=== PATIENT | female | born 1985 | race Caucasian/White ===

== ENCOUNTER 2017-10-14 16:23 | Emergency (ER) | payer OTHER, SELFPAY ==
[2017-10-14 16:24] VITALS: BP 146/97; PULSE 110; RESP 16; TEMP 37.1; O2SAT 99; BMI 45.1
--- NOTE | 2017-10-14 16:32 | CT_ITS ---
STUDY: CT ABDOMEN AND PELVIS WITH CONTRAST REASON FOR EXAM: Female, 32 years old. Chest pain. History of breast cancer and uterine cancer. RADIATION DOSAGE (If Supplied By Facility): CTDIvol = ( 19.44 ) mGy, DLP = ( 1998.78 ) mGycm TECHNIQUE: Transaxial images were obtained from the dome of the diaphragm to the symphysis pubis without oral contrast. Intravenous contrast was administered. Sagittal and coronal images were reconstructed. Individualized dose optimization techniques were used for this CT. COMPARISON: 03/26/2017. FINDINGS: There are no calcified gallstones present. The liver is within normal limits. There are no suspicious hepatic lesions. The spleen is normal in size. The pancreas is within normal limits. The adrenal glands are within normal limits. There are no obstructing renal stones. There is no hydronephrosis. There are no focal renal lesions. Normal visualized stomach. There is no bowel obstruction or inflammation. The appendix is visualized and appears normal. The aorta is normal in caliber. There is no abdominal or pelvic free air, free fluid, fluid collection or lymphadenopathy. The patient is status post hysterectomy. There are no destructive osseous lesions. CT/Abdomen/Pelvis without Cont IMPRESSION: No acute abdominal or pelvic pathology. Fatty liver. Electronically Signed: Darci Velazquez, at 19:17 EST Tel , Service support ,
--- NOTE | 2017-10-14 16:41 | CT_ITS ---
STUDY: CTA CHEST REASON FOR EXAM: Female, 32 years old. Chest pain RADIATION DOSAGE (If Supplied By Facility): DLP = ( 1999 ) mGycm TECHNIQUE: The examination was performed with the intravenous administration of 100ML ml of Isovue 300 contrast material. Post-processing of the angiographic images was performed, with multiplanar reformation and 3D reconstruction. Individualized dose optimization techniques were used for this CT. COMPARISON: 03/10/2017 FINDINGS: There are no pulmonary infiltrates or pleural effusions. There is no pneumothorax. There are no filling defects within the pulmonary arteries to suggest pulmonary embolus. There is no evidence of thoracic aortic aneurysm or dissection. The heart and pericardium are within normal limits. There is no thoracic lymphadenopathy. Images through the upper abdomen demonstrate no significant abnormality. There are no destructive osseous lesions. CT/CTA Chest W/WO Contrast IMPRESSION: No evidence of pulmonary and was or other acute thoracic disease. Electronically Signed: Darci Velazquez, at 18:54 EST Tel , Service support ,
--- NOTE | 2017-10-14 16:41 | NURSING ---
ATTEMPTED TO CALL [facility] TO GET RESULTS OF URINE. NO ANSWER AFTER LETTING PHONE RING. HAD BUTT TRIMMER CONNECTED ME TO BACK LINE , SAME RESULT. AWARE
[2017-10-14] MEDS: 0.9% Normal Saline 1,000 ML 999 ML IV (16:50)
[2017-10-14] MEDS: Ondansetron 4 MG/2 ML Vial IV (16:50)
[2017-10-14 16:55] LABS: Absolute Neutrophil Count 4.2 X10^3/uL (2.0-7.7); Basophil# 0.03 X10^3/uL; Basophil% 0.4 % (0-1); Eosinophil# 0.28 X10^3/uL; Eosinophils% 3.4 % (0-5); Hematocrit 44.2 % (37-47); Hemoglobin 15.3 g/dl (12.0-15.0); Lymphocyte % 36.5 % (19-41); Mean Corp Hgb Conc 34.6 g/gl (32-36); Mean Corpuscular Hgb 29.6 pg (27.0-32.0); Mean Corpuscular Volume 85.5 fL (81-99); Mean Platelet Vol. 9.1 fl (6.2-12.0); Monocyte# 0.71 X10^3/uL; Monocyte% 8.6 % (0-10); Neutrophil # 4.17 X10^3/uL (2.7-7.7); Neutrophil % 50.9 % (47-70); Platelet Count 260 K/mm3 (150-450); RBC Distribution Width CV 12.7 % (11.6-14.6); RBC Distribution Width SD 39.5 fl (35.1-43.9); Red Blood Count 5.17 M/mm3 (4.2-5.4); White Blood Count 8.2 K/mm3 (4.4-11.0)
[2017-10-14 16:56] LABS: POSITIVE COUNT NO; POSITIVE DIFFERENTIAL NO; POSITIVE MORPHOLOGY NO
[2017-10-14] MEDS: MethylPREDNISolone 125 MG/2 ML Vial IV (17:09)
[2017-10-14] MEDS: DiphenhydrAMINE 50 MG/ML Syringe 25 MG IV (17:09)
[2017-10-14] MEDS: HYDROmorphone 1 MG/ML Syringe IV (17:27)
--- NOTE | 2017-10-14 17:28 | ED.DCSUM_ITS ---
- ER Visit Summary Date of Service: 10/14/17 Chief Complaint: Left flank pain History of Present Illness: The patient is a 32 F presenting with left flank pain. She states this started approximately 5 days ago and has progressively worsened. She noticed blood in her urine. She has had mild dysuria. She has had nausea and vomiting. She went to urgent care today. She states they tested her urine which had blood but no signs of infection. They were concerned about kidney stone and sent her to the ED. She has a history of breast cancer. She sees Dr. Marion. History of total hysterectomy. Physical Examination: Vitals are stable. Patient is afebrile. Alert no acute distress. HEENT exam is unremarkable. Neck is supple. Lungs are clear and equal bilaterally. Heart is regular rate and rhythm. Abdomen is soft nontender nondistended. No guarding or rebound Back: Left CVA tenderness and left mid back tenderness Extremities are unremarkable. Skin is warm and dry. Remainder of exam is unremarkable. Emergency Department Course and Treatment: She was given morphine and Zofran. She continues to have pain. She is given Dilaudid IV. She was given pretreatment for her CT scan with Solu-Medrol and Benadryl. CBC is unremarkable. Chemistries unremarkable. Urinalysis is normal. Her back pain is in the left mid back and left flank. With her history of cancer and hormone replacement, CTA chest was obtained which shows no evidence of PE. CT abdomen shows no evidence of kidney stone or acute process. On further discussion patient states that she was not sure if the bleeding was in her urine or vaginal bleeding. She denies any vaginal discharge or rash. Pelvic exam shows no evidence of bleeding, rash, discharge. On further discussion with the patient, she does have a 1-year-old who she carries frequently. She also notes that she lifted a mattress recently. I believe that she may have strained her back. She states that she also has used a new body soap and women's soap which may be contributing to her dysuria. She is advised to discontinue use of the new soaps. She was given Valium p.o. she is advised to follow-up with her primary care physician. Advised return to ED if worsening complaints. Disposition: Discharge home Impression: Back pain, dysuria This note was generated with [employer] software. It may contain incorrect words, spelling, and punctuation that were not noted in review of the chart prior to signing ED Disposition - Plan for ED Patient: Chief Complaint: Flank Pain Referrals: Grant Flynn RADIO ARTIST-C [Primary Care Provider] -
[2017-10-14 17:29] LABS: BUN 9 mg/dL (7-18); Creatinine, Serum 0.82 mg/dL (0.55-1.02); EST Glomerular Filtration Rate 86 mL/min (>60); Estimated Creatinine Clearance 81.48 ml/min; Glucose 104 mg/dL (74-106)
[2017-10-14 17:30] LABS: Anion Gap 9 (5-15); BUN/Creat Ratio 10.9 RATIO (10-20); Calcium,Total 9.1 mg/dL (8.5-10.1); Chloride 107 mmol/L (98-107); Est Glom Filt Rate - Afr Amer 103 mL/min (>60); Potassium 3.6 mmol/L (3.5-5.1); Sodium Level 141 mmol/L (136-145)
[2017-10-14 18:19] LABS: Bacteria 0 SEEN /hpf (None Seen); Mucous, Urine 0 SEEN /hpf (<or=2+); Red Blood Cells-Urine 0 SEEN /hpf (0-5)
[2017-10-14 18:27] LABS: Color, Urine Straw (Yellow); Glucose, Dipstick Normal (Normal); Ketone-Dipstick Negative (Negative); Leukocyte Esterase-Dipstick Negative /ul (Negative); Nitrite-Dipstick Negative (Negative); Occult Blood-Urine Negative /ul (Negative); Protein-Dipstick Negative (Negative); Urine Bilirubin Dipstick Negative (Negative); Urine Clarity Sl. Cloudy (Clear); Urine Urobilinogen Normal (Normal); Urine pH 6.5 (5.0 - 8.0)
[2017-10-14 18:42] LABS: Squamous Epithelial Cells - UA 0-5 SEEN /hpf (5-10)
[2017-10-14 18:43] LABS: White Blood Cells 0-5 SEEN /hpf (0-5)
[2017-10-14] MEDS: DiphenhydrAMINE 50 MG/ML Syringe 12.5 MG IV (18:46)
[2017-10-14 19:44] VITALS: BP 133/82; PULSE 89; RESP 16; O2SAT 96
[2017-10-14] MEDS: diazePAM 5 MG Tablet PO (19:44)
--- NOTE | 2017-10-14 20:02 | DCINST.ED_ITS ---
ED Disposition - Plan for ED Patient: Chief Complaint: Flank Pain Instructions: ED Spasm Back No Trauma, ED Dysuria Uncertain Cause Prescriptions: Phenazopyridine HCl [Pyridium] 200 mg PO BID PRN PRN #10 tablet PRN Reason: Pain Cyclobenzaprine [Flexeril] 10 mg PO TID PRN #20 tablet PRN Reason: Muscle Spasm Referrals: Grant Flynn, AMMUNITION OFFICER-C [Primary Care Provider] -
[2017-10-14 20:42] VITALS: BP 139/85; PULSE 72; RESP 17; O2SAT 93
--- NOTE | 2017-10-14 20:43 | ED.RN ---
PT EDUCATED ON DISCHARGE INSTRUCTIONS, AND HOME GOING PRESCRIPTIONS. PT VERBALIZES UNDERSTANDING. PT EDUCATED NOT TO DRIVE AFTER HAVING NARCOTIC MEDICATION, AND VERBALIZES UNDERSTANDING. IV D/C AND COVERED WITH 2X2 GAUZE DRESSING. MINIMAL BLEEDING NOTED. PT DRESSES SELF.
== END 2017-10-14 20:46 | disposition home or self-care (01) ==
LOC: ED 17:03
PROVIDERS: Emergency Provider Emergency Medicine; Family Provider Nurse Practitioner Family; PCP Nurse Practitioner Family
DX: R30.0 Dysuria (principal); M54.6 Pain in thoracic spine; Z85.3 Personal history of malignant neoplasm of breast; Z79.899 Other long term (current) drug therapy
CPT/HCPCS: 71275; 74176; 80048; 81001; 85025; 99284; J7030; Q9967; J2405

== ENCOUNTER → 2017-10-27 08:49 | Outpatient (CLI) | payer OTHER, SELFPAY ==
[2017-10-27 10:19] LABS: Absolute Lymphocyte Count 2.27 X10^3/ul (0.83-4.51); Absolute Neutrophil Count 5.7 X10^3/uL (2.0-7.7); Basophil# 0.03 X10^3/uL; Basophil% 0.3 % (0-1); Eosinophil# 0.22 X10^3/uL; Eosinophils% 2.5 % (0-5); Hematocrit 41.5 % (37-47); Hemoglobin 14.1 g/dl (12.0-15.0); Lymphocyte # 2.27 X10^3/ul (4.0); Mean Corpuscular Volume 85.2 fL (81-99); Mean Platelet Vol. 9.3 fl (6.2-12.0); Monocyte# 0.45 X10^3/uL; Monocyte% 5.2 % (0-10); Neutrophil # 5.74 X10^3/uL (2.7-7.7); Neutrophil % 65.8 % (47-70); Platelet Count 297 K/mm3 (150-450); RBC Distribution Width CV 12.4 % (11.6-14.6); Red Blood Count 4.87 M/mm3 (4.2-5.4); White Blood Count 8.7 K/mm3 (4.4-11.0)
[2017-10-27 10:20] LABS: POSITIVE COUNT NO; POSITIVE DIFFERENTIAL NO; POSITIVE MORPHOLOGY NO
[2017-10-27 10:45] LABS: ALB/GLOB Ratio 0.9 RATIO (0.9-2.4); AST(SGOT) 19 U/L (15-37); Alanine Aminotransfer ALT/SGPT 36 U/L (13-56); Albumin, Serum 3.7 g/dL (3.2-5.0); Alkaline Phosphatase 120 U/L (45-117); Anion Gap 7 (5-15); BUN 10 mg/dL (7-18); BUN/Creat Ratio 12.3 RATIO (10-20); Calcium,Total 8.7 mg/dL (8.5-10.1); Chloride 106 mmol/L (98-107); Cholesterol 180 mg/dL (200); Creatinine, Serum 0.82 mg/dL (0.55-1.02); EST Glomerular Filtration Rate 86 mL/min (>60); Est Glom Filt Rate - Afr Amer 105 mL/min (>60); Globulin 3.9 g/dL (2.2-4.2); Glucose 92 mg/dL (74-106); High Density Lipoprotein 45 mg/dL; Potassium 3.9 mmol/L (3.5-5.1); Protein, Total 7.6 g/dL (6.4-8.2); Sodium Level 142 mmol/L (136-145); Thyroid Stim Hormone (TSH) 1.43 uIU/mL (0.358-3.74); Triglycerides 112 mg/dL; Very Low Density Lipoprotein 22 mg/dL (5-40)
[2017-10-27 11:20] LABS: Vitamin B12 397 pg/mL (211-911); Vitamin D,25 Hydroxy 10.7 ng/mL (29.95-100.01)
== END ==
LOC: MTLAB 08:52
PROVIDERS: Family Provider Nurse Practitioner Family; PCP Nurse Practitioner Family; Visit Provider Internal Medicine
DX: G62.9 Polyneuropathy, unspecified (principal); C79.9 Secondary malignant neoplasm of unspecified site; C50.411 Malignant neoplasm of upper-outer quadrant of right female breast; Z17.0 Estrogen receptor positive status [ER+]; I10 Essential (primary) hypertension
CPT/HCPCS: 36415; 80053; 80061; 82306; 82607; 84443; 85025

== ENCOUNTER 2018-03-08 11:29 | Emergency (ER) | payer OTHER, SELFPAY ==
[2018-03-08 11:30] VITALS: BP 162/97; PULSE 116; RESP 18; TEMP 36.3; O2SAT 98; BMI 46.0
--- NOTE | 2018-03-08 11:58 | ED.DCSUM_ITS ---
- ER Visit Summary Date of Service: 03/08/18 Chief Complaint: Migraine, nausea vomiting History of Present Illness: The patient is a 32 F presents to the emergency department with headache and nausea and vomiting. The patient states that she cut her left fifth toe about a week ago. He states she cannot get it to stop bleeding. She went to urgent care on Monday. She had a tetanus shot was placed on Keflex. She states she has been taking the Keflex 3 times a day. Last night, after taking it, she became acutely nauseated. She states she had a few bouts of emesis. Since then, she has had a dull progressive headache. She has a history of migraine and states this feels similar. She is also having diffuse muscle pains. She denies any fevers or chills. She denies any trauma or carbon monoxide exposure. She denies any abdominal pain, just cramping with the vomiting. She states she has been on Keflex before and it did seem to tolerate it. Physical Examination: Well-appearing patient is in no acute distress. Head is normocephalic, atraumatic. Pupils equal round reactive, extraocular muscles intact. There is no temporal artery tenderness. There is no vesicular rash. Neck supple. Kernig's and Brudzinski's are negative. Heart regular rate and rhythm. Lungs clear, chest nontender. Abdomen soft, nontender, nondistended. Neuro exam displays no focal or lateralizing deficit. 2+ symmetric lower extremity reflexes. No clonus. No ataxia or gait abnormality. Test Results: [] Emergency Department Course and Treatment: The patient has benign neurologic examination. She is not encephalopathic. She is not meningitic. I do feel that this is more likely migraine that was caused by medication intolerance. There is no rigidity of the muscles. Compartments are soft. She really has no symptoms that are concerning for rhabdomyolysis. IV was established. Patient was treated with Toradol, Benadryl, and Compazine. She had significant improvement of her headache. I did obtain screening labs given her vomiting. These were unremarkable. On reevaluation she is resting comfortably. At this time, I do feel that she is safe for outpatient therapy. I am going to have her stop her Keflex as her foot wound is well healed without evidence of cellulitis. She will be treated with antiemetics. She will be discharged home , return with any worsening symptoms and she is comfortable with this. Treatment Plan: [] Disposition: Discharge Impression: 1. Headache 2. Medication reaction This note was generated with [employer] dictation software. It may contain incorrect words, spelling, and punctuation that were not noted in review of the chart prior to signing ED Disposition - Plan for ED Patient: Chief Complaint: Headache Instructions: ED Cephalgia Unspecified Prescriptions: Ondansetron [Zofran Odt] 4 mg PO Q8H PRN PRN #10 tab PRN Reason: Nausea Referrals: Alvaro Gonzalez MD [Primary Care Provider] -
[2018-03-08] MEDS: Ketorolac 30 MG/ML Syringe IV (12:07)
[2018-03-08] MEDS: DiphenhydrAMINE 50 MG/ML Syringe IV (12:07)
[2018-03-08] MEDS: 0.9% Normal Saline 1,000 ML 1000 ML IV (12:07)
[2018-03-08] MEDS: proCHLORPERazine 10 MG/2 ML Vial IV (12:07)
[2018-03-08 12:25] LABS: Absolute Lymphocyte Count 1.71 X10^3/ul (0.83-4.51); Absolute Neutrophil Count 5.4 X10^3/uL (2.0-7.7); Basophil# 0.02 X10^3/uL; Basophil% 0.3 % (0-1); Eosinophil# 0.23 X10^3/uL; Hematocrit 42.3 % (37-47); Hemoglobin 14.2 g/dl (12.0-15.0); Lymphocyte # 1.71 X10^3/ul (4.0); Lymphocyte % 22.1 % (19-41); Mean Corp Hgb Conc 33.6 g/gl (32-36); Mean Corpuscular Hgb 28.7 pg (27.0-32.0); Mean Corpuscular Volume 85.6 fL (81-99); Mean Platelet Vol. 9.3 fl (6.2-12.0); Monocyte% 5.2 % (0-10); Neutrophil # 5.37 X10^3/uL (2.7-7.7); Neutrophil % 69.3 % (47-70); Platelet Count 234 K/mm3 (150-450); RBC Distribution Width CV 12.6 % (11.6-14.6); RBC Distribution Width SD 39.6 fl (35.1-43.9); Red Blood Count 4.94 M/mm3 (4.2-5.4); White Blood Count 7.7 K/mm3 (4.4-11.0)
[2018-03-08 12:34] LABS: Anion Gap 9 (5-15); BUN 11 mg/dL (7-18); BUN/Creat Ratio 12.6 RATIO (10-20); Calcium,Total 8.6 mg/dL (8.5-10.1); Chloride 105 mmol/L (98-107); Creatinine, Serum 0.87 mg/dL (0.55-1.02); EST Glomerular Filtration Rate 80 mL/min (>60); Est Glom Filt Rate - Afr Amer 96 mL/min (>60); Estimated Creatinine Clearance 76.79 ml/min; Glucose 95 mg/dL (74-106); Potassium 3.5 mmol/L (3.5-5.1); Sodium Level 142 mmol/L (136-145)
[2018-03-08 12:37] LABS: POSITIVE COUNT NO; POSITIVE DIFFERENTIAL NO; POSITIVE MORPHOLOGY NO
== END 2018-03-08 13:01 | disposition home or self-care (01) ==
PROVIDERS: Emergency Provider Emergency Medicine; Family Provider Internal Medicine; PCP Internal Medicine
DX: G44.40 Drug-induced headache, not elsewhere classified, not intractable (principal); T36.1X5A Adverse effect of cephalosporins and other beta-lactam antibiotics, initial encounter; Y92.9 Unspecified place or not applicable; E66.9 Obesity, unspecified
CPT/HCPCS: 80048; 85025; 96374; 96375; 99284; J7030

== ENCOUNTER → 2018-04-20 13:58 | Outpatient (CLI) | payer OTHER, SELFPAY | PROVIDERS: Family Provider Internal Medicine; PCP Internal Medicine; Visit Provider Physician Assistant | DX: M25.561 Pain in right knee (principal) | CPT/HCPCS: 73564 ==

== ENCOUNTER 2018-05-26 23:39 | Emergency (ER) | payer OTHER, SELFPAY ==
[2018-05-26 23:40] VITALS: BP 157/110; PULSE 105; RESP 15; TEMP 36.8; O2SAT 97; BMI 44.2
[2018-05-27 00:35] VITALS: BP 161/110; PULSE 94; RESP 18; O2SAT 96
[2018-05-27] MEDS: Ketorolac 30 MG/ML Syringe IV (00:41)
[2018-05-27] MEDS: DiphenhydrAMINE 50 MG/ML Syringe 25 MG IV (00:42)
[2018-05-27] MEDS: 0.9% Normal Saline 1,000 ML 999 ML IV (00:42)
[2018-05-27] MEDS: proCHLORPERazine 10 MG/2 ML Vial IV (00:42)
[2018-05-27] MEDS: MethylPREDNISolone 125 MG/2 ML Vial IV (00:42)
--- NOTE | 2018-05-27 01:45 | ED.VISSUMM ---
- ER Visit Summary Date of Service: 05/27/18 Chief Complaint: Allergic reaction History of Present Illness: The patient is a 32 F with a possible allergic reaction. Patient has had ongoing headaches. She has a history of migraines. She was recently started on sumatriptan. She took a dose this past Monday and then another dose this evening. After the dose this evening she had some chest tightness, anxiety, and felt like something was in her throat. She has a history of multiple allergies and has required epinephrine for anaphylaxis in the past. She did not take epinephrine this evening, but did try Benadryl. It did not seem to help much. Denies any other new or different headache symptoms. No trauma. No blood thinners. Denies any confusion. Denies abdominal cramping or diarrhea. Denies any wheezing. Physical Examination: Blood pressure 157/110. Heart rate 105. Vital signs otherwise unremarkable. Afebrile. Patient is sitting in a dark room with her eyes covered. Head and neck atraumatic. HEENT exam on her [place]. Cranial nerves grossly intact. Heart tachycardic but regular. Lungs clear. No gross neurologic abnormalities. Alert and oriented. Test Results: None indicated Emergency Department Course and Treatment: Patient was treated with fluids, Toradol, Benadryl, Compazine, and Solu-Medrol. On reevaluation, the patient's allergy symptoms have resolved. Her headache is slightly better, but she does have some persistent headache. Her heart rate is 93. She feels comfortable going home. There is no indication for emergent diagnostic testing otherwise. No indication for hospitalization at this point. Patient was prescribed a course of Pepcid, Benadryl, and prednisone. She will discontinue sumatriptan. She has a referral to neurology. She will return for any new or worsening issues. Treatment Plan: As above Disposition: Discharged Impression: 1. Headache 2. Allergic reaction to sumatriptan This note was generated with [employer] dictation software. It may contain incorrect words, spelling, and punctuation that were not noted in review of the chart prior to signing ED Disposition - Plan for ED Patient: Chief Complaint: Allergic Reaction Referrals: Alvaro Gonzalez MD [Primary Care Provider] -
--- NOTE | 2018-05-27 01:48 | ED.DEP ---
ED Disposition - Plan for ED Patient: Chief Complaint: Allergic Reaction Instructions: ED Drug React Allergic Prescriptions: Prednisone [Deltasone] 60 mg PO DAILY #15 tab Famotidine [Pepcid] 20 mg PO BID #10 tab Diphenhydramine HCl [Benadryl Allergy] 25 mg PO TID #15 tab Referrals: Alvaro Gonzalez MD [Primary Care Provider] -
[2018-05-27 02:18] VITALS: BP 141/91; PULSE 89; RESP 15
== END 2018-05-27 02:21 | disposition home or self-care (01) ==
LOC: ED 05-27 00:30
PROVIDERS: Emergency Provider Emergency Medicine; Family Provider Internal Medicine; PCP Internal Medicine
DX: R51 Headache (principal); T39.8X5A Adverse effect of other nonopioid analgesics and antipyretics, not elsewhere classified, initial encounter; Y92.9 Unspecified place or not applicable; I10 Essential (primary) hypertension; Z85.3 Personal history of malignant neoplasm of breast; F32.9 Major depressive disorder, single episode, unspecified; F41.9 Anxiety disorder, unspecified
CPT/HCPCS: 96361; 96374; 96375; 99283; J7030; A4216

== ENCOUNTER → 2018-05-29 09:54 | Outpatient (CLI) | payer OTHER, SELFPAY ==
[2018-05-29 11:16] LABS: Hemoglobin A1c 5.7 % (4.2-6.3)
[2018-05-29 11:34] LABS: Rheumatoid Factor < 10.0 IU/mL (<15); Thyroid Stim Hormone (TSH) 1.56 uIU/mL (0.358-3.74)
[2018-05-29 11:42] LABS: Vitamin B12 260 pg/mL (211-911); Vitamin D,25 Hydroxy 19.2 ng/mL (29.95-100.01)
[2018-05-30 14:07] LABS: SJOGREN'S Anti-SS-A test < 0.2 AI (0.0-0.9); SJOGREN'S Anti-SS-B test < 0.2 AI (0.0-0.9)
[2018-05-30 15:12] LABS: ANTINUCLEAR ANTIBODIES DIRECT Negative (Negative)
[2018-06-01 13:10] LABS: Albumin 3.5 g/dL (2.9-4.4); Albumin, Ur 24.6 % (.); Alpha-1-Globulin, Ur 6.6 % (.); Alpha-1-Globulins 0.2 g/dL (0.0-0.4); Alpha-2-Globulins 0.7 g/dL (0.4-1.0); Alpha-2-Globulins, Ur 20.2 % (.); Beta Globulin, Ur 33.8 % (.); Cytoplasmic Ab (C-ANCA) <1:20 titer (Neg:<1:20); Gamma Globulin 0.9 g/dL (0.4-1.8); Gamma Globulin, Ur 14.9 % (.); Immunoglobulin A 204 mg/dL (87-352); Immunoglobulin G 986 mg/dL (700-1600); Immunoglobulin M 50 mg/dL (26-217); M-Spike, Ur % Not Observed % (Not Observed); PROEL- TOTAL PROTEIN 6.6 g/dL (6.0-8.5); Total Protein, Ur 9.6 mg/dL (Not Estab.)
[2018-06-01 13:40] LABS: IFE Result, Ur Comment: (.); Perinuclear Ab (P-ANCA) <1:20 titer (Neg:<1:20)
== END ==
PROVIDERS: Family Provider Internal Medicine; PCP Internal Medicine; Referring Provider Psychiatry & Neurology Neurology; Visit Provider Psychiatry & Neurology Neurology
DX: G62.9 Polyneuropathy, unspecified (principal)
CPT/HCPCS: 36415; 82306; 82607; 82784; 83036; 84165; 84166; 84443; 86038; 86235; 86256; 86334; 86335; 86431

== ENCOUNTER → 2018-06-07 10:14 | Outpatient (CLI) | payer OTHER, SELFPAY ==
--- NOTE | 2018-06-07 10:21 | MRI_ITS ---
STUDY: MRI BRAIN WITH AND WITHOUT CONTRAST REASON FOR EXAM: Female, 32 years old. co worsenig headaches frequency/severity; HX BREAST CA. TECHNIQUE: Standardized multiplanar fat and water weighted pulse sequences were obtained. 10 ml of Gadavist contrast material was administered intravenously for the contrast portion of the examination. COMPARISON: CT dated March 22, 2017 FINDINGS: Normal size of the ventricles and extra-axial spaces for the patient's age. Normal white matter tracts of the supratentorial brain. Normal bilateral basal ganglia. Normal thalami. There is no extra-axial fluid accumulation. Normal flow voids within the major intracranial circulation suggesting patency by spin echo criteria. Normal venous enhancement. There is no enhancing intra-axial or extra-axial abnormality. Normal sella turcica, pituitary gland, infundibular stalk, optic chiasm and hypothalamus. Normal tectal plate and pineal gland. Normal midbrain, veronica and medulla. Normal cerebellum. Normal basal cisterns. Normal bilateral temporal bones. Normal bilateral internal auditory canals. No demonstrated orbital abnormality, within the constraints of a routine brain study. Normal visualized paranasal sinuses. Normal calvarium and skull base. Normal visualized soft tissue structures. Normal visualized upper cervical spine. MRI/Brain W/WO Contrast IMPRESSION: Normal unenhanced and enhanced MRI of the brain. Electronically Signed: Matt Sanchez MD at 10:37 EDT Tel , Service support ,
== END ==
LOC: MRI 10:15
PROVIDERS: Family Provider Internal Medicine; PCP Internal Medicine; Referring Provider Psychiatry & Neurology Neurology; Visit Provider Psychiatry & Neurology Neurology
DX: R51 Headache (principal)
CPT/HCPCS: 70553; A9585

== ENCOUNTER → 2018-08-17 10:50 | Outpatient (CLI) | payer OTHER, SELFPAY ==
[2018-08-17 10:50] VITALS: BMI 43.2
--- NOTE | 2018-08-17 10:57 | RAD_ITS ---
HISTORY: Neck pain. History of breast and uterine cancer COMPARISON: None FINDINGS: XR Spine Cervical 5 views The cervical vertebra show normal height and alignment. No fracture or suspicious lesion. Posterior elements appear intact. No spondylolisthesis. Cervical disc space heights appear preserved. The C1-C2 relationship is unremarkable. The paravertebral soft tissues appear negative. IMPRESSION: Normal cervical spine. at 4624 Reported and signed by: Edy Khan MD Electronically Signed: Edy Khan, at 4:24 EST Tel , Service support , RAD/Cerv Spine 4 or 5 Views
--- NOTE | 2018-08-17 10:57 | RAD_ITS ---
HISTORY: Low back pain. History of breast and uterine cancer. COMPARISON: CT abdomen and pelvis 10/14/2017 FINDINGS: XR Spine Lumbar 5 views With comparison to previous CT, no significant change. Straightening of the lumbar spine with loss of the normal lumbar lordosis. Minimal retrolisthesis of L4 on L5, unchanged. Lumbar vertebra are normal in height. No fracture or suspicious bony lesion. L4-5 minor disc space narrowing accompanied by mild endplate spurring. The SI joints appear preserved. RAD/L/S Spine Min 4 Views IMPRESSION: 1. No fracture, acute disease, or metastatic bone disease identified. 2. L4-5 early degenerative disc disease. 3. Loss of the normal lumbar lordosis, unchanged. at 5908 Reported and signed by: Edy Khan MD Electronically Signed: Edy Khan, at 4:21 EST Tel , Service support ,
== END ==
PROVIDERS: Family Provider Internal Medicine; PCP Internal Medicine; Referring Provider Anesthesiology; Visit Provider Anesthesiology
DX: M54.2 Cervicalgia (principal); M54.5 Low back pain
CPT/HCPCS: 72050; 72110

== ENCOUNTER → 2018-10-09 14:43 | Outpatient (CLI) | payer OTHER, SELFPAY ==
[2018-10-09 13:36] VITALS: BMI 43.2
[2018-10-09 17:29] LABS: Absolute Lymphocyte Count 2.87 X10^3/ul (0.83-4.51); Absolute Neutrophil Count 4.7 X10^3/uL (2.0-7.7); Basophil# 0.02 X10^3/uL; Basophil% 0.2 % (0-1); Eosinophils% 1.2 % (0-5); Hematocrit 47.3 % (37-47); Hemoglobin 15.9 g/dl (12.0-15.0); Lymphocyte # 2.87 X10^3/ul (4.0); Lymphocyte % 33.6 % (19-41); Mean Corp Hgb Conc 33.6 g/gl (32-36); Mean Corpuscular Hgb 29.8 pg (27.0-32.0); Mean Corpuscular Volume 88.7 fL (81-99); Mean Platelet Vol. 9.2 fl (6.2-12.0); Monocyte# 0.84 X10^3/uL; Monocyte% 9.8 % (0-10); Neutrophil # 4.69 X10^3/uL (2.7-7.7); Platelet Count 260 K/mm3 (150-450); RBC Distribution Width CV 13.3 % (11.6-14.6); RBC Distribution Width SD 42.9 fl (35.1-43.9); Red Blood Count 5.33 M/mm3 (4.2-5.4); White Blood Count 8.5 K/mm3 (4.4-11.0)
[2018-10-09 17:30] LABS: POSITIVE COUNT NO; POSITIVE DIFFERENTIAL NO; POSITIVE MORPHOLOGY NO
[2018-10-09 17:43] LABS: BUN 16 mg/dL (7-18); Creatinine, Serum 0.98 mg/dL (0.55-1.02); Glucose 85 mg/dL (74-106)
[2018-10-09 17:44] LABS: AST(SGOT) 17 U/L (15-37); Alanine Aminotransfer ALT/SGPT 54 U/L (13-56); Albumin, Serum 3.7 g/dL (3.2-5.0); Alkaline Phosphatase 104 U/L (45-117); Anion Gap 7 (5-15); BUN/Creat Ratio 16.4 RATIO (10-20); Chloride 103 mmol/L (98-107); EST Glomerular Filtration Rate 70 mL/min (>60); Est Glom Filt Rate - Afr Amer 84 mL/min (>60); Globulin 3.6 g/dL (2.2-4.2); Potassium 3.2 mmol/L (3.5-5.1); Protein, Total 7.3 g/dL (6.4-8.2); Sodium Level 139 mmol/L (136-145)
== END ==
PROVIDERS: Family Provider Internal Medicine; PCP Internal Medicine; Referring Provider Nurse Practitioner Family; Visit Provider Nurse Practitioner Family
DX: R06.02 Shortness of breath (principal); R11.2 Nausea with vomiting, unspecified
CPT/HCPCS: 36415; 80053; 85025

== ENCOUNTER 2018-11-12 17:43 | Emergency (ER) | payer OTHER, SELFPAY ==
[2018-10-09 13:36] VITALS: BMI 43.2
[2018-11-12 17:44] VITALS: BP 156/103; PULSE 116; RESP 16; TEMP 36.4; O2SAT 98; BMI 46.0
--- NOTE | 2018-11-12 18:49 | ED.DCSUM_ITS ---
- ER Visit Summary Date of Service: 11/12/18 Chief Complaint: Right-sided headache History of Present Illness: The patient is a [address] migraine headaches. Also prior history of hypertension and prior breast cancer with bilateral mastectomies. Patient had a prior MRI in May of last year which was read as normal by radiology. No family history of brain aneurysms. She denies any trauma. No sinus congestion. She has had headaches like this before. States behind her right eye into the back part of her scalp. Denies any neurological symptoms. She is on no blood thinners. Physical Examination: Young female sitting in bed in a darkened room. Vital signs are stable. She is afebrile. She does not look septic or toxic. HEENT exam pupils round reactive light. Positive photophobia. No nerve palsy. Extra motions intact. No facial droop. No signs of trauma. Scalp unremarkable nontender. Neck nontender. No meningismus. Able to touch chin to chest. Lungs clear to auscultation bilaterally. Heart regular rhythm no murmur. Chest wall nontender. Abdomen obese but soft. Nontender. Normal bowel sounds no peritoneal signs. Patient is moving all 4 extremities. Neurovascular intact. She has 5 out of 5 motor strength with both upper and lower extremities. 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 Normal dorsi plantar flexion. Neurologically she is awake alert with no focal motor or sensory deficits. Fingertip to nose within normal limits bilaterally. Test Results: None. I do not feel the patient needs any imaging. She has normal neurologic exam and a recent negative MRI. Emergency Department Course and Treatment: Patient treated with IV fluids, IV Toradol, IV Phenergan and Benadryl. Repeat exam patient is doing well. She still has some discomfort and neurologic exam remains normal and 2140. She will be discharged to home after a dose of IV Nubain. Treatment Plan: Fluids and rest. Tylenol and Motrin as needed. Follow-up. Disposition: Discharge Impression: Acute cephalgia history of migraines This note was generated with [employer] dictation software. It may contain incorrect words, spelling, and punctuation that were not noted in review of the chart prior to signing ED Disposition - Plan for ED Patient: Referrals: Alvaro Gonzalez MD [Primary Care Provider] -
[2018-11-12] MEDS: DiphenhydrAMINE 50 MG/ML Syringe IV (19:01)
[2018-11-12] MEDS: 0.9% Normal Saline 1,000 ML 1000 ML IV (19:01)
[2018-11-12] MEDS: proMETHazine 25 MG/ML Syringe 12.5 MG IV (19:01)
[2018-11-12] MEDS: Ketorolac 30 MG/ML Syringe IV (19:02)
--- NOTE | 2018-11-12 20:54 | ED.RN ---
dr briggs aware pt feeling anxious.
[2018-11-12 20:55] VITALS: RESP 18
--- NOTE | 2018-11-12 21:45 | ED.DEP ---
ED Disposition - Plan for ED Patient: Disposition: Home or Assisted Living Instructions: ED Headache Migraine Referrals: Alvaro Gonzalez MD [Primary Care Provider] - 3-5 Days if not improving Additional Instructions: Fluids and rest. Alternate Tylenol and for pain. See her doctor if not improving.
[2018-11-12] MEDS: Nalbuphine 10 MG/ML Ampul IV (22:18)
[2018-11-12 22:55] VITALS: BP 129/94; PULSE 97; RESP 18; O2SAT 97
== END 2018-11-12 22:56 | disposition home or self-care (01) ==
PROVIDERS: Emergency Provider Emergency Medicine; Family Provider Internal Medicine; PCP Internal Medicine
DX: R51 Headache (principal); R11.0 Nausea; I10 Essential (primary) hypertension; Z85.3 Personal history of malignant neoplasm of breast; Z86.718 Personal history of other venous thrombosis and embolism; Z86.711 Personal history of pulmonary embolism
CPT/HCPCS: 96361; 96374; 96375; 99284; J7030; A4216

== ENCOUNTER 2018-12-01 23:03 | Emergency (ER) | payer MEDICAID, SELFPAY ==
[2018-12-01 23:06] VITALS: BP 157/101; PULSE 92; RESP 16; TEMP 36.6; O2SAT 96; BMI 48.4
[2018-12-01] MEDS: MethylPREDNISolone 125 MG/2 ML Vial 60 MG IV (23:37)
[2018-12-01] MEDS: DiphenhydrAMINE 50 MG/ML Syringe 25 MG IV (23:37)
[2018-12-01] MEDS: Morphine 4 MG/ML Syringe IV (23:38)
[2018-12-01 23:45] VITALS: BP 147/104; PULSE 81; RESP 16; O2SAT 97
--- NOTE | 2018-12-01 23:53 | ED.VISSUMM ---
- ER Visit Summary Date of Service: 12/01/18 Chief Complaint: Allergic reaction History of Present Illness: The patient is a 33 F who presents with an allergic reaction that began today. Patient states they were burning wood and branches outside today. Patient states that she felt like her throat was swelling. Patient took some Benadryl at home. Patient states she was able to take a nap after this. Patient states she woke up and the swelling became worse. Patient states she has tightness in her throat with swallowing. Patient denies any shortness of breath. Patient admits to some diffuse hives. Patient denies any fevers or chills. Physical Examination: Vital signs are stable. Patient is afebrile. Patient is in no acute distress. Oral mucosa is pink and moist. Oropharynx is clear. Airway is patent. Neck is supple. Trachea is midline. There is no JVD noted. Heart was regular rate and rhythm. Lungs are clear and equal bilaterally. Abdomen is soft. Bowel sounds are normal. There is no tenderness. Skin is warm dry. There is some urticaria noted. There is no involvement of the mucous membranes. There are no petechia noted. Emergency Department Course and Treatment: Patient was given Solu-Medrol, Pepcid, Benadryl, and morphine. Patient developed a headache due to the Solu-Medrol. Patient states that whenever she gets steroid she develops a migraine headache. Patient was given Reglan 10 mg IV which had minimal improvement of her headache. Patient was given a repeat dose of morphine. Patient states her headache had improved. Patient's urticaria has improved. The rings from her left hand were removed. Patient was instructed to continue Benadryl as needed for any itching or swelling. Patient was instructed to follow-up with her primary care physician in 5-7 days. Patient understood and was agreeable with the plan. All questions were answered. Disposition: Discharge home Impression: Allergic reaction This note was generated with [employer] dictation software. It may contain incorrect words, spelling, and punctuation that were not noted in review of the chart prior to signing ED Disposition - Plan for ED Patient: Disposition: Home or Assisted Living Diagnosis: Allergic reaction Instructions: ED Allergic Reaction General Other Referrals: Alvaro Gonzalez MD [Primary Care Provider] - 5-7 Days
--- NOTE | 2018-12-01 23:56 | ED.DCSUM_ITS ---
- ER Visit Summary Date of Service: 12/01/18 Chief Complaint: Allergic reaction History of Present Illness: The patient is a 33 F who presents with an allergic reaction that began today. Patient states they were burning wood and branches outside today. Patient states that she felt like her throat was swelling. Patient took some Benadryl at home. Patient states she was able to take a nap after this. Patient states she woke up and the swelling became worse. Patient states she has tightness in her throat with swallowing. Patient denies any shortness of breath. Patient admits to some diffuse hives. Patient denies any fevers or chills. Physical Examination: Vital signs are stable. Patient is afebrile. Patient is in no acute distress. Oral mucosa is pink and moist. Oropharynx is clear. Airway is patent. Neck is supple. Trachea is midline. There is no JVD noted. Heart was regular rate and rhythm. Lungs are clear and equal bilaterally. Abdomen is soft. Bowel sounds are normal. There is no tenderness. Skin is warm dry. There is some urticaria noted. There is no involvement of the mucous membranes. There are no petechia noted. Emergency Department Course and Treatment: Patient was given Solu-Medrol, Pepcid, Benadryl, and morphine. Patient developed a headache due to the Solu- Medrol. Patient states that whenever she gets steroid she develops a migraine headache. Patient was given Reglan 10 mg IV which had minimal improvement of her headache. Patient was given a repeat dose of morphine. Patient states her headache had improved. Patient's urticaria has improved. The rings from her left hand were removed. Patient was instructed to continue Benadryl as needed for any itching or swelling. Patient was instructed to follow-up with her primary care physician in 5-7 days. Patient understood and was agreeable with the plan. All questions were answered. Disposition: Discharge home Impression: Allergic reaction This note was generated with [employer] dictation software. It may contain incorrect words, spelling, and punctuation that were not noted in review of the chart prior to signing ED Disposition - Plan for ED Patient: Disposition: Home or Assisted Living Diagnosis: Allergic reaction Instructions: ED Allergic Reaction General Other Referrals: Alvaro Gonzalez MD [Primary Care Provider] - 5-7 Days
[2018-12-02] MEDS: Metoclopramide 10 MG/2 ML Vial IV (00:16)
[2018-12-02] MEDS: Morphine 4 MG/ML Syringe IV (01:10)
[2018-12-02 03:10] VITALS: BP 138/84; PULSE 88; RESP 16; O2SAT 98
== END 2018-12-02 03:11 | disposition home or self-care (01) ==
PROVIDERS: Emergency Provider Emergency Medicine; Family Provider Internal Medicine; PCP Internal Medicine
DX: T78.40XA Allergy, unspecified, initial encounter (principal); X58.XXXA Exposure to other specified factors, initial encounter; R21 Rash and other nonspecific skin eruption; M79.89 Other specified soft tissue disorders; I10 Essential (primary) hypertension; Z85.3 Personal history of malignant neoplasm of breast
CPT/HCPCS: 96374; 96375; 96376; 99285; J3490

== ENCOUNTER 2018-12-17 06:48 | Emergency (ER) | payer MEDICAID, SELFPAY ==
[2018-12-17 06:49] VITALS: BP 169/66; PULSE 108; RESP 18; TEMP 36.6; O2SAT 94; BMI 48.6
--- NOTE | 2018-12-17 06:59 | ED.VISSUMM ---
- ER Visit Summary Date of Service: 12/17/18 Chief Complaint: Right ear pain History of Present Illness: The patient is a 33 F who presents with right ear pain. She woke with symptoms an hour ago. She states it feels like someone is stabbing her in the right ear and this radiates down towards her jaw. She had a migraine several days ago but this is since resolved. No current headache. She denies congestion rhinorrhea sore throat cough fever. She did not try any medications at home. Physical Examination: Heart rate 108 blood pressure 169/66 Patient appears uncomfortable There is no effusion on the right but landmarks are easily visualized the tympanic membrane is not bulging is not erythematous Heart tachycardic No respiratory distress Alert Test Results: Not indicated Emergency Department Course and Treatment: Patient appears to have serous otitis. I do not see an indication for antibiotics at this point. She was advised on supportive care. She was given ibuprofen for pain. She understands to return if new or worsening symptoms was discharged home. Treatment Plan: [] Disposition: Discharge Impression: Right otalgia This note was generated with [employer] dictation software. It may contain incorrect words, spelling, and punctuation that were not noted in review of the chart prior to signing ED Disposition - Plan for ED Patient: Referrals: Alvaro Gonzalez MD [Primary Care Provider] -
--- NOTE | 2018-12-17 07:00 | ED.DEP ---
ED Disposition - Plan for ED Patient: Instructions: ED Otitis Media Serous Adult Prescriptions: Ibuprofen [Motrin] 800 mg PO TID #15 tab Referrals: Alvaro Gonzalez MD [Primary Care Provider] -
[2018-12-17] MEDS: Ibuprofen 400 MG Tablet 800 MG PO (07:05)
== END 2018-12-17 07:18 | disposition home or self-care (01) ==
LOC: ED 07:08
PROVIDERS: Emergency Provider Emergency Medicine; Family Provider Internal Medicine; PCP Internal Medicine
DX: H92.01 Otalgia, right ear (principal); I10 Essential (primary) hypertension; Z85.3 Personal history of malignant neoplasm of breast

== ENCOUNTER 2018-12-17 11:12 | Emergency (ER) | payer MEDICAID, OTHER, SELFPAY ==
[2018-12-17 06:49] VITALS: BMI 48.6
[2018-12-17 11:13] VITALS: BP 160/105; PULSE 96; RESP 17; TEMP 37.1; O2SAT 98; BMI 47.9
--- NOTE | 2018-12-17 11:45 | ED.DEP ---
ED Disposition - Plan for ED Patient: Instructions: ED Fx Tooth Prescriptions: Hydrocodone Bitart/Apap 5-325 [[place] 5MG-325MG] 1 tablet PO Q6H PRN PRN 3 Days #10 tablet PRN Reason: Pain Referrals: Alvaro Gonzalez MD [Primary Care Provider] -
--- NOTE | 2018-12-17 11:51 | ED.VISSUMM ---
- ER Visit Summary Date of Service: 12/17/18 Chief Complaint: Dental pain History of Present Illness: The patient is a 33 F presenting with dental pain. Patient has pain right lower molar. She remembers cracking her tooth on a piece of candy. When she tries to drink cold water she has significant pain. Pain radiates to her right ear. Patient was seen in the ED earlier today for right ear pain. She was advised to take ibuprofen and Tylenol. She states this is not improving her pain. She called multiple dentists and is unable to get in until Monday. Denies fever or other complaints. Physical Examination: Vitals are stable. Patient is afebrile. Alert no acute distress. HEENT exam right lower molar fracture. No sublingual edema. No fluctuance. TM normal bilaterally. Neck is supple. Lungs are clear and equal bilaterally. Heart is regular rate and rhythm. Extremities are unremarkable. Skin is warm and dry. Remainder of exam is unremarkable. Emergency Department Course and Treatment: Cavit was applied to right lower molar with some improvement in pain. She is given a short course of [place]. Advised to follow-up with dentist. Advised return to ED for worsening complaints. Disposition: Discharge home Impression: Odontalgia, fractured tooth This note was generated with [employer] dictation software. It may contain incorrect words, spelling, and punctuation that were not noted in review of the chart prior to signing ED Disposition - Plan for ED Patient: Instructions: ED Fx Tooth Prescriptions: Hydrocodone Bitart/Apap 5-325 [[place] 5MG-325MG] 1 tablet PO Q6H PRN PRN 3 Days #10 tablet PRN Reason: Pain Referrals: Alvaro Gonzalez MD [Primary Care Provider] -
--- NOTE | 2018-12-17 11:54 | ED.DCSUM_ITS ---
- ER Visit Summary Date of Service: 12/17/18 Chief Complaint: Dental pain History of Present Illness: The patient is a 33 F presenting with dental pain. Patient has pain right lower molar. She remembers cracking her tooth on a piece of candy. When she tries to drink cold water she has significant pain. Pain radiates to her right ear. Patient was seen in the ED earlier today for right ear pain. She was advised to take ibuprofen and Tylenol. She states this is not improving her pain. She called multiple dentists and is unable to get in until Monday. Denies fever or other complaints. Physical Examination: Vitals are stable. Patient is afebrile. Alert no acute distress. HEENT exam right lower molar fracture. No sublingual edema. No fluctuance. TM normal bilaterally. Neck is supple. Lungs are clear and equal bilaterally. Heart is regular rate and rhythm. Extremities are unremarkable. Skin is warm and dry. Remainder of exam is unremarkable. Emergency Department Course and Treatment: Cavit was applied to right lower mo lar with some improvement in pain. She is given a short course of [place]. Advised to follow-up with dentist. Advised return to ED for worsening complaints. Disposition: Discharge home Impression: Odontalgia, fractured tooth This note was generated with [employer] dictation software. It may contain incorrect words, spelling, and punctuation that were not noted in review of the chart prior to signing ED Disposition - Plan for ED Patient: Instructions: ED Fx Tooth Prescriptions: Hydrocodone Bitart/Apap 5-325 [[place] 5MG-325MG] 1 tablet PO Q6H PRN PRN 3 Days #10 tablet PRN Reason: Pain Referrals: Alvaro Gonzalez MD [Primary Care Provider] -
[2018-12-17] MEDS: HYDROcodone Bitartrate/Apap 5/325 Tablet PO (11:57)
[2018-12-17 12:13] VITALS: RESP 18
== END 2018-12-17 12:14 | disposition home or self-care (01) ==
LOC: ED 11:57
PROVIDERS: Emergency Provider Emergency Medicine; Family Provider Internal Medicine; PCP Internal Medicine
DX: K08.89 Other specified disorders of teeth and supporting structures (principal); S02.5XXA Fracture of tooth (traumatic), initial encounter for closed fracture; X58.XXXA Exposure to other specified factors, initial encounter; Y93.9 Activity, unspecified; Y92.89 Other specified places as the place of occurrence of the external cause; Y99.8 Other external cause status; Z85.3 Personal history of malignant neoplasm of breast
CPT/HCPCS: 99283

== ENCOUNTER 2019-01-28 15:39 | Emergency (ER) | payer OTHER, SELFPAY ==
[2019-01-28 15:40] VITALS: BP 132/91; PULSE 99; RESP 18; TEMP 36.8; O2SAT 98; BMI 47.8
--- NOTE | 2019-01-28 16:36 | RAD_ITS ---
STUDY: X-RAY - LEFT KNEE REASON FOR EXAM: Female, 33 years old. Pain. Fall. TECHNIQUE: 4 view(s) of the knee. COMPARISON: None. FINDINGS: Normal visualized distal femur. Normal visualized proximal tibia and fibula. Normal proximal tibiofibular articulation. There is no demonstrated fracture. Normal medial femorotibial compartment. Normal lateral femorotibial compartment. Normal patellofemoral articulation. The soft tissue structures are unremarkable. RAD/Knee 4 or More Views IMPRESSION: Normal x-ray examination of the knee. Electronically Signed: Antonio Carey MD at 16:58 EDT , Service support ,
--- NOTE | 2019-01-28 16:58 | ED.VISSUMM ---
- ER Visit Summary Date of Service: 01/28/19 Chief Complaint: Left knee pain and rash History of Present Illness: The patient is a 33 F who presents with left knee pain and a rash that began 2 days ago. Patient states she fell off of a lawnmower and injured her left knee. Patient states she has some stabbing pain in her left knee. Patient states pain is worse with weightbearing. Patient states the pain improves with ambulation. Patient admits to some tingling in her toes. Patient also admits to a generalized rash that is pruritic and burning. Patient has been using vxvz-hcd-vqbwgcv calamine lotion with minimal relief. Patient does state that she feels like her tongue is swelling. Patient denies any difficulty breathing. Physical Examination: Vital signs are stable. Patient is afebrile. Patient is in no acute distress. Oral mucosa is pink and moist. Neck is supple. Trachea is midline. Skin is warm dry. There is a patchy erythematous rash with linear vesicles. There is some mild crusting. There is no active drainage. Musculoskeletal exam reveals tenderness over the left knee. There is some ecchymosis over the anterior aspect of the knee and proximal tibia. There is no bony crepitance or step-off. Range of motion was limited in all motion secondary to pain. Extensor mechanism is intact. There is no appreciable laxity however the patient was guarding on exam. There is also some mild tenderness over the left ankle. There is no deformity. There is good range of motion of the ankle. Test Results: X-rays of the left knee were obtained. There is no acute fracture. Emergency Department Course and Treatment: Patient was given a prescription for prednisone. Patient was instructed to use ice to the area. Patient was instructed to follow-up with her primary care physician in 5 to 7 days. Patient was instructed to take ovlu-ocm-iiepnni Tylenol or ibuprofen as needed for pain. Patient understood and was agreeable with the plan. All questions were answered. Disposition: Discharge home Impression: 1. Left knee sprain 2. Rhus dermatitis This note was generated with [employer] software. It may contain incorrect words, spelling, and punctuation that were not noted in review of the chart prior to signing ED Disposition - Plan for ED Patient: Disposition: Home or Assisted Living Diagnosis: Left knee sprain, Rhus dermatitis Instructions: ED Sprain Knee, ED Dermatitis Poison Luisa Prescriptions: predniSONE tablet 60 mg PO DAILY #15 tab Referrals: Alvaro Gonzalez MD [STAFF PHYSICIAN] - 5-7 Days
--- NOTE | 2019-01-28 17:08 | ED.DCSUM_ITS ---
- ER Visit Summary Date of Service: 01/28/19 Chief Complaint: Left knee pain and rash History of Present Illness: The patient is a 33 F who presents with left knee pain and a rash that began 2 days ago. Patient states she fell off of a lawnmower and injured her left knee. Patient states she has some stabbing pain in her left knee. Patient states pain is worse with weightbearing. Patient states the pain improves with ambulation. Patient admits to some tingling in her toes. Patient also admits to a generalized rash that is pruritic and burning. Patient has been using tjlv-mwu-qsyktya calamine lotion with minimal relief. Patient does state that she feels like her tongue is swelling. Patient denies any difficulty breathing. Physical Examination: Vital signs are stable. Patient is afebrile. Patient is in no acute distress. Oral mucosa is pink and moist. Neck is supple. Trachea is midline. Skin is warm dry. There is a patchy erythematous rash with linear vesicles. There is some mild crusting. There is no active drainage. Musculoskeletal exam reveals tenderness over the left knee. There is some ecchymosis over the anterior aspect of the knee and proximal tibia. There is no bony crepitance or step-off. Range of motion was limited in all motion secondar y to pain. Extensor mechanism is intact. There is no appreciable laxity however the patient was guarding on exam. There is also some mild tenderness over the left ankle. There is no deformity. There is good range of motion of the ankle. Test Results: X-rays of the left knee were obtained. There is no acute fracture. Emergency Department Course and Treatment: Patient was given a prescription for prednisone. Patient was instructed to use ice to the area. Patient was instructed to follow-up with her primary care physician in 5 to 7 days. Patient was instructed to take fvyp-qwf-smldksm Tylenol or ibuprofen as needed for pain. Patient understood and was agreeable with the plan. All questions were answered. Disposition: Discharge home Impression: 1. Left knee sprain 2. Rhus dermatitis This note was generated with [employer] software. It may contain incorrect words, spelling, and punctuation that were not noted in review of the chart prior to signing ED Disposition - Plan for ED Patient: Disposition: Home or Assisted Living Diagnosis: Left knee sprain, Rhus dermatitis Instructions: ED Sprain Knee, ED Dermatitis Poison Luisa Prescriptions: predniSONE tablet 60 mg PO DAILY #15 tab Referrals: Alvaro Gonzalez MD [STAFF PHYSICIAN] - 5-7 Days
[2019-01-28 17:17] VITALS: PULSE 92; RESP 17; O2SAT 99
== END 2019-01-28 17:18 | disposition home or self-care (01) ==
PROVIDERS: Emergency Provider Emergency Medicine; Family Provider Nurse Practitioner Family; PCP Nurse Practitioner Family
DX: S83.92XA Sprain of unspecified site of left knee, initial encounter (principal); V98.8XXA Other specified transport accidents, initial encounter; Y93.H2 Activity, gardening and landscaping; Y92.007 Garden or yard of unspecified non-institutional (private) residence as the place of occurrence of the external cause; Y99.9 Unspecified external cause status; L23.7 Allergic contact dermatitis due to plants, except food; E66.9 Obesity, unspecified; I10 Essential (primary) hypertension; Z85.3 Personal history of malignant neoplasm of breast
CPT/HCPCS: 73564; 99282

== ENCOUNTER → 2019-03-15 16:45 | Outpatient (CLI) | payer OTHER, SELFPAY ==
--- NOTE | 2019-03-15 17:30 | MRI_ITS ---
STUDY: MRI LUMBAR SPINE WITHOUT CONTRAST REASON FOR EXAM: Female, 33 years old. Low back pain, history of breast cancer TECHNIQUE: Standardized fat and water weighted pulse sequences were obtained in the sagittal and axial planes. COMPARISON: X-ray 08/17/2018 FINDINGS: T12-L1: Normal endplates. Normal disc height, hydration and morphology. Normal bilateral facet joints. Normal central canal and bilateral lateral recesses. Normal bilateral intervertebral neural foramina. Normal lumbar lordosis. There is no substantial scoliosis. Normal conus medullaris that terminates at the T12 no marrow replacing lesions to suggest metastatic disease. L1-2: Normal endplates. Normal disc height, hydration and morphology. Normal bilateral facet joints. Normal central canal and bilateral lateral recesses. Normal bilateral intervertebral neural foramina. L2-3: Normal endplates. Normal disc height, hydration and morphology. Normal bilateral facet joints. Normal central canal and bilateral lateral recesses. Normal bilateral intervertebral neural foramina. L3-4: Normal endplates. Normal disc height, hydration and morphology. Normal bilateral facet joints. Normal central canal and bilateral lateral recesses. Normal bilateral intervertebral neural foramina. L4-5: Mild bilateral facet hypertrophy and moderate ligament flavum hypertrophy. 2 mm retrolisthesis of L4 and L5 with a moderate broad disc protrusion produces moderate spinal stenosis with mild bilateral lateral recess stenosis and mild bilateral neural foraminal stenosis. L5-S1: Normal endplates. Normal disc height, hydration and morphology. Normal bilateral facet joints. Normal central canal and bilateral lateral recesses. Normal bilateral intervertebral neural foramina. Normal visualized sacral ala. Mild friction related edema in the posterior subcutaneous fat. MRI/Spine Lumbar (Routine) IMPRESSION: 1. Focal degenerative disc disease at L4/L5. 2. No MR evidence of metastatic disease. Electronically Signed: Dameon Lui MD at 18:27 EDT Tel , Service support ,
== END ==
PROVIDERS: Family Provider Nurse Practitioner Family; PCP Nurse Practitioner Family; Referring Provider Anesthesiology Pain Medicine; Visit Provider Anesthesiology Pain Medicine
DX: M54.9 Dorsalgia, unspecified (principal); M79.606 Pain in leg, unspecified
CPT/HCPCS: 72148

== ENCOUNTER 2019-04-10 19:09 | Emergency (ER) | payer OTHER, SELFPAY ==
[2019-04-10 19:10] VITALS: BP 147/96; PULSE 99; RESP 18; TEMP 37.1; O2SAT 100; BMI 44.2
--- NOTE | 2019-04-10 19:24 | RAD_ITS ---
STUDY: X-RAY - LEFT TIBIA AND FIBULA REASON FOR EXAM: Female, 33 years old. Posttraumatic pain TECHNIQUE: 2 view(s) of the tibia and fibula were obtained. COMPARISON: None. FINDINGS: Normal visualized tibia. Normal visualized fibula. There is focal soft tissue swelling or hematoma of the posterior mid to upper calf. RAD/Tibia & Fibula 2 Views IMPRESSION: Focal soft tissue swelling or hematoma within the upper calf. No evidence for associated fracture. Electronically Signed: Santana Andino MD at 19:55 EDT , Service support ,
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
[2019-04-10 19:36] VITALS: RESP 18
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
[2019-04-10] MEDS: Ondansetron 4 MG/2 ML Vial IV (19:47)
[2019-04-10] MEDS: morphine 8 MG/ML Syringe 6 MG IV (19:49)
--- NOTE | 2019-04-10 20:38 | DCINST.ED_ITS ---
ED Disposition - Plan for ED Patient: Disposition: Home or Assisted Living Instructions: CONTUSION, Foot, Sprain, Ankle, with X-Ray Referrals: Grant Flynn, MANAGER BALANCE-C [Primary Care Provider] - 1 Week if not improving Additional Instructions: Ice and elevate. To decrease pain and swelling. Tylenol for pain and Motrin for swelling and pain. Crutches and increase weightbearing as tolerated. Follow-up if not improving. Return if a lot worse.
[2019-04-10 21:00] VITALS: BP 137/92; PULSE 78; RESP 16; O2SAT 95
== END 2019-04-10 21:01 | disposition home or self-care (01) ==
PROVIDERS: Emergency Provider Emergency Medicine; Family Provider Nurse Practitioner Family; PCP Nurse Practitioner Family
DX: S80.12XA Contusion of left lower leg, initial encounter (principal); S93.402A Sprain of unspecified ligament of left ankle, initial encounter; V09.20XA Pedestrian injured in traffic accident involving unspecified motor vehicles, initial encounter; Y93.9 Activity, unspecified; Y92.410 Unspecified street and highway as the place of occurrence of the external cause; Y99.8 Other external cause status; Z85.3 Personal history of malignant neoplasm of breast
CPT/HCPCS: 73590; 73630; 96374; 96375; 99284; A4216; J2405

== ENCOUNTER → 2019-06-18 09:20 | Outpatient (CLI) | payer OTHER, SELFPAY ==
[2019-06-18 08:51] VITALS: BMI 44.2
[2019-06-18 12:11] LABS: Hemoglobin 15.7 g/dL (12.0-15.0); Mean Corp Hgb Conc 33.4 g/dL (32-36); Mean Corpuscular Hgb 29.2 pg (27.0-32.0); Mean Corpuscular Volume 87.5 fL (81-99); Mean Platelet Vol. 9.5 fl (6.2-12.0); Platelet Count 363 K/mm3 (150-450); RBC Distribution Width CV 12.4 % (11.6-14.6); RBC Distribution Width SD 39.3 fl (35.1-43.9); Red Blood Count 5.37 M/mm3 (4.2-5.4); White Blood Count 9.5 K/mm3 (4.4-11.0)
[2019-06-18 12:36] LABS: Anion Gap 7 (5-15); BUN 14 mg/dL (7-18); BUN/Creat Ratio 15.7 RATIO (10-20); Chloride 107 mmol/L (98-107); Creatinine, Serum 0.89 mg/dL (0.55-1.02); EST Glomerular Filtration Rate 77 mL/min (>60); Est Glom Filt Rate - Afr Amer 93 mL/min (>60); Glucose 100 mg/dL (74-106); Potassium 3.5 mmol/L (3.5-5.1); Sodium Level 143 mmol/L (136-145); Thyroid Stim Hormone (TSH) 1.83 uIU/mL (0.358-3.74)
[2019-06-21 14:47] LABS: Cholesterol 174 mg/dL (200); High Density Lipoprotein 60 mg/dL; Triglycerides 77 mg/dL; Very Low Density Lipoprotein 15 mg/dL (5-40)
== END ==
PROVIDERS: Family Provider Nurse Practitioner Family; PCP Internal Medicine; Visit Provider Nurse Practitioner Family
DX: I10 Essential (primary) hypertension (principal)
CPT/HCPCS: 36415; 80048; 80061; 84443; 85027

== ENCOUNTER → 2019-07-10 10:39 | Outpatient (CLI) | payer OTHER, SELFPAY ==
[2019-07-08 12:01] VITALS: BMI 44.2
--- NOTE | 2019-07-10 10:43 | US_ITS ---
STUDY: ULTRASOUND BREAST - LEFT REASON FOR EXAM: Female, 33 years old. Status post bilateral mastectomy. Right breast cancer. Left breast wound. TECHNIQUE: Axial and longitudinal images of the LEFT breast were performed with a high resolution ultrasound transducer. # OF IMAGES: 29 COMPARISON: Comparison is made with prior outside mammogram dated September 15, 2015. FINDINGS: LEFT Breast: At the site, there is a vague 1.3 cm x 0.7 cm x 0.2 cm hypoechoic density. This is just deep to the skin. This may represent postoperative change. US/Breast Limited Unilateral IMPRESSION: 1.3 cm x 0.7 cm x 0.2 cm well-defined hyperechoic vague density just deep to the skin. A follow-up in 4 months is recommended. ASSESSMENT CATEGORY: BIRADS Category 3: Probably Benign - Short-Interval Follow-up Suggested. A letter regarding these results will be sent to the patient by the facility within 30 days. Electronically Signed: Eliceo Moore, at 11:20 EST , Service support ,
== END ==
PROVIDERS: Family Provider Nurse Practitioner Family; PCP Nurse Practitioner Family; Referring Provider Internal Medicine; Visit Provider Internal Medicine
DX: N64.4 Mastodynia (principal)
CPT/HCPCS: 76642

== ENCOUNTER 2019-08-14 23:56 | Emergency (ER) | payer OTHER, SELFPAY ==
[2019-07-08 12:01] VITALS: BMI 44.2
[2019-08-14 23:57] VITALS: BP 135/107; BP 164/96; PULSE 116; PULSE 119; RESP 20; RESP 21; TEMP 36.6; O2SAT 97; O2SAT 98; BMI 46.0
[2019-08-15 00:07] VITALS: O2SAT 97
--- NOTE | 2019-08-15 00:09 | RAD_ITS ---
STUDY: X-RAY CHEST REASON FOR EXAM: Female, 33 years old. PATIENT STATES SHE HAS BEEN COUGHING FOR 2 DAYS WITH CONGESTION, TODAY EXPERIENCED SOME CHEST TIGHTNESS, NON RADIATING TECHNIQUE: Single AP portable view of the chest. COMPARISON: None. FINDINGS: The lungs are clear and expanded. There is no demonstrated pleural abnormality. Normal size heart. Normal mediastinum and patricio. Normal visualized pulmonary arteries. Normal visualized aortic arch and descending thoracic aorta. Normal visualized thoracic spine. Normal visualized ribs, clavicles, and shoulders. There is no demonstrated abnormality of the visualized soft tissue structures of the upper abdomen. RAD/Chest PA and Lateral IMPRESSION: Normal x-ray examination of the chest. Electronically Signed: Tracie Cruz, at 1:37 EST Tel , Service support ,
--- NOTE | 2019-08-15 00:09 | EKG12_ITS ---
Test Reason : CHEST TIGHTNESS Blood Pressure : / mmHG Vent. Rate : 115 BPM Atrial Rate : 115 BPM P-R Int : 132 ms QRS Dur : 074 ms QT Int : 334 ms P-R-T Axes : 034 015 026 degrees QTc Int : 462 ms Sinus tachycardia Otherwise normal ECG Confirmed by SENDY YOON, JYOTHI ([id number]), script editor CHARLES GARIBAY ([id number]) on 08/16/2019 10:33:13 AM Referred By: ELEN Confirmed By:SUMAN KABA MD
--- NOTE | 2019-08-15 00:18 | ED.DCSUM_ITS ---
History of Present Illness Chief Complaint: Cough Informant: Patient Onset: Days Context: Gradual Onset Timing: Continuous Current Severity: Moderate Maximum Severity: Moderate Narrative: The patient is a 33-year-old female with history of breast cancer that is been in remission for 2 years presents to the emergency department with cough, shortness of breath, and chest pain. States for the past 2 days, she has had upper respiratory illness. She said mild nasal drainage with cough. She states tonight, she woke with tightness across her chest and felt like she cannot catch her breath. She does admit to low-grade fevers and chills. She denies orthopnea, weight gain, or other systemic symptoms. She denies any history of pulmonary embolus. Prior similar symptoms: No Recent Illness/Hospitalization: No Past Medical History - Allergies and Home Meds Allergies/Adverse Reactions: Allergies corn Allergy (Severe, Verified 04/10/19 19:10) swelling Beef Containing Products Allergy (Mild, Verified 04/10/19 19:10) other upset stomach azithromycin Allergy (Verified 04/10/19 19:10) Anaphylaxis chlorhexidine [From Hibiclens] Allergy (Verified 04/10/19 19:10) Hives iodine Allergy (Verified 04/10/19 19:10) Hives povidone-iodine [From Betadine] Allergy (Verified 04/10/19 19:10) Hives shellfish derived Allergy (Verified 04/10/19 19:10) Hives soap [From Betadine] Allergy (Verified 04/10/19 19:10) Hives sumatriptan Allergy (Verified 04/10/19 19:10) Rash Primary Care Physician: Alvaro Gonzalez MD [STAFF PHYSICIAN] - Prior records reviewed: Yes Past Medical History: - - Breast cancer in remission Smoking Status: Never smoker Review of Systems General: Denies: Chills, Fever, Sweats Eyes: Denies: Visual changes - bilaterally, Diplopia ENT: Reports: -. Denies: Rhinorrhea, Sore throat Cardiovascular: Reports: Chest pain. Denies: Palpitations Respiratory: Reports: Dyspnea, Cough. Denies: Dyspnea on exertion Gastrointestinal: Denies: Abdominal pain, Nausea, Vomiting, Diarrhea, Melena, Hematochezia Genitourinary: Denies: Dysuria, Hematuria, Frequency Musculoskeletal: Denies: Back pain, Extremity Pain Skin: Denies: Rash, Wounds Neurological: Denies: Headache, Weakness, Numbness Physical Exam Vital Signs/Narrative: Vital Signs Temp Pulse Resp BP Pulse Ox 08/14/19 23:57 98 F 116 H 21 H 135/107 H 98 Inital Vital Signs reviewed: Yes General: Well nourished, Well developed, No Acute Distress Head: Normocephalic, Atraumatic Eyes: Perrl, EOMI ENT: Moist mucous membranes, No rhinorrhea Neck: Supple, Nontender Cardiovascular: Regular rate, Regular rhythm, No murmurs Respiratory: No distress, Chest nontender, Wheezing, Decreased Air Movement Abdomen: Soft, Nontender, Nondistended, Normal bowel sounds Back: Nontender, Normal Inspection Extremities: Nontender, No edema Skin: Normal color, No rash Neurological: Alert, Oriented x3, Cranial nerves II-XII grossly intact, Normal Strength, Normal Sensation Psychological: Normal affect, Normal Mood Diagnostic/Tx/Re-eval Chest X-Ray - ED: 2 View, Normal, Heart, Lungs, Mediastinum Clinical Impression(s) from Imaging Studies Chest X-Ray 08/15/19 00:09 IMPRESSION: Normal x-ray examination of the chest. Electronically Signed: Tracie Cruz, at 1:37 EST Tel , Service support , Abnormal Lab Results 08/15/19 08/15/19 00:20 00:20 WBC 6.8 RBC 4.69 Hgb 14.3 Hct 40.6 MCV 86.6 MCH 30.5 MCHC 35.2 RDW Std Deviation 39.7 RDW Coeff of Adwoa 12.9 Plt Count 242 MPV 8.8 Immature Gran % (Auto) 0.600 Neut % (Auto) 48.4 Lymph % (Auto) 33.9 [place] % (Auto) 10.8 H Eos % (Auto) 5.6 H Baso % (Auto) 0.7 Absolute Neuts (auto) 3.3 Absolute Lymphs (auto) 2.30 Nucleated RBC % 0 Sodium 140 Potassium 3.1 L Chloride 105 Carbon Dioxide 29.0 Anion Gap 6 BUN 14 Creatinine 0.92 Estim Creat Clear Calc 71.95 Est GFR (MDRD) Af Amer 90 Est GFR (MDRD) Non-Af 74 BUN/Creatinine Ratio 15.2 Glucose 123 H Calcium 8.8 Troponin I < 0.015 - Rhythm Strip Rhythm Strip: Sinus Rhythm Rate: 90 Ectopy: None - EKG Initial EKG Interpretation: No Acute Injury Pattern, Sinus Tachycardia Prior: Unchanged - Medical Decision Making Patient presents with cough and shortness of breath. She does have wheezing in all lung reyna. She was given nebulized breathing treatments. She began to have diffuse cramping in her hands and legs. She states that she also gets headache reaction to Solu-Medrol, so she was given Compazine and Benadryl. I am not sure if this was akathisia from the Compazine, but then when her labs came back she was hypokalemic at 3.1. My suspicion is that the albuterol likely drove the extracellular potassium back into the cells and she was having cramping from symptomatic hypokalemia. She was given oral potassium and Ativan. She had total resolution of her symptoms. Screening labs were unremarkable. Cardiac enzymes were negative. X-ray shows no evidence of volume overload or focal infiltrative process. With the patient's wheezing, productive sputum, and chills I am going to treat her as an infectious bronchitis. She has no hypoxia. She is resting comfortably. At this point, I do feel that she is safe for outpatient therapy. She was counseled on concerning symptoms and reasons to return. She will be discharged home. Impression 1. Hypokalemia 2. Acute infectious bronchitis ED Disposition - Plan for ED Patient: Instructions: BRONCHITIS, Antiobiotic Treatment (Adult) Prescriptions: Amox/Clavulanate Tablet [Augmentin Tablet] 875 mg PO Q12H #20 tab Prescription Printed Referrals: Alvaro Gonzalez MD [STAFF PHYSICIAN] -
[2019-08-15 00:27] VITALS: PULSE 99; RESP 18
[2019-08-15 00:28] LABS: Absolute Neutrophil Count 3.3 X10^3/uL (2.0-7.7); Basophil# 0.05 X10^3/uL; Basophil% 0.7 % (0-1); Eosinophil# 0.38 X10^3/uL; Eosinophils% 5.6 % (0-5); Hematocrit 40.6 % (37-47); Hemoglobin 14.3 g/dL (12.0-15.0); Lymphocyte % 33.9 % (19-41); Mean Corp Hgb Conc 35.2 g/dL (32-36); Mean Corpuscular Hgb 30.5 pg (27.0-32.0); Mean Corpuscular Volume 86.6 fL (81-99); Mean Platelet Vol. 8.8 fl (6.2-12.0); Monocyte# 0.73 X10^3/uL; Monocyte% 10.8 % (0-10); NRBC Flagged by Analyzer 0 % (0-5); Neutrophil # 3.28 X10^3/uL (2.7-7.7); Neutrophil % 48.4 % (47-70); Platelet Count 242 K/mm3 (150-450); RBC Distribution Width CV 12.9 % (11.6-14.6); RBC Distribution Width SD 39.7 fl (35.1-43.9); Red Blood Count 4.69 M/mm3 (4.2-5.4); White Blood Count 6.8 K/mm3 (4.4-11.0)
[2019-08-15] MEDS: Ipratropium/Albuterol Sulfate 3 ML AMPUL.NEB INHALATION (00:28)
[2019-08-15] MEDS: Albuterol 2.5 MG/3 ML VIAL.NEB. INHALATION (00:28)
[2019-08-15] MEDS: 0.9% Normal Saline 1,000 ML 999 ML IV (00:32)
[2019-08-15] MEDS: DiphenhydrAMINE 50 MG/ML Syringe IV (00:33)
[2019-08-15] MEDS: MethylPREDNISolone 125 MG/2 ML Vial IV (00:33)
[2019-08-15] MEDS: proCHLORPERazine 10 MG/2 ML Vial 5 MG IV (00:33)
[2019-08-15 00:46] LABS: Anion Gap 6 (5-15); BUN 14 mg/dL (7-18); BUN/Creat Ratio 15.2 RATIO (10-20); Calcium,Total 8.8 mg/dL (8.5-10.1); Chloride 105 mmol/L (98-107); Creatinine, Serum 0.92 mg/dL (0.55-1.02); EST Glomerular Filtration Rate 74 mL/min (>60); Est Glom Filt Rate - Afr Amer 90 mL/min (>60); Estimated Creatinine Clearance 71.95 ml/min; Glucose 123 mg/dL (74-106); Potassium 3.1 mmol/L (3.5-5.1); Sodium Level 140 mmol/L (136-145)
[2019-08-15] MEDS: LORazepam 2 MG/ML Syringe 1 MG IV (00:50)
[2019-08-15] MEDS: Amox/Clavulanate 875 MG Tablet PO (01:51)
[2019-08-15 01:59] VITALS: BP 112/65; PULSE 112; RESP 18; O2SAT 96
== END 2019-08-15 02:00 | disposition home or self-care (01) ==
LOC: ED 08-15 00:27
PROVIDERS: Emergency Provider Emergency Medicine; Family Provider Nurse Practitioner Family; PCP Nurse Practitioner Family
DX: E87.6 Hypokalemia (principal); J40 Bronchitis, not specified as acute or chronic; Z85.3 Personal history of malignant neoplasm of breast
CPT/HCPCS: 71046; 80048; 84484; 85025; 87804; 93005; 94640; 96361; 96374; 96375; 99285; J7030; A4216

== ENCOUNTER 2019-08-18 22:40 | Emergency (ER) | payer OTHER, SELFPAY ==
[2019-08-18 22:41] VITALS: BP 139/89; PULSE 105; RESP 20; TEMP 36.8; O2SAT 98; BMI 44.2
--- NOTE | 2019-08-19 00:41 | CT_ITS ---
HISTORY: SUDDEN ONSET LEFT FLANK PAIN RADIATING DOWN INTO GROIN, HX HYSTERECTOMY, BREAST CA WITH MASECTOMY ADDITIONAL HISTORY: None provided. TECHNIQUE: CT images were obtained of the abdomen and pelvis without IV contrast. Enteric contrast was not given. Number of images including paperwork: [id number]. A radiation dose optimization technique was used for this scan. COMPARISON: 10/14/2017 FINDINGS: Evaluation of the abdominopelvic organs is limited in the absence of contrast. LOWER THORAX: Bilateral breast prostheses. Linear basilar subsegmental atelectasis versus scarring. Small amount of pericardial fluid. LIVER: No concerning focal lesion. Enlarged, right lobe approximately 19 cm craniocaudal. GALLBLADDER: No radiopaque calculi. BILE DUCTS: No significant biliary dilatation. SPLEEN: Unremarkable. PANCREAS: Unremarkable. ADRENAL GLANDS: Unremarkable. KIDNEYS/URETERS: Unremarkable right kidney. 2 mm nonobstructing left renal calculus. Mild left hydroureteronephrosis secondary to a 4 mm calculus in the distal ureter a few centimeters proximal to the ureterovesical junction. BOWEL: No bowel obstruction. No significant bowel wall thickening. No localized inflammation. APPENDIX: No evidence of appendicitis. FREE FLUID: No significant free fluid. FREE AIR: None. LYMPH NODES: No pathologic appearing adenopathy. PERITONEUM, RETROPERITONEUM AND MESENTERY: Otherwise unremarkable. VASCULATURE: Unremarkable as imaged. ABDOMINAL WALL: Unremarkable. PELVIS: Unremarkable bladder. OSSEOUS AND SOFT TISSUE STRUCTURES: No acute skeletal findings. CT/Abdomen/Pelvis without Cont IMPRESSION: 1. Obstructing left distal ureteral calculus with mild hydronephrosis. 2. Nonobstructing left renal calculus. Individualized dose optimization techniques were used for this CT. at 0154 Reported and signed by: Elena Bhatt MD Electronically Signed: Elena Bhatt MD at 1:54 EST Tel , Service support ,
[2019-08-19] MEDS: 0.9% Normal Saline 1,000 ML 1000 ML IV (00:51)
[2019-08-19] MEDS: Morphine 4 MG/ML Syringe IV (00:52)
[2019-08-19] MEDS: Ketorolac 30 MG/ML Syringe IV (00:52)
[2019-08-19] MEDS: Ondansetron 4 MG/2 ML Vial IV (00:52)
--- NOTE | 2019-08-19 01:05 | ED.VISSUMM ---
- ER Visit Summary Date of Service: 08/19/19 Chief Complaint: Flank pain History of Present Illness: The patient is a 33 F with left flank pain that started in the evening. The pain wraps around to her lower back and also her left inguinal region. She never had this before. It came on suddenly. The pain is severe. History of kidney infection, but this feels different. History of breast cancer in remission. 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 Patient had a history of oophorectomy bilaterally and hysterectomy. Physical Examination: Afebrile and vital signs unremarkable except for tachycardia. Patient has left CVA and left flank tenderness. Skin normal. Otherwise exam is normal. Test Results: Labs, urinalysis, CT pending. Emergency Department Course and Treatment: Patient was treated with fluids, morphine, Zofran, Toradol. Will check labs, urinalysis, and CT. I suspect she has a kidney stone. The oncoming physician will check the results and treat accordingly. Treatment Plan: As above Disposition: Pending evaluation Impression: 1. Left flank pain This note was generated with Phybridge dictation software. It may contain incorrect words, spelling, and punctuation that were not noted in review of the chart prior to signing ED Disposition - Plan for ED Patient: Referrals: Grant Flynn NP-C [Primary Care Provider] -
[2019-08-19 01:09] LABS: Absolute Lymphocyte Count 3.76 X10^3/uL (0.83-4.51); Absolute Neutrophil Count 5.4 X10^3/uL (2.0-7.7); Basophil# 0.04 X10^3/uL; Basophil% 0.4 % (0-1); Eosinophil# 0.37 X10^3/uL; Eosinophils% 3.6 % (0-5); Hematocrit 43.1 % (37-47); Hemoglobin 14.9 g/dL (12.0-15.0); Lymphocyte # 3.76 X10^3/ul (4.0); Lymphocyte % 36.8 % (19-41); Mean Corp Hgb Conc 34.6 g/dL (32-36); Mean Corpuscular Hgb 29.6 pg (27.0-32.0); Mean Corpuscular Volume 85.5 fL (81-99); Mean Platelet Vol. 8.5 fl (6.2-12.0); Monocyte# 0.65 X10^3/uL; Monocyte% 6.4 % (0-10); NRBC Flagged by Analyzer 0 % (0-5); Neutrophil # 5.35 X10^3/uL (2.7-7.7); Neutrophil % 52.2 % (47-70); Platelet Count 308 K/mm3 (150-450); RBC Distribution Width CV 12.6 % (11.6-14.6); RBC Distribution Width SD 38.4 fl (35.1-43.9); Red Blood Count 5.04 M/mm3 (4.2-5.4); White Blood Count 10.2 K/mm3 (4.4-11.0)
[2019-08-19 01:16] LABS: Anion Gap 6 (5-15); BUN 16 mg/dL (7-18); BUN/Creat Ratio 16.7 RATIO (10-20); Calcium,Total 9.7 mg/dL (8.5-10.1); Chloride 104 mmol/L (98-107); Creatinine, Serum 0.96 mg/dL (0.55-1.02); EST Glomerular Filtration Rate 71 mL/min (>60); Est Glom Filt Rate - Afr Amer 86 mL/min (>60); Estimated Creatinine Clearance 68.95 ml/min; Glucose 98 mg/dL (74-106); Sodium Level 140 mmol/L (136-145)
[2019-08-19] MEDS: HYDROmorphone 1 MG/ML Syringe IV ×2 (01:19→02:11)
[2019-08-19 02:05] VITALS: BP 143/106; PULSE 101; RESP 18; O2SAT 92
[2019-08-19 02:09] LABS: Bacteria 0 SEEN /hpf (None Seen); Mucous, Urine 0 SEEN /hpf (<or=2+); White Blood Cells 0 SEEN /hpf (0-5)
[2019-08-19 02:13] LABS: Color, Urine Red (Yellow); Glucose, Dipstick Normal (Normal); Ketone-Dipstick Negative (Negative); Leukocyte Esterase-Dipstick Negative /ul (Negative); Nitrite-Dipstick Positive (Negative); Occult Blood-Urine 250 /ul (Negative); Protein-Dipstick 30 mg/dl (Negative); Urine Clarity Cloudy (Clear); Urine Urobilinogen 8 mg/dl (Normal)
[2019-08-19 02:18] LABS: Urine Bilirubin Dipstick 6 mg/dL (Negative)
[2019-08-19 02:20] LABS: Red Blood Cells-Urine > 100 SEEN /hpf (0-5); Squamous Epithelial Cells - UA 5-10 SEEN /hpf (5-10)
--- NOTE | 2019-08-19 02:37 | ED.VISSUMM ---
- ER Visit Summary Date of Service: 08/19/19 Chief Complaint: [] History of Present Illness: The patient is a 33 F [] Physical Examination: [] Test Results: [] Emergency Department Course and Treatment: [] Treatment Plan: [] Disposition: [] Impression: [] This note was generated with Terranova dictation software. It may contain incorrect words, spelling, and punctuation that were not noted in review of the chart prior to signing ED Disposition - Plan for ED Patient: Disposition: Psychiatric Hospital or Unit Diagnosis: Kidney stone on left side Instructions: KIDNEY STONE w/ Colic Prescriptions: Oxycodone HCl/Acetaminophen [Percocet 5/325] 1 - 2 tab PO Q6H PRN PRN 3 Days #12 tab PRN Reason: Pain Prescription Printed proMETHazine tablet [Phenergan] 25 mg PO Q6H PRN PRN #10 tab PRN Reason: Nausea Prescription Printed Referrals: Mannie Kaplan MD [STAFF PHYSICIAN] -
[2019-08-19] MEDS: HYDROmorphone 0.5 MG/0.5 ML SYRINGE IV (03:34)
== END 2019-08-19 03:35 | disposition home or self-care (01) ==
PROVIDERS: Emergency Medicine; Emergency Provider Emergency Medicine; Family Provider Nurse Practitioner Family; PCP Nurse Practitioner Family
DX: N20.0 Calculus of kidney (principal); Z87.440 Personal history of urinary (tract) infections; Z85.3 Personal history of malignant neoplasm of breast
CPT/HCPCS: 51702; 74176; 80048; 81001; 85025; 96361; 96374; 96375; 96376; 99283; 99284; J7030; A4216; J2405

== ENCOUNTER 2019-08-19 15:12 | Emergency (ER) | payer OTHER, SELFPAY ==
[2019-08-18 22:41] VITALS: BMI 44.2
[2019-08-19 15:13] VITALS: BP 148/99; PULSE 93; PULSE 94; RESP 16; RESP 17; TEMP 36.4; O2SAT 95; O2SAT 97; BMI 44.2
--- NOTE | 2019-08-19 15:37 | ED.DCSUM_ITS ---
History of Present Illness Chief Complaint: Complaint Informant: Patient Onset: Yesterday Context: Gradual Onset Timing: Continuous, Waxes and wanes Narrative: She is a 33-year-old female who was diagnosed about 14 hours ago with 4 mm left ureterolithiasis presenting with inability to urinate. Patient states that she was discharged home she has not been able to pee. She feels that she needs to. She continues to have intense aching pain in her left flank as well as intermittent sharp pain that radiates into her left groin. She does have associated nausea but no vomiting. She denies any history of urinary retention. She denies any associated fever or chills. She denies any upper abdominal pain. She called her PCP who instructed her to come to the emergency room. Past Medical History - Allergies and Home Meds Allergies/Adverse Reactions: Allergies corn Allergy (Severe, Verified 08/19/19 15:13) swelling Beef Containing Products Allergy (Mild, Verified 08/19/19 15:13) other upset stomach azithromycin Allergy (Verified 08/19/19 15:13) Anaphylaxis chlorhexidine [From Hibiclens] Allergy (Verified 08/19/19 15:13) Hives iodine Allergy (Verified 08/19/19 15:13) Hives povidone-iodine [From Betadine] Allergy (Verified 08/19/19 15:13) Hives shellfish derived Allergy (Verified 08/19/19 15:13) Hives soap [From Betadine] Allergy (Verified 08/19/19 15:13) Hives sumatriptan Allergy (Verified 08/19/19 15:13) Rash Primary Care Physician: Grant Flynn, FAIZA-C [Primary Care Provider] - Past Medical History: - - History of breast cancer, migraines, back pain Surgical History: - - Hysterectomy, bilateral mastectomy, breast reconstruction, right knee surgery Smoking Status: Never smoker Review of Systems General: Denies: Chills, Fever, Sweats Eyes: Denies: Visual changes - bilaterally, Diplopia ENT: Denies: Rhinorrhea, Sore throat Cardiovascular: Denies: Chest pain, Palpitations Respiratory: Denies: Dyspnea, Cough, Dyspnea on exertion Gastrointestinal: Reports: Abdominal pain, Nausea. Denies: Vomiting, Diarrhea, Melena, Hematochezia Genitourinary: Reports: - - Inability to urinate. Denies: Dysuria, Hematuria, Frequency Musculoskeletal: Denies: Back pain, Extremity Pain Skin: Denies: Rash, Wounds Neurological: Denies: Headache, Weakness, Numbness Physical Exam Vital Signs/Narrative: Vital Signs Temp Pulse Resp BP Pulse Ox 08/19/19 15:13 97.6 F L 93 17 148/99 H 95 Inital Vital Signs reviewed: Yes General: Well nourished, Well developed, No Acute Distress Head: Normocephalic, Atraumatic Eyes: Perrl, EOMI ENT: Moist mucous membranes, No rhinorrhea Neck: Supple, Nontender Cardiovascular: Regular rate, Regular rhythm, No murmurs Respiratory: No distress, CTA bilaterally, Chest nontender Abdomen: Soft, Nondistended, Normal bowel sounds, Tender - suprapubic and LLQ. Negative for: Guarding Back: Nontender, Normal Inspection. Negative for: CVA tenderness, Spinal tenderness Extremities: Nontender, No edema Skin: Normal color, No rash Neurological: Alert, Oriented x3, Cranial nerves II-XII grossly intact, Normal Strength, Normal Sensation Psychological: Normal affect, Normal Mood Diagnostic/Tx/Re-eval Laboratory Data 08/19/19 08/19/19 08/19/19 15:45 15:45 16:10 WBC 10.2 RBC 4.90 Hgb 14.5 Hct 43.1 MCV 88.0 MCH 29.6 MCHC 33.6 RDW Std Deviation 40.0 RDW Coeff of Adwoa 12.5 Plt Count 297 MPV 8.9 Immature Gran % (Auto) 0.500 Neut % (Auto) 56.6 Lymph % (Auto) 32.8 [place] % (Auto) 6.2 Eos % (Auto) 3.5 Baso % (Auto) 0.4 Absolute Neuts (auto) 5.8 Absolute Lymphs (auto) 3.34 Nucleated RBC % 0 Sodium 143 Potassium 3.1 L Chloride 105 Carbon Dioxide 32.0 Anion Gap 6 BUN 19 H Creatinine 0.93 Estim Creat Clear Calc 71.17 Est GFR (MDRD) Af Amer 89 Est GFR (MDRD) Non-Af 74 BUN/Creatinine Ratio 20.5 H Glucose 101 Calcium 9.3 Urine Color Yellow Urine Clarity Sl. Cloudy Urine pH 6.5 Ur Specific [place] 1.015 Urine Protein Negative Urine Glucose (UA) Normal Urine Ketones Negative Urine Occult Blood 10 H Urine Nitrite Negative Urine Bilirubin Negative Urine Urobilinogen Normal Ur Leukocyte Esterase Negative Urine RBC 0-5 SEEN Urine WBC 0 SEEN Ur Squamous Epith Cells 0 SEEN Urine Bacteria 0 SEEN Urine Mucus 0 SEEN - Medical Decision Making Evaluated for inability urinate for the last 12 hours. She was diagnosed with ureterolithiasis last night. She has been on pain medication at home. She states she is having worsening pain. She has been able to tolerate her medications. Her PCP told her she should come to the emergency room to be evaluated. Patient had 400 cc of urine in her bladder. Encarnacion catheter was placed. She had normal urine output while she was in the emergency room. She is given a total 2 L of fluids. Creatinine is normal. Patient does not have any signs of infection in her urine. Encarnacion catheter is removed in the emergency room. Patient is able to void after this. She will be discharged home to follow-up with her PCP and urology. Patient is counseled on signs and symptoms requiring return to the emergency room. Patient verbalizes agreement and understand this plan. Patient discharged home in stable and improved condition. ED Disposition - Plan for ED Patient: Disposition: Home or Assisted Living Diagnosis: Urinary retention, Ureterolithiasis Instructions: URINARY RETENTION, Female Referrals: Grant Flynn NP-Chu [Primary Care Provider] - Sara Vigil MD [STAFF PHYSICIAN] - Additional Instructions: Drink plenty of fluids. If you are not able to urinate after 6 hours or have worsening pain and sensation that you need to urinate please return to the emergency room.
[2019-08-19] MEDS: HYDROmorphone 1 MG/ML Syringe IV (15:44)
[2019-08-19] MEDS: Ondansetron 4 MG/2 ML Vial IV (15:44)
[2019-08-19] MEDS: 0.9% Normal Saline 1,000 ML 999 ML IV ×2 (15:45→18:14)
[2019-08-19 16:03] LABS: Absolute Lymphocyte Count 3.34 X10^3/uL (0.83-4.51); Absolute Neutrophil Count 5.8 X10^3/uL (2.0-7.7); Basophil# 0.04 X10^3/uL; Basophil% 0.4 % (0-1); Eosinophil# 0.36 X10^3/uL; Eosinophils% 3.5 % (0-5); Hematocrit 43.1 % (37-47); Hemoglobin 14.5 g/dL (12.0-15.0); Lymphocyte # 3.34 X10^3/ul (4.0); Lymphocyte % 32.8 % (19-41); Mean Corp Hgb Conc 33.6 g/dL (32-36); Mean Corpuscular Hgb 29.6 pg (27.0-32.0); Mean Platelet Vol. 8.9 fl (6.2-12.0); Monocyte# 0.63 X10^3/uL; Monocyte% 6.2 % (0-10); NRBC Flagged by Analyzer 0 % (0-5); Neutrophil # 5.76 X10^3/uL (2.7-7.7); Neutrophil % 56.6 % (47-70); Platelet Count 297 K/mm3 (150-450); RBC Distribution Width CV 12.5 % (11.6-14.6); White Blood Count 10.2 K/mm3 (4.4-11.0)
[2019-08-19 16:10] LABS: Anion Gap 6 (5-15); BUN 19 mg/dL (7-18); BUN/Creat Ratio 20.5 RATIO (10-20); Calcium,Total 9.3 mg/dL (8.5-10.1); Chloride 105 mmol/L (98-107); Creatinine, Serum 0.93 mg/dL (0.55-1.02); EST Glomerular Filtration Rate 74 mL/min (>60); Est Glom Filt Rate - Afr Amer 89 mL/min (>60); Estimated Creatinine Clearance 71.17 ml/min; Glucose 101 mg/dL (74-106); Potassium 3.1 mmol/L (3.5-5.1); Sodium Level 143 mmol/L (136-145)
[2019-08-19 16:30] LABS: Bacteria 0 SEEN /hpf (None Seen); Mucous, Urine 0 SEEN /hpf (<or=2+); Squamous Epithelial Cells - UA 0 SEEN /hpf (5-10); White Blood Cells 0 SEEN /hpf (0-5)
[2019-08-19 17:00] LABS: Color, Urine Yellow (Yellow); Glucose, Dipstick Normal (Normal); Ketone-Dipstick Negative (Negative); Leukocyte Esterase-Dipstick Negative /ul (Negative); Nitrite-Dipstick Negative (Negative); Occult Blood-Urine 10 /ul (Negative); Protein-Dipstick Negative (Negative); Specific Gravity, Urine 1.015 (1.002-1.030); Urine Bilirubin Dipstick Negative (Negative); Urine Clarity Sl. Cloudy (Clear); Urine Urobilinogen Normal (Normal); Urine pH 6.5 (5.0 - 8.0)
[2019-08-19 17:16] LABS: Red Blood Cells-Urine 0-5 SEEN /hpf (0-5)
[2019-08-19 17:34] VITALS: BP 136/98; PULSE 89; RESP 16; O2SAT 97
[2019-08-19] MEDS: Ketorolac 15 MG/ML Vial IV (17:47)
[2019-08-19] MEDS: HYDROmorphone 0.5 MG/0.5 ML SYRINGE IV (18:14)
--- NOTE | 2019-08-19 18:49 | ED.RN ---
PT ABLE TO VOID POST CATHETER REMOVAL.
[2019-08-19 18:56] VITALS: BP 132/92; PULSE 83; RESP 17; O2SAT 93
== END 2019-08-19 18:57 | disposition home or self-care (01) ==
PROVIDERS: Emergency Provider Emergency Medicine; Family Provider Nurse Practitioner Family; PCP Nurse Practitioner Family
DX: R33.9 Retention of urine, unspecified (principal); N20.1 Calculus of ureter; Z85.3 Personal history of malignant neoplasm of breast
CPT/HCPCS: 51702; 80048; 81001; 85025; 96361; 96374; 96375; 96376; 99284; J7030; A4216; J2405

== ENCOUNTER 2019-08-22 21:55 | Emergency (ER) | payer OTHER, SELFPAY ==
[2019-08-22 21:56] VITALS: BP 127/56; PULSE 115; RESP 24; TEMP 36.3; O2SAT 97; BMI 44.2
--- NOTE | 2019-08-22 22:53 | ED.VIS.GEN ---
History of Present Illness Chief Complaint: Flank Pain Informant: Patient Narrative: Patient complains of left-sided flank pain she was recently seen and diagnosed with a left-sided 4 mm kidney stone. She had 24 hours of no pain and then the pain came back again tonight. She had a 2 mm proximal left renal stone on her recent CAT scan. She thinks that 1 might of come down. She is denying any vomiting. Similar pain is previous kidney stone. Has not made appointment yet with a urologist as he is out of town - Past Medical History (1) History of arthroscopy of right knee Status: Acute Comment: 2008 (2) History of breast cancer Status: Acute (3) Metastatic disease Status: Acute (4) Anxiety and depression Status: Chronic (5) Hypertension Status: Chronic (6) Neuropathy Status: Chronic (7) Seasonal allergies Status: Chronic (8) Vitamin D deficiency Status: Chronic (9) Malignant neoplasm of upper-outer quadrant of right breast, estrogen receptor positive Status: Resolved Past Medical History - Allergies and Home Meds Allergies/Adverse Reactions: Allergies corn Allergy (Severe, Verified 08/22/19 22:18) swelling Beef Containing Products Allergy (Mild, Verified 08/22/19 22:18) other upset stomach azithromycin Allergy (Verified 08/22/19 22:18) Anaphylaxis chlorhexidine [From Hibiclens] Allergy (Verified 08/22/19 22:18) Hives iodine Allergy (Verified 08/22/19 22:18) Hives povidone-iodine [From Betadine] Allergy (Verified 08/22/19 22:18) Hives shellfish derived Allergy (Verified 08/22/19 22:18) Hives soap [From Betadine] Allergy (Verified 08/22/19 22:18) Hives sumatriptan Allergy (Verified 08/22/19 22:18) Rash Primary Care Physician: Grant Flynn NP-C [Primary Care Provider] - Prior records reviewed: Yes Past Medical History: - - See problem list Surgical History: - - Hysterectomy, bilateral mastectomy, breast reconstruction, right knee surgery Lives: With Family Smoking Status: Never smoker Alcohol: None Drugs: None Review of Systems General: Denies: Chills, Fever, Sweats Eyes: Denies: Visual changes - bilaterally, Diplopia ENT: Denies: Rhinorrhea, Sore throat Cardiovascular: Denies: Chest pain, Palpitations Respiratory: Denies: Dyspnea, Cough, Dyspnea on exertion Gastrointestinal: Reports: Nausea. Denies: Abdominal pain, Vomiting, Diarrhea, Melena, Hematochezia Genitourinary: Denies: Dysuria, Hematuria, Frequency Musculoskeletal: Reports: Back pain. Denies: Extremity Pain Skin: Denies: Rash, Wounds Neurological: Denies: Headache, Weakness, Numbness Physical Exam Vital Signs/Narrative: Vital Signs Temp Pulse Resp BP Pulse Ox 08/22/19 21:56 97.3 F L 115 H 24 H 127/56 H 97 General: Well nourished, Well developed, No Acute Distress Head: Normocephalic, Atraumatic Eyes: Perrl, EOMI ENT: Moist mucous membranes, No rhinorrhea Neck: Supple, Nontender Cardiovascular: Regular rate, Regular rhythm, No murmurs Respiratory: No distress, CTA bilaterally, Chest nontender Abdomen: Soft, Nontender, Nondistended, Normal bowel sounds Back: Nontender, Normal Inspection Extremities: Nontender, No edema Skin: Normal color, No rash Neurological: Alert, Oriented x3, Cranial nerves II-XII grossly intact, Normal Strength, Normal Sensation Psychological: Normal affect, Normal Mood Diagnostic/Tx/Re-eval - Medical Decision Making She given IV fluids and Dilaudid and Toradol and Zofran. I do not feel she needs repeat lab work or CAT scan. I suspect she has a new kidney stone from the 2 mm one that was in her kidney. She should pass this and will follow-up as an outpatient ED Disposition - Plan for ED Patient: Disposition: Home or Assisted Living Diagnosis: Left renal stone Instructions: KIDNEY STONE w/ Colic Prescriptions: Oxycodone HCl/Acetaminophen [Percocet 5/325] 1 - 2 tab PO Q6H PRN PRN 3 Days #12 tab PRN Reason: Pain Prescription Printed Ondansetron [Zofran Odt] 4 mg PO Q8H PRN PRN #10 tab PRN Reason: Nausea Prescription Printed Referrals: Mannie Kaplan MD [STAFF PHYSICIAN] -
[2019-08-22] MEDS: HYDROmorphone 1 MG/ML Syringe IV (23:07)
[2019-08-22] MEDS: Ondansetron 4 MG/2 ML Vial IV (23:07)
[2019-08-22] MEDS: Ketorolac 30 MG/ML Syringe IV (23:07)
[2019-08-22 23:52] VITALS: BP 126/101; PULSE 85; RESP 16; O2SAT 97
== END 2019-08-22 23:56 | disposition home or self-care (01) ==
PROVIDERS: Emergency Provider Emergency Medicine; Family Provider Nurse Practitioner Family; PCP Nurse Practitioner Family
DX: N20.0 Calculus of kidney (principal); E55.9 Vitamin D deficiency, unspecified; F32.9 Major depressive disorder, single episode, unspecified; F41.9 Anxiety disorder, unspecified; I10 Essential (primary) hypertension; G62.9 Polyneuropathy, unspecified; Z17.0 Estrogen receptor positive status [ER+]; Z87.442 Personal history of urinary calculi; Z85.3 Personal history of malignant neoplasm of breast; Z88.8 Allergy status to other drugs, medicaments and biological substances
CPT/HCPCS: 96361; 96374; 96375; 99283; J7040; A4216; J2405

== ENCOUNTER 2019-08-28 09:27 | Day surgery (SDC) | payer OTHER, SELFPAY ==
[2019-08-28 10:10] VITALS: BP 130/104; PULSE 95; RESP 20; TEMP 36.6; O2SAT 97; BMI 45.7
[2019-08-28] MEDS: Lactated Ringers 1,000 ML 100 ML IV (10:26)
--- NOTE | 2019-08-28 13:04 | DCINST_ITS ---
Discharge Diet: Light diet - advance as tolerated Discharge Activity: Return to Normal Activity, May not drive while taking narcotic pain medications. Call your doctor if your incision/area has: Continuous Slow Oozing, Sudden Increased Bleeding, Increased Pain/ Swelling, Increased Redness, Foul Smelling Discharge, Swelling at the incision site Suture Line Care: Avoid Pulling/Pushing, Avoid Pinching/Bending Allergies/Adverse Reactions: Allergies corn Allergy (Severe, Verified 08/28/19 10:09) swelling Beef Containing Products Allergy (Mild, Verified 08/28/19 10:09) other upset stomach azithromycin Allergy (Verified 08/28/19 10:09) Anaphylaxis chlorhexidine [From Hibiclens] Allergy (Verified 08/28/19 10:09) Hives iodine Allergy (Verified 08/28/19 10:09) Hives povidone-iodine [From Betadine] Allergy (Verified 08/28/19 10:09) Hives shellfish derived Allergy (Verified 08/28/19 10:09) Hives soap [From Betadine] Allergy (Verified 08/28/19 10:09) Hives sumatriptan Allergy (Verified 08/28/19 10:09) Rash morphine Adverse Reaction (Verified 08/28/19 10:09) Other HEADACHE, AGITATION Medications to take at Discharge amlodipine 5 mg tablet 5 mg PO QDAY #90 tab 06/18/19 chlorthalidone 25 mg tablet 25 mg PO DAILY #90 tab 06/18/19 potassium chloride 10 mEq tablet,extended release 10 meq PO DAILY #30 tab 06/18/19 venlafaxine 150 mg capsule,extended release 24 hr 150 mg PO DAILY #90 cap 06/18/19 venlafaxine 75 mg capsule,extended release 24 hr 75 mg PO QDAY #90 cap 06/18/19 Anastrozole [Arimidex] 1 mg PO QHS 08/15/19 Baclofen 5 mg PO PRN PRN 08/15/19 Pregabalin [Lyrica] 25 mg PO BID 08/15/19 traMADol [Ultram (G)] 50 mg PO Q6H PRN PRN 08/15/19 proMETHazine tablet [Phenergan] 25 mg PO Q6H PRN PRN #10 tab 08/19/19 Ondansetron [Zofran Odt] 4 mg PO Q8H PRN PRN #10 tab 08/22/19 Oxycodone HCl/Acetaminophen [Percocet 5-325 mg Tablet] 1 ea PO PRN PRN 08/27/19 Ciprofloxacin [Cipro] 500 mg PO BID #6 tab 08/28/19 Docusate Sodium [Colace] 100 mg PO BID #20 cap 08/28/19 Hydrocodone/Acetaminophen [[place] 5-325 Tablet] 1 each PO Q4H PRN PRN 5 Days #14 tablet 08/28/19 The following prescriptions were given: Ciprofloxacin [Cipro] 500 mg PO BID #6 tab Transmission Status: Pending to [id number] Docusate Sodium [Colace] 100 mg PO BID #20 cap Transmission Status: Pending to [id number] Hydrocodone/Acetaminophen [[place] 5-325 Tablet] 1 each PO Q4H PRN PRN 5 Days #14 tablet PRN Reason: Pain Score 1-3/10 Transmission Status: Received by [id number] Primary Care Physician: Grant Flynn NP-C [Primary Care Provider] - Test Results: Test results from this visit will be discussed in further detail at your follow- up appointment, if applicable. Please Follow Up With: Mannie Kaplna MD When: in 2 weeks, please call to make an appointment.
[2019-08-28] MEDS: Cefazolin 2 GM in 0.9% Normal Saline 100 ML IV (13:19)
--- NOTE | 2019-08-28 14:07 | PCM.OPRPT ---
Report of Operation Date of Procedure: 08/28/19 Pre-Operative Diagnosis: Left ureteral calculi causing obstruction Post-Operative Diagnosis: The same Surgery/Procedure Performed:: Cystoscopy, left retrograde pyelogram, interpretation fluoroscopic images, balloon dilation of the ureter, left ureteroscopy laser lithotripsy of stone and stent placement Description of Surgical Findings:: 33-year-old female taken back to the operating room after smooth induction of general anesthesia she was placed in dorsolithotomy position went into the bladder with a 21 Serbian rigid cystourethroscope identified the left ureteral orifice advanced a wire up the left ureteral orifice past the stone, I then advanced the balloon dilator right up to the stone and then balloon dilated the ureter up to the stone but not beyond it, I then went up with the SlimLine rigid ureteroscope left the wire in place as a safety wire next a stone and used a 270 ?m laser fiber the laser stone little tiny pieces. I then went past the stone with the flexible ureteroscope up to the kidney inspected the upper pole midpole lower pole the kidney no other mid fragments were seen. Performed a retrograde pyelogram. Left the wire in place and then backloaded over the scope put a wire up on the left side and put a stent up on the left side once a stent coiled in the kidney and bladder good position I pulled the wire and the stent coiled properly patient's bladder was drained and she was taken back to the PACU in good condition plan to see her next week to remove the stent. Type of Anesthesia:: General Drains: stent - Admit VTE Documentation VTE Present on Admission: No
[2019-08-28 14:15] VITALS: BP 130/104; BP 137/106; BP 157/102; PULSE 88; PULSE 99; RESP 16; TEMP 36.3; O2SAT 92
[2019-08-28 14:30] VITALS: BP 130/104; BP 144/89; PULSE 88; RESP 16; O2SAT 100
[2019-08-28 15:00] VITALS: BP 127/75; BP 130/104; PULSE 86; RESP 16; TEMP 36.1; O2SAT 95
[2019-08-28] MEDS: HYDROcodone Bitartrate/Apap 5/325 Tablet PO (15:35)
[2019-08-28 16:00] VITALS: BP 130/104; BP 133/74; PULSE 94; RESP 16; TEMP 36.2; O2SAT 95
== END 2019-08-28 16:11 | disposition home or self-care (01) ==
LOC: SDC 09:28 → AC 09:30
PROVIDERS: Family Provider Nurse Practitioner Family; PCP Nurse Practitioner Family; Referring Provider Urology; Visit Provider Urology
PROC: 0TJ98ZZ Inspection of Ureter, Via Natural or Artificial Opening Endoscopic (ICD-10-PCS; CPT 52352; principal; 2019-08-28 11:30)
DX: N20.1 Calculus of ureter (principal); I10 Essential (primary) hypertension; Z86.718 Personal history of other venous thrombosis and embolism; Z85.3 Personal history of malignant neoplasm of breast; Z90.13 Acquired absence of bilateral breasts and nipples
CPT/HCPCS: 00873; 52356; 76000; J7120; C1769; C2617; J2405

== ENCOUNTER → 2019-09-18 10:56 | Outpatient (CLI) | payer OTHER, SELFPAY ==
[2019-09-18 10:12] VITALS: BMI 45.8
[2019-09-18 13:05] LABS: Anion Gap 4 (5-15); BUN 18 mg/dL (7-18); BUN/Creat Ratio 20.4 RATIO (10-20); Calcium,Total 9.7 mg/dL (8.5-10.1); Chloride 101 mmol/L (98-107); Creatinine, Serum 0.88 mg/dL (0.55-1.02); EST Glomerular Filtration Rate 78 mL/min (>60); Est Glom Filt Rate - Afr Amer 94 mL/min (>60); Glucose 94 mg/dL (74-106); Potassium 3.2 mmol/L (3.5-5.1); Sodium Level 137 mmol/L (136-145)
== END ==
PROVIDERS: PCP Internal Medicine; Referring Provider Nurse Practitioner Family; Visit Provider Nurse Practitioner Family
DX: I10 Essential (primary) hypertension (principal)
CPT/HCPCS: 36415; 80048

== ENCOUNTER → 2019-10-30 09:43 | Outpatient (CLI) | payer OTHER, SELFPAY ==
[2019-10-30 09:20] VITALS: BMI 45.7
[2019-10-30 12:40] LABS: Anion Gap 7 (5-15); BUN 21 mg/dL (7-18); BUN/Creat Ratio 21.3 RATIO (10-20); Calcium,Total 9.3 mg/dL (8.5-10.1); Chloride 101 mmol/L (98-107); Creatinine, Serum 0.98 mg/dL (0.55-1.02); EST Glomerular Filtration Rate 69 mL/min (>60); Est Glom Filt Rate - Afr Amer 83 mL/min (>60); Glucose 84 mg/dL (74-106); Potassium 2.8 mmol/L (3.5-5.1); Sodium Level 138 mmol/L (136-145)
== END ==
PROVIDERS: PCP Internal Medicine; Referring Provider Nurse Practitioner Family; Visit Provider Nurse Practitioner Family
DX: I10 Essential (primary) hypertension (principal); E87.6 Hypokalemia
CPT/HCPCS: 36415; 80048; 83735

== ENCOUNTER → 2019-12-18 12:32 | Outpatient (CLI) | payer OTHER, SELFPAY ==
[2019-11-29 15:13] VITALS: BMI 45.7
[2019-12-18 14:03] LABS: Anion Gap 8 (5-15); BUN 15 mg/dL (7-18); BUN/Creat Ratio 17.1 RATIO (10-20); Calcium,Total 9.5 mg/dL (8.5-10.1); Chloride 104 mmol/L (98-107); Creatinine, Serum 0.88 mg/dL (0.55-1.02); EST Glomerular Filtration Rate 79 mL/min (>60); Est Glom Filt Rate - Afr Amer 95 mL/min (>60); Glucose 91 mg/dL (74-106); Potassium 2.7 mmol/L (3.5-5.1); Sodium Level 141 mmol/L (136-145)
== END ==
PROVIDERS: PCP Internal Medicine; Referring Provider Nurse Practitioner Family; Visit Provider Nurse Practitioner Family
DX: I10 Essential (primary) hypertension (principal)
CPT/HCPCS: 80048

== ENCOUNTER 2020-01-06 22:33 | Emergency (ER) | payer OTHER, SELFPAY ==
[2019-11-29 15:13] VITALS: BMI 45.7
[2020-01-06 22:33] VITALS: BP 147/94; PULSE 109; RESP 18; TEMP 36.3; O2SAT 98; BMI 45.1
--- NOTE | 2020-01-06 22:51 | ED.VIS.INJ ---
History of Present Illness Chief Complaint: Headache Detail of Chief Complaint: Left facial, and ear pain Informant: Patient Onset: Today Mechanism/Context: Blunt Injury Quality of Pain: Dull Location: Left maxillary and left ear Current Severity: Mild Maximum Severity: Moderate Worsened by: Touch Relieved by: Nothing Associated Symptoms: Negative for: Parasthesias, Weakness, Loss of function, Inability to ambulate, Loss of consciousness Narrative: Patient is a history of breast cancer stage IIb that is hormonal receptive who presents with headache, photophobia and neck pain. She is also complaining left facial and left ear pain. This started prior to the headache. She states she was hit by a goat. She was bottlefeeding the goat. She was not kicked. She does complain of blurred vision on left side. Denies double vision or loss of vision. Denies ringing or ears, decreased hearing, rash or drainage from ear. She denies rhinorrhea, postnasal drainage or congestion. She denies sore throat. She denies cardiac respiratory symptoms. She does report nausea without vomiting or diarrhea. She denies anesthesia, paresthesia or weakness in the extremities. She denies problems with balance. She states she takes opiates for her migraine headaches . She is treated by Dr. Escalante. She also gets neck injections. She has not been able to get a neck injection because of the pandemic. Prior similar symptoms: No Recent Illness/Hospitalization: No - Past Medical History (1) History of breast cancer Status: Acute (2) Metastatic disease Status: Acute (3) Anxiety and depression Status: Chronic (4) Hypertension Status: Chronic (5) Neuropathy Status: Chronic (6) Seasonal allergies Status: Chronic (7) Malignant neoplasm of upper-outer quadrant of right breast, estrogen receptor positive Status: Resolved Past Medical History - Allergies and Home Meds Allergies/Adverse Reactions: Allergies corn Allergy (Severe, Verified 01/06/20 22:48) swelling Beef Containing Products Allergy (Mild, Verified 01/06/20 22:48) other upset stomach azithromycin Allergy (Verified 01/06/20 22:48) Anaphylaxis chlorhexidine [From Hibiclens] Allergy (Verified 01/06/20 22:48) Hives iodine Allergy (Verified 01/06/20 22:48) Hives povidone-iodine [From Betadine] Allergy (Verified 01/06/20 22:48) Hives shellfish derived Allergy (Verified 01/06/20 22:48) Hives soap [From Betadine] Allergy (Verified 01/06/20 22:48) Hives sumatriptan Allergy (Verified 01/06/20 22:48) Rash morphine Adverse Reaction (Verified 01/06/20 22:48) Other HEADACHE, AGITATION Primary Care Physician: Alvaro Gonzalez MD [STAFF PHYSICIAN] - Prior records reviewed: Yes Surgical History: - - Hysterectomy, bilateral mastectomy, breast reconstruction, right knee surgery Lives: Spouse/ Significant Other, With Family Smoking Status: Never smoker Alcohol: None Drugs: None Review of Systems General: Denies: Chills, Fever, Malaise, Subjective, Sweats, Weight loss, - Eyes: Reports: Blurred vision - left. Denies: Visual changes - left, Visual changes - right, Diplopia ENT: Denies: Bilateral ear pain, Rhinorrhea, Sore throat Cardiovascular: Denies: Chest pain, Palpitations Respiratory: Denies: Dyspnea, Cough, Dyspnea on exertion Gastrointestinal: Reports: Nausea. Denies: Abdominal pain, Vomiting, Diarrhea, Constipation, Melena, Hematochezia, -, - Genitourinary: Denies: Dysuria, Hematuria, Frequency Musculoskeletal: Denies: Myalgias, Arthralgias, Neck pain, Back pain, Swelling, Extremity Pain, -, - Skin: Denies: Rash, Wounds Neurological: Reports: Headache. Denies: Weakness, Parasthesia, Numbness, -, - Psych: Reports: Depression, Anxiety Hematologic: Denies: Easy bruising, Easy bleeding Physical Exam Vital Signs/Narrative: Vital Signs Temp Pulse Resp BP Pulse Ox 01/06/20 22:33 97.4 F L 109 H 18 147/94 H 98 Inital Vital Signs reviewed: Yes General: Well nourished, Well developed, Obese, - - Of the room she had her eyes covered with blinders. Lights were off. Head: Normocephalic, Atraumatic Eyes: Perrl, EOMI ENT: TM's clear, No hemotympanum or drainage, No trauma, - - Tenderness over the TMJ joint with opening closing her mouth. There is no evidence of malocclusion. There is no trismus.. Negative for: Hemotympanum, Otorrhea, Nasal trauma, Nasal septal hematoma Neck: Nontender, Full ROM, - - Trachea is midline. Cardiovascular: Regular rate, Regular rhythm, No murmurs, Normal S1, Normal S2 Respiratory: No distress, CTA bilaterally, Chest nontender Abdomen: Soft, Nontender, Nondistended, Normal bowel sounds Back: Nontender Skin: Normal color, No rash, Trauma - There is slight swelling over the left maxillary region.. Negative for: Cyanosis, Diaphoresis, Jaundice Neurological: Alert, Oriented x3, Cranial nerves II-XII grossly intact, Normal Strength, Normal Sensation, Normal DTR - DTR 2+ upper and lower extremity and symmetric. Psychological: Normal affect, Depressed Diagnostic/Tx/Re-eval - Medical Decision Making Because there is a history of blunt trauma will obtain facial x-rays to evaluate for fracture. She was medicated with Toradol and Zofran for her headache and nausea. Since there is no history of loss of consciousness and she has a nonfocal neurologic exam CT of the head was not obtained. Patient was reassessed at 0003. She reports minimal improvement. She was informed that her x-rays revealed no fractures. Since patient reports only mild improvement she received 25 mg of Benadryl and 10 mg of Reglan for her headache since she reports history of migraines. Patient was reassessed at 0128. She reports significant improvement, 95%. She would like to go home. She was discharged home. Potassium was 3.2. This is improving from 2.7. ED Disposition - Plan for ED Patient: Disposition: Home or Assisted Living Diagnosis: Facial contusion, Migraine headache without aura, Hypokalemia Instructions: ED CONTUSION Face No Wake Up] Referrals: Alvaro Gonzalez MD [STAFF PHYSICIAN] - As Needed Additional Instructions: Your potassium was 3.2. This is not a critical level.
[2020-01-06] MEDS: Ketorolac 15 MG/ML Vial IV (22:53)
[2020-01-06] MEDS: Ondansetron 4 MG/2 ML Vial IV (22:53)
--- NOTE | 2020-01-06 23:01 | RAD_ITS ---
STUDY: X-RAY - FACIAL BONES REASON FOR STUDY: Female, 34 years old. got hit in face by baby goat TECHNIQUE: 3 view(s) of the facial bones. COMPARISON: None. FINDINGS: Normal bilateral frontozygomatic and zygomatic-temporal arches. Normal bilateral medial and inferior orbital chiang. Normal bilateral orbits. Normal visualized nasal bones. Normal anterior nasal spine. The remaining visualized osseous structures are normal. Normal visualized paranasal sinuses. RAD/Facial Bones min 3 Views IMPRESSION: Normal x-ray examination of the facial bones. Electronically Signed: Luisito Lozada MD at 23:14 EDT , Service support ,
[2020-01-06 23:58] LABS: Anion Gap 6 (5-15); BUN 12 mg/dL (7-18); BUN/Creat Ratio 15.3 RATIO (10-20); Calcium,Total 8.8 mg/dL (8.5-10.1); Chloride 108 mmol/L (98-107); Creatinine, Serum 0.79 mg/dL (0.55-1.02); EST Glomerular Filtration Rate 89 mL/min (>60); Est Glom Filt Rate - Afr Amer 108 mL/min (>60); Glucose 100 mg/dL (74-106); Potassium 3.2 mmol/L (3.5-5.1); Sodium Level 143 mmol/L (136-145)
[2020-01-07] MEDS: DiphenhydrAMINE 50 MG/ML Syringe 25 MG IV (00:16)
[2020-01-07] MEDS: Metoclopramide 10 MG/2 ML Vial IV (00:17)
[2020-01-07 01:48] VITALS: BP 142/68; PULSE 97; RESP 18; O2SAT 97
== END 2020-01-07 01:48 | disposition home or self-care (01) ==
PROVIDERS: Emergency Provider Emergency Medicine; PCP Nurse Practitioner Family
DX: S00.83XA Contusion of other part of head, initial encounter (principal); W55.32XA Struck by other hoof stock, initial encounter; Y93.F9 Activity, other caregiving; Y92.9 Unspecified place or not applicable; Y99.9 Unspecified external cause status; G43.009 Migraine without aura, not intractable, without status migrainosus; E87.6 Hypokalemia; F32.9 Major depressive disorder, single episode, unspecified; F41.9 Anxiety disorder, unspecified; G62.9 Polyneuropathy, unspecified; I10 Essential (primary) hypertension; Z88.8 Allergy status to other drugs, medicaments and biological substances; Z17.0 Estrogen receptor positive status [ER+]; Z85.3 Personal history of malignant neoplasm of breast
CPT/HCPCS: 70150; 80048; 99283; A4216; J2405

== ENCOUNTER → 2020-01-22 11:07 | Outpatient (CLI) | payer OTHER, SELFPAY ==
[2020-01-22 10:19] VITALS: BMI 45.1
[2020-01-22 13:06] LABS: Anion Gap 10 (5-15); BUN 15 mg/dL (7-18); BUN/Creat Ratio 16.7 RATIO (10-20); Calcium,Total 9.4 mg/dL (8.5-10.1); Chloride 103 mmol/L (98-107); EST Glomerular Filtration Rate 76 mL/min (>60); Est Glom Filt Rate - Afr Amer 93 mL/min (>60); Glucose 103 mg/dL (74-106); Potassium 3.4 mmol/L (3.5-5.1); Sodium Level 141 mmol/L (136-145)
[2020-01-22 13:26] LABS: Amphetamine Urine VISTA NEGATIVE (<1000 ng/mL); Barbiturate Urine VISTA NEGATIVE (< 200 ng/mL); Benzodiazepine Urine VISTA NEGATIVE (< 200 ng/mL); Cocaine Urine VISTA NEGATIVE (< 300 ng/mL); Ecstacy Urine VISTA NEGATIVE (< 500 ng/mL); Methadone Urine VISTA NEGATIVE (< 300 ng/mL); PCP Urine VISTA NEGATIVE (< 25 ng/mL); THC Urine VISTA NEGATIVE (< 50 ng/mL); Vista UDS pH Range 5
== END ==
PROVIDERS: PCP Nurse Practitioner Family; Referring Provider Nurse Practitioner Family; Visit Provider Nurse Practitioner Family
DX: E87.6 Hypokalemia (principal); M54.2 Cervicalgia; G89.29 Other chronic pain
CPT/HCPCS: 36415; 80048; 80307

== ENCOUNTER 2020-04-16 20:53 | Emergency (ER) | payer OTHER, SELFPAY ==
[2020-01-22 10:19] VITALS: BMI 45.1
[2020-04-16 20:54] VITALS: BP 142/90; PULSE 125; RESP 18; TEMP 36.7; O2SAT 98; BMI 42.5
[2020-04-16] MEDS: DiphenhydrAMINE 50 MG/ML Syringe 25 MG IV (21:04)
[2020-04-16] MEDS: predniSONE 20 MG Tablet 60 MG PO (21:06)
[2020-04-16 21:11] VITALS: PULSE 104; RESP 18; O2SAT 99
[2020-04-16] MEDS: MethylPREDNISolone 125 MG/2 ML Vial IV (21:21)
[2020-04-16] MEDS: Famotidine 200 MG/20 ML MDV 20 MG in 0.9% Normal Saline (Pres. free 8 ML 300 MG IV (21:23)
[2020-04-16 21:55] VITALS: PULSE 99; RESP 18; O2SAT 95
[2020-04-16] MEDS: Ketorolac 15 MG/ML Vial IV (22:15)
[2020-04-16 22:17] VITALS: PULSE 95; RESP 16; O2SAT 96
--- NOTE | 2020-04-16 22:17 | ED.VISSUMM ---
- ER Visit Summary Date of Service: 04/16/20 Chief Complaint: Allergic reaction History of Present Illness: The patient is a 34 F who states that 7:50 PM she ate bread from a neighbor. She is allergic to corn and does not know what ingredients were in this. She reports that she immediately began feeling short of breath and her tongue began swelling. She took Benadryl and the shortness of breath resolved. However, she reports her tongue is still swollen. She also took a dose of Zyrtec. Patient denies any rash or other complaints. She reports she is had similar symptoms multiple times in the past. Physical Examination: Vitals: Stable. Afebrile. General: Well-nourished and well-developed. Head: Normocephalic atraumatic. HEENT: Mild angioedema of her tongue. Her lips and pharynx are spared. Neck: Supple, no lymphadenopathy. No JVD. Nontender. Cardiovascular: Regular rate and rhythm. No murmurs. Respiratory: No respiratory distress. Clear to auscultation bilaterally. No wheezing or stridor. Abdominal: Soft, nontender, nondistended, normal bowel sounds. No guarding, rebound, or peritoneal signs. Back: Nontender. Extremities: Nontender, no edema. Skin: Normal color, no rash. Neurologic: Alert and oriented ?3. Cranial nerves II through XII are intact. Normal strength and sensation. Psych: Normal affect. Emergency Department Course and Treatment: Patient was given Benadryl, Pepcid, and Solu-Medrol IV. On repeat exam at 1020 her angioedema has essentially resolved. She did complain of a headache and was given dose of Toradol IV. Treatment Plan: Patient already has Zyrtec at home. She will be discharged with Pepcid and prednisone. She given prescription for an EpiPen. Instructed to follow-up with her primary care physician 1 to 2 days if not improving. Return to the emergency department for any worsening symptoms. Disposition: To home in improved and stable condition. Impression: 1. Allergic reaction, acute. This note was generated with [employer] software. It may contain incorrect words, spelling, and punctuation that were not noted in review of the chart prior to signing ED Disposition - Plan for ED Patient: Instructions: ED Angioedema Prescriptions: Prednisone [Deltasone] 40 mg PO DAILY #10 tablet Epi Pen (for allergic rxn) 0.3 mg IM X1 #2 syringe Famotidine [Pepcid] 20 mg PO BID #28 tablet Referrals: Alvaro Gonzalez MD [Primary Care Provider] - 1-2 Days if not improving
== END 2020-04-16 22:36 | disposition home or self-care (01) ==
LOC: ED 21:13
PROVIDERS: Emergency Provider Emergency Medicine; PCP Internal Medicine
DX: T78.40XA Allergy, unspecified, initial encounter (principal); Z85.3 Personal history of malignant neoplasm of breast
CPT/HCPCS: 96365; 96375; 99284; A4216; J3490

== ENCOUNTER → 2020-06-19 11:49 | Outpatient (CLI) | payer OTHER, SELFPAY ==
[2020-06-19 11:04] VITALS: BMI 44.6
[2020-06-19 15:30] LABS: Absolute Lymphocyte Count 2.52 X10^3/uL (0.83-4.51); Absolute Neutrophil Count 4.5 X10^3/uL (2.0-7.7); Basophil# 0.04 X10^3/uL; Basophil% 0.5 % (0-1); Eosinophil# 0.23 X10^3/uL; Eosinophils% 2.9 % (0-5); Hematocrit 46.3 % (37-47); Hemoglobin 15.3 g/dL (12.0-15.0); Lymphocyte # 2.52 X10^3/ul (4.0); Lymphocyte % 32.1 % (19-41); Mean Corpuscular Volume 87.9 fL (81-99); Monocyte# 0.52 X10^3/uL; Monocyte% 6.6 % (0-10); NRBC Flagged by Analyzer 0 % (0-5); Neutrophil % 57.5 % (47-70); Platelet Count 372 K/mm3 (150-450); RBC Distribution Width CV 12.3 % (11.6-14.6); Red Blood Count 5.27 M/mm3 (4.2-5.4); White Blood Count 7.8 K/mm3 (4.4-11.0)
[2020-06-19 16:30] LABS: Amphetamine Urine VISTA NEGATIVE (<1000 ng/mL); Barbiturate Urine VISTA NEGATIVE (< 200 ng/mL); Benzodiazepine Urine VISTA NEGATIVE (< 200 ng/mL); Cocaine Urine VISTA NEGATIVE (< 300 ng/mL); Ecstacy Urine VISTA POSITIVE (< 500 ng/mL); Methadone Urine VISTA NEGATIVE (< 300 ng/mL); PCP Urine VISTA NEGATIVE (< 25 ng/mL); THC Urine VISTA NEGATIVE (< 50 ng/mL); Vista UDS pH Range 6
[2020-06-19 16:31] LABS: AST(SGOT) 19 U/L (15-37); Alanine Aminotransfer ALT/SGPT 31 U/L (13-56); Alkaline Phosphatase 113 U/L (45-117); Anion Gap 8 (5-15); BUN 22 mg/dL (7-18); BUN/Creat Ratio 24.1 RATIO (10-20); Calcium,Total 9.6 mg/dL (8.5-10.1); Chloride 104 mmol/L (98-107); Creatinine, Serum 0.91 mg/dL (0.55-1.02); EST Glomerular Filtration Rate 75 mL/min (>60); Est Glom Filt Rate - Afr Amer 91 mL/min (>60); Globulin 4.2 g/dL (2.2-4.2); Glucose 84 mg/dL (74-106); Potassium 3.7 mmol/L (3.5-5.1); Protein, Total 8.2 g/dL (6.4-8.2); Sodium Level 138 mmol/L (136-145); T4 Free Direct 0.98 ng/dL (0.76-1.46); Thyroid Stim Hormone (TSH) 1.55 uIU/mL (0.358-3.74)
== END ==
PROVIDERS: PCP Internal Medicine; Referring Provider Internal Medicine; Visit Provider Internal Medicine
DX: F41.8 Other specified anxiety disorders (principal); I10 Essential (primary) hypertension; G89.29 Other chronic pain
CPT/HCPCS: 36415; 80053; 80307; 84439; 84443; 85025

== ENCOUNTER → 2020-10-20 09:31 | Outpatient (CLI) | payer OTHER, SELFPAY ==
[2020-10-20 12:12] LABS: Hematocrit 43.2 % (37-47); Hemoglobin 14.3 g/dL (12.0-15.0); Mean Corp Hgb Conc 33.1 g/dL (32-36); Mean Corpuscular Hgb 28.4 pg (27.0-32.0); Mean Corpuscular Volume 85.7 fL (81-99); Mean Platelet Vol. 9.5 fl (6.2-12.0); Platelet Count 344 K/mm3 (150-450); RBC Distribution Width CV 12.6 % (11.6-14.6); RBC Distribution Width SD 38.8 fl (35.1-43.9); Red Blood Count 5.04 M/mm3 (4.2-5.4); White Blood Count 6.7 K/mm3 (4.4-11.0)
[2020-10-20 12:55] LABS: Anion Gap 7 (5-15); BUN 21 mg/dL (7-18); BUN/Creat Ratio 22.3 RATIO (10-20); Calcium,Total 9.4 mg/dL (8.5-10.1); Chloride 106 mmol/L (98-107); Cholesterol 180 mg/dL (200); Creatinine, Serum 0.94 mg/dL (0.55-1.02); EST Glomerular Filtration Rate 72 mL/min (>60); Est Glom Filt Rate - Afr Amer 87 mL/min (>60); Glucose 108 mg/dL (74-106); High Density Lipoprotein 56 mg/dL; Potassium 3.3 mmol/L (3.5-5.1); Sodium Level 140 mmol/L (136-145); T4 Free Direct 0.97 ng/dL (0.76-1.46); Thyroid Stim Hormone (TSH) 1.15 uIU/mL (0.358-3.74); Triglycerides 193 mg/dL; Very Low Density Lipoprotein 39 mg/dL (5-40)
== END ==
PROVIDERS: PCP Internal Medicine; Visit Provider Nurse Practitioner Family
DX: I10 Essential (primary) hypertension (principal); F41.8 Other specified anxiety disorders; E55.9 Vitamin D deficiency, unspecified
CPT/HCPCS: 36415; 80048; 80061; 84439; 84443; 85027

== ENCOUNTER → 2020-12-09 13:51 | Outpatient (CLI) | payer OTHER, SELFPAY ==
[2020-12-09 13:07] VITALS: BMI 53.3
[2020-12-09 14:23] LABS: Absolute Lymphocyte Count 2.47 X10^3/uL (0.83-4.51); Basophil# 0.06 X10^3/uL; Basophil% 0.8 % (0-1); Eosinophil# 0.24 X10^3/uL; Eosinophils% 3.2 % (0-5); Hematocrit 42.2 % (37-47); Hemoglobin 13.7 g/dL (12.0-15.0); Lymphocyte # 2.47 X10^3/ul (0.83-4.51); Lymphocyte % 33.2 % (19-41); Mean Corp Hgb Conc 32.5 g/dL (32-36); Mean Corpuscular Hgb 27.7 pg (27.0-32.0); Mean Corpuscular Volume 85.4 fL (81-99); Mean Platelet Vol. 9.4 fl (6.2-12.0); Monocyte# 0.67 X10^3/uL; NRBC Flagged by Analyzer 0 % (0-5); Neutrophil # 3.97 X10^3/uL (2.7-7.7); Neutrophil % 53.3 % (47-70); Platelet Count 305 K/mm3 (150-450); RBC Distribution Width CV 13.1 % (11.6-14.6); RBC Distribution Width SD 40.7 fl (35.1-43.9); Red Blood Count 4.94 M/mm3 (4.2-5.4); White Blood Count 7.5 K/mm3 (4.4-11.0)
[2020-12-09 14:35] LABS: D-Dimer Quantitative (DVT/PE) 0.33 FEU/ug/m (0.27-0.49)
[2020-12-09 14:49] LABS: BNP,B-Type NATRIURETIC PEPTIDE 31.7 pg/mL (0-100)
[2020-12-09 15:02] LABS: ALB/GLOB Ratio 0.9 RATIO (0.9-2.4); AST(SGOT) 25 U/L (15-37); Alanine Aminotransfer ALT/SGPT 42 U/L (13-56); Albumin, Serum 3.4 g/dL (3.2-5.0); Alkaline Phosphatase 122 U/L (45-117); Anion Gap 5 (5-15); BUN 16 mg/dL (7-18); Calcium,Total 9.1 mg/dL (8.5-10.1); Chloride 107 mmol/L (98-107); Creatinine, Serum 0.89 mg/dL (0.55-1.02); EST Glomerular Filtration Rate 77 mL/min (>60); Est Glom Filt Rate - Afr Amer 93 mL/min (>60); Globulin 3.9 g/dL (2.2-4.2); Glucose 98 mg/dL (74-106); Potassium 3.3 mmol/L (3.5-5.1); Protein, Total 7.3 g/dL (6.4-8.2); Sodium Level 142 mmol/L (136-145); Thyroid Stim Hormone (TSH) 1.38 uIU/mL (0.358-3.74)
== END ==
PROVIDERS: PCP Internal Medicine; Referring Provider Nurse Practitioner Family; Visit Provider Nurse Practitioner Family
DX: R06.00 Dyspnea, unspecified (principal); R60.9 Edema, unspecified
CPT/HCPCS: 36415; 80053; 83880; 84443; 85025; 85379

== ENCOUNTER → 2020-12-11 13:13 | Outpatient (CLI) | payer OTHER, SELFPAY ==
[2020-12-09 13:07] VITALS: BMI 53.3
--- NOTE | 2020-12-11 13:16 | CT_ITS ---
STUDY: CT CHEST WITH CONTRAST REASON FOR EXAM: Female, 35 years old. dyspnea, upper extremity edema, hx of breast CA RADIATION DOSAGE (If Supplied By Facility): CTDIvol = ( 16.72 ) mGy, DLP = ( 666.17 ) mGycm TECHNIQUE: Transaxial imaging was performed following intravenous administration of IV 100mL Isovue-300. Individualized dose optimization techniques were used for this CT. COMPARISON: 03/10/2017. FINDINGS: Minor atelectasis within the dependent portion of the lungs. No focal infiltration or pulmonary nodule.. There is no demonstrated pleural abnormality. Normal heart and pericardium. Normal mediastinum. Normal hilar regions. Examination of the pulmonary arteries is less than optimal due to poor bolus timing and suboptimal opacification of the vessels. There is no definitive evidence for intraluminal filling defects within the visualized portions of the vessels. However, if strong clinical suspicion for pulmonary embolus radionuclide lung perfusion and ventilation may be performed or DOPPLER study of deep venous system of lower extremities is recommended. Normal aorta arch and descending thoracic aorta. Normal osseous structures. Bilateral breast prostheses are observed Diffuse nonspecific fatty infiltration of the liver.. CT/Chest WITH Contrast IMPRESSION: Minor atelectasis within the dependent portion of the lungs.. No gross abnormalities. Limited study of the pulmonary arteries without definitive evidence for pulmonary embolus however if strong clinical suspicion for pulmonary embolus DOPPLER study of deep venous system of lower extremities or radionuclide ventilation/perfusion study of the lungs is recommended Electronically Signed: Santana Andino MD at 16:13 EDT , Service support ,
[2020-12-11] MEDS: 0.9% Saline Lock 10 ML Syringe IV (14:12)
[2020-12-11] MEDS: DiphenhydrAMINE 50 MG/ML Syringe IV (14:22)
[2020-12-11] MEDS: Acetaminophen/Butalbital/Caffe 1 Tablet PO ×2 (14:23→15:30)
[2020-12-11 14:40] VITALS: BP 146/88; PULSE 88; RESP 16; TEMP 36.9; O2SAT 98
[2020-12-11 14:49] VITALS: BMI 53.1
--- NOTE | 2020-12-11 15:16 | NURSING ---
Called Grant Flynn to request something more for Pt for migraine, nurse is going to send message as he was in with a patient.
[2020-12-11 15:32] VITALS: BP 154/99; PULSE 86; RESP 20; TEMP 36.8; O2SAT 98
[2020-12-11 15:55] VITALS: BP 164/95; PULSE 95; RESP 16; O2SAT 100
[2020-12-11 16:00] VITALS: BP 181/70; PULSE 91; RESP 16; O2SAT 99
--- NOTE | 2020-12-11 16:17 | NURSING ---
Called Mother in law and notified that Pt was going to ED and brought her to Pt room. Gave hand off report to January Rodriguez RN in ED.
== END ==
PROVIDERS: PCP Internal Medicine; Referring Provider Nurse Practitioner Family; Visit Provider Nurse Practitioner Family
DX: C50.411 Malignant neoplasm of upper-outer quadrant of right female breast (principal); Z17.0 Estrogen receptor positive status [ER+]; Z85.3 Personal history of malignant neoplasm of breast; R06.02 Shortness of breath; M79.89 Other specified soft tissue disorders; T78.49XA Other allergy, initial encounter; T38.0X5A Adverse effect of glucocorticoids and synthetic analogues, initial encounter; Y92.239 Unspecified place in hospital as the place of occurrence of the external cause; I10 Essential (primary) hypertension; G43.909 Migraine, unspecified, not intractable, without status migrainosus; Z88.8 Allergy status to other drugs, medicaments and biological substances; Z91.041 Radiographic dye allergy status
CPT/HCPCS: 71260; 96374; 96375; 99282; J7050; Q9967; J3490

== ENCOUNTER 2020-12-11 16:10 | Emergency (ER) | payer OTHER, SELFPAY ==
[2020-12-11 14:49] VITALS: BMI 53.1
[2020-12-11 16:11] VITALS: BP 137/126; PULSE 106; RESP 23; TEMP 37.3; O2SAT 98
[2020-12-11 16:12] VITALS: BP 137/126; PULSE 102; RESP 20; TEMP 37.3; O2SAT 99; BMI 53.1
--- NOTE | 2020-12-11 16:28 | ED.VIS.GEN ---
History of Present Illness Chief Complaint: Allergic Reaction Informant: Patient Onset: Today Context: Sudden Onset Narrative: Patient is a 35-year-old female with history of multiple allergies presenting from radiology for concern of allergic reaction to contrast. Patient does have a history of iodine allergy. She received contrast for CT of the chest for work-up for leg swelling and she was premedicated with Solu-Medrol Benadryl per the protocol. Shortly after receiving contrast she started to feel like her body was on fire. She states her tongue felt a little swollen. She was having some wheezing. Patient currently denies any shortness of breath. She states she does have a migraine. She no she has a history of migraines and she thinks the steroids caused it. She denies any vomiting but does have some nausea. No complaints of abdominal pain, chest pain or anything else. Past Medical History - Allergies and Home Meds Allergies/Adverse Reactions: Allergies corn Allergy (Severe, Verified 12/09/20 13:06) swelling Beef Containing Products Allergy (Mild, Verified 12/09/20 13:06) other upset stomach azithromycin Allergy (Verified 12/09/20 13:06) Anaphylaxis chlorhexidine [From Hibiclens] Allergy (Verified 12/09/20 13:06) Hives iodine Allergy (Verified 12/11/20 13:52) Hives burning povidone-iodine [From Betadine] Allergy (Verified 12/09/20 13:06) Hives shellfish derived Allergy (Verified 12/11/20 13:52) Anaphylaxis soap [From Betadine] Allergy (Verified 12/09/20 13:06) Hives sumatriptan Allergy (Verified 12/09/20 13:06) Rash morphine Adverse Reaction (Verified 12/09/20 13:06) Other HEADACHE, AGITATION Primary Care Physician: Alvaro Gonzalez MD [Primary Care Provider] - Past Medical History: - - Anxiety, depression, neuropathy, hypertension, history of breast cancer, migraines Surgical History: noncontributory, - Lives: Spouse/ Significant Other Smoking Status: Unknown if ever smoked Review of Systems General: Denies: Chills, Fever, Sweats Eyes: Reports: - - Photophobia. Denies: Visual changes - bilaterally, Diplopia ENT: Reports: - - No edema of the tongue of the oropharynx noted Cardiovascular: Denies: Chest pain, Palpitations Respiratory: Reports: - - No wheezing or stridor. Denies: Dyspnea, Cough, Dyspnea on exertion Gastrointestinal: Reports: Nausea. Denies: Abdominal pain, Vomiting, Diarrhea, Melena, Hematochezia Genitourinary: Denies: Dysuria, Hematuria, Frequency Musculoskeletal: Denies: Back pain, Extremity Pain Skin: Reports: Rash. Denies: Wounds Neurological: Reports: Headache. Denies: Weakness, Numbness Physical Exam Vital Signs/Narrative: Vital Signs Temp Pulse Resp BP Pulse Ox 12/11/20 16:12 99.2 F H 102 H 20 H 137/126 H 99 12/11/20 16:11 99.2 F H 106 H 23 H 137/126 H 98 Inital Vital Signs reviewed: Yes General: Well nourished, Well developed, Obese, No Acute Distress Head: Normocephalic, Atraumatic Eyes: Perrl, EOMI ENT: Moist mucous membranes, No rhinorrhea. Negative for: Dry mucous membranes Neck: Supple, Nontender Cardiovascular: Regular rate, Regular rhythm, No murmurs Respiratory: No distress, CTA bilaterally, Chest nontender. Negative for: Wheezing, Diminished Abdomen: Soft, Nontender, Nondistended, Normal bowel sounds Back: Nontender, Normal Inspection Extremities: Nontender, No edema Skin: Normal color, No rash, Rash - Flushing of the skin, no urticaria noted Neurological: Alert, Oriented x3, Cranial nerves II-XII grossly intact, Normal Strength, Normal Sensation Psychological: Normal affect, Normal Mood Diagnostic/Tx/Re-eval - Medical Decision Making Patient evaluated for allergic reaction to contrast. Does have a history of contrast allergy but was premedicated with Benadryl and Solu-Medrol. Her exam is not consistent with anaphylaxis. She is not given epinephrine. She does have a migraine associated to receiving steroids earlier. This is normal for her. Patient is given migraine cocktail including Toradol, Compazine and Benadryl. Is given IV fluids. She is also given Pepcid. On reevaluation she feels much better and is ready to go home. Patient is instructed to follow-up with an public health technician. She will follow-up with her primary care doctor and discuss this with further. She is given a [id number] prescription for prednisone. She will try taking Benadryl but if she continues to have recurrent allergic symptoms she will take the steroids. Patient is counseled on signs and symptoms requiring return to the emergency room. Patient verbalizes agreement and understand this plan. Patient discharged home in stable and improved condition. ED Disposition - Plan for ED Patient: Disposition: Home or Assisted Living Diagnosis: Allergic reaction caused by a drug, Migraine Instructions: ED General Allergic Reactions, ED, Migraine (Classical) Prescriptions: Prednisone [Deltasone] 40 mg PO DAILY #10 tablet Prescription Printed Referrals: Alvaro Gonzalez MD [Primary Care Provider] -
[2020-12-11] MEDS: Ketorolac 15 MG/ML Vial IV (16:32)
[2020-12-11] MEDS: DiphenhydrAMINE 50 MG/ML Syringe 25 MG IV (16:33)
[2020-12-11] MEDS: proCHLORPERazine 10 MG/2 ML Vial IV (16:33)
[2020-12-11] MEDS: Famotidine 200 MG/20 ML MDV 20 MG in 0.9% Normal Saline (Pres. free 8 ML 300 MG IV (17:23)
[2020-12-11 17:25] VITALS: BP 140/73; PULSE 89; RESP 16; O2SAT 94
[2020-12-11 18:05] VITALS: BP 153/78; PULSE 83; RESP 14; O2SAT 92
[2020-12-11 18:23] VITALS: RESP 18; O2SAT 98
== END 2020-12-11 18:24 | disposition home or self-care (01) ==
PROVIDERS: Emergency Provider Emergency Medicine; PCP Internal Medicine
DX: T78.49XA Other allergy, initial encounter (principal); T38.0X5A Adverse effect of glucocorticoids and synthetic analogues, initial encounter; Y92.239 Unspecified place in hospital as the place of occurrence of the external cause; I10 Essential (primary) hypertension; G43.909 Migraine, unspecified, not intractable, without status migrainosus; Z85.3 Personal history of malignant neoplasm of breast; Z88.8 Allergy status to other drugs, medicaments and biological substances; Z91.041 Radiographic dye allergy status
CPT/HCPCS: 96374; 96375; 99282; J7050; J3490

== ENCOUNTER 2020-12-13 20:26 | Observation (INO) | payer OTHER, SELFPAY ==
[2020-12-13 20:26] VITALS: BP 135/83; PULSE 91; RESP 18; TEMP 37.2; O2SAT 99; BMI 53.5
--- NOTE | 2020-12-13 20:33 | EKG12_ITS ---
Test Reason : SYNCOPE Blood Pressure : / mmHG Vent. Rate : 096 BPM Atrial Rate : 096 BPM P-R Int : 136 ms QRS Dur : 082 ms QT Int : 368 ms P-R-T Axes : 024 048 044 degrees QTc Int : 464 ms Normal sinus rhythm Normal ECG Confirmed by KAYLEE YOON, LUZ MARINA ([id number]), commissioning editor KALI ESCALANTE ([id number]) on 12/16/2020 8:52:06 AM Referred By: PERLITA Confirmed By:LUZ MARINA PAGE MD
--- NOTE | 2020-12-13 20:37 | ED.DCSUM_ITS ---
History of Present Illness Chief Complaint: Syncope Informant: Patient, Family Narrative: 35-year-old female with past medical history of breast cancer presents with concern for syncope. Patient states over the past 3 days she has had multiple episodes of syncope. States that 2 days ago she had one episode. States that she can feel it coming on like the room is spinning and she knows she is going to pass out. States that she is fallen to the ground multiple times with multiple head injuries. Patient is not on anticoagulation. at the bedside states that she is passed out at least 3 times today. Patient is complaining of a headache. States it is not the worst of her life. States it was not maximal at onset. It is waxed and waned over the past 3 days. Denies any vision change, neck pain, nausea, vomiting, abdominal pain, chest pain, urinary symptoms. Patient was seen by her primary care physician as an outpatient a few days ago at which time a CT of her chest with IV contrast was ordered. Patient was concerned given she was having swelling in her upper extremities. States that she is also been more short of breath on exertion recently. Past Medical History - Allergies and Home Meds Allergies/Adverse Reactions: Allergies corn Allergy (Severe, Verified 12/09/20 13:06) swelling Beef Containing Products Allergy (Mild, Verified 12/09/20 13:06) other upset stomach azithromycin Allergy (Verified 12/09/20 13:06) Anaphylaxis chlorhexidine [From Hibiclens] Allergy (Verified 12/09/20 13:06) Hives iodine Allergy (Verified 12/11/20 13:52) Hives burning povidone-iodine [From Betadine] Allergy (Verified 12/09/20 13:06) Hives shellfish derived Allergy (Verified 12/11/20 13:52) Anaphylaxis soap [From Betadine] Allergy (Verified 12/09/20 13:06) Hives sumatriptan Allergy (Verified 12/09/20 13:06) Rash morphine Adverse Reaction (Verified 12/09/20 13:06) Other HEADACHE, AGITATION Primary Care Physician: Alvaro Gonzalez MD [Primary Care Provider] - Prior records reviewed: Yes Past Medical History: - - Breast cancer Surgical History: noncontributory, - Lives: Spouse/ Significant Other Smoking Status: Never smoker Alcohol: None Drugs: None Review of Systems General: Denies: Chills, Fever, Sweats Eyes: Denies: Visual changes - bilaterally, Diplopia ENT: Denies: Rhinorrhea, Sore throat Cardiovascular: Denies: Chest pain, Palpitations Respiratory: Denies: Dyspnea, Cough, Dyspnea on exertion Gastrointestinal: Denies: Abdominal pain, Nausea, Vomiting, Diarrhea, Melena, Hematochezia Genitourinary: Denies: Dysuria, Hematuria, Frequency Musculoskeletal: Denies: Back pain, Extremity Pain Skin: Denies: Rash, Wounds Neurological: Reports: - - Syncope. Denies: Headache, Weakness, Numbness Physical Exam Vital Signs/Narrative: Vital Signs Temp Pulse Resp BP Pulse Ox 12/13/20 20:26 99.0 F 91 18 135/83 H 99 Inital Vital Signs reviewed: Yes General: Well nourished, Well developed, No Acute Distress Head: Normocephalic, Atraumatic Eyes: Perrl, EOMI ENT: Moist mucous membranes, No rhinorrhea Neck: Supple, Nontender Cardiovascular: Regular rate, Regular rhythm, No murmurs Respiratory: No distress, CTA bilaterally, Chest nontender Abdomen: Soft, Nontender, Nondistended, Normal bowel sounds Back: Nontender, Normal Inspection Extremities: Nontender, No edema Skin: Normal color, No rash Neurological: Alert, Oriented x3, Cranial nerves II-XII grossly intact, Normal Strength, Normal Sensation Psychological: Normal affect, Normal Mood Diagnostic/Tx/Re-eval Clinical Impression(s) from Imaging Studies Brain CT 12/13/20 21:00 IMPRESSION: Normal unenhanced CT scan of the brain. Electronically Signed: Ky Osborne MD at 21:43 EDT , Service support , Laboratory Data 12/13/20 12/13/20 12/13/20 20:47 20:47 20:47 WBC 10.3 RBC 5.12 Hgb 14.3 Hct 43.9 MCV 85.7 MCH 27.9 MCHC 32.6 RDW Std Deviation 41.2 RDW Coeff of Adwoa 13.2 Plt Count 339 MPV 9.2 Immature Gran % (Auto) 0.700 Neut % (Auto) 51.6 Lymph % (Auto) 37.7 Lassen % (Auto) 6.9 Eos % (Auto) 2.4 Baso % (Auto) 0.7 Absolute Neuts (auto) 5.3 Absolute Lymphs (auto) 3.87 Nucleated RBC % 0 Sodium 138 Potassium 3.4 L Chloride 103 Carbon Dioxide 28.0 Anion Gap 7 BUN 24 H Creatinine 1.07 H Estim Creat Clear Calc 60.70 Est GFR (MDRD) Af Amer 75 Est GFR (MDRD) Non-Af 62 BUN/Creatinine Ratio 22.4 H Glucose 111 H Calcium 9.0 Total Bilirubin 0.20 AST 18 ALT 33 Alkaline Phosphatase 128 H Troponin I < 0.015 B-Natriuretic Peptide 8.3 Total Protein 7.9 Albumin 3.6 Globulin 4.3 H Albumin/Globulin Ratio 0.8 L Serum , Qual 12/13/20 20:57 WBC RBC Hgb Hct MCV MCH MCHC RDW Std Deviation RDW Coeff of Adwoa Plt Count MPV Immature Gran % (Auto) Neut % (Auto) Lymph % (Auto) Lassen % (Auto) Eos % (Auto) Baso % (Auto) Absolute Neuts (auto) Absolute Lymphs (auto) Nucleated RBC % Sodium Potassium Chloride Carbon Dioxide Anion Gap BUN Creatinine Estim Creat Clear Calc Est GFR (MDRD) Af Amer Est GFR (MDRD) Non-Af BUN/Creatinine Ratio Glucose Calcium Total Bilirubin AST ALT Alkaline Phosphatase Troponin I B-Natriuretic Peptide Total Protein Albumin Globulin Albumin/Globulin Ratio Serum , Qual NEGATIVE - Rhythm Strip Rhythm Strip: Sinus Rhythm Rate: 96 Ectopy: None - EKG Initial EKG Interpretation: Sinus Rhythm - Normal sinus rhythm at 96 bpm. AL interval of 136 ms. QTC of 464 ms. No evidence of ST elevation or depression at this time. - Medical Decision Making Patient appears well and nontoxic. No focal neurologic deficit. Vital signs with slight hypertension but otherwise within normal limits. CT brain negative. Lab work shows a slight volume depletion. EKG nonischemic. Patient was given 1 L of normal saline. CTA of the head and neck was considered however patient is allergic to iodine. Given the frequency with with the patient is having syncope she will be admitted for further treatment and evaluation. Impression: 1. Syncope 2. Headache ED Disposition - Plan for ED Patient: Disposition: Acute Care Hospital [facility] Referrals: Alvaro Gonzalez MD [Primary Care Provider] -
[2020-12-13] MEDS: 0.9% Normal Saline 1,000 ML 1000 ML IV (20:42)
[2020-12-13 20:44] VITALS: BP 153/93; BP 159/108; PULSE 99
--- NOTE | 2020-12-13 21:00 | CT_ITS ---
STUDY: CT BRAIN WITHOUT CONTRAST REASON FOR EXAM: Female, 35 years old. syncope with headache RADIATION DOSAGE (If Supplied By Facility): CTDIvol = ( ) mGy, DLP = ( 749.49 ) mGycm TECHNIQUE: Transaxial CT imaging of the brain was performed without administration of intravenous contrast material. Individualized dose optimization techniques were used for this CT. COMPARISON: MR brain 06/07/[address] brain 03/22/2017 FINDINGS: Normal soft tissue structures. Normal calvarium. Normal size ventricles and extra-axial spaces for the patient''s age. Normal white matter tracts of the cerebral hemispheres. Normal basal ganglia and thalami. Normal brainstem. Normal cerebellum. There is no intracranial hemorrhage. There are no findings of an acute ischemic infarction. Normal visualized paranasal sinuses. CT/Brain/Head without Contrast IMPRESSION: Normal unenhanced CT scan of the brain. Electronically Signed: Ky Osborne MD at 21:43 EDT , Service support ,
[2020-12-13 21:07] LABS: Absolute Lymphocyte Count 3.87 X10^3/uL (0.83-4.51); Absolute Neutrophil Count 5.3 X10^3/uL (2.0-7.7); Basophil# 0.07 X10^3/uL; Basophil% 0.7 % (0-1); Eosinophil# 0.25 X10^3/uL; Eosinophils% 2.4 % (0-5); Hematocrit 43.9 % (37-47); Hemoglobin 14.3 g/dL (12.0-15.0); Lymphocyte # 3.87 X10^3/ul (0.83-4.51); Lymphocyte % 37.7 % (19-41); Mean Corp Hgb Conc 32.6 g/dL (32-36); Mean Corpuscular Hgb 27.9 pg (27.0-32.0); Mean Corpuscular Volume 85.7 fL (81-99); Mean Platelet Vol. 9.2 fl (6.2-12.0); Monocyte# 0.71 X10^3/uL; Monocyte% 6.9 % (0-10); NRBC Flagged by Analyzer 0 % (0-5); Neutrophil # 5.29 X10^3/uL (2.7-7.7); Neutrophil % 51.6 % (47-70); Platelet Count 339 K/mm3 (150-450); RBC Distribution Width CV 13.2 % (11.6-14.6); RBC Distribution Width SD 41.2 fl (35.1-43.9); Red Blood Count 5.12 M/mm3 (4.2-5.4); White Blood Count 10.3 K/mm3 (4.4-11.0)
[2020-12-13 21:17] LABS: BNP,B-Type NATRIURETIC PEPTIDE 8.3 pg/mL (0-100)
[2020-12-13 21:22] LABS: ALB/GLOB Ratio 0.8 RATIO (0.9-2.4); AST(SGOT) 18 U/L (15-37); Alanine Aminotransfer ALT/SGPT 33 U/L (13-56); Albumin, Serum 3.6 g/dL (3.2-5.0); Alkaline Phosphatase 128 U/L (45-117); Anion Gap 7 (5-15); BUN 24 mg/dL (7-18); BUN/Creat Ratio 22.4 RATIO (10-20); Chloride 103 mmol/L (98-107); Creatinine, Serum 1.07 mg/dL (0.55-1.02); EST Glomerular Filtration Rate 62 mL/min (>60); Est Glom Filt Rate - Afr Amer 75 mL/min (>60); Globulin 4.3 g/dL (2.2-4.2); Glucose 111 mg/dL (74-106); Potassium 3.4 mmol/L (3.5-5.1); Protein, Total 7.9 g/dL (6.4-8.2); Sodium Level 138 mmol/L (136-145)
[2020-12-13 21:27] LABS: Internal QC Validated? YES +Cl - CLEAR BKGD; Pregnancy, Serum, hCG Quali. NEGATIVE Negative
--- NOTE | 2020-12-13 22:03 | HP.PCM_ITS ---
Problem List (1) Syncope and collapse Status: Acute (2) Exertional dyspnea Status: Acute (3) Intractable migraine Status: Acute Qualifiers: Migraine type: unspecified (4) Morbid obesity Status: Chronic (5) Anxiety and depression Status: Chronic (6) Neuropathy Status: Chronic (7) Seasonal allergies Status: Chronic Qualifiers: Allergic rhinitis trigger: unspecified Qualified Code(s): J30.2 - Other seasonal allergic rhinitis (8) Hypertension Status: Chronic Qualifiers: Hypertension type: essential hypertension Qualified Code(s): I10 - Essential (primary) hypertension (9) History of breast cancer Status: Chronic History of Present Illness Date of Admission: 12/13/20 Chief Complaint: Syncopal events The patient is a 35 y/o F w/ PMHx: Morbid Obesity, Hx Breast s/p BL mastectomy 10/2015 with reconstruction, HTN, Allergic Rhinitis, Anxiety and Depression who presents to the [facility] ED on 12/13/20 with history of syncopal events, pacifically noting multiple episodes over the last 3 days with initial onset of room spinning with sensation of near syncope eventually passing out, hitting her head with reporting similar episode 3 times a day with headache ongoing which has been waxing and waning over the last 3 days with no associated vision alteration, neck pain, nausea, emesis early however upon ED presentation she did have onset intractable migraine with throbbing in the frontal region, light and sound sensitivity, nausea as well, not improving. Additionally, patient has been having exertional dyspnea and some BL LE swelling prompting recent PCP evaluation with CT of her chest with IV contrast was ordered which was not marked appearing but was poor bolus timing however d-dimer was unremarkable. Work-up in the ED included T 99, heart rate 91, BP 135/83, respiratory rate 18, 90% on room air, not marked appearing orthostatic vital signs, CBC with WBC 10.3, hemoglobin 14.3, platelet 339 without shift, CMP with potassium 3.4, BUN/creatinine 24/1.07, glucose 111, alk phos 128, troponin less than 0.015, BNP 8.3, unremarkable hepatic profile, negative serum testing, CT head with no acute intracranial findings, EKG with sinus rhythm with no acute evid ence of ischemia. In the ED patient ministered normal saline as well as Ativan 0.5 mg IV x1. Past Medical History Past Medical History (Chronic Problems): Chronic Problems (Last Reviewed 12/09/20 @ 13:06 by Staci Daniels) Morbid obesity (Chronic) Vitamin D deficiency (Chronic) Anxiety and depression (Chronic) Neuropathy (Chronic) Seasonal allergies (Chronic) Hypertension (Chronic) History of breast cancer (Chronic) Medical History: Medical History (Last Reviewed 12/09/20 @ 13:06 by Staci Daniels) Seasonal allergies (Chronic) J30.2 Hypertension (Chronic) I10 History of breast cancer (Acute) Z85.3 Allergies corn Allergy (Severe, Verified 12/09/20 13:06) swelling Beef Containing Products Allergy (Mild, Verified 12/09/20 13:06) other upset stomach azithromycin Allergy (Verified 12/09/20 13:06) Anaphylaxis chlorhexidine [From Hibiclens] Allergy (Verified 12/09/20 13:06) Hives iodine Allergy (Verified 12/11/20 13:52) Hives burning povidone-iodine [From Betadine] Allergy (Verified 12/09/20 13:06) Hives shellfish derived Allergy (Verified 12/11/20 13:52) Anaphylaxis soap [From Betadine] Allergy (Verified 12/09/20 13:06) Hives sumatriptan Allergy (Verified 12/09/20 13:06) Rash morphine Adverse Reaction (Verified 12/09/20 13:06) Other HEADACHE, AGITATION Home Medications: Ambulatory Orders Medication Instructions Recorded Anastrozole [Arimidex] 1 mg PO QHS 08/15/19 pregabalin 75 mg capsule 75 mg PO BID #60 cap 11/19/20 tramadol 50 mg tablet 50 mg PO Q12H PRN #14 tablet 12/09/20 Cetirizine HCl 10 mg PO PRN PRN 12/11/20 Epi Pen [Epi-Pen] 0.3 mg IM X1 PRN 12/11/20 Fluoxetine HCl 40 mg PO BID 12/11/20 Furosemide [Lasix] 20 mg PO QAM 12/11/20 Lisinopril 10 mg PO DAILY 12/11/20 Meloxicam 7.5 mg PO DAILY PRN 12/11/20 Mirtazapine 15 mg PO QHS 12/11/20 Potassium Chloride [K-Tab ER] 20 meq PO BID 12/11/20 Prednisone [Deltasone] 40 mg PO DAILY #10 tablet 12/11/20 Surgical History: Surgical History (Last Reviewed 12/09/20 @ 13:06 by Staci Daniels) History of arthroscopy of right knee (Acute) Z98.890 2008 History of breast reconstruction Z98.82 01/2016 History of hysterectomy Z98.890, Z90.710 05/2016 History of lithotripsy Z98.890 History of lumpectomy of right breast Z98.890 05/13 History of right breast biopsy Z98.890 carcinoma, 04/2015 Hx of bilateral mastectomy Z98.890, Z90.13 10/2015 history of right fallopian tube removal after eptopic Surgical History: - - Bilateral mastectomy with reconstructive breast surgery, prior breast lumpectomies, lithotripsy, right fallopian tube resection following ectopic . 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 Paternal Family History: Family History (Last Reviewed 12/09/20 @ 13:06 by Staci Daniels) Mother Breast cancer blood clots Depression Hypertension Osteoporosis Aunt Breast cancer Grandmother Breast cancer History Items: - - Denied any marked paternal family history including heart disease, diabetes, cancer. Review of Systems Constitutional: Reports: Anorexia, Malaise, Weakness, Fatigue. Denies: Chills, Fever, Weight Change HEENT: Reports: Head Aches. Denies: Sinus Congestion, Sinus Drainage Cardiovascular: Reports: Syncope, - - Dizziness.. Denies: Chest Pain, Palpitations Respiratory: Reports: Shortness of Breath, Shortness of breath at rest, Shortness of breath upon exertion. Denies: Cough, Sputum production Gastrointestinal: Reports: Nausea. Denies: Abdominal Pain, Vomiting Genitourinary: Denies: Dysuria Musculoskeletal: Reports: Joint Pain. Denies: Joint Tenderness Skin: Denies: Rash, Wounds Neurological: Denies: Numbness, Tingling, Focal weakness Psychiatric: Reports: Anxiety, Depression. Denies: Homicidal Ideations, Suicidal Ideations Hematologic/ Lymphatic: Reports: Hx of blood clot. Denies: Easy Bruising, Easy Bleeding VTE Information - Inpt Only VTE Present on Admission: No VTE Mechan Device Prophylaxis: SCD's VTE Pharm Prophylaxis ordered?: Yes Patient Problems: Active and Suspected Problems (Last Reviewed 12/09/20 @ 13:06 by Staci Daniels) Syncope and collapse (Acute) Exertional dyspnea (Acute) Intractable migraine (Acute) Subjective: Patient laying in the ED bed, fatigued, has a cloth over her eyes, notes ongoing light and sound sensitivity, migraine present. Objective: Physical Examination: General: awake, alert, oriented x 3 and cooperative, laying in the ED bed, washcloth over her eyes, ongoing light and sound sensitivity with ongoing migraine. Skin: normal color, turgor, no icterus, cyanosis. HEENT: AT/NC, EOMI, PERRLA, dry MM, no carotid bruits or JVD noted. Lungs: CTA bilaterally, moderate effort, mild decrease BL bases, no rales, ronchi or wheezing. Heart: Regular rate and rhythm; no gallop, rub audible. Abdomen: soft, morbidly obese, NTTP, ND, normal BS, no HSM. Extremities: no cyanosis or clubbing, bilateral pedal to proximal betancur reported edema per patient however there is no pitting. Neurological: patient awake, alert, oriented as noted; cognitive function intact; pupils equally reactive to light and accomodation; cranial nerves II-XII grossly normal although difficult assessment given ongoing migraine with light and sound sensitivity, moving all extremities, no focal deficits, strength severely global decrease given acute presentation. Psychiatric: affect appears fatigued, uncomfortable, no acute evidence of depressive or anxiety feelings. - Physical Exam Vitals/I&O's: Vital Signs Temp Pulse Resp BP Pulse Ox 99.0 F 99 18 153/93 H 99 12/13/20 20:26 12/13/20 20:44 12/13/20 20:26 12/13/20 20:44 12/13/20 20:26 Oxygen Delivery Method Room Air Weight: 302 lb 4.06 oz Body Mass Index (BMI) 53.5 Laboratory Results 12/13/20 20:47: WBC 10.3, RBC 5.12, Hgb 14.3, Hct 43.9, MCV 85.7, MCH 27.9, MCHC 32.6, RDW Std Deviation 41.2, RDW Coeff of [place] 13.2, Plt Count 339, MPV 9.2, Immature Gran % (Auto) 0.700, Neut % (Auto) 51.6, Lymph % (Auto) 37.7, [place] % (Auto) 6.9, Eos % (Auto) 2.4, Baso % (Auto) 0.7, Absolute Neuts (auto) 5.3, Absolute Lymphs (auto) 3.87, Nucleated RBC % 0 12/13/20 20:47: Sodium 138, Potassium 3.4 L, Chloride 103, Carbon Dioxide 28.0, Anion Gap 7, BUN 24 H, Creatinine 1.07 H, Estim Creat Clear Calc 60.70, Est GFR (MDRD) Af Amer 75, Est GFR (MDRD) Non-Af 62, BUN/Creatinine Ratio 22.4 H, Glucose 111 H, Calcium 9.0, Total Bilirubin 0.20, AST 18, ALT 33, Alkaline Phosphatase 128 H, Troponin I < 0.015, Total Protein 7.9, Albumin 3.6, Globulin 4.3 H, Albumin/Globulin Ratio 0.8 L 12/13/20 20:47: B-Natriuretic Peptide 8.3 12/13/20 20:57: Serum , Qual NEGATIVE Assessment/Plan All Active Problems (Last Reviewed 12/09/20 @ 13:06 by Staci Daniels) Syncope and collapse (Acute) Exertional dyspnea (Acute) Intractable migraine (Acute) History of arthroscopy of right knee (Acute) Metastatic disease (Acute) Malignant neoplasm of upper-outer quadrant of right breast, estrogen receptor positive (Resolved) The patient is a 35 y/o F w/ PMHx: Morbid Obesity, Hx Breast s/p BL mastectomy 10/2015 with reconstruction, HTN, Allergic Rhinitis, Anxiety and Depression who presents to the [facility] ED on 12/13/20 with history of syncopal events, pacifically noting multiple episodes over the last 3 days with initial onset of room spinning with sensation of near syncope eventually passing out without prodrome aside this w/ quick recovery within seconds without confusion with recent exertional dyspnea, BL LE edema and onset migraine upon ED presentation. 1. Syncopal Event: Unclear etiology, EKG in ED w/ sinus rhythm without evidence of acute ischemia, initial trop normal. Will admit to PCU, place on a monitored bed to assure no acute myocardial infarction with serial cardiac enzymes and EKGs. Will maintain on fall precautions, obtain ECHO, obtain carotid US, given history may need to consider MRI brain pending further evaluation. PT/OT consultation to ascertain stability and discharge needs. 2. Recent Exertional Dyspnea: CT outpatient with poor bolus timing however d- dimer normal level, will maintain on telemetry, cycle cardiac enzymes, will consider anginal equivalent and if repeat serial cardiac enzymes and EKGs remain unremarkable will pursue a.m. stress testing in addition to ongoing #1 evaluation. 3. Acute Persistent Intractable Migraine w/ Hx Migraines: Patient while in the ED with onset migraine, throbbing, light and sound sensitivity, ongoing, given severity will initiate IV VPA 500mg Q6 hours, IV Decadron 4mg Q6 hours, IV Toradol 15 mg Q8 hours and PO Neurontin 100mg TID with meals. 4. BL LE Edema, Weight gain: Duplex US pending, CTPA was performed but poor bolus timing, d-dimer as noted was not marked appearing but patient and family very eager for further evaluation and noted prior history of DVT. BNP normal. ECHO as noted requested. Continue evaluations as noted above. 5. Hypokalemia: Admission K+ 3.4, magnesium level requested, supplementation given, repeat level in AM. 6. Hypertension: Continue home regimen including Lasix, lisinopril with hold parameters as needed, PRN hydralazine. 7. Anxiety and depression: We will continue patient home mirtazapine, fluoxetine regimen 8. Morbid Obesity: Weight loss and lifestyle changes encouraged, nutrition consulted. 9. History of breast cancer: Patient status post bilateral mastectomy with reconstructive surgery 2016, BRCA-2 positive, considered in remission, continue Arimidex regimen. 10. Allergic rhinitis: We will continue patient home cetirizine regimen. 11. DVT prophylaxis: SCDs, Lovenox. OBSV E&M: 09457 Initial observation care L3
--- NOTE | 2020-12-13 22:06 | ED.RN ---
PT WAS ASSISTED TO BEDSIDE COMMODE TO URINATE AND TO OBTAIN SAMPLE. PT ASKED IF THIS NURSE WOULD BE ABLE TO STEP OUT WHILE URINATING. PT'S REPORTS THAT HE WOULD WATCH PT DUE TO HER SYNCOPAL EPISODE. PT INSTRUCTED TO PUSH CALL LIGHT WHEN READY TO GET OFF THE COMMODE. PT AND PT'S VOICE UNDERSTANDING. PT'S CALLED OUT STATING THAT PT WAS ON THE FLOOR. HE REPORTED THAT WHEN STANDING UP TO PULL UP HER UNDERWEAR PT PASSED OUT AND HE ASSISTED HER TO FLOOR. PT WAS AWAKE AND ORIENTED WHEN THIS NURSE ENTERED THE ROOM. PT ASSISTED BACK TO BED. PT DENIED INJURY FROM FALL. DR BHAT AND PT'S NURSE INFORMED OF EVENT.
[2020-12-13 22:07] VITALS: BP 148/89; PULSE 89; RESP 16; O2SAT 95
[2020-12-13 22:34] VITALS: BP 148/89; PULSE 89; RESP 16; TEMP 37.2; O2SAT 95
[2020-12-13] MEDS: Acetaminophen 500 MG Tablet 1000 MG PO (22:38)
--- NOTE | 2020-12-13 22:52 | ECHOD_ITS ---
Reason For Study: Syncope Procedure This was a 2D Doppler, Color Flow transthoracic echocardiogram. Myocardial strain analysis was performed in this exam to aid in the assessment of cardiac function. The exam was of adequate technical quality. Exam performed portable in patient room. Left Ventricle Normal LV size. Left ventricular systolic function is normal. The estimated ejection fraction is 70 %. The global longitudinal strain = -21 % (normal). No evidence for diastolic dysfunction. No regional wall motion abnormalities noted. Right Ventricle Normal RV size. Normal systolic function. Atria Normal left atrium. Normal right atrium. No doppler evidence for ASD. Mitral Valve There is no mitral annular calcification. Normal mitral valve. Trivial mitral valve insufficiency. Tricuspid Valve Normal tricuspid valve. Trivial tricuspid valve insufficiency. Right ventricular systolic pressure estimated to be 30 mmHg. Aortic Valve Trisinus/trileaflet aortic valve. Normal aortic valve. Pulmonic Valve The pulmonic valve is not well visualized. Great Vessels Normal sized aortic root. Pericardium/Pleural No pericardial effusion. MMode/2D Measurements & Calculations LVIDd: 4.6 cm IVSd: 0.95 cm Ao root diam: 2.6 cm LVIDs: 2.2 cm LVPWd: 1.1 cm RVDd: 2.7 cm FS: 51.6 % LAV(MOD-bp): 25.1 ml LVAd ap4: 19.6 cm2 SV(MOD-sp4): 27.4 ml LAV(MOD-bp) Indexed: 10.9 ml/m2 LVLd ap4: 7.4 cm LAV(MOD-sp2): 25.3 ml EDV(MOD-sp4): 42.2 ml LAV(MOD-sp4): 24.8 ml EDV(sp4-el): 43.8 ml LVAs ap4: 9.6 cm2 LVLs ap4: 5.6 cm ESV(MOD-sp4): 14.8 ml ESV(sp4-el): 14.2 ml EF(MOD-sp4): 64.8 % EF(sp4-el): 67.6 % SV(sp4-el): 29.6 ml LA A4 area: 12.3 cm2 LA dimension(2D): 4.0 cm RA A4 area: 7.7 cm2 Doppler Measurements & Calculations MV E max bhavik: 59.0 cm/sec Lat Peak E' Bhavik: 7.6 cm/sec Med Peak E' Bhavik: 6.7 cm/sec MV A max bhavik: 69.8 cm/sec E/E' lat: 7.8 E/E' med: 8.8 MV E/A: 0.85 Ao V2 max: 171.4 cm/sec LV V1 max: 117.0 cm/sec PA V2 max: 112.7 cm/sec Ao max P.8 mmHg LV V1 max P.5 mmHg Ao V2 mean: 118.6 cm/sec Ao mean P.2 mmHg Ao V2 VTI: 28.0 cm TR max bhavik: 258.1 cm/sec TR max P.6 mmHg ECHO/Echo Complete Interpretation Summary Left ventricular systolic function is normal. The estimated ejection fraction is 70 %. The global longitudinal strain = -21 % (normal). Trivial mitral valve insufficiency. Trivial tricuspid valve insufficiency. Right ventricular systolic pressure estimated to be 30 mmHg. No evidence for diastolic dysfunction. Ordering Physician: Ronel Urena Referring Physician: Alvaro Gonzalez Performed By: Samira Boggs, PRISCA, RVT
[2020-12-13 22:57] VITALS: PULSE 81; BMI 53.1; BMI 53.5
[2020-12-13 22:58] VITALS: BP 132/79; BP 145/94; PULSE 86; PULSE 94
--- NOTE | 2020-12-13 23:08 | VDLE_ITS ---
Reason For Study: SWELLING RIGHT LEFT GSV is normal. GSV is normal. CFV is compressible, spontaneous, phasic, CFV is compressible, spontaneous, phasic, competent and demonstrates normal competent, and demonstrates normal augmentation. augmentation. FV is compressible, spontaneous, phasic, FV is compressible, spontaneous, phasic, competent and demonstrates normal competent and demonstrates normal augmentation. augmentation. POP V is compressible, spontaneous, phasic, POP V is compressible, spontaneous, phasic, competent and demonstrates normal competent and demonstrates normal augmentation. augmentation. T/P Trunk is compressible. T/P Trunk is compressible. PTV is compressible. PTV is compressible. RT PerV is compressible. LT PerV is compressible. Procedure This is a venous duplex using B-mode, color flow and spectral Doppler. Exam performed in department. The study was technically difficult. Due to body habitus. A preliminary report was called and/or faxed to [facility] @ 10:40 am. VL/Venous Duplex US - Herminio Extrem Interpretation Summary No evidence for acute deep venous thrombosis bilateral lower extremities with p atent and compressible bilateral great saphenous veins. Technically difficult procedure s econdary to body habitus Ordering Physician: Ronel Urena Referring Physician: Alvaro Gonzalez Performed By: Lilli Huertas, RDCS, RVT
[2020-12-13] MEDS: Ketorolac 15 MG/ML Vial IV (23:35)
[2020-12-13] MEDS: Potassium Chloride Oral Tablet 20 MEQ 40 MEQ PO (23:36)
[2020-12-13] MEDS: dexAMETHasone 4 MG/ML Vial IV (23:36)
[2020-12-13] MEDS: proCHLORPERazine 10 MG/2 ML Vial 5 MG IV (23:53)
[2020-12-14] VITALS (11 sets, daily range): BP systolic 123–149; BP diastolic 53–78; PULSE 79–106; RESP 18–28; TEMP 36.6; O2SAT 92–96
[2020-12-14] MEDS: Temazepam 15 MG Capsule PO (00:04)
[2020-12-14] MEDS: traMADol 50 MG Tablet PO ×3 (00:04→16:29)
[2020-12-14 02:36] LABS: Absolute Lymphocyte Count 2.02 X10^3/uL (0.83-4.51); Absolute Neutrophil Count 6.7 X10^3/uL (2.0-7.7); Basophil# 0.05 X10^3/uL; Basophil% 0.5 % (0-1); Eosinophil# 0.12 X10^3/uL; Eosinophils% 1.3 % (0-5); Hematocrit 42.3 % (37-47); Hemoglobin 14.1 g/dL (12.0-15.0); Lymphocyte # 2.02 X10^3/ul (0.83-4.51); Lymphocyte % 21.7 % (19-41); Mean Corp Hgb Conc 33.3 g/dL (32-36); Mean Corpuscular Hgb 28.8 pg (27.0-32.0); Mean Corpuscular Volume 86.3 fL (81-99); Monocyte# 0.34 X10^3/uL; Monocyte% 3.7 % (0-10); NRBC Flagged by Analyzer 0 % (0-5); Neutrophil # 6.69 X10^3/uL (2.7-7.7); Neutrophil % 71.9 % (47-70); Platelet Count 309 K/mm3 (150-450); RBC Distribution Width SD 40.7 fl (35.1-43.9); White Blood Count 9.3 K/mm3 (4.4-11.0)
[2020-12-14 03:02] LABS: ALB/GLOB Ratio 0.8 RATIO (0.9-2.4); AST(SGOT) 15 U/L (15-37); Alanine Aminotransfer ALT/SGPT 29 U/L (13-56); Albumin, Serum 3.3 g/dL (3.2-5.0); Alkaline Phosphatase 117 U/L (45-117); Anion Gap 5 (5-15); BUN 22 mg/dL (7-18); BUN/Creat Ratio 25.6 RATIO (10-20); Calcium,Total 8.7 mg/dL (8.5-10.1); Chloride 107 mmol/L (98-107); Creatinine, Serum 0.86 mg/dL (0.55-1.02); EST Glomerular Filtration Rate 80 mL/min (>60); Est Glom Filt Rate - Afr Amer 96 mL/min (>60); Estimated Creatinine Clearance 75.53 ml/min; Glucose 128 mg/dL (74-106); Potassium 4.4 mmol/L (3.5-5.1); Protein, Total 7.3 g/dL (6.4-8.2); Sodium Level 137 mmol/L (136-145)
[2020-12-14] MEDS: dexAMETHasone 4 MG/ML Vial IV ×2 (05:24→11:03)
[2020-12-14] MEDS: Ketorolac 15 MG/ML Vial IV (05:24)
[2020-12-14] MEDS: proCHLORPERazine 10 MG/2 ML Vial 5 MG IV ×3 (05:33→16:29)
--- NOTE | 2020-12-14 05:55 | CDU_ITS ---
Reason For Study: syncope Rt. Velocities/BP Lt. Velocities/BP Prox CCA 91.7/21.3 cm/sec. Prox CCA 109.9/20.0 cm/sec. Mid CCA 73.4/17.3 cm/sec. Mid CCA 89.5/16.4 cm/sec. Dist CCA 81.2/21.3 cm/sec. Dist CCA 82.9/20.3 cm/sec. Prox ICA 67.7/18.1 cm/sec. Prox ICA 63.9/18.9 cm/sec. Mid ICA 83.3/32.5 cm/sec. Mid ICA 9+7.7/27.8 cm/sec. Dist ICA 63.8/23.3 cm/sec. Dist ICA 85.5/24.1 cm/sec. Rt. ICA/CCA = 83.3/91.7=0.9. Lt. ICA/CCA = 97.7/109.9=0.9. Prox ECA 100.8/14.7 cm/sec. Prox ECA 116.2/19.4 cm/sec. Rt. Vert. 55.9/8.7 cm/sec. Lt. Vert. 72.0/16.7 cm/sec. Right Extracranial There is homogeneous, smooth atherosclerotic plaque noted in the right common carotid artery. There is no significant atherosclerotic plaque noted in the right internal carotid artery. There is no significant atherosclerotic plaque noted in the right external carotid artery. Antegrade flow is noted in the right vertebral artery. Left Extracranial There is intimal thickening but no significant atherosclerotic plaque noted in the left common carotid artery. There is intimal thickening but no significant atherosclerotic plaque noted in the left internal carotid artery. There is no significant atherosclerotic plaque noted in the left external carotid artery. Antegrade flow is noted in the left vertebral artery. Procedure Carotid Duplex 17226. Exam performed in department. VL/Carotid Duplex Ultrasound Interpretation Summary No hemodynamically significant plaque or stenosis bilateral extracranial corporate strategy intern al carotid arteries with less than 50% stenosis bilaterally Less than 50% stenosis bilateral external carotid arteries Patent and antegrade vertebrals bilaterally Ordering Physician: Ronel Urena Referring Physician: Alvaro Gonzalez Performed By: Lilli Huertas, PRISCA, RVT
--- NOTE | 2020-12-14 05:55 | EKG12_ITS ---
Test Reason : AM EKG Blood Pressure : / mmHG Vent. Rate : 087 BPM Atrial Rate : 087 BPM P-R Int : 150 ms QRS Dur : 084 ms QT Int : 390 ms P-R-T Axes : 043 058 055 degrees QTc Int : 469 ms Normal sinus rhythm Normal ECG Confirmed by KAYLEE YOON, LUZ MARINA ([id number]), land management forester KALI ESCALANTE ([id number]) on 12/16/2020 9:02:33 AM Referred By: VIKAS Confirmed By:LUZ MARINA PAGE MD
--- NOTE | 2020-12-14 09:59 | STRESSREP ---
Stress Test Report Date: 12-14-2020 Procedure: Pharmacologic stress nuclear imaging study Indications: Syncope; dyspnea on exertion Consent: Per the patient Procedure: The patient underwent pharmacologic (Regadenoson 0.4mg ) evaluation with a peak heart rate of 115 beats per minute (62%predicted maximal heart rate) and a peak blood pressure of 132/78 mmHg. The baseline ECG demonstrated sinus rhythm. The peak pharmacologic ECG demonstrated no obvious ECG changes. There was a rare PAC during recovery. There was no complaint of chest discomfort during pharmacologic infusion or recovery. The examination was discontinued secondary to completion of protocol. Impression: 1. Pharmacologic (Regadenoson) evaluation 2. Peak pharmacologic ECG with no obvious ECG changes. 3. There was a rare PAC during recovery. 4. Nuclear images pending Myocardial perfusion imaging study: Technique: The patient was injected with 15.0 millicuries of technetium 99m Cardiolite and subsequently rest SPECT Cardiolite nuclear imaging was obtained in the horizontal long, vertical long, and short axis views. The patient underwent pharmacologic (Regadenoson) evaluation with a peak heart rate of 115 beats per minute (62% percent predicted maximal heart rate) and a peak blood pressure of 132/78 mmHg. The patient was injected with 45.0 millicuries of technetium 99m Cardiolite and subsequently stress SPECT Cardiolite nuclear imaging was obtained in the horizontal long, vertical long, and short axis views. A gated Cardiolite study at peak stress was obtained. Interpretation: Rest and stress SPECT Cardiolite nuclear imaging status post realignment, normalization, and attenuation correction demonstrate normal perfusion. There is end systolic thickening and brightening. The gated Cardiolite study demonstrates myocardial thickening and inward wall motion. The reported LVEF is 76%. Impression: 1. Rest and stress SPECT Cardiolite nuclear imaging demonstrate relative uniform tracer uptake and myocardial perfusion appearing within normal limits. 2. The gated Cardiolite study reports an LVEF of 76%. This note was generated with Quillation software. It may contain incorrect words, spelling, and punctuation that were not noted in checking the note before signing.
[2020-12-14] MEDS: Pregabalin 75 MG Capsule PO (10:47)
[2020-12-14] MEDS: Gabapentin 100 MG Capsule PO ×3 (10:47→16:29)
[2020-12-14] MEDS: Potassium Chloride Oral Tablet 20 MEQ PO (10:47)
[2020-12-14] MEDS: Furosemide 20 MG Tablet PO (10:47)
[2020-12-14] MEDS: Lisinopril 10 MG Tablet PO (10:47)
[2020-12-14] MEDS: FLUoxetine 20 MG Capsule 40 MG PO (10:47)
[2020-12-14] MEDS: Famotidine 20 MG Tablet PO (10:48)
[2020-12-14] MEDS: Enoxaparin 40 MG/0.4 ML Syringe SC (10:48)
--- NOTE | 2020-12-14 11:05 | MRI_ITS ---
STUDY: MRI BRAIN WITH AND WITHOUT CONTRAST REASON FOR EXAM: Female, 35 years old. Syncope -- recurrent syncope, migraines, cancer hx TECHNIQUE: Standardized multiplanar fat and water weighted pulse sequences were obtained. dotarem 28ml iv was administered for the contrast portion of the examination. COMPARISON: 06/07/2018 FINDINGS: Normal size of the ventricles and extra-axial spaces for the patient''s age. Normal white matter tracts of the supratentorial brain. There is no evidence for recent intracranial ischemia or other cause of cytotoxic edema on diffusion weighted imaging (DWI). Normal T2* images of the brain without demonstrated susceptibility artifact. There is no demonstrated hemosiderin stain. Normal bilateral basal ganglia. Normal thalami. There is no extra-axial fluid accumulation. Normal flow voids within the major intracranial circulation suggesting patency by spin echo criteria. Normal venous enhancement. There is no enhancing intra-axial or extra-axial abnormality. Normal sella turcica, pituitary gland, infundibular stalk, optic chiasm and hypothalamus. Normal tectal plate and pineal gland. Normal midbrain, veronica and medulla. Normal cerebellum. Normal basal cisterns. Normal bilateral temporal bones. Normal bilateral internal auditory canals. No demonstrated orbital abnormality, within the constraints of a routine brain study. Opacification of the left maxillary sinus consistent with chronic sinusitis. Normal calvarium and skull base. Normal visualized soft tissue structures. Normal visualized upper cervical spine. MRI/Brain W/WO Contrast IMPRESSION: Normal unenhanced and enhanced MRI of the brain. Electronically Signed: Dameon Lui MD at 16:19 EDT Tel , Service support ,
[2020-12-14] MEDS: Acetaminophen/Butalbital/Caffe 1 Tablet PO (13:35)
[2020-12-14] MEDS: DiphenhydrAMINE 50 MG/ML Syringe IV (13:36)
[2020-12-14] MEDS: LORazepam 2 MG/ML Syringe 0.5 MG IV (14:45)
--- NOTE | 2020-12-14 15:06 | DCINST_ITS ---
- Discharge Diagnoses Current Active Problems: Current Active and Chronic Problems (Last Reviewed 12/09/20 @ 13:06 by Staci Daniels) Syncope and collapse (Acute) Exertional dyspnea (Acute) Intractable migraine (Acute) Morbid obesity (Chronic) Anxiety and depression (Chronic) Neuropathy (Chronic) Seasonal allergies (Chronic) Hypertension (Chronic) History of breast cancer (Chronic) You will use the following diet at home:: Calorie/Carbohydrate Controlled (specify 1200, 1400, etc) Discharge Activity: Return to Normal Activity Call your doctor if you observe: Shortness of breath, Dizziness, Fainting spells, Chest pain Allergies/Adverse Reactions: Allergies corn Allergy (Severe, Verified 12/09/20 13:06) swelling Beef Containing Products Allergy (Mild, Verified 12/09/20 13:06) other upset stomach azithromycin Allergy (Verified 12/09/20 13:06) Anaphylaxis chlorhexidine [From Hibiclens] Allergy (Verified 12/09/20 13:06) Hives iodine Allergy (Verified 12/11/20 13:52) Hives burning povidone-iodine [From Betadine] Allergy (Verified 12/09/20 13:06) Hives shellfish derived Allergy (Verified 12/11/20 13:52) Anaphylaxis soap [From Betadine] Allergy (Verified 12/09/20 13:06) Hives sumatriptan Allergy (Verified 12/09/20 13:06) Rash morphine Adverse Reaction (Verified 12/09/20 13:06) Other HEADACHE, AGITATION Medications to take at Discharge Anastrozole [Arimidex] 1 mg PO QHS 08/15/19 pregabalin 75 mg capsule 75 mg PO BID #60 cap 11/19/20 tramadol 50 mg tablet 50 mg PO Q12H PRN #14 tablet 12/09/20 Cetirizine HCl 10 mg PO PRN PRN 12/11/20 Epi Pen [Epi-Pen] 0.3 mg IM X1 PRN 12/11/20 Fluoxetine HCl 40 mg PO BID 12/11/20 Furosemide [Lasix] 20 mg PO QAM 12/11/20 Lisinopril 10 mg PO DAILY 12/11/20 Meloxicam 7.5 mg PO DAILY PRN 12/11/20 Mirtazapine 15 mg PO QHS 12/11/20 Potassium Chloride [K-Tab ER] 20 meq PO BID 12/11/20 Prednisone [Deltasone] 40 mg PO DAILY #10 tablet 12/11/20 Orders to be completed after discharge: Cardiac Holter Monitor, Set-Up [[facility]] Location: None Selected Primary Care Physician: Alvaro Gonzalez MD [Primary Care Provider] - Please follow up with your Primary Care Physician in: 1 Week, May see CERTIFIED NEURODIAGNOSTIC TECHNOLOGIST Test Results: Test results from this visit will be discussed in further detail at your follow- up appointment, if applicable. Please Follow Up With: Arvin Ray MD - Or Dr. Vaughn When: Call for neurology follow up for chronic migraines Proposed Discharge Date: 12/14/20
--- NOTE | 2020-12-14 15:12 | PCM.DC.SUM ---
<Teri Mejia MANAGER MEDICAL - Last Filed: 12/14/20 16:20> Discharge Date and Diagnosis - Problem List Patient Problems: Active and Suspected Problems (Last Reviewed 12/09/20 @ 13:06 by Staci Daniels) Syncope and collapse (Acute) Exertional dyspnea (Acute) Intractable migraine (Acute) Date of Admission: 12/13/20 Date of Discharge: 12/14/20 - Primary Discharge Diagnosis Acute Problems: Active Problems (Last Reviewed 12/09/20 @ 13:06 by Staci Daniels) 1. Syncope 2. Exertional dyspnea, ACS ruled out 3. Acute on chronic migraines 4. Lower extremity edema 5. Hypertension 6. Anxiety/depression 7. Morbid obesity 8. History of breast cancer 9. Allergic rhinitis - Secondary Discharge Diagnosis Chronic Problems: Chronic Problems (Last Reviewed 12/09/20 @ 13:06 by Staci Daniels) Morbid obesity (Chronic) Vitamin D deficiency (Chronic) Anxiety and depression (Chronic) Neuropathy (Chronic) Seasonal allergies (Chronic) Hypertension (Chronic) History of breast cancer (Chronic) Hospital Course and Treatment Imaging Results: Diagnostic Data Brain CT 12/13/20 21:00 IMPRESSION: Normal unenhanced CT scan of the brain. Electronically Signed: Ky Osborne MD at 21:43 EDT , Service support , Echocardiogram 12/13/20 22:52 Interpretation Summary Left ventricular systolic function is normal. The estimated ejection fraction is 70 %. The global longitudinal strain = -21 % (normal). Trivial mitral valve insufficiency. Trivial tricuspid valve insufficiency. Right ventricular systolic pressure estimated to be 30 mmHg. No evidence for diastolic dysfunction. Ordering Physician: Ronel Urena Referring Physician: Alvaro Gonzalez Performed By: Samira Boggs, RDCS, RVT Venous Doppler Study 12/13/20 23:08 Interpretation Summary No evidence for acute deep venous thrombosis bilateral lower extremities with patent and compressible bilateral great saphenous veins. Technically difficult procedure secondary to body habitus Ordering Physician: Ronel Urena Referring Physician: Alvaro Gonzalez Performed By: Lilli Huertas RDCS, RVT Carotid Duplex 12/14/20 05:55 Interpretation Summary No hemodynamically significant plaque or stenosis bilateral extracranial internal carotid arteries with less than 50% stenosis bilaterally Less than 50% stenosis bilateral external carotid arteries Patent and antegrade vertebrals bilaterally Ordering Physician: Ronel Urena Referring Physician: Alvaro Gonzalez Performed By: Lilli Huertas RDCS, RVT Operations: None Procedures: 2-D Echocardiogram, Stress test Summary of Care Provided: The patient is a 35 year old F admitted 12/13/2020 due to syncope. 1. Syncope-patient reports recurrent episodes of syncope over the past few days. No arrhythmias noted on telemetry. Cardiac work-up noted below unremarkable. Orthostatic vitals negative. MRI of brain with and without contrast pending, patient elects to be discharged home prior to results. Discussed with patient we will call her with any abnormal findings. If MRI is normal, will discharge home. 48-hour Holter monitor at discharge. Follow-up with PCP in 1 week. 2. Exertional dyspnea, ACS ruled out-troponin negative. EKG without ST-T changes. Recent outpatient chest CT with minor atelectasis. Echocardiogram demonstrates an EF of 70%, RVSP estimated to be 30 mmHg. Patient underwent nuclear stress test which was negative for ischemia. Recommend outpatient sleep study which can be arranged by PCP. 3. Acute on chronic migraines-patient received IV Toradol, IV Decadron during admission. Symptoms improved. Does not appear to be on preventative or abortive therapy. Recommend follow-up with PCP or neurology referral. 4. Lower extremity edema-duplex ultrasound negative for DVT. Recently started on Lasix with improvement in swelling. Recommend continuing current treatment with further outpatient follow-up. Echocardiogram unremarkable. 5. Hypertension-medications recently adjusted. On lisinopril, Lasix. 6. Anxiety/depression-on fluoxetine. 7. Morbid obesity-encouraged diet and lifestyle modifications. 8. History of breast cancer status post bilateral mastectomy-in remission. On Arimidex. Continue outpatient follow-up. On Lyrica for neuropathy. 9. Allergic rhinitis-on sertraline. Patient seen and examined prior to discharge. Physical assessment as noted below. Patient is stable for discharge with follow up recommendations as noted above. This patient was seen by ERAN Centeno under the supervision of Dr. Olson. Patient Problems: Active and Suspected Problems (Last Reviewed 12/09/20 @ 13:06 by Staci Daniels) Syncope and collapse (Acute) Exertional dyspnea (Acute) Intractable migraine (Acute) - Physical Exam Vitals/I&O's: Vital Signs Temp Pulse Resp BP Pulse Ox 97.9 F 102 H 28 H 123/74 H 95 12/14/20 10:45 12/14/20 14:55 12/14/20 14:55 12/14/20 14:55 12/14/20 14:55 Oxygen Delivery Method Room Air Weight: 297 lb 6.457 oz Body Mass Index (BMI) 53.1 Orthostatic Vital Signs Start: 12/13/20 22:58 Freq: q24h Status: Active Protocol: Activity Type Activity Date Activity User E-Sign Co-Sign Detail Recorded Client Recorded Date Recorded By Document 12/13/20 22:58 MY [id number] 12/13/20 22:59 MY 12/13/20 22:58 Orthostatic Vitals Sitting -Blood Pressure (90/60-120/80) 145/94 H -Extremity Use Left Arm -Pulse Rate (60-100) 94 Lying -Blood Pressure (90/60-120/80) 132/79 H -Extremity Use Left Arm -Pulse Rate (60-100) 86 Intake and Output for Last 24 Hours 12/12/20 12/13/20 12/14/20 23:59 23:59 23:59 Intake Total 1000 / 1000 565 / 565 Output Total 300 / 300 Balance 1000 / 700 265 / 265 General: Alert, Oriented x3, Cooperative HEENT: Atraumatic, PERRLA, EOMI, Normocephalic Neck: Supple, No JVD, Negative Carotid Bruits Lungs: Clear to auscultation, Normal air movement Cardiovascular: Regular rate, No murmurs Abdomen: Bowel Sounds Present, Soft, Non Tender, Non-Distended, Obese Extremities: No clubbing, No cyanosis, Capillary Refill Less than 3 Seconds, Edema - Non-pitting lower extremity edema Skin: No rashes, No breakdown Musculoskeletal: No Tenderness to Palpation of Joints or Extremities Neurological: Cranial nerves II-XII grossly intact, Neuro grossly intact Psych/Mental Status: Normal Affect, Appropriate Laboratory Results 12/13/20 20:47: WBC 10.3, RBC 5.12, Hgb 14.3, Hct 43.9, MCV 85.7, MCH 27.9, MCHC 32.6, RDW Std Deviation 41.2, RDW Coeff of Adwoa 13.2, Plt Count 339, MPV 9.2, Immature Gran % (Auto) 0.700, Neut % (Auto) 51.6, Lymph % (Auto) 37.7, Dewitt % (Auto) 6.9, Eos % (Auto) 2.4, Baso % (Auto) 0.7, Absolute Neuts (auto) 5.3, Absolute Lymphs (auto) 3.87, Nucleated RBC % 0 12/13/20 20:47: Sodium 138, Potassium 3.4 L, Chloride 103, Carbon Dioxide 28.0, Anion Gap 7, BUN 24 H, Creatinine 1.07 H, Estim Creat Clear Calc 60.70, Est GFR (MDRD) Af Amer 75, Est GFR (MDRD) Non-Af 62, BUN/Creatinine Ratio 22.4 H, Glucose 111 H, Calcium 9.0, Total Bilirubin 0.20, AST 18, ALT 33, Alkaline Phosphatase 128 H, Troponin I < 0.015, Total Protein 7.9, Albumin 3.6, Globulin 4.3 H, Albumin/Globulin Ratio 0.8 L 12/13/20 20:47: B-Natriuretic Peptide 8.3 12/13/20 20:47: Magnesium 2.0 12/13/20 20:57: Serum , Qual NEGATIVE 12/13/20 23:40: Troponin I < 0.015 12/14/20 02:30: WBC 9.3, RBC 4.90, Hgb 14.1, Hct 42.3, MCV 86.3, MCH 28.8, MCHC 33.3, RDW Std Deviation 40.7, RDW Coeff of Adwoa 13.0, Plt Count 309, MPV 9.0, Immature Gran % (Auto) 0.900, Neut % (Auto) 71.9 H, Lymph % (Auto) 21.7, Dewitt % (Auto) 3.7, Eos % (Auto) 1.3, Baso % (Auto) 0.5, Absolute Neuts (auto) 6.7, Absolute Lymphs (auto) 2.02, Nucleated RBC % 0 12/14/20 02:30: Sodium 137, Potassium 4.4, Chloride 107, Carbon Dioxide 25.0, Anion Gap 5, BUN 22 H, Creatinine 0.86, Estim Creat Clear Calc 75.53, Est GFR (MDRD) Af Amer 96, Est GFR (MDRD) Non-Af 80, BUN/Creatinine Ratio 25.6 H, Glucose 128 H, Calcium 8.7, Total Bilirubin 0.20, AST 15, ALT 29, Alkaline Phosphatase 117, Total Protein 7.3, Albumin 3.3, Globulin 4.0, Albumin/Globulin Ratio 0.8 L 12/14/20 02:30: Troponin I < 0.015 Current Medications Acetaminophen (Acetaminophen 325 Mg Tablet) 650 mg PO Q6H PRN PRN PRN Reason: Pain Score 1-10/Temp > 100.7 F Al Hydroxide/Mg Hydroxide (Mag Hydrox/Al Hydrox/Simeth 30 Ml Udc) 30 ml PO Q6H PRN PRN PRN Reason: Gastric Burning Albuterol Sulfate (Albuterol 2.5 Mg/3 Ml Vial.Neb.) 2.5 mg INHALATION Q2H PRN PRN PRN Reason: Dyspnea, wheezing Anastrozole (Anastrozole 1 Mg Tablet) 1 mg PO QHS [facility] Enoxaparin Sodium (Enoxaparin 40 Mg/0.4 Ml Syringe) 40 mg SC DAILY [facility] Last Admin: 12/14/20 10:48 Dose: 40 mg Documented by: Famotidine (Famotidine 20 Mg Tablet) 20 mg PO BID [facility] [place] Last Admin: 12/14/20 10:48 Dose: 20 mg Documented by: Fluoxetine HCl (Fluoxetine 20 Mg Capsule) 40 mg PO BID [facility] [place] Last Admin: 12/14/20 10:47 Dose: 40 mg Documented by: Furosemide (Furosemide 20 Mg Tablet) 20 mg PO QAM [facility] Last Admin: 12/14/20 10:47 Dose: 20 mg Documented by: Gabapentin (Gabapentin 100 Mg Capsule) 100 mg PO TIDCM [facility] Last Admin: 12/14/20 13:36 Dose: 100 mg Documented by: Guaifenesin (Guaifenesin 10 Ml Udc (200mg/10ml)) 20 ml PO Q4H PRN PRN PRN Reason: COUGH Hydralazine HCl (Hydralazine 20 Mg/Ml Vial) 10 mg IV Q4H PRN PRN PRN Reason: SBP > 160 Iopamidol (Contrast Allergy Safety Check) 0 ml IV X1 [facility] [place] Last Admin: 12/14/20 11:30 Dose: Not Given Documented by: Lisinopril (Lisinopril 10 Mg Tablet) 10 mg PO DAILY [facility] Last Admin: 12/14/20 10:47 Dose: 10 mg Documented by: Loratadine (Loratadine 10 Mg Tablet) 10 mg PO DAILY PRN PRN PRN Reason: allergy symptoms Magnesium Hydroxide (Magnesium Hydroxide 30 Ml Udc) 30 ml PO DAILY PRN PRN PRN Reason: Constipation Methylprednisolone (Methylprednisolone 40 Mg/Ml Vial) 40 mg IV Q4H [facility] [place] Last Admin: 12/14/20 11:54 Dose: Not Given Documented by: Mirtazapine (Mirtazapine 15 Mg Tablet) 15 mg PO QHS [facility] Nitroglycerin (Nitroglycerin (Inpatient Use) 0.4 Mg Tab.Subl) 0.4 mg SL Q5M PRN PRN Reason: CARDIAC/CHEST PAIN Ondansetron HCl (Ondansetron 4 Mg/2 Ml Vial) 4 mg IV Q8H PRN PRN PRN Reason: NAUSEA/VOMITING Potassium Chloride (Potassium Chloride Oral Tablet 20 Meq) 20 meq PO BID [facility] Last Admin: 12/14/20 10:47 Dose: 20 meq Documented by: Pregabalin (Pregabalin 75 Mg Capsule) 75 mg PO BID [facility] Last Admin: 12/14/20 10:47 Dose: 75 mg Documented by: Prochlorperazine Edisylate (Prochlorperazine 10 Mg/2 Ml Vial) 5 mg IV Q4H PRN PRN PRN Reason: Breakthrough Nausea/Vomiting Last Admin: 12/14/20 10:56 Dose: 5 mg Documented by: Psyllium Hydrophilic Mucilloid (Psyllium 1 Packet) 1 packet PO DAILY PRN PRN PRN Reason: Constipation Senna/Docusate Sodium (Senna/Docusate Sodium 1 Tablet) 2 tablet PO BID PRN PRN PRN Reason: Constipation Temazepam (Temazepam 15 Mg Capsule) 15 mg PO QHS PRN PRN PRN Reason: INSOMNIA Last Admin: 12/14/20 00:04 Dose: 15 mg Documented by: Throat Lozenges (Benzocaine/Menthol 1 Lozenge) 1 lozenge MUCOUS MEM Q2H PRN PRN PRN Reason: SORE THROAT Tramadol HCl (Tramadol 50 Mg Tablet) 50 mg PO BID PRN PRN PRN Reason: Pain Score 6-10 Last Admin: 12/14/20 10:55 Dose: 50 mg Documented by: Discharge Diet: Low fat/ Low Cholesterol, Carb Control Diet Discharge Activity: Return to Normal Activity Call your doctor if you observe: Shortness of breath, Dizziness, Fainting spells, Chest pain Home Medications: Medications to take at Discharge Anastrozole [Arimidex] 1 mg PO QHS 08/15/19 pregabalin 75 mg capsule 75 mg PO BID #60 cap 11/19/20 tramadol 50 mg tablet 50 mg PO Q12H PRN #14 tablet 12/09/20 Cetirizine HCl 10 mg PO PRN PRN 12/11/20 Epi Pen [Epi-Pen] 0.3 mg IM X1 PRN 12/11/20 Fluoxetine HCl 40 mg PO BID 12/11/20 Furosemide [Lasix] 20 mg PO QAM 12/11/20 Lisinopril 10 mg PO DAILY 12/11/20 Meloxicam 7.5 mg PO DAILY PRN 12/11/20 Mirtazapine 15 mg PO QHS 12/11/20 Potassium Chloride [K-Tab ER] 20 meq PO BID 12/11/20 Prednisone [Deltasone] 40 mg PO DAILY #10 tablet 12/11/20 Other Amb Orders: Cardiac Holter Monitor, Set-Up [[facility]] Location: None Selected Primary Care Physician: Alvaro Gonzalez MD [Primary Care Provider] - Please follow up with your Primary Care Physician in: 1 Week, May see MANAGER MEDICAL Please Follow Up With: Arvin Ray MD - Or Dr. Vaughn When: Call for neurology follow up for chronic migraines Disposition: Home Minutes spent on discharge:: 35 Patient Condition:: Stable Medical Necessity - Tobacco Use Smoking Status: Never smoker Meaningful Use Info Meaningful Use Diagnoses (Choose all that apply): None applicable <Jaime Olson F - Last Filed: 12/14/20 16:50> Discharge Date and Diagnosis - Primary Discharge Diagnosis Acute Problems: Active Problems (Last Reviewed 12/09/20 @ 13:06 by Staci Daniels) Syncope and collapse (Acute) Exertional dyspnea (Acute) Intractable migraine (Acute) - Secondary Discharge Diagnosis Chronic Problems: Chronic Problems (Last Reviewed 12/09/20 @ 13:06 by Staci Daniels) Morbid obesity (Chronic) Vitamin D deficiency (Chronic) Anxiety and depression (Chronic) Neuropathy (Chronic) Seasonal allergies (Chronic) Hypertension (Chronic) History of breast cancer (Chronic) Hospital Course and Treatment Imaging Results: 12/14/20 11:05 MRI Brain [Brain W/WO Contrast] [MRI] Stat Summary of Care Provided: The patient is a 35 year old F [] - Physical Exam Vitals/I&O's: Vital Signs Temp Pulse Resp BP Pulse Ox 97.9 F 102 H 20 H 149/53 H 92 12/14/20 10:45 12/14/20 15:22 12/14/20 15:22 12/14/20 15:10 12/14/20 15:22 Oxygen Delivery Method Room Air Weight: 297 lb 6.457 oz Body Mass Index (BMI) 53.1 Orthostatic Vital Signs Start: 12/13/20 22:58 Freq: q24h Status: Active Protocol: Activity Type Activity Date Activity User E-Sign Co-Sign Detail Recorded Client Recorded Date Recorded By Document 12/13/20 22:58 MY [id number] 12/13/20 22:59 MY 12/13/20 22:58 Orthostatic Vitals Sitting -Blood Pressure (90/60-120/80) 145/94 H -Extremity Use Left Arm -Pulse Rate (60-100) 94 Lying -Blood Pressure (90/60-120/80) 132/79 H -Extremity Use Left Arm -Pulse Rate (60-100) 86 Intake and Output for Last 24 Hours 12/12/20 12/13/20 12/14/20 23:59 23:59 23:59 Intake Total 1000 / 1000 565 / 565 Output Total 300 / 300 Balance 1000 / 700 265 / 265 Laboratory Results 12/13/20 20:47: WBC 10.3, RBC 5.12, Hgb 14.3, Hct 43.9, MCV 85.7, MCH 27.9, MCHC 32.6, RDW Std Deviation 41.2, RDW Coeff of Adwoa 13.2, Plt Count 339, MPV 9.2, Immature Gran % (Auto) 0.700, Neut % (Auto) 51.6, Lymph % (Auto) 37.7, Dewitt % (Auto) 6.9, Eos % (Auto) 2.4, Baso % (Auto) 0.7, Absolute Neuts (auto) 5.3, Absolute Lymphs (auto) 3.87, Nucleated RBC % 0 12/13/20 20:47: Sodium 138, Potassium 3.4 L, Chloride 103, Carbon Dioxide 28.0, Anion Gap 7, BUN 24 H, Creatinine 1.07 H, Estim Creat Clear Calc 60.70, Est GFR (MDRD) Af Amer 75, Est GFR (MDRD) Non-Af 62, BUN/Creatinine Ratio 22.4 H, Glucose 111 H, Calcium 9.0, Total Bilirubin 0.20, AST 18, ALT 33, Alkaline Phosphatase 128 H, Troponin I < 0.015, Total Protein 7.9, Albumin 3.6, Globulin 4.3 H, Albumin/Globulin Ratio 0.8 L 12/13/20 20:47: B-Natriuretic Peptide 8.3 12/13/20 20:47: Magnesium 2.0 12/13/20 20:57: Serum , Qual NEGATIVE 12/13/20 23:40: Troponin I < 0.015 12/14/20 02:30: WBC 9.3, RBC 4.90, Hgb 14.1, Hct 42.3, MCV 86.3, MCH 28.8, MCHC 33.3, RDW Std Deviation 40.7, RDW Coeff of Adwoa 13.0, Plt Count 309, MPV 9.0, Immature Gran % (Auto) 0.900, Neut % (Auto) 71.9 H, Lymph % (Auto) 21.7, Dewitt % (Auto) 3.7, Eos % (Auto) 1.3, Baso % (Auto) 0.5, Absolute Neuts (auto) 6.7, Absolute Lymphs (auto) 2.02, Nucleated RBC % 0 12/14/20 02:30: Sodium 137, Potassium 4.4, Chloride 107, Carbon Dioxide 25.0, Anion Gap 5, BUN 22 H, Creatinine 0.86, Estim Creat Clear Calc 75.53, Est GFR (MDRD) Af Amer 96, Est GFR (MDRD) Non-Af 80, BUN/Creatinine Ratio 25.6 H, Glucose 128 H, Calcium 8.7, Total Bilirubin 0.20, AST 15, ALT 29, Alkaline Phosphatase 117, Total Protein 7.3, Albumin 3.3, Globulin 4.0, Albumin/Globulin Ratio 0.8 L 12/14/20 02:30: Troponin I < 0.015 Current Medications Acetaminophen (Acetaminophen 325 Mg Tablet) 650 mg PO Q6H PRN PRN PRN Reason: Pain Score 1-10/Temp > 100.7 F Al Hydroxide/Mg Hydroxide (Mag Hydrox/Al Hydrox/Simeth 30 Ml Udc) 30 ml PO Q6H PRN PRN PRN Reason: Gastric Burning Albuterol Sulfate (Albuterol 2.5 Mg/3 Ml Vial.Neb.) 2.5 mg INHALATION Q2H PRN PRN PRN Reason: Dyspnea, wheezing Anastrozole (Anastrozole 1 Mg Tablet) 1 mg PO QHS [facility] Enoxaparin Sodium (Enoxaparin 40 Mg/0.4 Ml Syringe) 40 mg SC DAILY [facility] Last Admin: 12/14/20 10:48 Dose: 40 mg Documented by: Famotidine (Famotidine 20 Mg Tablet) 20 mg PO BID [facility] [place] Last Admin: 12/14/20 10:48 Dose: 20 mg Documented by: Fluoxetine HCl (Fluoxetine 20 Mg Capsule) 40 mg PO BID [facility] [place] Last Admin: 12/14/20 10:47 Dose: 40 mg Documented by: Furosemide (Furosemide 20 Mg Tablet) 20 mg PO QAM [facility] Last Admin: 12/14/20 10:47 Dose: 20 mg Documented by: Gabapentin (Gabapentin 100 Mg Capsule) 100 mg PO TIDCM [facility] Last Admin: 12/14/20 16:29 Dose: 100 mg Documented by: Guaifenesin (Guaifenesin 10 Ml Udc (200mg/10ml)) 20 ml PO Q4H PRN PRN PRN Reason: COUGH Hydralazine HCl (Hydralazine 20 Mg/Ml Vial) 10 mg IV Q4H PRN PRN PRN Reason: SBP > 160 Iopamidol (Contrast Allergy Safety Check) 0 ml IV X1 [facility] [place] Last Admin: 12/14/20 11:30 Dose: Not Given Documented by: Lisinopril (Lisinopril 10 Mg Tablet) 10 mg PO DAILY [facility] [place] Last Admin: 12/14/20 10:47 Dose: 10 mg Documented by: Loratadine (Loratadine 10 Mg Tablet) 10 mg PO DAILY PRN PRN PRN Reason: allergy symptoms Magnesium Hydroxide (Magnesium Hydroxide 30 Ml Udc) 30 ml PO DAILY PRN PRN PRN Reason: Constipation Methylprednisolone (Methylprednisolone 40 Mg/Ml Vial) 40 mg IV Q4H [facility] [place] Last Admin: 12/14/20 16:26 Dose: Not Given Documented by: Mirtazapine (Mirtazapine 15 Mg Tablet) 15 mg PO QHS [facility] [place] Nitroglycerin (Nitroglycerin (Inpatient Use) 0.4 Mg Tab.Subl) 0.4 mg SL Q5M PRN PRN Reason: CARDIAC/CHEST PAIN Ondansetron HCl (Ondansetron 4 Mg/2 Ml Vial) 4 mg IV Q8H PRN PRN PRN Reason: NAUSEA/VOMITING Potassium Chloride (Potassium Chloride Oral Tablet 20 Meq) 20 meq PO BID [facility] [place] Last Admin: 12/14/20 10:47 Dose: 20 meq Documented by: Pregabalin (Pregabalin 75 Mg Capsule) 75 mg PO BID [facility] [place] Last Admin: 12/14/20 10:47 Dose: 75 mg Documented by: Prochlorperazine Edisylate (Prochlorperazine 10 Mg/2 Ml Vial) 5 mg IV Q4H PRN PRN PRN Reason: Breakthrough Nausea/Vomiting Last Admin: 12/14/20 16:29 Dose: 5 mg Documented by: Psyllium Hydrophilic Mucilloid (Psyllium 1 Packet) 1 packet PO DAILY PRN PRN PRN Reason: Constipation Senna/Docusate Sodium (Senna/Docusate Sodium 1 Tablet) 2 tablet PO BID PRN PRN PRN Reason: Constipation Temazepam (Temazepam 15 Mg Capsule) 15 mg PO QHS PRN PRN PRN Reason: INSOMNIA Last Admin: 12/14/20 00:04 Dose: 15 mg Documented by: Throat Lozenges (Benzocaine/Menthol 1 Lozenge) 1 lozenge MUCOUS MEM Q2H PRN PRN PRN Reason: SORE THROAT Tramadol HCl (Tramadol 50 Mg Tablet) 50 mg PO BID PRN PRN PRN Reason: Pain Score 6-10 Last Admin: 12/14/20 16:29 Dose: 50 mg Documented by: Addendum: Dr. Olson I personally examined the patient and reviewed the chart. I agree with the above. 35-year-old female with a previous history of breast cancer status post mastectomy on Arimidex presents to the hospital with dyspnea on exertion as well as syncope. She had an echo which was unremarkable with a normal EF, MRI was negative for a stroke or even any metastatic disease, carotid ultrasounds had a less than 50% stenosis bilaterally, and lower extremity Dopplers were negative for DVT. She states that she has gained 20pounds and that she has been eating more, this is likely contributing to her dyspnea on exertion. She also was transitioned to Lasix and lisinopril recently which is helped with her swelling as she was having side effects from Norvasc. Would recommend that she follow-up with her PCP and potentially discontinue her Lasix and continue with just her lisinopril for now potentially add beta-jonathan as an outpatient but this can also cause issue with syncope. Currently it sounds like she was having vasovagal episodes as she said most of her syncope episodes were occurring with changes in position. I discussed the plan for discharge today and she expressed understanding of the risk and benefits of going home and would like to go home today since her work-up has been negative. OBSV E&M: [id number] Observation care discharge
--- NOTE | 2020-12-14 15:38 | NURSING ---
EZIO CHARGE NURSE CALLED REPORT GIVEN
== END 2020-12-14 15:06 | disposition home or self-care (01) ==
LOC: ED 22:14 → PCU 22:32
PROVIDERS: Admitting Provider Family Medicine; Emergency Provider Emergency Medicine; PCP Internal Medicine; Visit Provider Family Medicine
DX: R55 Syncope and collapse (principal); R06.09 Other forms of dyspnea; G43.919 Migraine, unspecified, intractable, without status migrainosus; Z85.3 Personal history of malignant neoplasm of breast; Z79.899 Other long term (current) drug therapy; Z79.52 Long term (current) use of systemic steroids; E66.01 Morbid (severe) obesity due to excess calories; F41.9 Anxiety disorder, unspecified; F32.9 Major depressive disorder, single episode, unspecified; G62.9 Polyneuropathy, unspecified; I10 Essential (primary) hypertension; Z68.43 Body mass index [BMI] 50.0-59.9, adult; E87.6 Hypokalemia; J30.9 Allergic rhinitis, unspecified; R60.0 Localized edema
CPT/HCPCS: 70450; 70553; 78452; 80053; 83735; 83880; 84484; 84703; 85025; 93005; 93017; 93225; 93226; 93306; 93880; 93970; 96361; 96365; 96366; 96372; 96375; 96376; 99251; 99285; A9500; A9575; J7030; A4216; G0463; J2785

== ENCOUNTER 2020-12-14 16:55 | Outpatient (CLI) | payer OTHER, SELFPAY ==
[2020-12-13 22:57] VITALS: BMI 53.1
== END 2020-12-14 17:39 | disposition home or self-care (01) ==
LOC: PCUOUT 16:57 → PCU 16:58
PROVIDERS: PCP Internal Medicine; Visit Provider Nurse Practitioner Family
DX: R00.0 Tachycardia, unspecified (principal)
CPT/HCPCS: 93225; 93226

== ENCOUNTER 2021-09-20 10:51 | Outpatient (CLI) | payer OTHER, SELFPAY ==
--- NOTE | 2021-09-20 10:52 | CT_ITS ---
STUDY: CT ABDOMEN AND PELVIS WITHOUT CONTRAST REASON FOR EXAM: Female, 35 years old. ABD PAIN. Hematuria. History of breast cancer. RADIATION DOSAGE (If Supplied By Facility): CTDIvol = ( 23.92 ) mGy, DLP = ( 1279.12 ) mGycm TECHNIQUE: Transaxial images were obtained from the dome of the diaphragm to the symphysis pubis without oral contrast, and without intravenous contrast. Sagittal and coronal images were reconstructed. Individualized dose optimization techniques were used for this CT. COMPARISON: Comparison is made with prior examination dated 08/19/2019. FINDINGS: There is evidence of bilateral breast implants. The visualized lung bases are unremarkable. The visualized portions of the heart are within normal limits. Normal liver. Normal gallbladder and extrahepatic biliary system. Normal spleen. Normal pancreas. Normal bilateral adrenal glands. Normal right kidney. Normal left kidney. Normal visualized stomach. Normal small intestine. Normal colon. The appendix is visualized and appears normal. Normal abdominal aorta. Normal inferior vena cava. Normal retroperitoneum. Normal urinary bladder. There is absence of the uterus consistent with a prior hysterectomy. Calcified phleboliths are seen within the pelvis. Normal abdominal wall. Straightening of the normal lumbar lordosis. CT/Abdomen/Pelvis without Cont IMPRESSION: Straightening of the normal lumbar lordosis. Stable appearance of the bilateral breast implants. Electronically Signed: Eliceo Moore MD at 11:12 [facility] ,
== END 2021-09-20 23:59 | disposition short-term general hospital (02) ==
PROVIDERS: PCP Internal Medicine; Referring Provider Urology; Visit Provider Urology
DX: R31.0 Gross hematuria (principal); R10.84 Generalized abdominal pain
CPT/HCPCS: 74176; 87086; 87088

== ENCOUNTER 2022-04-09 16:18 | Emergency (ER) | payer OTHER, SELFPAY ==
[2022-04-09 16:20] VITALS: BP 154/104; PULSE 81; RESP 16; TEMP 36; O2SAT 97; BMI 51.5
--- NOTE | 2022-04-09 16:28 | ED.VIS.LOWEX ---
HPI History of Present Illness Chief Complaint: Lower Extremity Injury Detail of Chief Complaint: Right knee injury Informant: patient Narrative Narrative: Patient presents to the emergency department with injury to her right knee that occurred yesterday and then again today. Patient states last evening she was walking through the grass when she stepped in a hole and hyperextended her knee. Patient was still able to bear weight and woke up this morning was walking around when she slid and lost her balance and fell onto a hardwood floor directly onto her right knee. She complains of pain with range of motion at the knee and with walking. She still able to bear weight. Patient denies any other injuries. [facility] Medical History (Updated 04/09/22 @ 17:[address] Torey Epperson, ) Chronic pain History of breast cancer Hypertension Seasonal allergies Home Medications anastrozole 1 mg tablet 1 mg PO QHS cancer 08/15/19 [History Last Taken 12/10/20 19:30] cetirizine 10 mg tablet 10 mg PO PRN PRN allergy symptoms 12/11/20 [History Last Taken 10/06/20] epinephrine 0.3 mg/0.3 mL injection, auto-injector 0.3 mg IM X1 PRN Anaphylaxis 12/11/20 [History Last Taken Unknown] potassium chloride 20 mEq tablet,extended release 20 meq PO BID supplement 12/11/20 [History Last Taken 12/10/20 19:30] buspirone 10 mg tablet 10 mg PO TID #90 tabs 12/25/20 [Rx Last Taken Unknown] pregabalin 75 mg capsule 75 mg PO BID #60 caps 12/25/20 [Rx Last Taken Unknown] furosemide 20 mg tablet 20 mg PO QAM fluid retention #30 tabs 01/20/21 [Rx Last Taken Unknown] tizanidine 2 mg tablet 2 mg PO Q8H PRN muscle spasticity #20 tabs 04/12/21 [Rx Last Taken Unknown] fluoxetine 40 mg capsule 40 mg PO BID depression #180 caps 04/27/21 [Rx Last Taken Unknown] hydroxyzine HCl 50 mg tablet 50 mg PO QHS PRN insomnia #30 tabs 04/27/21 [Rx Last Taken Unknown] lisinopril 10 mg tablet 10 mg PO DAILY BP #30 tabs 05/28/21 [Rx Last Taken Unknown] meloxicam 7.5 mg tablet 7.5 mg PO DAILY PRN arthitis #60 tabs 05/31/21 [Rx Last Taken Unknown] hydrocodone-acetaminophen 5-325mg 5mg-325mg 1 tab PO Q4H PRN PRN Pain 2 days #10 TABLETS 04/09/22 [Rx Last Taken Unknown] Allergy/AdvReac Type Severity Reaction Status Date / Time corn Allergy Severe swelling Verified 04/12/21 12:14 Beef Containing Products Allergy Mild other Verified 04/12/21 12:14 azithromycin Allergy Anaphylaxis Verified 04/12/21 12:14 chlorhexidine Allergy Hives Verified 04/12/21 12:14 [From Hibiclens] iodine Allergy Hives Verified 04/12/21 12:14 povidone-iodine Allergy Hives Verified 04/12/21 12:14 [From Betadine] shellfish derived Allergy Anaphylaxis Verified 04/12/21 12:14 soap [From Betadine] Allergy Hives Verified 04/12/21 12:14 sumatriptan Allergy Rash Verified 04/12/21 12:14 morphine AdvReac Other Verified 04/12/21 12:14 Family History Mother Breast cancer blood clots Depression Hypertension Osteoporosis Aunt Breast cancer Grandmother Breast cancer Surgical History (Updated 03/21/22 @ 14:50 by Ebony Hoskins) History of arthroscopy of right knee History of breast reconstruction History of hysterectomy History of lithotripsy History of lumpectomy of right breast History of right breast biopsy history of right fallopian tube removal Hx of bilateral mastectomy Social History Smoking Status: Never smoker alcohol intake: current alcohol intake frequency: holidays/special occasions only Alcohol type: wine substance use type: does not use what type of physical activity do you participate in: none ROS ROS ED Review of Systems ROS Unobtainable: other Constitutional Constitutional ED: Reports lethargy; Denies chills, fever(s), sweats or weight loss Eyes Eyes: Denies blurry vision, change in vision or diplopia ENT ENT ED: Denies rhinorrhea or sore throat Cardiovascular Cardiovascular: Reports chest pain and racing heartbeat; Denies orthopnea Respiratory/Chest Respiratory/Chest: Reports dyspnea and dyspnea on exertion; Denies cough, orthopnea or sputum Gastrointestinal Gastrointestinal: Denies abdominal pain, diarrhea, nausea or vomiting Genitourinary Genitourinary ED: Denies dysuria, hematuria or urinary frequency Musculoskeletal Musculoskeletal: Reports other Details: Right knee pain/injury ; Denies arthralgias, back pain, myalgias or neck pain Integumentary Denies abscess, Abrasions or rash Neurologic Neurologic: Denies headache(s) or weakness Psychiatric Psychiatric: Denies anxiety, depression or suicidal thoughts Endocrine Endocrinology: Denies polydipsia, polyphagia or polyuria Hematologic/Lymphatic Hematologic/Lymphatic: Denies easy bleeding, easy bruising or lymphadenopathy Allergic/Immunologic Allergic/Immunologic ED: Denies mouth swelling, tongue swelling or urticaria EXAM Physical Exam Const Vital Signs: 04/09/22 16:20 Temperature 96.8 F L Temperature Source Temporal Pulse Rate 81 Respiratory Rate 16 Blood Pressure 154/104 H Blood Pressure Mean 120 Pulse Ox 97 Oxygen Delivery Method Room Air Positive well nourished and well developed General Appearance ED: well developed and NAD HEENT Reports TM's clear and moist mucous membranes normocephalic and atraumatic; Negative for trauma or tenderness Tympanic Membrane ED: Yes TM's clear Eyes PERRL and EOMs intact bilaterally General Eye ED: Negative for pale conjunctiva or scleral icterus Neck no lymphadenopathy, supple and no JVD General: Negative for tenderness Chest Wall inspection of chest normal and palpation of chest normal Chest: Negative for tenderness Resp normal respiratory effort and clear to auscultation bilaterally Effort and Inspection: Negative for respiratory distress or pain with movement Auscultation: Negative for rhonchi, wheezes or diminished lung sounds Cardio regular rate, regular rhythm, S1 normal heart sound, S2 normal heart sound and no murmurs Peripheral Pulses: pulses 2+ throughout GI normal to inspection, nondistended, normoactive bowel sounds, soft to palpation, non-tender, non-distended and no masses Back/Spine no CVA tenderness and no thoracic nor lumbar tenderness Extremity Extremity Narrative: ScalpRight knee-no obvious effusion or deformity noted. Patient does have pain with flexion of the knee. Over the patella. Patient has tenderness palpation over the lateral joint line. She is neurovascular intact distally. Ligamentous exam difficult as patient does not tolerate well but no obvious laxity noted with anterior posterior drawer test or with varus or valgus stress. General Extremety ED: Negative for edema General Extremity: Negative for edema Neuro oriented x3, CN's II-XII intact bilaterally, no sensory deficits noted and gait normal Sensorium / Orientation: awake, alert, oriented to person, oriented to place and oriented to time Motor Exam: strength 5/5 throughout and strength abnormal Psych mental status grossly normal Skin no rashes or lesions noted and no wounds MDM MDM MDM Narrative Medical decision making narrative: Patient was given 1 dose of Graff p.o. Patient had x-rays of the knee that showed no fractures. At this point I suspect a contusion and knee sprain with possible internal derangement. Patient will be given a knee immobilizer and crutches. She will be referred to orthopedics for follow-up. If her symptoms do not improve she may need further imaging such as possibly MRI which can be done as an outpatient. Patient given a prescription for few Graff for pain. Discharged home stable condition. Radiography Diagnostic Testing: Clinical Impression(s) from Imaging Studies Knee X-Ray 04/09/22 16:35 IMPRESSION: Intact right knee. Electronically Signed: Rhett Young MD at 16:56 EDT , Discharge Plan Triage Chief Complaint: Lower Extremity Injury ED Provider: Torey Epperson Dx/Rx/DC Orders Clinical Impression: Contusion of knee, Knee sprain Instructions: ED Contusion, Lower Extremity, ED Knee Sprain Prescriptions: New hydrocodone-acetaminophen [hydrocodone-acetaminophen] 5-325 mg tablet 1 tab PO Q4H PRN PRN (Reason: Pain) 2 Days Qty: 10 0RF No Action buspirone 10 mg tablet 10 mg PO TID Qty: 90 3RF pregabalin 75 mg capsule 75 mg PO BID Qty: 60 1RF tizanidine 2 mg tablet 2 mg PO Q8H PRN (Reason: muscle spasticity) Qty: 20 0RF anastrozole 1 MG tablet 1 mg PO QHS cetirizine 10 MG tablet 10 mg PO PRN PRN (Reason: allergy symptoms) epinephrine 0.3 MG syringe 0.3 mg IM X1 PRN (Reason: Anaphylaxis) potassium chloride 20 MEQ tablet extended release 20 meq PO BID furosemide 20 mg tablet 20 mg PO QAM Qty: 30 1RF fluoxetine 40 mg capsule 40 mg PO BID Qty: 180 2RF hydroxyzine HCl 50 mg tablet 50 mg PO QHS PRN (Reason: insomnia) Qty: 30 0RF lisinopril 10 mg tablet 10 mg PO DAILY Qty: 30 1RF meloxicam 7.5 mg tablet 7.5 mg PO DAILY PRN (Reason: arthitis) Qty: 60 0RF Rx Instructions: Take with food Primary Care Provider: Alvaro Gonzalez Referrals: Alvaro Gonzalez MD [Primary Care Provider] - Waylon Macario MD [Med Staff - Active Staff] - 3-5 Days Disposition Disposition: Home, Self Care
--- NOTE | 2022-04-09 16:35 | RAD_ITS ---
EXAM: XR RIGHT KNEE COMPLETE, 4 OR MORE VIEWS CLINICAL INDICATION: injury TECHNIQUE: Four or more views of the right knee. This report was created using Or[employer] report generation technology. COMPARISON: None. FINDINGS: BONES/JOINTS: No acute fracture, subluxation or joint effusion. SOFT TISSUES: Normal. No soft tissue swelling or gas. No radiopaque foreign body. RAD/Knee 4 or More Views IMPRESSION: Intact right knee. Electronically Signed: Rhett Young MD at 16:56 EDT ,
[2022-04-09] MEDS: HYDROcodone Bitartrate/Apap 5/325 Tablet PO (16:54)
== END 2022-04-09 17:38 | disposition home or self-care (01) ==
PROVIDERS: Emergency Provider Emergency Medicine; PCP Internal Medicine; Visit Provider Emergency Medicine
DX: S80.00XA Contusion of unspecified knee, initial encounter (principal); I10 Essential (primary) hypertension; X50.1XXA Overexertion from prolonged static or awkward postures, initial encounter; Y93.01 Activity, walking, marching and hiking; Y92.89 Other specified places as the place of occurrence of the external cause; G89.29 Other chronic pain; Z85.3 Personal history of malignant neoplasm of breast
CPT/HCPCS: 73564; 99284

== ENCOUNTER → 2022-05-10 | Outpatient (CLI) | payer OTHER, SELFPAY ==
[2022-05-10 15:17] LABS: Absolute Lymphocyte Count 2.81 X10^3/uL (0.83-4.51); Absolute Neutrophil Count 3.4 X10^3/uL (2.0-7.7); Basophil# 0.04 X10^3/uL; Basophil% 0.6 % (0-1); Eosinophil# 0.21 X10^3/uL; Hematocrit 41.7 % (37-47); Hemoglobin 14.1 g/dL (12.0-15.0); Lymphocyte # 2.81 X10^3/ul (0.83-4.51); Lymphocyte % 40.1 % (19-41); Mean Corp Hgb Conc 33.8 g/dL (32-36); Mean Corpuscular Hgb 29.1 pg (27.0-32.0); Mean Platelet Vol. 9.7 fl (6.2-12.0); Monocyte# 0.56 X10^3/uL; NRBC Flagged by Analyzer 0 % (0-5); Neutrophil # 3.37 X10^3/uL (2.7-7.7); Platelet Count 319 K/mm3 (150-450); RBC Distribution Width SD 37.5 fl (35.1-43.9); Red Blood Count 4.85 M/mm3 (4.2-5.4)
[2022-05-10 15:32] LABS: ALB/GLOB Ratio 0.8 RATIO (0.9-2.4); AST(SGOT) 19 U/L (15-37); Alanine Aminotransfer ALT/SGPT 34 U/L (13-56); Albumin, Serum 3.3 g/dL (3.2-5.0); Alkaline Phosphatase 104 U/L (45-117); Anion Gap 10 (5-15); BUN 15 mg/dL (7-18); BUN/Creat Ratio 18.7 RATIO (10-20); Calcium,Total 9.4 mg/dL (8.5-10.1); Chloride 105 mmol/L (98-107); Cholesterol 153 mg/dL (200); EST Glomerular Filtration Rate 86 mL/min (>60); Est Glom Filt Rate - Afr Amer 104 mL/min (>60); Globulin 4.1 g/dL (2.2-4.2); Glucose 96 mg/dL (74-106); High Density Lipoprotein 46 mg/dL; Potassium 3.8 mmol/L (3.5-5.1); Protein, Total 7.4 g/dL (6.4-8.2); Sodium Level 140 mmol/L (136-145); Triglycerides 168 mg/dL; Very Low Density Lipoprotein 34 mg/dL (5-40)
== END | disposition home or self-care (01) ==
LOC: MFPLAB 11:39
PROVIDERS: PCP Family Medicine; Referring Provider Family Medicine; Visit Provider Family Medicine
DX: C50.919 Malignant neoplasm of unspecified site of unspecified female breast (principal)
CPT/HCPCS: 36415; 80053; 80061; 85025

== ENCOUNTER 2022-12-25 20:25 | Emergency (ER) | payer OTHER, SELFPAY ==
[2022-12-25 20:25] VITALS: BP 154/115; PULSE 89; RESP 16; TEMP 36.3; O2SAT 99; BMI 40.6
--- NOTE | 2022-12-25 20:51 | RAD_ITS ---
INDICATION: Trauma, fifth finger injury EXAMINATION/TECHNIQUE: X-RAY - LEFT HAND XR Fingers Min 2 Views 3 VIEWS COMPARISON: None. FINDINGS: SOFT TISSUES: No soft tissue swelling or gas. No radiopaque foreign body. BONES/JOINTS: Minimally displaced fracture through the midportion of the fifth distal phalanx with slight volar angulation at the fracture apex.. Normal alignment. Joint spaces anatomically aligned. No sclerotic or destructive changes observed. RAD/Finger(s) Min 2 Views IMPRESSION: Mildly angulated fracture of the fifth distal phalanx. Electronically Signed: Sagar Mcfadden MD at 21:18 EDT ,
[2022-12-25] MEDS: HYDROcodone Bitartrate/Apap 5/325 Tablet PO (21:00)
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
[2022-12-25 22:06] VITALS: BP 139/94
== END 2022-12-25 22:14 | disposition home or self-care (01) ==
PROVIDERS: Emergency Provider Emergency Medicine; PCP Family Medicine; Visit Provider Emergency Medicine
DX: S62.637A Displaced fracture of distal phalanx of left little finger, initial encounter for closed fracture (principal); I10 Essential (primary) hypertension; W22.8XXA Striking against or struck by other objects, initial encounter; Y92.009 Unspecified place in unspecified non-institutional (private) residence as the place of occurrence of the external cause
CPT/HCPCS: 26765; 73140; 99283

== ENCOUNTER → 2023-01-30 | Outpatient (CLI) | payer OTHER, SELFPAY ==
[2023-01-30 12:33] LABS: Absolute Lymphocyte Count 2.35 X10^3/uL (0.83-4.51); Absolute Neutrophil Count 3.2 X10^3/uL (2.0-7.7); Basophil# 0.04 X10^3/uL; Basophil% 0.7 % (0-1); Eosinophils% 1.6 % (0-5); Hematocrit 44.2 % (37-47); Hemoglobin 14.8 g/dL (12.0-15.0); Lymphocyte # 2.35 X10^3/ul (0.83-4.51); Lymphocyte % 38.6 % (19-41); Mean Corp Hgb Conc 33.5 g/dL (32-36); Mean Corpuscular Hgb 28.4 pg (27.0-32.0); Mean Corpuscular Volume 84.7 fL (81-99); Mean Platelet Vol. 9.3 fl (6.2-12.0); Monocyte% 6.6 % (0-10); NRBC Flagged by Analyzer 0 % (0-5); Neutrophil # 3.18 X10^3/uL (2.7-7.7); Neutrophil % 52.2 % (47-70); Platelet Count 279 K/mm3 (150-450); RBC Distribution Width CV 12.6 % (11.6-14.6); RBC Distribution Width SD 38.5 fl (35.1-43.9); Red Blood Count 5.22 M/mm3 (4.2-5.4); White Blood Count 6.1 K/mm3 (4.4-11.0)
[2023-01-30 13:29] LABS: AST(SGOT) 15 U/L (15-37); Alanine Aminotransfer ALT/SGPT 27 U/L (13-56); Albumin, Serum 3.6 g/dL (3.2-5.0); Alkaline Phosphatase 88 U/L (45-117); Anion Gap 8 (5-15); BUN 14 mg/dL (7-18); BUN/Creat Ratio 13.9 RATIO (10-20); Calcium,Total 9.5 mg/dL (8.5-10.1); Chloride 107 mmol/L (98-107); Creatinine, Serum 1.01 mg/dL (0.55-1.02); EST Glomerular Filtration Rate 65 mL/min (>60); Est Glom Filt Rate - Afr Amer 79 mL/min (>60); Ferritin 56 ng/mL (8-252); Globulin 3.6 g/dL (2.2-4.2); Glucose 92 mg/dL (74-106); Potassium 3.9 mmol/L (3.5-5.1); Protein, Total 7.2 g/dL (6.4-8.2); Sodium Level 138 mmol/L (136-145); Thyroid Stim Hormone (TSH) 1.29 uIU/mL (0.358-3.74)
== END | disposition home or self-care (01) ==
LOC: MFPLAB 10:20
PROVIDERS: PCP Family Medicine; Visit Provider Family Medicine
DX: L65.9 Nonscarring hair loss, unspecified (principal)
CPT/HCPCS: 36415; 80053; 82728; 84443; 85025

== ENCOUNTER → 2023-11-03 | Outpatient (CLI) | payer OTHER, SELFPAY | END | disposition home or self-care (01) | PROVIDERS: PCP Family Medicine; Visit Provider Physician Assistant Surgical | DX: B02.9 Zoster without complications (principal) | CPT/HCPCS: 87070; 87075; 87205; 87798 ==

== ENCOUNTER 2024-02-24 16:18 | Emergency (ER) | payer OTHER, SELFPAY ==
[2024-02-24 16:19] VITALS: BP 163/118; PULSE 90; RESP 18; TEMP 36.1; O2SAT 98; BMI 41.1
--- NOTE | 2024-02-24 16:31 | EX.ED.VIS.HA ---
HPI History of Present Illness Chief Complaint: Headache Informant: patient Narrative Narrative: 38-year-old female has had gradual onset of right-sided headache that feels like a migraine for the past 2 or 3 days. She states now is to the point where she is vomiting even when trying to drink fluids. She is having blurred vision, photophobia, no lateral peripheral neurologic symptoms. She states she has not had 1 of these in a year or so, but this is the same headache that she used to have in the past after she was dealing with breast cancer for a while. She currently in remission but she was on chemotherapy after metastasized to nodes. She states the headache would start in the posterior right neck and go up into her temporal occipital scalp and then into the right retro-orbital frontal area which is how it is now. This is the same as how her headaches would progress before. She denies any fevers, chills, or other symptoms of an illness recently or an obvious trigger for this. She is try Tylenol and Motrin without effect. [facility] Medical History Chronic pain Seasonal allergies Hypertension History of breast cancer Home Medications ?Medication ?Instructions ?Recorded ?Last Taken ?Type bupropion HCl 100 mg tablet 100 mg PO DAILY 12/25/22 Unknown History Allergy/AdvReac Type Severity Reaction Status Date / Time corn Allergy Severe swelling Verified 02/24/24 16:21 Beef Containing Products Allergy Mild other Verified 02/24/24 16:21 azithromycin Allergy Anaphylaxis Verified 02/24/24 16:21 chlorhexidine (From Allergy Hives Verified 02/24/24 16:21 Hibiclens) iodine Allergy Hives Verified 02/24/24 16:21 povidone-iodine (From Allergy Hives Verified 02/24/24 16:21 Betadine) shellfish derived Allergy Anaphylaxis Verified 02/24/24 16:21 soap (From Betadine) Allergy Hives Verified 02/24/24 16:21 sumatriptan Allergy Rash Verified 02/24/24 16:21 morphine AdvReac Other Verified 02/24/24 16:21 ondansetron (From Zofran) AdvReac Constipatio Verified 02/24/24 16:21 n Family History Mother Breast cancer blood clots Depression Hypertension Osteoporosis Aunt Breast cancer Grandmother Breast cancer Surgical History History of lithotripsy History of hysterectomy History of breast reconstruction Hx of bilateral mastectomy History of lumpectomy of right breast History of right breast biopsy history of right fallopian tube removal History of arthroscopy of right knee Social History Smoking Status: Never smoker alcohol intake: current alcohol intake frequency: holidays/special occasions only Alcohol type: wine substance use type: does not use what type of physical activity do you participate in: none ROS ROS ED Constitutional Constitutional ED: Denies chills or fever(s) Eyes Eyes: Reports blurry vision; Denies diplopia ENT ENT ED: Denies ear pain or sore throat Cardiovascular Cardiovascular: Denies chest pain or palpitations Respiratory/Chest Respiratory/Chest: Denies cough or dyspnea Gastrointestinal Gastrointestinal: Reports nausea and vomiting; Denies abdominal pain or diarrhea Genitourinary Genitourinary ED: Denies dysuria or urinary frequency Musculoskeletal Musculoskeletal: Denies back pain or myalgias Integumentary Denies abscess or rash Neurologic Neurologic: Reports headache(s); Denies paresthesias or weakness EXAM Physical Exam Const Vital Signs: 02/24/24 16:19 Temperature 96.9 F L Temperature Source Temporal Pulse Rate 90 Respiratory Rate 18 Blood Pressure 163/118 H Blood Pressure Mean 133 Pulse Ox 98 Oxygen Delivery Method Room Air HEENT Reports normocephalic and moist mucous membranes HEENT Narrative: No mastoid or external ear tenderness. Normal-appearing. atraumatic Eyes PERRL, EOMs intact bilaterally and conjunctivae normal Eyes Narrative: photophobia Neck no lymphadenopathy, supple and no meningeal signs Resp normal respiratory effort and clear to auscultation bilaterally GI non-tender and non-distended Palpation: soft Extremity normal to inspection and full ROM Neuro oriented x3 and CN's II-XII intact bilaterally Sensorium / Orientation: awake and alert Speech: speech normal Gait (Neuro): normal gait Motor Exam: strength 5/5 throughout Psych mental status grossly normal Skin Lesions: no lesions Rashes: no rashes MDM MDM MDM Narrative Medical decision making narrative: Patient cannot tolerate Phenergan and Reglan some given her IV Reglan, IV fluids, Toradol, and some Decadron. Diagnostically we discussed and considered performing a CT of the head evaluating for lymph nodes, cancer, less likely to be subarachnoid hemorrhage. She states this is not the worst headache she has ever had, it is the same as the other ones and declines this. After treatment for migraine, she states he feels much better her headache is completely gone and she is comfortable going home. Discharge Plan Triage Chief Complaint: Headache ED Provider: Antonio Ornelas Dx/Rx/DC Orders Clinical Impression: Headache, migraine Instructions: ED, Migraine (Classical) Prescriptions: No Action bupropion HCl 100 mg tablet 100 mg PO DAILY Patient Comments: TAKE 1 TABLET by mouth two times daily Primary Care Provider: Bandar Esparza Referrals: Bandar Esparza MD [Primary Care Provider] - As Needed Print Language: Cameroonian Disposition Disposition: Home, Self Care
[2024-02-24] MEDS: Metoclopramide 10 MG/2 ML Vial 5 MG IV (16:38)
[2024-02-24] MEDS: 0.9% Normal Saline (1000mL) 1,000 ML 999 ML IV (16:38)
[2024-02-24] MEDS: dexAMETHasone 4 MG/ML Vial IV (16:39)
[2024-02-24] MEDS: Ketorolac 15 MG/ML Vial IV (16:41)
--- NOTE | 2024-02-24 16:45 | NURSING ---
PT STATES DECADRON HAS MADE HER HEADACHE WORSE AND HER EARS ARE RINGING. DR JAEGER AWARE
[2024-02-24 17:53] VITALS: BP 144/96; PULSE 91; RESP 18; TEMP 36.7; O2SAT 99
== END 2024-02-24 17:54 | disposition home or self-care (01) ==
PROVIDERS: Emergency Provider Emergency Medicine; PCP Family Medicine; Visit Provider Emergency Medicine
DX: G43.909 Migraine, unspecified, not intractable, without status migrainosus (principal); I10 Essential (primary) hypertension; Z80.3 Family history of malignant neoplasm of breast; Z85.3 Personal history of malignant neoplasm of breast; Z90.710 Acquired absence of both cervix and uterus
CPT/HCPCS: 99283

== ENCOUNTER 2024-08-26 17:37 | Emergency (ER) | payer OTHER, SELFPAY ==
[2024-08-26 17:38] VITALS: BP 167/132; PULSE 92; RESP 18; TEMP 35.9; O2SAT 99; BMI 42.3
== END 2024-08-26 18:53 | disposition left against medical advice (07) ==
LOC: ED 19:02
PROVIDERS: PCP Family Medicine
DX: T14.8XXA Other injury of unspecified body region, initial encounter (principal)

== ENCOUNTER 2024-12-19 20:40 | Emergency (ER) | payer OTHER, SELFPAY ==
[2024-12-19 20:43] VITALS: BP 177/129; PULSE 80; RESP 18; TEMP 36.6; O2SAT 99; BMI 41.4
--- NOTE | 2024-12-19 21:01 | EKG12_ITS ---
Test Reason : DYSRHYTHMIA Blood Pressure : */* mmHG Vent. Rate : 68 BPM Atrial Rate : 68 BPM P-R Int : 156 ms QRS Dur : 82 ms QT Int : 416 ms P-R-T Axes : 31 47 42 degrees QTcB Int : 442 ms Normal sinus rhythm Normal ECG Confirmed by MARI CLIFTON MD ([id number]), content editor JAIR PAREDES ([id number]) on 12/20/2024 8:21:09 AM Referred By: RADHA Confirmed By: MARI CLIFTON MD
[2024-12-19] MEDS: Aspirin 81 MG TAB.CHEW 324 MG PO (21:09)
[2024-12-19 21:10] LABS: Absolute Lymphocyte Count 3.05 X10^3/uL (0.83-4.51); Absolute Neutrophil Count 4.6 X10^3/uL (2.0-7.7); Basophil# 0.06 X10^3/uL; Basophil% 0.7 % (0-1); Eosinophil# 0.27 X10^3/uL; Eosinophils% 3.1 % (0-5); Hematocrit 40.6 % (37-47); Hemoglobin 14.5 g/dL (12.0-15.0); Lymphocyte # 3.05 X10^3/ul (0.83-4.51); Lymphocyte % 35.5 % (19-41); Mean Corp Hgb Conc 35.7 g/dL (32-36); Mean Corpuscular Hgb 30.4 pg (27.0-32.0); Mean Corpuscular Volume 85.1 fL (81-99); Monocyte# 0.57 X10^3/uL; Monocyte% 6.6 % (0-10); NRBC Flagged by Analyzer 0 % (0-5); Neutrophil # 4.63 X10^3/uL (2.7-7.7); Neutrophil % 53.9 % (47-70); Platelet Count 285 K/mm3 (150-450); RBC Distribution Width CV 11.9 % (11.6-14.6); Red Blood Count 4.77 M/mm3 (4.2-5.4); White Blood Count 8.6 K/mm3 (4.4-11.0)
[2024-12-19] MEDS: 0.9% Normal Saline (1000mL) 1,000 ML 999 ML IV (21:10)
[2024-12-19 21:11] VITALS: O2SAT 96
--- NOTE | 2024-12-19 21:13 | EDS_ITS ---
HPI History of Present Illness Chief Complaint: Hypertension Narrative Narrative: Chief complaint and HPI: HTN, headache, chest tightness. 39-year-old female with past medical history of metastatic breast cancer and HTN, obesity presents for evaluation of HTN, headache, chest tightness. Patient states that she has been under a lot of stress recently as she is going through divorce and custody velázquez with her kids. She states this evening she developed a headache, chest tightness, and dizziness. She states she checked her blood pressure and it was elevated. Patient states she has a history of HTN in the past in which she was placed on medication but quickly taken off of it due to hypotension. Patient states that she did receive her weight loss IM shot today. But states she has been on this for several weeks without any issue. She states her dizziness is mostly lightheaded however she did get an episode of room spinning. She denies any fever, chills, URI symptoms, neck pain, shortness of breath, abdominal pain, nausea, vomiting. Review of systems: See HPI Medications: As listed on the chart Allergies: As listed on the chart PFSH: Per chart Vital signs: As listed on the chart. Reviewed. Physical exam: Gen: A&O x3, NAD Head: Normocephalic, atraumatic Eyes: No sclera icterus, conjunctiva clear, PERRL, EOMI ENT: Moist mucous membranes Neck: Trachea midline, No JVD CV: RRR, no murmurs, no peripheral edema Resp: Lungs CTA BL, no w/r/c GI: Abd soft, non-distended, non-tender, no r/r/g Musc: Full ROM, no deformity Skin: Warm, dry Neuro: Alert, oriented, grossly intact, sensation intact Psych: Cooperative, appropriate mood and affect [facility] Medical History Chronic pain Seasonal allergies Hypertension History of breast cancer Home Medications ?Medication ?Instructions ?Recorded ?Last Taken ?Type bupropion HCl 300 mg 24 hr tablet, 300 mg PO DAILY 09/14 Unknown History extended release semaglutide 1 mg/dose (4 mg/3 mL) 0.5 mg subcut QWEEK 12/19/24 Unknown History subcutaneous pen injector zolpidem 5 mg tablet 5 mg PO QHS 12/19/24 Unknown History amlodipine 5 mg tablet (Norvasc) 5 mg PO DAILY 30 days #30 tabs 12/20/24 Unknown Rx clonidine HCl 0.1 mg tablet 0.1 mg PO Q8H PRN hyperten sive 12/20/24 Unknown Rx emergency 3 days #9 tabs Allergy/AdvReac Type Severity Reaction Status Date / Time corn Allergy Severe swelling Verified 12/19/24 20:43 Beef Containing Products Allergy Mild other Verified 12/19/24 20:43 azithromycin Allergy Anaphylaxis Verified 12/19/24 20:43 chlorhexidine (From Allergy Hives Verified 12/19/24 20:43 Hibiclens) iodine Allergy Hives Verified 12/19/24 20:43 povidone-iodine (From Allergy Hives Verified 12/19/24 20:43 Betadine) shellfish derived Allergy Anaphylaxis Verified 12/19/24 20:43 soap (From Betadine) Allergy Hives Verified 12/19/24 20:43 sumatriptan Allergy Rash Verified 12/19/24 20:43 morphine AdvReac Other Verified 12/19/24 20:43 ondansetron (From Zofran) AdvReac Constipatio Verified 12/19/24 20:43 n Family History Mother Breast cancer blood clots Depression Hypertension Osteoporosis Aunt Breast cancer Grandmother Breast cancer Surgical History History of lithotripsy History of hysterectomy History of breast reconstruction Hx of bilateral mastectomy History of lumpectomy of right breast History of right breast biopsy history of right fallopian tube removal History of arthroscopy of right knee Social History Smoking Status: Never smoker alcohol intake: current alcohol intake frequency: holidays/special occasions only Alcohol type: wine substance use type: does not use what type of physical activity do you participate in: none EXAM Physical Exam Const Vital Signs: 12/19/24 20:43 12/19/24 20:52 12/19/24 21:11 Temperature 97.8 F Temperature Source Oral Pulse Rate 80 Respiratory Rate 18 Respiratory Effort Normal Non-Labored Respiratory Pattern Normal Blood Pressure 177/129 H Blood Pressure Mean 145 Pulse Ox 99 96 Oxygen Delivery Method Room Air Room Air 12/19/24 21:30 12/19/24 22:00 12/19/24 22:30 Temperature Temperature Source Pulse Rate 70 81 74 Respiratory Rate 16 18 18 Respiratory Effort Respiratory Pattern Blood Pressure 121/99 H 133/81 H 147/97 H Blood Pressure Mean 106 98 113 Pulse Ox 99 99 98 Oxygen Delivery Method Room Air Room Air Room Air 12/20/24 00:00 Temperature Temperature Source Pulse Rate 76 Respiratory Rate 16 Respiratory Effort Respiratory Pattern Blood Pressure 143/104 H Blood Pressure Mean 117 Pulse Ox 97 Oxygen Delivery Method Room Air MDM MDM MDM Narrative Medical decision making narrative: 39-year-old female with past medical history of metastatic breast cancer and HTN, obesity presents for evaluation of HTN, headache, chest tightness. Differential diagnosis includes but is not limited to hypertension urgency, hypertension emergency, ACS, anxiety reaction. On presentation, patient is hypertensive but otherwise vitals are unremarkable. Given her headache, lightheadedness, and elevated blood pressure will get CT head to assess for any intracranial bleed although suspect low risk. Aspirin given for chest pain. Cardiac workup ordered. IV labetalol ordered. EKG and chest x-ray reviewed, see below. CBC unremarkable without leukocytosis or anemia. BMP unremarkable without electrolyte abnormality or KAREN/renal insufficiency. BNP unremarkable. Troponin unremarkable. CT head negative for any acute intracranial abnormality. On reevaluation, patient's blood pressure has improved. 121/99. Patient states her lightheadedness and chest heaviness has improved however she still endorses headache. Toradol ordered. Repeat troponin unremarkable. On reexamination, patient's headache has improved however her blood pressure is mildly increasing. Given patient's previous history of hypertension, will give her Norvasc. Patient updated on all of the results. Plan is to discharge home. She is comfortable with this. Patient was educated to monitor her blood pressure at home. Will give her a prescription for Norvasc given previous hypertension although this needs to be reestablished. She needs to follow-up with her PCP and let them know that she was placed on an antihypertensive. Patient given clonidine for SBP greater than 175 at home. Return precautions explained. She confirmed understanding of plan. Suspect her symptoms were secondary to hypertension urgency. EKG: Interpreted by me/EM physician: EKG shows normal sinus rhythm with a heart rate of 60. No acute ischemic changes. Diagnostic: Interpreted by me/EM physician: Chest x-ray without pneumonia, effusion, cardiomegaly, pneumothorax. Radiology in agreement. Impression: 1. Hypertension urgency 2. History of previous hypertension Lab Data Labs: Laboratory Results - last 24 hr 12/19/24 12/19/24 20:55 23:15 WBC 8.6 RBC 4.77 Hgb 14.5 Hct 40.6 MCV 85.1 MCH 30.4 MCHC 35.7 RDW Std Deviation 36.0 RDW Coeff of Adwoa 11.9 Plt Count 285 MPV 9.0 Immature Gran % (Auto) 0.200 Neut % (Auto) 53.9 Lymph % (Auto) 35.5 Lamb % (Auto) 6.6 Eos % (Auto) 3.1 Baso % (Auto) 0.7 Absolute Neuts (auto) 4.6 Absolute Lymphs (auto) 3.05 Nucleated RBC % 0 Sodium 140 Potassium 3.5 Chloride 105 Carbon Dioxide 25.5 Anion Gap 10 BUN 14 Creatinine 0.92 Estim Creat Clear Calc 95.75 Est GFR (MDRD) Non-Af 82 BUN/Creatinine Ratio 15.1 Glucose 87 Calcium 9.5 Troponin T High Sens 6 Troponin T Hi Sens 2 Hr < 6 NT pro BNP II < 36 Radiography Diagnostic Testing: Clinical Impression(s) from Imaging Studies Brain CT 12/19/24 21:20 IMPRESSION: No acute intracranial abnormality. Reading Location: [facility] Chest X-Ray 12/19/24 21:31 IMPRESSION: NO ACUTE FINDINGS. Reading Location: [facility] Discharge Plan Triage Chief Complaint: Hypertension ED Provider: Jaime Saenz Dx/Rx/DC Orders Clinical Impression: Hypertensive urgency Instructions: ED Hypertension, To Be Confirmed Prescriptions: New amlodipine [Norvasc] 5 mg tablet 5 mg PO DAILY 30 Days Qty: 30 0RF clonidine HCl 0.1 mg tablet 0.1 mg PO Q8H PRN (Reason: hypertensive emergency) 3 Days Qty: 9 0RF Rx Instructions: Take if systolic blood pressure is greater than 175 No Action zolpidem 5 mg tablet 5 mg PO QHS bupropion HCl 300 mg tablet extended release 24 hr 300 mg PO DAILY semaglutide 1 mg/dose (4 mg/3 mL) pen injector 0.5 mg subcut QWEEK Patient Comments: takes on Primary Care Provider: Bandar Esparza Referrals: Bandar Esparza MD [Primary Care Provider] - 3-5 Days Activity Restrictions/Additional Instructions: Monitor your blood pressure at home. Follow-up with your primary care physician as soon as possible. Return back to ED symptoms change or worsen. Print Language: Lao Disposition Disposition: Home, Self Care Discharge Date/Time: 12/20/24 00:39
--- NOTE | 2024-12-19 21:20 | CT_ITS ---
PROCEDURE: BRAIN/HEAD WITHOUT CONTRAST 12/19/2024 REASON FOR EXAM: HTN, IBARRA TECHNIQUE: Head CT without intravenous contrast. Coronal and Sagittal reconstruction series were provided. One or more dose reduction techniques were used (e.g., Automated exposure control, adjustment of the mA and/or kV according to patient size, use of iterative reconstruction technique. COMPARISON: MRI brain 12/14/2020 FINDINGS: * ACUTE: No acute infarct or hemorrhage. No mass effect or herniation. * BRAIN PARENCHYMA: Signal intensities are within normal limits for age. * VENTRICLES/EXTRA-AXIAL SPACES: No hydrocephalus or extra-axial fluid collections. * EXTRACRANIAL STRUCTURES: Visualized osseous structures are normal. Soft tissues are normal. Complete opacification left maxillary sinus. CT/Brain/Head without Contrast IMPRESSION: No acute intracranial abnormality. Reading Location[facility]
[2024-12-19 21:30] VITALS: BP 121/99; PULSE 70; RESP 16; O2SAT 99
--- NOTE | 2024-12-19 21:31 | RAD_ITS ---
PROCEDURE: CHEST PA AND LATERAL 12/19/2024 REASON FOR EXAM: CHEST PAIN TECHNIQUE: Frontal and lateral views of the chest. COMPARISON: 08/15/2019 FINDINGS: Hardware: None Heart: Heart size is mildly enlarged. Mediastinum: The mediastinal contour is unremarkable. Lungs: The lungs are clear. Bones: The bones are unremarkable. RAD/Chest PA and Lateral IMPRESSION: NO ACUTE FINDINGS. Reading Location: [facility]
[2024-12-19 21:59] LABS: Anion Gap 10 (5-15); BUN 14 mg/dL (4-19); BUN/Creat Ratio 15.1 RATIO (10-20); Calcium,Total 9.5 mg/dL (7.6-11.0); Carbon Dioxide 25.5 mmol/L (21.0-32.0); Chloride 105 mmol/L (98-108); Creatinine, Serum 0.92 mg/dL (0.70-1.20); EST Glomerular Filtration Rate 82 (>60); Estimated Creatinine Clearance 95.75 ml/min (50-250); Glucose 87 mg/dL (70-99); Potassium 3.5 mmol/L (3.3-5.1); Sodium Level 140 mmol/L (133-145)
[2024-12-19 22:00] VITALS: BP 133/81; PULSE 81; RESP 18; O2SAT 99
[2024-12-19 22:19] LABS: Troponin T High Sensitivity 6 ng/L (<=14)
[2024-12-19 22:30] VITALS: BP 147/97; PULSE 74; RESP 18; O2SAT 98
[2024-12-19 22:35] LABS: Pro- Brain NATRIURETIC PEPTIDE < 36 pg/mL (<=450)
[2024-12-19] MEDS: Ketorolac 15 MG/ML Vial IV (23:21)
[2024-12-19 23:56] LABS: Troponin T High Sens 2 HR < 6 ng/L (<=14)
[2024-12-20] VITALS: BP 143/104; PULSE 76; RESP 16; O2SAT 97
[2024-12-20] MEDS: amLODIPine 5 MG Tablet PO (00:34)
[2024-12-20 00:38] VITALS: BP 144/100; PULSE 80; RESP 18; TEMP 36.7; O2SAT 97
== END 2024-12-20 00:39 | disposition home or self-care (01) ==
PROVIDERS: Emergency Provider Surgery; PCP Family Medicine; Visit Provider Surgery
DX: I16.0 Hypertensive urgency (principal); R07.89 Other chest pain; R51.9 Headache, unspecified; Z85.3 Personal history of malignant neoplasm of breast; E66.9 Obesity, unspecified; Z79.85 Long-term (current) use of injectable non-insulin antidiabetic drugs; Z79.899 Other long term (current) drug therapy
CPT/HCPCS: 70450; 71046; 80048; 83880; 84484; 85025; 93005; 96361; 96374; 96375; 99285; A4216

== ENCOUNTER → 2025-02-13 | Outpatient (CLI) | payer OTHER, SELFPAY ==
--- NOTE | 2025-02-13 13:36 | US_ITS ---
PROCEDURE: BREAST LIMITED UNILATERAL 02/13/2025 REASON FOR EXAM: RULE OUT RUPTURE TECHNIQUE: BREAST LIMITED UNILATERAL COMPARISON: None FINDINGS: Right breast ultrasound was targeted to the entire breast.. Imaging of the breast prosthesis was performed. There is evidence of shadowing with the linear no. This is suggestive of rupture of the implant. US/Breast Limited Unilateral IMPRESSION: Findings suggestive of rupture of the implant. Follow-up code: MRI Recommended BI-RADS category 0 Reading Location: [id number]
--- NOTE | 2025-02-13 13:36 | US_ITS ---
PROCEDURE: BREAST LIMITED UNILATERAL 02/13/2025 REASON FOR EXAM: RULE OUT RUPTURE TECHNIQUE: BREAST LIMITED UNILATERAL COMPARISON: None FINDINGS: Left breast ultrasound was targeted to the entire breast.. Assessment of the left breast implant was obtained. There is evidence of dense shadowing with linear hyperechoic lines known as stepladder sign. This is suggestive rupture. US/Breast Limited Unilateral IMPRESSION: Impression: Findings suggestive of implant rupture. Correlation with MRI recom mended. Birads: BI-RADS 0: INCOMPLETE - NEED ADDITIONAL IMAGING EVALUATION. Reading Location: [id number]
== END | disposition home or self-care (01) ==
PROVIDERS: PCP Family Medicine; Referring Provider Surgery Plastic and Reconstructive Surgery; Visit Provider Surgery Plastic and Reconstructive Surgery
DX: T85.44XA Capsular contracture of breast implant, initial encounter (principal); Z98.890 Other specified postprocedural states
CPT/HCPCS: 76642

== ENCOUNTER 2025-04-05 19:45 | Inpatient (IN) | payer OTHER, SELFPAY ==
[2025-04-05 19:45] VITALS: BP 147/106; PULSE 93; RESP 18; TEMP 37; O2SAT 99; BMI 39.0
[2025-04-05 20:49] VITALS: BP 151/114; PULSE 77; RESP 16; O2SAT 99
[2025-04-05 21:00] VITALS: BP 155/106; PULSE 84; RESP 18; O2SAT 100
--- OUTSIDE RECORDS SUMMARY | 2025-04-05 21:04 | XMS RPT_ITS | CCD ---
Author Organization [facility] Care Team Providers Care Field Pipe Lines Supervisor Name Role Phone Monika Partida MD Unavailable Albert Parr Unavailable Hamilton Sam Unavailable Unavailable OSMANI ARTHUR Unavailable Unavailable PHYSICIAN, NONE Unavailable Unavailable Albert Parr Unavailable Monika Partida MD Unavailable Annie Alva Unavailable Unavailable PHYSICIAN, NONE Primary Care Physician Unavailab Grant Giang ([facility]) Primary Care Provider Grayson RN, Adrianne Unavailable Unavailable Grant Flynn ([facility]) Primary Care Provider Grayson RN, Adrianne Unavailable Unavailable DO Vicky Morales Primary Care Provider DO Vicky Morales Referring Provider Dr. Matthew Peterson Attending Provider Dr. Charlie Damon Attending Provider DO Vicky Morales Primary Care Provider DO Vicky Morales Referring Provider ABRAHAM Gorman Attending Provider Grayson RN, Adrianne Unavailable Unavailable Rachelle Esparza MD Primary Care Provider Dr. Rachelle Esparza MD Primary Care Provider Dr. Jaime Saenz DO Attending Provider Dr. Jaime Saenz DO Emergency Provider Dr. Elliot Stiles MD Attending Provider Mallory Robertson MD Primary Care Provider [phone] Mallory Robertson MD Referring Provider MASCI, ROSS A Referring Unavailable ESPARZA, RACHELLE A Primary Care Unavailable MASCI, ROSS A Referring Unavailable ESPARZA, RACHELLE A Primary Care Unavailable Dr. Elliot Stiles MD Referring Provider Dr. Ross Marion DO Referring Provider Mallory Robertson MD Referring Provider Siska, Elliot Attending Unavailable Ailyn, Chalon Primary Care Unavailable Siska, Elliot Admitting Unavailable Siska, Elliot Referring Unavailable Ailyn, Chalon Primary Care Unavailable Siska, Elliot Referring Unavailable Siska, Elliot Attending Unavailable Esparza, Rachelle Primary Care Unavailable Jaime Saenz Attending Unavailabl e Provider, Ed Physician Attending Unavailab le Esparza, Rachelle Primary Care Unavailable Siska, Elliot Attending Unavailable Ailyn, Chalon Referring Unavailable Ailyn, Chalon Primary Care Unavailable Ailyn, Chalon Primary Care Unavailable Sischrista, Elliot Attending Unavailable Ailyn, Chalon Referring Unavailable Ailyn, Chalon Primary Care Unavailable Siska, Elliot Attending Unavailable Masci, Ross Referring Unavailable MASCI, ROSS A Referring Unavailable ESPARZA, RACHELLE A Primary Care Unavailable MASCI, ROSS A Referring Unavailable ESPARZA, RACHELLE A Primary Care Unavailable ESPARZA, RACHELLE A Primary Care Unavailable ROSA MARTINEZ Referring Unavailable ESPARZA, RACHELLE A Primary Care Unavailable MASCI, ROSS A Attending Unavailable ESPARZA, RACHELLE A Primary Care Unavailable Allergies Allergy Classification Reported Allergen(s) Allergy Type Date of Onset Reaction(s) Facility (5 sources) povidone-iodine drug allergy 03-09-20 17 [facility] Work Phone: (5 sources) Z PACK drug allergy 03-09-20 17 [facility] Work Phone: (20 sources) Azithromycin; Translations: [azithromycin] Drug Allergy 03-23-20 17 [facility] (9 sources) Chlorhexidine; Translations: [chlorhexidine topical] Drug Allergy 04-12-20 21 [facility] (20 sources) Iodine; Translations: [iodine] Drug Allergy 03-22-20 19 Hives, Swelling [facility] Comment on above: burning (8 sources) Ondansetron; Translations: [ondansetron] Drug Allergy 12-26-19 23 Drug-induced constipation with proper administration [facility] (1 source) silver sulfADIAZINE; Translations: [silver sulfadiazine topical] Drug Allergy [facility] (10 sources) corn allergenic extract; Translations: [CORN] Drug Allergy 03-01-20 18 swelling [facility] (8 sources) Morphine Drug Allergy 04-12-20 21 Other [facility] Comment on above: HEADACHE, AGITATION (20 sources) Povidone-Iodine; Translations: [POVIDONE-IODINE] Drug Allergy 03-23-20 17 Unknown [facility] (9 sources) Shellfish; Translations: [shellfish derived] Allergy to substance 04-12-20 21 Anaphylaxis [facility] (8 sources) SUMAtriptan Drug Allergy 04-12-20 21 Rash [facility] (20 sources) Beef Containing Products; Translations: [BEEF CONTAINING PRODUCTS] Allergy to substance 03-01-20 18 Hives, Swelling [facility] Comment on above: upset stomach (9 sources) soap; Translations: [soap] Allergy to substance 04-12-20 21 Hives [facility] (17 sources) Drew silk preparation Drug Allergy 03-01-20 18 Hives, Swelling [facility] (19 sources) Shellfish; Translations: [SHELLFISH CONTAINING PRODUCTS] Drug Allergy 03-01-20 18 Anaphylaxis [facility] (19 sources) Skin Cleanser; Translations: [SKIN CLEANSER] Drug Allergy 03-01-20 18 Hives, Itching [facility] (1 source) Azithromycin Drug Allergy 03-07-20 25 [facility] (1 source) Chlorhexidine Drug Allergy 03-07-20 25 [facility] (1 source) corn extract Drug Allergy 03-07-20 25 [facility] (1 source) Iodine Drug Allergy 07 [facility] (1 source) Morphine Drug Allergy 03-07-20 [facility] (1 source) Ondansetron Drug Allergy 03-07-20 [facility] (1 source) Povidone-Iodine Drug Allergy 03-07-20 [facility] (1 source) SUMAtriptan Drug Allergy 03-07-20 [facility] (1 source) Beef Containing Products Drug allergy (disorder) 03-07-20 [facility] Medications Current Medications Medication Drug Class(es) Dates Sig (Normalized) Sig (Original) acetaminophen 500 mg oral tablet (11 sources) End: 06-21-2022 take 2 tablets by mouth every eight hours as needed acetaminophen (TYLENOL EXTRA STRENGTH) 500 mg tablet Take 1,000 mg by mouth every 8 hours as needed. Active Comment on above: Take 1,000 mg by rosemary th every 8 hours as needed. benzonatate 100 mg oral capsule (1 source) Non-narcotic Antitussive Start: 06-20-2024 End: 07-05-2024 take 1 capsule by mouth every eight hours as needed benzonatate (TESSALON PERLE) 100 mg capsule Take 1 capsule by mouth every 8 hours as needed for cough for up to 15 days. 30 capsule 06/20/2024 07/05/2024 Active 24 hr buPROPion hydrochloride 300 mg extended release oral tablet (20 sources) Aminoketone Start: 12-19-2024 take 1 tablet by mouth every twenty-four hours at bedtime Bupropion Hcl 300 mg tablet extended release 24 hr Active 300 mg PO AT BEDTIME December 19, 2024 12:00am DEPRESSION Start: 05-28-2024 take 1 tablet by rosemary th once daily buPROPion XL (WELLBUTRIN XL) 300 mg 24 hr tablet Take 300 mg by mouth once daily. 05/28/2024 Active Start: 12-25-2022 End: 12-19-2024 take 1 tablet by mouth once daily Bupropion Hcl 100 mg tablet Discontinued 100 mg PO DAILY December 25, 2022 12:00am December 19, 2024 8:50pm cloNIDine hydrochloride 0.1 mg oral tablet (4 sources) Central alpha-2 Adrenergic Agonist Start: 12-20-2024 Clonidine Hcl 0.1 mg tablet Active 0.1 mg PO Q8H as needed for hypertensive emergency 9 3 0 December 20, 2024 12:00am Take if systolic blood pressure is greater than 175 enteric contrast (will be provided with radiology test) (2 sources) Start: 11-26-2024 End: 11-27-2024 enteric contrast (will be provided with radiology test) Indications: Malignant neoplasm of upper-outer quadrant of right breast in female, estrogen receptor positive (HCC) For CT CHESTABD/PEL W IVCON Routine order Administer, As Directed One Time Only, via Oral, Rectal, both Oral and Rectal, Enteric Tube, Stoma or Indwelling Catheter, Enteric Contrast as designated per enteric contrast guidelines 1 each 11/26/2024 11/27/2024 Active Start: 06-21-2022 End: 06-21-2022 enteric contrast (will be pr ovided with radiology test) Indications: Acute right-sided low back pain with sciatica, sciatica laterality unspecified For CT CHESTABD/PEL W IVCON Routine order Administer, As Directed One Time Only, via Oral, Rectal, both Oral and Rectal, Enteric Tube, Stoma or Indwelling Catheter, Enteric Contrast as designated per enteric contrast guidelines 1 Each 0 06/21/2022 06/21/2022 Discontinued (Course of therapy completed) Comment on above: For CT CHESTABD/PEL W IVCON Routine order Administer, As Directed One Time Only, via Oral, Rectal, both Oral and Rectal, Enteric Tube, Stoma or Indwelling Catheter, Enteric Contrast as designated per enteric contrast guidelines etodolac 400 mg oral tablet (1 source) Nonsteroidal Anti-inflammatory Drug Start: 2 End: 2 etodolac 400 mg oral tablet Dose : 400 mg = 1 tab(s), Oral, BID, # 14 tab(s), 0 Refill(s), Dentalgia Start Date: 01/11/22 Stop Date: 01/18/22 Status: Ordered ibuprofen 200 mg oral tablet (10 sources) Nonsteroidal Anti-inflammatory Drug take 3 tablets by mouth every eight hours as needed ibuprofen (ADVIL) 200 mg tablet Take 600 mg by mouth every 8 hours as needed. Active iv contrast (will be provided with radiology test) (2 sources) Start: 5 End: iv contrast (will be provided with radiology test) Indications: Malignant neoplasm of upper-outer quadrant of right breast in female, estrogen receptor positive (HCC) CT Chest ABD/PEL-Inject, intravenously, once for 1 dose.No IV access, insert saline lock prior to the beginning of sedation, infusion, injection of imaging exam. Discontinue saline lock post exam. If Pt. has a central line or IVAD, may access for administration according to line specific nursing protocol. Once exam is complete flush line and de-access according to line specific nursing protocol in the CT contrast administration guidelines link. 1 each 11/26/2024 11/27/2024 Active Start: 06-21-2022 End: 06-21-2022 iv contrast (will be provide d with radiology test) Indications: Acute right-sided low back pain with sciatica, sciatica laterality unspecified CT Chest ABD/PEL-Inject, intravenously, once for 1 dose.No IV access, insert saline lock prior to the beginning of sedation, infusion, injection of imaging exam. Discontinue saline lock post exam. If Pt. has a central line or IVAD, may access for administration according to line specific nursing protocol. Once exam is complete flush line and de-access according to line specific nursing protocol in the CT contrast administration guidelines link. 1 Each 0 06/21/2022 06/21/2022 Discontinued (Clinical Decision) Comment on above: CT Chest ABD/PEL-Inj ect, intravenously, once for 1 dose.No IV access, insert saline lock prior to the beginning of sedation, infusion, injection of imaging exam. Discontinue saline lock post exam. If Pt. has a central line or IVAD, may access for administration according to line specific nursing protocol. Once exam is complete flush line and de-access according to line specific nursing protocol in the CT contrast administration guidelines link. predniSONE 50 mg oral tablet (20 sources) Start: 11-26-2024 predniSONE (DELTASONE) 50 mg Take one tablet 13, 7 and 1 hour(s) prior to CT scan. 3 tablet 11/26/2024 Active Start: 06-20-2024 End: 06-25-2024 take 5 tablets by mouth once daily, then take 4 tablets by mouth once daily, then take 3 tablets by mouth once daily, then take 2 tablets by mouth once daily, then take 1 tablet by mouth once daily predniSONE (DELTASONE) 10 mg tablet Take 5 tablets by mouth once daily for 1 day, THEN 4 tablets once daily for 1 day, THEN 3 tablets once daily for 1 day, THEN 2 tablets once daily for 1 day, THEN 1 tablet once daily for 1 day. 15 tablet 06/20/2024 06/25/2024 Active Start: 11-08-2023 End: 11-20-2023 Prednisone 10 mg tablet Discontinued 10 mg PO daily 30 12 0 November 08, 2023 12:00am November 19, 2023 12:00am November 20, 2023 12:06am Unspecified contact dermatitis, unspecified cause Take 4 tabs once daily days 1-3 3 tabs once daily days 4-6 2 tabs once daily days 7-9 and 1 tab once daily days 10-12. Start: 12-11-2020 End: 12-25-2020 take 2 tablets by mouth once daily at mealtime Prednisone 20 MG tablet Discontinued 40 mg PO DAILY December 11, 2020 12:00am December 25, 2020 10:51am With food Start: 12-11-2020 End: 12-25-2020 take 40 mg by mouth once daily at mealtime Prednisone Discontinued 40 MG PO DAILY December 11, 2020 12:00am December 25, 2020 10:51am With food Start: 04-16-2020 End: 06-19-2020 take 2 tablets by mouth once daily at mealtime Prednisone 20 MG tablet Discontinued 40 mg PO DAILY April 16, 2020 12:00am June 19, 2020 11:00am With food Start: 04-16-2020 End: 06-19-2020 take 40 mg by mouth once daily at mealtime Prednisone Discontinued 40 MG PO DAILY April 16, 2020 12:00am June 19, 2020 11:00am With food Start: 01-28-2019 End: 06-18-2019 take 3 tablets by mouth once daily Prednisone 20 MG tablet Discontinued 60 mg PO DAILY 15 January 28, 2019 12:00am June 18, 2019 8:48am Start: 01-28-2019 End: 06-18-2019 take 60 mg by mouth once daily Prednisone Discontinued 60 MG PO DAILY January 28, 2019 12:00am June 18, 2019 8:48am Start: 05-27-2018 End: 10-09-2018 take 3 tablets by mouth once daily at mealtime Prednisone 20 MG tablet Discontinued 60 mg PO DAILY May 27, 2018 12:00am October 09, 2018 2:37pm With food Start: 05-27-2018 End: 10-09-2018 take 60 mg by mouth once daily at mealtime Prednisone Discontinued 60 MG PO DAILY May 27, 2018 12:00am October 09, 2018 2:37pm With food Semaglutide (4 sources) Start: 12-19-2024 Semaglutide 1 mg/dose (4 mg/3 mL) pen injector Active 1 mg SC TH December 19, 2024 12:00am WEIGHT LOSS Start: 12-19-2024 Semaglutide 1 mg/dose (4 mg/3 mL) pen injector Active 0.5 mg SC EVERY WEEK December 19, 2024 12:00am semaglutide 0.25 mg/0.5 mL (0.5 mg/mL) subcutaneous compounded injection (10 sources) inject 0.5 mg by subcutaneous injection every week semaglutide 0.25 mg/0.5 mL (0.5 mg/mL) subcutaneous compounded injection Inject 0.5 mg subcutaneously one time a week. Active temazepam 15 mg oral capsule (6 sources) Benzodiazepine Start: 2016 Restoril 15 mg oral capsule Dose : 15 mg = 1 cap(s), Oral, qHS, PRN for sleep, 0 Refill(s) Start Date: 03/25/17 Status: Ordered traZODone hydrochloride 50 mg oral tablet (17 sources) Serotonin Reuptake Inhibitor Start: 2021 End: 2021 take 1 tablet by mouth once daily at bedtime traZODone (DESYREL) 50 mg tablet Take 1 tablet by mouth daily at bedtime. 30 tablet 0 06/21/2022 07/21/2022 Active Start: 09-18-2019 End: 06-19-2020 take 1 tablet by mouth at bedtime Trazodone 50 mg tablet Discontinued 50 mg PO AT BEDTIME 90 March 16, 2020 9:15am June 19, 2020 11:27am Comment on above: Take 1 tablet by rosemary th daily at bedtime. zolpidem tartrate 5 mg oral tablet (12 sources) gamma-Aminobutyric Acid-ergic Agonist Start: 12-19-2024 take 2 tablets by mouth at bedtime Zolpidem 5 mg tablet Active 10 mg PO AT BEDTIME December 19, 2024 12:00am SLEEP Start: 12-19-2024 take 1 tablet by rosemary th at bedtime Zolpidem 5 mg tablet Active 5 mg PO AT BEDTIME December 19, 2024 12:00am Start: 10-31-2017 End: 12-20-2017 take 1 tablet by mouth at bedtime as needed Zolpidem (Ambien) 5 mg tablet Discontinued 5 mg PO BEDTIME as needed for insomnia 30 0 October 31, 2017 12:00am December 20, 2017 2:34pm Completed/Discontinued Medications Medication Drug Class(es) Dates Sig (Normalized) Sig (Original) acetaminophen 325 mg / HYDROcodone bitartrate 5 mg oral tablet (20 sources) Opioid Agonist Start: 12-25-2022 End: 11-03-2023 Hydrocodone-Acetami nophen 5-325 mg tablet Discontinued 1 {tbl} PO EVERY 4 HOURS NEEDED as needed for Pain 4 3 0 December 25, 2022 November 03, 2023 2:30pm Fracture of phalanx of finger of left hand Start: 12-25-2022 End: 11-03-2023 take 1 tablet by mouth every four hours as needed Hydrocodone-Acetaminophen Discontinued 1 TABLET PO EVERY 4 HOURS NEEDED 4 3 December 25, 2022 November 03, 2023 2:30pm Start: 04-09-2022 take 1 tablet by rosemary th every four hours as needed Hydrocodone-Acetaminophen Active 1 TABLE T PO EVERY 4 HOURS NEEDED 10 2 April 09, 2022 Start: 11-29-2019 End: 01-22-2020 Hydrocodone-Acetaminophen (N orco) 5-325 mg tablet Discontinued 1 {tbl} PO TWICE A DAY as needed for migraine headache 14 0 November 29, 2019 January 22, 2020 1:46pm Start: 08-28-2019 End: 09-02-2019 Hydrocodone-Acetaminophen 1 EACH tablet Discontinued 1 NMA PO EVERY 4 HOURS NEEDED as needed for Pain Score 1-3/10 14 5 0 August 28, 2019 September 01, 2019 1:00am September 02, 2019 1:09am Personal history of urinary calculi Start: 08-28-2019 End: 09-02-2019 Hydrocodone-Acetaminophen Di scontinued 1 EACH PO EVERY 4 HOURS NEEDED 14 5 August 28, 2019 September 02, 2019 1:09am Start: 12-17-2018 End: 12-20-2018 Hydrocodone-Acetaminophen 1 TABLET tablet Discontinued 1 {tbl} PO EVERY 6 HOURS NEEDED as needed for Pain 10 3 0 December 17, 2018 12:00am December 19, 2018 12:00am December 20, 2018 12:09am Fracture of tooth Fracture of tooth (traumatic), initial encounter for closed fracture Start: 12-17-2018 End: 12-20-2018 take 1 tablet by mouth every six hours as needed Hydrocodone-Acetaminophen Discontinued 1 TABLET PO EVERY 6 HOURS NEEDED 10 3 December 17, 2018 12:00am December 20, 2018 12:09am Start: 05-27-2017 End: 09-12-2017 Hydrocodone-Acetaminophen 1 TABLET tablet Discontinued 1 - 2 {tbl} PO EVERY 4 HOURS NEEDED as needed for Pain 12 0 May 27, 2017 12:00am September 12, 2017 4:57pm Start: 05-27-2017 End: 09-12-2017 take 1 tablet by mouth every four hours as needed Hydrocodone-Acetaminophen Discontinued 1 - 2 TABLET PO EVERY 4 HOURS NEEDED May 27, 2017 12:00am September 12, 2017 4:57pm acetaminophen 325 mg / oxyCODONE hydrochloride 5 mg oral tablet (20 sources) Opioid Agonist Start: 08-27-2019 End: 09-18-2019 Oxycodone-Acetaminophen 1 EA CH tablet Discontinued 1 NMA PO NEEDED as needed for Pain Or Fever August 27, 2019 1:00am September 18, 2019 11:07am Start: 08-27-2019 End: 09-18-2019 Oxycodone-Acetaminophen Disc ontinued 1 EACH PO NEEDED August 27, 2019 1:00am September 18, 2019 11:07am Start: 08-19-2019 End: 08-26-2019 Oxycodone-Acetaminophen 5-32 5 mg tablet Discontinued 1 - 2 {tbl} PO EVERY 6 HOURS NEEDED as needed for Pain 12 3 0 August 23, 2019 August 25, 2019 1:00am August 26, 2019 1:08am Calculus of kidney Start: 08-19-2019 End: 08-26-2019 take 1 tablet by mouth every six hours as needed Oxycodone-Acetaminophen Discontinued 1 - 2 TABLET PO EVERY 6 HOURS NEEDED 12 3 August 23, 2019 August 26, 2019 1:08am Adaptic (8 sources) Start: 07-08-2019 End: 07-08-2019 Adaptic Discontinued 60 3 No vember 2018 1:00am July 08, 2019 1:23pm Non-pressure chronic ulcer of skin of other sites with unspecified severity As directed Start: 07-08-2019 End: 07-08-2019 Adaptic Discontinued 60 Lola steward 2018 1:00am July 08, 2019 1:23pm As directed amLODIPine 5 mg oral tablet (20 sources) Dihydropyridine Calcium Channel Shelley Start: 12-20-2024 End: 02-07-2025 take 1 tablet by mouth once daily Amlodipine (Norvasc) 5 mg tablet Discontinued 5 mg PO DAILY 30 30 0 December 20, 2024 12:00am February 07, 2025 2:18pm Start: 06-18-2019 End: 12-09-2020 take 1 tablet by mouth once daily Amlodipine 5 mg tablet Discontinued 0 .ROUTE .COMPLEX 90 4 June 30, 2020 9:37am December 09, 2020 1:35pm TAKE 1 TABLET BY MOUTH ONCE DAILY Start: 10-09-2018 End: 06-21-2022 take 1 tablet by mouth once daily Amlodipine 10 mg tablet Discontinued 10 mg PO daily 90 4 October 09, 2018 3:25pm June 18, 2019 9:10am Start: 09-26-2017 End: 10-09-2018 take 1 tablet by mouth once daily Amlodipine 5 mg tablet Discontinued 5 mg PO daily 90 4 September 26, 2017 1:00am October 09, 2018 3:25pm Start: 03-25-2017 amLODIPine See Instructions, Oral qDay, 0 Refill(s) Start Date: 03/25/17 Status: Ordered Start: 03-06-2017 End: 09-12-2017 take 1 tablet by mouth once daily Amlodipine 5 MG tablet Discontinued 5 mg PO DAILY March 06, 2017 12:00am March 06, 2017 3:26pm Comment on above: Take 10 mg by mouth once daily. amLODIPine 10 mg / benazepril hydrochloride 20 mg oral capsule (7 sources) Dihydropyridine Calcium Channel Shelley, Angiotensin Converting Enzyme Inhibitor Start: 01-25-2017 AMLODIPINE BESY-BENAZEPRIL HCL 10-20 MG CAPS AMLODIPINE BESY-BENAZEPRIL HCL [id number] Albert Parr amoxicillin 875 mg / clavulanate 125 mg oral tablet (8 sources) Penicillin-class Antibacterial Start: 07-24-2020 End: 10-20-2020 Amoxicillin-Pot Clavulanate 875-125 mg tablet Discontinued 1 {tbl} PO Q12H 42 0 July 24, 2020 1:00am October 20, 2020 10:04am Start: 07-24-2020 End: 10-20-2020 take 1 tablet by mouth every twelve hours Amoxicillin-Pot Clavulanate Discontinued 1 TABLET PO Q12H 42 July 24, 2020 1:00am October 20, 2020 10:04am anastrozole 1 mg oral tablet (20 sources) Aromatase Inhibitor Start: 08-15-2019 End: 06-21-2022 take 1 tablet by mouth at bedtime Anastrozole 1 MG tablet Discontinued 1 mg PO AT BEDTIME August 15, 2019 1:00am April 13, 2022 9:07am cancer Start: 03-06-2017 End: 09-12-2017 take 1 tablet by mouth once daily Anastrozole 1 MG tablet Discontinued 1 mg PO DAILY March 06, 2017 12:00am September 12, 2017 4:57pm Comment on above: Take 1 tablet by rosemary th once daily. baclofen 5 mg oral tablet (16 sources) gamma-Aminobutyric Acid-ergic Agonist Start: 08-15-2019 End: 06-19-2020 Baclofen 5 MG tablet Discontinued 5 mg PO NEEDED as needed for BACK PAIN August 15, 2019 1:00am June 19, 2020 11:01am Start: 10-31-2017 End: 12-20-2017 take 5 mg by mouth three times daily as needed for muscle spasms Baclofen 10 mg tablet Discontinued 5 mg PO THREE TIMES A DAY as needed for muscle spasm 30 October 31, 2017 12:00am December 20, 2017 2:33pm Start: 10-31-2017 End: 12-20-2017 take 5 mg by mouth three times daily Baclofen Discontinued 5 MG PO THREE TIMES A DAY October 31, 2017 12:00am December 20, 2017 2:33pm busPIRone hydrochloride 10 mg oral tablet (20 sources) Start: 12-25-2020 End: 04-13-2022 take 1 tablet by mouth three times daily Buspirone 10 mg tablet Discontinued 10 mg PO THREE TIMES A DAY 90 3 December 25, 2020 12:00am April 13, 2022 9:07am Start: 11-06-2019 End: 06-19-2020 take 1 tablet by mouth twice daily Buspirone 15 mg tablet Discontinued 15 mg PO TWICE A DAY 180 1 November 21, 2019 10:33am June 19, 2020 10:59am Start: 09-18-2019 End: 11-06-2019 take 1 tablet by mouth twice daily as needed for anxiety Buspirone 7.5 mg tablet Discontinued 0 .ROUTE .COMPLEX 60 1 October 10, 2019 5:49pm November 06, 2019 1:46pm TAKE 1 TABLET BY MOUTH TWICE A DAY NEEDED FOR ANXIETY Calcium (8 sources) Phosphate Binder, Calcium End: 11-26-2024 take 1000 mg by mouth twice daily CALCIUM ORAL Take 1,000 mg by mouth twice daily. 11/26/2024 Discontinued take 1000 mg by mouth twice vimal y CALCIUM ORAL Take 1,000 mg by mouth twice daily. Active take 1000 mg by mouth twice vimal y CALCIUM ORAL Take 1,000 mg by mouth twice daily. 0 Active Comment on above: Take 1,000 mg by rosemary th twice daily. cetirizine hydrochloride 10 mg oral tablet (16 sources) Histamine-1 Receptor Antagonist Start : 11-05 End: 04-13 Cetirizine 10 MG tablet Discontinued 10 mg PO NEEDED as needed for allergy symptoms December 11, 2020 2:21pm April 13, 2022 9:07am chlorthalidone 25 mg oral tablet (8 sources) Thiazide-like Diuretic Start : 06-18 End: 12-17 take 1 tablet by mouth once daily Chlorthalidone 25 mg tablet Discontinued 25 mg PO DAILY 90 June 18, 2019 12:00am December 18, 2019 3:53pm cholecalciferol 1.25 mg oral capsule (8 sources) Vitamin D Start : 10-31 End: 10-31 take 1 capsule by mouth every week Cholecalciferol (Vitamin D3) 50,000 unit capsule Discontinued 01799 U PO EVERY WEEK 8 October 31, 2017 12:00am October 31, 2017 10:26am ciprofloxacin 500 mg oral tablet (8 sources) Quinolone Antimicrobial Start : 08-28 End: 09-18 take 1 tablet by mouth twice daily Ciprofloxacin Hcl 500 MG tablet Discontinued 500 mg PO TWICE A DAY 6 August 28, 2019 1:00am September 18, 2019 11:06am cyclobenzaprine hydrochloride 10 mg oral tablet (8 sources) Muscle Relaxant Start : 10-14 End: 10-31 take 1 tablet by mouth three times daily as needed for muscle spasms Cyclobenzaprine 10 MG tablet Discontinued 10 mg PO THREE TIMES A DAY as needed for Muscle Spasm 20 0 October 14, 2017 1:00am October 31, 2017 10:36am dicyclomine hydrochloride 20 mg oral tablet (1 source) Anticholinergic Start : 03-26 End: 03-31 Bentyl 20 mg oral tablet Dose : 20 mg = 1 tab(s), PO, QID, # 20 tab(s), 0 Refill(s) Start Date: 03/26/17 Stop Date: 03/31/17 Status: Ordered diphenhydrAMINE hydrochloride 25 mg oral tablet (8 sources) Histamine-1 Receptor Antagonist Start : 05-27 End: 10-09 take 1 tablet by mouth three times daily Diphenhydramine Hcl 25 MG tablet Discontinued 25 mg PO THREE TIMES A DAY 15 0 May 27, 2018 12:00am October 09, 2018 3:21pm docusate sodium 100 mg oral capsule (8 sources) Start : 08-28 End: 09-18 take 1 capsule by mouth twice daily Docusate Sodium 100 MG capsule Discontinued 100 mg PO TWICE A DAY 20 0 August 28, 2019 1:00am September 18, 2019 11:06am doxepin 6 mg oral tablet (8 sources) Tricyclic Antidepressant Start : 12-25 End: 12-25 take 1 tablet by mouth at bedtime as needed for sleep Doxepin 6 mg tablet Discontinued 6 mg PO AT BEDTIME as needed for sleep 30 2 December 25, 2020 12:00am December 25, 2020 3:52pm doxycycline hyclate 100 mg oral capsule (5 sources) Tetracycline-class Drug Start : 11-02 End: 11-12 take 1 capsule by mouth twice daily Doxycycline Hyclate 100 mg capsule Discontinued 100 mg PO TWICE A DAY 20 10 0 November 03, 2023 12:00am November 12, 2023 12:00am November 13, 2023 12:05am Acute sinusitis, unspecified [id number] 0.3 ml EPINEPHrine 1 mg/ml auto-injector (9 sources) alpha-Adrenergic Agonist, beta-Adrenergic Agonist, Catecholamine Start : 04-16 End: 12-11 inject 0.3 mg by intramuscular injection once Epinephrine 0.3 MG syringe Discontinued 0.3 mg IM ONE TIME 2 0 April 16, 2020 12:00am December 11, 2020 2:22pm ergocalciferol 1.25 mg oral capsule (8 sources) Provitamin D2 Compound Start : 10-31 End: 12-20 Ergocalciferol (Vitamin D2) 50,000 unit capsule Discontinued [id number] U PO EVERY WEEK 8 October 31, 2017 12:00am December 20, 2017 2:33pm exemestane 25 mg oral tablet (8 sources) Aromatase Inhibitor Start : 06-21 End: 11-26 take 1 tablet by mouth once daily exemestane (AROMASIN) 25 mg tablet Take 1 tablet by mouth once daily. 30 tablet 2 06/21/2022 11/26/2024 Discontinued Comment on above: Take 1 tablet by rosemary once daily. famotidine 20 mg oral tablet (8 sources) Histamine-2 Receptor Antagonist Start : 05-27 End: 12-01 take 1 tablet by mouth twice daily Famotidine 20 MG tablet Discontinued 20 mg PO TWICE A DAY 10 0 May 27, 2018 12:00am December 01, 2018 11:26pm fluconazole 150 mg oral tablet (8 sources) Azole Antifungal Start : 07-24 End: 12-09 Fluconazole 150 mg tablet Discontinued 150 mg PO Every 3 Days 2 0 July 24, 2020 1:00am December 09, 2020 1:06pm may repeat second dose 72 hrs after first dose if symptoms persist FLUoxetine 40 mg oral capsule (20 sources) Serotonin Reuptake Inhibitor Start : 10-20 End: 06-21 take 1 capsule by mouth twice daily Fluoxetine 40 mg capsule Discontinued 40 mg PO TWICE A DAY 180 2 April 27, 2021 9:14am April 13, 2022 9:07am depression Start: 07-24-2020 End: 10-20-2020 take 1 capsule by mouth three times daily in the morning Fluoxetine 20 mg capsule Discontinued 20 mg PO THREE TIMES A DAY 90 30 1 September 02, 2020 6:12pm October 20, 2020 10:23am administer in the morning and at noon/midday Start: 06-19-2020 End: 06-19-2020 take 1 tablet by mouth twice daily in the morning Fluoxetine 20 mg tablet Discontinued 20 mg PO TWICE A DAY 60 0 June 19, 2020 12:00am June 19, 2020 12:13pm administer in the morning and at noon/midday Start: 06-19-2020 End: 07-24-2020 take 1 capsule by mouth twice daily in the morning Fluoxetine 20 mg capsule Discontinued 20 mg PO TWICE A DAY 60 0 July 22, 2020 9:56am July 24, 2020 2:23pm administer in the morning and at noon/midday Comment on above: Take 40 mg by mouth twice daily. furosemide 20 mg oral tablet (20 sources) Loop Diuretic Start: 12-09-2020 End: 04-13-2022 take 1 tablet by mouth once daily in the morning Furosemide 20 mg tablet Discontinued 20 mg PO EVERY MORNING 30 January 20, 2021 9:56am April 13, 2022 9:07am fluid retention gabapentin 300 mg oral capsule (20 sources) Anti-epileptic Agent Start: 12-20-2017 End: 10-09-2018 take 1 capsule by mouth three times daily Gabapentin 300 mg capsule Discontinued 300 mg PO THREE TIMES A DAY 90 June 29, 2018 9:52am October 09, 2018 2:37pm Start: 09-26-2017 End: 12-20-2017 Gabapentin 300 mg capsule Di scontinued 300 mg PO TWICE A DAY 60 3 September 26, 2017 1:00am December 20, 2017 3:28pm Start QHS x 1 week then increase to BID. hydroCHLOROthiazide 25 mg / triamterene 37.5 mg oral tablet (9 sources) Potassium-sparing Diuretic, Thiazide Diuretic Start: 12-18-2019 End: 06-21-2022 Triamterene-Hydrochlorothiaz id 37.5-25 mg tablet Discontinued 1 {tbl} PO EVERY MORNING 90 December 18, 2019 12:00am December 09, 2020 4:04pm Start: 12-18-2019 End: 12-09-2020 take 1 tablet by mouth once daily in the morning Triamterene-Hydrochlorothiazid Discontin ued 1 TABLET PO EVERY MORNING December 18, 2019 12:00am December 09, 2020 4:04pm Comment on above: Take 1 tablet by rosemary once daily. hydrOXYzine hydrochloride 50 mg oral tablet (20 sources) Antihistamine Start: 12-26-19 End: 11-03-19 take 1 tablet by mouth three times daily as needed for anxiety Hydroxyzine Hcl 50 mg tablet Discontinued 50 mg PO 3 TIMES DAILY NEEDED as needed for Anxiety December 25, 2022 12:00am November 03, 2023 2:30pm Start: 12-25-2020 End: 04-13-2022 take 1 tablet by mouth at bedtime as needed Hydroxyzine Hcl 50 mg tablet Discontinued 50 mg PO AT BEDTIME as needed for insomnia 30 0 April 27, 2021 9:19am April 13, 2022 9:07am lisinopril 10 mg oral tablet (20 sources) Angiotensin Converting Enzyme Inhibitor Start: 12-09-2020 End: 04-13-2022 take 1 tablet by mouth once daily Lisinopril 10 mg tablet Discontinued 10 mg PO DAILY 30 1 May 28, 2021 8:57am April 13, 2022 9:07am BP meloxicam 7.5 mg oral tablet (20 sources) Nonsteroidal Anti-inflammatory Drug Start: 09-18-2019 End: 11-26-2024 take 1 tablet by mouth once daily at mealtime Meloxicam 7.5 mg tablet Discontinued 7.5 mg PO DAILY as needed for arthitis 60 0 May 31, 2021 8:47am April 13, 2022 9:06am Take with food Comment on above: Take 7.5 mg by mouth once daily. methylPREDNISolone 4 mg oral tablet (8 sources) Corticosteroid Start: 04-12-2021 End: 04-17-2021 take 1 tablet by mouth once Methylprednisolone (Medrol (Yvrose)) 4 mg tablets,dose pack Discontinued 4 mg PO per package directions 21 5 0 April 12, 2021 12:00am April 16, 2021 12:00am April 17, 2021 12:01am mirtazapine 7.5 mg oral tablet (20 sources) Start: 06-29-2020 End: 06-21-2022 take 2 tablets by mouth at bedtime Mirtazapine 7.5 mg tablet Discontinued 15 mg PO AT BEDTIME 60 2 October 16, 2020 2:06pm December 11, 2020 2:38pm Start: 06-29-2020 End: 12-25-2020 take 15 mg by mouth at bedtime Mirtazapine Discontinue d 15 MG PO AT BEDTIME 60 October 16, 2020 2:06pm December 11, 2020 2:38pm Start: 06-19-2020 End: 06-29-2020 take 1 tablet by mouth at bedtime Mirtazapine 7.5 mg tablet Discontinued 7.5 mg PO AT BEDTIME 30 June 19, 2020 12:00am June 29, 2020 2:35pm Comment on above: Take 15 mg by mouth daily at bedtime. Drug Treatment Unknown - unknown (1 source) No information available. ondansetron 4 mg disintegrating oral tablet (20 sources) Serotonin-3 Receptor Antagonist Start: 0 End: 0 take 1 tablet by mouth every eight hours as needed for nausea Ondansetron 4 MG tablet Discontinued 4 mg PO EVERY 8 HOURS NEEDED as needed for Nausea August 22, 2019 1:00am September 18, 2019 11:07am Start: 10-09-2018 End: 10-14-2018 take 1 tablet by mouth three times daily as needed for nausea and vomiting Ondansetron Hcl (Zofran) 4 mg tablet Discontinued 4 mg PO THREE TIMES A DAY as needed for nausea and vomiting 14 5 0 October 09, 2018 1:00am October 13, 2018 1:00am October 14, 2018 1:08am Start: 03-08-2018 End: 10-09-2018 take 1 tablet by mouth every eight hours as needed for nausea Ondansetron 4 MG tablet Discontinued 4 mg PO EVERY 8 HOURS NEEDED as needed for Nausea March 08, 2018 12:00am October 09, 2018 2:38pm phenazopyridine hydrochloride 200 mg oral tablet (8 sources) Start: 10-14-2017 End: 12-20-2017 take 1 tablet by mouth twice daily as needed for pain Phenazopyridine 200 MG tablet Discontinued 200 mg PO TWICE DAILY NEEDED as needed for Pain 10 October 14, 2017 1:00am December 20, 2017 2:34pm potassium chloride 20 meq extended release oral tablet (20 sources) Start: 12-09-2020 End: 04-13-2022 take 1 tablet by mouth twice daily Potassium Chloride 20 MEQ tablet extended release Discontinued 20 meq PO TWICE A DAY December 11, 2020 2:37pm April 13, 2022 9:07am supplement Start: 10-22-2020 End: 12-09-2020 take 1 tablet by mouth once daily Potassium Chloride 20 mEq tablet extended release Discontinued 20 meq PO DAILY 90 3 October 22, 2020 11:05am December 09, 2020 4:05pm Start: 10-30-2019 End: 12-18-2019 take 2 tablets by mouth twice daily Potassium Chloride 20 mEq tablet extended release Discontinued 40 meq PO TWICE A DAY 360 October 30, 2019 12:00am December 18, 2019 3:54pm Start: 10-30-2019 End: 12-18-2019 take 40 mEq by mouth twice daily Potassium Chloride Discontinued 40 MEQ PO TWICE A DAY 360 October 30, 2019 12:00am December 18, 2019 3:54pm Start: 10-10-2019 End: 10-22-2020 take 1 tablet by mouth once daily Potassium Chloride 10 mEq tablet extended release Discontinued 0 .ROUTE .COMPLEX 90 April 30, 2020 12:25pm October 22, 2020 11:06am TAKE 1 TABLET BY MOUTH EVERY DAY Start: 09-18-2019 End: 10-10-2019 take 1 tablet by mouth once daily Potassium Chloride 20 mEq tablet extended release Discontinued 20 meq PO DAILY 90 September 18, 2019 2:27pm October 10, 2019 5:49pm Start: 06-18-2019 End: 09-18-2019 Potassium Chloride (Klor-Con 10) 10 mEq tablet extended release Discontinued 10 meq PO DAILY 30 September 17, 2019 12:32pm September 18, 2019 2:28pm Start: 10-10-2018 End: 10-10-2018 take 1 tablet by mouth once daily Potassium Chloride 10 mEq tablet extended release Discontinued 10 meq PO DAILY 30 October 10, 2018 1:00am October 10, 2018 10:48am pregabalin 75 mg oral capsule (20 sources) Start: 07-24-2020 End: 04-13-2022 take 1 capsule by mouth twice daily Pregabalin 75 mg capsule Discontinued 75 mg PO TWICE A DAY 60 November 19, 2020 1:58pm December 25, 2020 5:00pm Polyneuropathy, unspecified Start: 06-19-2020 End: 06-21-2022 take 1 capsule by mouth twice daily Pregabalin 50 mg capsule Discontinued 50 mg PO TWICE A DAY 60 0 July 22, 2020 9:56am July 24, 2020 2:23pm Polyneuropathy, unspecified Start: 08-15-2019 End: 06-19-2020 take 1 capsule by mouth twice daily Pregabalin 25 mg capsule Discontinued 25 mg PO TWICE A DAY 60 0 May 01, 2020 3:15pm June 19, 2020 12:13pm Comment on above: Take 50 mg by mouth twice daily. promethazine hydrochloride 25 mg oral tablet (20 sources) Phenothiazine Start: 08-19-20 End: 07-24-20 take 1 tablet by mouth every six hours as needed for nausea Promethazine 25 mg tablet Discontinued 25 mg PO EVERY 6 HOURS NEEDED as needed for Nausea 30 0 November 29, 2019 2:45pm July 24, 2020 2:22pm SUMAtriptan 25 mg oral tablet (8 sources) Serotonin-1b and Serotonin-1d Receptor Agonist Start: 05-27-20 End: 10-09-19 take 1 tablet by mouth once daily as needed Sumatriptan Succinate 25 MG tablet Discontinued 25 mg PO DAILY NEEDED as needed for migrian May 27, 2018 12:00am October 09, 2018 2:37pm tiZANidine 2 mg oral tablet (8 sources) Central alpha-2 Adrenergic Agonist Start: 04-12-20 End: 04-13-20 take 1 tablet by mouth every eight hours as needed Tizanidine 2 mg tablet Discontinued 2 mg PO Q8H as needed for muscle spasticity 20 0 April 12, 2021 12:00am April 13, 2022 9:07am traMADol hydrochloride 50 mg oral tablet (20 sources) Opioid Agonist Start: 04-13-20 End: 04-20-20 take 1 tablet by mouth every eight hours as needed Tramadol 50 mg tablet Discontinued 50 mg PO Q8H as needed for injury to right knee 20 7 0 April 13, 2022 12:00am April 19, 2022 12:00am April 20, 2022 12:04am Sprain of knee Sprain of unspecified site of unspecified knee, initial encounter Start: 12-09-2020 End: 12-25-2020 take 1 tablet by mouth every twelve hours as needed for pain Tramadol 50 mg tablet Discontinued 50 mg PO Q12H as needed for pain 14 0 December 09, 2020 12:00am December 25, 2020 10:51am Start: 06-19-2020 End: 07-19-2020 take 1 tablet by mouth twice daily as needed for pain Tramadol 50 mg tablet Discontinued 50 mg PO TWICE A DAY as needed for pain 60 30 0 June 19, 2020 12:08pm July 18, 2020 1:00am July 19, 2020 1:02am Polyneuropathy, unspecified Start: 01-22-2020 End: 06-19-2020 take 1 tablet by mouth every eight hours as needed for pain Tramadol 50 mg tablet Discontinued 50 mg PO Q8H as needed for pain 45 0 May 01, 2020 3:15pm June 19, 2020 12:13pm Start: 08-15-2019 End: 01-22-2020 take 1 tablet by mouth every six hours as needed for pain Tramadol 50 MG tablet Discontinued 50 mg PO EVERY 6 HOURS NEEDED as needed for Pain Or Fever August 15, 2019 1:00am January 22, 2020 1:47pm Start: 04-05-2017 take 1 tablet by rosemary th every six hours as needed for pain TRAMADOL HCL 50 MG TABS 1 tab by mouth q 6 hrs PRN pain TRAMADOL HCL [id number] Monika Partida MD valACYclovir 1000 mg oral tablet (5 sources) Herpesvirus Nucleoside Analog DNA Polymerase Inhibitor, Herpes Simplex Virus Nucleoside Analog DNA Polymerase Inhibitor, Herpes Zoster Virus Nucleoside Analog DNA Polymerase Inhibitor Start: 11-03-2023 End: 11-10-2023 Valacyclovir 1 gram tablet Discontinued 1000 mg PO THREE TIMES A DAY 7 November 03, 2023 12:00am November 09, 2023 12:00am November 10, 2023 12:06am Start: 11-03-2023 take 1000 mg by mout h three times daily Valacyclovir Active 1000 MG PO THREE TIMES A DAY 10 03November 03, 2023 12:00am 24 hr venlafaxine 37.5 mg extended release oral capsule (20 sources) Serotonin and Norepinephrine Reuptake Inhibitor Start: 06-21-2022 End: 11-26-2024 take 1 capsule by mouth once daily venlafaxine ER (EFFEXOR XR) 37.5 mg 24 hr capsule Take 1 capsule by mouth once daily. 30 capsule 06/21/2022 11/26/2024 Discontinued Start: 06-18-2019 End: 06-19-2020 take 225 mg by mouth once daily Venlafaxine Discontinu ed 75 MG PO daily 90 February 03, 2020 4:33pm June 19, 2020 11:24am total 225 mg daily Start: 06-11-2018 End: 06-18-2019 take 225 mg by mouth once daily Venlafaxine Discontinu ed 225 MG PO daily 360 June 11, 2018 11:41am June 18, 2019 8:50am total 225 mg daily Start: 03-08-2018 End: 06-11-2018 take 225 mg by mouth once daily Venlafaxine Discontinu ed 150 MG PO daily March 08, 2018 11:42am June 11, 2018 11:42am total 225 mg daily Start: 12-20-2017 End: 06-19-2020 take 3 capsules by mouth once daily Venlafaxine 75 mg capsule,extended release 24hr Discontinued 75 mg PO daily 90 3 February 03, 2020 4:33pm June 19, 2020 11:24am total 225 mg daily Start: 12-20-2017 End: 03-08-2018 take 225 mg by mouth once daily Venlafaxine Discontinu ed 75 MG PO daily 90 December 20, 2017 12:00am March 08, 2018 11:42am total 225 mg daily Start: 03-25-2017 End: 06-19-2020 take 1 capsule by mouth once daily Venlafaxine (Effexor Xr) 150 mg capsule,extended release 24hr Discontinued 150 mg PO DAILY 90 3 February 03, 2020 4:32pm June 19, 2020 11:24am Start: 01-25-2017 EFFEXOR XR 150 MG [id number] VENLAFAXINE HCL [id number] Albert Parr Start: 01-25-2017 EFFEXOR XR 150 MG [id number] VENLAFAXINE HCL [id number] Albert Parr Comment on above: Take 1 capsule by mo prh once daily. Problems Active Problems Problem Classification Problem Date Documented Da te Episodic/Chronic Allergic reactions (20 sources) Allergic reaction to drug; Translations: [Allergy, unspecified, initial encounter] 12-12-2020 Episodic Anxiety disorders (8 sources) Mixed anxiety and depressive disorder; Translations: [Anxiety disorder, unspecified] 09-26-2017 Chronic Calculus of urinary tract (20 sources) Ureteric stone; Translations: [Calculus of ureter] 08-20-2019 Episodic Cancer of breast (20 sources) Malignant tumor of breast ; Translations: [Malignant neoplasm of breast upper outer quadrant] Onset: 03-24-2017 03-25-2017 Chronic Cancer of breast (14 sources) History of malignant neoplasm of breast; Translations: [Personal history of malignant neoplasm of breast] Onset: 03-09-2017 03-09-2017 Episodic Complication of device; implant or graft (11 sources) Capsular breast contracture of breast implant; Translations: [Capsular contracture of breast implant, initial encounter] Onset: 02-27-2025 01-24-2025 Episodic Disorders of teeth and jaw (1 source) Disorder of teeth AND/OR supporting structures; Translations: [Other specified disorders of teeth and supporting structures] Onset: 01-11-2022 Episodic Essential hypertension (9 sources) Hypertensive disorder; Translations: [Essential (primary) hypertension] Onset: 12-25-2024 12-13-2020 Chronic Comment on above: MANY YRS AGO ON VIMAL Y MEDICATION. 12/2024 PATIENT HAD HYPERTENSIVE CRISIS DUE TO OVERWELMING STRESS AND ANXIETY. HAS PRN CLONIDINE BUT HAS NOT USED SINCE 12/2024 Fluid and electrolyte disorders (8 sources) Hypokalemia; Translations: [Hypokalemia] 01-08-2020 Episodic Fracture of upper limb (14 sources) Fracture of phalanx of finger; Translations: [Fracture of unspecified phalanx of unspecified finger, initial encounter for closed fracture] 12-25-2022 Episodic Genitourinary symptoms and ill-defined conditions (8 sources) Retention of urine; Translations: [Retention of urine, unspecified] 08-20-2019 Episodic Headache; including migraine (20 sources) Migraine without aura; Translations: [Migraine without aura, not intractable, without status migrainosus] 01-08-2020 Chronic Hypertension with complications and secondary hypertension (4 sources) Hypertensive urgency ; Translations: [Hypertensive urgency] 12-28-2024 Chronic Nonmalignant breast conditions (9 sources) Breast lump; Translations: [Breasts asymmetrical] Onset: 03-09-2017 03-09-2017 Episodic Nutritional deficiencies (8 sources) Vitamin D deficiency; Translations: [Vitamin D deficiency, unspecified] 10-31-2017 Chronic Other acquired deformities (3 sources) Finding of finger; Translations: [Unspecified deformity of unspecified finger(s)] 12-25-2022 Episodic Other acquired deformities (4 sources) Deformity of hand; Translations: [Unspecified deformity of unspecified finger(s)] 01-02-2023 Episodic Other infections; including parasitic (5 sources) H/O: infectious disease; Translations: [Personal history of other infectious and parasitic diseases] 11-03-2023 Episodic Other infections; including parasitic (1 source) Personal history of other infectious and parasitic diseases; Translations: [Personal history of other infectious and parasitic diseases] 11-03-2023 Episodic Other lower respiratory disease (8 sources) Dyspnea on exertion; Translations: [Other forms of dyspnea] 12-13-2020 Episodic Other lower respiratory disease (2 sources) Cough; Translations: [Acute cough] 06-19-2024 Episodic Other nervous system disorders (8 sources) Chronic pain; Translations: [Other chronic pain] 05-31-2021 Chronic Other nervous system disorders (8 sources) Neuropathy; Translations: [Polyneuropathy, unspecified] 09-26-2017 Chronic Other nutritional; endocrine; and metabolic disorders (8 sources) Morbid obesity; Translations: [Morbid (severe) obesity due to excess calories] 12-13-2020 Chronic Other upper respiratory disease (8 sources) Seasonal allergic rhinitis; Translations: [Other seasonal allergic rhinitis] 12-13-2020 Chronic Phlebitis; thrombophlebitis and thromboembolism (2 sources) H/O: Deep vein thrombosis; Translations: [Personal history of other venous thrombosis and embolism] 03-10-2025 Episodic Residual codes; unclassified (8 sources) History of arthroscopy of knee joint; Translations: [Other specified postprocedural states] 09-13-2017 Episodic Comment on above: 2008 Residual codes; unclassified (8 sources) History of bilateral breast reconstruction; Translations: [Other specified postprocedural states] 01-24-2025 Episodic Residual codes; unclassified (1 source) Other specified postprocedural states; Translations: [Other specified postprocedural states] Onset: 02-27-2025 Episodic Secondary malignancies (8 sources) Secondary malignant neoplastic disease; Translations: [Secondary malignant neoplasm of unspecified site] 08-15-2019 Chronic Spondylosis; intervertebral disc disorders; other back problems (1 source) Acute back pain with sciatica; Translations: [Lumbago with sciatica, unspecified side] Episodic Sprains and strains (20 sources) Superior glenoid labrum lesion of right shoulder, initial encounter; Translations: [Sprain of knee] Onset: 01-25-2017 01-25-2017 Episodic Superficial injury; contusion (16 sources) Contusion of knee; Translations: [Contusion of unspecified knee, initial encounter] 04-17-2022 Episodic Syncope (8 sources) Syncope and collapse; Translations: [Syncope and collapse] 12-13-2020 Episodic Unclassified (1 source) No current problems or disability 01-25-2017 Unclassified (1 source) Acute cough; Translations: [Acute cough] Onset: 06-19-2024 Viral infection (6 sources) Herpes zoster; Translations: [Zoster without complications] 11-03-2023 Episodic Past or Other Problems Problem Classification Problem Date Documented Date Episodic/Chronic Joint disorders and dislocations; trauma-related (7 sources) Unspecified dislocation of right shoulder joint, initial encounter; Translations: [Unspecified dislocation of right shoulder joint, initial encounter] Onset: 01-25-2017 02-03-2017 Episodic Other injuries and conditions due to external causes (1 source) Other injury of unspecified body region, initial encounter; Translations: [Other injury of unspecified body region, initial encounter] Onset: 09-19-2024 Episodic Other non-traumatic joint disorders (7 sources) Pain in right shoulder; Translations: [Pain in right shoulder] Onset: 01-25-2017 01-25-2017 Episodic Residual codes; unclassified (5 sources) BRCA2 gene mutation positive; Translations: [Genetic susceptibility to malignant neoplasm of breast] Onset: 03-09-2017 03-09-2017 Episodic Residual codes; unclassified (17 sources) Breast cancer genetic marker of susceptibility positive; Translations: [Genetic susceptibility to malignant neoplasm of breast] Onset: 03-01-2018 03-01-2018 Episodic Residual codes; unclassified (17 sources) History of breast reconstruction; Translations: [Other specified postprocedural states] Onset: 06-07-2018 06-07-2018 Episodic Residual codes; unclassified (3 sources) Estrogen receptor positive status [ER+]; Translations: [Malignant neoplasm of upper-outer quadrant of right breast in female, estrogen receptor positive (HCC)] Onset: 03-24-2017 Episodic Unclassified (8 sources) history of right fallopian tube removal 03-21-2022 Comment on above: after eptopic pregna ncy Results Test Name Value Interpretation Reference Range Facility Plastic Surgery Visit Report on 03-07-2025 Plastic Surgery Visit Report [facility] Plastic Reconstructive Surgery [address], [address] [place] [address] OFFICE VISIT Date of Service: 03/07/25 MR#: [id number] Acct: [id number] Name: MARGO VALERO Rep #: [id number] : [id number] Provider: Dr. Elliot Stiles MD Age/Sex: 39/F Location: [facility] Status: Signed Intake Vital Signs 01/08/25 15:50 03/07/25 13:55 Height 5 ft 3 in BP 128/89 H Blood Pressure Location Lt brachial Position Sitting Respiration 18 Pulse 106 H Pulse Source Monitor Pulse Oximetry (%) 96 Oxygen Delivery Method room air Intake Visit Reasons: PRE OP Chief Complaint: Breast consult Is patient in pain?: No Allergies corn Allergy (Severe, Verified 03/07/25 13:54) swelling Beef Containing Products Allergy (Mild, Verified 03/07/25 13:54) other azithromycin Allergy (Verified 03/07/25 13:54) Anaphylaxis chlorhexidine (From Hibiclens) Allergy (Verified 03/07/25 13:54) Hives iodine Allergy (Verified 03/07/25 13:54) Hives povidone-iodine (From Betadine) Allergy (Verified 03/07/25 13:54) Hives shellfish derived Allergy (Verified 03/07/25 13:54) Anaphylaxis soap (From Betadine) Allergy (Verified 03/07/25 13:54) Hives sumatriptan Allergy (Verified 03/07/25 13:54) Rash morphine Adverse Reaction (Verified 03/07/25 13:54) Other ondansetron (From Zofran) Adverse Reaction (Verified 03/07/25 13:54) Constipation Medications ???Medication ???Instructions ???Recorded ???Confirmed ???Type bupropion HCl 300 mg 24 hr tablet, 300 mg PO QHS DEPRESSION 5 03/07/25 History extended release semaglutide 1 mg/dose (4 mg/3 mL) 1 mg subcut TH WEIGHT LOSS 03/07/25 History subcutaneous pen injector zolpidem 5 mg tablet 10 mg PO QHS SLEEP 12/19/24 History clonidine HCl 0.1 mg tablet 0.1 mg PO Q8H PRN hypertensive 10/1503/07/25 Rx emergency 3 days #9 tabs PFSH Medical History History of Holter monitoring Depression Anxiety DVT (deep venous thrombosis) Non-smoker History of stress test History of echocardiogram Seasonal allergies Hypertension History of breast cancer Surgical History History of lithotripsy History of hysterectomy History of breast reconstruction Hx of bilateral mastectomy History of lumpectomy of right breast History of right breast biopsy history of right fallopian tube removal History of arthroscopy of right knee Family History Mother Breast cancer blood clots Depression Hypertension Osteoporosis Aunt Breast cancer Grandmother Breast cancer Social History Smoking Status: Never smoker alcohol intake: current alcohol intake frequency: holidays/special occasions only Alcohol type: wine substance use type: does not use what type of physical activity do you participate in: none HPI PRE OP Details: The patient is a 39-year-old female presenting with ruptured silicone breast implants. The implants, which are 800 cc silicone, were found to be ruptured upon ultrasound examination, necessitating their exchange. The patient has a history of blood clots, which complicates the surgical planning due to the risk of thrombosis during or after surgery. The patient also has an elevated BMI, currently at 42, which poses additional risks for wound healing complications and impacts the surgical approach. The patient expressed concerns about her abdominal area and inquired about the possibility of concurrent procedures, such as a panniculectomy, during the implant exchange surgery. Due to the elevated BMI and history of blood clots, the patient was advised to consult with a hematology oncology consultant for a perioperative anticoagulation plan and to consider weight reduction prior to any abdominal surgery. ROS: - Imaging: Ultrasound revealed ruptured silicone breast implants. Discussed breast imaging today at the visit (reviewed) Attestation: Documentation on this patient encounter was supported using ambient scribe technology/ voice AI technology. The patient consented to recording for the purpose of documenting the encounter. Provider reviewed content of the generated note prior to signature. Exam Details Exam deferred today Coding Level of Care Code Off vis,est,level 3 Diagnoses Complication of breast implant T85.9XXA Breast asymmetry following reconstructive surgery N65.1 Breast implant capsular contracture T85.44XA Ruptured right breast implant T85.43XA Ruptured left breast implant T85.43XA Assessment and Plan (No Qualifiers) Assessment and Plan (1) Complication of breast implant: Status: Acute (2) Breast asymm (more content not included)... [facility] 03-05-2025 SILVINO Telephone (KUSH) MARGO VALERO ([id number]) 1985 F Date Time Provider Department 03/05/25 ROSS MARION During your visit today, we recorded the following information about you: TrueDixie Doherty 03/05/2025 2:08 PM Signed Patient called stating she is needing an appointment with Dr. Marion. She states Dr. Stiles spoke with Dr. Marion regarding a scheduled surgery for patient on 03/12. Dr. Marion informed Dr. Stiles that patient would need to be seen. Patient states Dr. Stiles's office informed her that there are no openings prior to surgery, and I informed patient the same. She is asking if she is able to see another provider. She states she needs to have something scheduled or surgery will be canceled today. Please advise. Larissa Tang LPN 03/05/2025 3:44 PM Signed I spoke with Dr. Marion regarding this issue. He spoke with Dr. Stiles this morning and Dr. Stiles is aware that the patient will need to be worked up prior to forming a isaura-operative plan d/t H/O DVT. Dr. Stiles will postpone patient's surgery. I called and left a message for the patient explaining the above. We will contact the patient later this week after Dr. Marion's return. ERIKA Lawrence, Dixie 03/10/2025 9:40 AM Signed Patient returned call. Larissa, were we looking at moving patients to fit patient in or next avail? Informed patient we would contact her to schedule Ross Marion DO 03/10/2025 12:20 PM Signed Thank you. Order filed. DO Aurelio Easley Melanie, LPN 03/10/2025 1:18 PM Signed PSS- please contact patient to schedule with vascular MEDICINE for pre-op clearance. ERIKA Lawrence Naomi 03/10/2025 2:03 PM Signed Spoke w pt to schedule consult to [facility] which require the pt to call and schedule, pt was given the number to call and schedule at [facility] as closer locations are booked out further than she would like. Also she would like a nurse to call her as she is wondering why Dr Marion can't clear her. Larissa Santiago LPN 03/10/2025 3:04 PM Signed I spoke with the patient and explained to her that at this time, Dr. Marion does not have availability in his schedule to provide pre-operative clearance. We recommend that she follow up with Vascular Medicine for further evaluation and clearance. Patient will contact Dr. Stiles's office for a recommendation to someone closer to [place]. If she is unsuccessful, she will contact this office to be scheduled through [facility]. Patient verbalized understanding. Larissa Tang LPN Allergies As of Date: 03/05/2025 Noted Allergy Reaction SHELLFISH CONTAINING PRODUCTS 03/01/2018 10 - Anaphylaxis BETADINE (POVIDONE-IODINE) 03/23/2017 16 - Unknown Z YVROSE (AZITHROMYCIN) 03/23/2017 16 - Unknown BEEF CONTAINING PRODUCTS 03/01/2018 4 - Hives 7 - Swelling CORN 03/01/2018 4 - Hives 7 - Swelling IODINE 03/22/2019 4 - Hives 7 - Swelling SKIN CLEANSER 03/01/2018 4 - Hives 9 - Itching Comments: Hippa Cleanse Date Reviewed: 01/22/2025 Reviewed by: Michelle Yu, RT(R) - Fully Assessed Primary Visit Diagnosis:Malignant neoplasm of upper-outer quadrant of right breast in female, estrogen receptor positive (HCC) [C50.411, Z17.0] Other Visit Diagnosis:History of DVT (deep vein thrombosis) [Z86.718] Order(s):CONSULT TO VASCULAR MEDICINE [19991125] Order #: [id number]: 1 FUTURE Prescriptions as of 03/10/2025 - acetaminophen (TYLENOL EXTRA STRENGTH) 500 mg tablet Take 1,000 mg by mouth every 8 hours as needed. - ibuprofen (ADVIL) 200 mg tablet Take 600 mg by mouth every 8 hours as needed. - semaglutide 0.25 mg/0.5 mL (0.5 mg/mL) subcutaneous compounded injection Inject 0.5 mg subcutaneously one time a week. - predniSONE (DELTASONE) 50 mg Take one tablet 13, 7 and 1 hour(s) prior to CT scan. - buPROPion XL (WELLBUTRIN XL) 300 mg 24 hr tablet Take 300 mg by mouth once daily. Problem List As Of Date 03/05/2025 Noted Resolved Malignant neoplasm of upper-outer quadrant of r*03/24/2017 BRCA positive [Z15.01, Z15.09] 03/01/2018 Hx of breast reconstruction [Z98.890] 06/07/2018 Encounter Status:Closed by LARISSA TANG on 03/10/25 [facility] MR/PATSherry 02-26-2025 MR/PETE.AMY [facility] Medical Records Department [address] [place] [address] PAT - Anesthesia 02/26/25 1607 MR#: [id number] Acct: [id number] Name: MARGO VALERO Rep #: [id number] : 1985 39 From: Roderick Ervin MD PCP: Dr. Mallory Robertson MD Status:PRE IN Y Race: C Location: [facility] Pre-Assessment Diagnosis/Proposed Procedure Planned Operative Procedure(s): BREAST REDUCTION REVISION Anesthesia History Anesthesia History - medical record specialist: Anesthesia History - medical record specialist Hx Hospitalization No 02/26/25 15:28 Any Problems With Anesthesia No 02/26/25 15:28 Cholinesterase deficiency No 02/26/25 15:28 You/Your Family Experience No 02/26/25 15:28 fever (hyperthermia) with Relationship Recent Exposure to Contagious No 01/08/25 15:50 Disease Does patient have nerve No 02/26/25 15:28 stimulator Patient instructed to have device shut off --Does patient have Pacemaker or ICD? When Was Last Pacemaker Check QUESTION #4 FULL TEXT: You/Your Family Experience fever (hyperthermia) with Anesthesia Last Oral Intake Last Oral intake: Last Oral Intake NPO since Meds taken in AM with sips of water? Meds patient instructed to take am of surgery PONV PONV - medical record specialist: PONV - medical record specialist Female Yes 02/26/25 15:28 HX of Motion Sickness Yes 02/26/25 15:28 HX of N/V After Surgery No 02/26/25 15:28 Non-Smoker Yes 02/26/25 15:28 Duration of Surgery greater Yes 02/26/25 15:28 than 60 minutes Number of Risk Factors 4 02/26/25 15:28 PONV Score Severe Risk 02/26/25 15:28 Height Weight Height Weight: Anesthesia: Height Weight Height 5 ft 3 in 01/08/25 15:50 Respiratory Assessment Respiratory Assessment - medical record specialist: Respiratory Tract Infection Hx - medical record specialist Hx Respiratory Tract Infection No 02/26/25 15:28 STOP Sleep Apnea STOP Sleep Apnea - medical record specialist: STOP Sleep Apnea - medical record specialist Hx Hypertension Yes: ON DAILY MED MANY YRS 02/26/25 15:28 AGO/HAD RECENT HYPERTENSIVE CRISIS 12/2024. PRN MED Hx Sleep Apnea No 02/26/25 15:28 CPAP BIPAP Do you snore loudly (louder No 02/26/25 15:28 than talking or can be heard Do you often feel tired/ No 02/26/25 15:28 fatigued/ sleepy during daytime? Has anyone observed you stop No 02/26/25 15:28 breathing during sleep? STOP Results Negative 02/26/25 15:28 QUESTION #5 FULL TEXT : Do you snore loudly (louder than talking or can be heard through closed doors)? Tobacco Use History Tobacco Use History - medical record specialist: Tobacco Use History - medical record specialist Tobacco Use Smoking Status Never smoker 02/26/25 15:28 Hx Tobacco Use No 02/26/25 15:28 Years Smoking Packs Smoked per Day Smoking Cessation Date was within the last 15 years Hx Smoking Cessation Date Hx Smoking Cessation Counseling Hematologic Medial History Hematologic Hx - medical record specialist: Hematologic Medical Hx - head charrer Hx of Blood Transfusion No 02/26/25 15:28 Hx of Transfusion in last 3 No 02/26/25 15:28 Months Date of Last Transfusion (if within last 3 months) Ever experience any problems No 02/26/25 15:28 with transfusion(s)? Specify any problems Hx of Preganancy in last 3 No 02/26/25 15:28 Months Nurse Filling Out Transfusion DSCHRIBER 02/26/25 15:28 Questions: Date: 02/26/25 02/26/25 15:28 Time: 15:02/26/25 15:28 Patient unable to answer at this time (ie. confused, unrespo /Reproducti on History /Reproducti ve History - medical record specialist: /Reproducti ve Hx- medical record specialist Hx Now No 02/26/25 15:28 Gestational Age (in weeks): EDC: Hx Hx Para Hx Section SAB No 02/26/25 15:28 PFSH Medical History (Updated 02/26/25 @ 15:38 by Deepthi Herring) History of Holter monitoring Depression Anxiety DVT (deep venous thrombosis) Non-smoker History of stress test History of echocardiogram Seasonal allergies Hypertension History of breast cancer Home Medications ???Medication ???Instructions ???Recorded ???Last Taken ???Type bupropion HCl 300 mg 24 hr tablet, 300 mg PO QHS DEPRESSION 5 Unknown History extended release semaglutide 1 mg/dose (4 mg/3 mL) 1 mg subcut TH WEIGHT LOSS Unknown History subcutaneous pen injector zolpidem 5 mg tablet 10 mg PO QHS SLEEP 12/19/24 Unknow n History clonidine HCl 0.1 mg tablet 0.1 mg PO Q8H PRN hypertensive 10/15 Unknown Rx emergency 3 days #9 tabs Allergy/AdvReac Type Severity Reaction Status Date / Time corn Allergy Severe swelling Verified (more content not included)... [facility] Breast Limited Unilateralon 02-13-2025 Breast Limited Unilateral [facility] Imaging Services [address], [place] [id number] Breast Limited Unilateral MR#: [id number] Acct: [id number] Name: MARGO VALERO Rep #: [id number] : 1985 F 39 From: Eliceo chapa MD PCP: Dr. Mallory Robertson MD Status: REG CLI Study: Breast Limited Unilateral Date of Exam: Exam# [id number] Ordering Dr: Elliot Stiles MD PROCEDURE: BREAST LIMITED UNILATERAL 02/13/2025 REASON FOR EXAM: RULE OUT RUPTURE TECHNIQUE: BREAST LIMITED UNILATERAL COMPARISON: None FINDINGS: Right breast ultrasound was targeted to the entire breast.. Imaging of the breast prosthesis was performed. There is evidence of shadowing with the linear no. This is suggestive of rupture of the implant. US/Breast Limited Unilateral IMPRESSION: Findings suggestive of rupture of the implant. Follow-up code: MRI Recommended BI-RADS category 0 Reading Location: [id number] CC: Dr. Mallory Robertson MD; Dr. Elliot Stiles MD Janitor Custodian: Signed [facility] Breast Limited Unilateral [facility] Services [address], [place] [id number] Breast Limited Unilateral MR#: [id number] Acct: [id number] Name: MARGO VALERO Rep #: [id number] : 1985 F 39 From: Eliceo chapa MD PCP: Dr. Mallory Robertson MD Status: REG CLI Study: Breast Limited Unilateral Date of Exam: Exam# [id number] Ordering Dr: Elliot Stiles MD PROCEDURE: BREAST LIMITED UNILATERAL 02/13/2025 REASON FOR EXAM: RULE OUT RUPTURE TECHNIQUE: BREAST LIMITED UNILATERAL COMPARISON: None FINDINGS: Left breast ultrasound was targeted to the entire breast.. Assessment of the left breast implant was obtained. There is evidence of dense shadowing with linear hyperechoic lines known as stepladder sign. This is suggestive rupture. US/Breast Limited Unilateral IMPRESSION: Impression: Findings suggestive of implant rupture. Correlation with MRI recommended. Birads: BI-RADS 0: INCOMPLETE - NEED ADDITIONAL IMAGING EVALUATION. Reading Location: [id number] CC: Dr. Mallory Robetrson MD; Dr. Elliot Stiles MD Janitor Custodian: Signed [facility] Plastic Surgery Visit Report on 02-07-2025 Plastic Surgery Visit Report [facility]ive Surgery [address] [facility] [address] [place] [address] OFFICE VISIT Date of Service: 02/07/25 MR#: [id number] Acct: [id number] Name: MARGO VALERO Rep #: [id number] : 1985 Provider: Dr. Elliot Stiles MD Age/Sex: 39/F Location: [facility] Status: Signed Intake Vital Signs 01/08/25 15:50 02/07/25 14:16 Height 5 ft 3 in BP 129/93 H Blood Pressure Location Lt brachial Position Sitting Respiration 18 Pulse 81 Pulse Source Monitor Pulse Oximetry (%) 98 Oxygen Delivery Method room air Intake Visit Reasons: 2 W FU Chief Complaint: Breast consult Is patient in pain?: No Allergies corn Allergy (Severe, Verified 02/07/25 14:16) swelling Beef Containing Products Allergy (Mild, Verified 02/07/25 14:16) other azithromycin Allergy (Verified 02/07/25 14:16) Anaphylaxis chlorhexidine (From Hibiclens) Allergy (Verified 02/07/25 14:16) Hives iodine Allergy (Verified 02/07/25 14:16) Hives povidone-iodine (From Betadine) Allergy (Verified 02/07/25 14:16) Hives shellfish derived Allergy (Verified 02/07/25 14:16) Anaphylaxis soap (From Betadine) Allergy (Verified 02/07/25 14:16) Hives sumatriptan Allergy (Verified 02/07/25 14:16) Rash morphine Adverse Reaction (Verified 02/07/25 14:16) Other ondansetron (From Zofran) Adverse Reaction (Verified 02/07/25 14:16) Constipation Medications ???Medication ???Instructions ???Recorded ???Confirmed ???Type bupropion HCl 300 mg 24 hr tablet, 300 mg PO DAILY 12/19/24 5 History extended release semaglutide 1 mg/dose (4 mg/3 mL) 0.5 mg subcut QWEEK 12/19/2401/20 History subcutaneous pen injector zolpidem 5 mg tablet 5 mg PO QHS 12/19/24 02/07/25 Hist ory clonidine HCl 0.1 mg tablet 0.1 mg PO Q8H PRN hypertensive 10/1502/07/25 Rx emergency 3 days #9 tabs PFSH Medical History Chronic pain Seasonal allergies Hypertension History of breast cancer Surgical History History of lithotripsy History of hysterectomy History of breast reconstruction Hx of bilateral mastectomy History of lumpectomy of right breast History of right breast biopsy history of right fallopian tube removal History of arthroscopy of right knee Family History Mother Breast cancer blood clots Depression Hypertension Osteoporosis Aunt Breast cancer Grandmother Breast cancer Social History Smoking Status: Never smoker alcohol intake: current alcohol intake frequency: holidays/special occasions only Alcohol type: wine substance use type: does not use what type of physical activity do you participate in: none HPI 2 W FU Details: Margo Valero is a delightful 39-year-old female with past medical history of bilateral mastectomy and chemotherapy for cancer of right breast in 2016 performed in [place]. Patient also underwent bilateral salpingo-oophorectom y/hysterectomy (BRCA positive). She reports wound healing issues following the reconstructive surgery with implants. Patient follows with Dr. Marion from [facility] oncology, who referred her to me out of concern for collapse of the left breast implant and potential collapse of the right breast implant. She has not had an MRI or any other imaging. No history of any radiation. 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 She was on oral blood thinner for 3 months. No other family history of blood clotting. She is not a smoker. Caprini score is 6 for history of blood clots Patient's goals for reconstruction is improve symmetry. She would also like to potentially have her abdomen addressed, as she has excess tissue. CURRENT ENCOUNTER, 09 Sep 2024: The patient is a 39-year-old female presenting for evaluation and management of breast implant issues, including asymmetry. The patient has a history of breast implants placed under the muscle. The patient reports that the implants are approximately 10 years old and desires a revision to address the asymmetry, particularly the blunting of the lower pole on the right and the displacement of the IMF, as well as the overall loss of projection 2/2 displacement within the pocket. They are silicone and she would like to continue with silicone implants. I reviewed the CT scan results with the patient. The patient has a history of deep vein thrombosis (DVT) risk, with a Caprini score of 7, indicating a 4% risk of clot formation even with prophylaxis. The patient has undergone previous gynecological surgeries, which may have contributed to (more content not included)... [facility] CT ABD/PEL W IVCONon 025 CT ABD/PEL W IVCON * * *Final Report* * * DATE OF EXAM: Feb 06 2025 10:57AM [facility] 0530 - CT ABD/PEL W IVCON / PROCEDURE REASON: multiple diagnoses * * * * Physician Interpretation * * * * EXAMINATION: CT CHEST WITH IV CONTRAST AND CT ABDOMEN AND PELVIS WITH IV CONTRAST CLINICAL HISTORY: Breast carcinoma. TECHNIQUE: CT of the chest from the thoracic inlet to the upper abdomen was performed following administration of IV contrast. CT of the abdomen and pelvis was performed using standard technique. Contrast: IV: 100 ml of Omnipaque 350 Oral: 450 ml of 50ML Omnipaque [address] Radiation dose: Integrated Dose-length product (DLP) for this visit = 785 mGy*cm. CT Dose Reduction Employed: Automated exposure control(AEC) and iterative recon COMPARISON: Outside, imported CT of the abdomen and pelvis dated 09/20/2021. RESULT: Limitations: None. Chest: Lines, tubes, and devices: None. Lung parenchyma and pleura: There is no pleural effusion. Mild dependent atelectasis. There is no pneumothorax or endobronchial lesion. No convincing CT evidence for pneumonia. Thoracic inlet, heart, and mediastinum: There are bilateral breast implants present. There are no pathologically enlarged axillary, mediastinal, or hilar lymph nodes. The heart is normal in size. There is a trace pericardial effusion. Abdomen/pelvis: Liver: The liver is of low-density, when compared to the spleen, suggesting fatty infiltration of liver. There is no obvious focal discrete hepatic mass. Biliary: The gallbladder is relatively collapsed. No biliary dilation. Spleen: No mass. No splenomegaly. Pancreas: There is no obvious focal discrete pancreatic mass or pancreatic ductal dilation Adrenals:No mass. Kidneys: There are bilateral extrarenal pelvises. No hydronephrosis or perinephric fluid collection. GI tract: There are no dilated loops of bowel to suggest obstruction. Lymph nodes: No abdominal lymphadenopathy. Mesentery/Peritoneum : No abdominal ascites. Vasculature: No abdominal aortic aneurysm. Pelvis: Phleboliths are seen within the pelvis. There are prominent, less than 1 cm pelvic lymph nodes, likely reactive. Patient is status post hysterectomy. There is no pelvic mass or pelvic ascites. Bones/Soft Tissues: Mild scoliosis of the spine. No destructive bony lesion. Vacuum phenomena is seen involving the sacroiliac spaces, bilaterally. There is a tiny umbilical hernia, containing omental fat. IMPRESSION: No acute abdominal process is identified. No convincing CT evidence for metastatic disease to chest. No acute abdominal or pelvic process is identified. No convincing CT evidence for metastatic disease within the abdomen or pelvis. Janitor Custodian: TIANA Transcribe Date/Time: Feb 06 2025 11:13A Dictated by : DMITRI STRICKLAND MD This examination was interpreted and the report reviewed and electronically signed by: DMITRI STRICKLAND MD on Feb 06 2025 11:22AM EST [id number] CN [facility] CT Abdomen and Pelvis W cont rast Stephen 02-06-2025 * * *Final Report* * * DATE OF EXAM: Feb 06 2025 10:57AM [facility] 0530 - CT ABD/PEL W IVCON / PROCEDURE REASON: multiple diagnoses * * * * Physician Interpretation * * * * EXAMINATION: CT CHEST WITH IV CONTRAST AND CT ABDOMEN AND PELVIS WITH IV CONTRAST CLINICAL HISTORY: Breast carcinoma. TECHNIQUE: CT of the chest from the thoracic inlet to the upper abdomen was performed following administration of IV contrast. CT of the abdomen and pelvis was performed using standard technique. Contrast: IV: 100 ml of Omnipaque 350 Oral: 450 ml of 50ML Omnipaque [address] Radiation dose: Integrated Dose-length product (DLP) for this visit = 785 mGy*cm. CT Dose Reduction Employed: Automated exposure control(AEC) and iterative recon COMPARISON: Outside, imported CT of the abdomen and pelvis dated 09/20/2021. RESULT: Limitations: None. Chest: Lines, tubes, and devices: None. Lung parenchyma and pleura: There is no pleural effusion. Mild dependent atelectasis. There is no pneumothorax or endobronchial lesion. No convincing CT evidence for pneumonia. Thoracic inlet, heart, and mediastinum: There are bilateral breast implants present. There are no pathologically enlarged axillary, mediastinal, or hilar lymph nodes. The heart is normal in size. There is a trace pericardial effusion. Abdomen/pelvis: Liver: The liver is of low-density, when compared to the spleen, suggesting fatty infiltration of liver. There is no obvious focal discrete hepatic mass. Biliary: The gallbladder is relatively collapsed. No biliary dilation. Spleen: No mass. No splenomegaly. Pancreas: There is no obvious focal discrete pancreatic mass or pancreatic ductal dilation Adrenals:No mass. Kidneys: There are bilateral extrarenal pelvises. No hydronephrosis or perinephric fluid collection. GI tract: There are no dilated loops of bowel to suggest obstruction. Lymph nodes: No abdominal lymphadenopathy. Mesentery/Peritoneum : No abdominal ascites. Vasculature: No abdominal aortic aneurysm. Pelvis: Phleboliths are seen within the pelvis. There are prominent, less than 1 cm pelvic lymph nodes, likely reactive. Patient is status post hysterectomy. There is no pelvic mass or pelvic ascites. Bones/Soft Tissues: Mild scoliosis of the spine. No destructive bony lesion. Vacuum phenomena is seen involving the sacroiliac spaces, bilaterally. There is a tiny umbilical hernia, containing omental fat. [facility] Provider, [facility] [place] - 02/06/2025 * * *Final Report* * * DATE OF EXAM: Feb 06 2025 10:57AM [facility] 0530 - CT ABD/PEL W IVCON / PROCEDURE REASON: multiple diagnoses * * * * Physician Interpretation * * * * EXAMINATION: CT CHEST WITH IV CONTRAST AND CT ABDOMEN AND PELVIS WITH IV CONTRAST CLINICAL HISTORY: Breast carcinoma. TECHNIQUE: CT of the chest from the thoracic inlet to the upper abdomen was performed following administration of IV contrast. CT of the abdomen and pelvis was performed using standard technique. Contrast: IV: 100 ml of Omnipaque 350 Oral: 450 ml of 50ML Omnipaque [address] Radiation dose: Integrated Dose-length product (DLP) for this visit = 785 mGy*cm. CT Dose Reduction Employed: Automated exposure control(AEC) and iterative recon COMPARISON: Outside, imported CT of the abdomen and pelvis dated 09/20/2021. RESULT: Limitations: None. Chest: Lines, tubes, and devices: None. Lung parenchyma and pleura: There is no pleural effusion. Mild dependent atelectasis. There is no pneumothorax or endobronchial lesion. No convincing CT evidence for pneumonia. Thoracic inlet, heart, and mediastinum: There are bilateral breast implants present. There are no pathologically enlarged axillary, mediastinal, or hilar lymph nodes. The heart is normal in size. There is a trace pericardial effusion. Abdomen/pelvis: Liver: The liver is of low-density, when compared to the spleen, suggesting fatty infiltration of liver. There is no obvious focal discrete hepatic mass. Biliary: The gallbladder is relatively collapsed. No biliary dilation. Spleen: No mass. No splenomegaly. Pancreas: There is no obvious focal discrete pancreatic mass or pancreatic ductal dilation Adrenals:No mass. Kidneys: There are bilateral extrarenal pelvises. No hydronephrosis or perinephric fluid collection. GI tract: There are no dilated loops of bowel to suggest obstruction. Lymph nodes: No abdominal lymphadenopathy. Mesentery/Peritoneum : No abdominal ascites. Vasculature: No abdominal aortic aneurysm. Pelvis: Phleboliths are seen within the pelvis. There are prominent, less than 1 cm pelvic lymph nodes, likely reactive. Patient is status post hysterectomy. There is no pelvic mass or pelvic ascites. Bones/Soft Tissues: Mild scoliosis of the spine. No destructive bony lesion. Vacuum phenomena is seen involving the sacroiliac spaces, bilaterally. There is a tiny umbilical hernia, containing omental fat. IMPRESSION IMPRESSION: No acute abdominal process is identified. No convincing CT evidence for metastatic disease to chest. No acute abdominal or pelvic process is identified. No convincing CT evidence for metastatic disease within the abdomen or pelvis. Janitor Custodian: TIANA Transcribe Date/Time: Feb 06 2025 11:13A Dictated by : DMITRI STRICKLAND MD This examination was interpreted and the report reviewed and electronically signed by: DMITRI STRICKLAND MD on Feb 06 2025 11:22AM EST [facility] CT CHEST W IVCONon 5 CT CHEST W IVCON * * *Final Report* * * DATE OF EXAM: Feb 06 2025 10:57AM [facility] 0539 - CT CHEST W IVCON / PROCEDURE REASON: multiple diagnoses * * * * Physician Interpretation * * * * EXAMINATION: CT CHEST WITH IV CONTRAST AND CT ABDOMEN AND PELVIS WITH IV CONTRAST CLINICAL HISTORY: Breast carcinoma. TECHNIQUE: CT of the chest from the thoracic inlet to the upper abdomen was performed following administration of IV contrast. CT of the abdomen and pelvis was performed using standard technique. Contrast: IV: 100 ml of Omnipaque 350 Oral: 450 ml of 50ML Omnipaque [address] Radiation dose: Integrated Dose-length product (DLP) for this visit = 785 mGy*cm. CT Dose Reduction Employed: Automated exposure control(AEC) and iterative recon COMPARISON: Outside, imported CT of the abdomen and pelvis dated 09/20/2021. RESULT: Limitations: None. Chest: Lines, tubes, and devices: None. Lung parenchyma and pleura: There is no pleural effusion. Mild dependent atelectasis. There is no pneumothorax or endobronchial lesion. No convincing CT evidence for pneumonia. Thoracic inlet, heart, and mediastinum: There are bilateral breast implants present. There are no pathologically enlarged axillary, mediastinal, or hilar lymph nodes. The heart is normal in size. There is a trace pericardial effusion. Abdomen/pelvis: Liver: The liver is of low-density, when compared to the spleen, suggesting fatty infiltration of liver. There is no obvious focal discrete hepatic mass. Biliary: The gallbladder is relatively collapsed. No biliary dilation. Spleen: No mass. No splenomegaly. Pancreas: There is no obvious focal discrete pancreatic mass or pancreatic ductal dilation Adrenals:No mass. Kidneys: There are bilateral extrarenal pelvises. No hydronephrosis or perinephric fluid collection. GI tract: There are no dilated loops of bowel to suggest obstruction. Lymph nodes: No abdominal lymphadenopathy. Mesentery/Peritoneum : No abdominal ascites. Vasculature: No abdominal aortic aneurysm. Pelvis: Phleboliths are seen within the pelvis. There are prominent, less than 1 cm pelvic lymph nodes, likely reactive. Patient is status post hysterectomy. There is no pelvic mass or pelvic ascites. Bones/Soft Tissues: Mild scoliosis of the spine. No destructive bony lesion. Vacuum phenomena is seen involving the sacroiliac spaces, bilaterally. There is a tiny umbilical hernia, containing omental fat. IMPRESSION: No acute abdominal process is identified. No convincing CT evidence for metastatic disease to chest. No acute abdominal or pelvic process is identified. No convincing CT evidence for metastatic disease within the abdomen or pelvis. Janitor Custodian: PSCB Transcribe Date/Time: Feb 06 2025 11:13A Dictated by : DMITRI STRICKLAND MD This examination was interpreted and the report reviewed and electronically signed by: DMITRI STRICKLAND MD on Feb 06 2025 11:22AM EST [id number] [facility] CT Chest W contrast Stephen * * *Final Report* * * DATE OF EXAM: Feb 06 2025 10:57AM [facility] 0539 - CT CHEST W IVCON / PROCEDURE REASON: multiple diagnoses * * * * Physician Interpretation * * * * EXAMINATION: CT CHEST WITH IV CONTRAST AND CT ABDOMEN AND PELVIS WITH IV CONTRAST CLINICAL HISTORY: Breast carcinoma. TECHNIQUE: CT of the chest from the thoracic inlet to the upper abdomen was performed following administration of IV contrast. CT of the abdomen and pelvis was performed using standard technique. Contrast: IV: 100 ml of Omnipaque 350 Oral: 450 ml of 50ML Omnipaque [address] Radiation dose: Integrated Dose-length product (DLP) for this visit = 785 mGy*cm. CT Dose Reduction Employed: Automated exposure control(AEC) and iterative recon COMPARISON: Outside, imported CT of the abdomen and pelvis dated 09/20/2021. RESULT: Limitations: None. Chest: Lines, tubes, and devices: None. Lung parenchyma and pleura: There is no pleural effusion. Mild dependent atelectasis. There is no pneumothorax or endobronchial lesion. No convincing CT evidence for pneumonia. Thoracic inlet, heart, and mediastinum: There are bilateral breast implants present. There are no pathologically enlarged axillary, mediastinal, or hilar lymph nodes. The heart is normal in size. There is a trace pericardial effusion. Abdomen/pelvis: Liver: The liver is of low-density, when compared to the spleen, suggesting fatty infiltration of liver. There is no obvious focal discrete hepatic mass. Biliary: The gallbladder is relatively collapsed. No biliary dilation. Spleen: No mass. No splenomegaly. Pancreas: There is no obvious focal discrete pancreatic mass or pancreatic ductal dilation Adrenals:No mass. Kidneys: There are bilateral extrarenal pelvises. No hydronephrosis or perinephric fluid collection. GI tract: There are no dilated loops of bowel to suggest obstruction. Lymph nodes: No abdominal lymphadenopathy. Mesentery/Peritoneum : No abdominal ascites. Vasculature: No abdominal aortic aneurysm. Pelvis: Phleboliths are seen within the pelvis. There are prominent, less than 1 cm pelvic lymph nodes, likely reactive. Patient is status post hysterectomy. There is no pelvic mass or pelvic ascites. Bones/Soft Tissues: Mild scoliosis of the spine. No destructive bony lesion. Vacuum phenomena is seen involving the sacroiliac spaces, bilaterally. There is a tiny umbilical hernia, containing omental fat. [facility] Provider, [facility] [place] - 02/06/2025 * * *Final Report* * * DATE OF EXAM: Feb 06 2025 10:57AM [facility] 0539 - CT CHEST W IVCON / PROCEDURE REASON: multiple diagnoses * * * * Physician Interpretation * * * * EXAMINATION: CT CHEST WITH IV CONTRAST AND CT ABDOMEN AND PELVIS WITH IV CONTRAST CLINICAL HISTORY: Breast carcinoma. TECHNIQUE: CT of the chest from the thoracic inlet to the upper abdomen was performed following administration of IV contrast. CT of the abdomen and pelvis was performed using standard technique. Contrast: IV: 100 ml of Omnipaque 350 Oral: 450 ml of 50ML Omnipaque [address] Radiation dose: Integrated Dose-length product (DLP) for this visit = 785 mGy*cm. CT Dose Reduction Employed: Automated exposure control(AEC) and iterative recon COMPARISON: Outside, imported CT of the abdomen and pelvis dated 09/20/2021. RESULT: Limitations: None. Chest: Lines, tubes, and devices: None. Lung parenchyma and pleura: There is no pleural effusion. Mild dependent atelectasis. There is no pneumothorax or endobronchial lesion. No convincing CT evidence for pneumonia. Thoracic inlet, heart, and mediastinum: There are bilateral breast implants present. There are no pathologically enlarged axillary, mediastinal, or hilar lymph nodes. The heart is normal in size. There is a trace pericardial effusion. Abdomen/pelvis: Liver: The liver is of low-density, when compared to the spleen, suggesting fatty infiltration of liver. There is no obvious focal discrete hepatic mass. Biliary: The gallbladder is relatively collapsed. No biliary dilation. Spleen: No mass. No splenomegaly. Pancreas: There is no obvious focal discrete pancreatic mass or pancreatic ductal dilation Adrenals:No mass. Kidneys: There are bilateral extrarenal pelvises. No hydronephrosis or perinephric fluid collection. GI tract: There are no dilated loops of bowel to suggest obstruction. Lymph nodes: No abdominal lymphadenopathy. Mesentery/Peritoneum : No abdominal ascites. Vasculature: No abdominal aortic aneurysm. Pelvis: Phleboliths are seen within the pelvis. There are prominent, less than 1 cm pelvic lymph nodes, likely reactive. Patient is status post hysterectomy. There is no pelvic mass or pelvic ascites. Bones/Soft Tissues: Mild scoliosis of the spine. No destructive bony lesion. Vacuum phenomena is seen involving the sacroiliac spaces, bilaterally. There is a tiny umbilical hernia, containing omental fat. IMPRESSION IMPRESSION: No acute abdominal process is identified. No convincing CT evidence for metastatic disease to chest. No acute abdominal or pelvic process is identified. No convincing CT evidence for metastatic disease within the abdomen or pelvis. Janitor Custodian: TIANA Transcribe Date/Time: Feb 06 2025 11:13A Dictated by : DMITRI STRICKLAND MD This examination was interpreted and the report reviewed and electronically signed by: DMITRI STRICKLAND MD on Feb 06 2025 11:22AM [facility] NURSING PROGon 02-06-2025 NURSING PROG HNO ID: [id number] Author: SHMUEL LOVE RN Service: Nursing Author Type: Registered Nurse Type: Nursing Progress Note Filed: 02/06/2025 10:00 Note Text: Radiology Service Progress Note DATE OF SERVICE: February 06, 2025 TIME: 9:59 AM PATIENT WEIGHT: 234 LBS PATIENT IDENTITY VERIFICATION COMPLETED USING TWO (2) STANDARD IDENTIFIERS: Name and Date of confirmed by patient verbally and Name and Date of confirmed by identification band. FALL SCREENING: Has the patient had 2 falls in the last year or 1 fall with injury or currently using an Ambulatory Assistive Device (Walker, Cane, Wheelchair, Crutches, etc.)? No PATIENT GENDER DATA: Assigned female at . status: : No status: NO. ALLERGIES: Reviewed and unchanged CONTRAST ALLERGY: Yes STANDARD PREMEDICATION: Prednisone 50mg Dose 1 taken at 2100, Dose 2 at 1400, and Dose 3 at 0900 Benadryl 50mg 0900 ALTERNATIVE PREMEDICATION: NA EXAM: CT -CONTRAST INDUCED NEPHROPATHY RISK FACTORS: Not applicable CREATININE: Creatinine Date Value Ref Range Status 06/21/2022 0.83 0.58 - 0.96 mg/dL Final Estimated Glomerular Filtration Rate Date Value Ref Range Status 06/21/2022 94 >=60 mL/min/1.73m? Final Comment: Estimated Glomerular Filtration Rate (eGFR) is calculated using the 2020 CKD-EPI creatinine equation. This equation utilizes serum creatinine, sex, and age as parameters. The creatinine assay has traceable calibration to isotope dilution-mass spectrometry. Refer to KDIGO guidelines for clinical interpretation. In patients with unstable renal function, e.g. those with acute kidney injury, the eGFR may not accurately reflect actual GFR. P.O.C.T. RESULTS: N/A February 06, 2025 TREATMENT: N/A IV SITE: Ambulatory: A peripheral IV was started in the Left with a Angio cath: 22 gauge. IV SITE APPEARANCE: Clean,Dry and Intact SIGNATURE: Shmuel Love RN PATIENT NAME: Margo Valero DATE: February 06, 2025 TIME: 9:59 AM Normal [facility] No Panel Informationon 02-06 IMPRESSION: No acute abdominal process is identified. No convincing CT evidence for metastatic disease to chest. No acute abdominal or pelvic process is identified. No convincing CT evidence for metastatic disease within the abdomen or pelvis. Janitor Custodian: PSCB Transcribe Date/Time: Feb 06 2025 11:13A Dictated by : DMITRI STRICKLAND MD This examination was interpreted and the report reviewed and electronically signed by: DMITRI STRICKLAND MD on Feb 06 2025 11:22AM [facility] Radiology Study observation (narrative) [facility] No Panel InformationOrdered By: Ccf Provider on 02-06-2025 [facility] Plastic Surgery Visit Report on 01-23-2025 Plastic Surgery Visit Report [facility] Plastic Reconstructive Surgery [address], [address] [place], [place] [id number] OFFICE VISIT Date of Service: 01/23/25 MR#: [id number] Acct: [id number] Name: MARGO VALERO Rep #: [id number] : 1985 Provider: Dr. Elliot Stiles MD Age/Sex: 39/F Location: [facility] Status: Signed Intake Vital Signs 12/19/24 20:43 01/08/25 15:50 Height 5 ft 3 in 5 ft 3 in Intake Visit Reasons: consult/implants collapsed, dbl mastectomy prior Chief Complaint: Breast consult Is patient in pain?: No Allergies corn Allergy (Severe, Verified 01/23/25 09:54) swelling Beef Containing Products Allergy (Mild, Verified 01/23/25 09:54) other azithromycin Allergy (Verified 01/23/25 09:54) Anaphylaxis chlorhexidine (From Hibiclens) Allergy (Verified 01/23/25 09:54) Hives iodine Allergy (Verified 01/23/25 09:54) Hives povidone-iodine (From Betadine) Allergy (Verified 01/23/25 09:54) Hives shellfish derived Allergy (Verified 01/23/25 09:54) Anaphylaxis soap (From Betadine) Allergy (Verified 01/23/25 09:54) Hives sumatriptan Allergy (Verified 01/23/25 09:54) Rash morphine Adverse Reaction (Verified 01/23/25 09:54) Other ondansetron (From Zofran) Adverse Reaction (Verified 01/23/25 09:54) Constipation Medications ???Medication ???Instructions ???Recorded ???Confirmed ???Type bupropion HCl 300 mg 24 hr tablet, 300 mg PO DAILY 12/19/24/12/20 5 History extended release semaglutide 1 mg/dose (4 mg/3 mL) 0.5 mg subcut QWEEK 12/19/24 05/0 09/14 History subcutaneous pen injector zolpidem 5 mg tablet 5 mg PO QHS 12/19/24 01/23/25 Hist ory amlodipine 5 mg tablet (Norvasc) 5 mg PO DAILY 30 days #30 tabs 10/1501/23/25 Rx clonidine HCl 0.1 mg tablet 0.1 mg PO Q8H PRN hypertensive 10/1501/23/25 Rx emergency 3 days #9 tabs PFSH Medical History Chronic pain Seasonal allergies Hypertension History of breast cancer Surgical History History of lithotripsy History of hysterectomy History of breast reconstruction Hx of bilateral mastectomy History of lumpectomy of right breast History of right breast biopsy history of right fallopian tube removal History of arthroscopy of right knee Family History Mother Breast cancer blood clots Depression Hypertension Osteoporosis Aunt Breast cancer Grandmother Breast cancer Social History Smoking Status: Never smoker alcohol intake: current alcohol intake frequency: holidays/special occasions only Alcohol type: wine substance use type: does not use what type of physical activity do you participate in: none HPI consult/implants collapsed, dbl mastectomy prior Details: Margo Valero is a delightful 39-year-old female with past medical history of bilateral mastectomy and chemotherapy for cancer of right breast in 2016 performed in [place]. Patient also underwent bilateral salpingo-oophorectom y/hysterectomy (BRCA positive). She reports wound healing issues following the reconstructive surgery with implants. Patient follows with Dr. Marion from [facility] oncology, who referred her to me out of concern for collapse of the left breast implant and potential collapse of the right breast implant. She has not had an MRI or any other imaging. No history of any radiation. 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 She was on oral blood thinner for 3 months. No other family history of blood clotting. She is not a smoker. Caprini score is 6 for history of blood clots Patient's goals for reconstruction is improve symmetry. She would also like to potentially have her abdomen addressed, as she has excess tissue. ROS General General: Yes good health; No fatigue, fever(s) or weight loss HENMT HENMT: No rhinitis, sore throat/mouth sore, nasal congestion, contacts or glaucoma Endo Endocrine: No thyroid disease, polydipsia, heat intolerance, cold intolerance, hepatitis or excessive urine Skin Skin: No Bleeding, bruising, changing moles or suspicious lesion Musc Musculoskeletal: No joint pain, joint stiffness, muscle weakness, back pain, osteoarthritis or Muscle aches/ myalgia Neuro Neurological: No headache(s), No lightheadedness and No numbness Cardio Cardiovascular: No chest pain, pacemaker, fatigue or shortness of breat with exertion Psych Psychiatric: No depression, claustrophobia or anxiety Resp Respiratory: No spitting up, shortness of breath, sleep apnea, asthma, emphysema, TB, Cough or Smoker Gastro Gastrointestinal: No diarrhea, constipation, blood in stool, nausea, vomiting or abdominal (more content not included)... [facility] SIL[facility] Tele[facility] (KUSH) MARGO VALERO ([id number]) 1985 F Date Time Provider Department 01/21/25 ROSS MARION During your visit today, we recorded the following information about you: Larissa Tang LPN 01/21/2025 10:02 AM Addendum PSS- please see phone note from 12/05/2024. Patient needs CT's scheduled at [facility] d/t iodine listed as an allergy with hives/swelling. Please contact her to schedule at [place]. Dr. Marion sent in a prednisone prep. Patient is aware of all instructions regarding prep. ERIKA Lawrence Naomi 01/21/2025 10:31 AM Signed Lvm for pt to call back and reschedule CT at [facility]. Dixie Shaikh 01/22/2025 8:38 AM Signed Left second message this morning regarding CT. Sent Teams message to radio desk. Canceled CT so that patient cannot check in on kiosk. Dixie Newton 01/22/2025 8:52 AM Signed Patient rescheduled with PSS at Radio desk stating she was unable to call in to reschedule due to being in a meeting. She is rescheduled for 02/06. Patient needs to reschedule office visit with Dr. Marion at least one week after. Canceling 01/29 OV. Please reschedule OV with Tatianna Lizama 01/22/2025 9:08 AM Addendum LV for pt to call back and schedule FU w Dr Marion. Lux Lai 02/10/2025 10:49 AM Signed Patient was scheduled to see this morning 02/10/25 @ 11:30 am and canceled. She stated that she had seen the results on her MyChart and she thinks everything looked good from what she could tell and is questioning if a rescheduled visit is necessary. Please advise. Ross Villagran DO 02/11/2025 1:27 PM Signed Scans indicated no evidence of metastatic disease. Does not need follow-up office visit at this time. I would encourage her to continue annual follow-up with Dr. Roca whom she last saw in June 2022. DO Usama Easley Pamela S, LPN 02/11/2025 1:40 PM Signed Message left on identified voicemail to check her my chart for Dr. Marion notation concerning recent CT scan results. ERIKA Baugh Pamela S, LPN 02/12/2025 4:35 PM Signed Spoke with pt, she informed she would like to do her annual follow ups with DR. Marion. Instructed to contact office in August for Follow up in November of 2025. Pt. Voiced understanding . Luisa Lopez LPN Allergies As of Date: 01/21/2025 Noted Allergy Reaction SHELLFISH CONTAINING PRODUCTS 03/01/2018 10 - Anaphylaxis BETADINE (POVIDONE-IODINE) 03/23/2017 16 - Unknown Z YVROSE (AZITHROMYCIN) 03/23/2017 16 - Unknown BEEF CONTAINING PRODUCTS 03/01/2018 4 - Hives 7 - Swelling CORN 03/01/2018 4 - Hives 7 - Swelling IODINE 03/22/2019 4 - Hives 7 - Swelling SKIN CLEANSER 03/01/2018 4 - Hives 9 - Itching Comments: Hippa Cleanse Date Reviewed: 01/21/2025 Reviewed by: Michelle Yu, RT(R) - Fully Assessed Reason for Visit: Appointment [[id number]] Patient Question [3067] Primary Visit Diagnosis:Malignant neoplasm of upper-outer quadrant of right breast in female, estrogen receptor positive (HCC) [C50.411, Z17.0] Prescriptions as of 02/12/2025 - acetaminophen (TYLENOL EXTRA STRENGTH) 500 mg tablet Take 1,000 mg by mouth every 8 hours as needed. - ibuprofen (ADVIL) 200 mg tablet Take 600 mg by mouth every 8 hours as needed. - semaglutide 0.25 mg/0.5 mL (0.5 mg/mL) subcutaneous compounded injection Inject 0.5 mg subcutaneously one time a week. - predniSONE (DELTASONE) 50 mg Take one tablet 13, 7 and 1 hour(s) prior to CT scan. - buPROPion XL (WELLBUTRIN XL) 300 mg 24 hr tablet Take 300 mg by mouth once daily. Problem List As Of Date 01/21/2025 Noted Resolved Malignant neoplasm of upper-outer quadrant of r*03/24/2017 BRCA positive [Z15.01, Z15.09] 03/01/2018 Hx of breast reconstruction [Z98.890] 06/07/2018 Encounter Status:Closed by LUISA LOPEZ on 02/12/25 [facility] 12 Lead EKGon 12-19-2024 12 Lead EKG [facility] [address] [place] [address] 12 Lead EKG 12/19/24 2146 MR#: [id number] Acct: [id number] Name: MARGO VALERO Rep #: [id number] : 1985 39 From: hCarlie Damon MD Attending Dr: Status: DEP ER Ordering Dr: Jaime Saenz DO Date: 5 Location: ED Sex: F C Admitted: Test Reason : DYSRHYTHMIA Blood Pressure : */* mmHG Vent. Rate : 68 BPM Atrial Rate : 68 BPM P-R Int : 156 ms QRS Dur : 82 ms QT Int : 416 ms P-R-T Axes : 31 47 42 degrees QTcB Int : 442 ms Normal sinus rhythm Normal ECG Confirmed by ETIENNE YOON, CHARLIE ([id number]), editor trade journal JAIR PAREDES ([id number]) on 12/20/2024 8:21:09 AM Referred By: AK Confirmed By: CHARLIE DAMON MD 12/20/24820 Date Charlie Damon MD CC: Dr. Jaime Saenz, DO; Dr. Rachelle Esparza MD Signed Normal [facility] Absolute lymphocyte countOrd ered By: Jaime Saenz on 12-19-2024 Lymphocytes Auto (Unsp spec) [#/Vol] 3.05 10*3/uL 0.83-4.51 [facility] Absolute neutrophil countOrd ered By: Jaime Saenz on 12-19-2024 Neutrophils (Bld) [#/Vol] 4.6 10*3/uL 2.0-7.7 [facility] Anion gap in Serum or Plasma Ordered By: Jaime Saenz on 12-19-2024 Anion gap [Moles/Vol] 10 mmol/L 01-02 [facility] Automated lymphocyte count a s percentage of total leukocytesOrdered By: Jaime Saenz on 12-19-2024 Lymphocytes/100 WBC Auto (Unsp spec) 35.5 % [facility] BUN/creatinine ratioOrdered By: Jaime Saenz on 12-19-2024 Urea nitrogen/Creatinine [Mass ratio] 15.1 mg/mg - [facility] Basic Metabolic Profile (BMP )on 12-19-2024 BUN/CRE 15.1 [facility] Comment on above: Performed By: #### L 500.2500, L503.7505 #### [facility] [address] [place], [address] Calcium [Mass/Vol] 9.5 mg/dL Normal 7.6-11.0 [facility] Comment on above: Performed By: #### L 500.2500, L503.7505 #### [facility] [address] [place], [address] Chloride [Moles/Vol] 105 mmol/L Normal 98-108 [facility] Comment on above: Performed By: #### L 500.2500, L503.7505 #### [facility] [address] [place], [address] CO2 [Moles/Vol] 25.5 mmol/L Normal 21.0-32.0 [facility] Comment on above: Performed By: #### L 500.2500, L503.7505 #### [facility] [address] [place], [address] Creatinine [Mass/Vol] 0.92 mg/dL Normal 0.70-1.20 [facility] Comment on above: Performed By: #### L 500.2500, L503.7505 #### [facility] [address] [place], [address] ECRCL 95.75 ml/min Normal 50-250 [facility] Comment on above: Performed By: #### L 500.2500, L503.7505 #### [facility] [address] [place], [address] GAP 10 Normal 5-15 [facility] Comment on above: Performed By: #### L 500.2500, L503.7505 #### [facility] [address] [place], [address] GFR/1.73 sq M.predicted among non-blacks MDRD (S/P/Bld) [Vol rate/Area] 82 mL/min/{1.73_m2} Normal >60 [facility] Comment on above: Result Comment: mL/m in/1.73m2 CKD-EPI Creatinine Equation (2020) Performed By: #### L 500.2500, L503.7505 #### [facility] [address] [place], [address] Glucose [Mass/Vol] 87 mg/dL Normal 70-99 [facility] Comment on above: Performed By: #### L 500.2500, L503.7505 #### [facility] [address] [place], [address] Potassium [Moles/Vol] 3.5 mmol/L Normal 3.3-5.1 [facility] Comment on above: Performed By: #### L 500.2500, L503.7505 #### [facility] [address] [place], [address] Sodium [Moles/Vol] 140 mmol/L Normal 133-145 [facility] Comment on above: Performed By: #### L 500.2500, L503.7505 #### [facility] [address] [place], [address] Urea nitrogen [Mass/Vol] 14 mg/dL Normal 4-19 [facility] Comment on above: Performed By: #### L 500.2500, L503.7505 #### [facility] [address] [place], [address] Basophil percentageOrdered B y: Jaime Saenz on 12-19-2024 Basophils/100 WBC (Bld) 0.7 % 0-1 [facility] Brain/Head without Contrasto n 12-19-2024 Brain/Head without Contrast [facility] [address] [place] [place] [address] Brain/Head without Contrast MR#: [id number] Acct: [id number] Name: MARGO VALERO Rep #: [id number] : 1985 F 39 From: Ladarius moon MD PCP: Dr. Rachelle Esparza MD Status: REG ER Study: Brain/Head without Contrast Date of Exam: 09/14 Exam# [id number] Ordering Dr: Jaime Saenz DO PROCEDURE: BRAIN/HEAD WITHOUT CONTRAST 12/19/2024 REASON FOR EXAM: HTN, IBARRA TECHNIQUE: Head CT without intravenous contrast. Coronal and Sagittal reconstruction series were provided. One or more dose reduction techniques were used (e.g., Automated exposure control, adjustment of the mA and/or kV according to patient size, use of iterative reconstruction technique. COMPARISON: MRI brain 12/14/2020 FINDINGS: * ACUTE: No acute infarct or hemorrhage. No mass effect or herniation. * BRAIN PARENCHYMA: Signal intensities are within normal limits for age. * VENTRICLES/EXTRA-AXI AL SPACES: No hydrocephalus or extra-axial fluid collections. * EXTRACRANIAL STRUCTURES: Visualized osseous structures are normal. Soft tissues are normal. Complete opacification left maxillary sinus. CT/Brain/Head without Contrast IMPRESSION: No acute intracranial abnormality. Reading Location: [facility] CC: Dr. Jaime Saenz DO; Dr. Rachelle Esparza MD Janitor Custodian: Signed Normal [facility] CBC W/Diff, Automatedon 05- Absolute Lymph 3.05 X10 3/uL Normal 0.83-4.51 [facility] Comment on above: Performed By: #### L 100.0100, L501.4021 #### [facility] [address] [place], [address] Absolute Neut 4.6 X10 3/uL Normal 2.0-7.7 [facility] Comment on above: Performed By: #### L 100.0100, L501.4021 #### [facility] [address] [place], [address] Basophils/100 WBC (Bld) 0.7 % Normal 0-1 [facility] Comment on above: Performed By: #### L 100.0100, L501.4021 #### [facility] [address] [place], [address] Eosinophils/100 WBC (Bld) 3.1 % Normal 0-5 [facility] Comment on above: Performed By: #### L 100.0100, L501.4021 #### [facility] [address] [place], [address] Erythrocyte distribution width (RBC) [Ratio] 11.9 % Normal 11.6-14.6 [facility] Comment on above: Performed By: #### L 100.0100, L501.4021 #### [facility] [address] [place], [address] Hematocrit (Bld) [Volume fraction] 40.6 % Normal 37-47 [facility] Comment on above: Performed By: #### L 100.0100, L501.4021 #### [facility] [address] [place], [address] Hemoglobin (Bld) [Mass/Vol] 14.5 g/dL Normal 12.0-15.0 [facility] Comment on above: Performed By: #### L 100.0100, L501.4021 #### [facility] [address] [place], [address] IG% 0.200 Normal 0.0-0.9 [facility] Comment on above: Result Comment: IG% - Immature Granulocytes (promyelocytes, myelocytes and metamyelocytes) > 1% indicates that a LEFT SHIFT is Present. Performed By: #### L 100.0100, L501.4021 #### [facility] [address] [place], [address] Lymphocytes/100 WBC (Bld) 35.5 % Normal 19-41 [facility] Comment on above: Performed By: #### L 100.0100, L501.4021 #### [facility] [address] [place], [address] MCH (RBC) [Entitic mass] 30.4 pg Normal 27.0-32.0 [facility] Comment on above: Performed By: #### L 100.0100, L501.4021 #### [facility] [address] [place], [address] MCHC (RBC) [Mass/Vol] 35.7 g/dL Normal 32-36 [facility] Comment on above: Performed By: #### L 100.0100, L501.4021 #### [facility] [address] [place], [address] MCV (RBC) [Entitic vol] 85.1 fL Normal 81-99 [facility] Comment on above: Performed By: #### L 100.0100, L501.4021 #### [facility] [address] [place], [address] Monocytes/100 WBC (Bld) 6.6 % Normal 0-10 [facility] Comment on above: Performed By: #### L 100.0100, L501.4021 #### [facility] [address] [place], [address] Neutrophils/100 WBC (Bld) 53.9 % Normal 47-70 [facility] Comment on above: Performed By: #### L 100.0100, L501.4021 #### [facility] [address] [place], [address] Nucleated RBC (Bld) [#/Vol] 0 10*3/uL Normal 0-5 [facility] Comment on above: Performed By: #### L 100.0100, L501.4021 #### [facility] [address] [place], [address] Platelet mean volume (Bld) [Entitic vol] 9.0 fL Normal 6.2-12.0 [facility] Comment on above: Performed By: #### L 100.0100, L501.4021 #### [facility] [address] [place], [address] Platelets (Bld) [#/Vol] 285 10*3/uL Normal 150-450 [facility] Comment on above: Performed By: #### L 100.0100, L501.4021 #### [facility] [address] [place], [address] RBC (Bld) [#/Vol] 4.77 10*6/uL Normal 4.2-5.4 [facility] Comment on above: Performed By: #### L 100.0100, L501.4021 #### [facility] [address] [place], [address] RDW SD 36.0 fl Normal 35.1-43.9 [facility] Comment on above: Performed By: #### L 100.0100, L501.4021 #### [facility] [address] [place] [place], [address] WBC (Bld) [#/Vol] 8.6 10*3/uL Normal 4.4-11.0 [facility] Comment on above: Performed By: #### L 100.0100, L501.4021 #### [facility] [address] [place], [address] Carbon dioxide, total [Moles /volume] in Central venous bloodOrdered By: Jaime Saenz on 12-19-2024 CO2 [Moles/Vol] 25.5 mmol/L 21.0-32.0 [facility] Chest PA and Lateralon 12-19 Chest PA and Lateral [facility] [address] [place] [address] Chest PA and Lateral MR#: [id number] Acct: [id number] Name: MARGO VALERO Rep #: [id number] : 1985 F 39 From: Ladarius moon MD PCP: Dr. Rachelle Espazra MD Status: REG ER Study: Chest PA and Lateral Date of Exam: 12/19/24 Exam# [id number] Ordering Dr: Jaime Saenz DO PROCEDURE: CHEST PA AND LATERAL 12/19/2024 REASON FOR EXAM: CHEST PAIN TECHNIQUE: Frontal and lateral views of the chest. COMPARISON: 08/15/2019 FINDINGS: Hardware: None Heart: Heart size is mildly enlarged. Mediastinum: The mediastinal contour is unremarkable. Lungs: The lungs are clear. Bones: The bones are unremarkable. RAD/Chest PA and Lateral IMPRESSION: NO ACUTE FINDINGS. Reading Location: [facility] CC: Dr. Jaime Saenz DO; Dr. Rachelle Esparza MD Janitor Custodian: Signed Normal [facility] Chloride assayOrdered By: Fly Saenz on 12-19-2024 Chloride [Moles/Vol] 105 mmol/L 98-108 [facility] Emergency Department Summary on 12-19-2024 Emergency Department Summary [facility] Medical Records Department [address] [place] [address] Emergency Department Summary 12/19/24 MR#: [id number] Acct: [id number] Name: MARGO VALERO Rep #: [id number] : 1985 39 From: Jaime Saenz DO PCP: Dr. Rachelle Esparza MD Status:DEP ER Location: ED HPI History of Present Illness Chief Complaint: Hypertension Narrative Narrative: Chief complaint and HPI: HTN, headache, chest tightness. 39-year-old female with past medical history of metastatic breast cancer and HTN, obesity presents for evaluation of HTN, headache, chest tightness. Patient states that she has been under a lot of stress recently as she is going through divorce and custody velázquez with her kids. She states this evening she developed a headache, chest tightness, and dizziness. She states she checked her blood pressure and it was elevated. Patient states she has a history of HTN in the past in which she was placed on medication but quickly taken off of it due to hypotension. Patient states that she did receive her weight loss IM shot today. But states she has been on this for several weeks without any issue. She states her dizziness is mostly lightheaded however she did get an episode of room spinning. She denies any fever, chills, URI symptoms, neck pain, shortness of breath, abdominal pain, nausea, vomiting. Review of systems: See HPI Medications: As listed on the chart Allergies: As listed on the chart PFSH: Per chart Vital signs: As listed on the chart. Reviewed. Physical exam: Gen: A O x3, NAD Head: Normocephalic, atraumatic Eyes: No sclera icterus, conjunctiva clear, PERRL, EOMI ENT: Moist mucous membranes Neck: Trachea midline, No JVD CV: RRR, no murmurs, no peripheral edema Resp: Lungs CTA BL, no w/r/c GI: Abd soft, non-distended, non-tender, no r/r/g Musc: Full ROM, no deformity Skin: Warm, dry Neuro: Alert, oriented, grossly intact, sensation intact Psych: Cooperative, appropriate mood and affect [facility] Medical History Chronic pain Seasonal allergies Hypertension History of breast cancer Home Medications ???Medication ???Instructions ???Recorded ???Last Taken ???Type bupropion HCl 300 mg 24 hr tablet, 300 mg PO DAILY 12/19/24 Unknown History extended release semaglutide 1 mg/dose (4 mg/3 mL) 0.5 mg subcut QWEEK 12/19/24 Unkn own History subcutaneous pen injector zolpidem 5 mg tablet 5 mg PO QHS 12/19/24 Unknown Histo ry amlodipine 5 mg tablet (Norvasc) 5 mg PO DAILY 30 days #30 tabs 10/15 Unknown Rx clonidine HCl 0.1 mg tablet 0.1 mg PO Q8H PRN hypertensive 10/15 Unknown Rx emergency 3 days #9 tabs Allergy/AdvReac Type Severity Reaction Status Date / Time corn Allergy Severe swelling Verified 12/19/24 20:43 Beef Containing Products Allergy Mild other Verified 12/19/24 20:43 azithromycin Allergy Anaphylaxis Verified 12/19/24 20:43 chlorhexidine (From Allergy Hives Verified 12/19/24 20:43 Hibiclens) iodine Allergy Hives Verified 12/19/24 20:43 povidone-iodine (From Allergy Hives Verified 12/19/24 20:43 Betadine) shellfish derived Allergy Anaphylaxis Verified 12/19/24 20:43 soap (From Betadine) Allergy Hives Verified 12/19/24 20:43 sumatriptan Allergy Rash Verified 12/19/24 20:43 morphine AdvReac Other Verified 12/19/24 20:43 ondansetron (From Zofran) AdvReac Constipatio Verified 12/19/24 20:43 n Family History Mother Breast cancer blood clots Depression Hypertension Osteoporosis Aunt Breast cancer Grandmother Breast cancer Surgical History History of lithotripsy History of hysterectomy History of breast reconstruction Hx of bilateral mastectomy History of lumpectomy of right breast History of right breast biopsy history of right fallopian tube removal History of arthroscopy of right knee Social History Smoking Status: Never smoker alcohol intake: current alcohol intake frequency: holidays/special occasions only Alcohol type: wine substance use type: does not use what type of physical activity do you participate in: none EXAM Physical Exam Const Vital Signs: 12/19/24 20:43 12/19/24 20:52 12/19/24 21:11 Temperature 97.8 F Temperature Source Oral Pulse Rate 80 Respiratory Rate 18 Respiratory Effort Normal Non-Labored Respiratory Pattern Normal Blood Pressure 177/129 H Blood Pressure Mean 145 Pulse Ox 99 96 Oxygen Delivery Method Room Air Room Air 12/19/24 21:30 12/19/24 22:00 12/19/24 22:30 Temperature Temperature Source Pulse Rate 70 81 74 (more content not included)... Normal [facility] Eosinophil percentageOrdered By: Jaime Saenz on 12-19-2024 Eosinophils/100 WBC (Bld) 3.1 % 0-5 [facility] Erythrocyte distribution wid th ratioOrdered By: Jaime Saenz on 12-19-2024 Erythrocyte distribution width (RBC) [Ratio] 11.9 % 11.6-14.6 [facility] Erythrocyte distribution wid th standard deviationOrdered By: Jaime sedrick Ascencio on 12-19-2024 Erythrocyte distribution width (RBC) [Ratio] 36.0 fl 35.1-43.9 [facility] Glomerular filtration rate ( GFR) estimation/1.73 sq m using serum, plasma, or whole bOrdered By: Jaimejese Saenz on 12-19-2024 GFR/1.73 sq M.predicted among non-blacks MDRD (S/P/Bld) [Vol rate/Area] 82 mL/min/{1.73_m2} >60 [facility] Comment on above: mL/min/1.73m2 CKD-EP I Creatinine Equation (2020) Hematocrit Auto (Bld) [Volum e fraction]Ordered By: [facility]3]Peyton on 12-19-2024 Hematocrit (Bld) [Volume fraction] 40.6 % 37-47 [facility] Hemoglobin measurementOrdere d By: [facility] 12-[facility]-2024 Hemoglobin (Bld) [Mass/Vol] 14.5 g/dL 12.0-15.0 [facility] Immature granulocytes/100 WB C Auto (Bld)Ordered By: [facility]3]sedrickSilva on 12-19-2024 Immature granulocytes/100 WBC (Bld) 0.200 % 0.0-0.9 [facility] Comment on above: IG% - Immature Granu locytes (promyelocytes, myelocytes and metamyelocytes) > 1% indicates that a LEFT SHIFT is Present. L499.0042on 12-19-2024 Trop T High Sen < 6 Normal <=14 [facility] Comment on above: Performed By: #### L 499.0042 #### [facility] [address] [place], [address] L501.4021on 12-19-2024 Trop T High Sen 6 ng/L Normal <=14 [facility] Comment on above: Order Comment: *ADD ON* Performed By: #### L 100.0100, L501.4021 #### [facility] [address] [place], [address] l503.7505on 12-19-2024 proBNP < 36 Normal <=450 [facility] Comment on above: Result Comment: Hear t Failure Unlikely: < 300 pg/mL Heart Failure Likely < 50 Years: > 450 pg/mL 50-75 Years: > 900 pg/mL >75 Years: > 1800 pg/mL Performed By: #### L 500.2500, L503.7504 #### [facility] [address] [place], [place], [address] MCV (mean corpuscular volume ) determinationOrdered By: Jaime Saenz on 12-19-2024 MCV (RBC) [Entitic vol] 85.1 fL 81-99 [facility] Mean corpuscular hemoglobin (MCH) determinationOrdered By: Jaime Saenz on 12-19-2024 MCH (RBC) [Entitic mass] 30.4 pg 27.0-32.0 [facility] Mean corpuscular hemoglobin concentration (MCHC) determinationOrdered By: Jaime Dany on 12-19-2024 MCHC (RBC) [Mass/Vol] 35.7 g/dL 32-36 [facility] Mean platelet volume determi nationOrdered By: Jaime Saenz on 12-19-2024 Platelet mean volume (Bld) [Entitic vol] 9.0 fL 6.2-12.0 [facility] Monocyte percentageOrdered B y: Jaime Saenz on 12-19-2024 Monocytes/100 WBC (Bld) 6.6 % 0-10 [facility] Natriuretic peptide.B prohor mireya N-Terminal [Mass/volume] in Serum or PlasmaOrdered By: Jaime Saenz on 12-19-2024 Natriuretic peptide.B prohormone N-Terminal [Mass/Vol] < 36 pg/mL <450 [facility] Comment on above: Heart Failure Unlike ly: < 300 pg/mLHeart Failure Likely< 50 Years: > 450 pg/mL50-75 Years: > 900 pg/mL>75 Years: > 1800 pg/mL Neutrophil percentageOrdered By: Jaime Saenz on 12-19-2024 Neutrophils/100 WBC (Bld) 53.9 % 47-70 [facility] Nucleated red blood cell per centageOrdered By: Jaime Saenz on 12-19-2024 Nucleated RBC/100 WBC (Bld) [Ratio] 0 % 0-5 [facility] Platelet countOrdered By: Fly Saenz on 12-19-2024 Platelets (Bld) [#/Vol] 285 10*3/uL 150-450 [facility] Potassium measurement (mass/ volume)Ordered By: Jaime Saenz on 12-19-2024 Potassium (Unsp spec) [Mass/Vol] 3.5 mmol/L 3.3-5.1 [facility] RBC Auto (Bld) [#/Vol]Ordere d By: Jaime Saenz on 12-19-2024 RBC (Bld) [#/Vol] 4.77 10*6/uL 4.2-5.4 [facility] Serum creatinine measurement (mass/volume)Ordered By: Jaime Saenz on 12-19-2024 Creatinine [Mass/Vol] 0.92 mg/dL 0.70-1.20 [facility] Serum glucose measurement (m ass/volume)Ordered By: Jaime Saenz on 12-19-2024 Glucose [Mass/Vol] 87 mg/dL 70-99 [facility] Serum or plasma calcium sruthi urement (mass/volume)Ordered By: Jaime Ascencio on 12-19-2024 Calcium [Mass/Vol] 9.5 mg/dL 7.6-11.0 [facility] Serum or plasma urea nitroge n measurement (mass/volume)Ordered By: Jaime Saenz on 12-19-2024 Urea nitrogen [Mass/Vol] 14 mg/dL 4-19 [facility] Sodium levelOrdered By: Franck Saenz on 12-19-2024 Sodium [Moles/Vol] 140 mmol/L 133-145 [facility] Troponin T.cardiac [Mass/vol ume] in Serum or Plasma by High sensitivity methodOrdered By: Jaime Saenz on 12-19-2024 Troponin T.cardiac High sensitivity method [Mass/Vol] < 6 ng/L <14 [facility] Troponin T.cardiac High sensitivity method [Mass/Vol] 6 ng/L <14 [facility] White blood cell (WBC) count Ordered By: Jaime Saenz on 12-19-2024 WBC (Bld) [#/Vol] 8.6 10*3/uL 4.4-11.0 [facility] BONE WHOLE BODYon 025 [place] BONE WHOLE BODY * * *Final Report* * * DATE OF EXAM: Dec 06 2024 3:50PM WON 0014 - [place] BONE WHOLE BODY / PROCEDURE REASON: Malignant neoplasm of upper-outer quadrant of right breast in female, estrogen r * * * * Physician Interpretation * * * * WHOLE BODY BONE SCAN CLINICAL HISTORY: Breast cancer. TECHNIQUE: 23.1 mCi technetium 99m MDP IV. Planar images of the whole body obtained in anterior and posterior views at approximately 3 hours post injection. COMPARISON: No prior bone scan RESULT: Portions of the upper extremities are not visualized, and cannot be assessed for pathology. Whole body and static images demonstrate no abnormal foci of increased or decreased uptake. Increased uptake in the sternoclavicular joints, shoulders, left wrist is likely due to degenerative/arthrit ic changes. Radiographic confirmation may be performed, as clinically indicated. Soft tissue and urinary bladder uptake confirmed. IMPRESSION: No scintigraphic evidence of osteoblastic metastasis. Janitor Custodian: TIANA Transcribe Date/Time: Dec 06 2024 5:49P Dictated by : TURNER NORIEGA MD This examination was interpreted and the report reviewed and electronically signed by: TURNER NORIEGA MD on Dec 06 2024 5:51PM EST [id number] Normal [facility] Whole body Bone Viewson 0 12-06-2024 IMPRESSION: No scintigraphic evidence of osteoblastic metastasis. Janitor Custodian: TIANA Transcribe Date/Time: Dec 06 2024 5:49P Dictated by : TURNER NORIEGA MD This examination was interpreted and the report reviewed and electronically signed by: TURNER NORIEGA MD on Dec 06 2024 5:51PM [facility] DIVISION OF RADIOLOGY * * *Final Report* * * DATE OF EXAM: Dec 06 2024 3:50PM WON 0014 - [place] BONE WHOLE BODY / PROCEDURE REASON: Malignant neoplasm of upper-outer quadrant of right breast in female, estrogen r * * * * Physician Interpretation * * * * WHOLE BODY BONE SCAN CLINICAL HISTORY: Breast cancer. TECHNIQUE: 23.1 mCi technetium 99m MDP IV. Planar images of the whole body obtained in anterior and posterior views at approximately 3 hours post injection. COMPARISON: No prior bone scan RESULT: Portions of the upper extremities are not visualized, and cannot be assessed for pathology. Whole body and static images demonstrate no abnormal foci of increased or decreased uptake. Increased uptake in the sternoclavicular joints, shoulders, left wrist is likely due to degenerative/arthrit ic changes. Radiographic confirmation may be performed, as clinically indicated. Soft tissue and urinary bladder uptake confirmed. DIVISION OF RADIOLOGY Provider, [facility] - 12/06/2024 * * *Final Report* * * DATE OF EXAM: Dec 06 2024 3:50PM WON 0014 - [place] BONE WHOLE BODY / PROCEDURE REASON: Malignant neoplasm of upper-outer quadrant of right breast in female, estrogen r * * * * Physician Interpretation * * * * WHOLE BODY BONE SCAN CLINICAL HISTORY: Breast cancer. TECHNIQUE: 23.1 mCi technetium 99m MDP IV. Planar images of the whole body obtained in anterior and posterior views at approximately 3 hours post injection. COMPARISON: No prior bone scan RESULT: Portions of the upper extremities are not visualized, and cannot be assessed for pathology. Whole body and static images demonstrate no abnormal foci of increased or decreased uptake. Increased uptake in the sternoclavicular joints, shoulders, left wrist is likely due to degenerative/arthrit ic changes. Radiographic confirmation may be performed, as clinically indicated. Soft tissue and urinary bladder uptake confirmed. IMPRESSION IMPRESSION: No scintigraphic evidence of osteoblastic metastasis. Janitor Custodian: TIANA Transcribe Date/Time: Dec 06 2024 5:49P Dictated by : TURNER NORIEGA MD This examination was interpreted and the report reviewed and electronically signed by: TURNER NORIEGA MD on Apr 18 2025 5:51PM [facility] Radiology Study observation (narrative) Kelly singleton [facility] Whole body Bone ViewsOrde red By: [facility] Provider on 12-06-2024 [facility] Carmen 12-05-2024 SILVINO Telephone (KUSH) MARGO VALERO ([id number]) 1985 F Date Time Provider Department 12/05/24 ROSS MARION During your visit today, we recorded the following information about you: Larissa Tang LPN 12/05/2024 12:29 PM 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 Patient is allergic to Iodine- hives/swelling. CT orders updated to WO IV or Oral contrast. Please file new orders. ERIKA Lawrence Melanie, LPN 12/05/2024 4:04 PM Addendum PSS- patient needs to be scheduled at [facility] for her CT C/A/P d/t iodine listed as an allergy with hives/swelling. Please contact her to schedule at [place]. Dr. Marion sent in a prednisone prep. Patient is aware of all instructions regarding prep. She will keep bone scan as scheduled. Neda Chandra 12/06/2024 12:05 PM Signed Spoke with patient o schedule. She is currently at an appointment and will stop to schedule Neda Waters 12/06/2024 12:48 PM Signed Patient stopped and scheduled Neda Chandra Allergies As of Date: 12/05/2024 Noted Allergy Reaction SHELLFISH CONTAINING PRODUCTS 03/01/2018 10 - Anaphylaxis BETADINE (POVIDONE-IODINE) 03/23/2017 16 - Unknown Z YVROSE (AZITHROMYCIN) 03/23/2017 16 - Unknown BEEF CONTAINING PRODUCTS 03/01/2018 4 - Hives 7 - Swelling CORN 03/01/2018 4 - Hives 7 - Swelling IODINE 03/22/2019 4 - Hives 7 - Swelling SKIN CLEANSER 03/01/2018 4 - Hives 9 - Itching Comments: Hippa Cleanse Date Reviewed: 12/05/2024 Reviewed by: Michelle Yu, RT(R) - Fully Assessed Reason for Visit: Orders [681] Primary Visit Diagnosis:Malignant neoplasm of upper-outer quadrant of right breast in female, estrogen receptor positive (HCC) [C50.411, Z17.0] Prescriptions as of 12/06/2024 - acetaminophen (TYLENOL EXTRA STRENGTH) 500 mg tablet Take 1,000 mg by mouth every 8 hours as needed. - ibuprofen (ADVIL) 200 mg tablet Take 600 mg by mouth every 8 hours as needed. - semaglutide 0.25 mg/0.5 mL (0.5 mg/mL) subcutaneous compounded injection Inject 0.5 mg subcutaneously one time a week. - predniSONE (DELTASONE) 50 mg Take one tablet 13, 7 and 1 hour(s) prior to CT scan. - buPROPion XL (WELLBUTRIN XL) 300 mg 24 hr tablet Take 300 mg by mouth once daily. Problem List As Of Date 12/05/2024 Noted Resolved Malignant neoplasm of upper-outer quadrant of r*03/24/2017 BRCA positive [Z15.01, Z15.09] 03/01/2018 Hx of breast reconstruction [Z98.890] 06/07/2018 Encounter Status:Closed by NEDA CHANDRA on 12/06/24 [facility] CNOVSPon 11-26-2024 CNOVS Visit (SP) Office (KUSH) MARGO VALERO ([id number]) 1985 F Date Time Provider Department 11/26/24 4:00 PM ROSS MARION During your visit today, we recorded the following information about you: Temperature Pulse Blood pressure Weight 98.8 degrees 81/minute 148/89 106.1 kg Height 1.619 m Ross Marion DO 11/26/2024 5:02 PM Signed Diagnosis: 1) Breast cancer. HPI: Patient is a 39-year-old female who appreciated a mass in the upper outer quadrant of her right breast in the fall of 2014. She underwent a diagnostic mammogram dated 04/29/2015 which demonstrated suspicious lesion in that area. She underwent an ultrasound-guided needle biopsy on 05/01/2015. Pathology reportedly demonstrated an ER positive/weakly KY positive HER-2 negative grade 3 invasive ductal carcinoma. She apparently underwent axillary lymph node sampling on 06/03/2015 and was found to have 1 positive lymph node out of 8. She also underwent an excisional biopsy of the primary site which demonstrated 3 foci of invasive ductal carcinoma the largest of which was 1.5 cm with positive margins. She then underwent neoadjuvant chemotherapy consisting of Adriamycin and cyclophosphamide followed by Taxol which she completed on 09/17/2015. 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 Genetic testing revealed that she was BRCA2 positive. She did not receive adjuvant radiation treatment evidently because of delayed healing from surgery which was attributed to chemotherapy. She had undergone hysterectomy and bilateral salpingo-oophorectom y several years previously and was therefore started on anastrozole after surgery. Had permanent implants placed. She was living in [place] but moved to [place] with her in 2016. She was seen by Dr. Fried for concerns of nodules along the medial aspect of the right breast. She had undergone a CT of the chest, abdomen and pelvis as well as an MRI of the breasts. Previous therapy: 1) Anastrozole. 2) Letrozole. 3) Aromasin. MRI lumbar spine 03/15/2019: FINDINGS: T12-L1: Normal endplates. Normal disc height, hydration and morphology. Normal bilateral facet joints. Normal central canal and bilateral lateral recesses. Normal bilateral intervertebral neural foramina. Normal lumbar lordosis. There is no substantial scoliosis. Normal conus medullaris that terminates at the T12 no marrow replacing lesions to suggest metastatic disease. L1-2: Normal endplates. Normal disc height, hydration and morphology. Normal bilateral facet joints. Normal central canal and bilateral lateral recesses. Normal bilateral intervertebral neural foramina. L2-3: Normal endplates. Normal disc height, hydration and morphology. Normal bilateral facet joints. Normal central canal and bilateral lateral recesses. Normal bilateral intervertebral neural foramina. L3-4: Normal endplates. Normal disc height, hydration and morphology. Normal bilateral facet joints. Normal central canal and bilateral lateral recesses. Normal bilateral intervertebral neural foramina. L4-5: Mild bilateral facet hypertrophy and moderate ligament flavum hypertrophy. 2 mm retrolisthesis of L4 and L5 with a moderate broad disc protrusion produces moderate spinal stenosis with mild bilateral lateral recess stenosis and mild bilateral neural foraminal stenosis. L5-S1: Normal endplates. Normal disc height, hydration and morphology. Normal bilateral facet joints. Normal central canal and bilateral lateral recesses. Normal bilateral intervertebral neural foramina. Normal visualized sacral ala. Mild friction related edema in the posterior subcutaneous fat. IMPRESSION: 1. Focal degenerative disc disease at L4/L5. 2. No MR evidence of metastatic disease. Presents to re-establish oncologic follow up. Interim history: Elements copied from Dr. Roca's note dated 06/21/2022 have been reviewed and updated where appropriate to reflect the current assessment and medical decision making during today's encounter. Oncology History Overview Note She started high risk breast cancer screening at age [age] (with mammogram, she notes). Known brca 2 mutation in mother who had breast cancer 36 year old with diagnosed right breast UOQ in 2014 at age 29 - she underwent a diagnostic mammo 04/29/2015 with susp lesion in the area. 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 Normal [facility] Carmen 11-26-2024 SILVINO Telephone (KUSH) MARGO VALERO ([id number]) 1985 F Date Time Provider Department 11/26/24 ROSS MARION During your visit today, we recorded the following information about you: Allergies As of Date: 11/26/2024 Noted Allergy Reaction SHELLFISH CONTAINING PRODUCTS 03/01/2018 10 - Anaphylaxis BETADINE (POVIDONE-IODINE) 03/23/2017 16 - Unknown Z YVROSE (AZITHROMYCIN) 03/23/2017 16 - Unknown BEEF CONTAINING PRODUCTS 03/01/2018 4 - Hives 7 - Swelling CORN 03/01/2018 4 - Hives 7 - Swelling IODINE 03/22/2019 4 - Hives 7 - Swelling SKIN CLEANSER 03/01/2018 4 - Hives 9 - Itching Comments: Hippa Cleanse Date Reviewed: 11/26/2024 Reviewed by: Ross Marion DO - Fully Assessed Prescriptions as of 12/09/2024 - acetaminophen (TYLENOL EXTRA STRENGTH) 500 mg tablet Take 1,000 mg by mouth every 8 hours as needed. - ibuprofen (ADVIL) 200 mg tablet Take 600 mg by mouth every 8 hours as needed. - semaglutide 0.25 mg/0.5 mL (0.5 mg/mL) subcutaneous compounded injection Inject 0.5 mg subcutaneously one time a week. - predniSONE (DELTASONE) 50 mg Take one tablet 13, 7 and 1 hour(s) prior to CT scan. - buPROPion XL (WELLBUTRIN XL) 300 mg 24 hr tablet Take 300 mg by mouth once daily. 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 Schedule both at the same time if possible. CT scans ( waiting to find out if here or [facility]) NM bone scan F/U couple days after completed Neda Chandra ChandraAntonioa 11/26/2024 5:02 PM Signed Scheduled both scans with patient Neda LynchDixie Bourgeois 11/27/2024 8:[address] scans ( waiting to find out if here or [facility])-done NM bone scan-done F/U couple days after completed Neda Chandra 11/27/2024 9:53 AM Signed Lvm to let patient know she is scheduled 12/11 for ov Neda Moralesbenitez Hutsonsumit [place] Lux 12/01/2024 9:26 AM Signed I called and confirmed the below appointment for 12/11/24 with Margo, she stated understanding. Lux Bunch Pss Allergies As of Date: 11/26/2024 Noted Allergy Reaction SHELLFISH CONTAINING PRODUCTS 03/01/2018 10 - Anaphylaxis BETADINE (POVIDONE-IODINE) 03/23/2017 16 - Unknown Z YVROSE (AZITHROMYCIN) 03/23/2017 16 - Unknown BEEF CONTAINING PRODUCTS 03/01/2018 4 - Hives 7 - Swelling CORN 03/01/2018 4 - Hives 7 - Swelling IODINE 03/22/2019 4 - Hives 7 - Swelling SKIN CLEANSER 03/01/2018 4 - Hives 9 - Itching Comments: Hippa Cleanse Date Reviewed: 11/26/2024 Reviewed by: Ross Marion DO - Fully Assessed Reason for Visit: avs 11/26 [Other] Prescriptions as of 12/01/2024 - acetaminophen (TYLENOL EXTRA STRENGTH) 500 mg tablet Take 1,000 mg by mouth every 8 hours as needed. - ibuprofen (ADVIL) 200 mg tablet Take 600 mg by mouth every 8 hours as needed. - semaglutide 0.25 mg/0.5 mL (0.5 mg/mL) subcutaneous compounded injection Inject 0.5 mg subcutaneously one time a week. - predniSONE (DELTASONE) 50 mg Take one tablet 13, 7 and 1 hour(s) prior to CT scan. - buPROPion XL (WELLBUTRIN XL) 300 mg 24 hr tablet Take 300 mg by mouth once daily. 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 She states the provider told her she would call in a steroid and a cough suppressant to [facility] in [place]. Please call and advise Pt. I told her I saw that they would call in Doxycycline if x-ray showed pneumonia, and it did not. Ky Contreras MD 06/20/2024 10:29 AM Signed Cough suppressant and steroid sent. Arlette Angulo MA 06/20/2024 10:33 AM Signed Patient notified.. The following approved medication requests have been transmitted electronically. Requested Prescriptions Signed Prescriptions Disp Refills benzonatate (TESSALON PERLE) 100 mg capsule 30 capsule 0 Sig: Take 1 capsule by mouth every 8 hours as needed for cough for up to 15 days. Authorizing Provider: [place] CONTRERAS predniSONE (DELTASONE) 10 mg tablet 15 tablet 0 Sig: Take 5 tablets by mouth once daily for 1 day, THEN 4 tablets once daily for 1 day, THEN 3 tablets once daily for 1 day, THEN 2 tablets once daily for 1 day, THEN 1 tablet once daily for 1 day. Authorizing Provider: [place] CONTRERAS MA Allergies As of Date: 06/20/2024 Noted Allergy Reaction SHELLFISH CONTAINING PRODUCTS 03/01/2018 10 - Anaphylaxis BETADINE (POVIDONE-IODINE) 03/23/2017 16 - Unknown Z YVROSE (AZITHROMYCIN) 03/23/2017 16 - Unknown BEEF CONTAINING PRODUCTS 03/01/2018 4 - Hives 7 - Swelling CORN 03/01/2018 4 - Hives 7 - Swelling IODINE 03/22/2019 4 - Hives 7 - Swelling SKIN CLEANSER 03/01/2018 4 - Hives 9 - Itching Comments: Hippa Cleanse Date Reviewed: 06/19/2024 Reviewed by: Dixie Siu MA - Fully Assessed Reason for Visit: Medication Problem [65] Order(s):benzonatate (TESSALON PERLE) 100 mg capsuleTake 1 capsule by mouth every 8 hours as needed for cough for up to 15 days.Disp: 30 capsuleRfl: 0 predniSONE (DELTASONE) 10 mg tabletTake 5 tablets by mouth once daily for 1 day, THEN 4 tablets once daily for 1 day, THEN 3 tablets once daily for 1 day, THEN 2 tablets once daily for 1 day, THEN 1 tablet once daily for 1 day.Disp: 15 tabletRfl: 0 Prescriptions as of 06/20/2024 - benzonatate (TESSALON PERLE) 100 mg capsule Take 1 capsule by mouth every 8 hours as needed for cough for up to 15 days. - predniSONE (DELTASONE) 10 mg tablet Take 5 tablets by mouth once daily for 1 day, THEN 4 tablets once daily for 1 day, THEN 3 tablets once daily for 1 day, THEN 2 tablets once daily for 1 day, THEN 1 tablet once daily for 1 day. - buPROPion XL (WELLBUTRIN XL) 300 mg 24 hr tablet TAKE 1 TABLET BY MOUTH DAILY. TO BE TAKEN WITH 150MG TABLET FOR TOTAL 450 MG DOSE. - exemestane (AROMASIN) 25 mg tablet Take 1 tablet by mouth once daily. - venlafaxine ER (EFFEXOR XR) 37.5 mg 24 hr capsule Take 1 capsule by mouth once daily. - meloxicam (MOBIC) 7.5 mg tablet Take 7.5 mg by mouth once daily. - CALCIUM ORAL Take 1,000 mg by mouth twice daily. 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 PREDNISONE 10 MG TABLET 15 t* 0 06/20/2024 06/25/2024 Route: ORAL Sig: Take 5 tablets by mouth once daily for 1 day, THEN 4 tablets once daily for 1 day, THEN 3 tablets once daily for 1 day, THEN 2 tablets once daily for 1 day, THEN 1 tablet once daily for 1 day. Encounter Status:Closed by ARLETTE ANGULO on 06/20/24 [facility] Jesus 06-19-2024 CNOV Office Visit (UCWSTR) MARGO VALERO ([id number]) 1985 F Date Time Provider Department 06/19/24 5:00 PM [facility] During your visit today, we recorded the following information about you: Temperature Pulse Respiration Blood pressure 98.7 degrees 96/minute 16/minute 128/82 Weight 106.7 kg Rosa Martinez PA 06/19/2024 6:46 PM Signed This note was created using Aditive. Subjective Margo Valero is a 38 year old female. HPI 38-year-old female presents for cough, chest congestion, fevers x 4 days. Patient states she started getting sick several days ago with cough. She states she feels congested in her chest. She has a little shortness of breath with coughing and pain when she coughs in her chest. She has had fevers up to 101 ?F. She has a little bit of runny nose. No sore throat. No vomiting or diarrhea. 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 She has been taking Tylenol, Motrin, DayQuil and NyQuil with minimal improvement in symptoms. She did a home COVID test that was negative. No past medical history on file. PAST SURGICAL HISTORY Procedure Laterality Date ARTHROSCOPY KNEE DIAGNOSTIC W/WO SYNOVIAL BX SPX Right 2008 Arthroscopy, knee LAPAROSCOPIC SUPRACERVICAL HYSTERECTOMY 2015 MAST MODF RAD W/AX LYMPH NOD W/WO PECT/OLIVIA MIN Bilateral 2015 OOPHORECTOMY PARTIAL/TOTAL UNI/BI 2013 Oophorectomy ALLERGIES Shellfish Containing Products, Betadine [Povidone-Iodine], Z Yvrose [Azithromycin], Beef Containing Products, Drew, Iodine, and Skin Cleanser MEDICATIONS buPROPion XL (WELLBUTRIN XL) 300 mg 24 hr tablet TAKE 1 TABLET BY MOUTH DAILY. TO BE TAKEN WITH 150MG TABLET FOR TOTAL 450 MG DOSE. exemestane (AROMASIN) 25 mg tablet Take 1 tablet by mouth once daily. (Patient not taking: Reported on 06/19/2024) venlafaxine ER (EFFEXOR XR) 37.5 mg 24 hr capsule Take 1 capsule by mouth once daily. (Patient not taking: Reported on 06/19/2024) meloxicam (MOBIC) 7.5 mg tablet Take 7.5 mg by mouth once daily. (Patient not taking: Reported on 06/21/2022) CALCIUM ORAL Take 1,000 mg by mouth twice daily. (Patient not taking: Reported on 06/21/2022) FAMILY HISTORY Problem Relation Age of Onset Breast Cancer Mother 37 other (htn) Mother Breast Cancer Maternal Grandmother 44 passed at 47 years of age Breast Cancer Maternal Aunt 40 Hypertension Maternal Aunt Social History Tobacco Use Smoking status: Never Smokeless tobacco: Never Substance Use Topics Alcohol use: Yes Comment: occassion Drug use: No Review of Systems Constitutional: Positive for chills and fever. HENT: Positive for rhinorrhea. Negative for congestion, ear pain and sore throat. Respiratory: Positive for cough and shortness of breath. Cardiovascular: Negative for chest pain. Gastrointestinal: Negative for diarrhea and vomiting. Objective BP 128/82 Pulse 96 Temp 37.1 ?C (98.7 ?F) Resp 16 Wt 106.7 kg (235 lb 3.7 oz) SpO2 98% BMI 39.43 kg/m? Physical Exam Vitals and nursing note reviewed. Constitutional: General: She is not in acute distress. Appearance: Normal appearance. She is not toxic-appearing. HENT: Right Ear: Tympanic membrane and ear canal normal. Left Ear: Tympanic membrane and ear canal normal. Nose: Nose normal. Mouth/Throat: Mouth: Mucous membranes are moist. Pharynx: Oropharynx is clear. Eyes: Conjunctiva/sclera: Conjunctivae normal. Cardiovascular: Rate and Rhythm: Normal rate and regular rhythm. Pulmonary: Effort: Pulmonary effort is normal. Breath sounds: Decreased breath sounds present. No wheezing, rhonchi or rales. Skin: General: Skin is warm and dry. Neurological: Mental Status: She is alert. Assessment and Plan ASSESSMENT/PLAN: 1. Acute cough - ICD9: 786.2, ICD10: R05.1 - XR CHEST 2V FRONTAL/LAT-radiolog y read pending. -If positive for pneumonia, please treat with doxycycline. -Patient advised we will call her with the result of her XR. Diagnosis and treatment plan were discussed and questions were answered to the patient's satisfaction. Pt acknowledged understanding of concepts and follow up plan. Specific signs and symptoms that would indicate the need for higher level of care were discussed in detail warranting prompt ER evaluation. ABRAHAM Saucedo Allergies As of Date: 06/19/2024 Noted Allergy Reaction SHELLFISH CONTAINING PRODUCTS 03/01/2018 10 - Anaphylaxis BETADINE (POVIDONE-IODINE) 03/23/2017 16 - Unknown Z YVROSE (AZITHROMYCIN) 03/23/2017 16 - Unknown BEEF CONTAINING PRODUCTS 03/01/2018 4 - Hives 7 - Swelling CORN 03/01/2018 4 - Hives 7 - Swelling IODINE 03/22/2019 4 - Hives 7 - Swelling SKIN CLEANSER 03/01/2018 4 - Hives 9 - Itching Comments: Hippa Cleanse Date Reviewed: 06/19/2024 Reviewed by: Dixie Siu MA - Fully Assessed Reason for Visit: Chest Congestion [236] Cmt: cou (more content not included)... [facility] (UCWSTR[facility] MARGO VALERO ([id number]) 1985 F Date Time Provider Department 06/19/24 [facility] During your visit today, we recorded the following information about you: Teri Thornton APRN.[facility] 06/19/2024 8:02 PM Signed Xray reveals atelectasis. No pneumonia VM message left and mychart message sent Allergies As of Date: 06/19/2024 Noted Allergy Reaction SHELLFISH CONTAINING PRODUCTS 03/01/2018 10 - Anaphylaxis BETADINE (POVIDONE-IODINE) 03/23/2017 16 - Unknown Z YVROSE (AZITHROMYCIN) 03/23/2017 16 - Unknown BEEF CONTAINING PRODUCTS 03/01/2018 4 - Hives 7 - Swelling CORN 03/01/2018 4 - Hives 7 - Swelling IODINE 03/22/2019 4 - Hives 7 - Swelling SKIN CLEANSER 03/01/2018 4 - Hives 9 - Itching Comments: Hippa Cleanse Date Reviewed: 06/19/2024 Reviewed by: Dixie Siu MA - Fully Assessed Reason for Visit: Results [95] Prescriptions as of 06/19/2024 - buPROPion XL (WELLBUTRIN XL) 300 mg 24 hr tablet TAKE 1 TABLET BY MOUTH DAILY. TO BE TAKEN WITH 150MG TABLET FOR TOTAL 450 MG DOSE. - exemestane (AROMASIN) 25 mg tablet Take 1 tablet by mouth once daily. - venlafaxine ER (EFFEXOR XR) 37.5 mg 24 hr capsule Take 1 capsule by mouth once daily. - meloxicam (MOBIC) 7.5 mg tablet Take 7.5 mg by mouth once daily. - CALCIUM ORAL Take 1,000 mg by mouth twice daily. 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 RESULT: Lines, tubes, and devices: None. Lungs and pleura: Right infrahilar atelectasis. No pleural effusion. No pneumothorax. Cardiomediastinal silhouette: Normal cardiomediastinal silhouette. Bones and soft tissues: Unremarkable. IMPRESSION: Right infrahilar atelectasis. Janitor Custodian: TIANA Transcribe Date/Time: Jun 19 2024 7:33P Dictated by : SISSY DIEGO MD This examination was interpreted and the report reviewed and electronically signed by: SISSY DIEGO MD on Jun 19 2024 7:33PM EST [id number] CN Normal [facility] XR Chest PA and Lateralon IMPRESSION: Right infrahilar atelectasis. Janitor Custodian: PSCB Transcribe Date/Time: Jun 19 2024 7:33P Dictated by : SISSY DIEGO MD This examination was interpreted and the report reviewed and electronically signed by: SISSY DIEGO MD on Jun 19 2024 7:33PM EST DIVISION OF RADIOLOGY * * *Final Report* * * DATE OF EXAM: Jun 19 2024 5:44PM WOX [id number] - XR CHEST 2V FRONTAL/LAT / PROCEDURE REASON: Acute cough * * * * Physician Interpretation * * * * EXAMINATION: CHEST RADIOGRAPH (2 VIEW FRONTAL & LATERAL) CLINICAL HISTORY: Acute cough MQ: XC2_6 EXAM DATE/TIME: 06/19/2024 5:44 PM COMPARISON: No relevant prior studies available. RESULT: Lines, tubes, and devices: None. Lungs and pleura: Right infrahilar atelectasis. No pleural effusion. No pneumothorax. Cardiomediastinal silhouette: Normal cardiomediastinal silhouette. Bones and soft tissues: Unremarkable. DIVISION OF RADIOLOGY Provider, [facility] [place] - 06/19/2024 * * *Final Report* * * DATE OF EXAM: Jun 19 2024 5:44PM WOX [id number] - XR CHEST 2V FRONTAL/LAT / PROCEDURE REASON: Acute cough * * * * Physician Interpretation * * * * EXAMINATION: CHEST RADIOGRAPH (2 VIEW FRONTAL & LATERAL) CLINICAL HISTORY: Acute cough MQ: XC2_6 EXAM DATE/TIME: 06/19/2024 5:44 PM COMPARISON: No relevant prior studies available. RESULT: Lines, tubes, and devices: None. Lungs and pleura: Right infrahilar atelectasis. No pleural effusion. No pneumothorax. Cardiomediastinal silhouette: Normal cardiomediastinal silhouette. Bones and soft tissues: Unremarkable. IMPRESSION IMPRESSION: Right infrahilar atelectasis. Janitor Custodian: PSCB Transcribe Date/Time: Jun 19 2024 7:33P Dictated by : SISSY DIEGO MD This examination was interpreted and the report reviewed and electronically signed by: SISSY DIEGO MD on Jun 19 2024 7:33PM EST [facility] Radiology Study observation (narrative) Kelly singleton [facility] XR Chest PA and LateralOrder ed By: [facility] Provider on 06-19-2024 [facility] Gram stain for investigation of transfusion reactionOrdered By: Eric Najera on 11-03-2023 Microscopic observation Gram stain Nom (Unsp spec) [facility] Routine wound cultureOrdered By: Eric Najera on 11-03-2023 Bacteria identified Cx Nom (Wound) No growth aerobically. [facility] Absolute lymphocyte countOrd ered By: Vicky Morales on 01-30-2023 Lymphocytes Auto (Unsp spec) [#/Vol] 2.35 10*3/uL 0.83-4.51 [facility] Basophil percentageOrdered B y: Vicky Morales on 01-30-2023 Basophils/100 WBC (Bld) 0.7 % 0-1 [facility] Bilirubin [Mass/Vol] 0.50 mg/dL 0.20-1.00 [facility] Comment on above: For patients on eltr ombopag therapy, use of Dimension [place] TBIL is not recommended. Chloride [Moles/Vol] 107 mmol/L 98-107 [facility] Eosinophils/100 WBC (Bld) 1.6 % 0-5 [facility] Glucose [Mass/Vol] 92 mg/dL 74-106 [facility] Neutrophils (Bld) [#/Vol] 3.2 10*3/uL 2.0-7.7 [facility] Neutrophils/100 WBC (Bld) 52.2 % 47-70 [facility] Potassium [Moles/Vol] 3.9 mmol/L 3.5-5.1 [facility] Protein [Mass/Vol] 7.2 g/dL 6.4-8.2 [facility] Sodium [Moles/Vol] 138 mmol/L 136-145 [facility] WBC (Bld) [#/Vol] 6.1 10*3/uL 4.4-11.0 [facility] Blood erythrocytes count (nu mber/volume)Ordered By: Vicky Morales on 01-30-2023 RBC (Bld) [#/Vol] 5.22 10*6/uL 4.2-5.4 [facility] Blood hemoglobin measurement (mass/volume)Ordered By: Vicky Morales on 01-30-2023 Hemoglobin (Bld) [Mass/Vol] 14.8 g/dL 12.0-15.0 [facility] Blood lymphocytes/100 leukoc ytesOrdered By: Vicky Moarles on 01-30-2023 Lymphocytes/100 WBC (Bld) 38.6 % 19-41 [facility] Blood monocytes/100 leukocyt esOrdered By: Vicky Morales on 01-30-2023 Monocytes/100 WBC (Bld) 6.6 % 0-10 [facility] Blood platelet mean volumeOr dered By: Vicky Morales on 01-30-2023 Platelet mean volume (Bld) [Entitic vol] 9.3 fL 6.2-12.0 [facility] Determination of erythrocyte mean corpuscular volume (MCV)Ordered By: Vicky Morales on 01-30-2023 MCV (RBC) [Entitic vol] 84.7 fL 81-99 [facility] Hematocrit Auto (Bld) [Volum e fraction]Ordered By: Vicky Morales on 01-30-2023 Hematocrit (Bld) [Volume fraction] 44.2 % 37-47 [facility] Laboratory - Chemistry and C hemistry - challengeOrdered By: Vicky Morales on 01-30-2023 ALP [Catalytic activity/Vol] 88 U/L 45-117 [facility] ALT [Catalytic activity/Vol] 27 U/L 13-56 [facility] CO2 [Moles/Vol] 23.0 mmol/L 21.0-32.0 [facility] Globulin (S) [Mass/Vol] 3.6 g/dL 2.2-4.2 [facility] Urea nitrogen/Creatinine [Mass ratio] 13.9 mg/mg 10-20 [facility] Laboratory - Hematology and Cell countsOrdered By: Vicky Morales on 01-30-2023 Erythrocyte distribution width (RBC) [Entitic vol] 38.5 fL 35.1-43.9 [facility] Erythrocyte distribution width (RBC) [Ratio] 12.6 % 11.6-14.6 [facility] Immature granulocytes/100 WBC (Bld) 0.300 % 0.0-0.9 [facility] Comment on above: IG% - Immature Granu locytes (promyelocytes, myelocytes and metamyelocytes) > 1% indicates that a LEFT SHIFT is Present. MCH (RBC) [Entitic mass] 28.4 pg 27.0-32.0 [facility] Nucleated RBC/100 WBC (Bld) [Ratio] 0 % 0-[address] [facility] Auto (RBC) [Mass/Vol]Or dered By: Vicky Morales on 01-30-2023 MCHC (RBC) [Mass/Vol] 33.5 g/dL 32-36 [facility] No Panel InformationOrdered By: Vicky Morales on 01-30-2023 Estimated GFR (MDRD) Amer 79 mL/min >60 [facility] Comment on above: GFR Calc Estimated GFR (MDRD) Non-Af Amer 65 mL/min >60 [facility] Comment on above: Non- GFR Calc Thyroid Stimulating Hormone (TSH) 1.29 uIU/mL 0.358-3.74 [facility] Platelets bldOrdered By: Bonnie Morales on 01-30-2023 Platelets (Bld) [#/Vol] 279 10*3/uL 150-450 [facility] Serum or plasma albumin sruthi urement (mass/volume)Ordered By: Vicky Morales on 01-30-2023 Albumin [Mass/Vol] 3.6 g/dL 3.2-5.0 [facility] Serum or plasma albumin/glob ulin mass ratioOrdered By: Vicky Morales on 01-30-2023 Albumin/Globulin [Mass ratio] 1.0 {ratio} 0.9-2.4 [facility] Serum or plasma calcium sruthi urement (mass/volume)Ordered By: Vicky Morales on 01-30-2023 Calcium [Mass/Vol] 9.5 mg/dL 8.5-10.1 [facility] Serum or plasma creatinine m easurement (mass/volume)Ordered By: Vicky Morales on 01-30-2023 Creatinine [Mass/Vol] 1.01 mg/dL 0.55-1.02 [facility] Comment on above: The validity of the calculated GFR & GFRAA in patients over 70 years has not been determined. Clinical correlation is essential. Serum or plasma ferritin andrey surement (mass/volume)Ordered By: Vicky Morales on 01-30-2023 Ferritin [Mass/Vol] 56 ng/mL 8-252 [facility] Serum or plasma urea nitroge n measurement (mass/volume)Ordered By: Vicky Morales on 01-30-2023 Urea nitrogen [Mass/Vol] 14 mg/dL 7-18 [facility] Thin prep Papanicolaou smear with manual screeningOrdered By: Vicky Morales on 01-30-2023 Thin prep Papanicolaou smear with manual screening 15 U/L 15-37 [facility] Thin prep Papanicolaou smear with manual screening 8 5-15 [facility] CBC W Auto Differential pane l (Bld)on 06-21-2022 Erythrocyte distribution width (RBC) [Ratio] 12.0 % 11.5 - 15.0 % [facility] Hematocrit (Bld) [Volume fraction] 43.0 % 36.0 - 46.0 % [facility] Hemoglobin (Bld) [Mass/Vol] 14.9 g/dL 11.5 - 15.5 g/dL [facility] Immature granulocytes (Bld) [#/Vol] 0.03 10*3/uL <0.10 k/uL [facility] MCH (RBC) [Entitic mass] 29.0 pg 26.0 - 34.0 pg [facility] MCHC (RBC) [Mass/Vol] 34.7 g/dL 30.5 - 36.0 g/dL [facility] MCV (RBC) [Entitic vol] 83.7 fL 80.0 - 100.0 fL [facility] Neutrophils (Bld) [#/Vol] 4.92 10*3/uL 1.45 - 7.50 k/uL [facility] Nucleated RBC (Bld) [#/Vol] <0.01 k/uL [facility] Platelet mean volume (Bld) [Entitic vol] 8.8 fL Low 9.0 - 12.7 fL [facility] Platelets (Bld) [#/Vol] 330 10*3/uL 150 - 400 k/uL [facility] RBC (Bld) [#/Vol] 5.14 10*6/uL 3.90 - 5.2 0 m/uL [facility] WBC (Bld) [#/Vol] 9.33 10*3/uL 3.70 - 11.00 k/uL [facility] Comprehensive metabolic 2000 panelon 06-21-2022 Albumin [Mass/Vol] 4.1 g/dL 3.9 - 4.9 g/dL [facility] ALP [Catalytic activity/Vol] 102 U/L 34 - 123 U/L [facility] ALT [Catalytic activity/Vol] 20 U/L 7 - 38 U/L [facility] Anion gap [Moles/Vol] 8 mmol/L Low 9 - 18 mmol/L [facility] AST [Catalytic activity/Vol] 18 U/L 13 - 35 U/L [facility] Bilirubin [Mass/Vol] 0.3 mg/dL 0.2 - 1 .3 mg/dL [facility] Calcium [Mass/Vol] 9.8 mg/dL 8.5 - 10. 2 mg/dL [facility] Chloride [Moles/Vol] 105 mmol/L 97 - 10 5 mmol/L [facility] CO2 [Moles/Vol] 28 mmol/L 22 - 30 mmol/L [facility] Creatinine [Mass/Vol] 0.83 mg/dL 0.58 - 0.96 mg/dL [facility] Estimated Glomerular Filtration Rate 94 mL/min/1.73m >=60 mL/min/1.73 m [facility] Glucose [Mass/Vol] 91 mg/dL 74 - 99 mg/dL [facility] Potassium [Moles/Vol] 4.4 mmol/L 3.7 - 5.1 mmol/L [facility] Protein [Mass/Vol] 7.3 g/dL 6.3 - 8.0 g/dL [facility] Sodium [Moles/Vol] 141 mmol/L 136 - 144 mmol/L [facility] Urea nitrogen [Mass/Vol] 10 mg/dL 7 - 21 mg/dL [facility] Office Visit: recheck chest wass masseson 03-31-2017 Dietary management education, guidance, and counseling (procedure) yes Invalid Interpretation Code [facility] Work Phone: Documentation of current medications (procedure) Done Invalid Interpretation Code [facility] Work Phone: Tobacco smoking status NHIS Never Invalid Interpretation Code [facility] Work Phone: Tobacco use [facility] Never smoker Invalid Interpretation Code [facility] Work Phone: .Urinalysis Microscopic (AO) on 03-26-2017 UA Squam Epithelial None Seen Normal None Seen [facility] ([place]) Comment on above: Performed By: #### U A, UAMICAO, PREGU ####[address] [place], [place] [address] UA WBC None Seen Normal None Seen [facility] ([place]) Comment on above: Performed By: #### U LUIS Sharma PREGU ####[id number] [place], [place] [address] Urine, erythrocytes None Seen Normal None Seen [facility] ([place]) Comment on above: Performed By: #### U A, LUIS, PREGU ####[address] [place], [place] [address] CT ABDOMEN/PELVIS W/O CONTRA STon 03-26-2017 CT ABDOMEN/PELVIS W/O CONTRAST ORIGINALCT ABDOMEN/PELVIS W/O CONTRAST CLINICAL STATEMENT: abdominal pain COMPARISON: None TECHNIQUE: Axial images were obtained from the lung bases through the pubic symphysis without contrast. Coronal reformatted images were generated from the axial dataset. This exam was performed according to our departmental dose optimization program, and includes the following measures where applicable: automated exposure control, adjustment of the mAs and/or kVp according to patient size and/or exam, and an iterative reconstruction algorithm. FINDINGS: The included lung bases are clear. There is no visible pleural or pericardial effusion. The heart is normal in size. The unenhanced liver, spleen, adrenal glands, gallbladder and pancreas are within normal limits. The bilateral kidneys are symmetric in size. There is no perinephric stranding. There are a few punctate nonobstructing bilateral renal calculi. The ureters are normal in course and caliber. The unopacified large and small bowel are normal in course and caliber. The appendix is normal. No free intraperitoneal fluid or air is identified. There is no lymphadenopathy. The aorta is normal in caliber. The bladder is well distended. The patient is status post hysterectomy. No adnexal mass. There is no visible fracture or aggressive osseous lesion. IMPRESSION: Bilateral punctate nonobstructing renal calculi. I have personally reviewed the images of this examination and agree with the resident's findings and interpretation. Interpreted By: Albert Almarazreliminary Report By: Jeromy Torres MDElectronically Signed By: Albert Almaraz MD Dictated Date: 03/25/2017 11:59:28 PM Prelim Date: 03/26/2017 12:02:44 AM Sign Date: 03/26/2017 12:19:31 AM Normal [facility] ([place]) [place] [facility] Note on 03-26-2017 [facility] [place] [facility] Note Normal [facility] ([place]) PREGUon 03-26-2017 HCG ( test) Ql (U) Negative Normal [facility] ([place]) Comment on above: Performed By: #### U A, UAMICAO, PREGU ####[id number] [place] [address] test (u) int HCG not detected. Invalid Interpretation Code [facility] ([place]) Comment on above: Performed By: #### U A, UAMICAO, PREGU ####[address] [place] [address] Patient Summary Documentson 03-26-2017 Patient Summary Documents Normal [facility] ([place]) UAon 03-26-2017 UA Appear CLEAR Normal [facility] ([place]) Comment on above: Performed By: #### U A, UAMICAO, PREGU ####[address] [place] [address] UA Blood Negative [facility] ([place]) Comment on above: Performed By: #### U A, UAMICAO, PREGU ####[address] [place] [address] UA Leuk Est Negative [facility] ([place]) Comment on above: Performed By: #### U A, UAMICAO, PREGU ####[address] [place] [address] UA Nitrite Negative [facility] ([place]) Comment on above: Performed By: #### U A, UAMICAO, PREGU ####[address] [place] [address] UA pH 6.0 [facility] ([place]) Comment on above: Performed By: #### U A, UAMICAO, PREGU ####[address] [place] [address] UA Protein Negative [facility] ([place]) Comment on above: Performed By: #### U A, UAMICAO, PREGU ####[address] [place], [place] [address] UA Spec Grav 1.025 Normal [facility] ([place]) Comment on above: Performed By: #### U A, UAMICAO, PREGU ####[address] [place], [place] [address] UA Specimen Type Clean Catch Normal [facility] ([place]) Comment on above: Performed By: #### U A, UAMICAO, PREGU ####[address] [place], [place] [address] UA Urobilinogen 1.0 E.U./dL [facility] ([place]) Comment on above: Performed By: #### U A, UAMICAO, PREGU ####[address] [place], [place] [address] Urine, color YELLOW Normal [facility] ([place]) Comment on above: Performed By: #### U A, UAMICAO, PREGU ####[address] [place], [place] [address] Urine, glucose Negative Normal [facility] ([place]) Comment on above: Performed By: #### U A, UAMICAO, PREGU ####[address] [place], [place] [address] Urine, ketones presence TRACE Normal A [facility] ([place]) Comment on above: Performed By: #### U A, UAMICAO, PREGU ####[address] [place], [place] [address] Urine, urobilinogen Negative Normal [facility] ([place]) Comment on above: Performed By: #### U A, UAMICAO, PREGU ####[address] [place], [place] [address] Office Visit: Right breast m ass hx of BRCA, right breast canceron 03-09-2017 Fall risk assessment No Invalid Interpretation Code [facility] Work Phone: Protein mass conc Done [facility] Work Phone: Tobacco smoking status NHIS Never [facility] Work Phone: Tobacco smoking status NHIS Never smoker [facility] Work Phone: Office Visiton 01-25-2017 Documentation of current medications (procedure) Done Invalid Interpretation Code [facility] Work Phone: Protein mass conc Done [facility] Work Phone: Tobacco smoking status NHIS Never [facility] Work Phone: Tobacco smoking status NHIS Never smoker [facility] Work Phone: Tobacco use [facility] Never smoker Invalid Interpretation Code [facility] Work Phone: Office Visit: Right breast m ass hx of BRCA, right breast canceron 04-29-2015 MG Breast screening Abnormal Bilateral Invalid Interpretation Code [facility] Work Phone: Vital Signs Date Time Vital Sign Value Performing Clinician Facility 03-07-2025 13:55-0400 Diastolic blood pressure 89 mm[Hg] Dr. Rachelle Esparza MD Work Phone: [facility] 03-07-2025 13:55-0400 Heart rate 106 /min Dr. Rachelle Esparza MD Work Phone: [facility] 03-07-2025 13:55-0400 Respiratory rate 18 /min Dr. Rachelle Esparza MD Work Phone: [facility] 03-07-2025 13:55-0400 SaO2% (BldA) [Mass fraction] 96 % Dr. Rachelle Esparza MD Work Phone: [facility] 03-07-2025 13:55-0400 Systolic blood pressure 128 mm[Hg] Dr. Rachelle Esparza MD Work Phone: [facility] 02-07-2025 14:16-0400 Diastolic blood pressure 93 mm[Hg] Dr. Rachelle Esparza MD Work Phone: [facility] 02-07-2025 14:16-0400 Heart rate 81 /min Dr. Rachelle Esparza MD Work Phone: 1(085)829-963473 [place] [address] 02-07-2025 14:16-0400 Respiratory rate 18 /min Dr. Rachelle Esparza MD Work Phone: 9(965)938-080586 [place] [address] 02-07-2025 14:16-0400 SaO2% (BldA) [Mass fraction] 98 % Dr. Rachelle Esparza MD Work Phone: 7(820)383-981786 [place] [address] 02-07-2025 14:16-0400 Systolic blood pressure 129 mm[Hg] Dr. Rachelle Esparza MD Work Phone: 0(181)107-099886 [place] [address] 01-08-2025 15:50-0400 Body height 160.[address] Rachelle Esparza MD Work Phone: 1(398)712-515086 [place] [address] 12-20-2024 00:38-0400 Body temperature 98 [degF] Dr. Rachelle Esparza MD Work Phone: 4(008)570-706286 [place] [address] 12-20-2024 00:38-0400 Diastolic blood pressure 100 mm[Hg] Dr. Rachelle Esparza MD Work Phone: 3(394)254-961686 [place] [address] 12-20-2024 00:38-0400 Heart rate 80 /min Dr. Rachelle Esparza MD Work Phone: 1(543)507-821386 [place] [address] 12-20-2024 00:38-0400 Respiratory rate 18 /min Dr. Rachelle Esaprza MD Work Phone: 5(819)975-222186 [place] [address] 12-20-2024 00:38-0400 SaO2% (BldA) [Mass fraction] 97 % Dr. Rachelle Esparza MD Work Phone: 7(634)441-161686 [place] [address] 12-20-2024 00:38-0400 Systolic blood pressure 144 mm[Hg] Dr. Rachelle Esparza MD Work Phone: 7(469)355-708686 [place] [address] 12-19-2024 20:43-0400 Body mass index (BMI) [Ratio] 41.4 kg/m2 Dr. Rachelle Esparza MD Work Phone: 2(690)932-559486 [place] [address] 12-19-2024 20:43-0400 Body weight 106.[address] Rachelle Esparza MD Work Phone: [facility] 11-26-2024 16:06-0400 Body height 161.9 cm Ross Geniei DO Work Phone: [facility] 11-26-2024 16:06-0400 Body mass index (BMI) [Ratio] 40.48 kg/m2 Ross Masci DO Work Phone: [facility] 11-26-2024 16:06-0400 Body temperature 98.8 [degF] Ross Masci DO Work Phone: [facility] 11-26-2024 16:06-0400 Body weight 106.14 kg Ross Masci DO Work Phone: [facility] 11-26-2024 16:06-0400 Diastolic blood pressure 89 mm[Hg] Ross Masci DO Work Phone: [facility] 11-26-2024 16:06-0400 Heart rate 81 /min Ross Masci DO Work Phone: [facility] 11-26-2024 16:06-0400 SaO2% (BldA) [Mass fraction] 99 % Ross Masci DO Work Phone: [facility] 11-26-2024 16:06-0400 Systolic blood pressure 148 mm[Hg] Ross Masci DO Work Phone: [facility] 06-19-2024 16:59-0400 Body mass index (BMI) [Ratio] 39.43 kg/m2 Krislyn Aberegg PA Work Phone: [facility] 06-19-2024 16:59-0400 Body temperature 98.71 [degF] Krislyn Aberegg PA Work Phone: [facility] 06-19-2024 16:59-0400 Body weight 106.7 kg Krislyn Aberegg PA Work Phone: [facility] 06-19-2024 16:59-0400 Diastolic blood pressure 82 mm[Hg] Krislyn Aberegg PA Work Phone: [facility] 06-19-2024 16:59-0400 Heart rate 96 /min Krislyn Aberegg PA Work Phone: [facility] 06-19-2024 16:59-0400 Respiratory rate 16 /min Krislyn Aberegg PA Work Phone: [facility] 06-19-2024 16:59-0400 SaO2% (BldA) [Mass fraction] 98 % Krislyn Aberegg PA Work Phone: [facility] 06-19-2024 16:59-0400 Systolic blood pressure 128 mm[Hg] Krislyn Aberegg PA Work Phone: [facility] 11-03-2023 14:28-0400 Body height 160.02 cm DO Vicky Carmen Work Phone: [facility] 11-03-2023 14:28-0400 Body mass index (BMI) [Ratio] 38.9 kg/m2 DO Vicky Carmen Work Phone: [facility] 11-03-2023 14:28-0400 Body temperature 98.6 [degF] DO Vicky Carmen Work Phone: [facility] 11-03-2023 14:28-0400 Body weight 99.79 kg DO Vicky Carmen Work Phone: [facility] 11-03-2023 14:28-0400 Diastolic blood pressure 86 mm[Hg] DO Vicky Carmen Work Phone: [facility] 11-03-2023 14:28-0400 Heart rate 83 /min DO Vicky Carmen Work Phone: [facility] 11-03-2023 14:28-0400 Respiratory rate 16 /min DO Vicky Carmen Work Phone: [facility] 11-03-2023 14:28-0400 SaO2% (BldA) [Mass fraction] 99 % DO Vicky Carmen Work Phone: [facility] 11-03-2023 14:28-0400 Systolic blood pressure 124 mm[Hg] DO Vicky Mroales Work Phone: [facility] 12-30-2022 07:59-0400 Body height 160.02 cm DO Vicky Morales Work Phone: [facility] 12-30-2022 07:59-0400 Body mass index (BMI) [Ratio] 39.6 kg/m2 DO Vicky Morales Work Phone: [facility] 12-30-2022 07:59-0400 Body weight 101.6 kg DO Vicky Morales Work Phone: [facility] 12-25-2022 22:06-0400 Diastolic blood pressure 94 mm[Hg] [facility] 12-25-2022 22:06-0400 Systolic blood pressure 139 mm[Hg] [facility] 12-25-2022 20:25-0400 Body height 160.02 cm [facility] 12-25-2022 20:25-0400 Body mass index (BMI) [Ratio] 40.6 kg/m2 [facility] 12-25-2022 20:25-0400 Body temperature 97.4 [degF] [facility] 12-25-2022 20:25-0400 Body weight 104.09 kg [facility] 12-25-2022 20:25-0400 Heart rate 89 /min [facility] 12-25-2022 20:25-0400 Respiratory rate 16 /min [facility] 12-25-2022 20:25-0400 SaO2% (BldA) [Mass fraction] 99 % [facility] 06-21-2022 09:52-0400 Body height 164.5 cm Arpita Roca MD Work Phone: [facility] 06-21-2022 09:52-0400 Body temperature 98.29 [degF] Arpita Roca MD Work Phone: [facility] 06-21-2022 09:52-0400 Body weight 130.77 kg Arpita Roca MD Work Phone: [facility] 06-21-2022 09:52-0400 Diastolic blood pressure 98 mm[Hg] Arpita Roca MD Work Phone: [facility] 06-21-2022 09:52-0400 Heart rate 89 /min Arpita Roca MD Work Phone: [facility] 06-21-2022 09:52-0400 Respiratory rate 20 /min Arpita Roca MD Work Phone: [facility] 06-21-2022 09:52-0400 SaO2% (BldA) [Mass fraction] 98 % Arpita Roca MD Work Phone: [facility] 06-21-2022 09:52-0400 Systolic blood pressure 149 mm[Hg] Arpita Roca MD Work Phone: [facility] 04-09-2022 16:20-0400 Body height 160.02 cm [facility] Work Phone: 04-09-2022 16:20-0400 Body mass index (BMI) [Ratio] 51.5 kg/m2 [facility] Work Phone: 04-09-2022 16:20-0400 Body temperature 96.8 [degF] [facility] Work Phone: 04-09-2022 16:20-0400 Body weight 132.1 kg [facility] Work Phone: 04-09-2022 16:20-0400 Diastolic blood pressure 104 mm[Hg] [facility] Work Phone: 04-09-2022 16:20-0400 Heart rate 81 /min [facility] Work Phone: 04-09-2022 16:20-0400 Respiratory rate 16 /min [facility] Work Phone: 04-09-2022 16:20-0400 SaO2% (BldA) [Mass fraction] 97 % [facility] Work Phone: 04-09-2022 16:20-0400 Systolic blood pressure 154 mm[Hg] [facility] Work Phone: 01-11-2022 16:22-0400 Body height 160 cm CARMENZA GARIBAY DO [facility] 01-11-2022 16:22-0400 Body temperature 97.52 [degF] CARMENZA GARIBAY DO [facility] 01-11-2022 16:22-0400 Body weight 109.1 kg CARMENZA GARIBAY DO [facility] 01-11-2022 16:22-0400 Diastolic blood pressure 66 mm[Hg] CARMENZA GARIBAY DO [facility] 01-11-2022 16:22-0400 Heart rate 77 /min CARMENZA GARIBAY DO [facility] 01-11-2022 16:22-0400 Respiratory rate 20 /min CARMENZA GARIBAY DO [facility] 01-11-2022 16:22-0400 Systolic blood pressure 139 mm[Hg] CARMENZA GARIBAY DO [facility] 03-31-2017 09:57-0400 BMI (Body Mass Index) 44.81 kg/m2 Monika Partida MD [facility] Work Phone: 03-31-2017 09:57-0400 Height 160.02 cm Monika Partida MD [facility] Work Phone: 03-31-2017 09:57-0400 Respiratory Rate 16 /min Monika Partida MD [facility] Work Phone: 03-31-2017 09:57-0400 Weight 114.76 kg Monika Partida MD [facility] Work Phone: 03-09-2017 10:54-0400 BMI (Body Mass Index) 44.99 kg/m2 Monika Partida MD [facility] Work Phone: 03-09-2017 10:54-0400 Body Temperature 97.9 [degF] Monika Partida MD [facility] Work Phone: 03-09-2017 10:54-0400 Height 160.02 cm Monika Partida MD [facility] Work Phone: 03-09-2017 10:54-0400 Pulse (Heart Rate) 80 /min Monika Partida MD [facility] Work Phone: 03-09-2017 10:54-0400 Respiratory Rate 18 /min Monika Partida MD [facility] Work Phone: 03-09-2017 10:54-0400 Weight 115.21 kg Monika Partida MD [facility] Work Phone: 01-25-2017 14:55-0400 BMI (Body Mass Index) 40.74 kg/m2 [facility] Work Phone: 01-25-2017 14:55-0400 Height 160.02 cm [facility] Work Phone: 01-25-2017 14:55-0400 Weight 104.33 kg [facility] Work Phone: Encounters Encounter Date Encounter Type Care Provider Facility Start: 03-07-2025 End: 03-07-[address] Elliot Stiles MD [facility] Work Phone: Start: 03-07-2025 End: 03-07-[address] Rachelle Esparza MD Work Phone: -[facility] Start: 03-05-2025 End: 03-10-2025 Telephone encounter Ross Marion DO Work Phone: Hematology/Oncology Start: 02-26-2025 ambulatory Elliot Stiles Facility:[facility] Start: 02-13-2025 End: 02-13-[address] Rachelle Esparza MD Work Phone: [facility] Start: 02-13-2025 End: 02-13-[address] Elliot Stiles MD [facility] Work Phone: Start: 02-13-2025 End: 02-13-2025 ambulatory [facility] Facility[facility] Start: 02-07-2025 End: 02-07-[address] Elliot Stiles MD -[facility] Work Phone: Start: 02-07-2025 End: 02-07-[address] Rachelle Esparza MD Work Phone: [facility] Work Phone: Start: 02-06-2025 ambulatory ROSS MARION Facility:[facility] Start: 02-06-2025 End: 02-06-2025 Subsequent hospital visit by physician [facility] Radiology Comment on above: Malignant neoplasm o f upper-outer quadrant of right breast in female, estrogen receptor positive (HCC) [C50.411, Z17.0] Start: 01-23-2025 End: 01-23-[address] Elliot Stiles MD [facility] Work Phone: Start: 01-23-2025 End: 01-23-[address] Rachelle Esparza MD Work Phone: [facility] Work Phone: Start: 01-21-2025 End: 02-12-2025 Telephone encounter Ross Marion DO Work Phone: Hematology/Oncology Comment on above: Appointment; Patient Question Start: 12-19-2024 End: 12-20-2024 Emergency department patient visit Dr. Jaime Klusty-Silva DO -Emergency Department Work Phone: Start: 12-06-2024 ambulatory ROSS MARION Facility:[facility] Start: 12-06-2024 End: 12-06-2024 Subsequent hospital visit by physician [facility] Work Phone: Nuclear Medicine Comment on above: Malignant neoplasm o f upper-outer quadrant of right breast in female, estrogen receptor positive (HCC) [C50.411, Z17.0] Start: 12-06-2024 ambulatory ROSS MARION Facility:[facility] Start: 12-06-2024 End: 12-06-2024 Subsequent hospital visit by physician Injection Nm [facility] Work Phone: Nuclear Medicine Comment on above: Malignant neoplasm o f upper-outer quadrant of right breast in female, estrogen receptor positive (HCC) [C50.411, Z17.0] Start: 12-05-2024 End: 12-06-2024 Telephone encounter Ross Edith Sanam DO Work Phone: Hematology/Oncology Comment on above: Orders Start: 11-26-2024 End: 11-26-2024 ambulatory Ross Marion DO Work Phone: Hematology/Oncology Comment on above: Malignant neoplasm o f upper-outer quadrant of right breast in female, estrogen receptor positive (HCC) (Primary Dx) Start: 11-26-2024 End: 11-26-2024 Patient encounter procedure Ross Edith Sanam DO Work Phone: Hematology/Oncology Start: 11-26-2024 End: 12-09-2024 Telephone encounter Ross Marion DO Work Phone: Hematology/Oncology Comment on above: avs 11/26 Start: 08-26-2024 End: 08-26-2024 Emergency department patient visit Ed Physician Provider Facility:[facility] Start: 06-20-2024 End: 06-20-2024 Telephone encounter Rosa ROSARIO Work Phone: [facility] Comment on above: Medication Problem Start: 06-19-2024 End: 06-19-2024 Subsequent hospital visit by physician Xr [facility] Work Phone: Radiology Comment on above: Acute cough [R05.1] Start: 06-19-2024 End: 06-19-2024 ambulatory RACHELLE ESPARZA Facility:[facility] Start: 06-19-2024 End: 06-19-2024 Patient encounter procedure Rosa ROSARIO Work Phone: [facility] Comment on above: Acute cough (Primary Dx) Start: 06-19-2024 End: 06-19-2024 Telephone encounter Teri Delores CABRERA Work Phone: [facility] Comment on above: Results Start: 11-03-2023 End: 11-03-2023 ambulatory DO Vicky Morales Work Phone: [facility] Work Phone: Start: 11-03-2023 End: 11-03-2023 Patient encounter procedure DO [facility] Work Phone: Start: 11-03-2023 End: 11-03-2023 Patient encounter procedure DO Vicky Carmen Work Phone: [facility] Work Phone: Start: 01-30-2023 End: 01-30-2023 ambulatory DO Vicky Morales Work Phone: [facility] Work Phone: Start: 01-30-2023 End: 01-30-2023 Patient encounter procedure DO Vickyrichi Obriennger Work Phone: [facility] Start: 12-30-2022 End: 12-30-2022 Patient encounter procedure DO Vicky Morales Work Phone: [facility] Start: 12-25-2022 End: 12-25-2022 Emergency department patient visit [facility] Start: 11-28-2022 ambulatory Poornima styles MD Work Phone: Psychiatry Comment on above: No Show Start: 08-16-2022 ambulatory Poornima styles MD Work Phone: Psychiatry Comment on above: No Show Start: 06-21-2022 End: 06-21-2022 ambulatory Arpita Roca MD Work Phone: Hematology/Oncology Comment on above: Acute right-sided lo w back pain with sciatica, sciatica laterality unspecified (Primary Dx); History of right breast cancer Start: 06-21-2022 End: 06-21-2022 Patient encounter procedure Arpita Roca MD Work Phone: [facility] Start: 04-09-2022 End: 04-09-2022 Emergency department patient visit [facility] Start: 01-11-2022 End: 01-11-2022 Emergency department patient visit CARMENZA Zuniga [place] DO [facility] Start: 03-26-2017 End: 03-26-2017 Emergency department patient visit OSMANI BenzYehuda BONILLACARO Facility:B Procedures Date Procedure Procedure Detail Performing Clinician Start: 02-13-[address] Rachelle Esparza MD Work Phone: Start: 02-06-2025 Ct abdomen & pelvis w/contrast material Ross Marion DO Work Phone: Start: 02-06-2025 Ct thorax w/contrast material Ross Marion DO Work Phone: Start: 12-19-2024 X-ray of chest, PA a nd lateral views Dr. Rachelle Esparza MD Work Phone: Start: 12-19-2024 CT of head without contrast Dr. Rachelle Esparza MD Work Phone: Start: 12-19-[address] Rachelle Esparza MD Work Phone: Start: 12-06-2024 Bone &/joint imaging whole body Ross Marion DO Work Phone: Start: 06-19-2024 Radiologic exam ches t 2 views Rosa ROSARIO Work Phone: Start: 11-03-2023 Investigation of tra nsfusion reaction DO Vicky Morales Work Phone: Start: 11-03-2023 Microbial culture, routine DO Vicky Morales Work Phone: Start: 12-30-2022 Diagnostic radiograp hy of finger DO Vicky Morales Work Phone: Start: 12-25-2022 Diagnostic radiograp hy of finger Start: 04-09-2022 Radiologic examinati on of knee Start: 03-31-2017 End: 03-31-2017 Follow Up Appt Other Monika Singleton Work Phone: Excision of breast tissue [facility]IB[facility] DO Hysterectomy CARMENZA GARIBAY DO Plan of Treatment Date Care Activity Detail Author Start: 03-04-2028 Urine microalbumin profile [facility] Start: 04-21-2025 Influenza vaccination Influenza Vacc ine (#1) [facility] Start: 02-10-2025 End: 02-10-2025 ambulatory 02/10/2025 11:30 AM EDT Visit (SP) Office Hematology/Oncology [address] [facility] [place], [place] [address] Ross Marion, DO [address] [facility] [place] [place] [id number] OV/CT 02/06* Hematology/Oncology Comment on above: OV/CT 02/06* Start: 01-06-2025 End: 01-06-2025 ambulatory 01/06/2025 3:50 PM EDT Visit (SP) Office Hematology/Oncology [address] [place] [address] Ross Marion, DO [address] [facility] [place] [address] OV/CT & NM SCAN 12/06 CT 01/02* Hematology/Oncology Comment on above: OV/CT & NM SCAN 12/06 CT 01/02* Start: 01-02-2025 End: 01-02-2025 Patient encounter procedure Radiology Comment on above: Dx: Malignant neopla sm of upper-outer quadrant of right breast in female, estrogen receptor positive (HCC) [C50.411, Z17.0] Start: 12-20-2024 [facility] Start: 12-19-2024 [facility] Start: 12-11-2024 End: 12-11-2024 ambulatory 12/11/2024 8:50 AM EDT Visit (SP) Office Hematology/Oncology [address] [place] [id number] Ross Marion DO [address] [place] [address] OV/CT & NM SCAN 12/06* Hematology/Oncology Comment on above: OV/CT & NM SCAN 12/06 * Start: 12-06-2024 End: 12-06-2024 Patient encounter procedure 12/06/2024 3:30 PM EDT Appointment Nuclear Medicine [address] [place], [place] [id number] Dx: Malignant neoplasm of upper-outer quadrant of right breast in female, estrogen receptor positive (HCC) [C50.411, Z17.0] Nuclear Medicine Comment on above: Dx: Malignant neopla sm of upper-outer quadrant of right breast in female, estrogen receptor positive (HCC) [C50.411, Z17.0] Start: 12-06-2024 End: 12-06-2024 Patient encounter procedure Nuclear Medicine Comment on above: Dx: Malignant neopla sm of upper-outer quadrant of right breast in female, estrogen receptor positive (HCC) [C50.411, Z17.0] Start: 11-03-2023 Anaerobic microbial culture Anaerobic Culture [facility] Start: 11-03-2023 Procedure [facility] Start: 11-03-2023 Source specific culture [facility] Start: 04-21-2023 Influenza vaccination INFLUENZ A (Season Ended) [facility] Start: 12-25-2022 Open tx distal phalangeal fracture each TREAT FINGER FRACTURE EACH [facility] Start: 08-21-2022 DEPRESSION ASSESSMENT DEPRESSION ASS ESSMENT [facility] Start: 04-21-2022 Influenza vaccination INFLUENZA (#1) [facility] Start: 10-28-2021 COVID-19 VACCINE (4 - Booster for Pfizer series) COVID-19 VACCINE (4 - Booster for Pfizer series) [facility] Start: 08-21-2021 DEPRESSION ASSESSMENT DEPRESSION ASS ESSMENT [facility] Start: 03-31-2017 End: 03-31-2017 Appointment Appointment [facility] Work Phone: Start: 03-31-2017 End: 03-31-2017 Follow Up Appt Other Follow Up Appt Other [facility] Work Phone: Start: 03-09-2017 End: 03-09-2017 Bilirubin (total) MRI Breast bilateral without and/or with contrast material(s) [facility] Work Phone: Start: 03-09-2017 End: 03-09-2017 Mammogram, both breasts Mammogram, Diagnostic, both breasts [facility] Work Phone: Start: 03-09-2017 End: 03-09-2017 Mri breast bilateral MRI Breast bilateral without and/or with contrast material(s) [facility] Work Phone: Start: 03-09-2017 End: 03-09-2017 Oncology Referral Oncology Referral Ross Marion, [facility] [place], [address] [place] [address]., [place], [address] [facility] Work Phone: Start: 03-09-2017 End: 03-09-2017 Us exam, breast(s) US Breast(s) [facility] Work Phone: Start: 02-17-2017 End: 02-17-2017 Appointment Appointment [facility] Work Phone: Start: 01-25-2017 End: 01-25-2017 Appointment Appointment [facility] Work Phone: Start: 01-25-2017 End: 06-07-2017 Mri joint upr extrem w/o dye MRI Joint Upper Extremity [facility] Work Phone: Start: 01-25-2017 End: 01-25-2017 X-ray exam of [facility] Work Phone: Start: 2015 HPV TESTING HPV TESTING [facility] Start: 2006 PAP TESTING PAP TESTING [facility] Start: 2006 Screening for malign ant neoplasm of cervix Cervical Cancer Screening [facility] Start: 2004 Hepatitis B Vaccine (1 of 3 - 19+ 3-dose series) Hepatitis B Vaccine (1 of 3 - 19+ 3-dose series) [facility] Start: 2003 Anxiety Screening Anxiety Screening [facility] Start: 2003 Depression Screening Depression Scre ening [facility] Start: 2003 HEPATITIS C SCREENING HEPATITIS C [facility] Start: 2003 Hepatitis C screening Hepatitis C [facility] Start: 2003 HIV SCREENING HIV SCREENING [facility] Start: 2003 HIV screening HIV Screening [facility] Start: 1985 HEPATITIS B (1 of 3 - 3-dose series) HEPATITIS B (1 of 3 - 3-dose series) [facility] End: 07-21-2023 Bone &/joint imaging whole body NM BONE WHOLE BODY Radiology Routine Acute right-sided low back pain with sciatica, sciatica laterality unspecified 1 Occurrences starting 06/21/2022 until 07/21/2023 [facility] Work Phone: Comment on above: 1 Occurrences starti ng 06/21/2022 until 07/21/2023 End: 12-26-2025 CT Abdomen and Pelvis W contrast IV CT ABD/PEL W IVCON Radiology Routine Malignant neoplasm of upper-outer quadrant of right breast in female, estrogen receptor positive (HCC) 1 Occurrences starting 11/26/2024 until 12/26/2025 [facility] Work Phone: Comment on above: 1 Occurrences starti ng 11/26/2024 until 12/26/2025 End: 12-26-2025 CT Chest W contrast IV CT CHEST W IVCON Radiology Routine Malignant neoplasm of upper-outer quadrant of right breast in female, estrogen receptor positive (HCC) 1 Occurrences starting 11/26/2024 until 12/26/2025 [facility] Comment on above: 1 Occurrences starti ng 11/26/2024 until 12/26/2025 End: 12-26-2025 NM Whole body Bone Views NM BONE WHOLE BODY Radiology Routine Malignant neoplasm of upper-outer quadrant of right breast in female, estrogen receptor positive (HCC) 1 Occurrences starting 11/26/2024 until 12/26/2025 [facility] Comment on above: 1 Occurrences starti ng 11/26/2024 until 12/26/2025 Patient Education [facility] Work Phone: Patient referral [facility] Work Phone: Procedure [facility] Immunizations Immunization Date Immunization Notes Care Provider Fa [facility] 06-04-2024 influenza virus vaccine, unspecified formulation Ross Marion DO Work Phone: [facility] 04-11-2021 Covid (Pfizer) [facility] 03-21-2021 Covid (Pfizer) [facility] 06-19-2020 influenza, injectable,quadrivalent , preservative free, pediatric [facility] 03-04-2018 tetanus toxoid, redu sandra diphtheria toxoid, and acellular pertussis vaccine, adsorbed Arpita Roca MD Work Phone: [facility] Payers Date Payer Category Payer Self-pay [id number] 2024 Self-pay [id number] 2023 Unknown MMO MMO [employer] PPO [id number] 2023-Present [phone] [address] [place] [address] PPO [id number] 2023 Unknown [id number] 2018 Private Health Insurance [id number] 2018 Private Health Insurance [id number] 2017 [facility] [id number] 2017 Unknown [facility] [employer] [id number] Private Health Insurance [id number] Unknown [id number] Unknown [id number] 62 Unknown [id number] 62 Unknown [id number] 62 Unknown [id number] 62 Unknown [id number] 62 Unknown [id number] 62 Unknown [id number] 62 Social History Date Type Detail Facility Start: 01-11-2022 End: 06-19-2024 Tobacco smoking status Never smoked tobacco (finding) [facility] Sex Assigned At Sex [facility] Start: 04-09-2022 End: 11-03-2023 Tobacco smoking status NHIS Unknown if ever smoked [facility] Start: 12-13-2020 None [facility] Start: 12-13-2020 Spouse/ Signif icant Other [facility] Start: 01-06-2020 Non-smoker [facility] Start: 1985 Sex Assigned At Female [facility] Start: 03-23-2017 End: 06-19-2024 Tobacco use and exposure Smokeless tobacco non-user [facility] Start: 10-27-2020 End: 11-26-2024 Alcohol intake Current drinker of alcohol (finding) [facility] Start: 03-23-2017 Alcohol [facility] Start: 1985 Sex Assigned At Not on file [facility] Start: 06-11-2022 End: 06-21-2022 Exposure to SARS-CoV-2 (event) Not sure [facility] Start: 06-19-2024 End: 12-06-2024 History of Social function [facility] Start: 06-19-2024 End: 12-06-2024 Tobacco use panel [facility] National Score (1-100), lower number is lower risk Not on file [facility] NEGATED: Highlighted row [facility] Medical Equipment Procedure Code Equipment Code Equipment Origin al Text Equipment Identifier Dates STENT,URETERAL 6 FR PIG [id number] FDA Start: 08-28-2019 STENT,URETERAL 6 FR PIG 6X26 FDA Start: 08-28-2019 STENT,URETERAL 6 FR PIG 6X26 FDA Start: 08-28-2019 STENT,URETERAL 6 FR PIG 6X26 FDA Start: 08-28-2019 STENT,URETERAL 6 FR PIG 6X26 FDA Start: 08-28-2019 STENT,URETERAL 6 FR PIG 6X26 FDA Start: 08-28-2019 STENT,URETERAL 6 FR PIG 6X26 FDA Start: 08-28-2019 STENT,URETERAL 6 FR PIG 6X26 FDA Start: 08-28-2019 Functional Status Date Assessment Result Facility 01-11-2022 Functional Status Independent [facility] [place] 01-11-2022 Functional Status Resting [facility] [place] Mental Status Date Assessment Result Facility 12-19-2024 Cognitive function Level Of Cons ciousness Awake;Alert;Appropriate;Follo ws Commands [facility] Work Phone: 01-11-2022 Mental Status Orientation Oriented x 4 [facility] 01-11-2022 Mental Status [facility] Clinical Notes 01-11-2022 to 03-10-2025 Telephone Encounter - Larissa Tang LPN - 03/10/2025 3:01 PM EDTTelephone Encounter - Larissa Tang LPN - 03/10/2025 3:01 PM EDTTelephone Encounter - Tatianna Mendoza - 03/10/2025 1:58 PM EDT Note Date & Type Note Facility 03-10-2025 Telephone encount er Note I spoke with the patient and explained to her that at this time, Dr. Marion does not have availability in his schedule to provide pre-operative clearance. We recommend that she follow up with Vascular Medicine for further evaluation and clearance. Patient will contact Dr. Stiles's office for a recommendation to someone closer to [place]. If she is unsuccessful, she will contact this office to be scheduled through [facility]. Patient verbalized understanding. Larissa Tang LPN [facility] 03-10-2025 Miscellaneous Notes Formattin g of this note might be different from the original. I spoke with the patient and explained to her that at this time, Dr. Marion does not have availability in his schedule to provide pre-operative clearance. We recommend that she follow up with Vascular Medicine for further evaluation and clearance. Patient will contact Dr. Stiles's office for a recommendation to someone closer to [place]. If she is unsuccessful, she will contact this office to be scheduled through [facility]. Patient verbalized understanding. Larissa Tang LPN Spoke w pt to schedule consult to [facility] med which require the pt to call and schedule, pt was given the number to call and schedule at main campus as closer locations are booked out further than she would like. Also she would like a nurse to call her as she is wondering why Dr Marion can't clear her. Tatianna Mendoza PSS- please contact patient to schedule with vascular MEDICINE for pre-op clearance. Larissa Tang LPN Thank you. Order filed. Ross Marion DO Patient returned call. Larissa, were we looking at moving patients to fit patient in or next avail? Informed patient we would contact her to schedule I spoke with Dr. Marion regarding this issue. He spoke with Dr. Stiles this morning and Dr. Stiles is aware that the patient will need to be worked up prior to forming a isaura-operative plan d/t H/O DVT. Dr. Stiles will postpone patient's surgery. I called and left a message for the patient explaining the above. We will contact the patient later this week after Dr. Marion's return. Larissa Tang LPN Patient called stating she is needing an appointment with Dr. Marion. She states Dr. Stiles spoke with Dr. Marion regarding a scheduled surgery for patient on 03/12. Dr. Marion informed Dr. Stiles that patient would need to be seen. Patient states Dr. Stiles's office informed her that there are no openings prior to surgery, and I informed patient the same. She is asking if she is able to see another provider. She states she needs to have something scheduled or surgery will be canceled today. Please advise. documented in this encounter [facility] 03-10-2025 Telephone encount er Note Spoke w pt to schedule consult to [facility] which require the pt to call and schedule, pt was given the number to call and schedule at main [place] as closer locations are booked out further than she would like. Also she would like a nurse to call her as she is wondering why Dr Marion can't clear her. Tatianna Mendoza [facility] 03-10-2025 Telephone encount er Note PSS- please contact patient to schedule with vascular MEDICINE for pre-op clearance. Larissa Tang LPN [facility] 03-10-2025 Telephone encount er Note Thank you. Order filed. Ross Marion DO [facility] 03-10-2025 Telephone encount er Note Patient returned call. Larissa, were we looking at moving patients to fit patient in or next avail? Informed patient we would contact her to schedule [facility] Work Phone: 03-05-2025 Telephone encount er Note I spoke with Dr. Marion regarding this issue. He spoke with Dr. Stiles this morning and Dr. Stiles is aware that the patient will need to be worked up prior to forming a isaura-operative plan d/t H/O DVT. Dr. Stiles will postpone patient's surgery. I called and left a message for the patient explaining the above. We will contact the patient later this week after Dr. Marion's return. Larissa Tang LPN [facility] 03-05-2025 Telephone encount er Note Patient called stating she is needing an appointment with Dr. Marion. She states Dr. Stiles spoke with Dr. Marion regarding a scheduled surgery for patient on 03/12. Dr. Marion informed Dr. Stiles that patient would need to be seen. Patient states Dr. Stiles's office informed her that there are no openings prior to surgery, and I informed patient the same. She is asking if she is able to see another provider. She states she needs to have something scheduled or surgery will be canceled today. Please advise. [facility] 02-14-2025 Radiology Diagnostic study note [facility] [address] [place] [address] Breast Limited Unilateral MR#: [id number] Acct: [id number] Name: MARGO VALERO Rep #: [id number] : 1985 F 39 From: Jamison Moore MD PCP: Dr. Mallory Robertson MD Status: REG CL I Study:Breast Limited Unilateral Date of Exam: 02/13/25 Exam# [id number] Ordering Dr: Jenny Stiles MD PROCEDURE: BREAST LIMITED UNILATERAL 02/13/2025 REASON FOR EXAM: RULE OUT RUPTURE TECHNIQUE: BREAST LIMITED UNILATERAL COMPARISON: None FINDINGS: Right breast ultrasound was targeted to the entire breast.. Imaging of the breast prosthesis was performed. There is evidence of shadowing with the linear no. This is suggestive of rupture of the implant. US/Breast Limited Unilateral IMPRESSION: Findings suggestive of rupture of the implant. Follow-up code: MRI Recommended BI-RADS category 0 Reading Location: [id number] CC: Dr. Mallory Robertson MD; Dr. Elliot Stiles MD ~ Janitor Custodian: Signed [facility] 02-14-2025 Radiology Diagnostic study note [facility] [address] [place] [address] Breast Limited Unilateral MR#: [id number] Acct: [id number] Name: MARGO VALERO Rep #: [id number] : 1985 F 39 From: Jamison Moore MD PCP: Dr. Mallory Robertson MD Status: REG CL I Study:Breast Limited Unilateral Date of Exam: 02/13/25 Exam# [id number] Ordering Dr: Jenny Stiles MD PROCEDURE: BREAST LIMITED UNILATERAL 02/13/2025 REASON FOR EXAM: RULE OUT RUPTURE TECHNIQUE: BREAST LIMITED UNILATERAL COMPARISON: None FINDINGS: Left breast ultrasound was targeted to the entire breast.. Assessment of the left breast implant was obtained. There is evidence of dense shadowing with linear hyperechoic lines known as stepladder sign. This is suggestive rupture. US/Breast Limited Unilateral IMPRESSION: Impression: Findings suggestive of implant rupture. Correlation with MRI recommended. Birads: BI-RADS 0: INCOMPLETE - NEED ADDITIONAL IMAGING EVALUATION. Reading Location: [id number] CC: Dr. Mallory Robertson MD; Dr. Elliot Stiles MD ~ Janitor Custodian: Signed [facility] 02-12-2025 Telephone encount er Note Spoke with pt, she informed she would like to do her annual follow ups with DR. Marion. Instructed to contact office in August for Follow up in November of 2025. Pt. Voiced understanding . Luisa Lopez LPN [facility] 02-12-2025 Miscellaneous Notes Formattin g of this note might be different from the original. Spoke with pt, she informed she would like to do her annual follow ups with DR. Marion. Instructed to contact office in August for Follow up in November of 2025. Pt. Voiced understanding . Luisa Lopez LPN Message left on identified voicemail to check her my chart for Dr. Marion notation concerning recent CT scan results. Luisa Lopez LPN Scans indicated no evidence of metastatic disease. Does not need follow-up office visit at this time. I would encourage her to continue annual follow-up with Dr. Roca whom she last saw in June 2022. Ross Marion DO Patient was scheduled to see this morning 02/10/25 @ 11:30 am and canceled. She stated that she had seen the results on her MyChart and she thinks everything looked good from what she could tell and is questioning if a rescheduled visit is necessary. Please advise. Lux Buchanan LVM for pt to call back and schedule FU w Dr Marion. Tatianna Mendoza Patient rescheduled with ANTONIO at Radio desk stating she was unable to call in to reschedule due to being in a meeting. She is rescheduled for 02/06. Patient needs to reschedule office visit with Dr. Marion at least one week after. Canceling 01/29 OV. Please reschedule OV with Dr. Marion Left second message this morning regarding CT. Sent Teams message to radio desk. Canceled CT so that patient cannot check in on kiosk. Lvm for pt to call back and reschedule CT at [facility]. Tatianna Mendoza PSS- please see phone note from 12/05/2024. Patient needs CT's scheduled at [facility] d/t iodine listed as an allergy with hives/swelling. Please contact her to schedule at [place]. Dr. Marion sent in a prednisone prep. Patient is aware of all instructions regarding prep. Larissa Tang LPN documented in this encounter [facility] 02-11-2025 Telephone encount er Note Message left on identified voicemail to check her my chart for Dr. Marion notation concerning recent CT scan results. Luisa Lopez LPN [facility] 02-11-2025 Telephone encount er Note Scans indicated no evidence of metastatic disease. Does not need follow-up office visit at this time. I would encourage her to continue annual follow-up with Dr. Roca whom she last saw in June 2022. Ross Marion DO [facility] 02-10-2025 Telephone encount er Note Patient was scheduled to see this morning 02/10/25 @ 11:30 am and canceled. She stated that she had seen the results on her MyChart and she thinks everything looked good from what she could tell and is questioning if a rescheduled visit is necessary. Please advise. Lux Bunch Pss [facility] 02-06-2025 History of Presen t illness Narrative Radiology Service Progress Note PATIENT NAME: Margo Valero DATE OF SERVICE: February 06, 2025 TIME: 10:41 AM PATIENT IDENTITY VERIFICATION COMPLETED USING TWO (2) IDENTIFIERS: Name and Date of confirmed by patient verbally and Name and Date of confirmed by identification band. FALL SCREENING: Has the patient had 2 falls in the last year or 1 fall with injury or currently using an Ambulatory Assistive Device (Walker, Cane, Wheelchair, Crutches, etc.)? No PATIENT GENDER DATA: Assigned female at . status: : No status: NO. PATIENT RELEVANT IMPLANT DATA REVIEWED: Yes PATIENT PRESENTS WITH AN IMPLANTABLE OR ATTACHED INTEGRATED LOGISTICS PROGRAMS DIRECTOR: No RADIOLOGY DEPARTMENT: CT; Exam(s) Completed: Chest Abdomen Pelvis PERIPHERAL IV DATA: Site assessment: Clean,Dry and Intact, Site disposition Discontinued SIGNED BY: TECHNOLOGIST Kalpesh February 06, 2025 10:41 AM documented in this encounter [facility] 02-06-2025 Note HNO ID: [id number] Author: KATHY GOLDSTEIN TECHNOLOGIST Service: Radiology Author Type: Technologist Type: Progress Notes Filed: 02/06/2025 10:56 Note Text: Radiology Service Progress Note PATIENT NAME: Margo Valero DATE OF SERVICE: February 06, 2025 TIME: 10:41 AM PATIENT IDENTITY VERIFICATION COMPLETED USING TWO (2) IDENTIFIERS: Name and Date of confirmed by patient verbally and Name and Date of confirmed by identification band. FALL SCREENING: Has the patient had 2 falls in the last year or 1 fall with injury or currently using an Ambulatory Assistive Device (Walker, Cane, Wheelchair, Crutches, etc.)? No PATIENT GENDER DATA: Assigned female at . status: : No status: NO. PATIENT RELEVANT IMPLANT DATA REVIEWED: Yes PATIENT PRESENTS WITH AN IMPLANTABLE OR ATTACHED INTEGRATED LOGISTICS PROGRAMS DIRECTOR: No RADIOLOGY DEPARTMENT: CT; Exam(s) Completed: Chest Abdomen Pelvis PERIPHERAL IV DATA: Site assessment: Clean,Dry and Intact, Site disposition Discontinued SIGNED BY: Kathy Goldstein TECHNOLOGIST February 06, 2025 10:41 AM [facility] 02-06-2025 Nurse Note Radiology Service Progress Note DATE OF SERVICE: February 06, 2025 TIME: 9:59 AM PATIENT WEIGHT: 234 LBS PATIENT IDENTITY VERIFICATION COMPLETED USING TWO (2) STANDARD IDENTIFIERS: Name and Date of confirmed by patient verbally and Name and Date of confirmed by identification band. FALL SCREENING: Has the patient had 2 falls in the last year or 1 fall with injury or currently using an Ambulatory Assistive Device (Walker, Cane, Wheelchair, Crutches, etc.)? No PATIENT GENDER DATA: Assigned female at . status: : No status: NO. ALLERGIES: Reviewed and unchanged CONTRAST ALLERGY: Yes STANDARD PREMEDICATION: Prednisone 50mg Dose 1 taken at 2100, Dose 2 at 1400, and Dose 3 at 0900 Benadryl 50mg 0900 ALTERNATIVE PREMEDICATION: NA EXAM: CT -CONTRAST INDUCED NEPHROPATHY RISK FACTORS: Not applicable CREATININE: Creatinine Date Value Ref Range Status 06/21/2022 0.83 0.58 - 0.96 mg/dL Final Estimated Glomerular Filtration Rate Date Value Ref Range Status 06/21/2022 94 >=60 mL/min/1.73m Final Comment: Estimated Glomerular Filtration Rate (eGFR) is calculated using the 2020 CKD-EPI creatinine equation. This equation utilizes serum creatinine, sex, and age as parameters. The creatinine assay has traceable calibration to isotope dilution-mass spectrometry. Refer to KDIGO guidelines for clinical interpretation. In patients with unstable renal function, e.g. those with acute kidney injury, the eGFR may not accurately reflect actual GFR. P.O.C.T. RESULTS: N/A February 06, 2025 TREATMENT: N/A IV SITE: Ambulatory: A peripheral IV was started in the Left with a Angio cath: 22 gauge. IV SITE APPEARANCE: Clean,Dry and Intact SIGNATURE: Shmuel Love RN PATIENT NAME: Margo Valero DATE: February 06, 2025 TIME: 9:59 AM [facility] 02-06-2025 Nurse Note Radiology Service Progress Note DATE OF SERVICE: February 06, 2025 TIME: 9:59 AM PATIENT WEIGHT: 234 LBS PATIENT IDENTITY VERIFICATION COMPLETED USING TWO (2) STANDARD IDENTIFIERS: Name and Date of confirmed by patient verbally and Name and Date of confirmed by identification band. FALL SCREENING: Has the patient had 2 falls in the last year or 1 fall with injury or currently using an Ambulatory Assistive Device (Walker, Cane, Wheelchair, Crutches, etc.)? No PATIENT GENDER DATA: Assigned female at . status: : No status: NO. ALLERGIES: Reviewed and unchanged CONTRAST ALLERGY: Yes STANDARD PREMEDICATION: Prednisone 50mg Dose 1 taken at 2100, Dose 2 at 1400, and Dose 3 at 0900 Benadryl 50mg 0900 ALTERNATIVE PREMEDICATION: NA EXAM: CT -CONTRAST INDUCED NEPHROPATHY RISK FACTORS: Not applicable CREATININE: Creatinine Date Value Ref Range Status 06/21/2022 0.83 0.58 - 0.96 mg/dL Final Estimated Glomerular Filtration Rate Date Value Ref Range Status 06/21/2022 94 >=60 mL/min/1.73m Final Comment: Estimated Glomerular Filtration Rate (eGFR) is calculated using the 2020 CKD-EPI creatinine equation. This equation utilizes serum creatinine, sex, and age as parameters. The creatinine assay has traceable calibration to isotope dilution-mass spectrometry. Refer to KDIGO guidelines for clinical interpretation. In patients with unstable renal function, e.g. those with acute kidney injury, the eGFR may not accurately reflect actual GFR. P.O.C.T. RESULTS: N/A February 06, 2025 TREATMENT: N/A IV SITE: Ambulatory: A peripheral IV was started in the Left with a Angio cath: 22 gauge. IV SITE APPEARANCE: Clean,Dry and Intact SIGNATURE: Shmuel Love RN PATIENT NAME: Margo Valero DATE: February 06, 2025 TIME: 9:59 AM documented in this encounter [facility] 01-23-2025 Evaluation note Diagnosis Onset Date Resolution Breast implant capsular contracture acute January 23, 2025 9:30am History of reconstruction of both breasts acute January 23, 2025 9:30am Malignant neoplasm of upper-outer quadrant of right breast, estrogen recept resolved January 23, 2025 9:30am [facility] Work Phone: 1(560) 309-491906-05-2025 Evaluation note* Diagnosis Onset Date Resolution Status Admit Date Breast implant capsular contracture acute January 23, 2025 9 :30am History of reconstruction of both breasts acute January 23, 2025 9 :30am Malignant neoplasm of upper-outer quadrant of right breast, estrogen recept resolved January 9:30am Breast asymmetry following reconstructive surgery acute January 1:49pm Complication of breast implant acute February 07, 2025 1:49pm History of reconstruction of both breasts acute February 07, 2025 1:49pm [facility] Work Phone: 1(218) 361-368206-04-2025 Telephone encounter Note* Telephone Encounter - Tatianna Mendoza - 01/22/2025 9:01 AM EDT LVM for pt to call back and schedule FU w Dr Marion. Tatianna Mendoza [facility]06-04-2025 Telephone encounter Note* Telephone Encounter - Dixie Newton - 01/22/2025 8:51 AM EDT Patient rescheduled with PSS at Radio desk stating she was unable to call in to reschedule due to being in a meeting. She is rescheduled for 02/06. Patient needs to reschedule office visit with Dr. Marion at least one week after. Canceling 01/29 OV. Please reschedule OV with Dr. Marion [facility] Work Phone: 1(503) 780-522106-04-2025 Telephone encounter Note* Telephone Encounter - Dixie Newton - 01/22/2025 8:37 AM EDT Left second message this morning regarding CT. Sent Teams message to radio desk. Canceled CT so that patient cannot check in on kiosk. [facility]06-03-2025 Telephone encounter Note* Telephone Encounter - Tatianna Mendoza - 01/21/2025 10:16 AM EDT Lvm for pt to call back and reschedule CT at [facility]. Tatianna Mendoza [facility]06-03-2025 Telephone encounter Note* Telephone Encounter - Larissa Tang LPN - 01/21/2025 9:51 AM EDT PSS- please see phone note from 12/05/2024. Patient needs CT's scheduled at [facility] d/t iodine listed as an allergy with hives/swelling. Please contact her to schedule at [place]. Dr. Marion sent in a prednisone prep. Patient is aware of all instructions regarding prep. Larissa Tang LPN [facility]04-18-2025 Telephone encounter Note* Telephone Encounter - Neda Chandra - 12/06/2024 12:48 PM EDT Patient stopped and scheduled Neda Chandra [facility]04-18-2025 Miscellaneous Notes* Telephone Encounter - Neda Chandra - 12/06/2024 12:48 PM EDT Patient stopped and scheduled Neda Chandra * Telephone Encounter - Neda Chandra - 12/06/2024 12:05 PM EDT Spoke with patient o schedule. She is currently at an appointment and will stop to schedule Neda Chandra * Telephone Encounter - Larissa Tang LPN - 12/05/2024 3:56 PM EDT PSS- patient needs to be scheduled at [facility] for her CT C/A/P d/t iodine listed as an allergy with hives/swelling. Please contact her to schedule at [place]. Dr. Marion sent in a prednisone prep. Patient is aware of all instructions regarding prep. She will keep bone scan as scheduled. * Telephone Encounter - Larissa Tang LPN - 12/05/2024 12:26 PM EDT 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 Patient is allergic to Iodine- hives/swelling. CT orders updated to WO IV or Oral contrast. Please file new orders. Larissa Tang LPN [facility] History of Present illness Narrative* Rosalia Quinteros, RT(R) - 12/06/2024 12:30 PM EDT RADIOLOGY SERVICE PROGRESS NOTE SERVICE DATE: 12/06/2024 SERVICE TIME: 12:22 PM PATIENT IDENTITY VERIFICATION COMPLETED USING TWO (2) STANDARD IDENTIFIERS: Name and Date of confirmed by patient verbally FALL SCREENING: Has the patient had 2 falls in the last year or 1 fall with injury or currently using an Ambulatory Assistive Device (Walker, Cane, Wheelchair, Crutches, etc.)? No PATIENT GENDER DATA: .female : No status: No ALLERGIES: Reviewed and unchanged MEDICATIONS REVIEWED: No PATIENT RELEVANT IMPLANT DATA REVIEWED: Not Applicable PATIENT PRESENTS WITH AN IMPLANTABLE OR ATTACHED INTEGRATED LOGISTICS PROGRAMS DIRECTOR: n/a CREATININE: Creatinine Date Value Ref Range Status 06/21/2022 0.83 0.58 - 0.96 mg/dL Final Estimated Glomerular Filtration Rate Date Value Ref Range Status 06/21/2022 94 >=60 mL/min/1.73m Final Comment: Estimated Glomerular Filtration Rate (eGFR) is calculated using the 2020 CKD-EPI creatinine equation. This equation utilizes serum creatinine, sex, and age as parameters. The creatinine assay has traceable calibration to isotope dilution- mass spectrometry. Refer to KDIGO guidelines for clinical interpretation. In patients with unstable renal function, e.g. those with acute kidney injury, the eGFRmay not accurately reflect actual GFR. P.O.C.T. RESULTS: POC done: Yes, See Lab Tab December 06, [address] PERFORMED: No IV SITE: Ambulatory: A peripheral IV was started in the Left antecubital site with a Angio cath: 24gauge. POST EXAM PIV STATUS: Discontinued PROCEDURE TYPE: NM INJECT: Whole Body Bone Scan. 23.1 mCi Tc99m MDP. No other medications given.. ADMINISTRATION TIME: 12:30 PATIENT DISCHARGED TO: Ambulatory patient, left [place] department area. Is this a therapy: No A Diagnostic radioactive procedure has taken place, with no further precautions necessary other than routine body substance precautions. More information regarding radiation safety can be found usingthis link: [email or web address]%[email or web address]%[email or web address] SIGNATURE: LOUIS Bowles) PATIENT NAME: Margo Valero DATE: December 06, 2024 TIME: 12:50 PM PAGER/CONTACT #: documented in this encounter[facility]25 NoteHNO ID: [id number] Author: ROSALIA QUINTEROS RT (R) Service: Nuclear Medicine Author Type: Technologist Type: Progress Notes Filed: 12/06/2024 12:52 Note Text: RADIOLOGY SERVICE PROGRESS NOTE SERVICE DATE: 12/06/2024 SERVICE TIME: 12:22 PM PATIENT IDENTITY VERIFICATION COMPLETED USING TWO (2) STANDARD IDENTIFIERS: Name and Date of confirmed by patient verbally FALL SCREENING: Has the patient had 2 falls in the last year or 1 fall with injury or currently using an Ambulatory Assistive Device (Walker, Cane, Wheelchair, Crutches, etc.)? No PATIENT GENDER DATA: .female : No status: No ALLERGIES: Reviewed and unchanged MEDICATIONS REVIEWED: No PATIENT RELEVANT IMPLANT DATA REVIEWED: Not Applicable PATIENT PRESENTS WITH AN IMPLANTABLE OR ATTACHED INTEGRATED LOGISTICS PROGRAMS DIRECTOR: n/a CREATININE: Creatinine Date Value Ref Range Status 06/21/2022 0.83 0.58 - 0.96 mg/dL Final Estimated Glomerular Filtration Rate Date Value Ref Range Status 06/21/2022 94 >=60 mL/min/1.73m? Final Comment: Estimated Glomerular Filtration Rate (eGFR) is calculated using the 2020 CKD-EPI creatinine equation. This equation utilizes serum creatinine, sex, and age as parameters. The creatinine assay has traceable calibration to isotope dilution-mass spectrometry. Refer to KDIGO guidelines for clinical interpretation. In patients with unstable renal function, e.g. those with acute kidney injury, the eGFR may not accurately reflect actual GFR. P.O.C.T. RESULTS: POC done: Yes, See Lab Tab December 06, [address] PERFORMED: No IV SITE: Ambulatory: A peripheral IV was started in the Left antecubital site with a Angio cath: 24 gauge. POST EXAM PIV STATUS: Discontinued PROCEDURE TYPE: NM INJECT: Whole Body Bone Scan. 23.1 mCi Tc99m MDP. No other medications given.. ADMINISTRATION TIME: 12:30 PATIENT DISCHARGED TO: Ambulatory patient, left [place] department area. Is this a therapy: No A Diagnostic radioactive procedure has taken place, with no further precautions necessary other than routine body substance precautions. More information regarding radiation safety can be found using this link: [email or web address]%20Nuclear%20Medicine%[email or web address] SIGNATURE: RT Jelena(R) PATIENT NAME: Margo Valero DATE: December 06, 2024 TIME: 12:50 PM PAGER/CONTACT #:[facility]04-18-2025 Telephone encounter Note* Telephone Encounter - Neda Chandra - 12/06/2024 12:05 PM EDT Spoke with patient o schedule. She is currently at an appointment and will stop to schedule Neda Chandra [facility]04-17-2025 Telephone encounter Note* Telephone Encounter - Larissa Tang LPN - 12/05/2024 3:56 PM EDT PSS- patient needs to be scheduled at [facility] for her CT C/A/P d/t iodine listed as an allergy with hives/swelling. Please contact her to schedule at [place]. Dr. Marion sent in a prednisone prep. Patient is aware of all instructions regarding prep. She will keep bone scan as scheduled. [facility]04-17-2025 Telephone encounter Note* Telephone Encounter - Larissa Tang LPN - 12/05/2024 12:26 PM EDT 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 Patient is allergic to Iodine- hives/swelling. CT orders updated to WO IV or Oral contrast. Please file new orders. Larissa Tang LPN [facility]04-13-2025 Telephone encounter Note* Telephone Encounter - Lux Escobar - 12/01/2024 9:25 AM EDT I called and confirmed the below appointment for 12/11/24 with Margo, sumeet stated understanding. Lux Bunch Pss [facility]04-13-2025 Miscellaneous Notes* Telephone Encounter - Lux Escobar - 12/01/2024 9:25 AM EDT I called and confirmed the below appointment for 12/11/24 with Margo, sumeet stated understanding. Lux Buchanan * Telephone Encounter - Neda Chandra - 11/27/2024 9:51 AM EDT Lvm to let patient know she is scheduled 12/11 for ov Neda Chandra * Telephone Encounter - Dixie Newton - 11/27/2024 8:[address] scans ( waiting to find out if here or [facility])-done NM bone scan-done F/U couple days after completed * Telephone Encounter - Neda Chandra - 11/26/2024 5:01 PM EDT Scheduled both scans with patient Neda Prateek * Telephone Encounter - Neda Chandra - 11/26/2024 4:51 PM EDT Patient said once confirmed we can schedule 1st available and leave her a message with dates and times. Schedule both at the same time if possible. CT scans ( waiting to find out if here or [facility]) NM bone scan F/U couple days after completed Neda Chandra documented in this [facility] Telephone encounter Note * Telephone Encounter - Neda Chandra - 11/27/2024 9:51 AM EDT Lvm to let patient know she is scheduled 12/11 for ov Neda Chandra [facility]04-09-2025 Telephone encounter Note* Telephone Encounter - Dixie Newton - 11/27/2024 8:[address] scans ( waiting to find out if here or [facility])-done NM bone scan-done F/U couple days after completed [facility] Work Phone: 1(712) 220-135404-08-2025 Telephone encounter Note* Telephone Encounter - Neda Chandra - 11/26/2024 5:01 PM EDT Scheduled both scans with patient Neda Lynchlins [facility]04-08-2025 Telephone encounter Note* Telephone Encounter - Neda Chandra - 11/26/2024 4:51 PM EDT Patient said once confirmed we can schedule 1st available and leave her a message with dates and times. Schedule both at the same time if possible. CT scans ( waiting to find out if here or [facility]) NM bone scan F/U couple days after completed Neda Chandra [facility]04-08-2025 NoteHNO ID: [id number] Author: ROSS MARION, DO Service: ? Author Type: Physician Type: Progress Notes Filed: 11/26/2024 17:02 Note Text: Diagnosis: 1) Breast cancer. HPI: Patient is a 39-year-old female who appreciated a mass in the upper outer quadrant of her right breast in the fall of 2014. She underwent a diagnostic mammogram dated 04/29/2015 which demonstrated suspicious lesion in that area. She underwent an ultrasound-guided needle biopsy on 05/01/2015. Pathology reportedly demonstrated an ER positive/weakly [place] positive HER-2 negative grade 3 invasive ductal carcinoma. She apparently underwent axillary lymph node sampling on 06/03/2015 and was found to have 1 positive lymph node out of 8. She also underwent an excisional biopsy of the primary site which demonstrated 3 foci of invasive ductal carcinoma the largest of which was 1.5 cm with positive margins. She then underwent neoadjuvant chemotherapy consisting of Adriamycin and cyclophosphamide followed by Taxol which she completed on 09/17/2015. 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 Genetic testing revealed that she was BRCA2 positive. She did not receive adjuvant radiation treatment evidently because of delayed healing from surgery which was attributed to chemotherapy. She had undergone hysterectomy and bilateral salpingo-oophorectomy several years previously and was therefore started on anastrozole after surgery. Had permanent implants placed. She was living in [place] but moved to [place] with her in 2016. She was seen by Dr. Fried for concerns of nodules along the medial aspect of the right breast. She had undergone a CT of the chest, abdomen and pelvis as well as an MRI of the breasts. Previous therapy: 1) Anastrozole. 2) Letrozole. 3) Aromasin. MRI lumbar spine 03/15/2019: FINDINGS: T12-L1: Normal endplates. Normal disc height, hydration and morphology. Normal bilateral facet joints. Normal central canal and bilateral lateral recesses. Normal bilateral intervertebral neural foramina. Normal lumbar lordosis. There is no substantial scoliosis. Normal conus medullaris that terminates at the T12 no marrow replacing lesions to suggest metastatic disease. L1-2: Normal endplates. Normal disc height, hydration and morphology. Normal bilateral facet joints. Normal central canal and bilateral lateral recesses. Normal bilateral intervertebral neural foramina. L2-3: Normal endplates. Normal disc height, hydration and morphology. Normal bilateral facet joints. Normal central canal and bilateral lateral recesses. Normal bilateral intervertebral neural foramina. L3-4: Normal endplates. Normal disc height, hydration and morphology. Normal bilateral facet joints. Normal central canal and bilateral lateral recesses. Normal bilateral intervertebral neural foramina. L4-5: Mild bilateral facet hypertrophy and moderate ligament flavum hypertrophy. 2 mm retrolisthesis of L4 and L5 with a moderate broad disc protrusion produces moderate spinal stenosis with mild bilateral lateral recess stenosis and mild bilateral neural foraminal stenosis. L5-S1: Normal endplates. Normal disc height, hydration and morphology. Normal bilateral facet joints. Normal central canal and bilateral lateral recesses. Normal bilateral intervertebral neural foramina. Normal visualized sacral ala. Mild friction related edema in the posterior subcutaneous fat. IMPRESSION: 1. Focal degenerative disc disease at L4/L5. 2. No MR evidence of metastatic disease. Presents to re-establish oncologic follow up. Interim history: Elements copied from Dr. Roca's note dated 06/21/2022 have been reviewed and updated where appropriate to reflect the current assessment and medical decision making during today's encounter. Oncology History Overview Note She started high risk breast cancer screening at age [age] (with mammogram, she notes). Known brca 2 mutation in mother who had breast cancer 36 year old with diagnosed right breast UOQ in 2014 at age 29 - she underwent a diagnostic mammo 04/29/2015 with susp lesion in the area. 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 - path stage [id number] Germline testing BRCA 2 positive Did not receive adj RT due to delayed healing from surgery (attributed to chemo) BSO in 2011 (after pt found to be brca 2 pos, this germline testing predated cancer diagnosis, mom had brca2, aunt and grandmother brca 2), hysterectomy in 2015 Nodules of medial aspect of R breast skin [id number], reportedly evaluated with imaging and negative AI: exemestane November 2015 (more content not included)...[facility]04-08-2025 History of Present illness Narrative* Ross Marion DO - 11/26/2024 4:19 PM EDT Diagnosis: 1) Breast cancer. HPI: Patient is a 39-year-old female who appreciated a mass in the upper outer quadrant of her right breast in the fall of 2014. She underwent a diagnostic mammogram dated 04/29/2015 which demonstratedsuspicious lesion in that area. She underwent an ultrasound-guided needle biopsy on 05/01/2015. Pathology reportedly demonstrated an ER positive/weakly KY positive HER-2 negative grade 3 invasive ductal carcinoma. She apparently underwent axillary lymph node sampling on 06/03/2015 and was found to have 1 positive lymph node out of 8. She also underwent an excisional biopsy of the primary site which demonstrated 3 foci of invasive ductal carcinoma the largest of which was 1.5 cm with positive margins. She then underwent neoadjuvant chemotherapy consisting of Adriamycin and cyclophosphamide followed by Taxol which she completed on 09/17/2015. 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 Genetic testing revealed that she was BRCA2 positive. She did not receive adjuvant radiation treatment evidently because of delayed healing from surgery which was attributed to chemotherapy. She had undergone hysterectomy and bilateral salpingo-oophorectomy several years previously and wastherefore started on anastrozole after surgery. Had permanent implants placed. She was living in [place] but moved to [place] with her in 2016. She was seen by Dr. Fried for concerns of nodules along the medial aspect of the right breast. She had undergone a CT of the chest, abdomen and pelvis as well as an MRI of the breasts. Previous therapy: 1) Anastrozole. 2) Letrozole. 3) Aromasin. MRI lumbar spine 03/15/2019: FINDINGS: T12-L1: Normal endplates. Normal disc height, hydration and morphology. Normal bilateral facet joints. Normal central canal and bilateral lateral recesses. Normal bilateral intervertebral neural foramina. Normal lumbar lordosis. There is no substantial scoliosis. Normal conus medullaris that terminates at the T12 no marrow replacing lesions to suggest metastatic disease. L1-2: Normal endplates. Normal disc height, hydration and morphology. Normal bilateral facet joints. Normal central canal and bilateral lateral recesses. Normal bilateral intervertebral neural foramina. L2-3: Normal endplates. Normal disc height, hydration and morphology. Normal bilateral facet joints. Normal central canal and bilateral lateral recesses. Normal bilateral intervertebral neural foramina. L3-4: Normal endplates. Normal disc height, hydration and morphology. Normal bilateral facet joints. Normal central canal and bilateral lateral recesses. Normal bilateral intervertebral neural foramina. L4-5: Mild bilateral facet hypertrophy and moderate ligament flavum hypertrophy. 2 mm retrolisthesis of L4 and L5 with a moderate broad disc protrusion produces moderate spinal stenosis with mild bilateral lateral recess stenosis and mild bilateral neural foraminal stenosis. L5-S1: Normal endplates. Normal disc height, hydration and morphology. Normal bilateral facet joints. Normal central canal and bilateral lateral recesses. Normal bilateral intervertebral neural foramina. Normal visualized sacral ala. Mild friction related edema in the posterior subcutaneous fat. IMPRESSION: 1. Focal degenerative disc disease at L4/L5. 2. No MR evidence of metastatic disease. Presents to re-establish oncologic follow up. Interim history: Elements copied from Dr. Roca's note dated 06/21/2022 have been reviewed and updated where appropriate to reflect the current assessment and medical decision making during today's encounter. Oncology History Overview Note She started high risk breast cancer screening at age [age] (with mammogram, she notes). Known brca 2 mutation in mother who had breast cancer 36 year old with diagnosed right breast UOQ in 2015 at age 29 - she underwent a diagnostic mammo 04/29/2015 with susp lesion in the area. 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 - path stage [id number] Germline testing BRCA 2 positive Did not receive adj RT due to delayed healing from surgery (attributed to chemo) BSO in 2011 (after pt found to be brca 2 pos, this germline testing predated cancer diagnosis, mom had brca2, aunt and grandmother brca 2), hysterectomy in 2015 Nodules of medial aspect of R breast skin [phone], reportedly evaluated with imaging and negative AI: exemestane November 2015- --had neuropathy, bone pain, insomnia; letrozole (few months, patient thinks not long), same bone pain, insomnia, anastrozole 2018 - came off in summer due to bone pain. Was recommended gabapentin for bone pain, pain medicine doctor - tramadol and back and hip shots, and something for sleep. She was ultimately asked to go back to oncology for chronic issues. Also hot flashes, sweats improved on venlafaxine (now off) Took herself off of JUAN 01/2022, last saw onc > 2 years ago - and still has low back, legs and pain. Still has ongoing hot flashes, versus when she was on AI -2-3x a day. Doesn't recall if took exemestane when given Rx by Dr. Roca. Life stressors-- Mom of breast cancer in 2020--recurrence in bones. left in 2021--divorce finalized fall last year. Right implant collapsed about 3-4 years ago. Saw a plastic surgeon in [place]. Was advised needed to lose weight for surgery. PMH, medications and allergies personally reviewed by me today. Any changes documented in appropriate section. ROS: Constitutional: Denies episodes of fever and night sweats. Neuro: Denies IBARRA, vertigo, dizziness and imbalance. HEENT: No recent change in voice, vision or hearing. Resp: Denies cough, wheeze and hemoptysis. Denies shortness of breath at rest. CVS: Denies exertional chest pain, PND, orthopnea and LE edema. GI: Denies reflux, n/v, change in bowel habits and abdominal pain. : Denies dysuria or gross hematuria. No symptoms of bladder outlet obstruction. Endo: Denies polyuria and polydipsia. Denies heat and cold intolerance. Musculoskeletal: Chronic LBP. Derm: Denies rash. Denies jaundice and diffuse pruritis. Heme: Denies unusual bleeding and unexplained bruising. Psych: Normal mood. Participation of a fellow, resident, medical student, or advanced practice provider student in performing the sensitive examination was discussed with the patient or authorized compliance representative. The patient or authorized compliance representative has agreed to proceed with the sensitive examination. Luisa Lopez LPN chaperoned PHYSICAL EXAM: Vitals: Blood pressure 148/89, pulse 81, temperature 37.1 C (98.8 F), temperature source Temporal, height 161.9 cm (5' 3.75), weight 106.1 kg (234 lb), SpO2 99%. Well-appearing and in no acute distress. EYES: Sclerae are anicteric bilaterally. LYMPHATIC: There is no palpable cervical, supraclavicular or axillary adenopathy. CARDIOVASCULAR: Rhythm is regular. BREAST: Bilateral breast implants. Both feel like they have partially collapsed. No discrete nodules or masses appreciated. ABDOMEN: The abdomen is nondistended. No tenderness. No hepatomegaly or splenomegaly. Extremities: Chronic appearing swelling and mild edema both legs. SKIN: No jaundice. Genetic testin) BRCA2 positive. ASSESSMENT/PLAN: (C50.411, Z17.0) Malignant neoplasm of upper-outer quadrant of right breast in female, estrogen receptor positive (HCC) (primary encounter diagnosis) Assessment: -cT1c N1 M0 ER positive/KY weakly positive, HER2 non over-expressed invasive ductal carcinoma the right breast. -pCR to neoadjuvant chemotherapy. - She is having tremendous anxiety over her diagnosis. Her mother's from metastatic breast cancer has exacerbated this anxiety and although she has been educated several times that routine surveillance scans are not recommended, she is in enough distress that CT scan and bone scan are warranted. I explained that there may be abnormalities that require further investigation with either follow -up imaging and/or biopsy and she expressed an understanding of this and would like to proceed withimaging. Plan: - CT chest, abdomen pelvis with IV contrast. Previous hives with IV contrast that did not recur after taking Benadryl as a premed. I instructed her on prednisone/Benadryl prep for CTs. - Whole-body bone scan. - Office visit following above imaging. Portions of this documentation were copied and pasted from my previous office visit note dated 03/22/2019 in order to provide a cohesive continuity of the history. The note has been reviewed and editedand updated as necessary. I spent a total of 40 minutes on the date of the service which included preparing to see the patient, [id number] patient care, completing clinical documentation, obtaining and/or reviewing separately obtained history, performing a medically appropriate examination, counseling and educating the pat ient/family/caregiver, ordering medications, tests, or procedures, communicating with other HCPs (not separately reported), and communicating results to the patient/family/caregiver. Ross Marion DO documented in this encounter[facility] Telephone encounter Note * Telephone Encounter - Arlette Angulo MA - 06/20/2024 10:33 AM EDT Patient notified.. The following approved medication requests have been transmitted electronically. Requested Prescriptions Signed Prescriptions Disp Refills benzonatate (TESSALON PERLE) 100 mg capsule 30 capsule 0 Sig: Take 1 capsule by mouth every 8 hours as needed for cough for up to 15 days. Authorizing Provider: [place] CONTRERAS predniSONE (DELTASONE) 10 mg tablet 15 tablet 0 Sig: Take 5 tablets by mouth once daily for 1 day, THEN 4 tablets once daily for 1 day, THEN 3 tablets once daily for 1 day, THEN 2 tablets once daily for 1 day, THEN 1 tablet once daily for 1 day. Authorizing Provider: [place] CONTRERAS MA [facility]10-31-2024 Miscellaneous Notes* Telephone Encounter - Arlette Angulo MA - 06/20/2024 10:33 AM EDT Patient notified.. The following approved medication requests have been transmitted electronically. Requested Prescriptions Signed Prescriptions Disp Refills benzonatate (TESSALON PERLE) 100 mg capsule 30 capsule 0 Sig: Take 1 capsule by mouth every 8 hours as needed for cough for up to 15 days. Authorizing Provider: [place] CONTRERAS predniSONE (DELTASONE) 10 mg tablet 15 tablet 0 Sig: Take 5 tablets by mouth once daily for 1 day, THEN 4 tablets once daily for 1 day, THEN 3 tablets once daily for 1 day, THEN 2 tablets once daily for 1 day, THEN 1 tablet once daily for 1 day. Authorizing Provider: [place] CONTRERAS MA * Telephone Encounter - Ky Contreras MD - 06/20/2024 10:24 AM EDT Cough suppressant and steroid sent. * Telephone Encounter - Katiuska Garcia RN - 06/20/2024 8:56 AM EDT Pt called in and reports she was seen in on 06/19/24. She states the provider told her she wouldcall in a steroid and a cough suppressant to [facility] in [place]. Please call and advise Pt. I told her I saw that they would call in Doxycycline if x-ray showed pneumonia, and it did not. documented in this encounterOhio[facility]10-31-2024 Telephone encounter Note * Telephone Encounter - Ky Contreras MD - 06/20/2024 10:24 AM EDT Cough suppressant and steroid sent. [facility]10-[facility] Telephone encounter Note* Telephone Encounter - Katiuska Garcia RN - 06/20/2024 8:56 AM EDT Pt called in and reports she was seen in [facility] on 06/19/24. She states the provider told her she wouldcall in a steroid and a cough suppressant to [facility] in [place]. Please call and advise Pt. I told her I saw that they would call in Doxycycline if x-ray showed pneumonia, and it did not. [facility]10-[facility] Telephone encounter Note* Telephone Encounter - Teri Thornton APRN.CNP - 06/19/2024 7:59 PM EDT Xray reveals atelectasis. No pneumonia VM message left and mychart message sent [facility] Work Phone: [phone] Miscellaneous Notes* Telephone Encounter - Teri Thornton APRN.CNP - 06/19/2024 7:59 PM EDT Xray reveals atelectasis. No pneumonia VM message left and mychart message sent documented in this encounterOhio[facility]10-30-2024 History of Present illness Narrative* Shiraz Sin, RT(R) - 06/19/2024 5:20 PM EDT Radiology Service Progress Note PATIENT NAME: Margo Valero DATE OF SERVICE: June 19, 2024 TIME: 5:37 PM PATIENT IDENTITY VERIFICATION COMPLETED USING TWO (2) IDENTIFIERS: Name and Date of confirmedby patient verbally. FALL SCREENING: Has the patient had 2 falls in the last year or 1 fall with injury or currently using an Ambulatory Assistive Device (Walker, Cane, Wheelchair, Crutches, etc.)? No PATIENT GENDER DATA: Female. status: : No status: NO. PATIENT RELEVANT IMPLANT DATA REVIEWED: Yes PATIENT PRESENTS WITH AN IMPLANTABLE OR ATTACHED INTEGRATED LOGISTICS PROGRAMS DIRECTOR: No RADIOLOGY DEPARTMENT: General X-ray: Exam(s) Completed: Chest X-Ray PERIPHERAL IV DATA: Not applicable SIGNED BY: RT Valeri(Annabel) June 19, 2024 5:37 PM documented in this encounterOhiohealth [facility]10-30-2024 NoteHNO ID: [id number] Author: SHIRAZ SIN RT(Annabel) Service: ? Author Type: Field Operations Technician Type: Progress Notes Filed: 06/19/2024 17:44 Note Text: Radiology Service Progress Note PATIENT NAME: Margo Valero DATE OF SERVICE: June 19, 2024 TIME: 5:37 PM PATIENT IDENTITY VERIFICATION COMPLETED USING TWO (2) IDENTIFIERS: Name and Date of confirmed by patient verbally. FALL SCREENING: Has the patient had 2 falls in the last year or 1 fall with injury or currently using an Ambulatory Assistive Device (Walker, Cane, Wheelchair, Crutches, etc.)? No PATIENT GENDER DATA: Female. status: : No status: NO. PATIENT RELEVANT IMPLANT DATA REVIEWED: Yes PATIENT PRESENTS WITH AN IMPLANTABLE OR ATTACHED INTEGRATED LOGISTICS PROGRAMS DIRECTOR: No RADIOLOGY DEPARTMENT: General X-ray: Exam(s) Completed: Chest X-Ray PERIPHERAL IV DATA: Not applicable SIGNED BY: RT Valeri(R) June 19, 2024 5:37 [facility]10-30-2024 NoteHNO ID: [id number] Author: ROSA MARTINEZ PA Service: ? Author Type: Physician V Groove Cutter Type: Progress Notes Filed: 06/19/2024 18:46 Note Text: This note was created using [employer]. Subjective Margo Valero is a 38 year old female. HPI 38-year-old female presents for cough, chest congestion, fevers x 4 days. Patient states she started getting sick several days ago with cough. She states she feels congested in her chest. She has a little shortness of breath with coughing and pain when she coughs in her chest. She has had fevers up to 101 ?F. She has a little bit of runny nose. No sore throat. No vomiting or diarrhea. 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 She has been taking Tylenol, Motrin, DayQuil and NyQuil with minimal improvement in symptoms. She did a home COVID test that was negative. No past medical history on file. PAST SURGICAL HISTORY Procedure Laterality Date ARTHROSCOPY KNEE DIAGNOSTIC W/WO SYNOVIAL BX SPX Right 2008 Arthroscopy, knee LAPAROSCOPIC SUPRACERVICAL HYSTERECTOMY 2015 MAST MODF RAD W/AX LYMPH NOD W/WO PECT/OLIVIA MIN Bilateral 2016 OOPHORECTOMY PARTIAL/TOTAL UNI/BI 2013 Oophorectomy ALLERGIES Shellfish Containing Products, Betadine [Povidone-Iodine], Z Yvrose [Azithromycin], Beef Containing Products, Drew, Iodine, and Skin Cleanser MEDICATIONS buPROPion XL (WELLBUTRIN XL) 300 mg 24 hr tablet TAKE 1 TABLET BY MOUTH DAILY. TO BE TAKEN WITH 150MG TABLET FOR TOTAL 450 MG DOSE. exemestane (AROMASIN) 25 mg tablet Take 1 tablet by mouth once daily. (Patient not taking: Reported on 06/19/2024) venlafaxine ER (EFFEXOR XR) 37.5 mg 24 hr capsule Take 1 capsule by mouth once daily. (Patient not taking: Reported on 06/19/2024) meloxicam (MOBIC) 7.5 mg tablet Take 7.5 mg by mouth once daily. (Patient not taking: Reported on 06/21/2022) CALCIUM ORAL Take 1,000 mg by mouth twice daily. (Patient not taking: Reported on 06/21/2022) FAMILY HISTORY Problem Relation Age of Onset Breast Cancer Mother 37 other (htn) Mother Breast Cancer Maternal Grandmother 44 passed at 47 years of age Breast Cancer Maternal Aunt 40 Hypertension Maternal Aunt Social History Tobacco Use Smoking status: Never Smokeless tobacco: Never Substance Use Topics Alcohol use: Yes Comment: occassion Drug use: No Review of Systems Constitutional: Positive for chills and fever. HENT: Positive for rhinorrhea. Negative for congestion, ear pain and sore throat. Respiratory: Positive for cough and shortness of breath. Cardiovascular: Negative for chest pain. Gastrointestinal: Negative for diarrhea and vomiting. Objective BP 128/82 Pulse 96 Temp 37.1 ?C (98.7 ?F) Resp 16 Wt 106.7 kg (235 lb 3.7 oz) SpO2 98% BMI 39.43 kg/m? Physical Exam Vitals and nursing note reviewed. Constitutional: General: She is not in acute distress. Appearance: Normal appearance. She is not toxic-appearing. HENT: Right Ear: Tympanic membrane and ear canal normal. Left Ear: Tympanic membrane and ear canal normal. Nose: Nose normal. Mouth/Throat: Mouth: Mucous membranes are moist. Pharynx: Oropharynx is clear. Eyes: Conjunctiva/sclera: Conjunctivae normal. Cardiovascular: Rate and Rhythm: Normal rate and regular rhythm. Pulmonary: Effort: Pulmonary effort is normal. Breath sounds: Decreased breath sounds present. No wheezing, rhonchi or rales. Skin: General: Skin is warm and dry. Neurological: Mental Status: She is alert. Assessment and Plan ASSESSMENT/PLAN: 1. Acute cough - ICD9: 786.2, ICD10: R05.1 - XR CHEST 2V FRONTAL/LAT-radiology read pending. -If positive for pneumonia, please treat with doxycycline. -Patient advised we will call her with the result of her XR. Diagnosis and treatment plan were discussed and questions were answered to the patient's satisfaction. Pt acknowledged understanding of concepts and follow up plan. Specific signs and symptoms that would indicate the need for higher level of care were discussed in detail warranting prompt ER evaluation. Rosa Martinez [facility]10-30-2024 History of Present illness Narrative* Rosa Martinez PA - 06/19/2024 5:05 PM EDT This note was created using NoteWriter. Subjective Margo Valero is a 38 year old female. HPI 38-year-old female presents for cough, chest congestion, fevers x 4 days. Patient states she started getting sick several days ago with cough. She states she feels congested in her chest. She hasa little shortness of breath with coughing and pain when she coughs in her chest. She has had fevers up to 101 F. She has a little bit of runny nose. No sore throat. No vomiting or diarrhea. 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 She has been taking Tylenol, Motrin, DayQuil and NyQuil withminimal improvement in symptoms. She did a home COVID test that was negative. No past medical history on file. PAST SURGICAL HISTORY Procedure Laterality Date ARTHROSCOPY KNEE DIAGNOSTIC W/WO SYNOVIAL BX SPX Right 2008 Arthroscopy, knee LAPAROSCOPIC SUPRACERVICAL HYSTERECTOMY 2016 MAST MODF RAD W/AX LYMPH NOD W/WO PECT/OLIVIA MIN Bilateral 2016 OOPHORECTOMY PARTIAL/TOTAL UNI/BI 2013 Oophorectomy ALLERGIES Shellfish Containing Products, Betadine [Povidone-Iodine], Z Yvrose [Azithromycin], Beef Containing Products, Drew, Iodine, and Skin Cleanser MEDICATIONS buPROPion XL (WELLBUTRIN XL) 300 mg 24 hr tablet TAKE 1 TABLET BY MOUTH DAILY. TO BE TAKEN WITH 150MG TABLET FOR TOTAL 450 MG DOSE. exemestane (AROMASIN) 25 mg tablet Take 1 tablet by mouth once daily. (Patient not taking: Reportedon 06/19/2024) venlafaxine ER (EFFEXOR XR) 37.5 mg 24 hr capsule Take 1 capsule by mouth once daily. (Patient not taking: Reported on 06/19/2024) meloxicam (MOBIC) 7.5 mg tablet Take 7.5 mg by mouth once daily. (Patient not taking: Reported on 06/21/2022) CALCIUM ORAL Take 1,000 mg by mouth twice daily. (Patient not taking: Reported on 06/21/2022) FAMILY HISTORY Problem Relation Age of Onset Breast Cancer Mother 37 other (htn) Mother Breast Cancer Maternal Grandmother 44 passed at 47 years of age Breast Cancer Maternal Aunt 40 Hypertension Maternal Aunt Social History Tobacco Use Smoking status: Never Smokeless tobacco: Never Substance Use Topics Alcohol use: Yes Comment: occassion Drug use: No Review of Systems Constitutional: Positive for chills and fever. HENT: Positive for rhinorrhea. Negative for congestion, ear pain and sore throat. Respiratory: Positive for cough and shortness of breath. Cardiovascular: Negative for chest pain. Gastrointestinal: Negative for diarrhea and vomiting. Objective BP 128/82 Pulse 96 Temp 37.1 C (98.7 F) Resp 16 Wt 106.7 kg (235 lb 3.7 oz) SpO2 98% BMI 39.43 kg/m Physical Exam Vitals and nursing note reviewed. Constitutional: General: She is not in acute distress. Appearance: Normal appearance. She is not toxic-appearing. HENT: Right Ear: Tympanic membrane and ear canal normal. Left Ear: Tympanic membrane and ear canal normal. Nose: Nose normal. Mouth/Throat: Mouth: Mucous membranes are moist. Pharynx: Oropharynx is clear. Eyes: Conjunctiva/sclera: Conjunctivae normal. Cardiovascular: Rate and Rhythm: Normal rate and regular rhythm. Pulmonary: Effort: Pulmonary effort is normal. Breath sounds: Decreased breath sounds present. No wheezing, rhonchi or rales. Skin: General: Skin is warm and dry. Neurological: Mental Status: She is alert. Assessment and Plan ASSESSMENT/PLAN: 1. Acute cough - ICD9: 786.2, ICD10: R05.1 - XR CHEST 2V FRONTAL/LAT-radiology read pending. -If positive for pneumonia, please treat with doxycycline. -Patient advised we will call her with the result of her XR. Diagnosis and treatment plan were discussed and questions were answered to the patient's satisfaction. Pt acknowledged understanding of concepts and follow up plan. Specific signs and symptoms that would indicate the need for higher level of care were discussed in detail warranting prompt ER evaluation. ABRAHAM Saucedo documented in this encounter[facility] Hospital Discharge instructions Additional Instructions Wear finger splint for the next 1 to 2 weeks until you follow-up with orthopedic surgery. Take finger splint off for washing your hands, shower and icing only. Alternate Tylenol Motrin as needed for pain. Ice 20 minutes on, 20 minutes off. Work restrictions were given. Follow-up with orthopedic surgery for further evaluation of finger fracture and to rule out any type of flexor tendon rupture.[facility] Work Phone: [phone] History of Present illness Narrative* Poornima Casillas MD - 11/28/2022 8:54 AM EDT Patient did not attend intake visit today. Second no show. She should not be scheduled again unlessshe calls and verbalizes intent. documented in this encounterOhio[facility]12-27-2022 History of Present illness Narrative* Poornima Casillas MD - 08/16/2022 1:00 PM EST Patient did not attend intake visit. documented in this encounterOhio[facility]11-01-2022 Instructions* Patient Instructions* Arpita Roca MD - 06/21/2022 11:02 AM EDT You were seen in the breast clinic today and we discussed: Psychiatry, psychology referral Evaluation of new symptoms with scans We would like to see you in follow in 3 months with my nurse practitioner. Please call [facility] at [phone] to make that follow up appointment. It was a pleasure participating in your care. Dr. Roca documented in this encounterOhio[facility]11-01-2022 History of Present illness Narrative* Arpita Roca MD - 06/21/2022 10:05 AM EDT Breast Cancer Consult Note SERVICE DATE: June 21, 2022 Referring Provider: Margo Valero is a 36 year old female referred by Self, for my opinion regarding the management of history of breast cancer. My final recommendations will be communicated back to the requesting physician by way of shared Medical record or letter to requesting physician via US mail. Chief Complaint: transfer of care Oncology History Overview Note She started high risk breast cancer screening at age [age] (with mammogram, she notes). Known brca 2 mutation in mother who had breast cancer 36 year old with diagnosed right breast UOQ in 2015 at age 29 - she underwent a diagnostic mammo 04/29/2015 with susp lesion in the area. 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 - path stage [id number] Germline testing BRCA 2 positive Did not receive adj RT due to delayed healing from surgery (attributed to chemo) BSO in 2011 (after pt found to be brca 2 pos, this germline testing predated cancer diagnosis, mom had brca2, aunt and grandmother brca 2), hysterectomy in 2015 Nodules of medial aspect of R breast skin [id number], reportedly evaluated with imaging and negative AI: exemestane November 2015- --had neuropathy, bone pain, insomnia; letrozole (few months, patient thinks not long), same bone pain, insomnia, anastrozole 2018 - came off in summer of 2021 due to bone pain. Was recommended gabapentin for bone pain, pain medicine doctor - tramadol and back and hip shots, and something for sleep. She was ultimately asked to go back to oncology for chronic issues. Also hot flashes, sweats improved on venlafaxine (now off) Took herself off of JUAN 01/2022, last saw onc > 2 years ago - and still has low back, legs and pain. Still has ongoing hot flashes, versus when she was on AI -2-3x a day. Malignant neoplasm of upper-outer quadrant of right breast in female, estrogen receptor positive (HCC) 03/24/2017 Initial Diagnosis Malignant neoplasm of upper-outer quadrant of right breast in female, estrogen receptor positive (HCC) 06/21/2022 Cancer Staged Staging form: [facility] - Clinical: Stage IIB (T2, N1, M0) - Signed by Arpita Roca MD on 06/21/2022 06/21/2022 Cancer Staged Staging form: [facility] - Pathologic stage from 06/21/2022: T0, N0, M0 - Signed by Arpita Roca MD on 06/21/2022 HISTORY OF PRESENT ILLNESS: Ms. Valero is here today to establish care, here with friend. Onc hx as above. PMHx of anxiety and depression, was on venlafaxine for some time, then switched to fluoxetine (made her irritable, bouts of anxiety), and then Sertraline (also made irritable). She was given propranolol by pcp for anxiety attacks. Never seen a psychologist or psychiatrist. Currently dealing with insomnia, and not taking anything. She notes worsening low back pain that's been evaluated as arthritis but notes symptoms are worsening. She has several questions about what imaging she needs, question regarding screening her kids, taking sleep aids, going back on AI. She also would like to switch her providers. Prev hx of DVT, does not remember situation, was not provoked by a preceding hospitalization or period of immobilization. Non smoker. MANAGER ORANGE: Menarche: age 10 (1 tubal - miscarriage) Age at first : 20 OCPs: age 16-20, did Mirena IUD x 1 year [id number] Premenopausal: No - bilateral salpingo-oophorectomy CANCER FAMILY HISTORY: Patient is 1 of 2 (1 sister, no cancers). Mom with brca 2 mutation (dx at age 38, breast cancer, recurrent metastatic now ), dad without cancers. Mom was 1 of 3 (1 sister with dcis her 2+ brca neg). MGM with breast cancer (brca status unk, in 40s). GENETICS: Brca 2 on germline PAST MEDICAL HISTORY: No past medical history on file. PAST SURGICAL HISTORY: PAST SURGICAL HISTORY Procedure Laterality Date KNEE SCOPE,DIAGNOSTIC Right 2009 Arthroscopy, knee LAPAROSCOPIC SUPRACERVICAL HYSTERECTOMY 2016 MASTECTOMY, MODIFIED RADICAL Bilateral 2016 REMOVAL OF OVARY(S) 2013 Oophorectomy CURRENT MEDICATIONS: exemestane (AROMASIN) 25 mg tablet Take 1 tablet by mouth once daily. venlafaxine ER (EFFEXOR XR) 37.5 mg 24 hr capsule Take 1 capsule by mouth once daily. traZODone (DESYREL) 50 mg tablet Take 1 tablet by mouth daily at bedtime. meloxicam (MOBIC) 7.5 mg tablet Take 7.5 mg by mouth once daily. (Patient not taking: Reported on 06/21/2022) CALCIUM ORAL Take 1,000 mg by mouth twice daily. (Patient not taking: Reported on 06/21/2022) ALLERGIES/INTOLERANCES: ALLERGIES Allergen Reactions Shellfish Containin* Anaphylaxis Betadine [Povidone-* Unknown Z Yvrose [Azithromycin] Unknown Beef Containing Pro* Hives, Swelling Drew Hives, Swelling Iodine Hives, Swelling Skin Cleanser Hives, Itching Hippa Cleanse FAMILY HISTORY: FAMILY HISTORY Problem Relation Age of Onset Breast Cancer Mother 37 other (htn) Mother Breast Cancer Maternal Grandmother 44 passed at 47 years of age Breast Cancer Maternal Aunt 40 Hypertension Maternal Aunt SOCIAL HISTORY: Social History Tobacco Use Smoking status: Never Smokeless tobacco: Never Substance Use Topics Alcohol use: Yes Comment: occassion Drug use: No Employer And Job Title: None on file Years Of Education Completed: Not specified Marital Status: REVIEW OF SYSTEMS: Remainder of the pertinent ROS was negative PHYSICAL EXAM: BP 149/98 Pulse 89 Temp 36.8 C (98.3 F) (Oral) Resp 20 Ht 164.5 cm (5' 4.76) Wt 130.8 kg (288 lb 4.8 oz) SpO2 98% BMI 48.33 kg/m2 Body mass index is 48.33 kg/m . Estimated body surface area is 2.44 meters squared as calculated from the following: Height as of this encounter: 164.5 cm (5' 4.76). Weight as of this encounter: 130.8 kg (288 lb 4.8 oz). ECO- Fully active, able to carry on all pre-disease performance w/o restriction. GENERAL:well-nourished, healthy, alert and oriented x 3 SKIN:warm, dry, skin color, texture, turgor normal HEAD/EYES:normocephalic, atraumatic, and anicteric NECK:supple, symmetrical, no thyromegly LUNGS: Chest symmetrical with respirations, non labored HEART: Equal peripheral pulses ABDOMEN: soft, nondistended. No hepatomegly., No masses MUSCULOSKELETALl: Upper extremities with normal range of motion, no lymphedema BREAST (RIGHT): no palpable masses BREAST (LEFT): no palpable masses LYMPH NODES: There is no concerning supraclavicular, infraclavicular or axillary lymphadenopathy LABS: CBC Latest Ref Rng & Units 06/21/2022 WBC 3.70 - 11.00 k/uL 9.33 RBC 3.90 - 5.20 m/uL 5.14 HEMOGLOBIN 11.5 - 15.5 g/dL 14.9 HEMATOCRIT 36.0 - 46.0 % 43.0 MCV 80.0 - 100.0 fL 83.7 MCH 26.0 - 34.0 pg 29.0 MCHC 30.5 - 36.0 g/dL 34.7 RDW-CV 11.5 - 15.0 % 12.0 PLATELETS 150 - 400 k/uL 330 MPV 9.0 - 12.7 fL 8.8(L) ABS NEUT (ANC) 1.45 - 7.50 k/uL 4.92 CMP Latest Ref Rng & Units 06/21/2022 SODIUM 136 - 144 mmol/L 141 POTASSIUM 3.7 - 5.1 mmol/L 4.4 CHLORIDE 97 - 105 mmol/L 105 CO2 22 - 30 mmol/L 28 GLUCOSE 74 - 99 mg/dL 91 BUN 7 - 21 mg/dL 10 CREATININE 0.58 - 0.96 mg/dL 0.83 EGFR >=60 mL/min/1.73m 94 PROTEIN, TOTAL 6.3 - 8.0 g/dL 7.3 ALBUMIN 3.9 - 4.9 g/dL 4.1 CALCIUM, TOTAL 8.5 - 10.2 mg/dL 9.8 BILIRUBIN, TOTAL 0.2 - 1.3 mg/dL 0.3 AST 13 - 35 U/L 18 ALT 7 - 38 U/L 20 ALKALINE PHOSPHATASE 34 - 123 U/L 102 GENETICS RESULT: germline brca 2 IMPRESSION: 36 year old with clinical stage II ER+ breast cancer (gBRCA2) here to establish care. STAGING: Cancer Staging Malignant neoplasm of upper-outer quadrant of right breast in female, estrogen receptor positive (HCC) Staging form: [facility] - Clinical: Stage IIB (T2, N1, M0) - Signed by Arpita Roca MD on 06/21/2022 - Pathologic stage from 06/21/2022: T0, N0, M0 - Signed by Arpita Roca MD on 06/21/2022 PLAN: Stage II ER+ R breast breast gBRCA 2+: - prev hx outlined as above, pt is s/p right therapeutic mastectomy and risk reducing prophylactic left mastectomy - as such, no body imaging is recommended today but will get labs today cbc, cmp - as pt has done 6 years of AI up til now, her options include: extended adjuvant endocrine therapy(ET) given N+ at diagnosis, premenopausal at diagnosis, consideration of breast cancer index testing, or stopping endocrine now. Pt shares she is extremely worried about being off ET and thinks this is the only way to definitively prevent breast cancer recurrence. Shared with pt ET in general cuts the recurrence risk in half and even with ET, unfortunately the risk still there but admittedly reduced. She is a good candidate for extended adj as she was T2N1 clinically before surgery and is willing and eager to go back on it, she is worried about side effects not being effectively managed. She has come off anastrozole since 01/2022 and did a trial 1 month prior and on retrying had return of symptoms mostly (flashes/sweats 3-4x a day, insomnia, and diffuse bone pain). Her flashes/sweats are now improved 1-2x a day but notes back pain is worsening - trial of exemestane now, gave Rx of venlafaxine 37.5mg daily and instructed to start venlafaxine if she develops symptoms - can try tart alarcon for msk symptoms -- new data with some benefit in terms of arthralgia though shared this is based off of a small study - I have shared there is no role of routine body scans in her situation - those would be driven by new symptoms or lab abnormalities. She will be followed by physical exams. She asked me about tumor markers and I shared with her routine imaging and laboratory testing for metastasis screening is notrecommended by cancer societies - shared exercise, staying at a healthy weight have been shown to reduce risk of breast cancer recurrence Anxiety/depression: - discussed she needs evaluation for ongoing mental health concerns - referral for psychology and psychiatry in place today - discussed sleep hygiene, avoid blue light, sleep in a cool quiet place, read a book at bedtime. Recommended acupuncture, increased walking/exercise, and yoga for mental health as well as AI relatedsymptoms - trazodone trial until she is established with psychiatry, I have shared long winder tender management of mood stabilizers and sleep aids, I would defer to the appropriate service Low back pain, worsening: - notes worsening low back and multi joint pain in legs - will get bone scan now Germline BRCA 2+: - genetics referral as pt has questions about testing children - s/p RRM and BSO; no pancreatic fam hx so unclear if there is significant benefit of panc ca screening. Recommended consideration of seeing dermatology for skin examinations RTC 3 months survivorship then Ali in 6 months Arpita Roca MD cc: ALLYSON Rivera Self I spent a total of 65 minutes on the date of the service which included preparing to see the patient, [id number] patient care, completing clinical documentation, obtaining and/or reviewing separately obtained history, performing a medically appropriate examination, counseling and educating the pat ient/family/caregiver, and communicating results to the patient/family/caregiver. documented in this encounterOhio[facility]11-[facility]22 Nurse Note* Radha Domingo MA - 06/21/2022 9:51 AM EDT Additional intake questions: Has the patient had fever, nausea, vomiting, diarrhea, constipation, fatigue for > 1 week? No Does the patient have a decreased appetite? No Does patient want to see a Fabrication Lead? No (yes to any of above refer patient to schedulers for dietitian appointment) ) Does patient have any new or increased numbness or tingling of extremities? No Is patient interested in fertility information? No Does patient need any prescription refills? No Does patient have an advanced directive in place? No documented in this encounterOhio[facility]-24-[facility]22 Hospital Discharge instructions Patient Education 01/11/2022 16:43:22 Dental Pain Dental Pain A crack or cavity in a tooth can cause tooth pain. This is because the crack or cavity exposes the sensitive inner area of the tooth. An infection in the gum or the root of the tooth can cause pain and swelling. The pain is often made worse when you drink hot or cold beverages. It can also be worsewhen you bite on hard foods. Pain may spread from the tooth to your ear or the area of the jaw on the same side. Home care Follow these tips when caring for yourself at home: Don't have hot and cold foods and drinks. Your tooth may be sensitive to changes in temperature. Use toothpaste made for sensitive teeth. [place] gently up and down instead of sideways. Brushing sideways can wear away root surfaces if they are exposed. If your tooth is chipped or cracked, or if there is a large open cavity, put oil of cloves directlyon the tooth to relieve pain. You can buy oil of cloves at drugstores. Some pharmacies carry an dguo-gio-ethyrxf toothache kit. This contains a paste that you can put on the exposed tooth to make it less sensitive. Put a cold pack on your jaw over the sore area to help reduce pain. You may use kgek-hgf-dheqdak medicine to ease pain, unless your doctor prescribed another medicine.If you have chronic liver or kidney disease, talk with your healthcare provider before using acetaminophen or ibuprofen. Also talk with your provider if you ve had a stomach ulcer or GI bleeding. If you have signs of an infection, you will be given an antibiotic. Take it as directed. Follow-up care Follow up with your dentist, or as advised. Your pain may go away with the treatment given today. But only a dentist can fully look at and treat the cause of your pain. This will keep the pain from coming back. Call 911 Call 911 if any of these occur: Unusual drowsiness Headache or stiff neck Weakness or fainting Difficulty swallowing or breathing When to seek medical advice Call your health care provider right away if any of these occur: Your face becomes swollen or red Pain gets worse or spreads to your neck Fever of 100.4 F (38.0 C) or higher, or as directed by your healthcare provider Pus drains from the tooth [phone] The comment.[employer]. [address] [place] [address]. All rights reserved. This information is not intended as a substitute for professional medical care. Always follow yourhealthcare professional's instructions. Follow Up Care 01/11/2022 16:03:16 With:your oral surgeon Address:Unknown When:2-4 days [facility] Evaluation + Plan note No data available for this section [facility] Evaluation noteNo assessment information available [facility] Work Phone: Evaluation note* Diagnosis Acute right-sided low back pain with sciatica, sciatica laterality unspecified- Primary History of right breast cancer documented [facility] encounter [facility]* Diagnosis Onset Date Resolution Status Distal phalanx or phalanges, closed fracture acute [facility] Work Phone: Evaluation note* Diagnosis Onset Date Resolution Status H/O staphylococcal infection acute Shingles rash acute [facility] Work Phone: Evaluation note* Diagnosis Acute cough- Primary Acute cough documented [facility] encounter [facility]* Diagnosis Acute cough documented in this encounter [facility]* Diagnosis Malignant neoplasm of upper-outer quadrant of right breast in female, estrogen receptor positive (HCC)- Primary documented [facility] this encounter [facility]* Diagnosis Malignant neoplasm of upper-outer quadrant of right breast in female, estrogen receptor positive (HCC)- Primary documented [facility] this encounter [facility]* Diagnosis Malignant neoplasm of upper-outer quadrant of right breast in female, estrogen receptor positive (HCC) documented in this encounter [facility]* Diagnosis Malignant neoplasm of upper-outer quadrant of right breast in female, estrogen receptor positive (HCC) documented in this encounter [facility]* Diagnosis Malignant neoplasm of upper-outer quadrant of right breast in female, estrogen receptor positive (HCC)- Primary documented in this encounter [facility] note* Diagnosis Malignant neoplasm of upper-outer quadrant of right breast in female, estrogen receptor positive (HCC)- Primary History of DVT (deep vein thrombosis) Personal history of venous thrombosis and embolism documented in this encounter [facility] No data available for this section [facility] Reason for referral (narrative)No reason for referral information [facility] Work Phone: Reason for visit Narrative* Diagnostic Procedure Only (Routine) - Closed Specialty Diagnoses / Procedures Referred By Atul t Referred To Contact [facility]LECULAR [facility] FUNCTIONAL IMAGING Diagnoses Malignant neoplasm of upper-outer quadrant of right breast in female, estrogen receptor positive (HCC) Procedures NM BONE WHOLE BODY BONE &/JOINT IMAGING WHOLE BODY Ross Marion DO [address] [place] [address] Phone: tel: fax: Molecular Imaging [address] [place] [id number] Phone: tel: Referral ID Status Reason Start Date Expiration Date V isits Requested Visits Authorized [id number] Closed Auto-Generate d Referral 11/26/2024 12/26/2025 1 1 [facility] for visit Narrative* MRI/CT (Routine) - Closed Specialty Diagnoses / Procedures Referred By Contac t Referred To Contact CT IMAGING Diagnoses Malignant neoplasm of upper-outer quadrant of right breast in female, estrogen receptor positive (HCC) Procedures CT CHEST W IVCON DIAGNOSTIC COMPUTED TOMOGRAPHY THORAX W/CONTRAST Ross Marion, DO [address] [place] [address] Phone: tel: fax: [place] [phone] Referral ID Status Reason Start Date Expiration Date V isits Requested Visits Authorized [id number] Closed Auto-Generate d Referral 11/26/2024 12/26/2025 1 1 [facility] for visit Narrative* MRI/CT (Routine) - Closed Specialty Diagnoses / Procedures Referred By Contac t Referred To Contact CT IMAGING Diagnoses Malignant neoplasm of upper-outer quadrant of right breast in female, estrogen receptor positive (HCC) Procedures CT CHEST W IVCON DIAGNOSTIC COMPUTED TOMOGRAPHY THORAX W/CONTRAST Ross Marion, DO [address] [place] [address] Phone: tel: fax: [place] [phone] Referral ID Status Reason Start Date Expiration Date V isits Requested Visits Authorized [id number] Closed Auto-Generate d Referral 11/26/2024 12/26/2025 1 1 [facility] Summary Purpose Family History No Family History Records Found Relationship Condition Age at Onset Recorded Date/T [place] mother Malignant neoplasm of breast Unknown Unknown Depression Unknown Hypertension Unknown Osteoporosis Unknown aunt Malignant neoplasm of breast Unknown grandmother Malignant neoplasm of breast Unknown Advance Directives No Advanced Directives Records Found Advance Directive Response Recorded Date/ Time Living Will No April 09 4:25pm Power of Wharf Tender No April 09 022 4:25pm Advance Directive Response Recorded Date/ Time Living Will Yes December 25, 2022 9: 03pm Power of Wharf Tender Yes December 25, 2022 9:03pm Name of Medical Power of Wharf Tender December 25, 2022 9:03pm Advance Directive Response Recorded Date/ Time Name of Medical Power of Wharf Tender December 25, 2022 9:03pm Living Will Yes December 25, 2022 9: 03pm Power of Wharf Tender Yes December 25, 2022 9:03pm Advance Directive Response Recorded Date/ Time Living Will Yes December 25, 2022 9: 03pm Power of Wharf Tender Yes December 25, 2022 9:03pm Advance Directive Response Recorded Date/ Time Do you have a Healthcare Power of Wharf Tender? No December 19, 2024 8:52pm Chief Complaint and Reason for Visit Chief Complaint lower extremity Chief Complaint FINGER Chief Complaint FINGER LEFT HAND RM 2 Reason for Visit Distal phalanx or ph alanges, closed fracture Chief Complaint RASH/INFECTION LEFT BREAST Reason for Visit H/O staphylococcal i nfection Shingles rash Chief Complaint Admit Date hypertension December 19, 2024 8:40pm consult/implants collapsed, dbl mastecto my prior January 23, 2025 9:30am Chief Complaint Admit Date hypertension December 19, 2024 8:40pm consult/implants collapsed, dbl mastecto my prior January 23, 2025 9:30am 2 W FU February 07, 2025 1:49 pm Reason for Visit Admit Date Breast implant capsular contracture January 23, 2025 9:30am History of reconstruction of both breast s January 23, 2025 9:30am Malignant neoplasm of upper- outer quadrant of right breast, estrogen recept January 23, 2025 9:30am Chief Complaint Admit Date hypertension December 19, 2024 8:40pm consult/implants collapsed, dbl mastecto my prior January 23, 2025 9:30am 2 W FU February 07, 2025 1:49 pm RULE OUT RUPTURED IMPLANTS February 13 1:31pm Reason for Visit Admit Date Breast implant capsular contracture January 23, 2025 9:30am History of reconstruction of both breast s January 23, 2025 9:30am Malignant neoplasm of upper- outer quadrant of right breast, estrogen recept January 23, 2025 9:30am Breast asymmetry following reconstructiv e surgery February 07, 2025 1:49pm Complication of breast implant January 1:49pm History of reconstruction of both breast s February 07, 2025 1:49pm Chief Complaint Admit Date hypertension December 19, 2024 8:40pm consult/implants collapsed, dbl mastecto my prior January 23, 2025 9:30am 2 W FU February 07, 2025 1:49 pm RULE OUT RUPTURED IMPLANTS February 13 1:31pm PRE OP March 07, 2025 1:29 pm Reason for Referral Specialty Diagnoses / Procedures Referred By Atul castro Referred To Contact Diagnoses History of right breast cancer Procedures CONSULT TO MEDICAL GENETICS - CANCER MEDICAL GENETICS COUNSELING EACH 30 MINUTES Arpita Roca MD [address] [place] [address] [address] Referral ID Status Reason Start Date Expiration Date Visits Requested Visits Authorized [id number] Authorized PCP Requested Referral Auto-Generate d Referral 06/21/2022 06/21/2023 1 1 Specialty Diagnoses / Procedures Referred By Atul castro Referred To Contact MOLECULAR & FUNCTIONAL IMAGING Diagnoses Acute right-sided low back pain with sciatica, sciatica laterality unspecified Procedures NM BONE WHOLE BODY BONE &/JOINT [place] [address] [place] [id number] [facility] [address] [place] [address] Referral ID Status Reason Start Date Expiration Date Visits Requested Visits Authorized [id number] Pending Review Auto-Generat ed Referral 06/21/2022 07/21/2023 1 1 Additional Source Comments INFORMATION SOURCE (unrecogn ized section and content) DATE CREATED AUTHOR 02/13/2018 [facility] DATE CREATED AUTHOR AUTHOR'S ORGANIZ ATION 02/09/2025 [facility] DATE CREATED AUTHOR AUTHOR'S ORGANIZ ATION 03/10/2025 [facility] DATE CREATED AUTHOR AUTHOR'S ORGANIZ ATION 03/12/2025 [facility] Goals (unrecognized section and content) Goals may be documented in a n alternate section Source Comments (unrecognize d section and content) In the event this informatio n is protected by the Federal Confidentiality of Alcohol and Drug Abuse Patient Records regulations: The Federal rules restrict any use of the information to criminally investigate or prosecute any alcohol or drug abuse patient.[facility] the event this information is protected by the Federal Confidentiality of Alcohol and Drug Abuse Patient Records regulations: The Federal rules restrict any use of the information to criminally investigate or prosecute any alcohol or drug abuse patient.[facility] the event this information is protected by the Federal Confidentiality of Alcohol and Drug Abuse Patient Records regulations: The Federal rules restrict any use of the information to criminally investigate or prosecute any alcohol or drug abuse patient.[facility] the event this information is protected by the Federal Confidentiality of Alcohol and Drug Abuse Patient Records regulations: The Federal rules restrict any use of the information to criminally investigate or prosecute any alcohol or drug abuse patient.[facility] the event this information is protected by the Federal Confidentiality of Alcohol and Drug Abuse Patient Records regulations: The Federal rules restrict any use of the information to criminally investigate or prosecute any alcohol or drug abuse patient.[facility] the event this information is protected by the Federal Confidentiality of Alcohol and Drug Abuse Patient Records regulations: The Federal rules restrict any use of the information to criminally investigate or prosecute any alcohol or drug abuse patient.[facility] the event this information is protected by the Federal Confidentiality of Alcohol and Drug Abuse Patient Records regulations: The Federal rules restrict any use of the information to criminally investigate or prosecute any alcohol or drug abuse patient.[facility] the event this information is protected by the Federal Confidentiality of Alcohol and Drug Abuse Patient Records regulations: The Federal rules restrict any use of the information to criminally investigate or prosecute any alcohol or drug abuse patient.[facility] Hospital[facility] the event this information is protected by the Federal Confidentiality of Alcohol and Drug Abuse Patient Records regulations: The Federal rules restrict any use of the information to criminally investigate or prosecute any alcohol or drug abuse patient.[facility] the event this information is protected by the Federal Confidentiality of Alcohol and Drug Abuse Patient Records regulations: The Federal rules restrict any use of the information to criminally investigate or prosecute any alcohol or drug abuse patient.[facility] Hospital[facility] the event this information is protected by the Federal Confidentiality of Alcohol and Drug Abuse Patient Records regulations: The Federal rules restrict any use of the information to criminally investigate or prosecute any alcohol or drug abuse patient.[facility] Hospital[facility] the event this information is protected by the Federal Confidentiality of Alcohol and Drug Abuse Patient Records regulations: The Federal rules restrict any use of the information to criminally investigate or prosecute any alcohol or drug abuse patient.[facility] Hospital[facility] the event this information is protected by the Federal Confidentiality of Alcohol and Drug Abuse Patient Records regulations: The Federal rules restrict any use of the information to criminally investigate or prosecute any alcohol or drug abuse patient.[facility] Hospital[facility] the event this information is protected by the Federal Confidentiality of Alcohol and Drug Abuse Patient Records regulations: The Federal rules restrict any use of the information to criminally investigate or prosecute any alcohol or drug abuse patient.[facility] Hospital[facility] the event this information is protected by the Federal Confidentiality of Alcohol and Drug Abuse Patient Records regulations: The Federal rules restrict any use of the information to criminally investigate or prosecute any alcohol or drug abuse patient.[facility] Hospital[facility] the event this information is protected by the Federal Confidentiality of Alcohol and Drug Abuse Patient Records regulations: The Federal rules restrict any use of the information to criminally investigate or prosecute any alcohol or drug abuse patient.[facility] Hospital[facility] the event this information is protected by the Federal Confidentiality of Alcohol and Drug Abuse Patient Records regulations: The Federal rules restrict any use of the information to criminally investigate or prosecute any alcohol or drug abuse patient.[facility] Reason for Visit (unrecogniz ed section and content) Reason Comments Consult Reason Comments No Show Reason Comments Chest Congestion cough, fever x 3 day s Reason Comments Results Reason Comments Medication Problem Reason Comments Established Patient Reason Comments avs 11/26 Reason Comments Orders Reason Comments Radiology NM Specialty Diagnoses / Procedures Referred By Contac t Referred To Contact MOLECULAR & FUNCTIONAL IMAGING Diagnoses Malignant neoplasm of upper-outer quadrant of right breast in female, estrogen receptor positive (HCC) Procedures NM BONE WHOLE BODY BONE &/JOINT IMAGING WHOLE BODY Ross Marion DO [address] [place] [address] Phone: tel: fax: Molecular Imaging [address] [place], [place] [id number] Phone: tel: Referral ID Status Reason Start Date Expiration Date V isits Requested Visits Authorized [id number] Closed Auto-Generate d Referral 11/26/2024 12/26/2025 1 1 Reason Comments Appointment Patient Question Care Teams (unrecognized sec tion and content) Team Status: Active Member Role/Relationship Status Dates Mallory Robertson MD Primary Care Provider Active Team Status: Inactive Member Role/Relationship Status Dates Dr. Rachelle Esparza MD Primary Care Provider Active Start: December 19, 2024 End: December 20, 2024 Dr. Jaime Saenz DO Attending Provider Activ e Start: December 19, 2024 End: December 20, 2024 Dr. Jaime Saenz DO Emergency Provider Activ e Start: December 19, 2024 End: December 20, 2024 Team Status: Inactive Member Role/Relationship Status Dates Dr. Elliot Stiles MD Attending Provider Active Start: January 23, 2025 End: January 23, 2025 Mallory Robertson MD Primary Care Provider Active St art: January 23, 2025 End: January 23, 2025 Mallory Robertson MD Referring Provider Active Start : January 23, 2025 End: January 23, 2025 Team Status: Inactive Member Role/Relationship Status Dates Mallory Robertson MD Primary Care Provider Active St art: February 07, 2025 End: February 07, 2025 Mallory Robertson MD Referring Provider Active Start : February 07, 2025 End: February 07, 2025 Dr. Elliot Stiles MD Attending Provider Active Start: February 07, 2025 End: February 07, 2025 Team Status: Inactive Member Role/Relationship Status Dates Mallory Robertson MD Primary Care Provider Active St art: February 13, 2025 End: February 13, 2025 Dr. Elliot Stiles MD Attending Provider Active Start: February 13, 2025 End: February 13, 2025 Dr. Elliot Stiles MD Referring Provider Active Start: February 13, 2025 End: February 13, 2025 Team Status: Active Member Role Status Dates Mallory Robertson MD Primary Care Provider Active Team Status: Inactive Member Role Status Dates Dr. Rachelle Esparza MD Primary Care Provider Active Start: December 19, 2024 End: December 20, 2024 Dr. Jaime Saenz DO Attending Provider Activ e Start: December 19, 2024 End: December 20, 2024 Dr. Jaime Saenz DO Emergency Provider Activ e Start: December 19, 2024 End: December 20, 2024 Team Status: Inactive Member Role Status Dates Dr. Elliot Stiles MD Attending Provider Active Start: January 23, 2025 End: January 23, 2025 Mallory Robertson MD Primary Care Provider Active St art: January 23, 2025 End: January 23, 2025 Mallory Robertson MD Referring Provider Active Start : January 23, 2025 End: January 23, 2025 [employer] Pipe Lines Supervisor Relationship Specialty Start Date End Date Rachelle Esparza MD [address] [place] [address] PCP - General Family Medicine 06/19/24 Adrianne Galicia RN Specialty Chief Port Director Oncology 03/02/18 Team Status: Active Member Role Status Dates Grant Gee WAREHOUSE PRICING AND INVENTORY CLERK, WAREHOUSE PRICING AND INVENTORY CLERK-C Family Provider Active Vicky Morales DO Primary Care Provider Active Team Status: Inactive Member Role Status Dates Vicky Morales DO Primary Care Provider Active Dr. Santana Cortes DO Emergency Provider Active [employer] Pipe [employer] Supervisor Relationship Specialty Start Date End Date Flynn Grant ([facility]) [address] [facility] [facility] [address] [place] [id number] PCP - General Family Medicine 03/01/18 Adrianne Galicia RN Specialty Chief Port Director Oncology 03/02/18 FOR RECORDS PERTAINING TO PATIENTS WHO ARE OR HAVE BEEN ENROLLED IN A CHEMICAL DEPENDENCY/SUBSTANCEABUSE PROGRAM, SOME INFORMATION MAY BE OMITTED. This clinical summary was aggregated from multiple sources. Caution should be exercised in using it in the provision of clinical care. This summary normalizes information from multiple sources, and as a consequence, information in this document may materially change the coding, format and clinical context of patient data. In addition, data may be omitted in some cases. CLINICAL DECISIONS SHOULD BE BASED ON THE PRIMARY CLINICAL RECORDS. [facility] [employer] provides no warranty or guarantee of the accuracy or completeness of information in this document.
[2025-04-05 21:17] LABS: Hematocrit 40.7 % (37-47); Hemoglobin 14.4 g/dL (12.0-15.0); Immature Granulocytes Count 0.020 X10^3/uL (0.0-0.0); Mean Corp Hgb Conc 35.4 g/dL (32-36); Mean Corpuscular Volume 86.0 fL (81-99); Mean Platelet Vol. 9.2 fl (6.2-12.0); NRBC Flagged by Analyzer 0 % (0-5); Platelet Count 294 K/mm3 (150-450); RBC Distribution Width CV 11.9 % (11.6-14.6); RBC Distribution Width SD 37.3 fl (35.1-43.9); Red Blood Count 4.73 M/mm3 (4.2-5.4); White Blood Count 7.6 K/mm3 (4.4-11.0)
[2025-04-05] MEDS: 0.9% Normal Saline (1000mL) 1,000 ML 1000 ML IV (21:31)
[2025-04-05] MEDS: DiphenhydrAMINE 50 MG/ML Syringe IV (21:32)
[2025-04-05 21:47] LABS: AST(SGOT) 22 U/L (<=31); Alanine Aminotransfer ALT/SGPT 15 U/L (<=34); Albumin, Serum 4.3 g/dL (3.5-5.0); Alkaline Phosphatase 76 U/L (35-104); Anion Gap 10 (5-15); BUN 15 mg/dL (4-19); BUN/Creat Ratio 15.0 RATIO (10-20); Calcium,Total 9.8 mg/dL (7.6-11.0); Carbon Dioxide 25.8 mmol/L (21.0-32.0); Chloride 104 mmol/L (98-108); Estimated Creatinine Clearance 86.93 ml/min (50-250); Globulin 2.8 g/dL (2.2-4.2); Glucose 89 mg/dL (70-99); Potassium 4.0 mmol/L (3.3-5.1)
[2025-04-05 22:00] VITALS: BP 141/98; PULSE 95; RESP 18; O2SAT 99
--- NOTE | 2025-04-05 22:30 | CT_ITS ---
PROCEDURE: CTA HEAD AND NECK W/ CONTRAST 04/05/2025 REASON FOR EXAM: UNEQUAL PUPILS , RIGHT SIDED NECK PAIN TECHNIQUE: CTA HEAD AND NECK W/ CONTRAST Multiplanar Sagittal and Coronal images were obtained. 3D and MIP post processing was performed. CONTRAST: Isovue 370 VOLUME: 100 mL One or more dose reduction techniques were used (e.g., Automated exposure control, adjustment of the mA and/or kV according to patient size, use of iterative reconstruction technique). RADIATION DOSE SUMMARY: DLP: 1610.77 mGycm COMPARISON: None. FINDINGS: CTA HEAD: Patent intracranial arterial vasculature. No large vessel occlusion, flow- limiting stenosis, saccular aneurysm, or vascular malformation identified. There is origin of bilateral posterior cerebral arteries with no visible connection to the basilar, an anatomic variant. Patent ophthalmic arteries. CTA NECK: Conventional aortic arch branching. Bilateral cervical carotid and vertebral arteries are patent without significant stenosis. No luminal irregularity to suggest aneurysm or dissection. NON-ANGIOGRAPHIC FINDINGS: Chronic left ostiomeatal unit pattern of sinusitis with complete opacification of left maxillary sinus and subtotal opacification of left frontal sinus and anterior left ethmoid air cells. CT/CTA Head AND Neck W/ Contrast IMPRESSION: 1. Normal CTA of the head and neck. No aneurysm. 2. Chronic left ostiomeatal unit sinus disease. Reading Location: [id number]
[2025-04-05 23:00] VITALS: BP 128/79; PULSE 78; RESP 16; O2SAT 98
[2025-04-06] VITALS (8 sets, daily range): BP systolic 125–147; BP diastolic 81–108; PULSE 71–110; RESP 16–18; TEMP 36.5–37; O2SAT 95–99; BMI 39.5
--- NOTE | 2025-04-06 00:28 | HP.PCM.HOS_ITS ---
[facility] - General General Date of Admission: 04/06/25 Date of Service: 04/06/25 Chief Complaint: Drooping Right Eye and Pain in the Lower Right Neck with Migraine Headache. [facility] Narrative MEGAN BAILEY, is a 39 F with a past medical history of essential hypertension; previously on clonidine prn TID and now not on treatment, obesity (class II); with BMI of 39.1 this admission on semaglutide, history of Right ER+ breast cancer; s/p bilateral mastectomy and hysterectomy (2015) with subsequent breast reconstruction with ruptured silicone breast implants necessitating their exchange followed by Dr. Stiles of plastic surgery and Dr. Marion of oncology, chronic Right hand swelling due to lymphedema after lymph node dissection from surgical treatment of breast cancer, history of DVT (provoked); not on anticoagulation, migraine headaches, neuropathy, history of syncope, history of renal calculus; s/p lithotripsy (2019), history of vitamin D deficiency, depression with anxiety; on bupropion, history of shingles, seasonal allergies and chronic neck pain; previously followed by Dr. Baltazar of pain management s/p botox injections in her neck (but she states she has not followed up with him since ~2019) who presents to [facility] ER complaining of drooping Right eye and pain in the lower Right neck with migraine headache. Ms. Bailey reports her symptoms began ~1.5 weeks ago with a persistent migraine headache and worsening Right neck pain with Right eyelid drooping with abnormally small Right pupil and blurry vision in addition to ~5/10 Migraine Headache that has persisted since that time. She admits to a long-standing history of intermittent neck pain for years that is usually worse at night with her neck pain increasing of the last ~1.5 weeks, particularly at night with this pain diverse form her previous pain as it used to go from her neck into her head and now it is going from her neck down into her shoulder. She also noticed increasing weakness in her Right hand with an increased tendency to drop things, which is new. She stated she was recently seen by Dr. Marion and had scan that were negative, but she notes her head was not scanned at that time. She denies similar previous episodes or known history of Elif's syndrome. She also denies associated fever, chills, night sweats, recent unintentional weight change, nausea, vomiting, diarrhea, constipation, chest pain, palpitations, heart racing, lower extremity edema, dysuria, hematuria or rash. 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 She was then admitted to the PCU for ongoing care for a stay that is expected to extend beyond 2 midnights. FORMERLY [facility], [facility] Medical History (Updated 04/06/25 @ 01:[address] Jeromy Ibarra DO) History of Holter monitoring Depression Anxiety DVT (deep venous thrombosis) Non-smoker History of stress test History of echocardiogram Seasonal allergies Hypertension History of breast cancer Home Medications ?Medication ?Instructions ?Recorded ?Last Taken ?Type bupropion HCl 300 mg 24 hr tablet, 300 mg PO QHS DEPRE SSION 12/19/24 04/05/25 History extended release semaglutide 1 mg/dose (4 mg/3 mL) 1 mg subcut TH WEIGH T LOSS 12/19/24 03/31/25 History subcutaneous pen injector zolpidem 5 mg tablet 10 mg PO QHS SLEEP 12/19/24 04/05/25 History Allergy/AdvReac Type Severity Reaction Status Date / Time azithromycin Allergy Anaphylaxis Verified 04/05/25 19:45 chlorhexidine (From Allergy Hives Verified 04/05/25 19:45 Hibiclens) iodine Allergy Hives Verified 04/05/25 19:45 povidone-iodine (From Allergy Hives Verified 04/05/25 19:45 Betadine) shellfish derived Allergy Anaphylaxis Verified 04/05/25 19:45 soap (From Betadine) Allergy Hives Verified 04/05/25 19:45 sumatriptan Allergy Rash Verified 04/05/25 19:45 morphine AdvReac Other Verified 04/05/25 19:45 ondansetron (From Zofran) AdvReac Constipatio Verified 04/05/25 19:45 n Family History Mother Breast cancer blood clots Depression Hypertension Osteoporosis Aunt Breast cancer Grandmother Breast cancer Surgical History (Updated 04/06/25 @ 01:[address] Jeromy Ibarra DO) History of lithotripsy History of hysterectomy History of breast reconstruction Hx of bilateral mastectomy History of lumpectomy of right breast History of right breast biopsy history of right fallopian tube removal History of arthroscopy of right knee Social History housing: house Smoking Status: Never smoker alcohol intake: current alcohol intake frequency: holidays/special occasions only Alcohol type: wine substance use type: does not use what type of physical activity do you participate in: none ROS ROS Narrative Review of Systems: Constitutional: Patient denies fever or chills. Eyes: Patient admits to drooping Right eyelid as per HPI. ENT: Patient admits to pain in base of Right neck as per HPI. She denies runny nose or sore throat. Resp: Patient denies SOB or cough. CV: Patient denies chest pain, palpitations, heart racing or LE edema. GI: Patient admits to nausea but she denies vomiting, diarrhea or constipation. : Patient denies dysuria or hematuria. MSK: Patient admits to spasm-like muscle pain in base of Right neck. Skin: Patient denies rash, abscess, wounds or jaundice. Psych: Patient denies symptoms of uncontrolled depression or anxiety. Neuro: Patient admits to drooping Right eyelid with constricted pupil in OD with persistent intractable migraine headache but she denies paresthesias or focal neurologic deficits. Allergy: Patient denies lip swelling, tongue swelling or urticaria. Hematology: Patient denies easy bleeding or easy bruisability. Endocrinology: Patient denies polyuria, polydipsia, polyphagia or heat/cold intolerance. 14 point ROS otherwise negative except for positives noted above in HPI. Vital Signs Vital Signs Vital Signs: 04/05/25 19:45 04/05/25 20:49 04/05/25 21:00 Temperature 98.6 F Temperature Source Temporal Pulse Rate 93 77 84 Respiratory Rate 18 16 18 Blood Pressure 147/106 H 151/114 H 155/106 H Blood Pressure Mean 119 126 122 Pulse Ox 99 99 100 Oxygen Delivery Method Room Air Room Air Room Air 04/05/25 22:00 04/05/25 23:00 Temperature Temperature Source Pulse Rate 95 78 Respiratory Rate 18 16 Blood Pressure 141/98 H 128/79 H Blood Pressure Mean 112 95 Pulse Ox 99 98 Oxygen Delivery Method Room Air Room Air Weight Weight: 220 lb 8 oz Body Mass Index (BMI) 39.0 Physical Exam Const alert, oriented x3 and no apparent distress Constitutional Narrative: Obese and nontoxic in appearance. General Appearance: cooperative HEENT normocephalic, head/scalp atraumatic, hearing grossly normal bilaterally and moist oral mucous membranes Eyes Eyes Narrative: Patient has drooping Right eyelid with miosis. Neck no lymphadenopathy, supple and no JVD Resp normal respiratory effort, no retractions, no use of accessory muscles and clear to auscultation bilaterally Cardio regular rate and regular rhythm GI normal to inspection, nondistended, normoactive bowel sounds, soft to palpation, non-tender and non-distended GI Narrative: Obese. Extremity normal to inspection, full ROM and no clubbing, cyanosis or edema Skin Skin Narrative: Patient has no evidence of rash, abscess, wounds or jaundice. Neuro oriented x3 and moves all extremities Neuro Narrative: Patient has drooping Right eyelid with miosis. Sensorium / Orientation: awake, alert, oriented to person, oriented to place and oriented to time Speech: speech normal Psych affect normal Results Medical Records Data Attestation: I reviewed the patient's medical records Lab / Micro Data Attestation: I reviewed the patient's lab results. 04/05/25 21:02 04/05/25 21:02 Labs: Laboratory Results - last 24 hr 04/05/25 21:02: WBC 7.6, RBC 4.73, Hgb 14.4, Hct 40.7, MCV 86.0, MCH 30.4, MCHC 35.4, RDW Std Deviation 37.3, RDW Coeff of Adwoa 11.9, Plt Count 294, MPV 9.2, Immature Gran % (Auto) 0.300, Neut % (Auto) 45.5 L, Lymph % (Auto) 42.9 H, [place] % (Auto) 8.0, Eos % (Auto) 2.6, Baso % (Auto) 0.7, Absolute Neuts (auto) 3.5, Absolute Lymphs (auto) 3.27, Nucleated RBC % 0, Sodium 140, Potassium 4.0, Chloride 104, Carbon Dioxide 25.8, Anion Gap 10, BUN 15, Creatinine 0.98, Estim Creat Clear Calc 86.93, Est GFR (MDRD) Non-Af 76, BUN/Creatinine Ratio 15.0, Glucose 89, Calcium 9.8, Total Bilirubin 0.29, AST 22, ALT 15, Alkaline Phosphatase 76, Total Protein 7.1, Albumin 4.3, Globulin 2.8, Albumin/Globulin Ratio 1.5, TSH 2.010 Imaging Radiology Impression Head/Neck CTA 04/05/25 22:30 IMPRESSION: 1. Normal CTA of the head and neck. No aneurysm. 2. Chronic left ostiomeatal unit sinus disease. Reading Location: [id number] Assessment & Plan Assessment/Plan (1) Horners syndrome: (2) Intractable migraine: QUALIFIERS: Migraine type: unspecified Status migrainosus presence: with status migrainosus Qualified Code(s): G43.911 - Migraine, unspecified, intractable, with status migrainosus (3) Sinusitis: QUALIFIERS: Chronicity: chronic Sinusitis location: unspecified location Qualified Code(s): J32.9 - Chronic sinusitis, unspecified (4) History of breast cancer: (5) Malignant neoplasm of upper-outer quadrant of right breast, estrogen receptor positive: QUALIFIERS: Patient sex: female Qualified Code(s): C50.411 - Malignant neoplasm of upper-outer quadrant of right female breast; Z17.0 - Estrogen receptor positive status [ER+] (6) Metastatic disease: QUALIFIERS: Area of secondary neoplastic involvement: unspecified site Qualified Code(s): C79.9 - Secondary malignant neoplasm of unspecified site (7) Hx of bilateral mastectomy: (8) Obesity (BMI 30-39.9): (9) Essential hypertension: PLAN: Plan 1. 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 Proceed with obtaining MRI with contrast of both the head and neck as per neurologist's recommendations. Patient has claustrophobia so she has been ordered lorazepam 1 mg IV ~45 minutes prior to procedure. Continue methylprednisolone IV begun in the ER. Check TSH, B12, Folate, HgbA1c, Lipid Profile, EVONNE and UDS. Give prochlorperazine IV prn for nausea and vomiting. Give ketorolac IV TID prn for pain or fever with listed allergies to both sumatriptan (rash) and morphine (?). Finally, we will give magnesium sulfate 1g IV x 1 as physiologic treatment for migraine and then we will reassess. Finally, we will consult [facility] to see this patient on-rounds in the AM for further recommendations with help appreciated in advance. 2. CT evidence of Chronic Left ostiomeatal unit pattern of Sinusitis with complete opacification of the Left maxillary sinus and subtotal opacification of the Left frontal sinus and anterior Left ethmoid air cells complicating #1 - Start ceftriaxone IV but avoid decongestants due to allergy profile. 3. History of Right ER+ Breast Cancer with Metastases; s/p bilateral mastectomy and hysterectomy (2015) with subsequent breast reconstruction with ruptured silicone breast implants necessitating their exchange followed by Dr. Stiles of plastic surgery compounding #1 & #2 - Noted with possible tumor as the underlying etiology of #1 which would necessitate transfer to tertiary care center. 4. Obesity (class II); with BMI of 39.1 this admission on semaglutide adding to the burden of disease outlined from #1 - #3 - Weight loss will be recommended. TSH in normal range at 2.05. This complicates her case and may hamper recovery. Hold semaglutide while inpatient. 5. Essential hypertension; previously on clonidine prn TID adding to the medical complexity of #1 - #4 - Give prn IV hydralazine for systolic > 160 mmHg. 6. Chronic Right hand swelling after lymph node dissection from surgical treatment of breast cancer - Stable. 7. History of DVT; not on anticoagulation - Noted with no evidence of recurrence at this time. 8. Neuropathy - Stable with patient currently not on treatment. 9. History of syncope - Noted. 10. History of renal calculus; s/p lithotripsy (2019) - Noted. 11. History of vitamin D deficiency - Check vitamin D level this admission. 12. Depression with anxiety; on bupropion - Resume bupropion as before. 13. History of shingles - Noted with no evidence of recurrence at this time. 14. Seasonal allergies - Stable. Give antihistamines prn for breakthrough symptoms. 15. DVT/GI prophylaxis - Enoxaparin 40 mg sq daily plus SCD's. Start pantoprazole 40 mg IV daily in light of steroids used to treat #1. Total time: Approximately (but not less than) 75 minutes. Charges/Coding Visit Charges Inpatient E&M: 98198 Init Hosp L3
[2025-04-06] MEDS: Orphenadrine 60 MG/2 ML Ampul IV (00:43)
--- NOTE | 2025-04-06 00:54 | EX.ED.DYSGE1 ---
HPI History of Present Illness Chief Complaint: Eye Problem Informant: patient Narrative Narrative: Patient is a 39-year-old female with history of metastatic breast cancer (has been treated and follows with Dr. Marion) as well as hypertension, provoked DVT (not currently on anticoagulation) and migraines presenting with a week and a half of worsening right sided neck pain, right eyelid drooping, abnormal right pupil and blurry vision. Patient states she has a longstanding history of neck pain that has been intermittent for years. States is usually worse at night. For the past week and a half she has had increased neck pain pain has been severe at night. She also notes about a week and a half ago she woke up with these eye symptoms. She never had this before. She states that her vision still feels not quite right but it is doing better. Initially her vision was very blurry. She denies any recent unintentional weight change, does not wear corrective lenses and denies any night sweats. She denies any fevers, nausea or vomiting. She does note that yesterday she did feel that she was dropping things more with her right hand but also notes that she has chronic swelling of her right hand associate with lymphedema from lymph node removal. She states that she has seen Dr. Baltazar of her pain management the past and had Botox injections in her neck but notes that all this feels different in her neck pain that used to go from her neck up into her head but now it goes down into her shoulder. No rash reported. [facility] Medical History (Updated 04/06/25 @ 01:[address] Nicci Layton, DO) History of Holter monitoring Depression Anxiety DVT (deep venous thrombosis) Non-smoker History of stress test History of echocardiogram Seasonal allergies Hypertension History of breast cancer Home Medications ?Medication ?Instructions ?Recorded ?Last Taken ?Type bupropion HCl 300 mg 24 hr tablet, 300 mg PO QHS DEPRESSION 12/19/24 04/05/25 History extended release semaglutide 1 mg/dose (4 mg/3 mL) 1 mg subcut TH WEIGHT LOSS 12/19/24 03/31/25 History subcutaneous pen injector zolpidem 5 mg tablet 10 mg PO QHS SLEEP 12/19/24 04/05/25 History Allergy/AdvReac Type Severity Reaction Status Date / Time corn Allergy Severe swelling Verified 04/05/25 19:45 Beef Containing Products Allergy Mild other Verified 04/05/25 19:45 azithromycin Allergy Anaphylaxis Verified 04/05/25 19:45 chlorhexidine (From Allergy Hives Verified 04/05/25 19:45 Hibiclens) iodine Allergy Hives Verified 04/05/25 19:45 povidone-iodine (From Allergy Hives Verified 04/05/25 19:45 Betadine) shellfish derived Allergy Anaphylaxis Verified 04/05/25 19:45 soap (From Betadine) Allergy Hives Verified 04/05/25 19:45 sumatriptan Allergy Rash Verified 04/05/25 19:45 morphine AdvReac Other Verified 04/05/25 19:45 ondansetron (From Zofran) AdvReac Constipatio Verified 04/05/25 19:45 n Family History Mother Breast cancer blood clots Depression Hypertension Osteoporosis Aunt Breast cancer Grandmother Breast cancer Surgical History (Updated 04/06/25 @ 01:[address] Jeromy Ibarra DO) History of lithotripsy History of hysterectomy History of breast reconstruction Hx of bilateral mastectomy History of lumpectomy of right breast History of right breast biopsy history of right fallopian tube removal History of arthroscopy of right knee Social History housing: house Smoking Status: Never smoker alcohol intake: current alcohol intake frequency: holidays/special occasions only Alcohol type: wine substance use type: does not use what type of physical activity do you participate in: none ROS ROS ED Constitutional Constitutional ED: Denies chills or fever(s) Eyes Eyes: Reports blurry vision right ENT ENT ED: Reports other Details: No tinnitus ; Denies ear pain or sore throat Cardiovascular Cardiovascular: Denies chest pain or palpitations Respiratory/Chest Respiratory/Chest: Denies cough Gastrointestinal Gastrointestinal: Denies abdominal pain or vomiting Musculoskeletal Musculoskeletal: Reports neck pain Integumentary Denies rash Neurologic Neurologic: Reports headache(s) and weakness; Denies paresthesias Hematologic/Lymphatic Hematologic/Lymphatic: Denies easy bleeding or easy bruising EXAM Physical Exam Const Vital Signs: 04/05/25 19:45 04/05/25 20:49 04/05/25 21:00 Temperature 98.6 F Temperature Source Temporal Pulse Rate 93 77 84 Respiratory Rate 18 16 18 Blood Pressure 147/106 H 151/114 H 155/106 H Blood Pressure Mean 119 126 122 Pulse Ox 99 99 100 Oxygen Delivery Method Room Air Room Air Room Air 04/05/25 22:00 04/05/25 23:00 04/06/25 00:00 Temperature Temperature Source Pulse Rate 95 78 71 Respiratory Rate 18 16 18 Blood Pressure 141/98 H 128/79 H 147/101 H Blood Pressure Mean 112 95 116 Pulse Ox 99 98 99 Oxygen Delivery Method Room Air Room Air Room Air 04/06/25 00:51 Temperature 98.6 F Temperature Source Pulse Rate 74 Respiratory Rate 18 Blood Pressure 147/101 H Blood Pressure Mean 116 Pulse Ox 98 Oxygen Delivery Method Positive well nourished and well developed General Appearance ED: well developed and NAD HEENT Reports TM's clear and moist mucous membranes Tympanic Membrane ED: Yes TM's clear Eyes EOMs intact bilaterally Eyes Narrative: Slight ptosis of the right upper eyelid. Unequal pupils. Right pupil is approximately 3 mm well left is 5 mm. Able to close both is fully when concentrating. No visual field cut appreciated. No afferent pupillary deficit appreciated. Chest Wall inspection of chest normal Resp normal respiratory effort and clear to auscultation bilaterally Cardio regular rate and regular rhythm Back/Spine Back/Spine Narrative: No midline C-spine tenderness. Right paraspinal neck tenderness present. Tenderness over the right trapezius. Extremity normal to inspection Neuro oriented x3, CN's II-XII intact bilaterally and no sensory deficits noted Neuro Narrative: NIH equals 0. Normal coordination of the extremities. Normal fiber artist strength bilaterally. Sensorium / Orientation: alert Motor Exam: strength 5/5 throughout Psych mental status grossly normal Skin no rashes or lesions noted and no wounds MDM MDM MDM Narrative Medical decision making narrative: Patient evaluated for a week and a half of worsening neck pain (chronic issue has been exacerbated) as well as drooping of her right eyelid and unequal pupils. On exam patient has ptosis and miosis. Concern for possible Elif syndrome. This is especially concerning given her neck pain and history of malignancy. Outpatient records reviewed [facility] and patient had a CT of the chest abdomen pelvis on 02/06/2025 which did not show any acute process or findings consistent with malignancy. Will obtain CTA of the head and neck looking for signs of aneurysm, artery dissection or other acute abnormality to explain her presentation. Patient does require pretreatment with Benadryl and methylprednisolone. She states that steroids often give her migraine so she is also empirically given IV fluids, Toradol and Reglan. She tolerates CT imaging well. Lab including CBC, CMP and TSH normal. CT of the head and neck does not show any acute process patient is have some chronic sinus disease but again this is on the opposite side and does not explain her presentation. I did speak with Dr. Ray, neurology, who recommends patient needs urgent MRI of the brain with and without contrast as well as MRI of the neck (specifies entire neck not just C-spine/spinal cord and vasculature) with and without contrast looking for structural infiltrative process that could cause it. States that if this is negative we can consider LP looking for carcinoma. Patient is agreeable. Patient is given further Norflex for her neck pain. Is given her evening bupropion. Case is discussed with hospitalist, Dr. Britt for admission. Lab Data Attestation: I reviewed the patient's lab results. Labs: Laboratory Results - last 24 hr 04/05/25 21:02 WBC 7.6 RBC 4.73 Hgb 14.4 Hct 40.7 MCV 86.0 MCH 30.4 MCHC 35.4 RDW Std Deviation 37.3 RDW Coeff of Adwoa 11.9 Plt Count 294 MPV 9.2 Immature Gran % (Auto) 0.300 Neut % (Auto) 45.5 L Lymph % (Auto) 42.9 H [place] % (Auto) 8.0 Eos % (Auto) 2.6 Baso % (Auto) 0.7 Absolute Neuts (auto) 3.5 Absolute Lymphs (auto) 3.27 Nucleated RBC % 0 Sodium 140 Potassium 4.0 Chloride 104 Carbon Dioxide 25.8 Anion Gap 10 BUN 15 Creatinine 0.98 Estim Creat Clear Calc 86.93 Est GFR (MDRD) Non-Af 76 BUN/Creatinine Ratio 15.0 Glucose 89 Calcium 9.8 Total Bilirubin 0.29 AST 22 ALT 15 Alkaline Phosphatase 76 Total Protein 7.1 Albumin 4.3 Globulin 2.8 Albumin/Globulin Ratio 1.5 TSH 2.010 Radiography Diagnostic Testing: Clinical Impression(s) from Imaging Studies Head/Neck CTA 04/05/25 22:30 IMPRESSION: 1. Normal CTA of the head and neck. No aneurysm. 2. Chronic left ostiomeatal unit sinus disease. Reading Location: [id number] Management Discussion w/another healthcare provider: Hospitalist and Boiler Repair Supervisor Discharge Plan Triage Chief Complaint: Eye Problem ED Provider: Nicci Layton Dx/Rx/DC Orders Clinical Impression: Horners syndrome, History of breast cancer, History of deep vein thrombosis Primary Care Provider: Mallory Robertson Disposition Disposition: Acute Care Hospital [facility]
--- OUTSIDE RECORDS SUMMARY | 2025-04-06 01:02 | XMS RPT_ITS | CCD ---
Author Organization [facility] CliniSysd Care Team Providers Care Logistics Intern Name Role Phone Monika Partida MD Unavailable Albert Parr Unavailable Hamilton Sam Unavailable Unavailable OSMANI ARTHUR Unavailable Unavailable PHYSICIAN, NONE Unavailable Unavailable Albert Parr Unavailable Monika Partida MD Unavailable [phone] Annie Alva Unavailable Unavailable PHYSICIAN, NONE Primary Care Physician Unavailab Grant Giang ([facility]) Primary Care Provider Grayson RN, Adrianne Unavailable Unavailable Grant Flynn ([facility]) Primary Care Provider Grayson RN, Adrianne [...] Provider Mallory Robertson MD Primary Care Provider Mallory Robertson MD Referring Provider MASCI, ROSS A Referring Unavailable ESPARZA, RACHELLE A Primary Care Unavailable MASCI, ROSS A Referring Unavailable ESPARZA, RACHELLE A Primary Care Unavailable Dr. Elliot Stiles MD Referring Provider [phone] Dr. Ross Marion DO Referring Provider Mallory Robertson MD Referring Provider [phone] Siska, Elloit Attending Unavailable Ailyn, Chalon Primary Care Unavailable [...] (5 sources) povidone-iodine drug allergy 03-09-20 17 [facility] Work Phone: (5 sources) Z PACK drug allergy 03-09-20 17 [facility] Work Phone: (20 sources) Azithromycin; Translations: [azithromycin] Drug Allergy 03-23-20 17 [facility] (9 sources) Chlorhexidine; Translations: [chlorhexidine topical] Drug All[facility] 04-12-20 [facility] (20 sources) Iodine; Translations: [iodine] Drug Allergy 03-22-20 19 Hives, Swelling [facility] Comment on above: burning (8 sources) Ondansetron; Translations: [ondansetron] Drug Allergy 12-26-19 23 Drug-induced constipation with proper administration [facility] (1 source) silver sulfADIAZINE; Translations: [silver sulfadiazine topical] Drug Allergy [facility] (10 sources) corn allergenic extract; Translations: [CORN] Drug Allergy 03-01-20 18 swelling [facility] (8 sources) Morphine Drug Allergy 04-12-20 21 Other [facility] Comment on above: HEADACHE, AGITATION (20 sources) Povidone-Iodine; Translations: [POVIDONE-IODINE] Drug Allergy 03-23-20 17 Unknown [facility] (9 sources) Shellfish; Translations: [shellfish derived] Allergy to substance 04-12-20 21 Anaphylaxis [facility] (8 sources) SUMAtriptan Drug Allergy 04-12-20 21 Rash [facility] (20 sources) Beef Containing Products; Translations: [BEEF CONTAINING PRODUCTS] Allergy to substance 03-01-20 18 Hives, Swelling [facility] Comment on above: upset stomach (9 sources) soap; Translations: [soap] Allergy to substance 04-12-20 21 Hives [facility] (17 sources) [place] silk preparation Drug Allergy 03-01-20 18 Hives, Swelling [facility] (19 sources) Shellfish; Translations: [SHELLFISH CONTAINING PRODUCTS] Drug Allergy 03-01-20 18 Anaphylaxis [facility] (19 sources) Skin Cleanser; Translations: [SKIN CLEANSER] Drug Allergy 03-01-20 18 Hives, Itching [facility] (1 source) Azithromycin Drug Allergy 03-07-20 25 [facility] (1 source) Chlorhexidine Drug Allergy 03-07-20 25 [facility] (1 source) corn extract Drug Allergy 03-07-20 25 [facility] (1 source) Iodine Drug Allergy 07 [facility] (1 source) Morphine Drug Allergy 03-07-20 [facility] (1 source) Ondansetron Drug Allergy 03-07-20 [facility] (1 source) Povidone-Iodine Drug Allergy 03-07-20 [facility] (1 source) SUMAtriptan Drug Allergy 03-07-20 [facility] (1 source) Beef Containing Products Drug allergy (disorder) 03-07-20 [facility] Medications Current Medications Medication Drug Class(es) [...] HCL 10-20 MG CAPS AMLODIPINE BESY-BENAZEPRIL HCL [id number] Albert Parr amoxicillin 875 mg / clavulanate [...] Cholecalciferol (Vitamin D3) 50,000 unit capsule Discontinued 40581 U PO EVERY WEEK 8 October 31, [...] November 13, 2023 12:05am Acute sinusitis, unspecified [id number] 0.3 ml EPINEPHrine 1 mg/ml auto-injector (9 [...] Ergocalciferol (Vitamin D2) 50,000 unit capsule Discontinued 99045 U PO EVERY WEEK 8 October 31, [...] q 6 hrs PRN pain TRAMADOL HCL [id number] Monika Partida MD valACYclovir 1000 mg oral [...] 11:24am Start: 01-25-2017 EFFEXOR XR 150 MG [id number] VENLAFAXINE HCL [id number] Albert Parr Start: 01-25-2017 EFFEXOR XR 150 MG [id number] VENLAFAXINE HCL [id number] Albert Parr Comment on above: Take 1 capsule by mo wvh once daily. Problems Active Problems Problem Classification [...] Report on 03-07-2025 Plastic Surgery Visit Report [facility] Plastic Reconstructive Surgery [address], [address] [place] [address] OFFICE VISIT Date of Service: 03/07/25 MR#: [id number] Acct: [id number] Name: MARGO VALERO Rep #: [id number] : 1985 Provider: Dr. Elliot Stiles MD Age/Sex: 39/F Location: [facility] Status: Signed Intake Vital Signs 01/08/25 15:50 [...] patient was advised to consult with a dredge hand for a perioperative anticoagulation plan and to [...] Breast asymm (more content not included)... Normal [facility] 03-05-2025 SILVINO Telephone (KUSH) MARGO VALERO ([id number]) 1985 F Date Time Provider Department 03/05/25 [...] Spoke w pt to schedule consult to [facility] which require the pt to call and schedule, pt was given the number to call and schedule at main [place] as closer locations are booked out further [...] for a recommendation to someone closer to [place]. If she is unsuccessful, she will contact [...] Order(s):CONSULT TO VASCULAR MEDICINE [19991125] Order #: [id number]: 1 FUTURE Prescriptions as of 03/10/2025 - [...] Encounter Status:Closed by LARISSA TANG on 03/10/25 [facility] MR/PATSherry 02-26-2025 MR/PETE.AMY [facility] Medical Records Department [address] [place] [address] PAT - Anesthesia 02/26/25 1607 MR#: [id number] Acct: [id number] Name: MARGO VALERO Rep #: [id number] : 1985 39 From: Roderick Ervin MD PCP: Dr. 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 - load manager Female Yes 02/26/25 15:28 HX of Motion [...] 01/08/25 15:50 Respiratory Assessment Respiratory Assessment - load manager: Respiratory Tract Infection Hx - load manager Hx Respiratory Tract Infection No 02/26/25 15:28 STOP Sleep Apnea STOP Sleep Apnea - load manager: STOP Sleep Apnea - load manager Hx Hypertension Yes: ON DAILY MED MANY [...] Tobacco Use History Tobacco Use History - load manager: Tobacco Use History - load manager Tobacco Use Smoking Status Never smoker 02/26/25 15:28 Hx Tobacco Use No 02/26/25 15:28 Years Smoking Packs Smoked per Day Smoking Cessation Date was within the last 15 years Hx Smoking Cessation Date Hx Smoking Cessation Counseling Hematologic Medial History Hematologic Hx - load manager: 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 Normal [facility] Breast Limited Unilateralon 02-13-2025 Breast Limited Unilateral [facility] Imaging Services [address], [place] [id number] Breast Limited Unilateral MR#: [id number] Acct: [id number] Name: MARGO VALERO Rep #: [id number] : 1985 F 39 From: Eliceo chapa MD PCP: Dr. Mallory Robertson MD Status: REG CLI Study: Breast Limited Unilateral Date of Exam: Exam# [id number] Ordering Dr: Elliot Stiles MD PROCEDURE: BREAST [...] MRI Recommended BI-RADS category 0 Reading Location: [id number] CC: Dr. Mallory Robertson MD; Dr. Elliot Stiles MD Varnish Remover: Signed Normal [facility] Breast Limited Unilateral [facility] Imaging Services [address], [place] [id number] Breast Limited Unilateral MR#: [id number] Acct: [id number] Name: MARGO VALERO Rep #: [id number] : 1985 F 39 From: Eliceo chapa MD PCP: Dr. Mallory Robertson MD Status: REG CLI Study: Breast Limited Unilateral Date of Exam: Exam# [id number] Ordering Dr: Elliot Stiles MD PROCEDURE: BREAST [...] - NEED ADDITIONAL IMAGING EVALUATION. Reading Location: [id number] CC: Dr. Mallory Robertson MD; Dr. Elliot Stiles MD Varnish Remover: Signed Normal [facility] Plastic Surgery Visit Report on 02-07-2025 Plastic Surgery Visit Report [facility] Plastic Reconstructive Surgery [address] [place] [address] OFFICE VISIT Date of Service: 02/07/25 MR#: [id number] Acct: [id number] Name: MARGO VALERO Rep #: [id number] : 1985 Provider: Dr. Elliot Stiles MD Age/Sex: 39/F Location: [facility] Status: Signed Intake Vital Signs 01/08/25 15:50 [...] of right breast in 2016 performed in [place]. Patient also underwent bilateral salpingo-oophorectom y/hysterectomy (BRCA positive). She reports wound healing issues following the reconstructive surgery with implants. Patient follows with Dr. Marion from [facility] oncology, who referred her to me out of concern for collapse of the left breast implant and potential collapse of the right breast implant. She has not had an MRI or any other imaging. No history of any radiation. 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 She was on oral blood thinner [...] contributed to (more content not included)... Normal [facility] CT ABD/PEL W IVCONon 025 CT ABD/PEL W IVCON * * *Final Report* * * DATE OF EXAM: Feb 06 2025 10:57AM [facility] [place] ABD/PEL W IVCON / [...] metastatic disease within the abdomen or pelvis. Varnish Remover: TIANA Transcribe Date/Time: Feb 06 2025 11:13A Dictated by : DMITRI STRICKLAND MD This examination was interpreted and the report reviewed and electronically signed by: DMITRI STRICKLAND MD on Feb 06 2025 11:22AM EST [id number] CN [facility] CT Abdomen and Pelvis W cont rast Stephen 02-06-2025 * * *Final Report* * * DATE OF EXAM: Feb 06 2025 10:57AM [facility] [place] ABD/PEL W IVCON / [...] a tiny umbilical hernia, containing omental fat. [facility] Provider, [facility] [place] - 02/06/2025 * * *Final Report* * * DATE OF EXAM: Feb 06 2025 10:57AM [facility] [place] CT ABD/PEL W IVCON / [...] metastatic disease within the abdomen or pelvis. Varnish Remover: TIANA Transcribe Date/Time: Feb 06 2025 11:13A Dictated by : DMITRI STRICKLAND MD This examination was interpreted and the report reviewed and electronically signed by: DMITRI STRICKLAND MD on Feb 06 2025 11:22AM EST [facility] CT CHEST W IVCONon 5 CT CHEST W IVCON * * *Final Report* * * DATE OF EXAM: Feb 06 2025 10:57AM [facility] [place] CT CHEST W IVCON / [...] metastatic disease within the abdomen or pelvis. Varnish Remover: PSCB Transcribe Date/Time: Feb 06 2025 11:13A Dictated by : DMITRI STRICKLAND MD This examination was interpreted and the report reviewed and electronically signed by: DMITRI STRICKLAND MD on Feb 06 2025 11:22AM EST [id number] [facility] CT Chest W contrast Stephen * * *Final Report* * * DATE OF EXAM: Feb 06 2025 10:57AM [facility] [place] - CT CHEST W IVCON / [...] a tiny umbilical hernia, containing omental fat. [facility] Provider, [facility] [place] - 02/06/2025 * * *Final Report* * * DATE OF EXAM: Feb 06 2025 10:57AM [facility] [place] CT CHEST W IVCON / [...] metastatic disease within the abdomen or pelvis. Varnish Remover: TIANA Transcribe Date/Time: Feb 06 2025 11:13A Dictated by : DMITRI STRICKLAND MD This examination was interpreted and the report reviewed and electronically signed by: DMITRI STRICKLAND MD on Feb 06 2025 11:22AM [facility] NURSING PROGon 02-06-2025 NURSING PROG HNO ID: [id number] Author: SHMUEL LOVE RN Service: Nursing Author [...] February 06, 2025 TIME: 9:59 AM Normal [facility] No Panel Informationon 02-06 IMPRESSION: No acute abdominal process is identified. No convincing CT evidence for metastatic disease to chest. No acute abdominal or pelvic process is identified. No convincing CT evidence for metastatic disease within the abdomen or pelvis. Varnish Remover: PSCB Transcribe Date/Time: Feb 06 2025 11:13A Dictated by : DMITRI STRICKLAND MD This examination was interpreted and the report reviewed and electronically signed by: DMITRI STRICKLAND MD on Feb 06 2025 11:22AM [facility] RADIOLOG[facility] Radiology Study observation (narrative) [facility] No Panel InformationOrdered By: [facility]cf Provider on 02-06-2025 [facility] Plastic Surgery Visit Report on 01-23-2025 Plastic Surgery Visit Report [facility] Plastic Reconstructive Surgery [address], [address] [place], [place] [id number] OFFICE VISIT Date of Service: 01/23/25 MR#: [id number] Acct: [id number] Name: MARGO VALERO Rep #: [id number] : 1985 Provider: Dr. Elliot Stiles MD Age/Sex: 39/F Location: [facility] Status: Signed Intake Vital Signs 12/19/24 20:43 [...] of right breast in 2016 performed in [place]. Patient also underwent bilateral salpingo-oophorectom y/hysterectomy (BRCA positive). She reports wound healing issues following the reconstructive surgery with implants. Patient follows with Dr. Marion from [facility] oncology, who referred her to me out of concern for collapse of the left breast implant and potential collapse of the right breast implant. She has not had an MRI or any other imaging. No history of any radiation. 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 She was on oral blood thinner [...] or abdominal (more content not included)... [facility] SILVINO Telephone (KUSH) MARGO VALERO ([id number]) 1985 F Date Time Provider Department 01/21/25 ROSS MARION During your visit today, we recorded the following information about you: Larissa Tang LPN 01/21/2025 10:02 AM Addendum PSS- please see phone note from 12/05/2024. Patient needs CT's scheduled at [facility] d/t iodine listed as an allergy with hives/swelling. Please contact her to schedule at [place]. Dr. Marion sent in a prednisone prep. Patient is aware of all instructions regarding prep. ERIKA Lawrence Naomi 01/21/2025 10:31 AM Signed Lvm for pt to call back and reschedule CT at [facility]. Dixie Shaikh 01/22/2025 8:38 AM Signed [...] Reason for Visit: Appointment [186] Patient Question [5637] Primary Visit Diagnosis:Malignant neoplasm of upper-outer quadrant [...] Encounter Status:Closed by LUISA LOPEZ on 02/12/25 [facility] 12 Lead EKGon 12-19-2024 12 Lead EKG [facility] Cardiovascular Services [address] [place] [address] 12 Lead EKG 12/19/24 2146 MR#: [id number] Acct: [id number] Name: MARGO VALERO Rep #: [id number] : 1985 39 From: Charlie Damon MD Attending Dr: Status: DEP ER [...] Normal ECG Confirmed by ETIENNE YOON, CHARLIE ([id number]), subeditor JAIR PAREDES ([id number]) on 12/20/2024 8:21:09 AM Referred By: [place] Confirmed By: CHARLIE DAMON MD 12/20/24820 Date Charlie Damon MD CC: Dr. Jaime Saenz, DO; Dr. Rachelle Esparza MD Signed Normal [facility] Absolute lymphocyte countOrd ered By: Jaime Saenz on 12-19-2024 Lymphocytes Auto (Unsp spec) [#/Vol] 3.05 10*3/uL 0.83-4.51 [facility] Absolute neutrophil countOrd ered By: Jaime Saenz on 12-19-2024 Neutrophils (Bld) [#/Vol] 4.6 10*3/uL 2.0-7.7 [facility] Anion gap in Serum or Plasma Ordered By: Jaime Saenz on 12-19-2024 Anion gap [Moles/Vol] 10 mmol/L 01-02 [facility] Automated lymphocyte count a s percentage of total leukocytesOrdered By: Jaime Saenz on 12-19-2024 Lymphocytes/100 WBC Auto (Unsp spec) 35.5 % [facility] BUN/creatinine ratioOrdered By: Jaime Saenz on 12-19-2024 Urea nitrogen/Creatinine [Mass ratio] 15.1 mg/mg - [facility] Basic Metabolic Profile (BMP )on 12-19-2024 BUN/CRE 15.1 RATIO Normal - [facility] Comment on above: Performed By: #### L 500.2500, L503.7505 #### [facility] [address] [place], [address] Calcium [Mass/Vol] 9.5 mg/dL Normal 7.6-11.0 [facility] Comment on above: Performed By: #### L 500.2500, L503.7505 #### [facility] [address] [place], [address] Chloride [Moles/Vol] 105 mmol/L Normal 98-108 [facility] Comment on above: Performed By: #### L 500.2500, L503.7505 #### [facility] [address] [place], [address] CO2 [Moles/Vol] 25.5 mmol/L Normal 21.0-32.0 [facility] Comment on above: Performed By: #### L 500.2500, L503.7505 #### [facility] [address] [place], [address] Creatinine [Mass/Vol] 0.92 mg/dL Normal 0.70-1.20 [facility] Comment on above: Performed By: #### L 500.2500, L503.7505 #### [facility] [address] [place], [address] ECRCL 95.75 ml/min Normal 50-250 [facility] Comment on above: Performed By: #### L 500.2500, L503.7505 #### [facility] [address] [place], [address] GAP 10 Normal 5-15 [facility] Comment on above: Performed By: #### L 500.2500, L503.7505 #### [facility] [address] [place], [address] GFR/1.73 sq M.predicted among non-blacks MDRD (S/P/Bld) [Vol rate/Area] 82 mL/min/{1.73_m2} Normal >60 [facility] Comment on above: Result Comment: mL/m in/1.73m2 CKD-EPI Creatinine Equation (2020) Performed By: #### L 500.2500, L503.7505 #### [facility] [address] [place], [address] Glucose [Mass/Vol] 87 mg/dL Normal 70-99 [facility] Comment on above: Performed By: #### L 500.2500, L503.7505 #### [facility] [address] [place], [address] Potassium [Moles/Vol] 3.5 mmol/L Normal 3.3-5.1 [facility] Comment on above: Performed By: #### L 500.2500, L503.7505 #### [facility] [address] [place], [address] Sodium [Moles/Vol] 140 mmol/L Normal 133-145 [facility] Comment on above: Performed By: #### L 500.2500, L503.7505 #### [facility] [address] [place], [address] Urea nitrogen [Mass/Vol] 14 mg/dL Normal 4-19 [facility] Comment on above: Performed By: #### L 500.2500, L503.7505 #### [facility] [address] [place], [address] Basophil percentageOrdered B y: Jaime Saenz on 12-19-2024 Basophils/100 WBC (Bld) 0.7 % 0-1 [facility] Brain/Head without Contrasto n 12-19-2024 Brain/Head without Contrast [facility] Imaging Services [address] [place] [address] Brain/Head without Contrast MR#: [id number] Acct: [id number] Name: MARGO VALERO Rep #: [id number] : 1985 F 39 From: Ladarius moon MD PCP: Dr. Rachelle Esparza MD Status: REG ER Study: Brain/Head without Contrast Date of Exam: 09/14 Exam# [id number] Ordering Dr: Jaime Saenz DO PROCEDURE: BRAIN/HEAD [...] Jaime Saenz DO; Dr. Rachelle Esparza MD Varnish Remover: Signed Normal [facility] CBC W/Diff, Automatedon 05- Absolute Lymph 3.05 X10 3/uL Normal 0.83-4.51 [facility] Comment on above: Performed By: #### L 100.0100, L501.4021 #### [facility] [address] [place], [address] Absolute Neut 4.6 X10 3/uL Normal 2.0-7.7 [facility] Comment on above: Performed By: #### L 100.0100, L501.4021 #### [facility] [address] [place], [address] Basophils/100 WBC (Bld) 0.7 % Normal 0-1 [facility] Comment on above: Performed By: #### L 100.0100, L501.4021 #### [facility] [address] [place], [address] Eosinophils/100 WBC (Bld) 3.1 % Normal 0-5 [facility] Comment on above: Performed By: #### L 100.0100, L501.4021 #### [facility] [address] [place], [address] Erythrocyte distribution width (RBC) [Ratio] 11.9 % Normal 11.6-14.6 [facility] Comment on above: Performed By: #### L 100.0100, L501.4021 #### [facility] [address] [place], [address] Hematocrit (Bld) [Volume fraction] 40.6 % Normal 37-47 [facility] Comment on above: Performed By: #### L 100.0100, L501.4021 #### [facility] [address] [place], [address] Hemoglobin (Bld) [Mass/Vol] 14.5 g/dL Normal 12.0-15.0 [facility] Comment on above: Performed By: #### L 100.0100, L501.4021 #### [facility] [address] [place], [address] IG% 0.200 Normal 0.0-0.9 [facility] Comment on above: Result Comment: IG% - Immature Granulocytes (promyelocytes, myelocytes and metamyelocytes) > 1% indicates that a LEFT SHIFT is Present. Performed By: #### L 100.0100, L501.4021 #### [facility] [address] [place], [address] Lymphocytes/100 WBC (Bld) 35.5 % Normal 19-41 [facility] Comment on above: Performed By: #### L 100.0100, L501.4021 #### [facility] [address] [place], [address] MCH (RBC) [Entitic mass] 30.4 pg Normal 27.0-32.0 [facility] Comment on above: Performed By: #### L 100.0100, L501.4021 #### [facility] [address] [place], [address] MCHC (RBC) [Mass/Vol] 35.7 g/dL Normal 32-36 [facility] Comment on above: Performed By: #### L 100.0100, L501.4021 #### [facility] [address] [place], [address] MCV (RBC) [Entitic vol] 85.1 fL Normal 81-99 [facility] Comment on above: Performed By: #### L 100.0100, L501.4021 #### [facility] [address] [place], [address] Monocytes/100 WBC (Bld) 6.6 % Normal 0-10 [facility] Comment on above: Performed By: #### L 100.0100, L501.4021 #### [facility] [address] [place], [address] Neutrophils/100 WBC (Bld) 53.9 % Normal 47-70 [facility] Comment on above: Performed By: #### L 100.0100, L501.4021 #### [facility] [address] [place], [address] Nucleated RBC (Bld) [#/Vol] 0 10*3/uL Normal 0-5 [facility] Comment on above: Performed By: #### L 100.0100, L501.4021 #### [facility] [address] [place], [address] Platelet mean volume (Bld) [Entitic vol] 9.0 fL Normal 6.2-12.0 [facility] Comment on above: Performed By: #### L 100.0100, L501.4021 #### [facility] [address] [place], [address] Platelets (Bld) [#/Vol] 285 10*3/uL Normal 150-450 [facility] Comment on above: Performed By: #### L 100.0100, L501.4021 #### [facility] [address] [place], [address] RBC (Bld) [#/Vol] 4.77 10*6/uL Normal 4.2-5.4 [facility] Comment on above: Performed By: #### L 100.0100, L501.4021 #### [facility] [address] [place] [place], [address] RDW SD 36.0 fl Normal 35.1-43.9 [facility] Comment on above: Performed By: #### L 100.0100, L501.4021 #### [facility] [address] [place] [place], [address] WBC (Bld) [#/Vol] 8.6 10*3/uL Normal 4.4-11.0 [facility] [place] [facility] Comment on above: Performed By: #### L 100.0100, L501.4021 #### [facility] [address] [place], [address] Carbon dioxide, total [Moles /volume] in Central venous bloodOrdered By: Jaime Saenz on 12-19-2024 CO2 [Moles/Vol] 25.5 mmol/L 21.0-32.0 [facility] Chest PA and Lateralon 12-19 Chest PA and Lateral [facility] Imaging Services [address] [place] [address] Chest PA and Lateral MR#: [id number] Acct: [id number] Name: MARGO VALERO Rep #: [id number] : 1985 F 39 From: Ladarius moon MD PCP: Dr. Rachelle Esparza MD Status: REG ER Study: Chest PA and Lateral Date of Exam: 12/19/24 Exam# [id number] Ordering Dr: Jaime Saenz DO PROCEDURE: CHEST [...] Jaime Saenz DO; Dr. Rachelle Esparza MD Varnish Remover: Signed Normal [facility] Chloride assayOrdered By: Fly Saenz on 12-19-2024 Chloride [Moles/Vol] 105 mmol/L 98-108 [facility] Emergency Department Summary on 12-19-2024 Emergency Department Summary [facility] Medical Records Department [address] [place] [address] Emergency Department Summary 12/19/24 MR#: [id number] Acct: [id number] Name: MARGO VALERO Rep #: [id number] : 1985 39 From: Jaime Saenz DO [...] intact Psych: Cooperative, appropriate mood and affect [facility] Medical History Chronic pain Seasonal allergies [...] 81 74 (more content not included)... Normal [facility] Eosinophil percentageOrdered By: Jaime Saenz on 12-19-2024 Eosinophils/100 WBC (Bld) 3.1 % 0-5 [facility] Erythrocyte distribution wid th ratioOrdered By: Jaime Saenz on 12-19-2024 Erythrocyte distribution width (RBC) [Ratio] 11.9 % 11.6-14.6 [facility] Erythrocyte distribution wid th standard deviationOrdered By: Jaime sedrick Ascencio on 12-19-2024 Erythrocyte distribution width (RBC) [Ratio] 36.0 fl 35.1-43.9 [facility] Glomerular filtration rate ( GFR) estimation/1.73 sq m using serum, plasma, or whole bOrdered By: Jaimejese Saenz on 12-19-2024 GFR/1.73 sq M.predicted among non-blacks MDRD (S/P/Bld) [Vol rate/Area] 82 mL/min/{1.73_m2} >60 [facility] Comment on above: mL/min/1.73m2 CKD-EP I Creatinine Equation (2020) Hematocrit Auto (Bld) [Volum e fraction]Ordered By: [facility]ey[facility] on 12-19-2024 Hematocrit (Bld) [Volume fraction] 40.6 % 37-47 [facility] Hemoglobin measurementOrdere d By: [facility] on 12-19-2024 Hemoglobin (Bld) [Mass/Vol] 14.5 g/dL 12.0-15.0 [facility] Immature granulocytes/100 WB C Auto (Bld)Ordered By: [facility] CountysedrickSilva on 12-19-2024 Immature granulocytes/100 WBC (Bld) 0.200 % 0.0-0.9 [facility] Comment on above: IG% - Immature Granu locytes (promyelocytes, myelocytes and metamyelocytes) > 1% indicates that a LEFT SHIFT is Present. L499.0042on 12-19-2024 Trop T High Sen < 6 Normal <=14 [facility] Comment on above: Performed By: #### L 499.0042 #### [facility] [address] [place], [address] L501.4021on 12-19-2024 Trop T High Sen 6 ng/L Normal <=14 [facility] Comment on above: Order Comment: *ADD ON* Performed By: #### L 100.0100, L501.4021 #### [facility] [address] [place], [address] l503.7505on 12-19-2024 proBNP < 36 Normal <=450 [facility] Comment on above: Result Comment: Hear t Failure Unlikely: < 300 pg/mL Heart Failure Likely < 50 Years: > 450 pg/mL 50-75 Years: > 900 pg/mL >75 Years: > 1800 pg/mL Performed By: #### L 500.2500, L503.7508 #### [facility] [address] [place], [place], [address] MCV (mean corpuscular volume ) determinationOrdered By: Jaime Saenz on 12-19-2024 MCV (RBC) [Entitic vol] 85.1 fL 81-99 [facility] Mean corpuscular hemoglobin (MCH) determinationOrdered By: Jaime Saenz on 12-19-2024 MCH (RBC) [Entitic mass] 30.4 pg 27.0-32.0 [facility] Mean corpuscular hemoglobin concentration (MCHC) determinationOrdered By: Jaime Dany on 12-19-2024 MCHC (RBC) [Mass/Vol] 35.7 g/dL 32-36 [facility] Mean platelet volume determi nationOrdered By: Jaime Saenz on 12-19-2024 Platelet mean volume (Bld) [Entitic vol] 9.0 fL 6.2-12.0 [facility] Monocyte percentageOrdered B y: Jaime Saenz on 12-19-2024 Monocytes/100 WBC (Bld) 6.6 % 0-10 [facility] Natriuretic peptide.B prohor mireya N-Terminal [Mass/volume] in Serum or PlasmaOrdered By: Jaime Saenz on 12-19-2024 Natriuretic peptide.B prohormone N-Terminal [Mass/Vol] < 36 pg/mL <450 [facility] Comment on above: Heart Failure Unlike ly: < 300 pg/mLHeart Failure Likely< 50 Years: > 450 pg/mL50-75 Years: > 900 pg/mL>75 Years: > 1800 pg/mL Neutrophil percentageOrdered By: Jaime Saenz on 12-19-2024 Neutrophils/100 WBC (Bld) 53.9 % 47-70 [facility] Nucleated red blood cell per centageOrdered By: Jaime Saenz on 12-19-2024 Nucleated RBC/100 WBC (Bld) [Ratio] 0 % 0-5 [facility] Platelet countOrdered By: Fly Saenz on 12-19-2024 Platelets (Bld) [#/Vol] 285 10*3/uL 150-450 [facility] Potassium measurement (mass/ volume)Ordered By: Jaime Saenz on 12-19-2024 Potassium (Unsp spec) [Mass/Vol] 3.5 mmol/L 3.3-5.1 [facility] RBC Auto (Bld) [#/Vol]Ordere d By: Jaime Saenz on 12-19-2024 RBC (Bld) [#/Vol] 4.77 10*6/uL 4.2-5.4 [facility] Serum creatinine measurement (mass/volume)Ordered By: Jaime Saenz on 12-19-2024 Creatinine [Mass/Vol] 0.92 mg/dL 0.70-1.20 [facility] Serum glucose measurement (m ass/volume)Ordered By: Jaime Saenz on 12-19-2024 Glucose [Mass/Vol] 87 mg/dL 70-99 [facility] [place] [facility] Serum or plasma calcium sruthi urement (mass/volume)Ordered By: Jaime Ascencio on 12-19-2024 Calcium [Mass/Vol] 9.5 mg/dL 7.6-11.0 [facility] [place] [facility] Serum or plasma urea nitroge n measurement (mass/volume)Ordered By: Jaime Saenz on 12-19-2024 Urea nitrogen [Mass/Vol] 14 mg/dL 4-19 [facility] Sodium levelOrdered By: Franck Saenz on 12-19-2024 Sodium [Moles/Vol] 140 mmol/L 133-145 [facility] [place] [facility] Troponin T.cardiac [Mass/vol ume] in Serum or Plasma by High sensitivity methodOrdered By: Jaime Saenz on 12-19-2024 Troponin T.cardiac High sensitivity method [Mass/Vol] < 6 ng/L <14 [facility] Troponin T.cardiac High sensitivity method [Mass/Vol] 6 ng/L <14 [facility] White blood cell (WBC) count Ordered By: Jaime Saenz on 12-19-2024 WBC (Bld) [#/Vol] 8.6 10*3/uL 4.4-11.0 [facility] BONE WHOLE BODYon 025 TX BONE WHOLE BODY * * *Final Report* * * DATE OF EXAM: Dec 06 2024 3:50PM WON 0014 - TX BONE WHOLE BODY / PROCEDURE REASON: Malignant [...] IMPRESSION: No scintigraphic evidence of osteoblastic metastasis. Varnish Remover: TIANA Transcribe Date/Time: Dec 06 2024 5:49P Dictated by : TURNER NORIEGA MD This examination was interpreted and the report reviewed and electronically signed by: TURNER NORIEGA MD on Dec 06 2024 5:51PM EST [id number] CN Normal [facility] Whole body Bone Viewson 0 12-06-2024 IMPRESSION: No scintigraphic evidence of osteoblastic metastasis. Varnish Remover: TIANA Transcribe Date/Time: Dec 06 2024 5:49P Dictated by : TURNER NORIEGA MD This examination was interpreted and the report reviewed and electronically signed by: TURNER NORIEGA MD on Dec 06 2024 5:51PM [facility] DIVISION OF RADIOLOGY * [...] bladder uptake confirmed. DIVISION OF RADIOLOGY Provider, [facility] - 12/06/2024 * * *Final Report* [...] IMPRESSION: No scintigraphic evidence of osteoblastic metastasis. Varnish Remover: TIANA Transcribe Date/Time: Dec 06 2024 5:49P Dictated by : TURNER NORIEGA MD This examination was interpreted and the report reviewed and electronically signed by: TURNER NORIEGA MD on Apr 18 2025 5:51PM [facility] Radiology Study observation (narrative) Kelly singleton [facility] Whole body Bone ViewsOrde red By: Ccf Provider on 12-06-2024 [facility] Carmen 12-05-2024 SILVINO Telephone (KUSH) MARGO VALERO ([id number]) 1985 F Date Time Provider Department 12/05/24 ROSS MARION During your visit today, we recorded the following information about you: Larissa Tang LPN 12/05/2024 12:29 PM Signed supply technician called. Patient is allergic to Iodine- hives/swelling. CT orders updated to WO IV or Oral contrast. Please file new orders. ERIKA Lawrence Melanie, LPN 12/05/2024 4:04 PM Addendum PSS- patient needs to be scheduled at [facility] for her CT C/A/P d/t iodine listed as an allergy with hives/swelling. Please contact her to schedule at [place]. Dr. Marion sent in a prednisone prep. [...] Encounter Status:Closed by NEDA CHANDRA on 12/06/24 [facility] CNOVSPon 11-26-2024 CNOVS Visit (SP) Office (KUSH) MARGO VALERO ([id number]) 1985 F Date Time Provider Department 11/26/24 [...] 05/01/2015. 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 Genetic testing revealed that she was BRCA2 positive. She did not receive adjuvant radiation treatment evidently because of delayed healing from surgery which was attributed to chemotherapy. She had undergone hysterectomy and bilateral salpingo-oophorectom y several years previously and was therefore started on anastrozole after surgery. Had permanent implants placed. She was living in [place] but moved to [place] with her in 2016. She was seen [...] needle bx with path showing ER 99% MS 1% Her 2 1+ Fish non amp Ki 67 17% grade 3 IDC 06/03/[address] sampling with [address] (out of 8), excision bx of primary site with 3 foci of IDC - clinical stage cT2N1 Neodj ACT completed 09/17/15 10/24/2015 bilateral mastectomy (R therapeutic modified radical mastectomy with ALND and L prophylactic) with licensed staff mft - path stage [id number] Germline testing BRCA 2 positive Did not receive adj RT due to delayed healing from surgery (attributed to chemo) (more content not included)... Normal [facility] Carmen 11-26-2024 SILVINO Telephone (KUSH) MARGO VALERO ([id number]) 1985 F Date Time Provider Department 11/26/24 [...] Encounter Status:Closed by LUISA LOPEZ on [facility]09/[facility] ([id number]) 1985 F Date Time Provider Department 11/26/24 [...] Encounter Status:Closed by LUX ESCOBAR on 12/01/24 [facility] ([id number]) 1985 F Date Time Provider Department 06/20/24 ROSA MARTINEZ [facility] During your visit today, we recorded the following information about you: Katiuska Garcia RN 06/20/2024 9:00 AM Signed Pt called in and reports she was seen in on 06/19/24. She states the provider told her she would call in a steroid and a cough suppressant to [facility] in [place]. Please call and advise Pt. I told [...] Encounter Status:Closed by ARLETTE ANGULO on 06/20/24 [facility] Jesus 06-19-2024 CNOV Office Visit (UCWSTR) MARGO VALERO ([id number]) 1985 F Date Time Provider Department 06/19/24 5:00 PM ROSA MARTINEZ [facility] During your visit today, we recorded the following information about you: Temperature Pulse Respiration Blood pressure 98.7 degrees 96/minute 16/minute 128/82 Weight 106.7 kg Rosa Martinez PA 06/19/2024 6:46 PM Signed This note was created using [employer]. Subjective Margo Valero is a 38 year [...] [Povidone-Iodine], Z Yvrose [Azithromycin], Beef Containing Products, [place], Iodine, and Skin Cleanser MEDICATIONS buPROPion XL [...] Cmt: cou (more content not included)... [facility] (UCWSTR) MARGO VALERO ([id number]) 1985 F Date Time Provider Department 06/19/24 TERI THORNTON [facility] During your visit today, we recorded the following information about you: Teri Thornton APRN.[facility] 06/19/2024 8:02 PM Signed Xray reveals atelectasis. [...] Status:Closed by TERI THORNTON on 06/19/24 Normal [facility] XR CHEST 2V FRONTAL/LATon XR CHEST [...] soft tissues: Unremarkable. IMPRESSION: Right infrahilar atelectasis. Varnish Remover: TIANA Transcribe Date/Time: Jun 19 2024 7:33P Dictated by : SISSY DIEGO MD This examination was interpreted and the report reviewed and electronically signed by: SISSY DIEGO MD on Jun 19 2024 7:33PM EST [id number] Normal [facility] XR Chest PA and Lateralon IMPRESSION: Right infrahilar atelectasis. Varnish Remover: PSCB Transcribe Date/Time: Jun 19 2024 7:33P [...] soft tissues: Unremarkable. DIVISION OF RADIOLOGY Provider, [facility] [place] - 06/19/2024 * * *Final Report* * [...] tissues: Unremarkable. IMPRESSION IMPRESSION: Right infrahilar atelectasis. Varnish Remover: PSCB Transcribe Date/Time: Jun 19 2024 7:33P Dictated by : SISSY DIEGO MD This examination was interpreted and the report reviewed and electronically signed by: SISSY DIEGO MD on Jun 19 2024 7:33PM EST [facility] Radiology Study observation (narrative) [facility] XR Chest PA and LateralOrder ed By: Ccf Provider on 06-19-2024 [facility] Gram stain for investigation of transfusion reactionOrdered By: Eric Najera on 11-03-2023 Microscopic observation Gram stain Nom (Unsp spec) [facility] Routine wound cultureOrdered By: Eric Najera on 11-03-2023 Bacteria identified Cx Nom (Wound) No growth aerobically. [facility] Absolute lymphocyte countOrd ered By: Vicky Morales on 01-30-2023 Lymphocytes Auto (Unsp spec) [#/Vol] 2.35 10*3/uL 0.83-4.51 [facility] Basophil percentageOrdered B y: Vicky Morales on 01-30-2023 Basophils/100 WBC (Bld) 0.7 % 0-1 [facility] Bilirubin [Mass/Vol] 0.50 mg/dL 0.20-1.00 [facility] Comment on above: For patients on eltr ombopag therapy, use of Dimension [place] TBIL is not recommended. Chloride [Moles/Vol] 107 mmol/L 98-107 [facility] Eosinophils/100 WBC (Bld) 1.6 % 0-5 [facility] Glucose [Mass/Vol] 92 mg/dL 74-106 [facility] Neutrophils (Bld) [#/Vol] 3.2 10*3/uL 2.0-7.7 [facility] Neutrophils/100 WBC (Bld) 52.2 % 47-70 [facility] Potassium [Moles/Vol] 3.9 mmol/L 3.5-5.1 [facility] Protein [Mass/Vol] 7.2 g/dL 6.4-8.2 [facility] Sodium [Moles/Vol] 138 mmol/L 136-145 [facility] WBC (Bld) [#/Vol] 6.1 10*3/uL 4.4-11.0 [facility] Blood erythrocytes count (nu mber/volume)Ordered By: Vicky Morales on 01-30-2023 RBC (Bld) [#/Vol] 5.22 10*6/uL 4.2-5.4 [facility] Blood hemoglobin measurement (mass/volume)Ordered By: Vicky Morales on 01-30-2023 Hemoglobin (Bld) [Mass/Vol] 14.8 g/dL 12.0-15.0 [facility] Blood lymphocytes/100 leukoc ytesOrdered By: Vicky Morales on 01-30-2023 Lymphocytes/100 WBC (Bld) 38.6 % 19-41 [facility] Blood monocytes/100 leukocyt esOrdered By: Vicky Morales on 01-30-2023 Monocytes/100 WBC (Bld) 6.6 % 0-10 [facility] Blood platelet mean volumeOr dered By: Vicky Morales on 01-30-2023 Platelet mean volume (Bld) [Entitic vol] 9.3 fL 6.2-12.0 [facility] Determination of erythrocyte mean corpuscular volume (MCV)Ordered By: Vicky Morales on 01-30-2023 MCV (RBC) [Entitic vol] 84.7 fL 81-99 [facility] Hematocrit Auto (Bld) [Volum e fraction]Ordered By: Vicky Morales on 01-30-2023 Hematocrit (Bld) [Volume fraction] 44.2 % 37-47 [facility] - Chemistry and C hemistry - challengeOrdered By: Vicky Morales on 01-30-2023 ALP [Catalytic activity/Vol] 88 U/L 45-117 [facility] ALT [Catalytic activity/Vol] 27 U/L 13-56 [facility] CO2 [Moles/Vol] 23.0 mmol/L 21.0-32.0 [facility] Globulin (S) [Mass/Vol] 3.6 g/dL 2.2-4.2 [facility] Urea nitrogen/Creatinine [Mass ratio] 13.9 mg/mg 10-20 [facility] - Hematology and Cell countsOrdered By: Vicky Morales on 01-30-2023 Erythrocyte distribution width (RBC) [Entitic vol] 38.5 fL 35.1-43.9 [facility] Erythrocyte distribution width (RBC) [Ratio] 12.6 % 11.6-14.6 [facility] Immature granulocytes/100 WBC (Bld) 0.300 % 0.0-0.9 [facility] Comment on above: IG% - Immature Granu locytes (promyelocytes, myelocytes and metamyelocytes) > 1% indicates that a LEFT SHIFT is Present. MCH (RBC) [Entitic mass] 28.4 pg 27.0-32.0 [facility] Nucleated RBC/100 WBC (Bld) [Ratio] 0 % 0-5 [facility] Auto (RBC) [Mass/Vol]Or dered By: Vicky Morales on 01-30-2023 MCHC (RBC) [Mass/Vol] 33.5 g/dL 32-36 [facility] No Panel InformationOrdered By: Vicky Morales on 01-30-2023 Estimated GFR (MDRD) Amer 79 mL/min >60 [facility] Comment on above: GFR Calc Estimated GFR (MDRD) Non-Af Amer 65 mL/min >60 [facility] Comment on above: Non- GFR Calc Thyroid Stimulating Hormone (TSH) 1.29 uIU/mL 0.358-3.74 [facility] Platelets bldOrdered By: Bonnie Morales on 01-30-2023 Platelets (Bld) [#/Vol] 279 10*3/uL 150-450 [facility] Serum or plasma albumin sruthi urement (mass/volume)Ordered By: Vicky Morales on 01-30-2023 Albumin [Mass/Vol] 3.6 g/dL 3.2-5.0 [facility] Serum or plasma albumin/glob ulin mass ratioOrdered By: Vicky Morales on 01-30-2023 Albumin/Globulin [Mass ratio] 1.0 {ratio} 0.9-2.4 [facility] Serum or plasma calcium sruthi urement (mass/volume)Ordered By: Vicky Morales on 01-30-2023 Calcium [Mass/Vol] 9.5 mg/dL 8.5-10.1 [facility] Serum or plasma creatinine m easurement (mass/volume)Ordered By: Vicky Morales on 01-30-2023 Creatinine [Mass/Vol] 1.01 mg/dL 0.55-1.02 [facility] Comment on above: The validity of the calculated GFR & GFRAA in patients over 70 years has not been determined. Clinical correlation is essential. Serum or plasma ferritin andrey surement (mass/volume)Ordered By: Vicky Morales on 01-30-2023 Ferritin [Mass/Vol] 56 ng/mL 8-252 [facility] Serum or plasma urea nitroge n measurement (mass/volume)Ordered By: Vicky Morales on 01-30-2023 Urea nitrogen [Mass/Vol] 14 mg/dL 7-18 [facility] Thin prep Papanicolaou smear with manual screeningOrdered By: Vicky Morales on 01-30-2023 Thin prep Papanicolaou smear with manual screening 15 U/L 15-37 [facility] Thin prep Papanicolaou smear with manual screening 8 5-15 [facility] CBC W Auto Differential pane l (Bld)on 06-21-2022 Erythrocyte distribution width (RBC) [Ratio] 12.0 % 11.5 - 15.0 % [facility] Hematocrit (Bld) [Volume fraction] 43.0 % 36.0 - 46.0 % [facility] Hemoglobin (Bld) [Mass/Vol] 14.9 g/dL 11.5 - 15.5 g/dL [facility] Immature granulocytes (Bld) [#/Vol] 0.03 10*3/uL <0.10 k/uL [facility] MCH (RBC) [Entitic mass] 29.0 pg 26.0 - 34.0 pg [facility] MCHC (RBC) [Mass/Vol] 34.7 g/dL 30.5 - 36.0 g/dL [facility] MCV (RBC) [Entitic vol] 83.7 fL 80.0 - 100.0 fL [facility] Neutrophils (Bld) [#/Vol] 4.92 10*3/uL 1.45 - 7.50 k/uL [facility] Nucleated RBC (Bld) [#/Vol] <0.01 k/uL [facility] Platelet mean volume (Bld) [Entitic vol] 8.8 fL Low 9.0 - 12.7 fL [facility] Platelets (Bld) [#/Vol] 330 10*3/uL 150 - 400 k/uL [facility] RBC (Bld) [#/Vol] 5.14 10*6/uL 3.90 - 5.2 0 m/uL [facility] WBC (Bld) [#/Vol] 9.33 10*3/uL 3.70 - 11.00 k/uL [facility] Comprehensive metabolic 2000 panelon 06-21-2022 Albumin [Mass/Vol] 4.1 g/dL 3.9 - 4.9 g/dL [facility] ALP [Catalytic activity/Vol] 102 U/L 34 - 123 U/L [facility] ALT [Catalytic activity/Vol] 20 U/L 7 - 38 U/L [facility] Anion gap [Moles/Vol] 8 mmol/L Low 9 - 18 mmol/L [facility] AST [Catalytic activity/Vol] 18 U/L 13 - 35 U/L [facility] Bilirubin [Mass/Vol] 0.3 mg/dL 0.2 - 1 .3 mg/dL [facility] Calcium [Mass/Vol] 9.8 mg/dL 8.5 - 10. 2 mg/dL [facility] Chloride [Moles/Vol] 105 mmol/L 97 - 10 5 mmol/L [facility] CO2 [Moles/Vol] 28 mmol/L 22 - 30 mmol/L [facility] Creatinine [Mass/Vol] 0.83 mg/dL 0.58 - 0.96 mg/dL [facility] Estimated Glomerular Filtration Rate 94 mL/min/1.73m >=60 mL/min/1.73 m [facility] Glucose [Mass/Vol] 91 mg/dL 74 - 99 mg/dL [facility] Potassium [Moles/Vol] 4.4 mmol/L 3.7 - 5.1 mmol/L [facility] Protein [Mass/Vol] 7.3 g/dL 6.3 - 8.0 g/dL [facility] Sodium [Moles/Vol] 141 mmol/L 136 - 144 mmol/L [facility] Urea nitrogen [Mass/Vol] 10 mg/dL 7 - 21 mg/dL [facility] Office Visit: recheck chest wass masseson 03-31-2017 Dietary management education, guidance, and counseling (procedure) yes Invalid Interpretation Code [facility] Work Phone: Documentation of current medications (procedure) Done Invalid Interpretation Code [facility] Work Phone: Tobacco smoking status NHIS Never Invalid Interpretation Code [facility] Work Phone: Tobacco use [facility] Never smoker Invalid Interpretation Code [facility] Work Phone: .Urinalysis Microscopic (AO) on 03-26-2017 UA Squam Epithelial None Seen Normal None Seen [facility] ([place]) Comment on above: Performed By: #### U A, UAMICAO, PREGU ####[address] [place], [place] [address] UA WBC None Seen Normal None Seen [facility] ([place]) Comment on above: Performed By: #### U LUIS Sharma PREGU ####[id number] [place], [place] [address] Urine, erythrocytes None Seen Normal None Seen [facility] ([place] Comment on above: Performed By: #### U A, LUIS, PREGU ####[address] [place], [place] [address] CT ABDOMEN/PELVIS W/O CONTRA STon 03-26-2017 CT [...] AM Sign Date: 03/26/2017 12:19:31 AM Normal [facility] ([place]) [place] [facility] Note on 03-26-2017 [facility] Note Normal [facility] ([place] PREGUon 03-26-2017 HCG ( test) Ql (U) Negative Normal [facility] ([place] Comment on above: Performed By: #### U A, UAMICAO, PREGU ####[address] [place] [address] test (u) int HCG not detected. Invalid Interpretation Code [facility] ([place]) Comment on above: Performed By: #### U A, UAMICAO, PREGU ####[address] [place] [address] Patient Summary Documentson 03-26-2017 Patient Summary Documents Normal [facility] ([place]) UAon 03-26-2017 UA Appear CLEAR Normal [facility] ([place] Comment on above: Performed By: #### U A, UAMICAO, PREGU ####[address] [place] [address] UA Blood Negative [facility] ([place]) Comment on above: Performed By: #### U A, UAMICAO, PREGU ####[address] [place] [address] UA Leuk Est Negative [facility] ([place]) Comment on above: Performed By: #### U A, UAMICAO, PREGU ####[address] [place] [address] UA Nitrite Negative [facility] ([place] Comment on above: Performed By: #### U A, UAMICAO, PREGU ####[address] [place] [address] UA pH 6.0 [facility] ([place] Comment on above: Performed By: #### U A, UAMICAO, PREGU ####[address] [place] [address] UA Protein Negative [facility] ([place]) Comment on above: Performed By: #### U A, UAMICAO, PREGU ####[address] [place], [place] [address] UA Spec Grav 1.025 Normal [facility] ([place]) Comment on above: Performed By: #### U A, UAMICAO, PREGU ####[address] [place], [place] [address] UA Specimen Type Clean Catch Normal [facility] ([place]) Comment on above: Performed By: #### U A, UAMICAO, PREGU ####[address] [place], [place] [address] UA Urobilinogen 1.0 E.U./dL [facility] ([place]) Comment on above: Performed By: #### U A, UAMICAO, PREGU ####[address] [place], [place] [address] Urine, color YELLOW Normal [facility] ([place]) Comment on above: Performed By: #### U A, UAMICAO, PREGU ####[address] [place], [place] [address] Urine, glucose Negative Normal [facility] ([place]) Comment on above: Performed By: #### U A, UAMICAO, PREGU ####[address] [place], [place] [address] Urine, ketones presence TRACE Normal A [facility] ([place]) Comment on above: Performed By: #### U A, UAMICAO, PREGU ####[address] [place], [place] [address] Urine, urobilinogen Negative Normal [facility] ([place]) Comment on above: Performed By: #### U A, UAMICAO, PREGU ####[address] [place], [place] [address] Office Visit: Right breast m ass hx of BRCA, right breast canceron 03-09-2017 Fall risk assessment No Invalid Interpretation Code [facility] Work Phone: Protein mass conc Done [facility] Work Phone: Tobacco smoking status NHIS Never [facility] Work Phone: Tobacco smoking status NHIS Never smoker [facility] Work Phone: Office Visiton 01-25-2017 Documentation of current medications (procedure) Done Invalid Interpretation Code [facility] Work Phone: Protein mass conc Done [facility] Work Phone: Tobacco smoking status NHIS Never [facility] Work Phone: Tobacco smoking status NHIS Never smoker [facility] Work Phone: Tobacco use [facility] Never smoker Invalid Interpretation Code [facility] Work Phone: Office Visit: Right breast m ass hx of BRCA, right breast canceron 04-29-2015 MG Breast screening Abnormal Bilateral Invalid Interpretation Code [facility] Work Phone: Vital Signs Date Time Vital Sign Value Performing Clinician Facility 03-07-2025 13:55-0400 Diastolic blood pressure 89 mm[Hg] Dr. Rachelle Esparza MD Work Phone: [facility] 03-07-2025 13:55-0400 Heart rate 106 /min Dr. Rachelle Esparza MD Work Phone: [facility] 03-07-2025 13:55-0400 Respiratory rate 18 /min Dr. Rachelle Esparza MD Work Phone: [facility] 03-07-2025 13:55-0400 SaO2% (BldA) [Mass fraction] 96 % Dr. Rachelle Esparza MD Work Phone: [facility] 03-07-2025 13:55-0400 Systolic blood pressure 128 mm[Hg] Dr. Rachelle Esparza MD Work Phone: [facility] 02-07-2025 14:16-0400 Diastolic blood pressure 93 mm[Hg] Dr. Rachelle Esparza MD Work Phone: [facility] 02-07-2025 14:16-0400 Heart rate 81 /min Dr. Rachelle Esparza MD Work Phone: 1([phone])[phone] [place] [address] 02-07-2025 14:16-0400 Respiratory rate 18 /min Dr. Rachelle Esparza MD Work Phone: 3(187)738-441614 [place] [address] 02-07-2025 14:16-0400 SaO2% (BldA) [Mass fraction] 98 % Dr. Rachelle Esparza MD Work Phone: 2(423)627-565614 [place] [address] 02-07-2025 14:16-0400 Systolic blood pressure 129 mm[Hg] Dr. Rachelle Esparza MD Work Phone: 3(876)676-377814 [place] [address] 01-08-2025 15:50-0400 Body height 160.[address] Rachelle Esparza MD Work Phone: 3(121)679-956214 [place] [address] 12-20-2024 00:38-0400 Body temperature 98 [degF] Dr. Rachelle Esparza MD Work Phone: 6(810)090-471614 [place] [address] 12-20-2024 00:38-0400 Diastolic blood pressure 100 mm[Hg] Dr. Rachelle Esparza MD Work Phone: 7(999)797-718814 [place] [address] 12-20-2024 00:38-0400 Heart rate 80 /min Dr. Rachelle Esparza MD Work Phone: 4(113)273-940414 [place] [address] 12-20-2024 00:38-0400 Respiratory rate 18 /min Dr. Rachelle Esparza MD Work Phone: 3(808)040-523914 [place] [address] 12-20-2024 00:38-0400 SaO2% (BldA) [Mass fraction] 97 % Dr. Rachelle Esparza MD Work Phone: 2(470)904-129014 [place] [address] 12-20-2024 00:38-0400 Systolic blood pressure 144 mm[Hg] Dr. Rachelle Esparza MD Work Phone: 0(531)327-840414 [place] [address] 12-19-2024 20:43-0400 Body mass index (BMI) [Ratio] 41.4 kg/m2 Dr. Rachelle Esparza MD Work Phone: 1(359)774-388014 [place] [address] 12-19-2024 20:43-0400 Body weight 106.[address] Rachelle Esparza MD Work Phone: [facility] 11-26-2024 16:06-0400 Body height 161.9 cm Ross Geniei DO Work Phone: [facility] 11-26-2024 16:06-0400 Body mass index (BMI) [Ratio] 40.48 kg/m2 Ross Masci DO Work Phone: [facility] 11-26-2024 16:06-0400 Body temperature 98.8 [degF] Ross Masci DO Work Phone: [facility] 11-26-2024 16:06-0400 Body weight 106.14 kg Ross Masci DO Work Phone: [facility] 11-26-2024 16:06-0400 Diastolic blood pressure 89 mm[Hg] Ross Masci DO Work Phone: [facility] 11-26-2024 16:06-0400 Heart rate 81 /min Ross Masci DO Work Phone: [facility] 11-26-2024 16:06-0400 SaO2% (BldA) [Mass fraction] 99 % Ross Masci DO Work Phone: [facility] 11-26-2024 16:06-0400 Systolic blood pressure 148 mm[Hg] Ross Masci DO Work Phone: [facility] 06-19-2024 16:59-0400 Body mass index (BMI) [Ratio] 39.43 kg/m2 Krislyn Aberegg PA Work Phone: [facility] 06-19-2024 16:59-0400 Body temperature 98.71 [degF] Krislyn Aberegg PA Work Phone: [facility] 06-19-2024 16:59-0400 Body weight 106.7 kg Krislyn Aberegg PA Work Phone: [facility] 06-19-2024 16:59-0400 Diastolic blood pressure 82 mm[Hg] Krislyn Aberegg PA Work Phone: [facility] 06-19-2024 16:59-0400 Heart rate 96 /min Krislyn Aberegg PA Work Phone: [facility] 06-19-2024 16:59-0400 Respiratory rate 16 /min Krislyn Aberegg PA Work Phone: [facility] 06-19-2024 16:59-0400 SaO2% (BldA) [Mass fraction] 98 % Krislyn Aberegg PA Work Phone: [facility] 06-19-2024 16:59-0400 Systolic blood pressure 128 mm[Hg] Krislyn Aberegg PA Work Phone: [facility] 11-03-2023 14:28-0400 Body height 160.02 cm DO Vicky Carmen Work Phone: [facility] 11-03-2023 14:28-0400 Body mass index (BMI) [Ratio] 38.9 kg/m2 DO Vicky Carmen Work Phone: [facility] 11-03-2023 14:28-0400 Body temperature 98.6 [degF] DO Vicky Carmen Work Phone: [facility] 11-03-2023 14:28-0400 Body weight 99.79 kg DO Vicky Carmen Work Phone: [facility] 11-03-2023 14:28-0400 Diastolic blood pressure 86 mm[Hg] DO Vicky Carmen Work Phone: [facility] 11-03-2023 14:28-0400 Heart rate 83 /min DO Vicky Carmen Work Phone: [facility] 11-03-2023 14:28-0400 Respiratory rate 16 /min DO Vicky Carmen Work Phone: [facility] 11-03-2023 14:28-0400 SaO2% (BldA) [Mass fraction] 99 % DO Vicky Carmen Work Phone: [facility] 11-03-2023 14:28-0400 Systolic blood pressure 124 mm[Hg] DO Vicky Morales Work Phone: [facility] 12-30-2022 07:59-0400 Body height 160.02 cm DO Vicky Morales Work Phone: [facility] 12-30-2022 07:59-0400 Body mass index (BMI) [Ratio] 39.6 kg/m2 DO Vicky Morales Work Phone: [facility] 12-30-2022 07:59-0400 Body weight 101.6 kg DO Vicky Morlaes Work Phone: [facility] 12-25-2022 22:06-0400 Diastolic blood pressure 94 mm[Hg] [facility] 12-25-2022 22:06-0400 Systolic blood pressure 139 mm[Hg] [facility] 12-25-2022 20:25-0400 Body height 160.02 cm [facility] 12-25-2022 20:25-0400 Body mass index (BMI) [Ratio] 40.6 kg/m2 [facility] 12-25-2022 20:25-0400 Body temperature 97.4 [degF] [facility] 12-25-2022 20:25-0400 Body weight 104.09 kg [facility] 12-25-2022 20:25-0400 Heart rate 89 /min [facility] 12-25-2022 20:25-0400 Respiratory rate 16 /min [facility] 12-25-2022 20:25-0400 SaO2% (BldA) [Mass fraction] 99 % [facility] 06-21-2022 09:52-0400 Body height 164.5 cm Arpita Roca MD Work Phone: [facility] 06-21-2022 09:52-0400 Body temperature 98.29 [degF] Arpita Roca MD Work Phone: [facility] 06-21-2022 09:52-0400 Body weight 130.77 kg Arpita Roca MD Work Phone: [facility] 06-21-2022 09:52-0400 Diastolic blood pressure 98 mm[Hg] Arpita Roca MD Work Phone: [facility] 06-21-2022 09:52-0400 Heart rate 89 /min Arpita Roca MD Work Phone: [facility] 06-21-2022 09:52-0400 Respiratory rate 20 /min Arpita Roca MD Work Phone: [facility] 06-21-2022 09:52-0400 SaO2% (BldA) [Mass fraction] 98 % Arpita Roca MD Work Phone: [facility] 06-21-2022 09:52-0400 Systolic blood pressure 149 mm[Hg] Arpita Roca MD Work Phone: [facility] 04-09-2022 16:20-0400 Body height 160.02 cm [facility] Work Phone: 04-09-2022 16:20-0400 Body mass index (BMI) [Ratio] 51.5 kg/m2 [facility] Work Phone: 04-09-2022 16:20-0400 Body temperature 96.8 [degF] [facility] Work Phone: 04-09-2022 16:20-0400 Body weight 132.1 kg [facility] Work Phone: 04-09-2022 16:20-0400 Diastolic blood pressure 104 mm[Hg] [facility] Work Phone: 04-09-2022 16:20-0400 Heart rate 81 /min [facility] Work Phone: 04-09-2022 16:20-0400 Respiratory rate 16 /min [facility] Work Phone: 04-09-2022 16:20-0400 SaO2% (BldA) [Mass fraction] 97 % [facility] Work Phone: 04-09-2022 16:20-0400 Systolic blood pressure 154 mm[Hg] [facility] Work Phone: 01-11-2022 16:22-0400 Body height 160 cm CARMENZA GARIBAY DO [facility] 01-11-2022 16:22-0400 Body temperature 97.52 [degF] CARMNEZA GARIBAY DO [facility] 01-11-2022 16:22-0400 Body weight 109.1 kg CARMENZA GARIBAY DO [facility] 01-11-2022 16:22-0400 Diastolic blood pressure 66 mm[Hg] CARMENZA GARIBAY DO [facility] 01-11-2022 16:22-0400 Heart rate 77 /min CARMENZA GARIBAY DO [facility] 01-11-2022 16:22-0400 Respiratory rate 20 /min CARMENZA GARIBAY DO [facility] 01-11-2022 16:22-0400 Systolic blood pressure 139 mm[Hg] CARMENZA GARIBAY DO [facility] 03-31-2017 09:57-0400 BMI (Body Mass Index) 44.81 kg/m2 Monika Partida MD [facility] Work Phone: 03-31-2017 09:57-0400 Height 160.02 cm Monika Partida MD [facility] Work Phone: 03-31-2017 09:57-0400 Respiratory Rate 16 /min Monika Partida MD [facility] Work Phone: 03-31-2017 09:57-0400 Weight 114.76 kg Monika Partida MD [facility] Work Phone: 03-09-2017 10:54-0400 BMI (Body Mass Index) 44.99 kg/m2 Monika Partida MD [facility] Work Phone: 03-09-2017 10:54-0400 Body Temperature 97.9 [degF] Monika Partida MD [facility] Work Phone: 03-09-2017 10:54-0400 Height 160.02 cm Monika Partida MD [facility] Work Phone: 03-09-2017 10:54-0400 Pulse (Heart Rate) 80 /min Monika Partida MD [facility] Work Phone: 03-09-2017 10:54-0400 Respiratory Rate 18 /min Monika Partida MD [facility] Work Phone: 03-09-2017 10:54-0400 Weight 115.21 kg Monika Partida MD [facility] Work Phone: 01-25-2017 14:55-0400 BMI (Body Mass Index) 40.74 kg/m2 [facility] Work Phone: 01-25-2017 14:55-0400 Height 160.02 cm [facility] Work Phone: 01-25-2017 14:55-0400 Weight 104.33 kg [facility] Work Phone: Encounters Encounter Date Encounter Type Care Provider Facility Start: 03-07-2025 End: 03-07-[address] Elliot Stiles MD [facility] Work Phone: Start: 03-07-2025 End: 03-07-[address] Rachelle Esparza MD Work Phone: [facility] Start: 03-05-2025 End: 03-10-2025 Telephone encounter Ross Marion DO Work Phone: Hematology/Oncology Start: 02-26-2025 ambulatory Elliot Stiles Facility:[facility] Start: 02-13-2025 End: 02-13-[address] Rachelle Esparza MD Work Phone: [facility] Start: 02-13-2025 End: 02-13-[address] Elliot Stiles MD [facility] Work Phone: Start: 02-13-2025 End: 02-13-2025 ambulatory [facility] Facility:[facility] Start: 02-07-2025 End: 02-07-[address] Elliot Stiles MD [facility] Work Phone: Start: 02-07-2025 End: 02-07-[address] Rachelle Esparza MD Work Phone: [facility] Work Phone: Start: 02-06-2025 ambulatory ROSS MARION Facility:[facility] Start: 02-06-2025 End: 02-06-2025 Subsequent hospital visit by physician [facility] Radiology Comment on above: Malignant neoplasm o f upper-outer quadrant of right breast in female, estrogen receptor positive (HCC) [C50.411, Z17.0] Start: 01-23-2025 End: 01-23-[address] Elliot Stiles MD [facility] Work Phone: Start: 01-23-2025 End: 01-23-[address] Rachelle Esparza MD Work Phone: [facility] Work Phone: Start: 01-21-2025 End: 02-12-2025 Telephone encounter Ross Marion DO Work Phone: Hematology/Oncology Comment on above: Appointment; Patient Question Start: 12-19-2024 End: 12-20-2024 Emergency department patient visit Dr. Jaime Klusty-Silva DO -Emergency Department Work Phone: Start: 12-06-2024 ambulatory ROSS MARION Facility:[facility] Start: 12-06-2024 End: 12-06-2024 Subsequent hospital visit by physician [facility] Work Phone: Nuclear Medicine Comment on above: Malignant neoplasm o f upper-outer quadrant of right breast in female, estrogen receptor positive (HCC) [C50.411, Z17.0] Start: 12-06-2024 ambulatory ROSS MARION Facility:[facility] Start: 12-06-2024 End: 12-06-2024 Subsequent hospital visit by physician In[facility] Work Phone: Nuclear Medicine Comment on [...] Emergency department patient visit Ed Physician Provider Facility:[facility] Start: 06-20-2024 End: 06-20-2024 Telephone encounter Rosa ROSARIO Work Phone: [facility] Comment on above: Medication Problem Start: 06-19-2024 End: 06-19-2024 Subsequent hospital visit by physician [facility]r [facility] Work Phone: Radiology Comment on above: Acute cough [R05.1] Start: 06-19-2024 End: 06-19-2024 ambulatory RACHELLE ESPARZA Facility:[facility] Start: 06-19-2024 End: 06-19-2024 Patient encounter procedure Rosa ROSARIO Work Phone: [facility] Comment on above: Acute cough (Primary Dx) Start: 06-19-2024 End: 06-19-2024 Telephone encounter Teri Delores CABRERA Work Phone: [facility] Comment on above: Results Start: 11-03-2023 End: 11-03-2023 ambulatory DO Vicky Morales Work Phone: [facility] Work Phone: Start: 11-03-2023 End: 11-03-2023 Patient encounter procedure DO Vicky Morales [facility] Work Phone: Start: 11-03-2023 End: 11-03-2023 Patient encounter procedure DO Vicky Carmen Work Phone: [facility] Work Phone: Start: 01-30-2023 End: 01-30-2023 ambulatory DO Vicky Morales Work Phone: [facility] Work Phone: Start: 01-30-2023 End: 01-30-2023 Patient encounter procedure DO Vickyrichi Obriennger Work Phone: [facility] Start: 12-30-2022 End: 12-30-2022 Patient encounter procedure DO Vicky Morales Work Phone: [facility] Start: 12-25-2022 End: 12-25-2022 Emergency department patient visit [facility] Start: 11-28-2022 ambulatory Poornima styles MD Work Phone: Psychiatry Comment on above: No Show Start: 08-16-2022 ambulatory Poornima stylse MD Work Phone: Psychiatry Comment on above: No Show Start: 06-21-2022 End: 06-21-2022 ambulatory Arpita Roca MD Work Phone: Hematology/Oncology Comment on above: Acute right-sided lo w back pain with sciatica, sciatica laterality unspecified (Primary Dx); History of right breast cancer Start: 06-21-2022 End: 06-21-2022 Patient encounter procedure Arpita Roca MD Work Phone: [facility] Start: 04-09-2022 End: 04-09-2022 Emergency department patient visit [facility] Start: 01-11-2022 End: 01-11-2022 Emergency department patient visit CARMENZA Zuniga [place] DO [facility] Start: 03-26-2017 End: 03-26-2017 Emergency department patient [...] Detail Author Start: 03-04-2028 Urine microalbumin profile [facility] Start: 04-21-2025 Influenza vaccination Influenza Vacc ine (#1) [facility] Start: 02-10-2025 End: 02-10-2025 ambulatory 02/10/2025 11:30 AM EDT Visit (SP) Office Hematology/Oncology [address] [facility], [place] [address] Ross Marion, DO [address] [facility] [place], [place] [id number] OV/CT 02/06* Hematology/Oncology Comment on above: OV/CT 02/06* Start: 01-06-2025 End: 01-06-2025 ambulatory 01/06/2025 3:50 PM EDT Visit (SP) Office Hematology/Oncology [address] [place] [address] Ross Marion, DO [address] [facility] [place] [address] OV/CT & NM SCAN 12/06 CT 01/02* Hematology/Oncology Comment on above: OV/CT & NM SCAN 12/06 CT 01/02* Start: 01-02-2025 End: 01-02-2025 Patient encounter procedure Radiology Comment on above: Dx: Malignant neopla sm of upper-outer quadrant of right breast in female, estrogen receptor positive (HCC) [C50.411, Z17.0] Start: 12-20-2024 [facility] Start: 12-19-2024 [facility] Start: 12-11-2024 End: 12-11-2024 ambulatory 12/11/2024 8:50 AM EDT Visit (SP) Office Hematology/Oncology [address] [place] [id number] Ross Marion DO [address] [place] [address] OV/CT & NM SCAN 12/06* Hematology/Oncology Comment on above: OV/CT & NM SCAN 12/06 * Start: 12-06-2024 End: 12-06-2024 Patient encounter procedure 12/06/2024 3:30 PM EDT Appointment Nuclear Medicine [address] [place], [place] [id number] Dx: Malignant neoplasm of upper-outer quadrant of [...] Start: 11-03-2023 Anaerobic microbial culture Anaerobic Culture [facility] Start: 11-03-2023 Procedure [facility] Start: 11-03-2023 Source specific culture [facility] Start: 04-21-2023 Influenza vaccination INFLUENZ A (Season Ended) [facility] Start: 12-25-2022 Open tx distal phalangeal fracture each TREAT FINGER FRACTURE EACH [facility] Start: 08-21-2022 DEPRESSION ASSESSMENT DEPRESSION ASS ESSMENT [facility] Start: 04-21-2022 Influenza vaccination INFLUENZA (#1) [facility] Start: 10-28-2021 COVID-19 VACCINE (4 - Booster for Pfizer series) COVID-19 VACCINE (4 - Booster for Pfizer series) [facility] Start: 08-21-2021 DEPRESSION ASSESSMENT DEPRESSION ASS ESSMENT [facility] Start: 03-31-2017 End: 03-31-2017 Appointment Appointment [facility] Work Phone: Start: 03-31-2017 End: 03-31-2017 Follow Up Appt Other Follow Up Appt Other [facility] Work Phone: Start: 03-09-2017 End: 03-09-2017 Bilirubin (total) MRI Breast bilateral without and/or with contrast material(s) [facility] Work Phone: Start: 03-09-2017 End: 03-09-2017 Mammogram, both breasts Mammogram, Diagnostic, both breasts [facility] Work Phone: Start: 03-09-2017 End: 03-09-2017 Mri breast bilateral MRI Breast bilateral without and/or with contrast material(s) [facility] Work Phone: Start: 03-09-2017 End: 03-09-2017 Oncology Referral Oncology Referral Ross Marion, [facility] [place], [address] [place] [address]., [place], [address] [facility] Work Phone: Start: 03-09-2017 End: 03-09-2017 Us exam, breast(s) US Breast(s) [facility] Work Phone: Start: 02-17-2017 End: 02-17-2017 Appointment Appointment [facility] Work Phone: Start: 01-25-2017 End: 01-25-2017 Appointment Appointment [facility] Work Phone: Start: 01-25-2017 End: 06-07-2017 Mri joint upr extrem w/o dye MRI Joint Upper Extremity [facility] Work Phone: Start: 01-25-2017 End: 01-25-2017 X-ray exam of [facility] Work Phone: Start: 2015 HPV TESTING HPV TESTING [facility] Start: 2006 PAP TESTING PAP TESTING [facility] Start: 2006 Screening for malign ant neoplasm of cervix Cervical Cancer Screening [facility] Start: 2004 Hepatitis B Vaccine (1 of 3 - 19+ 3-dose series) Hepatitis B Vaccine (1 of 3 - 19+ 3-dose series) [facility] Start: 2003 Anxiety Screening Anxiety Screening [facility] Start: 2003 Depression Screening Depression Scre ening [facility] Start: 2003 HEPATITIS C SCREENING HEPATITIS C [facility] Start: 2003 Hepatitis C screening Hepatitis C [facility] Start: 2003 HIV SCREENING HIV SCREENING [facility] Start: 2003 HIV screening HIV Screening [facility] Start: 1985 HEPATITIS B (1 of 3 - 3-dose series) HEPATITIS B (1 of 3 - 3-dose series) [facility] End: 07-21-2023 Bone &/joint imaging whole body NM BONE WHOLE BODY Radiology Routine Acute right-sided low back pain with sciatica, sciatica laterality unspecified 1 Occurrences starting 06/21/2022 until 07/21/2023 [facility] Work Phone: Comment on above: 1 Occurrences starti ng 06/21/2022 until 07/21/2023 End: 12-26-2025 CT Abdomen and Pelvis W contrast IV CT ABD/PEL W IVCON Radiology Routine Malignant neoplasm of upper-outer quadrant of right breast in female, estrogen receptor positive (HCC) 1 Occurrences starting 11/26/2024 until 12/26/2025 [facility] Work Phone: Comment on above: 1 Occurrences starti ng 11/26/2024 until 12/26/2025 End: 12-26-2025 CT Chest W contrast IV CT CHEST W IVCON Radiology Routine Malignant neoplasm of upper-outer quadrant of right breast in female, estrogen receptor positive (HCC) 1 Occurrences starting 11/26/2024 until 12/26/2025 [facility] Comment on above: 1 Occurrences starti ng 11/26/2024 until 12/26/2025 End: 12-26-2025 NM Whole body Bone Views NM BONE WHOLE BODY Radiology Routine Malignant neoplasm of upper-outer quadrant of right breast in female, estrogen receptor positive (HCC) 1 Occurrences starting 11/26/2024 until 12/26/2025 [facility] Comment on above: 1 Occurrences starti ng 11/26/2024 until 12/26/2025 Patient Education [facility] Work Phone: Patient referral [facility] Work Phone: Procedure [facility] Immunizations Immunization Date Immunization Notes Care Provider [facility] 06-04-2024 influenza virus vaccine, unspecified formulation Ross Marion DO Work Phone: [facility] 04-11-2021 Covid (Pfizer) [facility] 03-21-2021 Covid (Pfizer) [facility] 06-19-2020 influenza, injectable,quadrivalent , preservative free, pediatric [facility] 03-04-2018 tetanus toxoid, redu sandra diphtheria toxoid, and acellular pertussis vaccine, adsorbed Arpita Roca MD Work Phone: [facility] Payers Date Payer Category Payer Self-pay [id number] 2024 Self-pay [id number] 2023 Unknown MMO MMO [employer] PPO [id number] 2023-Present [phone] [address] [place] [address] PPO [id number] 2023 Unknown [id number] 2018 Private Health Insurance [id number] 2018 Private Health Insurance [id number] 2017 [facility] [id number] 2017 Unknown [facility] [employer] [id number] Private Health Insurance [id number] Unknown [id number] Unknown [id number] 62 Unknown [id number] 62 Unknown [id number] 62 Unknown [id number] 62 Unknown [id number] 62 Unknown [id number] 62 Unknown [id number] 62 Social History Date Type Detail Facility Start: 01-11-2022 End: 06-19-2024 Tobacco smoking status Never smoked tobacco (finding) [facility] Sex Assigned At Sex [facility] Start: 04-09-2022 End: 11-03-2023 Tobacco smoking status NHIS Unknown if ever smoked [facility] Start: 12-13-2020 None [facility] Start: 12-13-2020 Spouse/ Signif icant Other [facility] Start: 01-06-2020 Non-smoker [facility] Start: 1985 Sex Assigned At Female [facility] Start: 03-23-2017 End: 06-19-2024 Tobacco use and exposure Smokeless tobacco non-user [facility] Start: 10-27-2020 End: 11-26-2024 Alcohol intake Current drinker of alcohol (finding) [facility] Start: 03-23-2017 Alcohol [facility] Start: 1985 Sex Assigned At Not on file [facility] Start: 06-11-2022 End: 06-21-2022 Exposure to SARS-CoV-2 (event) Not sure [facility] Start: 06-19-2024 End: 12-06-2024 History of Social function [facility] Start: 06-19-2024 End: 12-06-2024 Tobacco use panel [facility] National Score (1-100), lower number is lower risk Not on file [facility] NEGATED: Highlighted row [facility] Medical Equipment Procedure Code Equipment Code Equipment [...] Facility 01-11-2022 Functional Status Independent [facility] 01-11-2022 Functional Status Resting [facility] Mental Status Date Assessment Result Facility 12-19-2024 Cognitive function Level Of Cons ciousness Awake;Alert;Appropriate;Follo ws Commands [facility] Work Phone: 01-11-2022 Mental Status Orientation Oriented x 4 [facility] 01-11-2022 [facility] Clinical Notes 01-11-2022 to 03-10-2025 Telephone Encounter [...] for a recommendation to someone closer to [place]. If she is unsuccessful, she will contact this office to be scheduled through [facility]. Patient verbalized understanding. Larissa Tang LPN [facility] 03-10-2025 Miscellaneous Notes Formattin g of this [...] for a recommendation to someone closer to [place]. If she is unsuccessful, she will contact this office to be scheduled through [facility]. Patient verbalized understanding. Larissa Tang LPN Spoke w pt to schedule consult to [facility] med which require the pt to [...] today. Please advise. documented in this encounter [facility] 03-10-2025 Telephone encount er Note Spoke w pt to schedule consult to [facility] which require the pt to call and schedule, pt was given the number to call and schedule at [facility] [place] as closer locations are booked out further than she would like. Also she would like a nurse to call her as she is wondering why Dr Marion can't clear her. Tatianna Mendoza [facility] 03-10-2025 Telephone encount er Note PSS- please contact patient to schedule with vascular MEDICINE for pre-op clearance. Larissa Tang LPN [facility] 03-10-2025 Telephone encount er Note Thank you. Order filed. Ross Marion DO [facility] 03-10-2025 Telephone encount er Note Patient returned call. Larissa, were we looking at moving patients to fit patient in or next avail? Informed patient we would contact her to schedule [facility] Work Phone: 03-05-2025 Telephone encount er Note [...] after Dr. Marion's return. Larissa Tang LPN [facility] 03-05-2025 Telephone encount er Note Patient called [...] surgery will be canceled today. Please advise. [facility] 02-14-2025 Radiology Diagnostic study note [facility] Imaging Services [address] [place] [address] Breast Limited Unilateral MR#: [id number] Acct: [id number] Name: MARGO VALERO Rep #: [id number] : 1985 F 39 From: Jamison Moore MD PCP: Dr. Mallory Robertson MD Status: REG CL I Study:Breast Limited Unilateral Date of Exam: 02/13/25 Exam# [id number] Ordering Dr: Jenny Stiles MD PROCEDURE: BREAST [...] MRI Recommended BI-RADS category 0 Reading Location: [id number] CC: Dr. Mallory Robertson MD; Dr. Elliot Stiles MD ~ Varnish Remover: Signed [facility] 02-14-2025 Radiology Diagnostic study note [facility] Imaging Services [address] [place] [address] Breast Limited Unilateral MR#: [id number] Acct: [id number] Name: MARGO VALERO Rep #: [id number] : 1985 F 39 From: Jamison Moore MD PCP: Dr. Mallory Robertson MD Status: REG CL I Study:Breast Limited Unilateral Date of Exam: 02/13/25 Exam# [id number] Ordering Dr: Jenny Stiles MD PROCEDURE: BREAST [...] - NEED ADDITIONAL IMAGING EVALUATION. Reading Location: [id number] CC: Dr. Mallory Robertson MD; Dr. Elliot Stiles MD ~ Varnish Remover: Signed [facility] 02-12-2025 Telephone encount er Note Spoke with pt, she informed she would like to do her annual follow ups with DR. Marion. Instructed to contact office in August for Follow up in November of 2025. Pt. Voiced understanding . Luisa Lopez LPN [facility] 02-12-2025 Miscellaneous Notes Formattin g of this [...] to call back and reschedule CT at [facility]. Tatianna Mendoza PSS- please see phone note from 12/05/2024. Patient needs CT's scheduled at [facility] d/t iodine listed as an allergy with hives/swelling. Please contact her to schedule at [place]. Dr. Marion sent in a prednisone prep. Patient is aware of all instructions regarding prep. Larissa Tang LPN documented in this encounter [facility] 02-11-2025 Telephone encount er Note Message left on identified voicemail to check her my chart for Dr. Marion notation concerning recent CT scan results. Luisa Lopez LPN [facility] 02-11-2025 Telephone encount er Note Scans indicated no evidence of metastatic disease. Does not need follow-up office visit at this time. I would encourage her to continue annual follow-up with Dr. Roca whom she last saw in June 2022. Ross Marion DO [facility] 02-10-2025 Telephone encount er Note Patient was scheduled to see this morning 02/10/25 @ 11:30 am and canceled. She stated that she had seen the results on her MyChart and she thinks everything looked good from what she could tell and is questioning if a rescheduled visit is necessary. Please advise. Lux Bucnh Pss [facility] 02-06-2025 History of Presen t illness Narrative [...] PATIENT PRESENTS WITH AN IMPLANTABLE OR ATTACHED INCIDENT COORDINATOR: No RADIOLOGY DEPARTMENT: CT; Exam(s) Completed: Chest Abdomen Pelvis PERIPHERAL IV DATA: Site assessment: Clean,Dry and Intact, Site disposition Discontinued SIGNED BY: TECHNOLOGIST Kalpesh February 06, 2025 10:41 AM documented in this encounter [facility] 02-06-2025 Note HNO ID: [id number] Author: KATHY GOLDSTEIN TECHNOLOGIST Service: Radiology Author [...] PATIENT PRESENTS WITH AN IMPLANTABLE OR ATTACHED INCIDENT COORDINATOR: No RADIOLOGY DEPARTMENT: CT; Exam(s) Completed: Chest Abdomen Pelvis PERIPHERAL IV DATA: Site assessment: Clean,Dry and Intact, Site disposition Discontinued SIGNED BY: Kathy Goldstein TECHNOLOGIST February 06, 2025 10:41 AM [facility] 02-06-2025 Nurse Note Radiology Service [...] DATE: February 06, 2025 TIME: 9:59 AM [facility] 02-06-2025 Nurse Note Radiology Service Progress Note [...] TIME: 9:59 AM documented in this encounter [facility] 01-23-2025 Evaluation note Diagnosis Onset Date Resolution Breast implant capsular contracture acute January 23, 2025 9:30am History of reconstruction of both breasts acute January 23, 2025 9:30am Malignant neoplasm of upper-outer quadrant of right breast, estrogen recept resolved January 23, 2025 9:30am [facility] Work Phone: 1(289) 895-694206-05-2025 Evaluation note* Diagnosis Onset Date Resolution Status [...] both breasts acute February 07, 2025 1:49pm [facility] Work Phone: 1(215) 240-537806-04-2025 Telephone encounter Note* Telephone Encounter - Tatianna Mendoza - 01/22/2025 9:01 AM EDT LVM for pt to call back and schedule FU w Dr Marion. Tatianna Mendoza [facility]06-04-2025 Telephone encounter Note* Telephone Encounter - Dixie Newton - 01/22/2025 8:51 AM EDT Patient rescheduled with PSS at Radio desk stating she was unable to call in to reschedule due to being in a meeting. She is rescheduled for 02/06. Patient needs to reschedule office visit with Dr. Marion at least one week after. Canceling 01/29 OV. Please reschedule OV with Dr. Marion [facility] Work Phone: 1(910) 228-815606-04-2025 Telephone encounter Note* Telephone Encounter - Dixie Newton - 01/22/2025 8:37 AM EDT Left second message this morning regarding CT. Sent Teams message to radio desk. Canceled CT so that patient cannot check in on kiosk. [facility]06-03-2025 Telephone encounter Note* Telephone Encounter - Tatianna Mendoza - 01/21/2025 10:16 AM EDT Lvm for pt to call back and reschedule CT at [facility]. Tatianna Mendoza [facility]06-03-2025 Telephone encounter Note* Telephone Encounter - Larissa Tang LPN - 01/21/2025 9:51 AM EDT PSS- please see phone note from 12/05/2024. Patient needs CT's scheduled at [facility] d/t iodine listed as an allergy with hives/swelling. Please contact her to schedule at [place]. Dr. Marion sent in a prednisone prep. Patient is aware of all instructions regarding prep. Larissa Tang LPN [facility]04-18-2025 Telephone encounter Note* Telephone Encounter - Neda Chandra - 12/06/2024 12:48 PM EDT Patient stopped and scheduled Neda Chandra [facility]04-18-2025 Miscellaneous Notes* Telephone Encounter - Neda Chandra [...] PSS- patient needs to be scheduled at [facility] for her CT C/A/P d/t iodine listed as an allergy with hives/swelling. Please contact her to schedule at [place]. Dr. Marion sent in a prednisone prep. Patient is aware of all instructions regarding prep. She will keep bone scan as scheduled. * Telephone Encounter - Larissa Tang LPN - 12/05/2024 12:26 PM EDT supply technician called. Patient is allergic to Iodine- hives/swelling. CT orders updated to WO IV or Oral contrast. Please file new orders. Larissa Tang LPN documented in this encounterParkview Health04-18-2025 History of Present illness Narrative* Rosalia Quinteros, [...] PATIENT PRESENTS WITH AN IMPLANTABLE OR ATTACHED INCIDENT COORDINATOR: n/a CREATININE: Creatinine Date Value Ref Range [...] 12:30 PATIENT DISCHARGED TO: Ambulatory patient, left [place] department area. Is this a therapy: No A Diagnostic radioactive procedure has taken place, with no further precautions necessary other than routine body substance precautions. More information regarding radiation safety can be found usingthis link: [email or web address] 20Diagnostic%20Nuclear%20Medicine%[email or web address] SIGNATURE: LOUIS Bowles) PATIENT NAME: Margo Valero DATE: December 06, 2024 TIME: 12:50 PM PAGER/CONTACT #: documented in this encounterParkview Health04-18-2025 NoteHNO ID: [id number] Author: ROSALIA QUINTEROS RT (R) Service: Nuclear [...] PATIENT PRESENTS WITH AN IMPLANTABLE OR ATTACHED INCIDENT COORDINATOR: n/a CREATININE: Creatinine Date Value Ref Range [...] 12:30 PATIENT DISCHARGED TO: Ambulatory patient, left [place] department area. Is this a therapy: No A Diagnostic radioactive procedure has taken place, with no further precautions necessary other than routine body substance precautions. More information regarding radiation safety can be found using this link: [email or web address] 20Diagnostic%20Nuclear%20Medicine%20Procedures.pdf SIGNATURE: RT Jelena(R) PATIENT NAME: Margo Valero DATE: December 06, 2024 TIME: 12:50 PM PAGER/CONTACT #:[facility]04-18-2025 Telephone encounter Note* Telephone Encounter - Neda Chandra - 12/06/2024 12:05 PM EDT Spoke with patient o schedule. She is currently at an appointment and will stop to schedule Neda Chandra [facility]04-17-2025 Telephone encounter Note* Telephone Encounter - Larissa Tang LPN - 12/05/2024 3:56 PM EDT PSS- patient needs to be scheduled at [facility] for her CT C/A/P d/t iodine listed as an allergy with hives/swelling. Please contact her to schedule at [place]. Dr. Marion sent in a prednisone prep. Patient is aware of all instructions regarding prep. She will keep bone scan as scheduled. [facility]04-17-2025 Telephone encounter Note* Telephone Encounter - Larissa Tang LPN - 12/05/2024 12:26 PM EDT supply technician called. Patient is allergic to Iodine- hives/swelling. CT orders updated to WO IV or Oral contrast. Please file new orders. Larissa Tang LPN [facility]04-13-2025 Telephone encounter Note* Telephone Encounter - Lux Escobar - 12/01/2024 9:25 AM EDT I called and confirmed the below appointment for 12/11/24 with Margo, sumeet stated understanding. Lux Bunch Pss [facility]04-13-2025 Miscellaneous Notes* Telephone Encounter - Lux Escobar [...] after completed Neda Chandra documented in this encounterParkview Health04-09-2025 Telephone encounter Note * Telephone Encounter - Neda Chandra - 11/27/2024 9:51 AM EDT Lvm to let patient know she is scheduled 12/11 for ov Neda Chandra [facility]04-09-2025 Telephone encounter Note* Telephone Encounter - Dixie Newton - 11/27/2024 8:[address] scans ( waiting to find out if here or [facility])-done NM bone scan-done F/U couple days after completed [facility] Work Phone: 1(888) 203-770504-08-2025 Telephone encounter Note* Telephone Encounter - Neda Chandra - 11/26/2024 5:01 PM EDT Scheduled both scans with patient Neda Lynchlins [facility]04-08-2025 Telephone encounter Note* Telephone Encounter - Neda Chandra - 11/26/2024 4:51 PM EDT Patient said once confirmed we can schedule 1st available and leave her a message with dates and times. Schedule both at the same time if possible. CT scans ( waiting to find out if here or [facility]) NM bone scan F/U couple days after completed Neda Chandra [facility]04-08-2025 NoteHNO ID: [id number] Author: ROSS MARION, DO Service: ? Author [...] 05/01/2015. 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 Genetic testing revealed that she was BRCA2 positive. She did not receive adjuvant radiation treatment evidently because of delayed healing from surgery which was attributed to chemotherapy. She had undergone hysterectomy and bilateral salpingo-oophorectomy several years previously and was therefore started on anastrozole after surgery. Had permanent implants placed. She was living in [place] but moved to [place] with her in 2016. She was seen [...] needle bx with path showing ER 99% MS 1% Her 2 1+ Fish non amp Ki 67 17% grade 3 IDC 06/03/[address] sampling with [address] (out of 8), excision bx of primary site with 3 foci of IDC - clinical stage cT2N1 Neodj ACT completed 09/17/15 10/24/2015 bilateral mastectomy (R therapeutic modified radical mastectomy with ALND and L prophylactic) with licensed staff mft - path stage ypT0N0 Germline testing BRCA 2 positive Did not receive adj RT due to delayed healing from surgery (attributed to chemo) BSO in 2011 (after pt found to be brca 2 pos, this germline testing predated cancer diagnosis, mom had brca2, aunt and grandmother brca 2), hysterectomy in 2015 Nodules of medial aspect of R breast skin [id number], reportedly evaluated with imaging and negative AI: exemestane November 2015 (more content not included)...[facility]04-08-2025 History of Present illness Narrative* Ross [...] 05/01/2015. 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 Genetic testing revealed that she was BRCA2 positive. She did not receive adjuvant radiation treatment evidently because of delayed healing from surgery which was attributed to chemotherapy. She had undergone hysterectomy and bilateral salpingo-oophorectomy several years previously and wastherefore started on anastrozole after surgery. Had permanent implants placed. She was living in [place] but moved to [place] with her in 2016. She was seen [...] needle bx with path showing ER 99% MS 1% Her 2 1+ Fish non amp Ki 67 17% grade 3 IDC 06/03/[address] sampling with [address] (out of 8), excision bx of primary site with 3 foci of IDC - clinical stage cT2N1 Neodj ACT completed 09/17/15 10/24/2015 bilateral mastectomy (R therapeutic modified radical mastectomy with ALND and L prophylactic) with licensed staff mft - path stage ypT0N0 Germline testing BRCA 2 positive Did not receive adj RT due to delayed healing from surgery (attributed to chemo) BSO in 2011 (after pt found to be brca 2 pos, this germline testing predated cancer diagnosis, mom had brca2, aunt and grandmother brca 2), hysterectomy in 2015 Nodules of medial aspect of R breast skin [id number], reportedly evaluated with imaging and negative AI: [...] years ago. Saw a plastic surgeon in [place]. Was advised needed to lose weight for [...] was discussed with the patient or authorized medical detail representative. The patient or authorized medical detail representative has agreed to proceed with the [...] encounter diagnosis) Assessment: -cT1c N1 M0 ER positive/MS weakly positive, HER2 non over-expressed invasive ductal [...] which included preparing to see the patient, [id number] patient care, completing clinical documentation, obtaining and/or reviewing separately obtained history, performing a medically appropriate examination, counseling and educating the pat ient/family/caregiver, ordering medications, tests, or procedures, communicating with other HCPs (not separately reported), and communicating results to the patient/family/caregiver. Ross Marion DO documented in this encounterParkview Health10-31-2024 Telephone encounter Note * Telephone Encounter - [...] 1 day. Authorizing Provider: KY CONTRERAS MA [facility]10-31-2024 Miscellaneous Notes* Telephone Encounter - Arlette Angulo [...] steroid and a cough suppressant to [facility] in [place]. Please call and advise Pt. I told her I saw that they would call in Doxycycline if x-ray showed pneumonia, and it did not. documented in this encounterParkview Health10-31-2024 Telephone encounter Note * Telephone Encounter - Ky Contreras MD - 06/20/2024 10:24 AM EDT Cough suppressant and steroid sent. [facility]10-31-2024 Telephone encounter Note* Telephone Encounter - Kaituska Garcia RN - 06/20/2024 8:56 AM EDT Pt called in and reports she was seen in [facility] on 06/19/24. She states the provider told her she wouldcall in a steroid and a cough suppressant to [facility] in [place]. Please call and advise Pt. I told her I saw that they would call in Doxycycline if x-ray showed pneumonia, and it did not. [facility]10-30-2024 Telephone encounter Note* Telephone Encounter - Teri Thornton APRN.CNP - 06/19/2024 7:59 PM EDT Xray reveals atelectasis. No pneumonia VM message left and mychart message sent [facility] Work Phone: 1(965) 535-537110-30-2024 Miscellaneous Notes* Telephone Encounter - Teri Thornton APRN.CNP - 06/19/2024 7:59 PM EDT Xray reveals atelectasis. No pneumonia VM message left and mychart message sent documented in this encounterParkview Health10-30-2024 History of Present illness Narrative* Shiraz Sin, [...] PATIENT PRESENTS WITH AN IMPLANTABLE OR ATTACHED INCIDENT COORDINATOR: No RADIOLOGY DEPARTMENT: General X-ray: Exam(s) Completed: Chest X-Ray PERIPHERAL IV DATA: Not applicable SIGNED BY: RT Valeri(Annabel) June 19, 2024 5:37 PM documented in this encounterParkview Health10-30-2024 NoteHNO ID: [id number] Author: SHIRAZ SIN RT(Annabel) Service: ? Author Type: Roustabout Crew Leader Type: Progress Notes Filed: 06/19/2024 17:44 Note [...] PATIENT PRESENTS WITH AN IMPLANTABLE OR ATTACHED INCIDENT COORDINATOR: No RADIOLOGY DEPARTMENT: General X-ray: Exam(s) Completed: Chest X-Ray PERIPHERAL IV DATA: Not applicable SIGNED BY: RT Valeri(R) June 19, 2024 5:37 [facility]10-30-2024 NoteHNO ID: [id number] Author: ROSA MARTINEZ PA Service: ? Author Type: Physician Public Health Social Worker Type: Progress Notes Filed: 06/19/2024 18:46 Note Text: This note was created using [employer]. Subjective Margo Valero is a 38 year [...] [Povidone-Iodine], Z Yvrose [Azithromycin], Beef Containing Products, Flatwoods, Iodine, and Skin Cleanser MEDICATIONS buPROPion XL [...] detail warranting prompt ER evaluation. Rosa Martinez [facility]10-30-2024 History of Present illness Narrative* Rosa Martinez [...] [Povidone-Iodine], Z Yvrose [Azithromycin], Beef Containing Products, Flatwoods, Iodine, and Skin Cleanser MEDICATIONS buPROPion XL [...] ER evaluation. ABRAHAM Saucedo documented in this encounterParkview Health05-07-2023 Hospital Discharge instructions Additional Instructions Wear finger [...] rule out any type of flexor tendon rupture.[facility] Work Phone: 1(546) 328-816204-10-2023 History of Present illness Narrative* Poornima Casillas MD - 11/28/2022 8:54 AM EDT Patient did not attend intake visit today. Second no show. She should not be scheduled again unlessshe calls and verbalizes intent. documented in this encounterParkview Health12-27-2022 History of Present illness Narrative* Poornima Casillas MD - 08/16/2022 1:00 PM EST Patient did not attend intake visit. documented in this encounterParkview Health11-01-2022 Instructions* Patient Instructions* Arpita Roca MD - 06/21/2022 11:02 AM EDT You were seen in the breast clinic today and we discussed: Psychiatry, psychology referral Evaluation of new symptoms with scans We would like to see you in follow in 3 months with my nurse practitioner. Please call [facility] at [phone] to make that follow up appointment. It was a pleasure participating in your care. Dr. Roca documented in this encounterParkview Health11-01-2022 History of Present illness Narrative* Arpita Roca [...] needle bx with path showing ER 99% MS 1% Her 2 1+ Fish non amp Ki 67 17% grade 3 IDC 06/03/[address] sampling with [address] (out of 8), excision bx of primary site with 3 foci of IDC - clinical stage cT2N1 Neodj ACT completed 09/17/15 10/24/2015 bilateral mastectomy (R therapeutic modified radical mastectomy with ALND and L prophylactic) with licensed staff mft - path stage ypT0N0 Germline testing BRCA 2 positive Did not receive adj RT due to delayed healing from surgery (attributed to chemo) BSO in 2011 (after pt found to be brca 2 pos, this germline testing predated cancer diagnosis, mom had brca2, aunt and grandmother brca 2), hysterectomy in 2015 Nodules of medial aspect of R breast skin [phone], reportedly evaluated with imaging and negative AI: [...] positive (HCC) 06/21/2022 Cancer Staged Staging form: [facility] BREAST CANCER - Clinical: Stage IIB (T2, N1, M0) - Signed by Arpita Roca MD on 06/21/2022 06/21/2022 Cancer Staged Staging form: [facility] BREAST CANCER - Pathologic stage from [...] hospitalization or period of immobilization. Non smoker. STRATEGIC SOURCING CONSULTANT: Menarche: age 10 (1 tubal - miscarriage) Age at first : 20 OCPs: age 16-20, did Mirena IUD x 1 year [id number] Premenopausal: No - bilateral salpingo-oophorectomy CANCER FAMILY [...] [Azithromycin] Unknown Beef Containing Pro* Hives, Swelling Flatwoods Hives, Swelling Iodine Hives, Swelling Skin Cleanser [...] female, estrogen receptor positive (HCC) Staging form: [facility] BREAST CANCER - Clinical: Stage IIB [...] is established with psychiatry, I have shared terminal operations supervisor management of mood stabilizers and sleep aids, [...] which included preparing to see the patient, cnfv-ux-hobe patient care, completing clinical documentation, obtaining and/or reviewing separately obtained history, performing a medically appropriate examination, counseling and educating the pat ient/family/caregiver, and communicating results to the patient/family/caregiver. [facility]* Radha Domingo MA - 06/21/2022 9:51 AM EDT Additional intake questions: Has the patient had fever, nausea, vomiting, diarrhea, constipation, fatigue for > 1 week? No Does the patient have a decreased appetite? No Does patient want to see a Clinical Psychologist Private Practice? No (yes to any of above refer patient to schedulers for dietitian appointment) ) Does patient have any new or increased numbness or tingling of extremities? No Is patient interested in fertility information? No Does patient need any prescription refills? No Does patient have an advanced directive in place? No documented in this [facility] Hospital Discharge instructions Patient Education 01/11/2022 16:43:22 [...] temperature. Use toothpaste made for sensitive teeth. [place] gently up and down instead of sideways. Brushing sideways can wear away root surfaces if they are exposed. If your tooth is chipped or cracked, or if there is a large open cavity, put oil of cloves directlyon the tooth to relieve pain. You can buy oil of cloves at drugstores. Some pharmacies carry an dfkd-yvk-mlqhnfl toothache kit. This contains a paste that you can put on the exposed tooth to make it less sensitive. Put a cold pack on your jaw over the sore area to help reduce pain. You may use swow-lvr-czzcfyu medicine to ease pain, unless your doctor [...] healthcare provider Pus drains from the tooth [id number] [employer] [place] [address]. All rights reserved. This information is not intended as a substitute for professional medical care. Always follow yourhealthcare professional's instructions. Follow Up Care 01/11/2022 16:03:16 With:your oral surgeon Address:Unknown When:2-4 days [facility] Evaluation + Plan note No data available for this section [facility] Evaluation noteNo assessment information available [facility] Work Phone: Evaluation note* Diagnosis Acute right-sided low back pain with sciatica, sciatica laterality unspecified- Primary History of right breast cancer [facility]* Diagnosis Onset Date Resolution Status Distal phalanx or phalanges, closed fracture acute [facility] Work Phone: Evaluation note* Diagnosis Onset Date Resolution Status H/O staphylococcal infection acute Shingles rash acute [facility] Work Phone: Evaluation note* Diagnosis Acute cough- Primary Acute cough [facility]* Diagnosis Acute cough [facility]* Diagnosis Malignant neoplasm of upper-outer quadrant of right breast in female, estrogen receptor positive (HCC)- Primary [facility]* Diagnosis Malignant neoplasm of upper-outer quadrant of right breast in female, estrogen receptor positive (HCC)- Primary [facility]* Diagnosis Malignant neoplasm of upper-outer quadrant of right breast in female, estrogen receptor positive (HCC) documented [facility]* Diagnosis Malignant neoplasm of upper-outer quadrant of right breast in female, estrogen receptor positive (HCC) [facility]* Diagnosis Malignant neoplasm of upper-outer quadrant of right breast in female, estrogen receptor positive (HCC)- Primary documented in this encounter [facility] note* Diagnosis Malignant neoplasm of upper-outer quadrant of right breast in female, estrogen receptor positive (HCC)- Primary History of DVT (deep vein thrombosis) Personal history of venous thrombosis and embolism documented in this encounter [facility] No data available for this section [facility] Reason for referral (narrative)No reason for referral [facility] Work Phone: Reason for visit Narrative* Diagnostic Procedure Only (Routine) - Closed Specialty Diagnoses / Procedures Referred By Atul t Referred To Contact MOLECULAR & FUNCTIONAL IMAGING Diagnoses Malignant neoplasm of upper-outer quadrant of right breast in female, estrogen receptor positive (HCC) Procedures NM BONE WHOLE BODY BONE &/JOINT IMAGING WHOLE BODY Ross Marion DO [address] [place] [address] Phone: tel: fax: Molecular Imaging [address] [place] [id number] Phone: tel: Referral ID Status Reason Start Date Expiration Date V isits Requested Visits Authorized [id number] Closed Auto-Generate d Referral 11/26/2024 12/26/2025 1 1 [facility] for visit Narrative* MRI/CT (Routine) - Closed Specialty Diagnoses / Procedures Referred By Contac t Referred To Contact CT IMAGING Diagnoses Malignant neoplasm of upper-outer quadrant of right breast in female, estrogen receptor positive (HCC) Procedures CT CHEST W IVCON DIAGNOSTIC COMPUTED TOMOGRAPHY THORAX W/CONTRAST Ross Marion, DO [address] [place] [address] Phone: tel: fax: [place] [phone] Referral ID Status Reason Start Date Expiration Date V isits Requested Visits Authorized [id number] Closed Auto-Generate d Referral 11/26/2024 12/26/2025 1 1 [facility] for visit Narrative* MRI/CT (Routine) - Closed Specialty Diagnoses / Procedures Referred By Contac t Referred To Contact CT IMAGING Diagnoses Malignant neoplasm of upper-outer quadrant of right breast in female, estrogen receptor positive (HCC) Procedures CT CHEST W IVCON DIAGNOSTIC COMPUTED TOMOGRAPHY THORAX W/CONTRAST Ross Marion, DO [address] [place] [address] Phone: tel: fax: [place] [phone] Referral ID Status Reason Start Date Expiration Date V isits Requested Visits Authorized [id number] Closed Auto-Generate d Referral 11/26/2024 12/26/2025 1 1 [facility] Summary Purpose Family History No Family History Records Found Relationship Condition Age at Onset Recorded Date/T [place] mother Malignant neoplasm of breast Unknown Unknown Depression Unknown Hypertension Unknown Osteoporosis Unknown aunt Malignant neoplasm of breast Unknown grandmother Malignant neoplasm of breast Unknown Advance Directives No Advanced Directives Records Found Advance Directive Response Recorded Date/ Time Living Will No April 09 4:25pm Power of Distribution Supervisor No April 09 022 4:25pm Advance Directive Response Recorded Date/ Time Living Will Yes December 25, 2022 9: 03pm Power of Distribution Supervisor Yes December 25, 2022 9:03pm Name of Medical Power of Distribution Supervisor December 25, 2022 9:03pm Advance Directive Response Recorded Date/ Time Name of Medical Power of Distribution Supervisor December 25, 2022 9:03pm Living Will Yes December 25, 2022 9: 03pm Power of Distribution Supervisor Yes December 25, 2022 9:03pm Advance Directive Response Recorded Date/ Time Living Will Yes December 25, 2022 9: 03pm Power of Distribution Supervisor Yes December 25, 2022 9:03pm Advance Directive Response Recorded Date/ Time Do you have a Healthcare Power of Distribution Supervisor? No December 19, 2024 8:52pm Chief Complaint [...] COUNSELING EACH 30 MINUTES Arpita Roca MD [address] [place] [address] [address] Referral ID Status Reason Start Date Expiration Date Visits Requested Visits Authorized [id number] Authorized PCP Requested Referral Auto-Generate d Referral 06/21/2022 06/21/2023 1 1 Specialty Diagnoses / Procedures Referred By Atul castro Referred To Contact MOLECULAR & FUNCTIONAL IMAGING Diagnoses Acute right-sided low back pain with sciatica, sciatica laterality unspecified Procedures NM BONE WHOLE BODY BONE &/JO[place] [address] [place] [id number] [facility] [address] [place] [address] Referral ID Status Reason Start Date Expiration Date Visits Requested Visits Authorized [id number] Pending Review Auto-Generat ed Referral 06/21/2022 07/21/2023 1 1 Additional Source Comments INFORMATION SOURCE (unrecogn ized section and content) DATE CREATED AUTHOR 02/13/2018 [facility] DATE CREATED AUTHOR AUTHOR'S ORGANIZ ATION 02/09/2025 [facility] DATE CREATED AUTHOR AUTHOR'S ORGANIZ ATION 03/10/2025 [facility] DATE CREATED AUTHOR AUTHOR'S ORGANIZ ATION 03/12/2025 [facility] Goals (unrecognized section and content) Goals may be documented in a n alternate section Source Comments (unrecognize d section and content) In the event this informatio n is protected by the Federal Confidentiality of Alcohol and Drug Abuse Patient Records regulations: The Federal rules restrict any use of the information to criminally investigate or prosecute any alcohol or drug abuse patient.[facility] HealthIn the event this information is protected by the Federal Confidentiality of Alcohol and Drug Abuse Patient Records regulations: The Federal rules restrict any use of the information to criminally investigate or prosecute any alcohol or drug abuse patient.[facility] HealthIn the event this information is protected by the Federal Confidentiality of Alcohol and Drug Abuse Patient Records regulations: The Federal rules restrict any use of the information to criminally investigate or prosecute any alcohol or drug abuse patient.[facility] HealthIn the event this information is protected by the Federal Confidentiality of Alcohol and Drug Abuse Patient Records regulations: The Federal rules restrict any use of the information to criminally investigate or prosecute any alcohol or drug abuse patient.[facility] HealthIn the event this information is protected by the Federal Confidentiality of Alcohol and Drug Abuse Patient Records regulations: The Federal rules restrict any use of the information to criminally investigate or prosecute any alcohol or drug abuse patient.[facility] HealthIn the event this information is protected by the Federal Confidentiality of Alcohol and Drug Abuse Patient Records regulations: The Federal rules restrict any use of the information to criminally investigate or prosecute any alcohol or drug abuse patient.[facility] HealthIn the event this information is protected by the Federal Confidentiality of Alcohol and Drug Abuse Patient Records regulations: The Federal rules restrict any use of the information to criminally investigate or prosecute any alcohol or drug abuse patient.[facility] HealthIn the event this information is protected by the Federal Confidentiality of Alcohol and Drug Abuse Patient Records regulations: The Federal rules restrict any use of the information to criminally investigate or prosecute any alcohol or drug abuse patient.[facility] HealthIn the event this information is protected by the Federal Confidentiality of Alcohol and Drug Abuse Patient Records regulations: The Federal rules restrict any use of the information to criminally investigate or prosecute any alcohol or drug abuse patient.[facility] HealthIn the event this information is protected by the Federal Confidentiality of Alcohol and Drug Abuse Patient Records regulations: The Federal rules restrict any use of the information to criminally investigate or prosecute any alcohol or drug abuse patient.[facility] HealthIn the event this information is protected by the Federal Confidentiality of Alcohol and Drug Abuse Patient Records regulations: The Federal rules restrict any use of the information to criminally investigate or prosecute any alcohol or drug abuse patient.[facility] HealthIn the event this information is protected by the Federal Confidentiality of Alcohol and Drug Abuse Patient Records regulations: The Federal rules restrict any use of the information to criminally investigate or prosecute any alcohol or drug abuse patient.[facility] HealthIn the event this information is protected by the Federal Confidentiality of Alcohol and Drug Abuse Patient Records regulations: The Federal rules restrict any use of the information to criminally investigate or prosecute any alcohol or drug abuse patient.[facility] HealthIn the event this information is protected by the Federal Confidentiality of Alcohol and Drug Abuse Patient Records regulations: The Federal rules restrict any use of the information to criminally investigate or prosecute any alcohol or drug abuse patient.[facility] HealthIn the event this information is protected by the Federal Confidentiality of Alcohol and Drug Abuse Patient Records regulations: The Federal rules restrict any use of the information to criminally investigate or prosecute any alcohol or drug abuse patient.[facility] HealthIn the event this information is protected by the Federal Confidentiality of Alcohol and Drug Abuse Patient Records regulations: The Federal rules restrict any use of the information to criminally investigate or prosecute any alcohol or drug abuse patient.[facility] HealthIn the event this information is protected by the Federal Confidentiality of Alcohol and Drug Abuse Patient Records regulations: The Federal rules restrict any use of the information to criminally investigate or prosecute any alcohol or drug abuse patient.[facility] Reason for Visit (unrecogniz ed section and [...] WHOLE BODY Ross Marion DO [address] [place] [address] Phone: tel: fax: Molecular Imaging [address] [place], [place] [id number] Phone: tel: Referral ID Status Reason Start Date Expiration Date V isits Requested Visits Authorized [id number] Closed Auto-Generate d Referral 11/26/2024 12/26/2025 1 [...] Inactive Member Role Status Dates Dr. Elliot Stlies MD Attending Provider Active Start: January 23, 2025 End: January 23, 2025 Mallory Robertson MD Primary Care Provider Active St art: January 23, 2025 End: January 23, 2025 Mallory Robertson MD Referring Provider Active Start : January 23, 2025 End: January 23, 2025 Logistics Intern Relationship Specialty Start Date End Date Rachelle Esparza MD [address] [place] [address] PCP - General Family Medicine 06/19/24 Adrianne Galicia RN Specialty Advertising Clerk Oncology 03/02/18 Team Status: Active Member Role Status Dates Grant Gee [employer], [employer] Family Provider Active Vicky Morales DO Primary Care Provider Active Team Status: Inactive Member Role Status Dates Vicky Morales DO Primary Care Provider Active Dr. Santana Cortes DO Emergency Provider Active Logistics Intern Relationship Specialty Start Date End Date Flynn Grant ([facility]) [address] [place] [id number] PCP - General Family Medicine 03/01/18 Adrianne Galicia RN Specialty Advertising Clerk Oncology 03/02/18 FOR RECORDS PERTAINING TO PATIENTS [...] BE BASED ON THE PRIMARY CLINICAL RECORDS. [facility] [employer] provides no warranty or guarantee of the accuracy or completeness of information in this document.
[2025-04-06] MEDS: buPROPion (XL) 300 MG TABLET.XL PO ×2 (01:05→21:31)
--- NOTE | 2025-04-06 01:13 | MRI_ITS ---
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 TECHNIQUE: BRAIN W/WO CONTRAST Multiplanar and multisequence images were obtained. COMPARISON: 04/05/2025. 12/19/2024. FINDINGS: The ventricles are normal in size and midline in position. No evidence of acute hemorrhage or infarction. No extra-axial blood or fluid collections. No abnormal intracranial enhancement. Left frontal and left maxillary sinus mucosal thickening. MRI/Brain W/WO Contrast IMPRESSION: No acute intracranial abnormality. Chronic left ostiomeatal sinus disease. Reading Location: [id number]
--- OUTSIDE RECORDS SUMMARY | 2025-04-06 01:19 | XMS RPT_ITS | CCD ---
Author Organization [facility] Care Team Providers Care Windsurfing Instructor Name Role Phone Monika Partida MD Unavailable [phone] Albert Parr Unavailable Hamilton Sam Unavailable Unavailable OSMANI ARTHUR Unavailable Unavailable PHYSICIAN, NONE Unavailable Unavailable Albert Parr Unavailable Monika Partida MD Unavailable [phone] Annie Alva Unavailable Unavailable PHYSICIAN, NONE Primary Care Physician Unavailab Grant Giang ([facility]) Primary Care Provider Grayson RN, Adrianne Unavailable Unavailable Grant Flynn ([facility]) Primary Care Provider Grayson RN, Adrianne Unavailable [...] Provider MASCI, ROSS A Referring Unavailable ESPARZA, RCAHELLE A Primary Care Unavailable MASCI, ROSS A [...] Referring Unavailable Ailyn, Chalon Primary Care Unavailable Aiyln, Chalon Primary Care Unavailable Sischrista, Elliot Attending [...] (5 sources) povidone-iodine drug allergy 03-09-20 17 [facility] Work Phone: (5 sources) Z PACK drug allergy 03-09-20 17 [facility] Work Phone: (20 sources) Azithromycin; Translations: [azithromycin] Drug Allergy 03-23-20 17 [facility] (9 sources) Chlorhexidine; Translations: [chlorhexidine topical] Drug Allergy 04-12-20 21 [facility] (20 sources) Iodine; Translations: [iodine] Drug Allergy 03-22-20 19 Hives, Swelling [facility] Comment on above: burning (8 sources) Ondansetron; Translations: [ondansetron] Drug Allergy 12-26-19 23 Drug-induced constipation with proper administration [facility] (1 source) silver sulfADIAZINE; Translations: [silver sulfadiazine topical] Drug Allergy [facility] (10 sources) corn allergenic extract; Translations: [CORN] Drug Allergy 03-01-20 18 swelling [facility] (8 sources) Morphine Drug Allergy 04-12-20 21 Other [facility] Comment on above: HEADACHE, AGITATION (20 sources) Povidone-Iodine; Translations: [POVIDONE-IODINE] Drug Allergy 03-23-20 17 Unknown [facility] (9 sources) Shellfish; Translations: [shellfish derived] Allergy to substance 04-12-20 21 Anaphylaxis [facility] (8 sources) SUMAtriptan Drug Allergy 04-12-20 21 Rash [facility] (20 sources) Beef Containing Products; Translations: [BEEF CONTAINING PRODUCTS] Allergy to substance 03-01-20 18 Hives, Swelling [facility] Comment on above: upset stomach (9 sources) soap; Translations: [soap] Allergy to substance 04-12-20 21 Hives [facility] (17 sources) Lawrence silk preparation Drug Allergy 03-01-20 18 Hives, Swelling [facility] (19 sources) Shellfish; Translations: [SHELLFISH CONTAINING PRODUCTS] Drug Allergy 03-01-20 18 Anaphylaxis [facility] (19 sources) Skin Cleanser; Translations: [SKIN CLEANSER] Drug Allergy 03-01-20 18 Hives, Itching [facility] (1 source) Azithromycin Drug Allergy 03-07-20 25 [facility] Repository (1 source) Chlorhexidine Drug Allergy 03-07-20 25 [facility] (1 source) corn extract Drug Allergy 03-07-20 25 [facility] (1 source) Iodine Drug Allergy 07 [facility] (1 source) Morphine Drug Allergy 03-07-20 [facility] (1 source) Ondansetron Drug Allergy 03-07-20 [facility] (1 source) Povidone-Iodine Drug Allergy 03-07-20 [facility] (1 source) SUMAtriptan Drug Allergy 03-07-20 [facility] (1 source) Beef Containing Products Drug allergy (disorder) 03-07-20 [facility] Repository Medications Current Medications Medication Drug Class(es) [...] HCL 10-20 MG CAPS AMLODIPINE BESY-BENAZEPRIL HCL [id number] Albert Parr amoxicillin 875 mg / clavulanate [...] Cholecalciferol (Vitamin D3) 50,000 unit capsule Discontinued 18753 U PO EVERY WEEK 8 October 31, [...] November 13, 2023 12:05am Acute sinusitis, unspecified [id number] 0.3 ml EPINEPHrine 1 mg/ml auto-injector (9 [...] Ergocalciferol (Vitamin D2) 50,000 unit capsule Discontinued 90140 U PO EVERY WEEK 8 October 31, [...] q 6 hrs PRN pain TRAMADOL HCL [id number] Monika Partida MD valACYclovir 1000 mg oral [...] 11:24am Start: 01-25-2017 EFFEXOR XR 150 MG [id number] VENLAFAXINE HCL [id number] Albert Parr Start: 01-25-2017 EFFEXOR XR 150 MG [id number] VENLAFAXINE HCL [id number] Albert Parr Comment on above: Take 1 capsule by mo ndh once daily. Problems Active Problems Problem Classification [...] Report on 03-07-2025 Plastic Surgery Visit Report [facility] Plastic Reconstructive Surgery [address], [address] [place] [address] OFFICE VISIT Date of Service: 03/07/25 MR#: [id number] Acct: [id number] Name: MARGO VALERO Rep #: [id number] : 1985 Provider: Dr. Elliot Stiles MD Age/Sex: 39/F Location: [facility] Status: Signed Intake Vital Signs [...] patient was advised to consult with a health education coordinator for a perioperative anticoagulation plan and to [...] Breast asymm (more content not included)... Normal [facility] 03-05-2025 SILVINO Telephone (KUSH) MARGO VALERO ([id number]) 1985 F Date Time Provider Department 03/05/25 [...] Spoke w pt to schedule consult to [facility] which require the pt to call and schedule, pt was given the number to call and schedule at [facility] as closer locations are booked out further [...] for a recommendation to someone closer to [place]. If she is unsuccessful, she will contact [...] Order(s):CONSULT TO VASCULAR MEDICINE [19991125] Order #: [id number]: 1 FUTURE Prescriptions as of 03/10/2025 - [...] Encounter Status:Closed by LARISSA TANG on 03/10/25 [facility] MR/PATSherry 02-26-2025 MR/PETE.AMY [facility] Medical Records Department [address] [place] [address] PAT - Anesthesia 02/26/25 1607 MR#: [id number] Acct: [id number] Name: MARGO VALERO Rep #: [id number] : 1985 39 From: Roderick Ervin MD PCP: Dr. Mallory Robertson MD Status:PRE IN Y Race: C Location: [facility] Pre-Assessment Diagnosis/Proposed Procedure Planned Operative Procedure(s): BREAST REDUCTION REVISION Anesthesia History Anesthesia History - ms access database developer: Anesthesia History - ms access database developer Hx Hospitalization No 02/26/25 15:28 Any Problems [...] take am of surgery PONV PONV - ms access database developer: PONV - ms access database developer Female Yes 02/26/25 15:28 HX of Motion [...] 01/08/25 15:50 Respiratory Assessment Respiratory Assessment - ms access database developer: Respiratory Tract Infection Hx - ms access database developer Hx Respiratory Tract Infection No 02/26/25 15:28 STOP Sleep Apnea STOP Sleep Apnea - ms access database developer: STOP Sleep Apnea - ms access database developer Hx Hypertension Yes: ON DAILY MED MANY [...] Tobacco Use History Tobacco Use History - ms access database developer: Tobacco Use History - ms access database developer Tobacco Use Smoking Status Never smoker 02/26/25 15:28 Hx Tobacco Use No 02/26/25 15:28 Years Smoking Packs Smoked per Day Smoking Cessation Date was within the last 15 years Hx Smoking Cessation Date Hx Smoking Cessation Counseling Hematologic Medial History Hematologic Hx - ms access database developer: 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 Normal [facility] Breast Limited Unilateralon 02-13-2025 Breast Limited Unilateral [facility] Imaging Services [address], [place] [id number] Breast Limited Unilateral MR#: [id number] Acct: [id number] Name: MARGO VALERO Rep #: [id number] : 1985 F 39 From: Eliceo chapa MD PCP: Dr. Mallory Robertson MD Status: REG CLI Study: Breast Limited Unilateral Date of Exam: Exam# [id number] Ordering Dr: Elliot Stiles MD PROCEDURE: BREAST [...] MRI Recommended BI-RADS category 0 Reading Location: [id number] CC: Dr. Mallory Robertson MD; Dr. Elliot Stiles MD Railroad Car Inspector: Signed Normal [facility] Breast Limited Unilateral [facility] Imaging Services [address], [place] [id number] Breast Limited Unilateral MR#: [id number] Acct: [id number] Name: MARGO VALERO Rep #: [id number] : 1985 F 39 From: Eliceo chapa MD PCP: Dr. Mallory Robertson MD Status: REG CLI Study: Breast Limited Unilateral Date of Exam: Exam# [id number] Ordering Dr: Elliot Stiles MD PROCEDURE: BREAST [...] - NEED ADDITIONAL IMAGING EVALUATION. Reading Location: [id number] CC: Dr. Mallory Robertson MD; Dr. Elliot Stiles MD Railroad Car Inspector: Signed Normal [facility] Plastic Surgery Visit Report on 02-07-2025 Plastic Surgery Visit Report [facility] Plastic Reconstructive Surgery [address] [place] [address] OFFICE VISIT Date of Service: 02/07/25 MR#: [id number] Acct: [id number] Name: MARGO VALERO Rep #: [id number] : 1985 Provider: Dr. Elliot Stiles MD Age/Sex: 39/F Location: [facility] Status: Signed Intake Vital Signs 01/08/25 15:50 [...] of right breast in 2016 performed in [place]. Patient also underwent bilateral salpingo-oophorectom y/hysterectomy (BRCA positive). She reports wound healing issues following the reconstructive surgery with implants. Patient follows with Dr. Marion from [facility] oncology, who referred her to me out of concern for collapse of the left breast implant and potential collapse of the right breast implant. She has not had an MRI or any other imaging. No history of any radiation. 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 She was on oral blood thinner [...] contributed to (more content not included)... Normal [facility] CT ABD/PEL W IVCONon 025 CT ABD/PEL W IVCON * * *Final Report* * * DATE OF EXAM: Feb 06 2025 10:57AM [facility]30 - CT ABD/PEL W IVCON / [...] metastatic disease within the abdomen or pelvis. Railroad Car Inspector: TIANA Transcribe Date/Time: Feb 06 2025 11:13A Dictated by : DMITRI STRICKLAND MD This examination was interpreted and the report reviewed and electronically signed by: DMITRI STRICKLAND MD on Feb 06 2025 11:22AM EST [id number] CN [facility] CT Abdomen and Pelvis W cont rast Stephen 02-06-2025 * * *Final Report* * * DATE OF EXAM: Feb 06 2025 10:57AM [facility] 0530 - CT ABD/PEL W IVCON / [...] a tiny umbilical hernia, containing omental fat. [facility] Provider, [facility] Imaging Qulin - 02/06/2025 * * *Final Report* * * DATE OF EXAM: Feb 06 2025 10:57AM [facility] 0530 - CT ABD/PEL W IVCON / [...] metastatic disease within the abdomen or pelvis. Railroad Car Inspector: TIANA Transcribe Date/Time: Feb 06 2025 11:13A Dictated by : DMITRI STRICKLAND MD This examination was interpreted and the report reviewed and electronically signed by: DMITRI STRICKLAND MD on Feb 06 2025 11:22AM EST [facility] CT CHEST W IVCONon 5 CT CHEST W IVCON * * *Final Report* * * DATE OF EXAM: Feb 06 2025 10:57AM [facility] 0539 - CT CHEST W IVCON / [...] metastatic disease within the abdomen or pelvis. Railroad Car Inspector: PSCB Transcribe Date/Time: Feb 06 2025 11:13A Dictated by : DMITRI STRICKLAND MD This examination was interpreted and the report reviewed and electronically signed by: DMITRI STRICKLAND MD on Feb 06 2025 11:22AM EST [id number] [facility] CT Chest W contrast Stephen * * *Final Report* * * DATE OF EXAM: Feb 06 2025 10:57AM [facility] 0539 - CT CHEST W IVCON / [...] a tiny umbilical hernia, containing omental fat. [facility] Provider, [facility] Imaging [place] - 02/06/2025 * * *Final Report* * * DATE OF EXAM: Feb 06 2025 10:57AM [facility] 0539 - CT CHEST W IVCON / [...] metastatic disease within the abdomen or pelvis. Railroad Car Inspector: TIANA Transcribe Date/Time: Feb 06 2025 11:13A Dictated by : DMITRI STRICKLAND MD This examination was interpreted and the report reviewed and electronically signed by: DMITRI STRICKLAND MD on Feb 06 2025 11:22AM [facility] NURSING PROGon 02-06-2025 NURSING PROG HNO ID: [id number] Author: SHMUEL LOVE RN Service: Nursing Author [...] February 06, 2025 TIME: 9:59 AM Normal [facility] No Panel Informationon 02-06 IMPRESSION: No acute abdominal process is identified. No convincing CT evidence for metastatic disease to chest. No acute abdominal or pelvic process is identified. No convincing CT evidence for metastatic disease within the abdomen or pelvis. Railroad Car Inspector: PSCB Transcribe Date/Time: Feb 06 2025 11:13A Dictated by : DMITRI STRICKLAND MD This examination was interpreted and the report reviewed and electronically signed by: DMITRI STRICKLAND MD on Feb 06 2025 11:22AM [facility] Radiology Study observation (narrative) [facility] No Panel InformationOrdered By: Ccf Provider on 02-06-2025 [facility] Plastic Surgery Visit Report on 01-23-2025 Plastic Surgery Visit Report [facility] Plastic Reconstructive Surgery [address], [address] [place], [place] [id number] OFFICE VISIT Date of Service: 01/23/25 MR#: [id number] Acct: [id number] Name: MARGO VALERO Rep #: [id number] : 1985 Provider: Dr. Elliot Stiles MD Age/Sex: 39/F Location: [facility] Status: Signed Intake Vital Signs [...] of right breast in 2016 performed in [place]. Patient also underwent bilateral salpingo-oophorectom y/hysterectomy (BRCA positive). She reports wound healing issues following the reconstructive surgery with implants. Patient follows with Dr. Marion from [facility] oncology, who referred her to me out of concern for collapse of the left breast implant and potential collapse of the right breast implant. She has not had an MRI or any other imaging. No history of any radiation. 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 She was on oral blood thinner [...] or abdominal (more content not included)... [facility] S[facility]O [facility] (KUSH) MARGO VALERO ([id number]) 1985 F Date Time Provider Department 01/21/25 ROSS MARION During your visit today, we recorded the following information about you: Larissa Tang LPN 01/21/2025 10:02 AM Addendum PSS- please see phone note from 12/05/[address]24. Patient needs [address]'s scheduled at [facility] d/t iodine listed as an allergy with hives/swelling. Please contact her to schedule at [place]. Dr. Marion sent in a prednisone prep. Patient is aware of all instructions regarding prep. ERIKA Lawrence Naomi 01/21/2025 10:31 AM Signed Lvm for pt to call back and reschedule CT at [facility]. Dixie Shaikh 01/22/2025 8:38 AM Signed [...] Reason for Visit: Appointment [186] Patient Question [5417] Primary Visit Diagnosis:Malignant neoplasm of upper-outer quadrant [...] Encounter Status:Closed by LUISA LOPEZ on 02/12/25 [facility] 12 Lead EKGon 12-19-2024 12 Lead EKG [facility] Cardiovascular Services [address] [place] [address] 12 Lead EKG 12/19/24 2146 MR#: [id number] Acct: [id number] Name: MARGO VALERO Rep #: [id number] : 1985 39 From: Charlie Damon MD [...] Normal ECG Confirmed by ETIENNE YOON, CHARLIE ([id number]), food editor JAIR PAREDES ([id number]) on 12/20/2024 8:21:09 AM Referred By: AK Confirmed By: CHARLIE DAMON MD 12/20/24820 Date Charlie Daomn MD CC: Dr. Jaime Saenz, DO; Dr. Rachelle Esparza MD Signed Normal [facility] Absolute lymphocyte countOrd ered By: Jaime Saenz on 12-19-2024 Lymphocytes Auto (Unsp spec) [#/Vol] 3.05 10*3/uL 0.83-4.51 [facility] Absolute neutrophil countOrd ered By: Jaime Saenz on 12-19-2024 Neutrophils (Bld) [#/Vol] 4.6 10*3/uL 2.0-7.7 [facility] Anion gap in Serum or Plasma Ordered By: Jaime Saenz on 12-19-2024 Anion gap [Moles/Vol] 10 mmol/L 01-02 [facility] Automated lymphocyte count a s percentage of total leukocytesOrdered By: Jaime Saenz on 12-19-2024 Lymphocytes/100 WBC Auto (Unsp spec) 35.5 % [facility] BUN/creatinine ratioOrdered By: Jaime Saenz on 12-19-2024 Urea nitrogen/Creatinine [Mass ratio] 15.1 mg/mg - [facility] Basic Metabolic Profile (BMP )on 12-19-2024 BUN/CRE 15.1 RATIO Normal - [facility] Comment on above: Performed By: #### L 500.2500, L503.7505 #### [facility] Laboratory [address] [place], [address] Calcium [Mass/Vol] 9.5 mg/dL Normal 7.6-11.0 [facility] Comment on above: Performed By: #### L 500.2500, L503.7505 #### [facility] [address] [place], [address] Chloride [Moles/Vol] 105 mmol/L Normal 98-108 [facility] Comment on above: Performed By: #### L 500.2500, L503.7505 #### [facility] [address] [place], [address] CO2 [Moles/Vol] 25.5 mmol/L Normal 21.0-32.0 [facility] Comment on above: Performed By: #### L 500.2500, L503.7505 #### [facility] [address] [place], [address] Creatinine [Mass/Vol] 0.92 mg/dL Normal 0.70-1.20 [facility] Comment on above: Performed By: #### L 500.2500, L503.7505 #### [facility] [address] [place], [address] ECRCL 95.75 ml/min Normal 50-250 [facility] Comment on above: Performed By: #### L 500.2500, L503.7505 #### [facility] [address] [place], [address] GAP 10 Normal 5-15 [facility] Comment on above: Performed By: #### L 500.2500, L503.7505 #### [facility] [address] [place], [address] GFR/1.73 sq M.predicted among non-blacks MDRD (S/P/Bld) [Vol rate/Area] 82 mL/min/{1.73_m2} Normal >60 [facility] Comment on above: Result Comment: mL/m in/1.73m2 CKD-EPI Creatinine Equation (2020) Performed By: #### L 500.2500, L503.7505 #### [facility] [address] [place], [address] Glucose [Mass/Vol] 87 mg/dL Normal 70-99 [facility] Comment on above: Performed By: #### L 500.2500, L503.7505 #### [facility] [address] [place], [address] Potassium [Moles/Vol] 3.5 mmol/L Normal 3.3-5.1 [facility] Comment on above: Performed By: #### L 500.2500, L503.7505 #### [facility] [address] [place], [address] Sodium [Moles/Vol] 140 mmol/L Normal 133-145 [facility] Comment on above: Performed By: #### L 500.2500, L503.7505 #### [facility] [address] [place], [address] Urea nitrogen [Mass/Vol] 14 mg/dL Normal 4-19 [facility] Comment on above: Performed By: #### L 500.2500, L503.7505 #### [facility] [address] [place], [address] Basophil percentageOrdered B y: Jaime Saenz on 12-19-2024 Basophils/100 WBC (Bld) 0.7 % 0-1 [facility] Brain/Head without Contrasto n 12-19-2024 Brain/Head without Contrast [facility] Imaging Services [address] [place] [address] Brain/Head without Contrast MR#: [id number] Acct: [id number] Name: MARGO VALERO Rep #: [id number] : 1985 F 39 From: Ladarius moon MD PCP: Dr. Rachelle Esparza MD Status: REG ER Study: Brain/Head without Contrast Date of Exam: 09/14 Exam# [id number] Ordering Dr: Jaime Saenz DO PROCEDURE: BRAIN/HEAD [...] Jaime Saenz DO; Dr. Rachelle Esparza MD Railroad Car Inspector: Signed Normal [facility] CBC W/Diff, Automatedon 05- Absolute Lymph 3.05 X10 3/uL Normal 0.83-4.51 [facility] Comment on above: Performed By: #### L 100.0100, L501.4021 #### [facility] [address] [place], [address] Absolute Neut 4.6 X10 3/uL Normal 2.0-7.7 [facility] Comment on above: Performed By: #### L 100.0100, L501.4021 #### [facility] [address] [place], [address] Basophils/100 WBC (Bld) 0.7 % Normal 0-1 [facility] Comment on above: Performed By: #### L 100.0100, L501.4021 #### [facility] [address] [place], [address] Eosinophils/100 WBC (Bld) 3.1 % Normal 0-5 [facility] Comment on above: Performed By: #### L 100.0100, L501.4021 #### [facility] [address] [place], [address] Erythrocyte distribution width (RBC) [Ratio] 11.9 % Normal 11.6-14.6 [facility] Comment on above: Performed By: #### L 100.0100, L501.4021 #### [facility] [address] [place], [address] Hematocrit (Bld) [Volume fraction] 40.6 % Normal 37-47 [facility] Comment on above: Performed By: #### L 100.0100, L501.4021 #### [facility] [address] [place], [address] Hemoglobin (Bld) [Mass/Vol] 14.5 g/dL Normal 12.0-15.0 [facility] Comment on above: Performed By: #### L 100.0100, L501.4021 #### [facility] [address] [place], [address] IG% 0.200 Normal 0.0-0.9 [facility] Comment on above: Result Comment: IG% - Immature Granulocytes (promyelocytes, myelocytes and metamyelocytes) > 1% indicates that a LEFT SHIFT is Present. Performed By: #### L 100.0100, L501.4021 #### [facility] [address] [place], [address] Lymphocytes/100 WBC (Bld) 35.5 % Normal 19-41 [facility] Comment on above: Performed By: #### L 100.0100, L501.4021 #### [facility] [address] [place], [address] MCH (RBC) [Entitic mass] 30.4 pg Normal 27.0-32.0 [facility] Comment on above: Performed By: #### L 100.0100, L501.4021 #### [facility] [address] [place], [address] MCHC (RBC) [Mass/Vol] 35.7 g/dL Normal 32-36 [facility] Comment on above: Performed By: #### L 100.0100, L501.4021 #### [facility] [address] [place], [address] MCV (RBC) [Entitic vol] 85.1 fL Normal 81-99 [facility] Comment on above: Performed By: #### L 100.0100, L501.4021 #### [facility] [address] [place], [address] Monocytes/100 WBC (Bld) 6.6 % Normal 0-[address] [facility] Comment on above: Performed By: #### L 100.0100, L501.4021 #### [facility] [address] [place], [address] Neutrophils/100 WBC (Bld) 53.9 % Normal 47-70 [facility] Comment on above: Performed By: #### L 100.0100, L501.4021 #### [facility] [address] [place], [address] Nucleated RBC (Bld) [#/Vol] 0 10*3/uL Normal 0-5 [facility] Comment on above: Performed By: #### L 100.0100, L501.4021 #### [facility] [address] [place], [address] Platelet mean volume (Bld) [Entitic vol] 9.0 fL Normal 6.2-12.0 [facility] Comment on above: Performed By: #### L 100.0100, L501.4021 #### [facility] [address] [place], [address] Platelets (Bld) [#/Vol] 285 10*3/uL Normal 150-450 [facility] Comment on above: Performed By: #### L 100.0100, L501.4021 #### [facility] [address] [place], [address] RBC (Bld) [#/Vol] 4.77 10*6/uL Normal 4.2-5.4 [facility] Comment on above: Performed By: #### L 100.0100, L501.4021 #### [facility] [address] [place] [place], [address] RDW SD 36.0 fl Normal 35.1-43.9 [facility] Comment on above: Performed By: #### L 100.0100, L501.4021 #### [facility] [address] [place] [place], [address] WBC (Bld) [#/Vol] 8.6 10*3/uL Normal 4.4-11.0 [facility] Comment on above: Performed By: #### L 100.0100, L501.4021 #### [facility] [address] [place], [address] Carbon dioxide, total [Moles /volume] in Central venous bloodOrdered By: Jaime Saenz on 12-19-2024 CO2 [Moles/Vol] 25.5 mmol/L 21.0-32.0 [facility] Chest PA and Lateralon 12-19 Chest PA and Lateral [facility] Imaging Services [address] [place] [address] Chest PA and Lateral MR#: [id number] Acct: [id number] Name: MARGO VALERO Rep #: [id number] : 1985 F 39 From: Ladarius moon MD PCP: Dr. Rachelle Esparza MD Status: REG ER Study: Chest PA and Lateral Date of Exam: 12/19/24 Exam# [id number] Ordering Dr: Jaime Saenz DO PROCEDURE: CHEST [...] Jaime Saenz DO; Dr. Rachelle Esparza MD Railroad Car Inspector: Signed Normal [facility] Chloride assayOrdered By: Fly Saenz on 12-19-2024 Chloride [Moles/Vol] 105 mmol/L 98-108 [facility] Emergency Department Summary on 12-19-2024 Emergency Department Summary [facility] Medical Records Department [address] [place] [address] Emergency Department Summary 12/19/24 MR#: [id number] Acct: [id number] Name: MARGO VALERO Rep #: [id number] : 1985 39 From: Jaime Saenz DO [...] intact Psych: Cooperative, appropriate mood and affect [facility] Medical History Chronic pain Seasonal [...] 81 74 (more content not included)... Normal [facility] Eosinophil percentageOrdered By: Jaime Saenz on 12-19-2024 Eosinophils/100 WBC (Bld) 3.1 % 0-5 [facility] Erythrocyte distribution wid th ratioOrdered By: Jaime Saenz on 12-19-2024 Erythrocyte distribution width (RBC) [Ratio] 11.9 % 11.6-14.6 [facility] Erythrocyte distribution wid th standard deviationOrdered By: Jaime sedrick Ascencio on 12-19-2024 Erythrocyte distribution width (RBC) [Ratio] 36.0 fl 35.1-43.9 [facility] Glomerular filtration rate ( GFR) estimation/1.73 sq m using serum, plasma, or whole bOrdered By: Jaimejese Saenz on 12-19-2024 GFR/1.73 sq M.predicted among non-blacks MDRD (S/P/Bld) [Vol rate/Area] 82 mL/min/{1.73_m2} >60 [facility] Comment on above: mL/min/1.73m2 CKD-EP I Creatinine Equation (2020) Hematocrit Auto (Bld) [Volum e fraction]Ordered By: [facility] [place] on 12-19-2024 Hematocrit (Bld) [Volume fraction] 40.6 % 37-47 [facility] Hemoglobin measurementOrdere d By: [facility] on 12-19-2024 Hemoglobin (Bld) [Mass/Vol] 14.5 g/dL 12.0-15.0 [facility] Immature granulocytes/100 WB C Auto (Bld)Ordered By: [facility] [place] on 12-19-2024 Immature granulocytes/100 WBC (Bld) 0.200 % 0.0-0.9 [facility] Comment on above: IG% - Immature Granu locytes (promyelocytes, myelocytes and metamyelocytes) > 1% indicates that a LEFT SHIFT is Present. L499.0042on 12-19-2024 Trop T High Sen < 6 Normal <=14 [facility] Comment on above: Performed By: #### L 499.0042 #### [facility] [address] [place], [address] L501.4021on 12-19-2024 Trop T High Sen 6 ng/L Normal <=14 [facility] Comment on above: Order Comment: *ADD ON* Performed By: #### L 100.0100, L501.4021 #### [facility] [address] [place], [address] l503.7505on 12-19-2024 proBNP < 36 Normal <=450 [facility] Comment on above: Result Comment: Hear t Failure Unlikely: < 300 pg/mL Heart Failure Likely < 50 Years: > 450 pg/mL 50-75 Years: > 900 pg/mL >75 Years: > 1800 pg/mL Performed By: #### L 500.2500, L503.7509 #### [facility] [address] [place], [place], [address] MCV (mean corpuscular volume ) determinationOrdered By: Jaime Saenz on 12-19-2024 MCV (RBC) [Entitic vol] 85.1 fL 81-99 [facility] Mean corpuscular hemoglobin (MCH) determinationOrdered By: Jaime Saenz on 12-19-2024 MCH (RBC) [Entitic mass] 30.4 pg 27.0-32.0 [facility] Mean corpuscular hemoglobin concentration (MCHC) determinationOrdered By: Jaime Dany on 12-19-2024 MCHC (RBC) [Mass/Vol] 35.7 g/dL 32-36 [facility] Mean platelet volume determi nationOrdered By: Jaime Saenz on 12-19-2024 Platelet mean volume (Bld) [Entitic vol] 9.0 fL 6.2-12.0 [facility] Monocyte percentageOrdered B y: Jaime Saenz on 12-19-2024 Monocytes/100 WBC (Bld) 6.6 % 0-10 [facility] Natriuretic peptide.B prohor mireya N-Terminal [Mass/volume] in Serum or PlasmaOrdered By: Jaime Saenz on 12-19-2024 Natriuretic peptide.B prohormone N-Terminal [Mass/Vol] < 36 pg/mL <450 [facility] Comment on above: Heart Failure Unlike ly: < 300 pg/mLHeart Failure Likely< 50 Years: > 450 pg/mL50-75 Years: > 900 pg/mL>75 Years: > 1800 pg/mL Neutrophil percentageOrdered By: Jaime Saenz on 12-19-2024 Neutrophils/100 WBC (Bld) 53.9 % 47-70 [facility] Nucleated red blood cell per centageOrdered By: Jaime Saenz on 12-19-2024 Nucleated RBC/100 WBC (Bld) [Ratio] 0 % 0-5 [facility] Platelet countOrdered By: Fly Saenz on 12-19-2024 Platelets (Bld) [#/Vol] 285 10*3/uL 150-450 [facility] Potassium measurement (mass/ volume)Ordered By: Jaime Saenz on 12-19-2024 Potassium (Unsp spec) [Mass/Vol] 3.5 mmol/L 3.3-5.1 [facility] RBC Auto (Bld) [#/Vol]Ordere d By: Jaime Saenz on 12-19-2024 RBC (Bld) [#/Vol] 4.77 10*6/uL 4.2-5.4 [facility] Serum creatinine measurement (mass/volume)Ordered By: Jaime Saenz on 12-19-2024 Creatinine [Mass/Vol] 0.92 mg/dL 0.70-1.20 [facility] Serum glucose measurement (m ass/volume)Ordered By: Jaime Saenz on 12-19-2024 Glucose [Mass/Vol] 87 mg/dL 70-99 [facility] Serum or plasma calcium sruthi urement (mass/volume)Ordered By: Jaime Ascencio on 12-19-2024 Calcium [Mass/Vol] 9.5 mg/dL 7.6-11.0 [facility] Serum or plasma urea nitroge n measurement (mass/volume)Ordered By: Jaime Saenz on 12-19-2024 Urea nitrogen [Mass/Vol] 14 mg/dL 4-19 [facility] Sodium levelOrdered By: Franck Saenz on 12-19-2024 Sodium [Moles/Vol] 140 mmol/L 133-145 [facility] Troponin T.cardiac [Mass/vol ume] in Serum or Plasma by High sensitivity methodOrdered By: Jaime Saenz on 12-19-2024 Troponin T.cardiac High sensitivity method [Mass/Vol] < 6 ng/L <14 [facility] Troponin T.cardiac High sensitivity method [Mass/Vol] 6 ng/L <14 [facility] White blood cell (WBC) count Ordered By: Jaime Saenz on 12-19-2024 WBC (Bld) [#/Vol] 8.6 10*3/uL 4.4-11.0 [facility] BONE WHOLE BODYon 025 CA BONE WHOLE BODY * * *Final Report* * * DATE OF EXAM: Dec 06 2024 3:50PM WON 0014 - CA BONE WHOLE BODY / PROCEDURE REASON: Malignant [...] IMPRESSION: No scintigraphic evidence of osteoblastic metastasis. Railroad Car Inspector: TIANA Transcribe Date/Time: Dec 06 2024 5:49P Dictated by : TURNER NORIEGA MD This examination was interpreted and the report reviewed and electronically signed by: TURNER NORIEGA MD on Dec 06 2024 5:51PM EST [id number] Normal [facility] Whole body Bone Viewson 0 12-06-2024 IMPRESSION: No scintigraphic evidence of osteoblastic metastasis. Railroad Car Inspector: TIANA Transcribe Date/Time: Dec 06 2024 5:49P Dictated by : TURNER NORIEGA MD This examination was interpreted and the report reviewed and electronically signed by: TURNER NORIEGA MD on Dec 06 2024 5:51PM [facility] DIVISION OF RADIOLOGY * * *Final Report* [...] bladder uptake confirmed. DIVISION OF RADIOLOGY Provider, [facility] - 12/06/2024 * * *Final Report* * [...] IMPRESSION: No scintigraphic evidence of osteoblastic metastasis. Railroad Car Inspector: TIANA Transcribe Date/Time: Dec 06 2024 5:49P Dictated by : TURNER NORIEGA MD This examination was interpreted and the report reviewed and electronically signed by: TURNER NORIEGA MD on Apr 18 2025 5:51PM [facility] Radiology Study observation (narrative) Kelly singleton [facility] Whole body Bone ViewsOrde red By: Ccf Provider on 12-06-2024 [facility] Carmen 12-05-2024 SILVINO Telephone (KUSH) MARGO VALERO ([id number]) 1985 F Date Time Provider Department 12/05/24 ROSS MARION During your visit today, we recorded the following information about you: Larissa Tang LPN 12/05/2024 12:29 PM Signed engineering technician parking called. Patient is allergic to Iodine- hives/swelling. CT orders updated to WO IV or Oral contrast. Please file new orders. ERIKA Lawrence Melanie, LPN 12/05/2024 4:04 PM Addendum PSS- patient needs to be scheduled at [facility] for her CT C/A/P d/t iodine listed as an allergy with hives/swelling. Please contact her to schedule at [place]. Dr. Marion sent in a prednisone prep. [...] Encounter Status:Closed by NEDA CHANDRA on 12/06/24 [facility] CNOVSPon 11-26-2024 CNOVS Visit (SP) Office (KUSH) MARGO VALERO ([id number]) 1985 F Date Time Provider Department 11/26/24 [...] 05/01/2015. 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 Genetic testing revealed that she was BRCA2 positive. She did not receive adjuvant radiation treatment evidently because of delayed healing from surgery which was attributed to chemotherapy. She had undergone hysterectomy and bilateral salpingo-oophorectom y several years previously and was therefore started on anastrozole after surgery. Had permanent implants placed. She was living in [place] but moved to [place] with her in 2016. She was seen [...] needle bx with path showing ER 99% [place] 1% Her 2 1+ Fish non amp Ki 67 17% grade 3 IDC 06/03/[address] sampling with [address] (out of 8), excision bx of primary site with 3 foci of IDC - clinical stage [id number] Neodj ACT completed 09/17/15 10/24/2015 bilateral mastectomy (R therapeutic modified radical mastectomy with ALND and L prophylactic) with napping machine operator - path stage [id number] Germline testing BRCA 2 positive Did not receive adj RT due to delayed healing from surgery (attributed to chemo) (more content not included)... Normal [facility] Carmen 11-26-2024 SILVINO Telephone (KUSH) MARGO VALERO ([id number]) 1985 F Date Time Provider Department 11/26/24 [...] Encounter Status:Closed by LUISA LOPEZ [facility] ([id number]) 1985 F Date Time Provider Department 11/26/24 [...] Encounter Status:Closed by LUX ESCOBAR on 12/01/24 [facility] ([id number]) 1985 F Date Time Provider Department 06/20/24 ROSA MARTINEZ [facility] During your visit today, we recorded the following information about you: Katiuska Garcia RN 06/20/2024 9:00 AM Signed Pt called in and reports she was seen in on 06/19/24. She states the provider told her she would call in a steroid and a cough suppressant to [facility] in [place]. Please call and advise Pt. I told [...] Encounter Status:Closed by ARLETTE ANGULO on 06/20/24 [facility] Jesus 06-19-2024 CNOV Office Visit (UCWSTR) MARGO VALERO ([id number]) 1985 F Date Time Provider Department 06/19/24 5:00 PM ROSA MARTINEZ [facility] During your visit today, we recorded the following information about you: Temperature Pulse Respiration Blood pressure 98.7 degrees 96/minute 16/minute 128/82 Weight 106.7 kg Rosa Martinez PA 06/19/2024 6:46 PM Signed This note was created using [employer]. Subjective Margo Valero is a 38 year [...] [Povidone-Iodine], Z Yvrose [Azithromycin], Beef Containing Products, Lawrence, Iodine, and Skin Cleanser MEDICATIONS buPROPion XL [...] Cmt: cou (more content not included)... [facility] (UCWSTR) MARGO VALERO ([id number]) 1985 F Date Time Provider Department 06/19/24 TERI THORNTON [facility] During your visit today, we recorded the following information about you: Teri Thornton APRN.[facility] 06/19/2024 8:02 PM Signed Xray reveals [...] Status:Closed by TERI THORNTON on 06/19/24 Normal [facility] XR CHEST 2V FRONTAL/LATon XR [...] soft tissues: Unremarkable. IMPRESSION: Right infrahilar atelectasis. Railroad Car Inspector: TIANA Transcribe Date/Time: Jun 19 2024 7:33P Dictated by : SISSY DIEGO MD This examination was interpreted and the report reviewed and electronically signed by: SISSY DIEGO MD on Jun 19 2024 7:33PM EST [id number] Normal [facility] XR Chest PA and Lateralon IMPRESSION: Right infrahilar atelectasis. Railroad Car Inspector: PSCB Transcribe Date/Time: Jun 19 2024 7:33P [...] soft tissues: Unremarkable. DIVISION OF RADIOLOGY Provider, [facility] [place] - 06/19/2024 * * *Final Report* * [...] tissues: Unremarkable. IMPRESSION IMPRESSION: Right infrahilar atelectasis. Railroad Car Inspector: PSCB Transcribe Date/Time: Jun 19 2024 7:33P Dictated by : SISSY DIEGO MD This examination was interpreted and the report reviewed and electronically signed by: SISSY DIEGO MD on Jun 19 2024 7:33PM EST [facility] Radiology Study observation (narrative) Kelly singleton [facility] XR Chest PA and LateralOrder ed By: Ccf Provider on 06-19-2024 [facility] Gram stain for investigation of transfusion reactionOrdered By: Eric Najera on 11-03-2023 Microscopic observation Gram stain Nom (Unsp spec) [facility] Routine wound cultureOrdered By: Eric Najera on 11-03-2023 Bacteria identified Cx Nom (Wound) No growth aerobically. [facility] Absolute lymphocyte countOrd ered By: Vicky Morales on 01-30-2023 Lymphocytes Auto (Unsp spec) [#/Vol] 2.35 10*3/uL 0.83-4.51 [facility] Basophil percentageOrdered B y: Vicky Morales on 01-30-2023 Basophils/100 WBC (Bld) 0.7 % 0-1 [facility] Bilirubin [Mass/Vol] 0.50 mg/dL 0.20-1.00 [facility] Comment on above: For patients on eltr ombopag therapy, use of Dimension [place] TBIL is not recommended. Chloride [Moles/Vol] 107 mmol/L 98-107 [facility] Eosinophils/100 WBC (Bld) 1.6 % 0-5 [facility] Glucose [Mass/Vol] 92 mg/dL 74-106 [facility] Neutrophils (Bld) [#/Vol] 3.2 10*3/uL 2.0-7.7 [facility] Neutrophils/100 WBC (Bld) 52.2 % 47-70 [facility] Potassium [Moles/Vol] 3.9 mmol/L 3.5-5.1 [facility] Protein [Mass/Vol] 7.2 g/dL 6.4-8.2 [facility] Sodium [Moles/Vol] 138 mmol/L 136-145 [facility] WBC (Bld) [#/Vol] 6.1 10*3/uL 4.4-11.0 [facility] Blood erythrocytes count (nu mber/volume)Ordered By: Vicky Morales on 01-30-2023 RBC (Bld) [#/Vol] 5.22 10*6/uL 4.2-5.4 [facility] Blood hemoglobin measurement (mass/volume)Ordered By: Vicky Morales on 01-30-2023 Hemoglobin (Bld) [Mass/Vol] 14.8 g/dL 12.0-15.0 [facility] Blood lymphocytes/100 leukoc ytesOrdered By: Vicky Morales on 01-30-2023 Lymphocytes/100 WBC (Bld) 38.6 % 19-41 [facility] Blood monocytes/100 leukocyt esOrdered By: Vicky Morales on 01-30-2023 Monocytes/100 WBC (Bld) 6.6 % 0-10 [facility] Blood platelet mean volumeOr dered By: Vicky Morales on 01-30-2023 Platelet mean volume (Bld) [Entitic vol] 9.3 fL 6.2-12.0 [facility] Determination of erythrocyte mean corpuscular volume (MCV)Ordered By: Vicky Morales on 01-30-2023 MCV (RBC) [Entitic vol] 84.7 fL 81-99 [facility] Hematocrit Auto (Bld) [Volum e fraction]Ordered By: Vicky Morales on 01-30-2023 Hematocrit (Bld) [Volume fraction] 44.2 % 37-47 [facility] - Chemistry and C hemistry - challengeOrdered By: Vicky Morales on 01-30-2023 ALP [Catalytic activity/Vol] 88 U/L 45-117 [facility] ALT [Catalytic activity/Vol] 27 U/L 13-56 [facility] CO2 [Moles/Vol] 23.0 mmol/L 21.0-32.0 [facility] Globulin (S) [Mass/Vol] 3.6 g/dL 2.2-4.2 [facility] Urea nitrogen/Creatinine [Mass ratio] 13.9 mg/mg 10-20 [facility] - Hematology and Cell countsOrdered By: Vicky Morales on 01-30-2023 Erythrocyte distribution width (RBC) [Entitic vol] 38.5 fL 35.1-43.9 [facility] Erythrocyte distribution width (RBC) [Ratio] 12.6 % 11.6-14.6 [facility] Immature granulocytes/100 WBC (Bld) 0.300 % 0.0-0.9 [facility] Comment on above: IG% - Immature Granu locytes (promyelocytes, myelocytes and metamyelocytes) > 1% indicates that a LEFT SHIFT is Present. MCH (RBC) [Entitic mass] 28.4 pg 27.0-32.0 [facility] Nucleated RBC/100 WBC (Bld) [Ratio] 0 % 0-5 [facility] Auto (RBC) [Mass/Vol]Or dered By: Vicky Morales on 01-30-2023 MCHC (RBC) [Mass/Vol] 33.5 g/dL 32-36 [facility] No Panel InformationOrdered By: Vicky Morales on 01-30-2023 Estimated GFR (MDRD) Amer 79 mL/min >60 [facility] Comment on above: GFR Calc Estimated GFR (MDRD) Non-Af Amer 65 mL/min >60 [facility] Comment on above: Non- GFR Calc Thyroid Stimulating Hormone (TSH) 1.29 uIU/mL 0.358-3.74 [facility] Platelets bldOrdered By: Bonnie Morales on 01-30-2023 Platelets (Bld) [#/Vol] 279 10*3/uL 150-450 [facility] Serum or plasma albumin sruthi urement (mass/volume)Ordered By: Vicky Morales on 01-30-2023 Albumin [Mass/Vol] 3.6 g/dL 3.2-5.0 [facility] Serum or plasma albumin/glob ulin mass ratioOrdered By: Vicky Morales on 01-30-2023 Albumin/Globulin [Mass ratio] 1.0 {ratio} 0.9-2.4 [facility] Serum or plasma calcium sruthi urement (mass/volume)Ordered By: Vicky Morales on 01-30-2023 Calcium [Mass/Vol] 9.5 mg/dL 8.5-10.1 [facility] Serum or plasma creatinine m easurement (mass/volume)Ordered By: Vicky Morales on 01-30-2023 Creatinine [Mass/Vol] 1.01 mg/dL 0.55-1.02 [facility] Comment on above: The validity of the calculated GFR & GFRAA in patients over 70 years has not been determined. Clinical correlation is essential. Serum or plasma ferritin andrey surement (mass/volume)Ordered By: Vicky Morales on 01-30-2023 Ferritin [Mass/Vol] 56 ng/mL 8-252 [facility] Serum or plasma urea nitroge n measurement (mass/volume)Ordered By: Vicky Morales on 01-30-2023 Urea nitrogen [Mass/Vol] 14 mg/dL 7-18 [facility] Thin prep Papanicolaou smear with manual screeningOrdered By: Vicky Morales on 01-30-2023 Thin prep Papanicolaou smear with manual screening 15 U/L 15-37 [facility] Thin prep Papanicolaou smear with manual screening 8 5-15 [facility] CBC W Auto Differential pane l (Bld)on 06-21-2022 Erythrocyte distribution width (RBC) [Ratio] 12.0 % 11.5 - 15.0 % [facility] Hematocrit (Bld) [Volume fraction] 43.0 % 36.0 - 46.0 % [facility] Hemoglobin (Bld) [Mass/Vol] 14.9 g/dL 11.5 - 15.5 g/dL [facility] Immature granulocytes (Bld) [#/Vol] 0.03 10*3/uL <0.10 k/uL [facility] MCH (RBC) [Entitic mass] 29.0 pg 26.0 - 34.0 pg [facility] MCHC (RBC) [Mass/Vol] 34.7 g/dL 30.5 - 36.0 g/dL [facility] MCV (RBC) [Entitic vol] 83.7 fL 80.0 - 100.0 fL [facility] Neutrophils (Bld) [#/Vol] 4.92 10*3/uL 1.45 - 7.50 k/uL [facility] Nucleated RBC (Bld) [#/Vol] <0.01 k/uL [facility] Platelet mean volume (Bld) [Entitic vol] 8.8 fL Low 9.0 - 12.7 fL [facility] Platelets (Bld) [#/Vol] 330 10*3/uL 150 - 400 k/uL [facility] RBC (Bld) [#/Vol] 5.14 10*6/uL 3.90 - 5.2 0 m/uL [facility] WBC (Bld) [#/Vol] 9.33 10*3/uL 3.70 - 11.00 k/uL [facility] Comprehensive metabolic 2000 panelon 06-21-2022 Albumin [Mass/Vol] 4.1 g/dL 3.9 - 4.9 g/dL [facility] ALP [Catalytic activity/Vol] 102 U/L 34 - 123 U/L [facility] ALT [Catalytic activity/Vol] 20 U/L 7 - 38 U/L [facility] Anion gap [Moles/Vol] 8 mmol/L Low 9 - 18 mmol/L [facility] AST [Catalytic activity/Vol] 18 U/L 13 - 35 U/L [facility] Bilirubin [Mass/Vol] 0.3 mg/dL 0.2 - 1 .3 mg/dL [facility] Calcium [Mass/Vol] 9.8 mg/dL 8.5 - 10. 2 mg/dL [facility] Chloride [Moles/Vol] 105 mmol/L 97 - 10 5 mmol/L [facility] CO2 [Moles/Vol] 28 mmol/L 22 - 30 mmol/L [facility] Creatinine [Mass/Vol] 0.83 mg/dL 0.58 - 0.96 mg/dL [facility] Estimated Glomerular Filtration Rate 94 mL/min/1.73m >=60 mL/min/1.73 m [facility] Glucose [Mass/Vol] 91 mg/dL 74 - 99 mg/dL [facility] Potassium [Moles/Vol] 4.4 mmol/L 3.7 - 5.1 mmol/L [facility] Protein [Mass/Vol] 7.3 g/dL 6.3 - 8.0 g/dL [facility] Sodium [Moles/Vol] 141 mmol/L 136 - 144 mmol/L [facility] Urea nitrogen [Mass/Vol] 10 mg/dL 7 - 21 mg/dL [facility] Office Visit: recheck chest wass masseson 03-31-2017 Dietary management education, guidance, and counseling (procedure) yes Invalid Interpretation Code [facility] Work Phone: Documentation of current medications (procedure) Done Invalid Interpretation Code [facility] Work Phone: Tobacco smoking status NHIS Never Invalid Interpretation Code [facility] Work Phone: Tobacco use [facility] Never smoker Invalid Interpretation Code [facility] Work Phone: .Urinalysis Microscopic (AO) on 03-26-2017 UA Squam Epithelial None Seen Normal None Seen [facility] ([place]) Comment on above: Performed By: #### U A, UAMICAO, PREGU ####[address] [place], [place] [address] UA WBC None Seen Normal None Seen [facility] ([place]) Comment on above: Performed By: #### U LUIS Sharma PREGU ####[id number] [place], [place] [address] Urine, erythrocytes None Seen Normal None Seen [facility] ([place]) Comment on above: Performed By: #### U A, LUIS, PREGU ####[address] [place], [place] [address] CT ABDOMEN/PELVIS W/O CONTRA STon 03-26-2017 CT [...] Date: 03/26/2017 12:19:31 AM Normal [facility] ([place]) [facility] Note on 03-26-2017 [facility] Note Normal [facility] ([place] PREGUon 03-26-2017 HCG ( test) Ql (U) Negative Normal [facility] ([place]) Comment on above: Performed By: #### U A, UAMICAO, PREGU ####[address] [place] [address] test (u) int HCG not detected. Invalid Interpretation Code [facility] ([place]) Comment on above: Performed By: #### U A, UAMICAO, PREGU ####[address] [place] [address] Patient Summary Documentson 03-26-2017 Patient Summary Documents Normal [facility] ([place]) UAon 03-26-2017 UA Appear CLEAR Normal [facility] ([place]) Comment on above: Performed By: #### U A, UAMICAO, PREGU ####[address] [place] [address] UA Blood Negative [facility] ([place]) Comment on above: Performed By: #### U A, UAMICAO, PREGU ####[address] [place] [address] UA Leuk Est Negative [facility] ([place]) Comment on above: Performed By: #### U A, UAMICAO, PREGU ####[address] [place] [address] UA Nitrite Negative [facility] ([place]) Comment on above: Performed By: #### U A, UAMICAO, PREGU ####[address] [place] [address] UA pH 6.0 [facility] ([place]) Comment on above: Performed By: #### U A, UAMICAO, PREGU ####[address] [place] [address] UA Protein Negative [facility] ([place]) Comment on above: Performed By: #### U A, UAMICAO, PREGU ####[address] [place], [place] [address] UA Spec Grav 1.025 Normal [facility] ([place]) Comment on above: Performed By: #### U A, UAMICAO, PREGU ####[id number] [place], [place] [address] UA Specimen Type Clean Catch Normal [facility] ([place]) Comment on above: Performed By: #### U A, UAMICAO, PREGU ####[address] [place], [place] [address] UA Urobilinogen 1.0 E.U./dL [facility] ([place]) Comment on above: Performed By: #### U A, UAMICAO, PREGU ####[address] [place], [place] [address] Urine, color YELLOW Normal [facility] ([place]) Comment on above: Performed By: #### U A, UAMICAO, PREGU ####[address] [place], [place] [address] Urine, glucose Negative Normal Pending sale to [facility] ([place]) Comment on above: Performed By: #### U A, UAMICAO, PREGU ####[address] [place], [place] [address] Urine, ketones presence TRACE Normal A [facility] ([place]) Comment on above: Performed By: #### U A, UAMICAO, PREGU ####[address] [place], [place] [address] Urine, urobilinogen Negative Normal [facility] ([place]) Comment on above: Performed By: #### U A, UAMICAO, PREGU ####[id number] [place], [place] [address] Office Visit: Right breast m ass hx of BRCA, right breast canceron 03-09-2017 Fall risk assessment No Invalid Interpretation Code [facility] Work Phone: Protein mass conc Done [facility] Work Phone: Tobacco smoking status NHIS Never [facility] Work Phone: Tobacco smoking status NHIS Never smoker [facility] Work Phone: Office Visiton 01-25-2017 Documentation of current medications (procedure) Done Invalid Interpretation Code [facility] Work Phone: Protein [facility] conc [facility] Work Phone: Tobacco smoking status NHIS Never [facility] Work Phone: Tobacco smoking status NHIS Never smoker [facility] Work Phone: Tobacco use [facility] Never smoker Invalid Interpretation Code [facility] Work Phone: Office Visit: Right breast m ass hx of BRCA, right breast canceron 04-29-2015 MG Breast screening Abnormal Bilateral Invalid Interpretation Code [facility] Work Phone: Vital Signs Date Time Vital Sign Value Performing Clinician Facility 03-07-2025 13:55-0400 Diastolic blood pressure 89 mm[Hg] Dr. Rachelle Esparza MD Work Phone: [facility] 03-07-2025 13:55-0400 Heart rate 106 /min Dr. Rachelle Esparza MD Work Phone: [facility] 03-07-2025 13:55-0400 Respiratory rate 18 /min Dr. Rachelle Esparza MD Work Phone: [facility] 03-07-2025 13:55-0400 SaO2% (BldA) [Mass fraction] 96 % Dr. Rachelle Esparza MD Work Phone: [facility] 03-07-2025 13:55-0400 Systolic blood pressure 128 mm[Hg] Dr. Rachelle Esparza MD Work Phone: [facility] 02-07-2025 14:16-0400 Diastolic blood pressure 93 mm[Hg] Dr. Rachelle Esparza MD Work Phone: [facility] 02-07-2025 14:16-0400 Heart rate 81 /min Dr. Rachelle Esparza MD Work Phone: 2(820)236-335599 [place] [address] 02-07-2025 14:16-0400 Respiratory rate 18 /min Dr. Rachelle Esparza MD Work Phone: 6(728)522-867300 [place] [address] 02-07-2025 14:16-0400 SaO2% (BldA) [Mass fraction] 98 % Dr. Rachelle Esparza MD Work Phone: 1(784)534-796200 [place] [address] 02-07-2025 14:16-0400 Systolic blood pressure 129 mm[Hg] Dr. Rachelle Esparza MD Work Phone: 3(449)561-535300 [place] [address] 01-08-2025 15:50-0400 Body height 160.[address] Rachelle Esparza MD Work Phone: 7(663)755-368000 [place] [address] 12-20-2024 00:38-0400 Body temperature 98 [degF] Dr. Rachelle Esparza MD Work Phone: 7(179)867-062500 [place] [address] 12-20-2024 00:38-0400 Diastolic blood pressure 100 mm[Hg] Dr. Rachelle Esparza MD Work Phone: 6(444)186-134100 [place] [address] 12-20-2024 00:38-0400 Heart rate 80 /min Dr. Rachelle Esparza MD Work Phone: 3(680)945-549600 [place] [address] 12-20-2024 00:38-0400 Respiratory rate 18 /min Dr. Rachelle Esparza MD Work Phone: 2(897)271-250600 [place] [address] 12-20-2024 00:38-0400 SaO2% (BldA) [Mass fraction] 97 % Dr. Rachelle Esparza MD Work Phone: 1(690)357-616600 [place] [address] 12-20-2024 00:38-0400 Systolic blood pressure 144 mm[Hg] Dr. Rachelle Esparza MD Work Phone: 0(993)183-951400 [place] [address] 12-19-2024 20:43-0400 Body mass index (BMI) [Ratio] 41.4 kg/m2 Dr. Rachelle Esparza MD Work Phone: 2(906)235-795000 [place] [address] 12-19-2024 20:43-0400 Body weight 106.[address] Rachelle Esparza MD Work Phone: [facility] 11-26-2024 16:06-0400 Body height 161.9 cm Ross Geniei DO Work Phone: [facility] 11-26-2024 16:06-0400 Body mass index (BMI) [Ratio] 40.48 kg/m2 Ross Masci DO Work Phone: [facility] 11-26-2024 16:06-0400 Body temperature 98.8 [degF] Ross Masci DO Work Phone: [facility] 11-26-2024 16:06-0400 Body weight 106.14 kg Ross Masci DO Work Phone: [facility] 11-26-2024 16:06-0400 Diastolic blood pressure 89 mm[Hg] Ross Masci DO Work Phone: [facility] 11-26-2024 16:06-0400 Heart rate 81 /min Ross Masci DO Work Phone: [facility] 11-26-2024 16:06-0400 SaO2% (BldA) [Mass fraction] 99 % Ross Masci DO Work Phone: [facility] 11-26-2024 16:06-0400 Systolic blood pressure 148 mm[Hg] Ross Masci DO Work Phone: [facility] 06-19-2024 16:59-0400 Body mass index (BMI) [Ratio] 39.43 kg/m2 Krislyn Aberegg PA Work Phone: [facility] 06-19-2024 16:59-0400 Body temperature 98.71 [degF] Krislyn Aberegg PA Work Phone: [facility] 06-19-2024 16:59-0400 Body weight 106.7 kg Krislyn Aberegg PA Work Phone: [facility] 06-19-2024 16:59-0400 Diastolic blood pressure 82 mm[Hg] Krislyn Aberegg PA Work Phone: [facility] 06-19-2024 16:59-0400 Heart rate 96 /min Krislyn Aberegg PA Work Phone: [facility] 06-19-2024 16:59-0400 Respiratory rate 16 /min Krislyn Aberegg PA Work Phone: [facility] 06-19-2024 16:59-0400 SaO2% (BldA) [Mass fraction] 98 % Krislyn Aberegg PA Work Phone: [facility] 06-19-2024 16:59-0400 Systolic blood pressure 128 mm[Hg] Krislyn Aberegg PA Work Phone: [facility] 11-03-2023 14:28-0400 Body height 160.02 cm DO Vicky Carmen Work Phone: [facility] 11-03-2023 14:28-0400 Body mass index (BMI) [Ratio] 38.9 kg/m2 DO Vicky Carmen Work Phone: [facility] 11-03-2023 14:28-0400 Body temperature 98.6 [degF] DO Vicky Carmen Work Phone: [facility] 11-03-2023 14:28-0400 Body weight 99.79 kg DO Vicky Carmen Work Phone: [facility] 11-03-2023 14:28-0400 Diastolic blood pressure 86 mm[Hg] DO Vicky Carmen Work Phone: [facility] 11-03-2023 14:28-0400 Heart rate 83 /min DO Vicky Carmen Work Phone: [facility] 11-03-2023 14:28-0400 Respiratory rate 16 /min DO Vicky Carmen Work Phone: [facility] 11-03-2023 14:28-0400 SaO2% (BldA) [Mass fraction] 99 % DO Vicky Carmen Work Phone: [facility] 11-03-2023 14:28-0400 Systolic blood pressure 124 mm[Hg] DO Vicky Morales Work Phone: [facility] 12-30-2022 07:59-0400 Body height 160.02 cm DO Vicky Morales Work Phone: [facility] 12-30-2022 07:59-0400 Body mass index (BMI) [Ratio] 39.6 kg/m2 DO Vicky Morales Work Phone: [facility] 12-30-2022 07:59-0400 Body weight 101.6 kg DO Vicky Morales Work Phone: [facility] 12-25-2022 22:06-0400 Diastolic blood pressure 94 mm[Hg] [facility] 12-25-2022 22:06-0400 Systolic blood pressure 139 mm[Hg] [facility] 12-25-2022 20:25-0400 Body height 160.02 cm [facility] 12-25-2022 20:25-0400 Body mass index (BMI) [Ratio] 40.6 kg/m2 [facility] 12-25-2022 20:25-0400 Body temperature 97.4 [degF] [facility] 12-25-2022 20:25-0400 Body weight 104.09 kg [facility] 12-25-2022 20:25-0400 Heart rate 89 /min [facility] 12-25-2022 20:25-0400 Respiratory rate 16 /min [facility] 12-25-2022 20:25-0400 SaO2% (BldA) [Mass fraction] 99 % [facility] 06-21-2022 09:52-0400 Body height 164.5 cm Arpita Roca MD Work Phone: [facility] 06-21-2022 09:52-0400 Body temperature 98.29 [degF] Arpita Roca MD Work Phone: [facility] 06-21-2022 09:52-0400 Body weight 130.77 kg Arpita Roca MD Work Phone: [facility] 06-21-2022 09:52-0400 Diastolic blood pressure 98 mm[Hg] Arpita Roca MD Work Phone: [facility] 06-21-2022 09:52-0400 Heart rate 89 /min Arpita Roca MD Work Phone: [facility] 06-21-2022 09:52-0400 Respiratory rate 20 /min Arpita Roca MD Work Phone: [facility] 06-21-2022 09:52-0400 SaO2% (BldA) [Mass fraction] 98 % Arpita Roca MD Work Phone: [facility] 06-21-2022 09:52-0400 Systolic blood pressure 149 mm[Hg] Arpita Roca MD Work Phone: [facility] 04-09-2022 16:20-0400 Body height 160.02 cm [facility] Work Phone: 04-09-2022 16:20-0400 Body mass index (BMI) [Ratio] 51.5 kg/m2 [facility] Work Phone: 04-09-2022 16:20-0400 Body temperature 96.8 [degF] [facility] Work Phone: 04-09-2022 16:20-0400 Body weight 132.1 kg [facility] Work Phone: 04-09-2022 16:20-0400 Diastolic blood pressure 104 mm[Hg] [facility] Work Phone: 04-09-2022 16:20-0400 Heart rate 81 /min [facility] Work Phone: 04-09-2022 16:20-0400 Respiratory rate 16 /min [facility] Work Phone: 04-09-2022 16:20-0400 SaO2% (BldA) [Mass fraction] 97 % [facility] Work Phone: 04-09-2022 16:20-0400 Systolic blood pressure 154 mm[Hg] [facility] Work Phone: 01-11-2022 16:22-0400 Body height 160 cm CARMENZA GARIBAY DO [facility] 01-11-2022 16:22-0400 Body temperature 97.52 [degF] CARMENZA GARIBAY DO [facility] 01-11-2022 16:22-0400 Body weight 109.1 kg CARMENZA GARIBAY DO [facility] 01-11-2022 16:22-0400 Diastolic blood pressure 66 mm[Hg] CARMENZA GARIBAY DO [facility] 01-11-2022 16:22-0400 Heart rate 77 /min CARMENZA GARIBAY DO [facility] 01-11-2022 16:22-0400 Respiratory rate 20 /min CARMENZA GARIBAY DO [facility] 01-11-2022 16:22-0400 Systolic blood pressure 139 mm[Hg] CARMENZA GARIBAY DO [facility] 03-31-2017 09:57-0400 BMI (Body Mass Index) 44.81 kg/m2 Monika Partida MD [facility] Work Phone: 03-31-2017 09:57-0400 Height 160.02 cm Monika Partida MD [facility] Work Phone: 03-31-2017 09:57-0400 Respiratory Rate 16 /min Monika Partida MD [facility] Work Phone: 03-31-2017 09:57-0400 Weight 114.76 kg Monika Partida MD [facility] Work Phone: 03-09-2017 10:54-0400 BMI (Body Mass Index) 44.99 kg/m2 Monika Partida MD [facility] Work Phone: 03-09-2017 10:54-0400 Body Temperature 97.9 [degF] Monika Partida MD [facility] Work Phone: 03-09-2017 10:54-0400 Height 160.02 cm Monika Partida MD [facility] Work Phone: 03-09-2017 10:54-0400 Pulse (Heart Rate) 80 /min Monika Partida MD [facility] Work Phone: 03-09-2017 10:54-0400 Respiratory Rate 18 /min Monika Partida MD [facility] Work Phone: 03-09-2017 10:54-0400 Weight 115.21 kg Monika Partida MD [facility] Work Phone: 01-25-2017 14:55-0400 BMI (Body Mass Index) 40.74 kg/m2 [facility] Work Phone: 01-25-2017 14:55-0400 Height 160.02 cm [facility] Work Phone: 01-25-2017 14:55-0400 Weight 104.33 kg [facility] Work Phone: Encounters Encounter Date Encounter Type Care Provider Facility Start: 03-07-2025 End: 03-07-[address] Elliot Stiles MD [facility] Work Phone: Start: 03-07-2025 End: 03-07-[address] Rachelle Esparza MD Work Phone: [facility] Start: 03-05-2025 End: 03-10-2025 Telephone encounter Ross Marion DO Work Phone: Hematology/Oncology Start: 02-26-2025 ambulatory Elliot Stiles Facility:[facility] Start: 02-13-2025 End: 02-13-[address] Rachelle Esparza MD Work Phone: [facility] Start: 02-13-2025 End: 02-13-[address] Elliot Stiles MD [facility] Work Phone: Start: 02-13-2025 End: 02-13-2025 ambulatory [facility] Facility:[facility] Start: 02-07-2025 End: 02-07-[address] Elliot Stiles MD [facility] Work Phone: Start: 02-07-2025 End: 02-07-[address] Rachelle Esparza MD Work Phone: [facility] Work Phone: Start: 02-06-2025 ambulatory ROSS MARION Facility:[facility] Start: 02-06-2025 End: 02-06-2025 Subsequent hospital visit by physician [facility] Radiology Comment on above: Malignant neoplasm o f upper-outer quadrant of right breast in female, estrogen receptor positive (HCC) [C50.411, Z17.0] Start: 01-23-2025 End: 01-23-[address] Elliot Stiles MD [facility] Work Phone: Start: 01-23-2025 End: 01-23-[address] Rachelle Esparza MD Work Phone: [facility] Work Phone: Start: 01-21-2025 End: 02-12-2025 Telephone encounter Ross Marion DO Work Phone: Hematology/Oncology Comment on above: Appointment; Patient Question Start: 12-19-2024 End: 12-20-2024 Emergency department patient visit Dr. Jaime Klusty-Silva DO -Emergency Department Work Phone: Start: 12-06-2024 ambulatory ROSS MARION Facility:[facility] Start: 12-06-2024 End: 12-06-2024 Subsequent hospital visit by physician [facility] Work Phone: Nuclear Medicine Comment on above: Malignant neoplasm o f upper-outer quadrant of right breast in female, estrogen receptor positive (HCC) [C50.411, Z17.0] Start: 12-06-2024 ambulatory ROSS MARION Facility:[facility] Start: 12-06-2024 End: 12-06-2024 Subsequent hospital visit by physician [facility] Work Phone: Nuclear Medicine Comment on [...] Emergency department patient visit Ed Physician Provider Facility:[facility] Start: 06-20-2024 End: 06-20-2024 Telephone encounter Rosa ROSARIO Work Phone: [facility] Comment on above: Medication Problem Start: 06-19-2024 End: 06-19-2024 Subsequent hospital visit by physician Xr [facility] Work Phone: Radiology Comment on above: Acute cough [R05.1] Start: 06-19-2024 End: 06-19-2024 ambulatory RACHELLE ESPARZA Facility:[facility] Start: 06-19-2024 End: 06-19-2024 Patient encounter procedure Rosa ROSARIO Work Phone: [facility] Comment on above: Acute cough (Primary Dx) Start: 06-19-2024 End: 06-19-2024 Telephone encounter Teri Delores CABRERA Work Phone: [facility] Comment on above: Results Start: 11-03-2023 End: 11-03-2023 ambulatory DO Vicky Morales Work Phone: [facility] Work Phone: Start: 11-03-2023 End: 11-03-2023 Patient encounter procedure DO Vicky Morales [facility] Work Phone: Start: 11-03-2023 End: 11-03-2023 Patient encounter procedure DO Vicky Carmen Work Phone: [facility] Work Phone: Start: 01-30-2023 End: 01-30-2023 ambulatory DO Vicky Morales Work Phone: [facility] Work Phone: Start: 01-30-2023 End: 01-30-2023 Patient encounter procedure DO Vickyrichi Obriennger Work Phone: [facility] Start: 12-30-2022 End: 12-30-2022 Patient encounter procedure DO Vicky Morales Work Phone: [facility] Start: 12-25-2022 End: 12-25-2022 Emergency department patient visit [facility] Start: 11-28-2022 ambulatory Poornima styles MD [...] procedure Arpita Roca MD Work Phone: [facility] Start: 04-09-2022 End: 04-09-2022 Emergency department patient visit [facility]Emergency Department Start: 01-11-2022 End: 01-11-2022 Emergency department patient visit CARMENZA Zuniga [place] DO [facility] Start: 03-26-2017 End: 03-26-2017 Emergency [...] Detail Author Start: 03-04-2028 Urine microalbumin profile [facility] Start: 04-21-2025 Influenza vaccination Influenza Vacc ine (#1) [facility] Start: 02-10-2025 End: 02-10-2025 ambulatory 02/10/2025 11:30 AM EDT Visit (SP) Office Hematology/Oncology [address] [facility], [place] [address] Ross Marion, DO [address] [facility] [place], [place] [id number] OV/CT 02/06* Hematology/Oncology Comment on above: OV/CT 02/06* Start: 01-06-2025 End: 01-06-2025 ambulatory 01/06/2025 3:50 PM EDT Visit (SP) Office Hematology/Oncology [address] [place] [address] Ross Marion, DO [address] [facility] [address] OV/CT & NM SCAN 12/06 CT 01/02* Hematology/Oncology Comment on above: OV/CT & NM SCAN 12/06 CT 01/02* Start: 01-02-2025 End: 01-02-2025 Patient encounter procedure Radiology Comment on above: Dx: Malignant neopla sm of upper-outer quadrant of right breast in female, estrogen receptor positive (HCC) [C50.411, Z17.0] Start: 12-20-2024 [facility] Start: 12-19-2024 [facility] Start: 12-11-2024 End: 12-11-2024 ambulatory 12/11/2024 8:50 AM EDT Visit (SP) Office Hematology/Oncology [address] [place] [id number] Ross Marion DO [address] [place] [id number] OV/CT & NM SCAN 12/06* Hematology/Oncology Comment on above: OV/CT & NM SCAN 12/06 * Start: 12-06-2024 End: 12-06-2024 Patient encounter procedure 12/06/2024 3:30 PM EDT Appointment Nuclear Medicine [address] [place], [place] [id number] Dx: Malignant neoplasm of upper-outer quadrant of [...] Start: 11-03-2023 Anaerobic microbial culture Anaerobic Culture [facility] Start: 11-03-2023 Procedure [facility] Start: 11-03-2023 Source specific culture [facility] Start: 04-21-2023 Influenza vaccination INFLUENZ A (Season Ended) [facility] Start: 12-25-2022 Open tx distal phalangeal fracture each TREAT FINGER FRACTURE EACH [facility] Start: 08-21-2022 DEPRESSION ASSESSMENT DEPRESSION ASS ESSMENT [facility] Start: 04-21-2022 Influenza vaccination INFLUENZA (#1) [facility] Start: 10-28-2021 COVID-19 VACCINE (4 - Booster for Pfizer series) COVID-19 VACCINE (4 - Booster for Pfizer series) [facility] Start: 08-21-2021 DEPRESSION ASSESSMENT DEPRESSION ASS ESSMENT [facility] Start: 03-31-2017 End: 03-31-2017 Appointment Appointment [facility] [employer] Work Phone: Start: 03-31-2017 End: 03-31-2017 Follow Up Appt Other Follow Up Appt Other [facility] [employer] Work Phone: Start: 03-09-2017 End: 03-09-2017 Bilirubin (total) MRI Breast bilateral without and/or with contrast material(s) [facility] [employer] Work Phone: Start: 03-09-2017 End: 03-09-2017 Mammogram, both breasts Mammogram, Diagnostic, both breasts [facility] [employer] Work Phone: Start: 03-09-2017 End: 03-09-2017 Mri breast bilateral MRI Breast bilateral without and/or with contrast material(s) [facility] [employer] Work Phone: Start: 03-09-2017 End: 03-09-2017 Oncology Referral Oncology Referral Ross Marion, [facility] [place], [address] [place] [address]., [place], [address] [facility] [employer] Work Phone: Start: 03-09-2017 End: 03-09-2017 Us exam, breast(s) US Breast(s) [facility] [employer] Work Phone: Start: 02-17-2017 End: 02-17-2017 Appointment Appointment [facility] Work Phone: Start: 01-25-2017 End: 01-25-2017 Appointment Appointment [facility] Work Phone: Start: 01-25-2017 End: 06-07-2017 Mri joint upr extrem w/o dye MRI Joint Upper Extremity [facility] Work Phone: Start: 01-25-2017 End: 01-25-2017 X-ray exam of [facility] Work Phone: Start: 2015 HPV TESTING HPV TESTING [facility] Start: 2006 PAP TESTING PAP TESTING [facility] Start: 2006 Screening for malign ant neoplasm of cervix Cervical Cancer Screening [facility] Start: 2004 Hepatitis B Vaccine (1 of 3 - 19+ 3-dose series) Hepatitis B Vaccine (1 of 3 - 19+ 3-dose series) [facility] Start: 2003 Anxiety Screening Anxiety Screening [facility] Start: 2003 Depression Screening Depression Scre ening [facility] Start: 2003 HEPATITIS C SCREENING HEPATITIS C [facility] Start: 2003 Hepatitis C screening Hepatitis C [facility] Start: 2003 HIV SCREENING HIV SCREENING [facility] Start: 2003 HIV screening HIV Screening [facility] Start: 1985 HEPATITIS B (1 of 3 - 3-dose series) HEPATITIS B (1 of 3 - 3-dose series) [facility] End: 07-21-2023 Bone &/joint imaging whole body NM BONE WHOLE BODY Radiology Routine Acute right-sided low back pain with sciatica, sciatica laterality unspecified 1 Occurrences starting 06/21/2022 until 07/21/2023 [facility] Work Phone: Comment on above: 1 Occurrences starti ng 06/21/2022 until 07/21/2023 End: 12-26-2025 CT Abdomen and Pelvis W contrast IV CT ABD/PEL W IVCON Radiology Routine Malignant neoplasm of upper-outer quadrant of right breast in female, estrogen receptor positive (HCC) 1 Occurrences starting 11/26/2024 until 12/26/2025 [facility] Work Phone: Comment on above: 1 Occurrences starti ng 11/26/2024 until 12/26/2025 End: 12-26-2025 CT Chest W contrast IV CT CHEST W IVCON Radiology Routine Malignant neoplasm of upper-outer quadrant of right breast in female, estrogen receptor positive (HCC) 1 Occurrences starting 11/26/2024 until 12/26/2025 [facility] Comment on above: 1 Occurrences starti ng 11/26/2024 until 12/26/2025 End: 12-26-2025 NM Whole body Bone Views NM BONE WHOLE BODY Radiology Routine Malignant neoplasm of upper-outer quadrant of right breast in female, estrogen receptor positive (HCC) 1 Occurrences starting 11/26/2024 until 12/26/2025 [facility] Comment on above: 1 Occurrences starti ng 11/26/2024 until 12/26/2025 Patient Education [facility] Work Phone: Patient referral [facility] Work Phone: Procedure [facility] Immunizations Immunization Date Immunization Notes Care Provider [facility] 06-04-2024 influenza virus vaccine, unspecified formulation Ross Marion DO Work Phone: [facility] 04-11-2021 Covid (Pfizer) [facility] 03-21-2021 Covid (Pfizer) [facility] 06-19-2020 influenza, injectable,quadrivalent , preservative free, pediatric [facility] 03-04-2018 tetanus toxoid, redu sandra diphtheria toxoid, and acellular pertussis vaccine, adsorbed Arpita Roca MD Work Phone: [facility] Payers Date Payer Category Payer Self-pay [id number] 2024 Self-pay [id number] 2023 Unknown MMO MMO [employer] PPO [id number] 2023-Present [phone] [address] [place] [address] PPO [id number] 2023 Unknown [id number] 2018 Private Health Insurance [id number] 2018 Private Health Insurance [id number] 2017 [facility] [id number] 2017 Unknown [facility] [employer] [id number] 2 [id number] Private Health Insurance [id number] Unknown [id number] Unknown [id number] 62 Unknown [id number] 62 Unknown [id number] 62 Unknown [id number] 62 Unknown [id number] 62 Unknown [id number] 62 Unknown [id number] 62 Social History Date Type Detail Facility Start: 01-11-2022 End: 06-19-2024 Tobacco smoking status Never smoked tobacco (finding) [facility] Sex Assigned At Sex [facility] Start: 04-09-2022 End: 11-03-2023 Tobacco smoking status NHIS Unknown if ever smoked [facility] Start: 12-13-2020 None [facility] Start: 12-13-2020 Spouse/ Signif icant Other [facility] Start: 01-06-2020 Non-smoker [facility] Start: 1985 Sex Assigned At Female [facility] Start: 03-23-2017 End: 06-19-2024 Tobacco use and exposure Smokeless tobacco non-user [facility] Start: 10-27-2020 End: 11-26-2024 Alcohol intake Current drinker of alcohol (finding) [facility] Start: 03-23-2017 Alcohol Comment occassion [facility] Start: 1985 Sex Assigned At Not on file [facility] Start: 06-11-2022 End: 06-21-2022 Exposure to SARS-CoV-2 (event) Not sure [facility] Start: 06-19-2024 End: 12-06-2024 History of Social function [facility] Start: 06-19-2024 End: 12-06-2024 Tobacco use panel [facility] National Score (1-100), lower number is lower risk Not on file [facility] NEGATED: Highlighted row [facility] Medical Equipment Procedure Code Equipment Code Equipment [...] Facility 01-11-2022 Functional Status Independent [facility] 01-11-2022 Functional Status Resting [facility] Mental Status Date Assessment Result Facility 12-19-2024 Cognitive function Level Of Cons ciousness Awake;Alert;Appropriate;Follo ws Commands [facility] Work Phone: 01-11-2022 Mental Status Orientation Oriented x 4 [facility] 01-11-2022 Mental Status [facility] Clinical Notes 01-11-2022 to 03-10-2025 Telephone [...] for a recommendation to someone closer to [place]. If she is unsuccessful, she will contact this office to be scheduled through [facility]. Patient verbalized understanding. Larissa Tang LPN [facility] 03-10-2025 Miscellaneous Notes Formattin g of this [...] for a recommendation to someone closer to [place]. If she is unsuccessful, she will contact this office to be scheduled through [facility]. Patient verbalized understanding. Larissa Tang LPN Spoke w pt to schedule consult to [facility] med which require the pt to [...] today. Please advise. documented in this encounter [facility] 03-10-2025 Telephone encount er Note Spoke w pt to schedule consult to [facility] which require the pt to call and schedule, pt was given the number to call and schedule at [facility] as closer locations are booked out further than she would like. Also she would like a nurse to call her as she is wondering why Dr Marion can't clear her. Tatianna Mendoza [facility] 03-10-2025 Telephone encount er Note PSS- please contact patient to schedule with vascular MEDICINE for pre-op clearance. Larissa Tang LPN [facility] 03-10-2025 Telephone encount er Note Thank you. Order filed. Ross Marion DO [facility] 03-10-2025 Telephone encount er Note Patient returned call. Larissa, were we looking at moving patients to fit patient in or next avail? Informed patient we would contact her to schedule [facility] Work Phone: 03-05-2025 Telephone encount er Note [...] after Dr. Marion's return. Larissa Tang LPN [facility] 03-05-2025 Telephone encount er Note Patient called [...] surgery will be canceled today. Please advise. [facility] 02-14-2025 Radiology Diagnostic study note [facility] Imaging Services [address] [place] [address] Breast Limited Unilateral MR#: [id number] Acct: [id number] Name: MARGO VALERO Rep #: [id number] : 1985 F 39 From: Jamison Moore MD PCP: Dr. Mallory Robertson MD Status: REG CL I Study:Breast Limited Unilateral Date of Exam: 02/13/25 Exam# [id number] Ordering Dr: Jenny Stiles MD PROCEDURE: BREAST [...] MRI Recommended BI-RADS category 0 Reading Location: [id number] CC: Dr. Mallory Robertson MD; Dr. 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 Mallory Robertson MD Status: REG CL I Study:Breast Limited Unilateral Date of Exam: 02/13/25 Exam# [id number] Ordering Dr: Jenny Stiles MD PROCEDURE: BREAST [...] - NEED ADDITIONAL IMAGING EVALUATION. Reading Location: [id number] CC: Dr. Mallory Robertson MD; Dr. 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 Marion. Instructed to contact office in August for Follow up in November of 2025. Pt. Voiced understanding . Luisa Lopez LPN [facility] 02-12-2025 Miscellaneous Notes Formattin g of this [...] to call back and reschedule CT at [facility]. Tatianna Mendoza PSS- please see phone note from 12/05/2024. Patient needs CT's scheduled at [facility] d/t iodine listed as an allergy with hives/swelling. Please contact her to schedule at [place]. Dr. Marion sent in a prednisone prep. Patient is aware of all instructions regarding prep. Larissa Tang LPN documented in this encounter [facility] 02-11-2025 Telephone encount er Note Message left on identified voicemail to check her my chart for Dr. Marion notation concerning recent CT scan results. Luisa Lopez LPN [facility] 02-11-2025 Telephone encount er Note Scans indicated no evidence of metastatic disease. Does not need follow-up office visit at this time. I would encourage her to continue annual follow-up with Dr. Roca whom she last saw in June 2022. Ross Marion DO [facility] 02-10-2025 Telephone encount er Note Patient was scheduled to see this morning 02/10/25 @ 11:30 am and canceled. She stated that she had seen the results on her MyChart and she thinks everything looked good from what she could tell and is questioning if a rescheduled visit is necessary. Please advise. Lux Bunch Pss [facility] 02-06-2025 History of Presen t illness Narrative [...] PATIENT PRESENTS WITH AN IMPLANTABLE OR ATTACHED VETERINARY VIRUS SERUM INSPECTOR: No RADIOLOGY DEPARTMENT: CT; Exam(s) Completed: Chest Abdomen Pelvis PERIPHERAL IV DATA: Site assessment: Clean,Dry and Intact, Site disposition Discontinued SIGNED BY: TECHNOLOGIST Kalpesh February 06, 2025 10:41 AM documented in this encounter [facility] 02-06-2025 Note HNO ID: [id number] Author: KATHY GOLDSTEIN TECHNOLOGIST Service: Radiology Author [...] PATIENT PRESENTS WITH AN IMPLANTABLE OR ATTACHED VETERINARY VIRUS SERUM INSPECTOR: No RADIOLOGY DEPARTMENT: CT; Exam(s) Completed: Chest Abdomen Pelvis PERIPHERAL IV DATA: Site assessment: Clean,Dry and Intact, Site disposition Discontinued SIGNED BY: Kathy Goldstein TECHNOLOGIST February 06, 2025 10:41 AM [facility] 02-06-2025 Nurse Note Radiology Service Progress [...] DATE: February 06, 2025 TIME: 9:59 AM [facility] 02-06-2025 Nurse Note Radiology Service Progress Note [...] TIME: 9:59 AM documented in this encounter [facility] 01-23-2025 Evaluation note Diagnosis Onset Date Resolution Breast implant capsular contracture acute January 23, 2025 9:30am History of reconstruction of both breasts acute January 23, 2025 9:30am Malignant neoplasm of upper-outer quadrant of right breast, estrogen recept resolved January 23, 2025 9:30am [facility] Work Phone: 1(173) 335-762606-05-2025 Evaluation note* Diagnosis Onset Date Resolution Status [...] both breasts acute February 07, 2025 1:49pm [facility] Work Phone: 1(617) 851-721206-04-2025 Telephone encounter Note* Telephone Encounter - Tatianna Mendoza - 01/22/2025 9:01 AM EDT LVM for pt to call back and schedule FU w Dr Marion. Tatianna Mendoza [facility]06-04-2025 Telephone encounter Note* Telephone Encounter - Dixie Newton - 01/22/2025 8:51 AM EDT Patient rescheduled with PSS at Radio desk stating she was unable to call in to reschedule due to being in a meeting. She is rescheduled for 02/06. Patient needs to reschedule office visit with Dr. Marion at least one week after. Canceling 01/29 OV. Please reschedule OV with Dr. Marion [facility] Work Phone: 1(757) 335-117606-04-2025 Telephone encounter Note* Telephone Encounter - Dixie Newton - 01/22/2025 8:37 AM EDT Left second message this morning regarding CT. Sent Teams message to radio desk. Canceled CT so that patient cannot check in on kiosk. [facility]06-03-2025 Telephone encounter Note* Telephone Encounter - Tatianna Mendoza - 01/21/2025 10:16 AM EDT Lvm for pt to call back and reschedule CT at [facility]. Tatianna Mendoza [facility]06-03-2025 Telephone encounter Note* Telephone Encounter - Larissa Tang LPN - 01/21/2025 9:51 AM EDT PSS- please see phone note from 12/05/2024. Patient needs CT's scheduled at [facility] d/t iodine listed as an allergy with hives/swelling. Please contact her to schedule at [place]. Dr. Marion sent in a prednisone prep. Patient is aware of all instructions regarding prep. Larissa Tang LPN [facility]04-18-2025 Telephone encounter Note* Telephone Encounter - Neda Chandra - 12/06/2024 12:48 PM EDT Patient stopped and scheduled Neda Chandra [facility]04-18-2025 Miscellaneous Notes* Telephone Encounter - Neda Chandra [...] PSS- patient needs to be scheduled at [facility] for her CT C/A/P d/t iodine listed as an allergy with hives/swelling. Please contact her to schedule at [place]. Dr. Marion sent in a prednisone prep. Patient is aware of all instructions regarding prep. She will keep bone scan as scheduled. * Telephone Encounter - Larissa Tang LPN - 12/05/2024 12:26 PM EDT engineering technician parking called. Patient is allergic to Iodine- hives/swelling. CT orders updated to WO IV or Oral contrast. Please file new orders. Larissa Tang LPN [facility] History of Present illness Narrative* Rosalia Quinteros, [...] PATIENT PRESENTS WITH AN IMPLANTABLE OR ATTACHED VETERINARY VIRUS SERUM INSPECTOR: n/a CREATININE: Creatinine Date Value Ref Range [...] 12:30 PATIENT DISCHARGED TO: Ambulatory patient, left [place] department area. Is this a therapy: No A Diagnostic radioactive procedure has taken place, with no further precautions necessary other than routine body substance precautions. More information regarding radiation safety can be found usingthis link: [email or web address] 20Diagnostic%20Nuclear%20Medicine%20Procedures.pdf SIGNATURE: LOUIS Bowles) PATIENT NAME: Margo Valero DATE: December 06, 2024 TIME: 12:50 PM PAGER/CONTACT #: documented in this encounter[facility]04-18-2025 NoteHNO ID: [id number] Author: ROSALIA QUINTEROS RT (R) Service: Nuclear [...] PATIENT PRESENTS WITH AN IMPLANTABLE OR ATTACHED VETERINARY VIRUS SERUM INSPECTOR: n/a CREATININE: Creatinine Date Value Ref Range [...] 12:30 PATIENT DISCHARGED TO: Ambulatory patient, left [place] department area. Is this a therapy: No A Diagnostic radioactive procedure has taken place, with no further precautions necessary other than routine body substance precautions. More information regarding radiation safety can be found using this link: [email or web address] 20Diagnostic%20Nuclear%20Medicine%20Procedures.[email or web address] SIGNATURE: RT Jelena(R) PATIENT NAME: Margo Valero DATE: December 06, 2024 TIME: 12:50 PM PAGER/CONTACT #:[facility]04-18-2025 Telephone encounter Note* Telephone Encounter - Neda Chandra - 12/06/2024 12:05 PM EDT Spoke with patient o schedule. She is currently at an appointment and will stop to schedule Neda Chandra [facility]04-17-2025 Telephone encounter Note* Telephone Encounter - Larissa Tang LPN - 12/05/2024 3:56 PM EDT PSS- patient needs to be scheduled at [facility] for her CT C/A/P d/t iodine listed as an allergy with hives/swelling. Please contact her to schedule at [place]. Dr. Marion sent in a prednisone prep. Patient is aware of all instructions regarding prep. She will keep bone scan as scheduled. [facility]04-17-2025 Telephone encounter Note* Telephone Encounter - Larissa Tang LPN - 12/05/2024 12:26 PM EDT engineering technician parking called. Patient is allergic to Iodine- hives/swelling. CT orders updated to WO IV or Oral contrast. Please file new orders. Larissa Tang LPN [facility]04-13-2025 Telephone encounter Note* Telephone Encounter - Lux Escobar - 12/01/2024 9:25 AM EDT I called and confirmed the below appointment for 12/11/24 with Margo, sumeet stated understanding. Lux Bunch Pss [facility]04-13-2025 Miscellaneous Notes* Telephone Encounter - Lux Escobar [...] after completed Neda Chandra documented in this encounterUk [facility]04-09-2025 Telephone encounter Note * Telephone Encounter - Neda Chandra - 11/27/2024 9:51 AM EDT Lvm to let patient know she is scheduled 12/11 for ov Neda Chandra [facility]04-09-2025 Telephone encounter Note* Telephone Encounter - Dixie Newton - 11/27/2024 8:[address] scans ( waiting to find out if here or [facility])-done NM bone scan-done F/U couple days after completed [facility] Work Phone: 1([phone]) 163-590904-08-2025 Telephone encounter Note* Telephone Encounter - Neda Chandra - 11/26/2024 5:01 PM EDT Scheduled both scans with patient Neda Lynchlins [facility]04-08-2025 Telephone encounter Note* Telephone Encounter - Neda Chandra - 11/26/2024 4:51 PM EDT Patient said once confirmed we can schedule 1st available and leave her a message with dates and times. Schedule both at the same time if possible. CT scans ( waiting to find out if here or [facility]) NM bone scan F/U couple days after completed Neda Chandra [facility]04-08-2025 NoteHNO ID: [id number] Author: ROSS MARION, DO Service: ? Author [...] 05/01/2015. 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 Genetic testing revealed that she was BRCA2 positive. She did not receive adjuvant radiation treatment evidently because of delayed healing from surgery which was attributed to chemotherapy. She had undergone hysterectomy and bilateral salpingo-oophorectomy several years previously and was therefore started on anastrozole after surgery. Had permanent implants placed. She was living in [place] but moved to [place] with her in 2016. She was seen [...] needle bx with path showing ER 99% OH 1% Her 2 1+ Fish non amp Ki 67 17% grade 3 IDC 06/03/[address] sampling with [address] (out of 8), excision bx of primary site with 3 foci of IDC - clinical stage cT2N1 Neodj ACT completed 09/17/15 10/24/2015 bilateral mastectomy (R therapeutic modified radical mastectomy with ALND and L prophylactic) with napping machine operator - path stage ypT0N0 Germline testing BRCA 2 positive Did not receive adj RT due to delayed healing from surgery (attributed to chemo) BSO in 2011 (after pt found to be brca 2 pos, this germline testing predated cancer diagnosis, mom had brca2, aunt and grandmother brca 2), hysterectomy in 2015 Nodules of medial aspect of R breast skin [id number], reportedly evaluated with imaging and negative AI: exemestane November 2015 (more content not included)...[facility]04-08-2025 History of Present illness Narrative* [...] 05/01/2015. 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 Genetic testing revealed that she was BRCA2 positive. She did not receive adjuvant radiation treatment evidently because of delayed healing from surgery which was attributed to chemotherapy. She had undergone hysterectomy and bilateral salpingo-oophorectomy several years previously and wastherefore started on anastrozole after surgery. Had permanent implants placed. She was living in [place] but moved to [place] with her in 2016. She was seen [...] needle bx with path showing ER 99% OH 1% Her 2 1+ Fish non amp Ki 67 17% grade 3 IDC 06/03/[address] sampling with [address] (out of 8), excision bx of primary site with 3 foci of IDC - clinical stage cT2N1 Neodj ACT completed 09/17/15 10/24/2015 bilateral mastectomy (R therapeutic modified radical mastectomy with ALND and L prophylactic) with napping machine operator - path stage ypT0N0 Germline testing BRCA 2 positive Did not receive adj RT due to delayed healing from surgery (attributed to chemo) BSO in 2011 (after pt found to be brca 2 pos, this germline testing predated cancer diagnosis, mom had brca2, aunt and grandmother brca 2), hysterectomy in 2015 Nodules of medial aspect of R breast skin [id number], reportedly evaluated with imaging and negative AI: [...] years ago. Saw a plastic surgeon in [place]. Was advised needed to lose weight for [...] was discussed with the patient or authorized customer support representative. The patient or authorized customer support representative has agreed to proceed with the [...] encounter diagnosis) Assessment: -cT1c N1 M0 ER positive/OH weakly positive, HER2 non over-expressed invasive ductal [...] which included preparing to see the patient, [id number] patient care, completing clinical documentation, obtaining and/or reviewing separately obtained history, performing a medically appropriate examination, counseling and educating the pat ient/family/caregiver, ordering medications, tests, or procedures, communicating with other HCPs (not separately reported), and communicating results to the patient/family/caregiver. Ross Marion DO documented in this encounter[facility]10-31-2024 Telephone encounter Note * Telephone Encounter - [...] 1 day. Authorizing Provider: KY CONTRERAS MA [facility]10-31-2024 Miscellaneous Notes* Telephone Encounter - Arlette Angulo [...] steroid and a cough suppressant to [facility] in [place]. Please call and advise Pt. I told her I saw that they would call in Doxycycline if x-ray showed pneumonia, and it did not. documented in this encounterUk Healthcare10-31-2024 Telephone encounter Note * Telephone Encounter - Ky Contreras MD - 06/20/2024 10:24 AM EDT Cough suppressant and steroid sent. [facility]10-31-2024 Telephone encounter Note* Telephone Encounter - Katiuska Garcia RN - 06/20/2024 8:56 AM EDT Pt called in and reports she was seen in [place] on 06/19/24. She states the provider told her she wouldcall in a steroid and a cough suppressant to [facility] in [place]. Please call and advise Pt. I told her I saw that they would call in Doxycycline if x-ray showed pneumonia, and it did not. [facility]10-30-2024 Telephone encounter Note* Telephone Encounter - Teir Thornton APRN.CNP - 06/19/2024 7:59 PM EDT Xray reveals atelectasis. No pneumonia VM message left and mychart message sent [facility] Work Phone: 1(179) 730-825210-30-2024 Miscellaneous Notes* Telephone Encounter - Teri Thornton APRN.CNP - 06/19/2024 7:59 PM EDT Xray reveals atelectasis. No pneumonia VM message left and mychart message sent documented in this encounterUk Healthcare10-30-2024 History of Present illness Narrative* Shiraz Sin, [...] PATIENT PRESENTS WITH AN IMPLANTABLE OR ATTACHED VETERINARY VIRUS SERUM INSPECTOR: No RADIOLOGY DEPARTMENT: General X-ray: Exam(s) Completed: Chest X-Ray PERIPHERAL IV DATA: Not applicable SIGNED BY: RT Valeir(Annabel) June 19, 2024 5:37 PM documented in this encounterUk Healthcare10-30-2024 NoteHNO ID: [id number] Author: SHIRAZ SIN RT(Annabel) Service: ? Author Type: Dental Technician Metal Type: Progress Notes Filed: 06/19/2024 17:44 Note [...] PATIENT PRESENTS WITH AN IMPLANTABLE OR ATTACHED VETERINARY VIRUS SERUM INSPECTOR: No RADIOLOGY DEPARTMENT: General X-ray: Exam(s) Completed: Chest X-Ray PERIPHERAL IV DATA: Not applicable SIGNED BY: RT Valeri(R) June 19, 2024 5:37 [facility]10-30-2024 NoteHNO ID: [id number] Author: ROSA MARTINEZ PA Service: ? Author Type: Physician Cartography/Mapping Technician Type: Progress Notes Filed: 06/19/2024 18:46 Note Text: This note was created using [employer]. Subjective Margo Valero is a 38 year [...] [Povidone-Iodine], Z Yvrose [Azithromycin], Beef Containing Products, Lawrence, Iodine, and Skin Cleanser MEDICATIONS buPROPion XL [...] detail warranting prompt ER evaluation. Rosa Martinez [facility]10-30-2024 History of Present illness Narrative* Rosa [...] [Povidone-Iodine], Z Yvrose [Azithromycin], Beef Containing Products, Lawrence, Iodine, and Skin Cleanser MEDICATIONS buPROPion XL [...] ER evaluation. ABRAHAM Saucedo documented in this [facility] Hospital Discharge instructions Additional Instructions Wear finger [...] rule out any type of flexor tendon rupture.[facility] Work Phone: [phone] 188-329904-10-2023 History of Present illness Narrative* Poornima Casillas MD - 11/28/2022 8:54 AM EDT Patient did not attend intake visit today. Second no show. She should not be scheduled again unlessshe calls and verbalizes intent. [facility] in this [facility]12-27[facility]22 History of Present illness Narrative* Poornima Casillas MD - 08/16/2022 1:00 PM EST Patient did not attend intake visit. [facility] in this encounter[facility]11-01-2022 Instructions* Patient Instructions* Arpita Roca MD - 06/21/2022 11:02 AM EDT You were seen in the breast clinic today and we discussed: Psychiatry, psychology referral Evaluation of new symptoms with scans We would like to see you in follow in 3 months with my nurse practitioner. Please call [facility] at [phone] to make that follow up appointment. It was a pleasure participating in your care. Dr. Roca documented in this encounter[facility]11-[facility]22 History of Present illness Narrative* Arpita Roca [...] needle bx with path showing ER 99% OH 1% Her 2 1+ Fish non amp Ki 67 17% grade 3 IDC 06/03/[address] sampling with [address] (out of 8), excision bx of primary site with 3 foci of IDC - clinical stage [id number] Neodj ACT completed 09/17/15 10/24/2015 bilateral mastectomy (R therapeutic modified radical mastectomy with ALND and L prophylactic) with napping machine operator - path stage [id number] Germline testing BRCA 2 positive Did not receive adj RT due to delayed healing from surgery (attributed to chemo) BSO in 2011 (after pt found to be brca 2 pos, this germline testing predated cancer diagnosis, mom had brca2, aunt and grandmother brca 2), hysterectomy in 2015 Nodules of medial aspect of R breast skin [id number], reportedly evaluated with imaging and negative AI: [...] positive (HCC) 06/21/2022 Cancer Staged Staging form: [facility] - Clinical: Stage IIB (T2, N1, M0) - Signed by Arpita Roca MD on 06/21/2022 06/21/2022 Cancer Staged Staging form: [facility] - Pathologic stage from [...] hospitalization or period of immobilization. Non smoker. 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: Menarche: age 10 (1 tubal - miscarriage) Age at first : 20 OCPs: age 16-20, did Mirena IUD x 1 year [id number] Premenopausal: No - bilateral salpingo-oophorectomy CANCER FAMILY [...] [Azithromycin] Unknown Beef Containing Pro* Hives, Swelling Lawrence Hives, Swelling Iodine Hives, Swelling Skin Cleanser [...] female, estrogen receptor positive (HCC) Staging form: [facility] - Clinical: Stage IIB [...] is established with psychiatry, I have shared terminologist management of mood stabilizers and sleep aids, [...] which included preparing to see the patient, [id number] patient care, completing clinical documentation, obtaining and/or reviewing separately obtained history, performing a medically appropriate examination, counseling and educating the pat ient/family/caregiver, and communicating results to the patient/family/caregiver. documented in this encounter[facility]11-01-2022 Nurse Note* Radha Domingo MA - 06/21/2022 9:51 AM EDT Additional intake questions: Has the patient had fever, nausea, vomiting, diarrhea, constipation, fatigue for > 1 week? No Does the patient have a decreased appetite? No Does patient want to see a Bark Peeler? No (yes to any of above refer patient to schedulers for dietitian appointment) ) Does patient have any new or increased numbness or tingling of extremities? No Is patient interested in fertility information? No Does patient need any prescription refills? No Does patient have an advanced directive in place? No documented in this encounterUk [facility]05-24-[facility]22 Hospital Discharge instructions Patient Education 01/11/2022 16:43:22 [...] temperature. Use toothpaste made for sensitive teeth. [place] gently up and down instead of sideways. Brushing sideways can wear away root surfaces if they are exposed. If your tooth is chipped or cracked, or if there is a large open cavity, put oil of cloves directlyon the tooth to relieve pain. You can buy oil of cloves at drugstores. Some pharmacies carry an wbwo-sza-zmumrmy toothache kit. This contains a paste that you can put on the exposed tooth to make it less sensitive. Put a cold pack on your jaw over the sore area to help reduce pain. You may use zibo-yga-deqyrxu medicine to ease pain, unless your doctor [...] healthcare provider Pus drains from the tooth [id number] [employer]. [address] [place] [address]. All rights reserved. This information is not intended as a substitute for professional medical care. Always follow yourhealthcare professional's instructions. Follow Up Care 01/11/2022 16:03:16 With:your oral surgeon Address:Unknown When:2-4 days [facility] Evaluation + Plan note No data available for this section [facility] Evaluation noteNo assessment information available [facility] Work Phone: Evaluation note* Diagnosis Acute right-sided low back pain with sciatica, sciatica laterality unspecified- Primary History of right breast cancer documented [facility] this encounter [facility]* Diagnosis Onset Date Resolution Status Distal phalanx or phalanges, closed fracture acute [facility] Work Phone: Evaluation note* Diagnosis Onset Date Resolution Status H/O staphylococcal infection acute Shingles rash acute [facility] Work Phone: Evaluation note* Diagnosis Acute cough- Primary Acute cough [facility] this [facility]* Diagnosis Acute cough documented in this encounter [facility]* Diagnosis Malignant neoplasm of upper-outer quadrant of right breast in female, estrogen receptor positive (HCC)- Primary documented in this encounter [facility]* Diagnosis Malignant neoplasm of upper-outer quadrant of right breast in female, estrogen receptor positive (HCC)- Primary documented in this [facility]* Diagnosis Malignant neoplasm of upper-outer quadrant of right breast in female, estrogen receptor positive (HCC) documented in this encounter [facility]* Diagnosis Malignant neoplasm of upper-outer quadrant of right breast in female, estrogen receptor positive (HCC) documented in this encounter [facility]* Diagnosis Malignant neoplasm of upper-outer quadrant of right breast in female, estrogen receptor positive (HCC)- Primary documented in this encounter [facility] note* Diagnosis Malignant neoplasm of upper-outer quadrant of right breast in female, estrogen receptor positive (HCC)- Primary History of DVT (deep vein thrombosis) Personal history of venous thrombosis and embolism documented [facility] this [facility] No data available for this section [facility] Reason for referral (narrative)No reason for referral [facility] Work [facility] Reason for visit Narrative* Diagnostic Procedure Only (Routine) - Closed Specialty Diagnoses / Procedures Referred By Atul t Referred To Contact [facility]AGING Diagnoses Malignant neoplasm of upper-outer quadrant of right breast in female, estrogen receptor positive (HCC) Procedures NM BONE WHOLE BODY BONE &/JOINT IMAGING WHOLE BODY Ross Marion DO [address] [place] [address] Phone: tel: fax: [facility] Imaging [address] [place] [id number] Phone: tel: Referral ID Status Reason Start Date Expiration Date V isits Requested Visits Authorized [id number] Closed Auto-Generate d Referral 11/26/2024 12/26/2025 1 1 [facility] for visit Narrative* MRI/CT (Routine) - Closed Specialty Diagnoses / Procedures Referred By Contac t Referred To Contact CT IMAGING Diagnoses Malignant neoplasm of upper-outer quadrant of right breast in female, estrogen receptor positive (HCC) Procedures CT CHEST W IVCON DIAGNOSTIC COMPUTED TOMOGRAPHY THORAX W/CONTRAST Ross Marion, DO [address] [place] [address] Phone: tel: fax: [place] [phone] Referral ID Status Reason Start Date Expiration Date V isits Requested Visits Authorized [id number] Closed Auto-Generate d Referral 11/26/2024 12/26/2025 1 1 [facility] for visit Narrative* MRI/CT (Routine) - Closed Specialty Diagnoses / Procedures Referred By Contac t Referred To Contact CT IMAGING Diagnoses Malignant neoplasm of upper-outer quadrant of right breast in female, estrogen receptor positive (HCC) Procedures CT CHEST W IVCON DIAGNOSTIC COMPUTED TOMOGRAPHY THORAX W/CONTRAST Ross Marion, DO [address] [place] [address] Phone: tel: fax: [place] [phone] Referral ID Status Reason Start Date Expiration Date V isits Requested Visits Authorized [id number] Closed Auto-Generate d Referral 11/26/2024 12/26/2025 1 1 [facility] Summary Purpose Family History No Family History Records Found Relationship Condition Age at Onset Recorded Date/T [place] mother Malignant neoplasm of breast Unknown Unknown Depression Unknown Hypertension Unknown Osteoporosis Unknown aunt Malignant neoplasm of breast Unknown grandmother Malignant neoplasm of breast Unknown Advance Directives No Advanced Directives Records Found Advance Directive Response Recorded Date/ Time Living Will No April 09 4:25pm Power of Mock Up Maker No April 09 022 4:25pm Advance Directive Response Recorded Date/ Time Living Will Yes December 25, 2022 9: 03pm Power of Mock Up Maker Yes December 25, 2022 9:03pm Name of Medical Power of Mock Up Maker December 25, 2022 9:03pm Advance Directive Response Recorded Date/ Time Name of Medical Power of Mock Up Maker December 25, 2022 9:03pm Living Will Yes December 25, 2022 9: 03pm Power of Mock Up Maker Yes December 25, 2022 9:03pm Advance Directive Response Recorded Date/ Time Living Will Yes December 25, 2022 9: 03pm Power of Mock Up Maker Yes December 25, 2022 9:03pm Advance Directive Response Recorded Date/ Time Do you have a Healthcare Power of Mock Up Maker? No December 19, 2024 8:52pm Chief Complaint [...] COUNSELING EACH 30 MINUTES Arpita Roca MD [address] [place] [address] [address] Referral ID Status Reason Start Date Expiration Date Visits Requested Visits Authorized [id number] Authorized PCP Requested Referral Auto-Generate d Referral 06/21/2022 06/21/2023 1 1 Specialty Diagnoses / Procedures Referred By Atul castro Referred To Contact [facility]LEC[facility] FUNCTIONAL IMAGING Diagnoses Acute right-sided low back pain with sciatica, sciatica laterality unspecified Procedures NM BONE WHOLE BODY BONE &/JOINT [place] [address] [place] [phone] [facility] [address] [place] [address] Referral ID Status Reason Start Date Expiration Date Visits Requested Visits Authorized [id number] Pending Review Auto-Generat ed Referral 06/21/2022 07/21/2023 1 1 Additional Source Comments INFORMATION SOURCE (unrecogn ized section and content) DATE CREATED AUTHOR 02/13/2018 [facility] DATE CREATED AUTHOR AUTHOR'S ORGANIZ ATION 02/09/2025 [facility] DATE CREATED AUTHOR AUTHOR'S ORGANIZ ATION 03/10/2025 [facility] DATE CREATED AUTHOR AUTHOR'S ORGANIZ ATION 03/12/2025 [facility] Goals (unrecognized section and content) Goals may be documented in a n alternate section Source Comments (unrecognize d section and content) In the event this informatio n is protected by the Federal Confidentiality of Alcohol and Drug Abuse Patient Records regulations: The Federal rules restrict any use of the information to criminally investigate or prosecute any alcohol or drug abuse patient.[facility] HealthcareIn the event this information is protected by the Federal Confidentiality of Alcohol and Drug Abuse Patient Records regulations: The Federal rules restrict any use of the information to criminally investigate or prosecute any alcohol or drug abuse patient.[facility] HealthcareIn the event this information is protected by the Federal Confidentiality of Alcohol and Drug Abuse Patient Records regulations: The Federal rules restrict any use of the information to criminally investigate or prosecute any alcohol or drug abuse patient.[facility] HealthcareIn the event this information is protected by the Federal Confidentiality of Alcohol and Drug Abuse Patient Records regulations: The Federal rules restrict any use of the information to criminally investigate or prosecute any alcohol or drug abuse patient.[facility] HealthcareIn the event this information is protected by the Federal Confidentiality of Alcohol and Drug Abuse Patient Records regulations: The Federal rules restrict any use of the information to criminally investigate or prosecute any alcohol or drug abuse patient.[facility] HealthcareIn the event this information is protected by the Federal Confidentiality of Alcohol and Drug Abuse Patient Records regulations: The Federal rules restrict any use of the information to criminally investigate or prosecute any alcohol or drug abuse patient.[facility] HealthcareIn the event this information is protected by the Federal Confidentiality of Alcohol and Drug Abuse Patient Records regulations: The Federal rules restrict any use of the information to criminally investigate or prosecute any alcohol or drug abuse patient.[facility] HealthcareIn the event this information is protected by the Federal Confidentiality of Alcohol and Drug Abuse Patient Records regulations: The Federal rules restrict any use of the information to criminally investigate or prosecute any alcohol or drug abuse patient.[facility] HealthcareIn the event this information is protected by the Federal Confidentiality of Alcohol and Drug Abuse Patient Records regulations: The Federal rules restrict any use of the information to criminally investigate or prosecute any alcohol or drug abuse patient.[facility] HealthcareIn the event this information is protected by the Federal Confidentiality of Alcohol and Drug Abuse Patient Records regulations: The Federal rules restrict any use of the information to criminally investigate or prosecute any alcohol or drug abuse patient.[facility] HealthcareIn the event this information is protected by the Federal Confidentiality of Alcohol and Drug Abuse Patient Records regulations: The Federal rules restrict any use of the information to criminally investigate or prosecute any alcohol or drug abuse patient.[facility] HealthcareIn the event this information is protected by the Federal Confidentiality of Alcohol and Drug Abuse Patient Records regulations: The Federal rules restrict any use of the information to criminally investigate or prosecute any alcohol or drug abuse patient.[facility] HealthcareIn the event this information is protected by the Federal Confidentiality of Alcohol and Drug Abuse Patient Records regulations: The Federal rules restrict any use of the information to criminally investigate or prosecute any alcohol or drug abuse patient.[facility] HealthcareIn the event this information is protected by the Federal Confidentiality of Alcohol and Drug Abuse Patient Records regulations: The Federal rules restrict any use of the information to criminally investigate or prosecute any alcohol or drug abuse patient.[facility] HealthcareIn the event this information is protected by the Federal Confidentiality of Alcohol and Drug Abuse Patient Records regulations: The Federal rules restrict any use of the information to criminally investigate or prosecute any alcohol or drug abuse patient.[facility] HealthcareIn the event this information is protected by the Federal Confidentiality of Alcohol and Drug Abuse Patient Records regulations: The Federal rules restrict any use of the information to criminally investigate or prosecute any alcohol or drug abuse patient.[facility] HealthcareIn the event this information is protected by the Federal Confidentiality of Alcohol and Drug Abuse Patient Records regulations: The Federal rules restrict any use of the information to criminally investigate or prosecute any alcohol or drug abuse patient.[facility] Reason for Visit (unrecogniz ed section and [...] WHOLE BODY Ross Marion DO [address] [place] [address] Phone: tel: fax: Molecular Imaging [address] [place], [place] [id number] Phone: tel: Referral ID Status Reason Start Date Expiration Date V isits Requested Visits Authorized [id number] Closed Auto-Generate d Referral 11/26/2024 12/26/2025 1 [...] 23, 2025 End: January 23, 2025 Mallory Robertosn MD Referring Provider Active Start : January [...] January 23, 2025 End: January 23, 2025 Windsurfing Instructor Relationship Specialty Start Date End Date Rachelle Esparza MD [address] [place] [address] PCP - General Family Medicine 06/19/24 Adrianne Galicia RN Specialty Integration Aide Oncology 03/02/18 Team Status: Active Member Role Status Dates Grant Gee MARINE MECHANIC, MARINE MECHANIC-C Family Provider Active Vicky Morales DO Primary Care Provider Active Team Status: Inactive Member Role Status Dates Vicky Morales DO Primary Care Provider Active Dr. Santana Cortes DO Emergency Provider Active Windsurfing Instructor Relationship Specialty Start Date End Date Flynn Grant ([facility]) [address] [facility] [address] [place] [id number] PCP - General Family Medicine 03/01/18 Adrianne Galicia RN Specialty Integration Aide Oncology 03/02/18 FOR RECORDS PERTAINING TO PATIENTS [...] BE BASED ON THE PRIMARY CLINICAL RECORDS. [facility] [employer] provides no warranty or guarantee of the accuracy or completeness of information in this document.
[2025-04-06 01:41] LABS: Magnesium 2.0 mg/dL (1.5-2.2)
[2025-04-06 02:11] LABS: Vitamin B12 383 pg/mL (180-914)
--- NOTE | 2025-04-06 02:15 | MRI_ITS ---
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 COMPARISON: None. TECHNIQUE: Multiplanar axial, coronal and sagittal images of the orbits and neck without and with injection of 20 mL Clariscan. FINDINGS: Opacification of the left maxillary sinus. The orbits are within normal limits without mass lesion or abnormal enhancement. The globes, optic nerves, extra-axial muscles are unremarkable. The oropharynx, nasopharynx, hypopharynx superior and inferior glottis and epiglottis are within normal limits without enhancing mass lesion. The submandibular and sublingual glands are within normal limits. The thyroid gland is unremarkable. No bone abnormalities. No abnormal enhancement. No lymphadenopathy. Reactive small lymph nodes in the bilateral level 2 B. no soft tissue abnormalities. MRI/Orbit Face Neck W/WO Contrast IMPRESSION: Negative MRI of the orbits and cervical spine for tumors or active process. Opacification of the left maxillary sinuses consistent with paranasal sinus dis ease. Reading Location: [facility]
[2025-04-06] MEDS: 0.9% Normal Saline (1000mL) 1,000 ML 70 ML IV (02:29)
[2025-04-06] MEDS: Magnesium Sulfate 1 GM in Dextrose 5%-Water (100mL Bag) 100 ML IV (03:14)
[2025-04-06 03:28] LABS: Mucous, Urine 0 SEEN /hpf (<or=2+); Red Blood Cells-Urine 0 SEEN /hpf (0-5); Squamous Epithelial Cells - UA 0 SEEN /hpf (5-10)
[2025-04-06 03:30] LABS: Color, Urine Yellow (Yellow); Glucose, Dipstick Normal (Normal); Ketone-Dipstick Negative (Negative); Leukocyte Esterase-Dipstick Negative /ul (Negative); Nitrite-Dipstick Negative (Negative); Occult Blood-Urine Negative /ul (Negative); Protein-Dipstick Negative (Negative); Specific Gravity, Urine 1.010 (1.002-1.030); Urine Bilirubin Dipstick Negative (Negative)
[2025-04-06] MEDS: Pantoprazole Sodium 40 MG in 0.9% Normal Saline (100mL MB+) 100 ML 330 MG IV ×2 (03:41→21:23)
[2025-04-06 06:06] LABS: Hematocrit 40.4 % (37-47); Hemoglobin 14.0 g/dL (12.0-15.0); Immature Granulocytes Count 0.020 X10^3/uL (0.0-0.0); Mean Corp Hgb Conc 34.7 g/dL (32-36); Mean Corpuscular Volume 85.6 fL (81-99); Mean Platelet Vol. 9.3 fl (6.2-12.0); NRBC Flagged by Analyzer 0 % (0-5); Platelet Count 301 K/mm3 (150-450); RBC Distribution Width CV 11.8 % (11.6-14.6); RBC Distribution Width SD 36.7 fl (35.1-43.9); Red Blood Count 4.72 M/mm3 (4.2-5.4); White Blood Count 5.4 K/mm3 (4.4-11.0)
[2025-04-06 06:44] LABS: Alcohol, Blood (Medical)-Serum < 10.1 mg/dL (<=10.0)
[2025-04-06 06:47] LABS: AST(SGOT) 22 U/L (<=31); Alanine Aminotransfer ALT/SGPT 14 U/L (<=34); Albumin, Serum 4.0 g/dL (3.5-5.0); Alkaline Phosphatase 78 U/L (35-104); Anion Gap 13 (5-15); BUN 12 mg/dL (4-19); BUN/Creat Ratio 14.2 RATIO (10-20); Calcium,Total 9.3 mg/dL (7.6-11.0); Carbon Dioxide 19.5 mmol/L (21.0-32.0); Chloride 106 mmol/L (98-108); Cholesterol 176 mg/dL (<=200); Estimated Creatinine Clearance 99.71 ml/min (50-250); Globulin 3.0 g/dL (2.2-4.2); Glucose 146 mg/dL (70-99); Low Density Lipoprotein Calc. 98 mg/dL; Potassium 4.2 mmol/L (3.3-5.1); Triglycerides 39 mg/dL; Very Low Density Lipoprotein 8 mg/dL (5-40); cholesterol:hdl ratio screen 2.51
[2025-04-06 07:01] LABS: FOLATES,SERUM (FOLIC ACID) 6.90 ng/mL (4.60-34.80)
[2025-04-06 07:16] LABS: Barbiturate Urine NEGATIVE (< 200 ng/mL); Benzodiazepine Urine NEGATIVE (< 200 ng/mL); PCP Urine NEGATIVE (< 25 ng/mL); THC Urine NEGATIVE (< 50 ng/mL)
--- NOTE | 2025-04-06 07:32 | NEURO.CONS ---
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 On history, this is an exacerbation of underlying neck pain she has been having with slight change in quality of symptoms. On exam there is an isolated R elif's present with no other clear intracranial or UMN signs. Elif's are usually suddenly caused by NIGHT ASSISTANT injury or injury to the vasculature of the carotid artery. In this case her imaging shows no clear vascular damage and localization is not consistent with NIGHT ASSISTANT injury. Therefore would recommend evlauating the entire sympathetic system for focal lesion and given the neck and shoulder pain would consider high concern for extracranial lesion. Given history of breast cancer, most concerning for brachial plexus or sympathetic chain compression along the thoracic either around the posterior wall of the thorax or the spinal nerves themselves especially lower cervical or upper thoracic. Workup as below. Plan: - MRI Brain , cervical, and thoracic spine w/wo con - CT chest to eval for malignancy - can use lidocaine patch and 500mg TID of methocarbamol for shoulder soreness I personally attended this patient and spent a total time of 45minutes evaluating this patient including clinical assessment, review of chart, medical history imaging, and determining appropriate treatment and workup. HPI Consult Data Date of Consult: 04/06/25 HPI Narrative HPI Narrative: MEGAN BAILEY, is a 39 F with a past medical history of essential hypertension; previously on clonidine prn TID and now not on treatment, obesity (class II); with BMI of 39.1 this admission on semaglutide, history of Right ER+ breast cancer; s/p bilateral mastectomy and hysterectomy (2015) with subsequent breast reconstruction with ruptured silicone breast implants necessitating their exchange followed by Dr. Stiles of plastic surgery and Dr. Marion of oncology, chronic Right hand swelling due to lymphedema after lymph node dissection from surgical treatment of breast cancer, history of DVT (provoked); not on anticoagulation, migraine headaches, neuropathy, history of syncope, history of renal calculus; s/p lithotripsy (2019), history of vitamin D deficiency, depression with anxiety; on bupropion, history of shingles, seasonal allergies and chronic neck pain; previously followed by Dr. Baltazar of pain management s/p botox injections in her neck (but she states she has not followed up with him since ~2019) who presents to [facility] complaining of drooping Right eye and pain in the lower Right neck with migraine headache. Ms. Bailey reports her symptoms began ~1.5 weeks ago with a persistent migraine headache and worsening Right neck pain with Right eyelid drooping with abnormally small Right pupil and blurry vision in addition to ~5/10 Migraine Headache that has persisted since that time. She admits to a long-standing history of intermittent neck pain for years that is usually worse at night with her neck pain increasing of the last ~1.5 weeks, particularly at night with this pain diverse form her previous pain as it used to go from her neck into her head and now it is going from her neck down into her shoulder. She also noticed increasing weakness in her Right hand with an increased tendency to drop things, which is new. She stated she was recently seen by Dr. Marion and had scan that were negative, but she notes her head was not scanned at that time. She denies similar previous episodes or known history of Elif's syndrome. She also denies associated fever, chills, night sweats, recent unintentional weight change, nausea, vomiting, diarrhea, constipation, chest pain, palpitations, heart racing, lower extremity edema, dysuria, hematuria or rash. Neurologic History The migraine headache and neck pain have been going on for years on the R side, intensity has increased 2 weeks ago. The R neck pain is a constant throbbing pain and will hurt and sometimes at its worse will feel like a muscle spasm. It used to go from her neck into ear into eye and now it is going into her shoulder. Has migraines are localized to the R eye and face and she is sensitive to the light and nausea as well. Was having migraines weekly and migraines went away - occasionally will get them once a month. The neck is daily now. Years ago she was getting botox injections and it helped her pain. The droopy eyelid she woke up with on Monday but the neck pain has been getting worse these last 2 weeks as well. Has baseline numbnes sint he R arm which is stable The last couple days, grabbing something with her R hand she will drop it (but that can happen occasionally) No difficulty walking No change in speaking. The R eyes she states is a little blurry. The only thing that improves the pain is patches on her neck. Will improve on sleepy, worse at night. The pain will improve or go away in the AM. No change in her headaches. 6 months ago started ozempic and lost 10-15 lbs. Also had a lot of weight loss prior to that over the course of the prior year, lost 50lb over that period of time. No stopped medications, takes a lot of advils - daily, but no other medications. NEurologic Exam -? General: Laying comfortably in bed; in no acute distress. -? HENT: Normal oropharynx and mucosa. Normal external appearance of ears and nose. Exophthalmos. -? Neck: Supple, no pain or tenderness -? CV:? No peripheral edema. -? Pulmonary:? Normal respiratory effort. -? Ext: No cyanosis, edema, or deformity -? Skin: No rash. Normal palpation of skin.? -? Musculoskeletal: full range of motion; no joint tenderness. Normal digits and nails by inspection. No clubbing. -? NEURO: -? Mental Status: The patient was alert and oriented to time, place, and person. Normal recent/remote memory, concentration, and general fund of knowledge. -? Language: speech is clear.? Naming, repetition, fluency, and comprehension intact. -? Cranial Nerves:R pupil 2mm brisk, L pupil 4mm brisk. R ptosis, EOMI, visual reyna full, no facial asymmetry, facial sensation intact, hearing intact, tongue midline, no evidence of atrophy or fibrillations. -? Motor: normal bulk, tone, and strength throughout. No pronator drift or satelliting. Upper and lower extremities equal bilaterally. -? Detailed strength exam as performed by the nurse/KELLY and witnessed by the physician: R L SA 5 5 EE 5 5 EF 5 5 WE WF Dressage Instructor 5 5 HF 5- 5 KE KF 5 5 DF 5 5 PF -? Detailed reflex exam as performed by the nurse/KELLY and witnessed by the physician: R L Biceps Patellar Ankle Babinski down mute -? Tone: is normal and bulk is normal -? Sensation- Intact to light touch bilaterally, proprioception intact in UE and LE b/l -? Coordination: No dysmetria on [id number], finger follow finger or [id number]. -? Gait- deferred [facility] Medical History (Updated 04/06/25 @ 01:[address] Jeromy Ibarra, DO) History of Holter monitoring Depression Anxiety DVT (deep venous thrombosis) Non-smoker History of stress test History of echocardiogram Seasonal allergies Hypertension History of breast cancer Home Medications ?Medication ?Instructions ?Recorded ?Last Taken ?Type bupropion HCl 300 mg 24 hr tablet, 300 mg PO QHS DEPRESSION 12/19/24 04/05/25 History extended release semaglutide 1 mg/dose (4 mg/3 mL) 1 mg subcut TH WEIGHT LOSS 12/19/24 03/31/25 History subcutaneous pen injector zolpidem 5 mg tablet 10 mg PO QHS SLEEP 12/19/24 04/05/25 History Allergy/AdvReac Type Severity Reaction Status Date / Time azithromycin Allergy Anaphylaxis Verified 04/05/25 19:45 chlorhexidine (From Allergy Hives Verified 04/05/25 19:45 Hibiclens) iodine Allergy Hives Verified 04/05/25 19:45 povidone-iodine (From Allergy Hives Verified 04/05/25 19:45 Betadine) shellfish derived Allergy Anaphylaxis Verified 04/05/25 19:45 soap (From Betadine) Allergy Hives Verified 04/05/25 19:45 sumatriptan Allergy Rash Verified 04/05/25 19:45 morphine AdvReac Other Verified 04/05/25 19:45 ondansetron (From Zofran) AdvReac Constipatio Verified 04/05/25 19:45 n Family History Mother Breast cancer blood clots Depression Hypertension Osteoporosis Aunt Breast cancer Grandmother Breast cancer Surgical History (Updated 04/06/25 @ 01:[address] Jeromy Ibarra DO) History of lithotripsy History of hysterectomy History of breast reconstruction Hx of bilateral mastectomy History of lumpectomy of right breast History of right breast biopsy history of right fallopian tube removal History of arthroscopy of right knee Social History housing: house Smoking Status: Never smoker alcohol intake: current alcohol intake frequency: holidays/special occasions only Alcohol type: wine substance use type: does not use what type of physical activity do you participate in: none Vital Signs Vital Signs Vital Signs: 04/05/25 19:45 04/05/25 20:49 04/05/25 21:00 Temperature 98.6 F Temperature Source Temporal Pulse Rate 93 77 84 Respiratory Rate 18 16 18 Respiratory Effort Respiratory Depth Respiratory Pattern Blood Pressure 147/106 H 151/114 H 155/106 H Blood Pressure Mean 119 126 122 Blood Pressure Source Blood Pressure Position Blood Pressure Location Pulse Ox 99 99 100 Oxygen Delivery Method Room Air Room Air Room Air 04/05/25 22:00 04/05/25 23:00 04/06/25 00:00 Temperature Temperature Source Pulse Rate 95 78 71 Respiratory Rate 18 16 18 Respiratory Effort Respiratory Depth Respiratory Pattern Blood Pressure 141/98 H 128/79 H 147/101 H Blood Pressure Mean 112 95 116 Blood Pressure Source Blood Pressure Position Blood Pressure Location Pulse Ox 99 98 99 Oxygen Delivery Method Room Air Room Air Room Air 04/06/25 00:51 04/06/25 02:13 04/06/25 02:34 Temperature 98.6 F 98.3 F Temperature Source Oral Pulse Rate 74 74 Respiratory Rate 18 18 Respiratory Effort Normal Non-Labored Respiratory Depth Normal Respiratory Pattern Normal Blood Pressure 147/101 H 139/108 H Blood Pressure Mean 116 118 Blood Pressure Source Monitor Blood Pressure Position Semi-Fowlers Blood Pressure Location Left Arm Pulse Ox 98 99 Oxygen Delivery Method Room Air Room Air 04/06/25 06:01 Temperature 98.2 F Temperature Source Temporal Pulse Rate 83 Respiratory Rate 18 Respiratory Effort Respiratory Depth Respiratory Pattern Blood Pressure 125/81 H Blood Pressure Mean 95 Blood Pressure Source Blood Pressure Position Blood Pressure Location Pulse Ox 96 Oxygen Delivery Method Room Air Weight Weight: 101.2 kg Body Mass Index (BMI) 39.5 EEG Results Procedure Details EEG Procedure Details: MEGAN BAILEY is a 39 year old F with a past medical history of , who presents for evaluation of Electroencephalogram on DATE at TIME Lab / Micro Data 04/06/25 05:17 04/06/25 05:17 Labs: Laboratory Results - last 24 hr 04/05/25 21:02: WBC 7.6, RBC 4.73, Hgb 14.4, Hct 40.7, MCV 86.0, MCH 30.4, MCHC 35.4, RDW Std Deviation 37.3, RDW Coeff of Adwoa 11.9, Plt Count 294, MPV 9.2, Immature Gran % (Auto) 0.300, Neut % (Auto) 45.5 L, Lymph % (Auto) 42.9 H, [place] % (Auto) 8.0, Eos % (Auto) 2.6, Baso % (Auto) 0.7, Absolute Neuts (auto) 3.5, Absolute Lymphs (auto) 3.27, Nucleated RBC % 0, Sodium 140, Potassium 4.0, Chloride 104, Carbon Dioxide 25.8, Anion Gap 10, BUN 15, Creatinine 0.98, Estim Creat Clear Calc 86.93, Est GFR (MDRD) Non-Af 76, BUN/Creatinine Ratio 15.0, Glucose 89, Hemoglobin A1c 4.9, Calcium 9.8, Magnesium 2.0, Total Bilirubin 0.29, AST 22, ALT 15, Alkaline Phosphatase 76, Total Protein 7.1, Albumin 4.3, Globulin 2.8, Albumin/Globulin Ratio 1.5, Vitamin B12 383, TSH 2.010 04/05/25 21:02: TSH 2.050 04/06/25 03:15: Urine Color Yellow, Urine Clarity Clear, Urine pH 7.0, Ur Specific [place] 1.010, Urine Protein Negative, Urine Glucose (UA) Normal, Urine Ketones Negative, Urine Occult Blood Negative, Urine Nitrite Negative, Urine Bilirubin Negative, Urine Urobilinogen Normal, Ur Leukocyte Esterase Negative, Urine RBC 0 SEEN, Urine WBC 0 SEEN, Ur Squamous Epith Cells 0 SEEN, Urine Bacteria 0 SEEN, Urine Mucus 0 SEEN, Urine Opiates Screen NEGATIVE, U Buprenorphine Qual NEGATIVE, Ur Oxycodone Screen NEGATIVE, Urine Methadone Screen NEGATIVE, Urine Fentanyl Screen NEGATIVE, Ur Barbiturates Screen NEGATIVE, Ur Phencyclidine Scrn NEGATIVE, Ur Amphetamines Screen NEGATIVE, U Benzodiazepines Scrn NEGATIVE, Urine Cocaine Screen NEGATIVE, U Cannabinoids Screen NEGATIVE 04/06/25 05:17: WBC 5.4, RBC 4.72, Hgb 14.0, Hct 40.4, MCV 85.6, MCH 29.7, MCHC 34.7, RDW Std Deviation 36.7, RDW Coeff of Adwoa 11.8, Plt Count 301, MPV 9.3, Immature Gran % (Auto) 0.400, Neut % (Auto) 79.1 H, Lymph % (Auto) 19.0, [place] % (Auto) 1.1, Eos % (Auto) 0.0, Baso % (Auto) 0.4, Absolute Neuts (auto) 4.3, Absolute Lymphs (auto) 1.03, Nucleated RBC % 0, Sodium 138, Potassium 4.2, Chloride 106, Carbon Dioxide 19.5 L, Anion Gap 13, BUN 12, Creatinine 0.86, Estim Creat Clear Calc 99.71, Est GFR (MDRD) Non-Af 88, BUN/Creatinine Ratio 14.2, Glucose 146 H, Calcium 9.3, Phosphorus 1.5 L, Total Bilirubin 0.24, AST 22, ALT 14, Alkaline Phosphatase 78, Total Protein 7.0, Albumin 4.0, Globulin 3.0, Albumin/Globulin Ratio 1.3, Triglycerides 39, Cholesterol 176, LDL Cholesterol, Calc 98, VLDL Cholesterol 8, HDL Cholesterol 70, Cholesterol/HDL Ratio 2.51, Serum Folate 6.90, Ethyl Alcohol < 10.1 Imaging Radiology Impression Head/Neck CTA 04/05/25 22:30 IMPRESSION: 1. Normal CTA of the head and neck. No aneurysm. 2. Chronic left ostiomeatal unit sinus disease. Reading Location: [id number] Active Medications Active Medications Active Medications: Current Medications Generic Name Dose Route Start Last Admin Trade Name Freq PRN Reason Stop Dose Admin Al Hydroxide/Mg Hydroxide 30 ml 04/06/25 01:34 Mag Hydrox/Al Hydrox/Simeth 30 Ml Udc PO Q6H PRN PRN Gastric Burning Albuterol Sulfate 2.5 mg 04/06/25 01:34 Albuterol 2.5 Mg/3 Ml Vial.Neb. INHALATION Q2H PRN PRN SOB &/OR WHEEZING Bupropion HCl 300 mg 04/06/25 22:00 Bupropion (Xl) 300 Mg Tablet.Xl PO QHS [facility] Enoxaparin Sodium 40 mg 04/06/25 10:00 Enoxaparin 40 Mg/0.4 Ml Syringe SC DAILY JOVAN Hydralazine HCl 5 mg 04/06/25 01:34 Hydralazine 20 Mg/Ml Vial IV TID PRN PRN SBP GREATER THAN 160 Protocol Sodium Chloride 1,000 mls @ 70 mls/hr 04/06/25 01:15 04/06/25 02:29 IV 04/06/25 15:32 70 mls/hr .[id number] JOVAN Administration Ceftriaxone Sodium 1 gm in 50 mls @ 100 mls/hr 04/06/25 01:34 04/06/25 03:00 Rocephin IV Infused 2200 JOVAN Infusion Pantoprazole Sodium 40 mg/ 100 mls @ 330 mls/hr 04/06/25 01:34 04/06/25 04:00 Sodium Chloride IV Infused 2200 OJVAN Infusion Sodium Chloride 250 mls @ 15 mls/hr 04/06/25 01:47 IV .[id number] PRN Saline Flush Sodium Chloride 250 mls @ 15 mls/hr 04/06/25 01:47 IV .[id number] PRN Additional IVPB Infusion Ketorolac Tromethamine 15 mg 04/06/25 01:34 04/06/25 03:31 Ketorolac 15 Mg/Ml Vial IV 04/11/25 01:35 15 mg TID PRN PRN Administration Pain 1-10 or Fever Lorazepam 1 mg 04/06/25 02:02 Lorazepam 2 Mg/Ml Syringe IV X1 PRN MRI Magnesium Hydroxide 30 ml 04/06/25 01:34 Magnesium Hydroxide 30 Ml Udc PO DAILY PRN PRN Constipation Methylprednisolone Sodium Succinate 40 mg 04/06/25 10:00 Methylprednisolone Sod Succ 40 Mg/Ml Vial IV BID JOVAN Sodium Chloride 10 - 40 ml 04/06/25 01:47 0.9% Saline Lock 10 Ml Syringe IV UD PRN SALINE FLUSH Zolpidem Tartrate 10 mg 04/06/25 22:00 Zolpidem Tartrate 5 Mg Tablet PO QHS JOVAN
[2025-04-06] MEDS: 0.9% Saline Lock 10 ML Syringe IV ×3 (09:58→21:30)
--- NOTE | 2025-04-06 14:30 | CT_ITS ---
PROCEDURE: CT CHEST WITH CONTRAST 04/06/2025 REASON FOR EXAM: BREAST CANCER, TAMARA'S SYNDROME TECHNIQUE: CT CHEST WITH CONTRAST Coronal and Sagittal reconstruction series were provided. CONTRAST: Isovue 370 VOLUME: 92 mL One or more dose reduction techniques were used (e.g., Automated exposure control, adjustment of the mA and/or kV according to patient size, use of iterative reconstruction technique). RADIATION DOSE SUMMARY: DLP: 578.74 mGycm COMPARISON: CT chest 12/11/2020. FINDINGS: LOWER NECK/AXILLA: Visualized thyroid is unremarkable. No enlarged axillary or subpectoral lymph nodes. There is amorphous soft tissue masslike density measuring approximately 4 x 2.5 cm in axial plane (S2 image 16) which may represent conglomerate right supraclavicular/superior mediastinal lymphadenopathy or metastatic nodular implant. The traversing right internal jugular vein at the confluence of the SVC is abruptly nonopacified and may be either compressed or invaded by the soft tissue mass. Traversing right subclavian and proximal right common carotid arteries are patent without luminal narrowing. LUNGS/PLEURA: Clear. No suspicious focal nodules. No airspace consolidation or findings of pulmonary edema. No pneumothorax or pleural effusions. The central airways are patent. MEDIASTINUM: No enlarged mediastinal or hilar lymph nodes. HEART: Nonenlarged. No pericardial effusion. No significant coronary artery calcification. THORACIC AORTA: Normal in course and caliber without atherosclerotic disease. UPPER ABDOMEN: Hepatic steatosis. Otherwise unremarkable. MUSCULOSKELETAL: Unremarkable osseous structures. No osseous lytic or blastic lesion appreciated. Postoperative changes of bilateral breast implants. CT/Chest WITH Contrast IMPRESSION: Soft tissue masslike lesion at the medial right supraclavicular/superior medias tinal jacquelyn station as described above may represent pathologic lymph node conglomerate or metastatic implant. There is co mpression or possibly invasion of the traversing right internal jugular vein at the SVC confluence. This may be the cause for pa tient's Tamara's syndrome symptoms. Further workup recommended. Reading Location: [facility]
--- NOTE | 2025-04-06 18:16 | PCM.HOSP.N ---
Hospitalist Note Patient was seen and examined today, I talked with teleneurology about her care. 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 CT of the chest with contrast was performed today, there was noted to be a soft tissue masslike lesion at the medial right supraclavicular/superior mediastinal jacquelyn station, this could represent a pathological lymph node conglomerate or metastatic implant. I talked informally with vascular surgery (Dr. Esqueda) he said by the description of the CT findings it does not sound like an emergency to transfer the patient to go a facility with a vascular surgeon but he urged me to get in touch with oncology-I put a call into Dr. Marion-and at the time of this dictation he has not gotten back with me. I will attempt to get a hold of him tomorrow if he does not call me tonight. Patient will get additional studies tomorrow-an MRI of the cervical spine and MRI of the thoracic spine.
[2025-04-07] VITALS (7 sets, daily range): BP systolic 128–150; BP diastolic 91–114; PULSE 86–100; RESP 15–18; TEMP 36.2–36.6; O2SAT 94–99; BMI 41.9
[2025-04-07] MEDS: 0.9% Saline Lock 10 ML Syringe IV ×3 (02:18→21:55)
--- NOTE | 2025-04-07 11:41 | MRI_ITS ---
PROCEDURE: SPINE THORACIC W/WO CONTRAST 04/07/2025 REASON FOR EXAM: BREAST CANCER, TAMARA'S SYNDROME TECHNIQUE: Thoracic spine MRI without and with intravenous gadolinium-based contrast. Multiplanar and multisequence images were obtained. CONTRAST: Roxy scan VOLUME: 20mL irrelevant gauge IV FINDINGS: Normal thoracic vertebral body height and alignment. Normal thoracic spinal cord. Normal marrow signal. No paravertebral mass lesions. No syrinx or demyelination. No pleural effusions. No pathologic enhancement on postcontrast images. MRI/Spine Thoracic W/WO Contrast IMPRESSION: Study within normal limits. Reading [facility]
--- NOTE | 2025-04-07 12:30 | MRI_ITS ---
PROCEDURE: SPINE CERVICAL W/WO CONTRAST 04/07/2025 REASON FOR EXAM: TAMARA'S SYNDROME, BREAST CANCER TECHNIQUE: SPINE CERVICAL W/WO CONTRAST Multiplanar and multisequence images were obtained with intravenous gadolinium-based contrast administration. CONTRAST: Roxy scan VOLUME: 20 mL FINDINGS: No pathologic marrow replacement. No compression deformity. Normal spinal cord. No Chiari deformity. No marrow edema. No abnormal enhancement. On T1 weighted images, no pathologic marrow abnormality. No soft tissue masses are identified in the neck below the routine cervical spine images. MRI/Spine Cervical W/WO Contrast IMPRESSION: Study within normal limits. Reading Location[facility]
--- NOTE | 2025-04-07 19:06 | PN.HOSP_ITS ---
Reason for Visit Chief Complaint: Drooping Right Eye and Pain in the Lower Right Neck with Migraine Headache. Subjective Subjective Patient was seen and examined today, I explained to her that she had a mass over her clump of lymph nodes in the supraclavicular area, I checked with radiology today and they thought that they were going to be able to biopsy of this area under ultrasound tomorrow. Patient is okay with this. Patient had an MRI of her cervical spine and thoracic spine, the results have not resulted yet. Patient was called by her oncologist office and she found that she had an abnormal CT from the oncologist office, I apologized to her but I was waiting for her imaging studies to be complete until I went over everything with her and she understood this. Objective Data Objective Data Vital Signs: Vital Signs Temp Pulse Resp BP Pulse Ox O2 Del Method 97.2 F L 86 16 137/91 H 97 Room Air 04/07/25 16:06 04/07/25 16:06 04/07/25 16:06 04/07/25 16:06 04/07/25 16:06 04/07/25 16:06 Oxygen Delivery Method Room Air Weight: 107.3 kg Body Mass Index (BMI) 41.9 Intake & Output: Intake and Output for Last 24 Hours 04/05/25 04/06/25 04/07/25 23:59 23:59 23:59 Intake Total 1000 / 1000 1371.5 / 1371.5 Balance 1000 / 1000 1371.5 / 1371.5 Lab / Micro Data 04/06/25 05:17 04/06/25 05:17 Physical Exam Const alert, oriented x3, no apparent distress and healthy appearing General Appearance: cooperative, well kempt and well developed Orientation / Consciousness: awake, oriented to person, oriented to place and oriented to time HEENT normocephalic and moist oral mucous membranes Eyes EOMs intact bilaterally Eyes Narrative: Patient has slight drooping of the right upper eyelid, there is constriction of the right pupil Neck supple, no JVD, thyroid normal and no carotid bruits General: trachea midline Resp normal respiratory effort, no retractions, no use of accessory muscles and clear to auscultation bilaterally Auscultation: Negative for rales, rhonchi or wheezes Cardio regular rate, regular rhythm, S1 normal heart sound, S2 normal heart sound, no murmurs, no rub and no gallops GI normal to inspection, nondistended, normoactive bowel sounds, soft to palpation, non-tender and non-distended Extremity no clubbing, cyanosis or edema Skin no rashes or lesions noted General Skin Exam: no breakdown Neuro oriented x3, CN's II-XII intact bilaterally, no focal motor deficits and no sensory deficits noted Sensorium / Orientation: awake and alert Speech: speech normal Psych affect normal Assessment & Plan Assessment/Plan (1) Horners syndrome: PLAN: Plan 1. 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
[2025-04-07] MEDS: buPROPion (XL) 300 MG TABLET.XL PO (20:13)
[2025-04-08] VITALS (15 sets, daily range): BP systolic 122–179; BP diastolic 71–117; PULSE 76–93; RESP 12–18; TEMP 36–36.5; O2SAT 94–100; BMI 40.4
[2025-04-08] MEDS: 0.9% Saline Lock 10 ML Syringe IV ×2 (06:58→13:31)
--- NOTE | 2025-04-08 09:27 | US_ITS ---
PROCEDURE: ULTRA NEEDLE BX/LYMPH NODE 04/08/2025 REASON FOR EXAM: Right SUPRACLAVICULAR MASS, HISTORY OF BREAST CANCER TECHNIQUE: ULTRA NEEDLE BX/LYMPH NODE COMPARISON: Chest CT 04/06/2025. FINDINGS: Conscious sedation was employed for this procedure, which started at 1220 hours and ended at 1245 hours. A total of 4 mg intravenous Versed and 100 mcg of intravenous fentanyl was used. Initial images show a hypoechoic lobulated appearance consistent with the recent comparison CT examination, consistent with abnormal supraclavicular adenopathy. Procedure: Following informed consent, and using standard sterile technique, a sonographically guided core biopsy the area of concern of the right supraclavicular area was performed via an oblique left-sided approach. 2% lidocaine local anesthesia was followed by placement of the a 10 cm 20 gauge Curriculett core biopsy system. 4 samples were then obtained, and given to pathology. No complication was encountered, and patient left the department in good condition without significantly complaints. US/Ultra Needle BX/Lymph Node IMPRESSION: Successful ultrasound-guided core biopsy of right supraclavicular abnormal mass . Pathology results pending. Reading Location: [place] [address]
--- NOTE | 2025-04-08 12:00 | ASPIGT_PTH ---
PATIENT: MEGAN VALERO LOC: PCU U#:[id number] AGE/SX: 39/F ROOM: [facility] RE04/06/[address]: Dr. Grant Mccall DO : 1985 BED: 1 DIS: 04/08/2025 SPEC #: [id number] RECD: 04/08/25 12:15 STATUS: FEDERICO REQ #: [id number] VINCENT: 04/08/25 12:[address]: Grant Mccall DEPT: SURGICAL PATHOLOGY RECD BY: Terell Jiménez ENTERED: 04/08/25 13:37 SP TYPE: ASP RAD OTHR DR: MD Dr. Jeromy Contreras DO Dr. Paul Masci, DO Tissues: A - LYMPH NODE BIOPSY Procedures: FNA Specimen Adequacy Immunohistochemical Stains Special Stain Group II Surgery Specimen Level V Imprint (control) IHC Stain ADDITIONAL HEADER OPERATION: Ultrasound guided biopsy - right neck lymph node PRE-OP DIAGNOSIS: Right neck lymph node TISSUE SUBMITTED: A- Right neck lymph node biopsy MICROSCOPIC DIAGNOSIS A. Lymph node, right neck, ultrasound-guided core biopsy: - Malignant neoplasm consistent with metastatic carcinoma - see note. - No lymphoid tissue seen. Note: The stated history of invasive carcinoma with ductal and lobular features is noted. The current tumor is positive for CK7, PEREZ-3, ER (60% intermediate intensity) and TN (30% intermediate intensity); and negative for E-cadherin, CK20, TTF-1, CDX2 and Villin. The histologic and immunophenotypic findings are consistent with metastatic lobular breast carcinoma. HER2 and Ki67 IHC are pending and will be reported in an addendum. COMMENT The specimen is evaluated at the time of biopsy by Dr. Newby. Immediate Evaluation = 1. Adequate. 3. Adequate, suspicious for carcinoma. MICROSCOPIC DESCRIPTION Slides are reviewed. All matched controls reacted appropriately. These tests were developed and their performance characteristics determined by [facility]. They may not have been cleared or approved by the U.S. Food and Drug Administration. The FDA has determined that such clearance or approval is not necessary.? The above immunohistochemical?markers and/or special stains have been reviewed by the Pathologist. GROSS DESCRIPTION Received in formalin labeled the patient's name and date of are multiple sal-pink to white tissue cores, 0.5 cm to 1.0 cm in length by 0.1 cm in diameter. Touch preparations are made. Entirely submitted in 2 cassettes. IN 04/08/2025 CPT:63451,21526,[id number],[id number] ADDENDUM ADDENDUM ADDENDUM ADDENDUM ADDENDUM ADDENDUM ADDENDUM 04/17/2025 09:55 ADDENDUM 06/12/2025 10:07 ADDENDUM 04/17/2025 09:55 ADDENDUM 04/17/2025 09:55 ADDENDUM 04/17/2025 09:55 ADDENDUM 04/17/2025 09:55 This addendum is to report the additional IHC stains: BTB1TIG: negative (score 0) Ki67: 50% E-cadherin (A1, A2): negative This addendum is added to incorporate an outside pathology consultation report. ONCOTYPE DX - [employer] REPORT: TEST IS CANCELLED - REASON: Does Not Meet Criteria (per Physician) Please see complete above mentioned consultation report in EMR
[2025-04-08] MEDS: Midazolam 2 MG/2 ML Syringe (12:20)
[2025-04-08] MEDS: fentaNYL 100 MCG/2 ML Ampul (12:22)
[2025-04-08] MEDS: Midazolam 2 MG/2 ML Syringe IV ×2 (12:29→12:35)
[2025-04-08] MEDS: Lidocaine 2% (20 ml mdv) 20 ML Vial INFILT (12:30)
[2025-04-08] MEDS: fentaNYL 100 MCG/2 ML Ampul IV (12:40)
--- NOTE | 2025-04-08 14:00 | CASEMGMT ---
RN CM Face to Face with patient for initial transition planning/care coordination assessment. RN CM introduced self and role at [facility]. Patient lying in bed, alert and oriented. Patient willing to participate in assessment and is able to answer all questions appropriately. Care providers, pharmacy, and demographics verified. Strata: 3 PCP: Ailyn Specialists: Sanam, oncologist; Preferred Pharmacy: [facility]; [facility] Retail at discharge Insurance: MMO Prescription Benefit: yes Living Will/HPOA: yes, daughter Elina Lennon LNOK: daughter, Aunt Living Arrangements: Patient lives with adult daughter in a 2 story home. Patient is independent and able to ambulate stairs. Transportation: self, daughter DME/HHC: Patient denies DME in the home. No previous HHC or SNF. Patient wishes to discharge home, denies need for home health at this time. Patient states she has no further needs or concerns at this time. CM to follow for discharge planning needs that may arise. Disposition Plan: Patient to discharge home with family support and follow-up plans in place. Nina FARMER, RN, CM
--- NOTE | 2025-04-08 15:01 | PCM.DC ---
Discharge Instructions DC O2, CPAP, BIPAP needs Home O2 Discharge instructions: No Dressing / Incision Discharge Activity: Return to Normal Activity Weight Bearing Status: Full weight bearing Follow Up Care Test Results: Test results from this visit will be discussed in further detail at your follow-up appointment, if applicable. Discharge Plan Admission Admit Date/Time: 04/06/25 01:01 Primary Reason for Your Visit: Elif's syndrome Attending Provider: Grant Mccall Primary Care Provider: Mallory Robertson Consulting Providers: Jeromy Ibarra Instructions Patient Instructions: RAD RN Image-Guided Biopsy, RAD RN Procedural Sedation Discharge Orders/Prescriptions Prescriptions: New oxycodone 5 mg tablet 5 mg PO Q6H PRN (Reason: pain) 7 Days Qty: 40 0RF Rx Instructions: 5-10 mg q6H prn pain cyclobenzaprine 5 mg Tablet 5 mg PO Q8 PRN (Reason: Muscle Spasm) Qty: 40 1RF Rx Instructions: 5-10 mg q8 H prn muscle spasm oxycodone 5 mg tablet 5 mg PO Q6H PRN (Reason: pain) 7 Days Qty: 40 0RF Rx Instructions: 5-10 mg Q6H prn pain Continued zolpidem 5 mg tablet 10 mg PO QHS bupropion HCl 300 mg tablet extended release 24 hr 300 mg PO QHS semaglutide 1 mg/dose (4 mg/3 mL) pen injector 1 mg subcut TH Patient Comments: takes on Referrals / Follow Up: Mallory Robertson MD [Primary Care Provider] - Ross Marion DO [Med Staff - Active Staff] - See Referral Note (As instructed) Disposition Disposition (needs filled in before D/C Order can be placed): Home, Self Care
--- NOTE | 2025-04-08 15:23 | DS.PCM_ITS ---
Providers Date of Admission: 04/06/25 Date of Discharge: 04/08/25 Primary Care Physician: Mallory Robertson MD Reason For Visit: TAMARA'S SYNDROME WITH RIGHT NECK Diagnosis Discharge Diagnosis (1) Horners syndrome: Status: Acute Code(s): G90.2 - Tamara's syndrome Plan 1. 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- patient will undergo biopsy tomorrow under ultrasound #2 chronic depression-patient is on Wellbutrin #3 past history of breast cancer-there is a suspicion that her supraclavicular mass may be secondary to recurrent breast cancer, again this will be biopsied under ultrasound Total clinical time spent by myself addressing the patient's medical issues, reviewing all of her data, and collaborating with the patient's care team: 35 minutes Medications at Discharge Home Medications bupropion HCl 300 mg 24 hr tablet, extended release 300 mg PO QHS DEPRESSION 12/19/24 semaglutide 1 mg/dose (4 mg/3 mL) subcutaneous pen injector 1 mg subcut TH WEIGHT LOSS 12/19/24 zolpidem 5 mg tablet 10 mg PO QHS SLEEP 12/19/24 cyclobenzaprine 5 mg tablet 5 mg PO Q8 PRN Muscle Spasm #40 tabs 04/08/25 oxycodone 5 mg tablet 5 mg PO Q6H PRN pain 7 days #40 tabs 04/08/25 Hospital Course Procedures - (Biopsy of right supraclavicular mass) Summary of Care Provided Minutes Spent on Discharge: 31 Hospital Course: This 39-year-old white female was seen in the emergency room at [facility] with complaints of right eyelid drooping, right eye pupil smaller than the left eye pupil, stiff neck and blurry vision x 24 hours. Examination in the emergency room revealed the patient to have evidence of Tamara syndrome, she was admitted to PCU and seen in consultation by neurology, extensive x-rays were performed on the patient including an MRI of the brain with contrast, and MRI of the cervical and thoracic spine, face and neck MRI, and a head and neck CTA. These x-rays were unremarkable for metastatic disease process, CT of the chest with contrast was ordered and there was noted to be a soft tissue masslike lesion at the medial right supraclavicular/superior mediastinal jacquelyn station. A neoplasm was possible versus lymphadenopathy. Patient underwent a core biopsy of the area for tissue analysis, she was given IV and p.o. analgesics during her hospitalization. I was in touch with her outpatient oncologist-patient had a past history of breast cancer and was treated with mastectomy and chemo. Patient had no history of radiation for the breast cancer. On 04/08/25, patient was seen and examined: On examination she appeared in good health and spirits, she does not appear to be in any distress. Vital signs as documented. Skin warm and dry and without overt rashes. Neck without JVD, thyroid appears normal, trachea is midline, neck is supple. Lungs clear, normal air movement was noted. Heart exam notable for regular rhythm, normal sounds and absence of murmurs, rubs or gallops. Abdomen unremarkable and without evidence of organomegaly, masses, or abdominal aortic enlargement, bowel sounds are present in all 4 quadrants, no abdominal tenderness was noted. Extremities patient had some edema of the arms bilaterally, no cyanosis was noted, no clubbing was noted. Neuro: Cranial nerves II through XII are grossly intact, no focal motor deficits were noted, sensation to light touch and pinprick is intact, motor exam 5/5 throughout. Psych: Patient is alert and oriented x3, she does not appear anxious or depressed, she does not appear agitated. Patient appears stable for discharge home on 04/08/2025. Weight / BMI Weight Weight: 103.4 kg Body Mass Index (BMI) 40.4 ABG / Lab / Microbiology Data 04/06/25 05:17 04/06/25 05:17 Radiography Diagnostic Testing: Radiology Impression Thoracic Spine MRI 04/07/25 11:41 IMPRESSION: Study within normal limits. Reading [facility] Cervical Spine MRI 04/07/25 12:30 IMPRESSION: Study within normal limits. Reading [facility] Lymph Node Biopsy Ultrasound 04/08/25 09:27 IMPRESSION: Successful ultrasound-guided core biopsy of right supraclavicular abnormal mass. Pathology results pending. Reading Location: [place] [address] D/C Instructions Weight Bearing Status: Full weight bearing DC O2, CPAP, BIPAP Needs Home O2 Discharge instructions: No Meaningful Use Info Meaningful Use Meaningful Use Diagnoses (Choose all that apply): None applicable Discharge Plan Admission Admit Date/Time: 04/06/25 01:01 Primary Reason for Your Visit: Tamara's syndrome Attending Provider: Grant Mccall Primary Care Provider: Mallory Robertson Consulting Providers: Jeromy Ibarra Instructions Patient Instructions: RAD RN Image-Guided Biopsy, RAD RN Procedural Sedation Discharge Orders/Prescriptions Prescriptions: New cyclobenzaprine 5 mg Tablet 5 mg PO Q8 PRN (Reason: Muscle Spasm) Qty: 40 1RF Rx Instructions: 5-10 mg q8 H prn muscle spasm oxycodone 5 mg tablet 5 mg PO Q6H PRN (Reason: pain) 7 Days Qty: 40 0RF Rx Instructions: 5-10 mg Q6H prn pain Continued zolpidem 5 mg tablet 10 mg PO QHS bupropion HCl 300 mg tablet extended release 24 hr 300 mg PO QHS semaglutide 1 mg/dose (4 mg/3 mL) pen injector 1 mg subcut TH Patient Comments: takes on Referrals / Follow Up: Mallory Robertson MD [Primary Care Provider] - Ross Marion DO [Med Staff - Active Staff] - See Referral Note (As instructed PER DOCTORS OFFICE THEY WILL REACH OUT AND SCHEDULE THE APPOINTMENT WITH YOU) Disposition Disposition (needs filled in before D/C Order can be placed): Home, Self Care Charges/Coding Visit Charges Inpatient E&M: 35752 Disch Hosp >30min
--- NOTE | 2025-04-08 15:55 | CASEMGMT ---
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 Robertson's office. CON[facility] C[employer]OS in to update patient, patient states she did receive letter regarding being dismissed. [facility] [facility] provided PCP list, patient voiced appreciation and had no further questions or concerns.
--- NOTE | 2025-04-08 16:45 | NURSING ---
pt called slack line yarder and told her she wanted to leave and not wait to see what the md said.
[2025-04-09 14:08] LABS: Vitamin D 1,25-Dihydroxy 74.7 pg/mL (24.8-81.5)
== END 2025-04-08 17:09 | disposition home or self-care (01) | DRG 74 ==
LOC: ED 21:01 → PCU 04-06 01:15
PROVIDERS: Admitting Provider Internal Medicine; Emergency Provider Emergency Medicine; PCP Family Medicine; Visit Provider Internal Medicine
DX: G90.2 Horner's syndrome (principal); C77.0 Secondary and unspecified malignant neoplasm of lymph nodes of head, face and neck; F32.A Depression, unspecified; I10 Essential (primary) hypertension; E66.812 Obesity, class 2; J32.9 Chronic sinusitis, unspecified; G43.911 Migraine, unspecified, intractable, with status migrainosus; I89.0 Lymphedema, not elsewhere classified; G62.9 Polyneuropathy, unspecified; J30.2 Other seasonal allergic rhinitis; F41.9 Anxiety disorder, unspecified; Z68.39 Body mass index [BMI] 39.0-39.9, adult; Z17.0 Estrogen receptor positive status [ER+]; Z86.718 Personal history of other venous thrombosis and embolism; Z79.899 Other long term (current) drug therapy
CPT/HCPCS: 36415; 70496; 70498; 70543; 70553; 71260; 72156; 72157; 76942; 80053; 80061; 80307; 81001; 82077; 82607; 82652; 82746; 83036; 83735; 84100; 84443; 85025; 88172; 88307; 88313; 88341; 88342; 94668; 99156; 99285; A9575; Q9967; A4216

== ENCOUNTER 2025-04-08 18:48 | Emergency (ER) | payer OTHER, SELFPAY ==
[2025-04-08 18:49] VITALS: BP 134/98; PULSE 85; RESP 18; TEMP 36.9; O2SAT 98; BMI 40.3
--- NOTE | 2025-04-08 20:19 | EX.ED.UPPERE ---
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 She was discharged home with prescription for oxycodone for pain control. Has not had it. While she was in the hospital she was receiving prophylactic Lovenox but did not have any today because of her procedure. Tonight she has had progressive swelling and tightness of her right arm. She states she did not have any IVs or procedures in her right arm. She is having some mild pain in her neck from her biopsy but denies any swelling of her neck or chest wall. Denies any shortness of breath or difficulty breathing. Denies any numbness or tingling. States that her right arm does feel tight. No injuries reported. No other complaints or concerns at this time. [facility] Medical History History of Holter monitoring Depression Anxiety DVT (deep venous thrombosis) Non-smoker History of stress test History of echocardiogram Seasonal allergies Hypertension History of breast cancer Home Medications ?Medication ?Instructions ?Recorded ?Last Taken ?Type bupropion HCl 300 mg 24 hr tablet, 300 mg PO QHS DEPRESSION 12/19/24 04/05/25 History extended release semaglutide 1 mg/dose (4 mg/3 mL) 1 mg subcut TH WEIGHT LOSS 12/19/24 03/31/25 History subcutaneous pen injector zolpidem 5 mg tablet 10 mg PO QHS SLEEP 12/19/24 04/05/25 History cyclobenzaprine 5 mg tablet 5 mg PO Q8 PRN Muscle Spasm #40 04/08/25 Unknown Rx tabs oxycodone 5 mg tablet 5 mg PO Q6H PRN pain 7 days #40 04/08/25 Unknown Rx tabs Allergy/AdvReac Type Severity Reaction Status Date / Time azithromycin Allergy Anaphylaxis Verified 04/08/25 18:49 chlorhexidine (From Allergy Hives Verified 04/08/25 18:49 Hibiclens) iodine Allergy Hives Verified 04/08/25 18:49 povidone-iodine (From Allergy Hives Verified 04/08/25 18:49 Betadine) shellfish derived Allergy Anaphylaxis Verified 04/08/25 18:49 soap (From Betadine) Allergy Hives Verified 04/08/25 18:49 sumatriptan Allergy Rash Verified 04/08/25 18:49 morphine AdvReac Other Verified 04/08/25 18:49 ondansetron (From Zofran) AdvReac Constipatio Verified 04/08/25 18:49 n Family History Mother Breast cancer blood clots Depression Hypertension Osteoporosis Aunt Breast cancer Grandmother Breast cancer Surgical History History of lithotripsy History of hysterectomy History of breast reconstruction Hx of bilateral mastectomy History of lumpectomy of right breast History of right breast biopsy history of right fallopian tube removal History of arthroscopy of right knee Social History housing: house Smoking Status: Never smoker alcohol intake: current alcohol intake frequency: holidays/special occasions only Alcohol type: wine substance use type: does not use what type of physical activity do you participate in: none ROS ROS ED Constitutional Constitutional ED: Denies chills or fever(s) Eyes Eyes: Reports blurry vision right (For the past week associated with Elif syndrome) Cardiovascular Cardiovascular: Denies chest pain Respiratory/Chest Respiratory/Chest: Denies cough or dyspnea Musculoskeletal Musculoskeletal: Reports other Details: Right upper extremity pain and swelling Integumentary Denies rash Neurologic Neurologic: Denies paresthesias or weakness Hematologic/Lymphatic Hematologic/Lymphatic: Denies easy bleeding or easy bruising EXAM Physical Exam Const Vital Signs: 04/08/25 18:49 04/08/25 19:09 Temperature 98.4 F Temperature Source Oral Pulse Rate 85 Respiratory Rate 18 Respiratory Effort Normal Non-Labored Respiratory Pattern Normal Blood Pressure 134/98 H Blood Pressure Mean 110 Pulse Ox 98 Oxygen Delivery Method Room Air Positive well nourished and well developed General Appearance ED: well developed and NAD HEENT Reports moist mucous membranes normocephalic and atraumatic Eyes PERRL Neck full ROM and supple Neck Narrative: Bandage at the right lower anterior neck. There are some dried blood noted on it but no signs of active bleeding. No expanding hematoma to the area. Normal phonation. Chest Wall inspection of chest normal and palpation of chest normal Chest Narrative: No chest wall crepitus Resp normal respiratory effort and clear to auscultation bilaterally Cardio regular rate and regular rhythm GI non-tender and non-distended Extremity full ROM Extremity Narrative: Nonpitting edema of the right upper extremity with compared to the left. There is mild swelling of the hand as well. Compartments are soft. No passive range of motion pain. No associated warmth or redness. No bony deformity or tenderness. 2+ radial pulse of the right hand General Extremety ED: Yes edema General Extremity: edema Neuro oriented x3, moves all extremities, no focal motor deficits and no sensory deficits noted Sensorium / Orientation: alert Psych mental status grossly normal Skin Lesions: no lesions Rashes: no rashes MDM MDM MDM Narrative Medical decision making narrative: Patient evaluated for atraumatic swelling of her right upper extremity. Does have a history mastectomy and lymph node removal on that side but she is not having swelling. Was discharged today after having a biopsy of the left neck max which was performed because of new onset of Elif syndrome. Patient has good distal pulses. She does have swelling however her compartments are soft. Low suspicion for acute vascular occlusion or compartment syndrome. She does not have any expanding hematoma or abnormalities in her biopsy site so I do not suspect an acute complication from that. Is given a dose of oxycodone for pain control emergency room. Unfortunately do not have vascular ultrasound to perform a DVT study of the upper extremity (does have a history of DVTs). She was on prophylactic Lovenox while in the hospital but did not have any today because of her biopsy. Bedside ultrasound performed by myself visualized basilic veins as well as veins at the AC fossa and in the forearm and I did not appreciate any clots they were all compressible. I suspect this is more lymphedema. She did receive IV fluids in the hospital and she could be having some third spacing that is worse in this arm because of her prior surgical history. Irregardless she is given a weight-based dose of Lovenox prophylactically and and orders placed for her to have an outpatient venous duplex of her right upper extremity tomorrow. An Lenard wrap is applied to her arm to help with the swelling. She has pain medication at home. She is comfortable with this plan of care. Is given return precautions to the emergency room. Discharged home in stable condition. Discharge Plan Triage Chief Complaint: Edema ED Provider: Nicci Layton Dx/Rx/DC Orders Clinical Impression: Edema of right upper extremity, Hx of bilateral mastectomy, History of deep vein thrombosis Instructions: ED Peripheral Edema, Unilateral Prescriptions: No Action cyclobenzaprine 5 mg Tablet 5 mg PO Q8 PRN (Reason: Muscle Spasm) Qty: 40 1RF Rx Instructions: 5-10 mg q8 H prn muscle spasm oxycodone 5 mg tablet 5 mg PO Q6H PRN (Reason: pain) 7 Days Qty: 40 0RF Rx Instructions: 5-10 mg Q6H prn pain zolpidem 5 mg tablet 10 mg PO QHS bupropion HCl 300 mg tablet extended release 24 hr 300 mg PO QHS semaglutide 1 mg/dose (4 mg/3 mL) pen injector 1 mg subcut TH Patient Comments: takes on Other Ambulatory Orders: Venous Duplex US, Unilateral (Stat) Facility: [facility] - Location: [facility] Ordered By: Dr. Nicci Layton Primary Care Provider: Mallory Robertson Referrals: Mallory Robertson MD [Primary Care Provider] - Activity Restrictions/Additional Instructions: Try to elevate the arm, wear Lenard wrap and take pain medication as prescribed. You have been given a dose of therapeutic Lovenox in case this is a DVT. Please return for a formal ultrasound of your arm tomorrow as instructed. The bedside ultrasound did not show an obvious blood clot. If you have worsening symptoms please return to the emergency room. If you do not have a blood clot I suspect the swelling is secondary to lymphedema and from the IV fluid you received in the hospital. Print Language: Nepali Disposition Disposition: Home, Self Care Discharge Date/Time: 04/08/25 20:50
[2025-04-08 20:42] VITALS: BP 134/91; PULSE 87; RESP 16; TEMP 36.8; O2SAT 99
== END 2025-04-08 20:50 | disposition home or self-care (01) ==
PROVIDERS: Emergency Provider Emergency Medicine; PCP Family Medicine; Visit Provider Emergency Medicine
DX: R60.0 Localized edema (principal); Z86.718 Personal history of other venous thrombosis and embolism; I10 Essential (primary) hypertension; Z85.3 Personal history of malignant neoplasm of breast; Z79.85 Long-term (current) use of injectable non-insulin antidiabetic drugs; Z90.13 Acquired absence of bilateral breasts and nipples
CPT/HCPCS: 96372; 99282

== ENCOUNTER → 2025-04-09 | Outpatient (CLI) | payer OTHER, SELFPAY ==
--- NOTE | 2025-04-09 12:45 | VDUE_ITS ---
Reason For Study Reason For Study: Right arm swelling Right Proximal Right jugular vein is spontaneous, widely patent, phasic, with no intraluminal echogenicity noted. Right subclavian vein is spontaneous, widely patent, phasic, with no intraluminal echogenicity noted. Right Lower Arm Right radial vein is compressible. Right ulnar vein is compressible. Right Arm Right axillary vein is spontaneous, patent, phasic, competent, compressible and demonstrates augmentation. Right brachial vein is compressible. Right cephalic vein is compressible. Right basilic vein is compressible. Procedure This was a unilateral right upper extremity venous doppler examination. Exam performed in department. A preliminary report was called and/or faxed to Dr. Marion. VL/Venous Duplex US, Unilateral Interpretation Summary Deep veins of the right upper extremity are patent and compressible segmentally . There is no evidence of deep vein thrombosis. The superficial veins of the right upper extremity, the basilic and cephalic veins, are patent and compressible. There is no evidence of right upper extremity superficial thrombo phlebitis involving the veins imaged. Ordering Physician: Nicci Layton Referring Physician: Mallory Robertson Performed By: Nina Pace RVT ???
== END | disposition home or self-care (01) ==
PROVIDERS: PCP Family Medicine; Referring Provider Emergency Medicine; Visit Provider Emergency Medicine
DX: R22.31 Localized swelling, mass and lump, right upper limb (principal)
CPT/HCPCS: 93971